=== PATIENT | female | born 1940 | race Caucasian/White ===

== ENCOUNTER 2020-02-23 14:05 | Emergency (ER) | payer MEDICARE, SELFPAY ==
[2020-02-23 14:20] VITALS: BP 146/60; PULSE 71; RESP 18; TEMP 36.6; O2SAT 94
--- NOTE | 2020-02-23 14:20 | ED.EXTPRO ---
HPI - Extremity Problem General Chief complaint: Extremity Problem,Nontraumatic Stated complaint: foot problems History of Present Illness HPI Narrative: This is patient that comes in complaining of leg pain. Patient was prescribed clinidmycin for cellulitis on 01/13/2020. Patient bilateral legs have new wounds that are draining and are not healing and draining. Patient states that pain is intermitten and she is using silver cream that was given last year for a wound. Patient Related Data Home Medications Medication Instructions Recorded Confirmed potassium chloride 10 mEq 10 meq PO DAILY 09/15/19 tablet,extended release fluticasone propionate 50 1 - 2 spray NASAL DAILY PRN ml 01/10/20 mcg/actuation nasal spray,suspension ipratropium bromide 0.02 % See Rx Instructions .ROUTE 01/10/20 solution for inhalation .COMPLEX PRN levothyroxine 150 mcg tablet 150 mcg PO DAILY 01/10/20 nystatin 100,000 unit/gram topical See Rx Instructions .ROUTE .COMPLEX 01/10/20 cream pantoprazole 40 mg tablet,delayed 40 mg PO DAILY tablet 01/10/20 release zolpidem 5 mg tablet 5 mg PO .COMPLEX 01/10/20 albuterol sulfate 02/23/20 budesonide-formoterol [Symbicort] INHALATION 02/23/20 clindamycin HCl 02/23/20 Allergies Allergy/AdvReac Type Severity Reaction Status Date / Time QIANA Inhibitors Allergy Mild Verified 08/11/14 12:21 Penicillins Allergy Unknown Verified 12/08/16 10:22 Review of Systems Review of Systems: Narrative: CONSTITUTIONAL: Denies fever, chills, or sweats. EYES: Denies visual changes, redness, or discharge. ENT: Denies rhinorrhea, congestion, sore throat, or otalgia. CARDIOVASCULAR:Denies chest pain, palpitations, or edema. RESPIRATORY: Denies cough or dyspnea. GASTROINTESTINAL: Denies abdominal pain, nausea, vomiting, or diarrhea. GENITOURINARY: Denies dysuria or hematuria. SKIN:[Denies rash or itching. reports bilateral leg wounds and flaky dry skin MUSCULOSKELETAL:Denies back pain, joint pain, or myalgia. NEUROLOGIC: Denies headache, numbness, or weakness. PSYCHIATRIC:Denies anxiety or depression [facility] Social History Social History Smoking status: Never smoker Second hand tobacco smoke exposure: Yes Alcohol intake: never Comments At time as signature, I have reviewed and agree with nursing past medical, social, surgical and family history. Please see nursing chart for further information. There is no relevant family history pertinent to the presenting complaint. Exam Narrative: Exam Narrative: GENERAL:Well-appearing, well-nourished, and in no acute distress. HEAD:Normocephalic, atraumatic. EYES: PERRLA and EOMI. ENT: Nares clear, no rhinorrhea or epistaxis. Mucous membranes moist. NECK: Supple. CHEST: Clear to auscultation. No respiratory distress. HEART: Regular rate and rhythm. No murmur heard. Normal peripheral pulses. ABDOMEN: Soft, nontender, nondistended, normal active bowel sounds. EXTREMITIES: Normal range of motion. 4+ pitting edema with bilateral leg flaking and some erythema and open wounds on biateral heels with foul smelling yellowish drainage and some maceration starting. . SKIN: Warm, dry, no rash. NEURO: No focal deficits. Alert and oriented x3. 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 Information faxed to [facility] [phone] per patient request due that is who she used to have. Call placed to Dr. Hinojosa who is not bath design sales consultant so call placed to .dr Vazquez . Spoke with Arun who informed me that they generally make their own decisions for their own patient but since the insurance will pay for and this patient has already had them before he does not see any reason why this patient cannot be seen by home health and to make sure to have them follow up with Micaela Vital Signs Vital signs: Vital Signs Temperature 97.9 F 02/23/20 14:20
--- NOTE | 2020-02-23 14:39 | PC.NURSE ---
aware commodity supervisor will measure legs.
--- NOTE | 2020-02-23 14:41 | PC.NURSE ---
scallop cutter machine called for wound consult and assistance at home with care.
--- NOTE | 2020-02-23 14:52 | PC.NURSE ---
awaiting call back from pmd or covering pmd.
--- NOTE | 2020-02-23 15:21 | PC.NURSE ---
arleen wrap applied to left foot lower ankle area.
--- NOTE | 2020-02-23 15:32 | PC.NURSE ---
arleen wrap was loosely applied to left lower ankle foot area. given second arleen wrap to change if soiled with drainage. stated has friend at home that can help to change.
--- NOTE | 2020-02-23 15:35 | PC.NURSE ---
[employer] did fax information in regard to pt pmd bacon stringer consult by president mortgage company for wound care.
== END 2020-02-23 15:42 | disposition home or self-care (01) ==
PROVIDERS: Emergency Provider Nurse Practitioner Family; PCP Emergency Medicine
DX: R60.0 Localized edema (principal); L98.8 Other specified disorders of the skin and subcutaneous tissue; Z86.718 Personal history of other venous thrombosis and embolism; I10 Essential (primary) hypertension; I73.9 Peripheral vascular disease, unspecified; J44.9 Chronic obstructive pulmonary disease, unspecified; F32.9 Major depressive disorder, single episode, unspecified; E03.9 Hypothyroidism, unspecified
CPT/HCPCS: 99212; G0463

== ENCOUNTER 2020-04-06 15:24 | Observation (INO) | payer MEDICARE, MEDICAID, SELFPAY ==
[2020-04-06] VITALS (25 sets, daily range): BP systolic 102–146; BP diastolic 61–78; PULSE 66–80; RESP 15–20; TEMP 36.4–36.8; O2SAT 90–98; BMI 38.7
--- NOTE | ~2020-04-06 | XR_ITS ---
EXAMINATION: XR shoulder RT min 2V EXAM DATE: 04/06/2020 17:13 INDICATION: Right shoulder pain, fall. TECHNIQUE: The following right shoulder projections obtained: frontal projection , Grashey, and scapu lar Y view (4+ views). There is no prior study for comparison. FINDINGS: There is acute mildly comminuted right humeral neck fracture with posterior angulation, ant erior displacement. There is also fracture of the greater tuberosity of the right humeral head. Close d, posttraumatic findings. Overlying soft tissue swelling. IMPRESSION: Acute comminuted right humeral neck and greater tuberosity fractures. Reviewed, dictated and finalized at location A. IMPRESSION: Acute comminuted right humeral neck and greater tuberosity fractdonato es.
--- NOTE | ~2020-04-06 | US_ITS ---
EXAMINATION: US carotid duplex BI DATE: 04/07/2020 08:59 INDICATION: Vertigo. TECHNIQUE: Grayscale, color Doppler, and pulsed Doppler images of the cervical carotid arteries were obtained. The degree of vessel stenosis is placed in one of the following categories: normal, <50%, 5 0-69%, >=70% but less than near-occlusion, near-occlusion, or total occlusion. Note that percent sten osis relative to normal distal artery lumen diameter is indirectly measured from velocity measurement s as described by Michael, et al. Radiology 2003; [id number]. COMPARISON: None. FINDINGS: RIGHT: The right common carotid artery (CCA) peak systolic velocity (PSV) is 102 cm/s. The right internal ca rotid artery (ICA) PSV is 74 cm/s. The right ICA end-diastolic velocity (EDV) is 11 cm/s. The right I CA/CCA PSV ratio is 0.7. Grayscale and color Doppler images yield an estimate of <50% diameter reduct ion from plaque in the ICA. There is antegrade flow in the right vertebral artery. LEFT: The left CCA PSV is 87 cm/s. The left ICA PSV is 87 cm/s. The left ICA EDV is 16 cm/s. The left ICA/C CA PSV ratio is 1.0. Grayscale and color Doppler images yield an estimate of <50% diameter reduction from plaque in the ICA. There is antegrade flow in the left vertebral artery. IMPRESSION: 1. <50% stenosis in the right internal carotid artery. 2. <50% stenosis in the left internal carotid artery. Reviewed, dictated and finalized at location A.
--- NOTE | ~2020-04-06 | CT_ITS ---
EXAMINATION: CT cervical spine wo con DATE: 04/07/2020 08:59 INDICATION: Neck discomfort. Fall. TECHNIQUE: Computed tomography (CT) of the cervical spine was performed without intravenous contrast. Automated exposure control and iterative reconstruction technique were employed. The dose-length pro duct was 511.05 mGy-cm. COMPARISON: None FINDINGS: There is mild emphysema. There is a coarse calcification in right thyroid lobe. Bone alignm ent is normal. Vertebral body heights are normal. There is moderately decreased disc height at C4-C5. The following disc levels are specifically discussed: C2-C3: There is no uncovertebral joint osteoarthritis. There is mild right and severe left facet join t osteoarthritis. There is mild left neural foraminal stenosis. There is no central canal stenosis. C3-C4: There is no uncovertebral joint osteoarthritis. There is mild bilateral facet joint osteoarthr itis. There is no neural foraminal stenosis. There is no central canal stenosis. C4-C5: There is severe right and mild left uncovertebral joint osteoarthritis. There is mild right an d moderate left facet joint osteoarthritis. There is mild bilateral neural foraminal stenosis. There is mild central canal stenosis. C5-C6: There is mild bilateral uncovertebral joint osteoarthritis. There is mild right and severe lef t facet joint osteoarthritis. There is mild left neural foraminal stenosis. There is no central canal stenosis. C6-C7: There is no uncovertebral joint osteoarthritis. There is severe bilateral facet joint osteoart hritis. There is mild bilateral neural foraminal stenosis. There is no central canal stenosis. C7-T1: There is no uncovertebral joint osteoarthritis. There is severe right and moderate left facet joint osteoarthritis. There is mild right neural foraminal stenosis. There is no central canal stenos is. IMPRESSION: 1. No fracture. 2. Moderate cervical spondylosis. Reviewed, dictated and finalized at location A.
--- NOTE | ~2020-04-06 | CT_ITS ---
EXAMINATION: CT brain wo con DATE: 04/07/2020 08:59 INDICATION: Vertigo. TECHNIQUE: Computed tomography (CT) of the head was performed without intravenous contrast. The dose- length product was 605.33 mGy-cm. The mA was adjusted according to patient size. Iterative reconstruc tion technique was employed. COMPARISON: None FINDINGS: No acute intracranial hemorrhage, infarction, mass or mass effect. There are scattered mild periventricular and subcortical white matter changes, most likely related to small vessel ischemic d isease (microangiopathy). No ventriculomegaly or midline shift. Basilar cisterns are patent. Midline sagittal images are unrema rkable. Paranasal sinuses and mastoids are pneumatized. No depressed skull fractures. IMPRESSION: 1. No acute intracranial abnormality. 2: Chronic age-related findings. Reviewed, dictated and finalized at location A.
--- NOTE | ~2020-04-06 | XR_ITS ---
EXAMINATION: XR chest 1V portable EXAM DATE: 04/08/2020 16:19 INDICATION: Hypoxia. Right humeral head fracture. TECHNIQUE: Portable AP frontal chest x-ray was obtained. Comparison is made to prior examination from 04/06/2020. FINDINGS: Cardiomegaly and pulmonary vascular congestion. Some prominent reticulation, possible mild pulmonary edema. Probable small pleural effusions. Bibasilar subsegmental atelectasis. No pneumothora x, confluent consolidation. There is aortic arteriosclerosis. Comminuted right humeral neck fracture with interval increase in displacement. IMPRESSION: 1. Possible developing fluid overload/CHF. 2. Comminuted right humeral neck fracture with increase in displacement. 3. Bibasilar atelectasis. Reviewed, dictated and finalized at location A.
--- NOTE | ~2020-04-06 | XR_ITS ---
EXAMINATION: XR chest 1V portable EXAM DATE: 04/06/2020 17:13 INDICATION: Wheezing. TECHNIQUE: Frontal and lateral projections of the chest obtained and reviewed. Comparison is made to prior examination from 12/22/2018. FINDINGS: Mildly increased density right lower lateral lung zone new compared to prior study, probabl y subsegmental atelectasis. There are no pleural effusions. The cardiomediastinal silhouette is with in normal limits. There is no pneumothorax suspected. Right humeral neck fracture. Prominent right epicardial fat pad again noted. IMPRESSION: 1. Small amount of right basilar opacity probably atelectasis. 2. Right humeral neck fracture. Reviewed, dictated and finalized at location A.
--- NOTE | 2020-04-06 15:54 | PC.NURSE ---
Pt fell on ground and laid there from last night at approx 2200 til 1400 today. Pt has echymosis to R shoulder and upper arm. Pt states she can not move her R arm. Pt states she has R knee pain. Pt states she has back pain. Pt states she got dizzy and that is why she fell. Pt states she did not hit her head. Pt states she gets dizzy often. Pt O2 was 89-91% on RA. 2L/n.c applied and O2 now 96%.Pt has call light in reach
[2020-04-06 16:31] LABS: Basophils Percent Auto 0.4 % (0.2-1.2); Hematocrit 45.7 % (37.0-47.0); Hemoglobin 15.1 g/dL (12.0-15.0); Immature Granulocyte Absolute 0.02 K/mm3 (0.00-0.031); Immature Granulocyte Percent A 0.2 % (0-0.5); Lymphocytes Absolute Auto 1.12 K/mm3 (0.9-3.2); Lymphocytes Percent Auto 13.3 % (18.3-44.2); Mean Corpuscular Hemoglobin 29.2 pg (26-34); Mean Corpuscular Volume 88.2 fl (80-100); Mean Platelet Volume 11.8 fl (7.4-10.4); Monocytes Absolute Auto 0.7 K/mm3 (0.1-0.6); Monocytes Percent Auto 8.4 % (2.6-8.5); Neutrophils Absolute Auto 6.5 K/mm3 (1.3-6.7); Neutrophils Percent Auto 77.7 % (45.5-73.1); Platelet Count Result 268 k/mm3 (150-375); Red Blood Count 5.18 M/mm3 (4.2-5.4); Red Cell Distribution Width 15.1 % (11.5-14.5); White Blood Count 8.4 K/mm3 (4.5-10.0)
[2020-04-06 16:42] LABS: Alanine Aminotransferase 19 U/L (4-35); Albumin Level 3.9 g/dL (3.5-5.1); Alkaline Phosphatase 111 U/L (38-126); Aspartate Amino Transferase 33 U/L (14-36); Bilirubin,Total 0.8 mg/dL (0.2-1.3); Blood Urea Nitrogen 17 mg/dL (7-17); Calcium 9.6 mg/dL (8.4-10.2); Carbon Dioxide 29 mmol/L (22-30); Chloride 102 mmol/L (98-107); Creatine Kinase 354 U/L (30-135); Estimated CRCL calculation 62 ml/min; Estimated Glomerular Filt Rate > 60; Glucose 141 mg/dL (65-105); Potassium 3.8 mmol/L (3.4-5.0); Sodium 138 mmol/L (137-145)
[2020-04-06 17:02] LABS: Add Urine Microscopic? YES; Appearance Urine Clear (Clear); Bacteria Urine Trace /hpf; Bilirubin Urine Negative (Negative); Blood Urine Negative (Negative); Color Urine Yellow (Yellow); Glucose Urine UA Negative (Negative); Ketones Urine Negative (Negative); Leukocyte Esterase Ur Negative LEU/UL (Negative); Mucus Urine Few /lpf; Nitrate Urine Negative (Negative); Protein Urine 1+ mg/dL (Negative); RBC Urine 0-2 /hpf (0-2); Specific Grav Ur 1.029 (1.001-1.035); Squamous Epithelial Cell Urine Rare /hpf (Few); Urobilinogen Urine Negative mg/dL (<2.0); WBC Urine 0-3 /hpf
--- NOTE | 2020-04-06 17:11 | ED.GENADULT ---
HPI - General Adult General Chief complaint: Fall Stated complaint: FALL History of Present Illness HPI narrative: Patient is a 79-year-old female who presents the ER after a fall last night. Patient was laying in her recliner when she got dizzy and tried to get up. She then fell over the armchair and onto her side. She is unable to get herself up off the floor due to pain and her size. Patient has significant pain in her right shoulder and is unable to perform range of motion. Denies striking her head or losing consciousness. No difficulty breathing despite having pulse oximetry reading of 88% on room air. She has COPD and continues to smoke but is not oxygen dependent. No new cough or fever. Related Data Home Medications Medication Instructions Recorded Confirmed potassium chloride 10 mEq 10 meq PO DAILY 09/15/19 tablet,extended release fluticasone propionate 50 1 - 2 spray NASAL DAILY PRN ml 01/10/20 mcg/actuation nasal spray,suspension ipratropium bromide 0.02 % See Rx Instructions .ROUTE 01/10/20 solution for inhalation .COMPLEX PRN levothyroxine 150 mcg tablet 150 mcg PO DAILY 01/10/20 nystatin 100,000 unit/gram topical See Rx Instructions .ROUTE .COMPLEX 01/10/20 cream pantoprazole 40 mg tablet,delayed 40 mg PO DAILY tablet 01/10/20 release zolpidem 5 mg tablet 5 mg PO .COMPLEX 01/10/20 albuterol sulfate 02/23/20 budesonide-formoterol [Symbicort] INHALATION 02/23/20 Allergies Allergy/AdvReac Type Severity Reaction Status Date / Time QIANA Inhibitors Allergy Mild Unknown Verified 04/06/20 15:34 Penicillins Allergy Unknown Hives Verified 04/06/20 15:34 Review of Systems Review of Systems: All systems reviewed & are unremarkable except as noted in HPI and below Constitutional: Constitutional: Denies fatigue, Denies fever(s) and Denies weakness ENT: Denies nasal congestion and Denies sore throat Cardiovascular: Cardiovascular: Denies chest pain and Denies radiating jaw, neck or arm pain Respiratory: Respiratory: Denies cough, Denies dyspnea and Reports wheezing Gastrointestinal: Gastrointestinal: Denies abdominal pain, Denies nausea and Denies vomiting Musculoskeletal: Musculoskeletal: Reports arthralgias PMF Past Medical History Medical History (Updated 04/06/20 @ 18:38 by Jacek Del Cid MD) Depression Hyperglycemia Hypothyroidism (acquired) Surgical History Surgical History (Updated 04/06/20 @ 18:34 by Jacek Del Cid MD) History of section History of cholecystectomy Social History Social History Smoking status: Never smoker Second hand tobacco smoke exposure: Yes Alcohol intake: never Gender identity (if verbalized by the patient): Female Exam Narrative: Exam Narrative: GENERAL: Chronically ill-appearing, morbidly obese, and in no acute distress. HEAD: Normocephalic, atraumatic. ENT: Mucous membranes moist. CHEST: Expiratory wheezing throughout. No respiratory distress. HEART: Regular rate and rhythm. Normal peripheral pulses. ABDOMEN: Soft, nontender, nondistended. EXTREMITIES: Limited range of motion of the right upper extremity at the shoulder, significant bruising in this area with tenderness palpation. Otherwise able to range at the elbow and wrist in the affected extremity. SKIN: Warm, dry, chronic venous stasis changes with cracked skin is slightly pink in color to the lower extremities. NEURO: Alert and oriented x3. PSYCH: Normal mood and affect. Course Course Emergency Course: Patient will be admitted to the hospitalist service and orthopedic surgery has been consulted. Patient will be placed in a sling for immobilization/comfort. Patient will likely need fci placement given her recent injury, her decrease in ability to be mobile, and living by herself. Vital Signs Vital signs: Vital Signs Temperature 97.6 F 04/06/20 15:34 Pulse Rate 73 04/06/20 15:34 Respiratory Rate 18 04/06/20 15:34 Bloo
--- NOTE | 2020-04-06 19:49 | PC.NURSE ---
Pt has #20 IV gauge in RFA
--- NOTE | 2020-04-06 20:27 | ADMGEN ---
This patient, Arielle Pittman, was admitted to [facility] Surg Room 316-01. Patient/family oriented to hospital policies and general routines including ID bracelet, bed and alarms, visiting hours, pain management, procedures, bathroom and other care routines, personal items, smoking policy, room service/diet, and visiting hours. Valuables list has been completed. Information on how to activate the Rapid Response Team has been discussed. Patient/Family are encouraged to report perceived risks to care and to ask questions if they do not understand what they are told or what they should do.
[2020-04-06] MEDS: ALBUTEROL SULFATE NEB 2.5 MG/0.5 ML INH 5 MG INHALATION (20:52)
[2020-04-06] MEDS: IPRATROPIUM BR 0.02% INH SOLN 0.5 MG/2.5 ML VIAL INHALATION (20:53)
[2020-04-06] MEDS: ONDANSETRON INJ 4 MG/2 ML VIAL IV PUSH (23:16)
[2020-04-07] VITALS (17 sets, daily range): BP systolic 116–148; BP diastolic 52–59; PULSE 56–80; RESP 18–22; TEMP 36.6–36.8; O2SAT 92–94; BMI 38.7
[2020-04-07] MEDS: ALBUTEROL SULFATE NEB 2.5 MG/0.5 ML INH 5 MG INHALATION ×4 (01:57→20:48)
[2020-04-07] MEDS: IPRATROPIUM BR 0.02% INH SOLN 0.5 MG/2.5 ML VIAL INHALATION ×4 (01:58→20:49)
--- NOTE | 2020-04-07 04:22 | PM.IMHP ---
H&P: HPI History of Present Illness Chief complaint: Fell and could not get up Narrative: Date and time of patient contact: 04/07/2020 at 5:00 a.m.. Arielle Pittman is a 79 year old female with a past medical history of COPD, peripheral vascular disease, and morbid obesity who presented to the ER from home via EMS after having fallen. The patient reported that she fell on the evening of the and laid on the floor until her neighbor found her on the afternoon of the . The patient reports that she was going to sit down in her recliner and the room started spinning she got nauseated and she fell. She fell landing on her right arm. She was unable to push herself up off the floor. She reports that she has been having intermittent dizziness if she would hold her head in a certain position. She denies the vertigo being instituted by turning her head a certain way. She reports that the room literally spins. The symptoms have been going on for 3 days. She reports that if she puts her head back on the pillow with her head elevated at 40? if she leaves her head in that position for 30 seconds or so she becomes extremely dizzy, nauseated and weak. She denies any headache or head trauma. She denies any history of having strokes or prior episodes of vertigo. She reports that her right ear is always dry and has flaky material in it. She reports that it itches all the time so she does use Q-tips. She denies any ear pain in either ear. She denies any changes in hearing. She does ambulate with a walker or a cane. She states that she is independent in activities of daily living and still drives. She reports that she has a chronic cough. She still continues to smoke 1.5 packs of cigarettes per day. She has a cough that is productive of clear sputum. She reports improvement in her cough with nebulized treatments. She denies any recent ill contacts. She has not had any recent travel. She denies any changes in her bowel habits. She denies any problems with urinary incontinence when she coughs. She has chronic venous stasis changes to her lower extremities with thick flaking skin. She reports that her vascular doctor gave her a tub of cream that she is post use on her legs daily. However she is not able to reach her own feet and ankles. She states that she is supposed to see the pre sales network engineer today or tomorrow as outpatient. She reports that her legs are always red and she does not think there any more swollen than usual. She reports that she pays her bills via money order. She is very concerned that she will not be able to pay her bills today. She cannot think of anyone she would trust 2 pay her bills. Review of Systems Review of Systems: Narrative: 12 systems were reviewed with pertinent positives and negatives per HPI. Except as documented in the HPI, all other systems were reviewed and are negative. [facility] Past Medical History Medical History (Updated 04/07/20 @ 07:19 by Macy Reed DO) Chronic venous stasis dermatitis COPD (chronic obstructive pulmonary disease) Depression Hyperglycemia Hypothyroidism (acquired) Kidney stones Right kidney stone December 2018 Rheumatoid arthritis Surgical History Surgical History (Updated 04/07/20 @ 04:45 by Macy Reed DO) History of section X1 History of cholecystectomy History of evacuation of hematoma Of lateral thigh 2013 Status post cataract extraction of both eyes with insertion of intraocular lens 2003 Family History Family History (Updated 04/07/20 @ 04:31 by Macy Reed DO) Sibling Patient's sister is in good health Mother Diabetes mellitus, Onset Age: 41 Father Heart attack Cardiovascular disease Social History Social History (Updated 04/07/20 @ 07:12 by Macy Reed DO) Social History: Primary care physician: Dr. Henry Hinojosa Code status: DNI Medical POA: Fatemeh Pittman Smoking packs per
[2020-04-07 06:12] LABS: Hematocrit 43.4 % (37.0-47.0); Hemoglobin 13.9 g/dL (12.0-15.0); Mean Corpuscular Hemoglobin 28.8 pg (26-34); Mean Platelet Volume 12.1 fl (7.4-10.4); Platelet Count Result 278 k/mm3 (150-375); Red Blood Count 4.82 M/mm3 (4.2-5.4); Red Cell Distribution Width 15.4 % (11.5-14.5); White Blood Count 8.8 K/mm3 (4.5-10.0)
[2020-04-07 06:20] LABS: Blood Urea Nitrogen 19 mg/dL (7-17); Carbon Dioxide 33 mmol/L (22-30); Chloride 100 mmol/L (98-107); Creatine Kinase 194 U/L (30-135); Estimated CRCL calculation 54 ml/min; Estimated Glomerular Filt Rate 60; Glucose 128 mg/dL (65-105); Potassium 3.9 mmol/L (3.4-5.0); Sodium 140 mmol/L (137-145)
[2020-04-07] MEDS: SODIUM CHLORIDE 0.9% IV 1,000 ML 80 ML IV CONT ×2 (06:32→19:12)
[2020-04-07] MEDS: LEVOTHYROXINE SODIUM 150 MCG TABLET PO (06:34)
[2020-04-07] MEDS: EUCERIN CREAM 120 GM JAR 1 APPLIC TOPICAL (09:48)
[2020-04-07] MEDS: SERTRALINE HCL 25 MG TABLET PO (09:48)
[2020-04-07] MEDS: POTASSIUM CHLORIDE 10 MEQ TABLET.ER PO (09:49)
[2020-04-07] MEDS: PANTOPRAZOLE 40 MG TABLET PO (09:49)
[2020-04-07] MEDS: methocarbamoL 500 MG TABLET PO ×4 (09:49→20:05)
[2020-04-07] MEDS: LOSARTAN POTASSIUM 50 MG TABLET PO (09:49)
[2020-04-07] MEDS: ONDANSETRON INJ 4 MG/2 ML VIAL IV PUSH (10:08)
--- NOTE | 2020-04-07 17:11 | PM.IMPN ---
Progress Note: A&P Assessment and Plan (1) Fracture of neck of humerus: Qualifiers: Encounter type: initial encounter Fracture type: closed Laterality: right Qualified Code(s): S42.211A - Unspecified displaced fracture of surgical neck of right humerus, initial encounter for closed fracture Code(s): S42.213A - Unspecified displaced fracture of surgical neck of unspecified humerus, initial encounter for closed fracture Status: Acute Assessment and Plan: Patient's arm is in an immobilizer. Dr. Yoon has been consulted. The patient will need placement for rehabilitation at discharge. (2) Vertigo: Code(s): R42 - Dizziness and giddiness Status: Acute Assessment and Plan: Given the patient's smoking history and history of peripheral vascular disease she has certainly had increased risk of stroke. But vertigo is positional and CT of the brain, carotid Doppler and CT of C-spine all unremarkable Will also check carotid Dopplers. meclizine as needed for vertigo. The patient reports frequent dry heaves due to vertigo related nausea. holding the patient's home Lasix and actually initiated IV fluids as the patient appears clinically dry. (3) Chronic obstructive pulmonary disease with hypoxia: Code(s): J44.9 - Chronic obstructive pulmonary disease, unspecified; R09.02 - Hypoxemia Status: Acute Assessment and Plan: l resumed the patient's home Symbicort and p.r.n. albuterol and Atrovent nebs. The patient would benefit from smoking cessation. Nicotine patch will be provided if desired. (4) Fall as cause of accidental injury in home as place of occurrence: Qualifiers: Encounter type: initial encounter Qualified Code(s): W19.XXXA - Unspecified fall, initial encounter; Y92.009 - Unspecified place in unspecified non-institutional (private) residence as the place of occurrence of the external cause Code(s): W19.XXXA - Unspecified fall, initial encounter; Y92.009 - Unspecified place in unspecified non-institutional (private) residence as the place of occurrence of the external cause Status: Acute Assessment and Plan: Patient fell and was down for a little less than 24 hours before neighbors found her. CK was mildly elevated in the ER at 324 a.m. and decreased to 194 this a.m.. placed the patient on fall precautions. Patient will need placement given her acute humeral fracture and her difficulties with mobility. Subjective Date/time seen: 04/07/20 17:11 Interval history: Date of visit 04/07. 79-year-old hypertensive obese white female and fallen at home and unable to get up till neighbor found her. Blood to the emergency room found to have fractured humerus with mildly elevated CPK and admitted for treatment of same. She has been having positional vertigo at home. While sitting semi reactive in bed she is comfortable without any significant pain and no dizziness Exam Narrative: Exam Narrative: Blood pressure 116/52 pulse 64 afebrile Pupils equal reactive to light sclera anicteric Lungs clear CV regular rate rhythm no murmurs Abdomen soft nontender no masses Extremities right arm in a sling radial pulses 2+ symmetrical and moves fingers well Neuro alert cranial nerves are intact Objective Data Vital Signs Vital Signs: Vital Signs - 24 hr 04/06/20 17:15 04/06/20 17:30 04/06/20 17:45 Temperature Pulse Rate Respiratory Rate Blood Pressure Pulse Oximetry 94 95 95 04/06/20 18:00 04/06/20 18:15 04/06/20 18:30 Temperature Pulse Rate Respiratory Rate Blood Pressure Pulse Oximetry 96 98 98 04/06/20 18:45 04/06/20 19:41 04/06/20 19:58 Temperature 36.8 C Pulse Rate 67 72 Respiratory Rate 15 18 Blood Pressure 116/61 102/75 Pulse Oximetry 95 94 95 04/06/20 20:53 04/06/20 21:01 04/06/20 22:00 Temperature 36.6 C Pulse Rate 78 80 70 Respiratory Rate 20 20 18 Blood Pressure 146/
[2020-04-08] VITALS (20 sets, daily range): BP systolic 114–139; BP diastolic 45–50; PULSE 58–90; RESP 20–24; TEMP 36.7–37.1; O2SAT 89–97
[2020-04-08] MEDS: ALBUTEROL SULFATE NEB 2.5 MG/0.5 ML INH 5 MG INHALATION ×4 (04:19→21:39)
[2020-04-08] MEDS: IPRATROPIUM BR 0.02% INH SOLN 0.5 MG/2.5 ML VIAL INHALATION ×4 (04:19→21:39)
[2020-04-08] MEDS: LEVOTHYROXINE SODIUM 150 MCG TABLET PO (05:40)
[2020-04-08 06:04] LABS: Blood Urea Nitrogen 17 mg/dL (7-17); Calcium 8.3 mg/dL (8.4-10.2); Carbon Dioxide 34 mmol/L (22-30); Chloride 104 mmol/L (98-107); Creatine Kinase 94 U/L (30-135); Estimated CRCL calculation 68 ml/min; Estimated Glomerular Filt Rate > 60; Glucose 112 mg/dL (65-105); Potassium 3.7 mmol/L (3.4-5.0); Sodium 141 mmol/L (137-145)
[2020-04-08] MEDS: NICOTINE (*PBKC) 21 MG PATCH 1 PATCH TRANSDERM (08:10)
[2020-04-08] MEDS: methocarbamoL 500 MG TABLET PO ×3 (08:10→20:44)
[2020-04-08] MEDS: FLUTICASONE PROPIONATE 0.05% NA SPR 16 GM BTL (*BKC) NASAL (08:10)
[2020-04-08] MEDS: LOSARTAN POTASSIUM 50 MG TABLET PO (08:11)
[2020-04-08] MEDS: SERTRALINE HCL 25 MG TABLET PO (08:11)
[2020-04-08] MEDS: PANTOPRAZOLE 40 MG TABLET PO (08:11)
[2020-04-08] MEDS: POTASSIUM CHLORIDE 10 MEQ TABLET.ER PO (08:11)
[2020-04-08] MEDS: EUCERIN CREAM 120 GM JAR 1 APPLIC TOPICAL (08:11)
--- NOTE | 2020-04-08 11:05 | PCOTNOTE ---
Awaiting Ortho consult. Will complete OT evaluation when medically appropriate.
--- NOTE | 2020-04-08 14:39 | PM.IMPN ---
Progress Note: A&P Assessment and Plan (1) Fracture of neck of humerus: Qualifiers: Encounter type: initial encounter Fracture type: closed Laterality: right Qualified Code(s): S42.211A - Unspecified displaced fracture of surgical neck of right humerus, initial encounter for closed fracture Code(s): S42.213A - Unspecified displaced fracture of surgical neck of unspecified humerus, initial encounter for closed fracture Status: Acute Assessment and Plan: The patient suffered a mechanical fall. Right shouldler xray revealed an acute comminuted right humeral neck and greater tuberosity fracture. Dr. Yoon is on board and advised that they will proceed with non-operative management. She has the arm immobilized in a sling and will continue this per ortho. Management per ortho. Dr. Yoon is on board. Recommendations are greatly appreciated. Continue immobilization with sling Discussed with Dr. Yoon and the patient and the patient is willing to proceed with SNF at discharge Will check vitamin D level (2) Vertigo: Code(s): R42 - Dizziness and giddiness Status: Acute Assessment and Plan: The patient reports dizziness which is positional. She describes that she feels that the room is spinning. She denies lightheadedness. Her sx are likely due to benign positional vertigo. CT brain, carotid doppler, and CT C-spine were ordered due to the patients smoking hx and risk for PVD and were unremarkable. She has not taken meclizine yet. Will schedule meclizine Continue to monitor (3) Chronic obstructive pulmonary disease with hypoxia: Code(s): J44.9 - Chronic obstructive pulmonary disease, unspecified; R09.02 - Hypoxemia Status: Acute Assessment and Plan: Oxygen saturation at presentation to the ED was 88% on room air. She has a 91.5 pack-year smoking hx. She is on 2L per NC. She has expiratory wheezes and bronchial crackles. CO2 is elevated at 34, likely due to chronic retention from COPD. Will order repeat CXR Continue supplemental oxygen as needed to achieve a pulse oxygen saturation of 92% Continue nebulized bronchodilators as needed Continue symbicort Continue to encourage smoking cessation (4) Fall as cause of accidental injury in home as place of occurrence: Qualifiers: Encounter type: initial encounter Qualified Code(s): W19.XXXA - Unspecified fall, initial encounter; Y92.009 - Unspecified place in unspecified non-institutional (private) residence as the place of occurrence of the external cause Code(s): W19.XXXA - Unspecified fall, initial encounter; Y92.009 - Unspecified place in unspecified non-institutional (private) residence as the place of occurrence of the external cause Status: Acute Assessment and Plan: The patient suffered a mechanical fall and was down approx 24 hours prior to her neighbor finding her. CK was elevated at 354 at presentation and has trended down to 94 today. Continue fall precautions Pt paul need placement to continue PT/OT due to her acute humeral fracture affecting her dominant side. (5) Discharge planning issues: Code(s): Z02.9 - Encounter for administrative examinations, unspecified Status: Acute Assessment and Plan: The pt has agreed to go to SNF at discharge. Care coordination has sent out referrals. (6) Tobacco dependence: Code(s): F17.200 - Nicotine dependence, unspecified, uncomplicated Status: Acute Assessment and Plan: The pt is a heavy 91.5 pack-year smoker. I have encouraged smoking cessation. Continue to encourage smoking cessation Continue nicoderm patch Subjective Date/time seen: 04/08/20 14:39 Interval history: Mrs. Pittman is seen and examined at bedside. She reports positional vertigo intermittently. She denies lightheadedness. She denies headache. She denies chest pain and shortness of breath. S
[2020-04-08] MEDS: SODIUM CHLORIDE 0.9% IV 1,000 ML 80 ML IV CONT (15:32)
[2020-04-08 16:40] LABS: Blood Urea Nitrogen 16 mg/dL (7-17); Calcium 8.6 mg/dL (8.4-10.2); Carbon Dioxide 32 mmol/L (22-30); Chloride 104 mmol/L (98-107); Estimated CRCL calculation 68 ml/min; Estimated Glomerular Filt Rate > 60; Glucose 124 mg/dL (65-105); Potassium 3.8 mmol/L (3.4-5.0); Sodium 138 mmol/L (137-145)
[2020-04-08] MEDS: MECLIZINE HCL 12.5 MG TABLET PO ×2 (16:52→20:44)
[2020-04-08] MEDS: FUROSEMIDE INJ 40 MG/4 ML VIAL 20 MG IV PUSH (18:09)
[2020-04-08] MEDS: DORNASE ALFA INH SOLN 1 MG/ML 2.5 ML AMP 2.5 MG INHALATION (21:40)
[2020-04-09] VITALS (16 sets, daily range): BP systolic 115–121; BP diastolic 40–72; PULSE 61–89; RESP 16–22; TEMP 36.8–37; O2SAT 88–98
[2020-04-09 06:30] LABS: Hematocrit 39.6 % (37.0-47.0); Hemoglobin 12.5 g/dL (12.0-15.0); Mean Corpuscular HGB Conc 31.6 g/dl (32-36); Mean Corpuscular Hemoglobin 29.8 pg (26-34); Mean Corpuscular Volume 94.5 fl (80-100); Mean Platelet Volume 12.3 fl (7.4-10.4); Platelet Count Result 243 k/mm3 (150-375); Red Blood Count 4.19 M/mm3 (4.2-5.4); Red Cell Distribution Width 16.1 % (11.5-14.5); White Blood Count 10.4 K/mm3 (4.5-10.0)
[2020-04-09] MEDS: LEVOTHYROXINE SODIUM 150 MCG TABLET PO (06:37)
--- NOTE | 2020-04-09 07:39 | PM.CNOR ---
Assessment and Plan Assessment and plan (1) Fracture of neck of humerus: Qualifiers: Encounter type: initial encounter Fracture type: closed Laterality: right Qualified Code(s): S42.211A - Unspecified displaced fracture of surgical neck of right humerus, initial encounter for closed fracture Code(s): S42.213A - Unspecified displaced fracture of surgical neck of unspecified humerus, initial encounter for closed fracture Status: Acute (2) Closed fracture of greater tuberosity of humerus: Qualifiers: Encounter type: initial encounter Fracture alignment: displaced Laterality: right Qualified Code(s): S42.251A - Displaced fracture of greater tuberosity of right humerus, initial encounter for closed fracture Code(s): S42.253A - Displaced fracture of greater tuberosity of unspecified humerus, initial encounter for closed fracture Status: Acute Assessment and Plan: Displaced proximal humerus fracture may be treated conservatively. Poor surgical candidate. Risks discussed. Limited motion and decreased functional strength expected. Continue sling for 4 weeks. Home with home health vs rehab. History of Present Illness HPI Consult date: 04/09/20 Consult reason: fracture Chief complaint: Fell and could not get up Narrative: Complains of severe right shoulder pain. Began after a fall several days ago. Was unable to get up off the floor, and found on the ground. History of dizzyness. No other injuries. Treated with a sling. Review of Systems Constitutional: Constitutional: Reports weakness Eyes: Eyes: Denies blurry vision ENT: Denies system reviewed and no additional complaints, except as documented Cardiovascular: Cardiovascular: Reports leg edema and Reports lightheadedness Respiratory: Respiratory: Reports cough Gastrointestinal: Gastrointestinal: Reports no additional gastrointestinal complaints Genitourinary: Genitourinary: Reports no additional female genitourinary complaints Musculoskeletal: Musculoskeletal: Reports arthralgias Integumentary/Breasts: Skin/Breast: Reports system reviewed and no additional complaints, except as docu Neurologic: Reports system reviewed and no additional complaints, except as documented Psychiatric: Psychiatric: Reports no additional psychiatric complaints [facility] Past Medical History Medical History Chronic venous stasis dermatitis COPD (chronic obstructive pulmonary disease) Depression Hyperglycemia Hypothyroidism (acquired) Kidney stones Right kidney stone December 2018 Rheumatoid arthritis Surgical History Surgical History History of section X1 History of cholecystectomy History of evacuation of hematoma Of lateral thigh 2014 Status post cataract extraction of both eyes with insertion of intraocular lens 2003 Family History Family History Sibling Patient's sister is in good health Mother Diabetes mellitus, Onset Age: 41 Father Heart attack Cardiovascular disease Social History Social History Social History: Primary care physician: Dr. Henry Hinojosa Code status: DNI Medical POA: Fatemeh Pittman Smoking packs per day: 1.5 Smoking cigarettes per day: 30.0 Years smoked: 61 Smoking pack-years: 91.50 Smoking status: Current every day smoker Tobacco type: cigarettes Second hand tobacco smoke exposure: No Alcohol intake: never Substance use: never Living arrangements: alone Additional living arrangements comments: The patient has been since 2013. [place]. She still drives. She has 1 daughter. 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 Gender identit
[2020-04-09 07:41] LABS: Vitamin D 25 Hydroxy 24.7 ng/mL
[2020-04-09] MEDS: POTASSIUM CHLORIDE 10 MEQ TABLET.ER PO (08:08)
[2020-04-09] MEDS: LOSARTAN POTASSIUM 50 MG TABLET PO (08:08)
[2020-04-09] MEDS: SERTRALINE HCL 25 MG TABLET PO (08:08)
[2020-04-09] MEDS: PANTOPRAZOLE 40 MG TABLET PO (08:08)
[2020-04-09] MEDS: methocarbamoL 500 MG TABLET PO ×4 (08:08→21:58)
[2020-04-09] MEDS: MECLIZINE HCL 12.5 MG TABLET PO ×4 (08:08→21:58)
[2020-04-09] MEDS: EUCERIN CREAM 120 GM JAR 1 APPLIC TOPICAL (08:09)
[2020-04-09] MEDS: ALBUTEROL SULFATE NEB 2.5 MG/0.5 ML INH 5 MG INHALATION ×3 (08:22→20:21)
[2020-04-09] MEDS: IPRATROPIUM BR 0.02% INH SOLN 0.5 MG/2.5 ML VIAL INHALATION ×3 (08:22→20:20)
[2020-04-09] MEDS: DORNASE ALFA INH SOLN 1 MG/ML 2.5 ML AMP 2.5 MG INHALATION ×2 (08:22→20:21)
--- NOTE | 2020-04-09 15:47 | PM.IMPN ---
Progress Note: A&P Assessment and Plan (1) Fracture of neck of humerus: Qualifiers: Encounter type: initial encounter Fracture type: closed Laterality: right Qualified Code(s): S42.211A - Unspecified displaced fracture of surgical neck of right humerus, initial encounter for closed fracture Code(s): S42.213A - Unspecified displaced fracture of surgical neck of unspecified humerus, initial encounter for closed fracture Status: Acute Assessment and Plan: Patient's arm is in an immobilizer. Dr. Yoon has The patient will need placement for rehabilitation at discharge. (2) Vertigo: Code(s): R42 - Dizziness and giddiness Status: Acute Assessment and Plan: Given the patient's smoking history and history of peripheral vascular disease she has certainly had increased risk of stroke. But vertigo is positional and CT of the brain, carotid Doppler and CT of C-spine all unremarkables. meclizine scheduled for vertigo. The patient reports frequent dry heaves due to vertigo related nausea. holding the patient's home Lasix and actually initiated IV fluids as the patient appears clinically dry on admission will discontinue IV fluids today. (3) Chronic obstructive pulmonary disease with hypoxia: Code(s): J44.9 - Chronic obstructive pulmonary disease, unspecified; R09.02 - Hypoxemia Status: Acute Assessment and Plan: l resumed the patient's home Symbicort and p.r.n. albuterol and Atrovent nebs. The patient would benefit from smoking cessation. Nicotine patch will be provided if desired. (4) Fall as cause of accidental injury in home as place of occurrence: Qualifiers: Encounter type: initial encounter Qualified Code(s): W19.XXXA - Unspecified fall, initial encounter; Y92.009 - Unspecified place in unspecified non-institutional (private) residence as the place of occurrence of the external cause Code(s): W19.XXXA - Unspecified fall, initial encounter; Y92.009 - Unspecified place in unspecified non-institutional (private) residence as the place of occurrence of the external cause Status: Acute Assessment and Plan: Patient fell and was down for a little less than 24 hours before neighbors found her. CK was mildly elevated in the ER at 324 a.m. and decreased to 194 this a.m.. And normal 6-4 placed the patient on fall precautions. Patient will need placement given her acute humeral fracture and her difficulties with mobility. Subjective Date/time seen: 04/09/20 15:47 Interval history: Date of visit 04/09. 79-year-old hypertensive obese white female and fallen at home and unable to get up till neighbor found her. Brought to the emergency room found to have fractured humerus with mildly elevated CPK and admitted for treatment of same. She has been having positional vertigo at home. While sitting semi erect in bed she is comfortable without any significant pain and no dizziness Exam Narrative: Exam Narrative: Blood pressure 120/50 pulse 62 afebrile Pupils equal reactive to light sclera anicteric Lungs clear CV regular rate rhythm no murmurs Abdomen soft nontender no masses Extremities right arm in a sling radial pulses 2+ symmetrical and moves fingers well Neuro alert cranial nerves are intact Objective Data Vital Signs Vital Signs: Vital Signs - 24 hr 04/08/20 16:00 04/08/20 19:30 04/08/20 20:00 Temperature Pulse Rate 69 90 Respiratory Rate Blood Pressure Pulse Oximetry 92 04/08/20 21:40 04/08/20 21:52 04/08/20 22:00 Temperature 36.7 C Pulse Rate 64 65 90 Respiratory Rate 22 H 20 22 H Blood Pressure 139/45 L Pulse Oximetry 93 90 04/09/20 00:00 04/09/20 04:00 04/09/20 06:00 Temperature 36.8 C Pulse Rate 61 79 72 Respiratory Rate 22 H Blood Pressure 119/40 L Pulse Oximetry 90 04/09/20 08:00 04/09/20 08:20 04/09/20 08:30 Temperature Pulse Rate 76 64 65 Respiratory Rate 20
[2020-04-09] MEDS: FUROSEMIDE INJ 40 MG/4 ML VIAL 20 MG IV PUSH (15:54)
[2020-04-10] VITALS (7 sets, daily range): BP systolic 118–146; BP diastolic 59–62; PULSE 58–102; RESP 20; TEMP 36.6; O2SAT 91–93
[2020-04-10] MEDS: LEVOTHYROXINE SODIUM 150 MCG TABLET PO (07:02)
[2020-04-10] MEDS: POTASSIUM CHLORIDE 10 MEQ TABLET.ER PO (09:36)
[2020-04-10] MEDS: MECLIZINE HCL 12.5 MG TABLET PO ×3 (09:36→16:23)
[2020-04-10] MEDS: PANTOPRAZOLE 40 MG TABLET PO (09:36)
[2020-04-10] MEDS: SERTRALINE HCL 25 MG TABLET PO (09:36)
[2020-04-10] MEDS: methocarbamoL 500 MG TABLET PO ×3 (09:36→16:23)
[2020-04-10] MEDS: FUROSEMIDE 40 MG TABLET PO (09:36)
[2020-04-10] MEDS: LOSARTAN POTASSIUM 50 MG TABLET PO (09:36)
[2020-04-10] MEDS: EUCERIN CREAM 120 GM JAR 1 APPLIC TOPICAL (09:41)
--- NOTE | 2020-04-10 10:05 | PCPTNOTE ---
Attempted Therapy session, pt declined therapy at this time due to having an upset stomach and requested therapy to come back later. Will attempt again.
--- NOTE | 2020-04-10 11:22 | PCNFU ---
Nutrition Follow-Up Complete: Inadequate Oral Intake as related to pain from fall as evidenced by poor po intake. Goal: Adequate Intake of at least 50% of meals. Progressing towards goal. We will continue current goal. Pt current nutrition is Heart Healthy. Nutrition recommendation:Agree Last recorded weight is 105.5 kg. Bowel Motility:+BM reported / Labs Reviewed:NO new labs to report. Meds Noted:Lasix,Protonix,Mucinex Additional Notes: Patient having nausea and stomach pain this morning. Refusing breakfast today. Overall intakes have been 20-80% of meals. Patient has diet supplements of Ensure compact BID providing additional 220 kcals and 9 gms protein. PO intake encouraged. Monitoring: RD will monitor every 5 days.
[2020-04-10 12:55] LABS: SARS-CoV-2 RNA PCR Negative
--- NOTE | 2020-04-10 18:18 | PM.DS ---
DS: Admitting Diagnosis Admitting Diagnosis Admitting Diagnosis: Unspecified displaced fracture of surgical neck of right humerus, initial encounter for closed fracture DS: Discharge Diagnosis Discharge Diagnosis (1) Fracture of neck of humerus: Qualifiers: Encounter type: initial encounter Fracture type: closed Laterality: right Qualified Code(s): S42.211A - Unspecified displaced fracture of surgical neck of right humerus, initial encounter for closed fracture Code(s): S42.213A - Unspecified displaced fracture of surgical neck of unspecified humerus, initial encounter for closed fracture Status: Acute Assessment and Plan: Patient's arm is in an immobilizer. Dr. Yoon saw from Ortho and suggested conservative treatment with no surgical intervention The patient transferred to [facility] for rehab. (2) Vertigo: Code(s): R42 - Dizziness and giddiness Status: Acute Assessment and Plan: Given the patient's smoking history and history of peripheral vascular disease she has certainly had increased risk of stroke. But vertigo is positional and CT of the brain, carotid Doppler and CT of C-spine all unremarkables. meclizine scheduled for vertigo. The patient reports frequent dry heaves due to vertigo related nausea at home. held the patient's home Lasix and actually initiated IV fluids as the patient appeared clinically dry on admission. Resumed Lasix on discharge (3) Chronic obstructive pulmonary disease with hypoxia: Code(s): J44.9 - Chronic obstructive pulmonary disease, unspecified; R09.02 - Hypoxemia Status: Acute Assessment and Plan: l resumed the patient's home Symbicort and p.r.n. albuterol and Atrovent nebs. The patient would benefit from smoking cessation. Nicotine patch will be provided if desired. Continue O2 supplement on discharge also (4) Fall as cause of accidental injury in home as place of occurrence: Qualifiers: Encounter type: initial encounter Qualified Code(s): W19.XXXA - Unspecified fall, initial encounter; Y92.009 - Unspecified place in unspecified non-institutional (private) residence as the place of occurrence of the external cause Code(s): W19.XXXA - Unspecified fall, initial encounter; Y92.009 - Unspecified place in unspecified non-institutional (private) residence as the place of occurrence of the external cause Status: Acute Assessment and Plan: Patient fell and was down for a little less than 24 hours before neighbors found her. CK was mildly elevated in the ER at 324 a.m. and decreased to 94 /3 placed the patient on fall precautions. Again transferred for rehab to [facility] DS: Summary Hospital Course Hospital Course: 79-year-old white female with COPD hypertension admitted with vertiginous episodes of fall and fracture of right humerus. Seen by OT PT and orthopedic surgery. Conservative treatment was deemed proper with no surgical intervention. She will continue arm in a sling and transferred to [facility] for rehab. Time Spent with Patient Time attestation: Total time spent providing and/or coordinating discharge services: 35 minutes Exam Narrative: Exam Narrative: Condition on discharge Blood pressure 118/60 pulse is 78 saturating 93% on 2 L nasal cannula Lungs clear prolonged expiratory phase no wheezing or rales CV regular rate rhythm no murmurs Abdomen soft nontender obese was umbilical hernia Extremities without edema good distal pulses right orbit and sling from humeral fracture Neuro alert still complains of intermittent vertiginous symptoms with change of position DS: Data Data Completed and Pending Labs on day of discharge: Labs from last 24 hours 04/09/20 12:19 SARS-CoV-2 RNA (RT-PCR) Negative Discharge Plan Discharge Attending physician on discharge: Timmy Hdez Consulting providers: [facility]
== END 2020-04-10 16:52 ==
LOC: ANHED 18:38 → ANH3MEDSUR 18:53
PROVIDERS: Internal Medicine; Physician Assistant; Admitting Provider Internal Medicine; Emergency Provider Emergency Medicine; PCP Emergency Medicine; Visit Provider Internal Medicine
DX: S42.211A Unspecified displaced fracture of surgical neck of right humerus, initial encounter for closed fracture (principal); S42.251A Displaced fracture of greater tuberosity of right humerus, initial encounter for closed fracture; W18.39XA Other fall on same level, initial encounter; R42 Dizziness and giddiness; E03.9 Hypothyroidism, unspecified; J44.9 Chronic obstructive pulmonary disease, unspecified; R09.02 Hypoxemia; M06.9 Rheumatoid arthritis, unspecified; F17.210 Nicotine dependence, cigarettes, uncomplicated; Z20.828 Contact with and (suspected) exposure to other viral communicable diseases; I73.9 Peripheral vascular disease, unspecified; E66.01 Morbid (severe) obesity due to excess calories; Z68.38 Body mass index [BMI] 38.0-38.9, adult; Z79.899 Other long term (current) drug therapy
CPT/HCPCS: 36415; 51701; 70450; 71045; 72125; 73030; 80048; 80053; 81001; 82306; 82550; 85025; 85027; 87635; 93880; 94640; 96361; 96374; 96375; 96376; 97110; 97116; 97162; 97166; 97530; 97535; 99285; A9270; C9803; G0378; J1940; J2405; J7030; U0003

== ENCOUNTER 2020-05-12 18:41 | Emergency (ER) | payer MEDICARE, MEDICAID, SELFPAY ==
[2020-05-12 19:12] VITALS: BP 137/72; PULSE 76; RESP 22; TEMP 36.2; O2SAT 95
[2020-05-12 19:29] LABS: Basophils Absolute Auto 0.1 K/mm3 (0.0-0.1); Basophils Percent Auto 0.8 % (0.2-1.2); Eosinophils Absolute Auto 0.2 K/mm3 (0-0.3); Eosinophils Percent Auto 1.3 % (0-4.4); Hematocrit 44.8 % (37.0-47.0); Hemoglobin 14.8 g/dL (12.0-15.0); Immature Granulocyte Absolute 0.03 K/mm3 (0.00-0.031); Immature Granulocyte Percent A 0.3 % (0-0.5); Lymphocytes Percent Auto 26.1 % (18.3-44.2); Mean Corpuscular Hemoglobin 29.8 pg (26-34); Mean Corpuscular Volume 90.1 fl (80-100); Mean Platelet Volume 11.3 fl (7.4-10.4); Monocytes Absolute Auto 0.5 K/mm3 (0.1-0.6); Monocytes Percent Auto 4.6 % (2.6-8.5); Neutrophils Absolute Auto 7.7 K/mm3 (1.3-6.7); Neutrophils Percent Auto 66.9 % (45.5-73.1); Platelet Count Result 332 k/mm3 (150-375); Red Blood Count 4.97 M/mm3 (4.2-5.4); Red Cell Distribution Width 16.9 % (11.5-14.5); White Blood Count 11.5 K/mm3 (4.5-10.0)
[2020-05-12 19:37] LABS: Alanine Aminotransferase 16 U/L (4-35); Alkaline Phosphatase 123 U/L (38-126); Aspartate Amino Transferase 25 U/L (14-36); Bilirubin,Total 0.4 mg/dL (0.2-1.3); Blood Urea Nitrogen 18 mg/dL (7-17); Carbon Dioxide 30 mmol/L (22-30); Chloride 102 mmol/L (98-107); Estimated CRCL calculation 56 ml/min; Estimated Glomerular Filt Rate > 60; Glucose 108 mg/dL (65-105); Lipase 56 U/L (23-300); Potassium 3.2 mmol/L (3.4-5.0); Sodium 139 mmol/L (137-145)
--- NOTE | 2020-05-12 20:20 | ED.NAVMDI ---
HPI - Nausea/Vomiting/Diarrhea General Chief complaint: Nausea/Vomiting/Diarrhea Stated complaint: diarrhea Time Seen by Provider: 05/12/20 20:08 History of Present Illness HPI Narrative: Patient is a 79-year-old female who presents the ER with diarrhea. Over the last couple of days she has had watery diarrhea. Yesterday it was 1 loose stool and today it was 2-3. Patient has no abdominal pain or cramping. No fevers or chills or dizziness. She is currently on doxycycline for boil that was prescribed on 05/06/2020. She has been taking her prescriptions as she is supposed to. Patient has right upper extremity immobilized in a sling due to a humerus fracture. She has follow-up on 05/18/2020 with her doctor for further evaluation and treatment. Patient used to be doing rehab at [facility] but is currently living at home. She has a friend she stays with her during the day and leaves at night. Because patient is started to have diarrhea she would like to stay in the hospital. Related Data Home Medications Medication Instructions Recorded Confirmed potassium chloride 10 mEq 10 meq PO DAILY 09/15/19 04/06/20 tablet,extended release fluticasone propionate 50 1 - 2 spray NASAL DAILY PRN ml 01/10/20 04/06/20 mcg/actuation nasal spray,suspension ipratropium bromide 0.02 % See Rx Instructions .ROUTE 01/10/20 04/06/20 solution for inhalation .COMPLEX PRN levothyroxine 150 mcg tablet 150 mcg PO DAILY 01/10/20 04/06/20 pantoprazole 40 mg tablet,delayed 40 mg PO DAILY tablet 01/10/20 04/06/20 release albuterol sulfate See Rx Instructions .ROUTE 02/23/20 04/06/20 .COMPLEX PRN budesonide-formoterol [Symbicort] 2 puff INHALATION BID 02/23/20 04/06/20 furosemide 20 mg PO QPM 04/06/20 04/06/20 furosemide 40 mg PO DAILY 04/06/20 04/06/20 silver sulfadiazine [SSD] 1 applic TOPICAL BID PRN 04/06/20 04/06/20 Allergies Allergy/AdvReac Type Severity Reaction Status Date / Time QIANA Inhibitors Allergy Mild Unknown Verified 04/06/20 15:34 Penicillins Allergy Unknown Hives Verified 04/06/20 15:34 Review of Systems Review of Systems: All systems reviewed & are unremarkable except as noted in HPI and below Constitutional: Constitutional: Denies chills, Denies fever(s) and Reports weakness ENT: Denies nasal congestion and Denies sore throat Cardiovascular: Cardiovascular: Denies chest pain and Denies radiating jaw, neck or arm pain Respiratory: Respiratory: Denies cough, Denies dyspnea and Denies wheezing Gastrointestinal: Gastrointestinal: Reports abdominal pain, Reports diarrhea, Denies nausea and Denies vomiting Genitourinary: Genitourinary: Denies nocturia and Denies dysuria [facility] Social History Social History Social History: Primary care physician: Dr. Henry Hinojosa Code status: DNI Medical POA: Fatemeh Pittman Smoking packs per day: 1.5 Smoking cigarettes per day: 30.0 Years smoked: 61 Smoking pack-years: 91.50 Smoking status: Current every day smoker Tobacco type: cigarettes Second hand tobacco smoke exposure: No Alcohol intake: never Substance use: never Additional living arrangements comments: The patient has been since 2013. She lives in a trailer park. She still drives. She has 1 daughter. 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 Gender identity (if verbalized by the patient): Female Spiritual care concerns: No Exam Narrative: Exam Narrative: GENERAL: Well-appearing, well-nourished, and in no acute distress. HEAD: Normocephalic, atraumatic. ENT: Mucous membranes moist. CHEST: Clear to auscultation. No respiratory distress. HEART: Regular rate and rhythm. Normal peripheral pulses. ABDOMEN: Soft, nontender, nondistended, normal active bowel sounds. EXTREMITIES: Right upper extremity immobilized in a sling, normal capillary refill and range of motion of fingers. 1+ edema in lower
[2020-05-12 20:32] VITALS: BP 137/72; BP 144/77; BP 172/80; PULSE 63; PULSE 76; PULSE 81
[2020-05-12 20:45] LABS: Add Urine Microscopic? NO; Appearance Urine Clear (Clear); Bilirubin Urine Negative (Negative); Blood Urine Negative (Negative); Color Urine Yellow (Yellow); Glucose Urine UA Negative (Negative); Ketones Urine Negative (Negative); Leukocyte Esterase Ur Negative LEU/UL (Negative); Nitrate Urine Negative (Negative); Protein Urine Negative (Negative); Specific Grav Ur 1.019 (1.001-1.035); Urobilinogen Urine Negative mg/dL (<2.0)
[2020-05-12] MEDS: ACETAMINOPHEN 500 MG TABLET 1000 MG PO (21:45)
[2020-05-12 22:15] VITALS: TEMP 36.2
[2020-05-12 23:02] VITALS: BP 145/77; PULSE 70; RESP 20; O2SAT 99
--- NOTE | 2020-05-12 23:23 | PC.NURSE ---
Called pt's friend Karuna to see if she could pick pt. up. 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 Karuna states pt does not have the money for that and she will figure something out. [phone]
[2020-05-13] VITALS: BP 142/75; PULSE 65; RESP 15; O2SAT 92
== END 2020-05-13 | disposition home or self-care (01) ==
PROVIDERS: Emergency Provider Emergency Medicine; PCP Emergency Medicine
DX: R19.7 Diarrhea, unspecified (principal); J44.9 Chronic obstructive pulmonary disease, unspecified; E03.9 Hypothyroidism, unspecified; F32.9 Major depressive disorder, single episode, unspecified; F17.210 Nicotine dependence, cigarettes, uncomplicated; M06.9 Rheumatoid arthritis, unspecified; Z98.42 Cataract extraction status, left eye; Z87.442 Personal history of urinary calculi; Z98.41 Cataract extraction status, right eye; Z96.1 Presence of intraocular lens
CPT/HCPCS: 36415; 51701; 80053; 81003; 83690; 85025; 99283; A9270

== ENCOUNTER 2020-05-14 15:22 | Emergency (ER) | payer MEDICARE, MEDICAID, SELFPAY ==
[2020-05-14 15:36] VITALS: BP 149/67; PULSE 71; RESP 18; TEMP 36.5; O2SAT 93
[2020-05-14 18:02] LABS: Add Urine Microscopic? NO; Appearance Urine Clear (Clear); Bilirubin Urine Negative (Negative); Blood Urine Negative (Negative); Color Urine Yellow (Yellow); Glucose Urine UA Negative (Negative); Ketones Urine Negative (Negative); Leukocyte Esterase Ur Negative LEU/UL (Negative); Nitrate Urine Negative (Negative); Protein Urine Negative (Negative); Specific Grav Ur 1.013 (1.001-1.035); Urobilinogen Urine Negative mg/dL (<2.0)
--- NOTE | 2020-05-14 18:09 | ED.GENADULT ---
HPI - General Adult General Chief complaint: Unspecified Stated complaint: weakness Time Seen by Provider: 05/14/20 17:32 History of Present Illness HPI narrative: Patient is a 79-year-old female who presents the ER with the desire to be placed at a rehabilitation facility. She was seen in the ER couple days ago for diarrhea related to antibiotic therapy. She reports the diarrhea has resolved itself. She does note some positional dizziness that lasts for only a couple seconds. It has not affected her balance. No fevers or chills or sweats. No new urinary frequency or urgency. No dysuria. She has no complaints other than that she would like to be placed. Care coordination contacted. Related Data Home Medications Medication Instructions Recorded Confirmed potassium chloride 10 mEq 10 meq PO DAILY 09/15/19 04/06/20 tablet,extended release fluticasone propionate 50 1 - 2 spray NASAL DAILY PRN ml 01/10/20 04/06/20 mcg/actuation nasal spray,suspension ipratropium bromide 0.02 % See Rx Instructions .ROUTE 01/10/20 04/06/20 solution for inhalation .COMPLEX PRN levothyroxine 150 mcg tablet 150 mcg PO DAILY 01/10/20 04/06/20 pantoprazole 40 mg tablet,delayed 40 mg PO DAILY tablet 01/10/20 04/06/20 release albuterol sulfate See Rx Instructions .ROUTE 02/23/20 04/06/20 .COMPLEX PRN budesonide-formoterol [Symbicort] 2 puff INHALATION BID 02/23/20 04/06/20 furosemide 20 mg PO QPM 04/06/20 04/06/20 furosemide 40 mg PO DAILY 04/06/20 04/06/20 silver sulfadiazine [SSD] 1 applic TOPICAL BID PRN 04/06/20 04/06/20 Allergies Allergy/AdvReac Type Severity Reaction Status Date / Time QIANA Inhibitors Allergy Mild Unknown Verified 04/06/20 15:34 Penicillins Allergy Unknown Hives Verified 04/06/20 15:34 Review of Systems Review of Systems: All systems reviewed & are unremarkable except as noted in HPI and below Constitutional: Constitutional: Denies chills, Denies fever(s) and Reports weakness (chronic) ENT: Reports dizziness, Denies nasal congestion and Denies sore throat Respiratory: Respiratory: Denies cough, Denies dyspnea and Denies wheezing Gastrointestinal: Gastrointestinal: Denies abdominal pain, Denies nausea and Denies vomiting PMFSH Social History Social History Social History: Primary care physician: Dr. Henry Hinojosa Code status: DNI Medical POA: Fatemeh Pittman Smoking packs per day: 1.5 Smoking cigarettes per day: 30.0 Years smoked: 61 Smoking pack-years: 91.50 Smoking status: Current every day smoker Tobacco type: cigarettes Second hand tobacco smoke exposure: No Alcohol intake: never Substance use: never Additional living arrangements comments: The patient has been since 2013. [place]. She still drives. She has 1 daughter. 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 Gender identity (if verbalized by the patient): Female Spiritual care concerns: No Exam Narrative: Exam Narrative: GENERAL: Well-appearing, well-nourished, and in no acute distress. HEAD: Normocephalic, atraumatic. CHEST: Clear to auscultation. No respiratory distress. HEART: Regular rate and rhythm. Normal peripheral pulses. ABDOMEN: Soft, nontender, nondistended. EXTREMITIES: Normal range of motion. Right upper extremity immobilized in a sling. SKIN: Warm, dry, no rash. NEURO: Alert and oriented x3. PSYCH: Normal mood and affect. Course Course Emergency Course: Unremarkable evaluation. Discharge home. She has been seen by care coordination. Patient has no medical reason go to [facility] she is also very particular about where she would like to go. Her friend will be here shortly to pick her up. Vital Signs Vital signs: Vital Signs Temperature 97.7 F 05/14/20 15:36 Pulse Rate 71 05/14/20 15:36 Respiratory Rate 18 05/14/20 15:36 Blood Pressure 149/67 H 05/14/20 1
[2020-05-14 18:11] LABS: Basophils Absolute Auto 0.1 K/mm3 (0.0-0.1); Basophils Percent Auto 0.8 % (0.2-1.2); Eosinophils Absolute Auto 0.1 K/mm3 (0-0.3); Eosinophils Percent Auto 0.6 % (0-4.4); Hematocrit 43.6 % (37.0-47.0); Hemoglobin 14.3 g/dL (12.0-15.0); Immature Granulocyte Absolute 0.03 K/mm3 (0.00-0.031); Immature Granulocyte Percent A 0.3 % (0-0.5); Lymphocytes Absolute Auto 2.97 K/mm3 (0.9-3.2); Lymphocytes Percent Auto 27.4 % (18.3-44.2); Mean Corpuscular HGB Conc 32.8 g/dl (32-36); Mean Corpuscular Hemoglobin 29.9 pg (26-34); Mean Platelet Volume 11.5 fl (7.4-10.4); Monocytes Absolute Auto 0.6 K/mm3 (0.1-0.6); Monocytes Percent Auto 5.1 % (2.6-8.5); Neutrophils Absolute Auto 7.1 K/mm3 (1.3-6.7); Neutrophils Percent Auto 65.8 % (45.5-73.1); Platelet Count Result 303 k/mm3 (150-375); Red Blood Count 4.79 M/mm3 (4.2-5.4); White Blood Count 10.8 K/mm3 (4.5-10.0)
[2020-05-14 18:24] LABS: Alanine Aminotransferase 17 U/L (4-35); Alkaline Phosphatase 118 U/L (38-126); Aspartate Amino Transferase 26 U/L (14-36); Bilirubin,Total 0.7 mg/dL (0.2-1.3); Blood Urea Nitrogen 14 mg/dL (7-17); Calcium 9.3 mg/dL (8.4-10.2); Carbon Dioxide 31 mmol/L (22-30); Chloride 99 mmol/L (98-107); Estimated CRCL calculation 63 ml/min; Estimated Glomerular Filt Rate > 60; Glucose 106 mg/dL (65-105); Lipase 45 U/L (23-300); Potassium 3.2 mmol/L (3.4-5.0); Sodium 139 mmol/L (137-145)
[2020-05-14] MEDS: MECLIZINE HCL 12.5 MG TABLET PO (18:48)
[2020-05-14 18:56] VITALS: BP 131/118; PULSE 61; RESP 18
--- NOTE | 2020-05-14 19:51 | PC.NURSE ---
Pt stating she can not go home. Friend is on speaker phone. Both are angry stating she cannot go home. I spoke with EDP and he said she is being d/c. I told friend and she became more angry.
[2020-05-14 20:29] VITALS: BP 144/67; PULSE 61; RESP 20; O2SAT 92
== END 2020-05-14 20:30 | disposition home or self-care (01) ==
PROVIDERS: Emergency Provider Emergency Medicine; PCP Emergency Medicine
DX: R42 Dizziness and giddiness (principal); F17.210 Nicotine dependence, cigarettes, uncomplicated
CPT/HCPCS: 36415; 80053; 81003; 83690; 85025; 99283; A9270

== ENCOUNTER 2021-02-22 17:53 | Observation (INO) | payer MEDICARE, MEDICAID, SELFPAY ==
--- NOTE | ~2021-02-22 | XR_ITS ---
XR chest 2V 02/22/2021 19:30 Indication: COPD. Hypertension. Procedure: AP and lateral views of the chest Comparison: Comparison to multiple prior studies sequentially, with oldest reviewed study dated 10/06. Findings: Bibasilar airspace disease, compatible with pneumonia. Borderline heart size. Small effusio ns. No acute osseous abnormality. There is a chronic fracture deformity of the right humeral neck wit h displacement. Impression: 1: Bibasilar airspace disease, compatible with pneumonia with small pleural effusions. Reviewed, dictated and finalized at location A. Impression: 1: Bibasilar airspace disease, compatible with pneumonia with small pleural eff usions.
[2021-02-22 18:47] VITALS: BP 154/84; PULSE 70; RESP 16; TEMP 36.3; O2SAT 92
--- NOTE | 2021-02-22 18:56 | ECG_ITS ---
Measurements Intervals [place] Rate: 61 P: 66 ND: 156 QRS: -42 QRSD: 148 T: 28 QT: 468 QTc: 475 Interpretive Statements SINUS RHYTHM LEFT AXIS DEVIATION RIGHT BUNDLE BRANCH BLOCK BASELINE WANDER- I, II, III, AVR, AVF, V1-V3 ABNORMAL ECG Electronically Signed On 02-23-2021 7:15:52 CDT by Alphonso Nicole D.O.
[2021-02-22 19:23] LABS: Basophils Absolute Auto 0.1 K/mm3 (0.0-0.1); Basophils Percent Auto 0.9 % (0.2-1.2); Eosinophils Absolute Auto 0.1 K/mm3 (0-0.3); Eosinophils Percent Auto 1.3 % (0-4.4); Hematocrit 46.2 % (37.0-47.0); Hemoglobin 14.8 g/dL (12.0-15.0); Immature Granulocyte Absolute 0.03 K/mm3 (0.00-0.031); Immature Granulocyte Percent A 0.3 % (0-0.5); Lymphocytes Absolute Auto 2.76 K/mm3 (0.9-3.2); Lymphocytes Percent Auto 30.6 % (18.3-44.2); Mean Corpuscular Hemoglobin 29.6 pg (26-34); Mean Corpuscular Volume 92.4 fl (80-100); Monocytes Absolute Auto 0.5 K/mm3 (0.1-0.6); Monocytes Percent Auto 5.3 % (2.6-8.5); Neutrophils Absolute Auto 5.5 K/mm3 (1.3-6.7); Neutrophils Percent Auto 61.6 % (45.5-73.1); Platelet Count Result 339 k/mm3 (150-375); Red Cell Distribution Width 15.6 % (11.5-14.5)
[2021-02-22 19:33] LABS: Anion Gap 4 mmol/L (8-16); Blood Urea Nitrogen 10 mg/dL (7-17); Calcium 9.2 mg/dL (8.4-10.2); Carbon Dioxide 39 mmol/L (22-30); Chloride 102 mmol/L (98-107); Estimated CRCL calculation 61 ml/min; Estimated Glomerular Filt Rate > 60; Glucose 113 mg/dL (65-105); Potassium 3.6 mmol/L (3.4-5.0); Sodium 145 mmol/L (137-145)
[2021-02-22 21:50] VITALS: BP 179/102; PULSE 66; RESP 18; TEMP 36.7; O2SAT 99
--- NOTE | 2021-02-22 21:52 | ED.GENADULT ---
HPI - General Adult General Chief complaint: Recheck/Abnormal Lab/Rx Stated complaint: high blood pressure/leg swelling Time Seen by Provider: 02/22/21 21:42 Source: patient History of Present Illness HPI narrative: Patient is a 80 y/o female complaining of high blood pressure today. She states that a nurse from her insurance company was checking her BP at home. Her BP was 175/75 and she was told to come to ED for evaluation. She has no chest pain, SOB, headache or dizziness. She states that she feels fine. She states that she was on Cozaar for BP in the past but was taken off. Related Data Home Medications Medication Instructions Recorded Confirmed silver sulfadiazine [SSD] 1 applic TOPICAL BID PRN 04/06/20 02/23/21 methocarbamol 500 mg PO HS 02/23/21 02/23/21 Allergies Allergy/AdvReac Type Severity Reaction Status Date / Time Penicillins Allergy Severe Hives Verified 02/23/21 03:44 QIANA Inhibitors Allergy Mild Unknown Verified 02/23/21 03:44 Review of Systems Constitutional: Constitutional: Denies chills, Denies fever(s), Denies headache(s) and Denies weakness Eyes: Eyes: Denies blurry vision ENT: Denies headache(s) and Denies neck pain Cardiovascular: Cardiovascular: Denies chest pain and Denies dyspnea Respiratory: Respiratory: Denies cough and Denies dyspnea Gastrointestinal: Gastrointestinal: Denies abdominal pain, Denies diarrhea, Denies nausea and Denies vomiting Genitourinary: Genitourinary: Denies hematuria and Denies dysuria Musculoskeletal: Musculoskeletal: Denies back pain and Denies neck pain Neurologic: Denies headache(s) and Denies weakness [facility] Past Medical History Medical History (Updated 02/23/21 @ 13:34 by Diamond Grossman PA-C) Chronic venous stasis dermatitis COPD (chronic obstructive pulmonary disease) Depression Hyperglycemia Hypothyroidism (acquired) Kidney stones Right kidney stone December 2018 Rheumatoid arthritis Surgical History Surgical History History of section X1 History of cholecystectomy History of evacuation of hematoma Of lateral thigh 2013 Status post cataract extraction of both eyes with insertion of intraocular lens 2003 Family History Family History Sibling Patient's sister is in good health Mother Diabetes mellitus, Onset Age: 41 Father Heart attack Cardiovascular disease Social History Social History (Updated 02/23/21 @ 08:48 by Macy Reed DO) Social History: Primary care physician: Dr. Henry Hinojosa Code status: DNR/DNI Medical POA: Fatemeh Pittman (daughter) Smoking packs per day: 1 Smoking cigarettes per day: 20.0 Years smoked: 70 Smoking pack-years: 70.00 Smoking status: Current every day smoker Tobacco type: cigarettes Second hand tobacco smoke exposure: No Alcohol intake: never Substance use: never Additional living arrangements comments: The patient has been since 2013. She lives in a trailer park. She still drives. She has 1 daughter. 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 Gender identity (if verbalized by the patient): Female Spiritual care concerns: No Exam Const: General: no acute distress and well developed Orientation/consciousness: oriented to person, oriented to place, oriented to time and patient oriented x3 HENMT: Head: normocephalic Ears: external ears normal General nose exam: Normal external nose present Eyes: General: appearance normal, both eyes and all related structures Conjunctivae: conjunctivae normal Neck: Neck: normal visual inspection and full ROM Chest: Chest palpation & inspection: normal inspection of the chest and no tenderness Resp: Effort & Inspection: normal respiratory effort Auscultation: clear to auscultation bilaterally Cardio: Rate: regular rate Rhy
[2021-02-22] MEDS: LOSARTAN POTASSIUM 50 MG TABLET PO (22:19)
[2021-02-22 23:07] VITALS: BP 166/75; PULSE 67; RESP 18
[2021-02-22 23:55] LABS: Alveolar/Arterial O2 Gradient 41.1 mmHg; Base Excess ABG 6.7 mEq/l (+/-2.0); Fractional Inspired Oxygen 21 %; Oxygen Content ABG 16.7 %vol (16.0-22.0); Oxygen Saturation ABG 87.3 % (95.0-100.0); Oxyhemoglobin 84.8 % THb (90.0-100.0); PCO2 ABG 47.9 mmHg (35.0-45.0); PO2 ABG 51.3 mmHg (80.0-100.0); PO2 FiO2 Ratio Arterial Blood 2.44 %; pH ABG 7.442 (7.350-7.450)
[2021-02-22 23:56] LABS: Device ROOM AIR; Modified Allen's Test Pass; Site Drawn RIGHT BRACHIAL
[2021-02-22] MEDS: hydroCHLOROthiazide 12.5 MG CAPSULE PO (23:57)
[2021-02-22 23:59] VITALS: BP 166/69; PULSE 62; RESP 19; O2SAT 89
[2021-02-23] VITALS (20 sets, daily range): BP systolic 137–175; BP diastolic 52–79; PULSE 57–79; RESP 16–25; TEMP 36.2–36.7; O2SAT 86–96; BMI 38.0
--- NOTE | 2021-02-23 00:16 | PC.NURSE ---
Patient 88% on room air. Patient placed on 1L via NC. O2 currently 93%.
[2021-02-23 00:33] LABS: NT Pro B Type Natriuretic Pept 823 PG/ML (5-100)
--- NOTE | 2021-02-23 01:02 | PC.NURSE ---
per EDP emory pt on 1 L oxygen via nasal cannula.
--- NOTE | 2021-02-23 02:57 | PC.NURSE ---
This patient, Arielle Pittman, was admitted to [facility] Surg Room 313-01 @02:58. Patient/family oriented to hospital policies and general routines including ID bracelet, bed and alarms, visiting hours, pain management, procedures, bathroom and other care routines, personal items, smoking policy, room service/diet, and visiting hours. Information on how to activate the Rapid Response Team has been discussed. Patient/Family are encouraged to report perceived risks to care and to ask questions if they do not understand what they are told or what they should do.
--- NOTE | 2021-02-23 06:25 | PM.IMHP ---
H&P: HPI History of Present Illness Date/Time: 02/23/21 06:25 Chief Complaint: Elevated blood pressure Narrative: 80-year-old female with past medical history of chronic tobacco use, hypertension and COPD who presented to the ER after a nurse from her insurance company came to do her routine health evaluation and found the patient's blood pressure to be elevated in the 170 systolic. They called EMS to bring the patient into the for evaluation of her high blood pressure. The patient reports that her blood pressure when EMS arrived to her house was in the 190 systolic. The time she arrived to the ER her blood pressure was 154/84. The patient reports that her blood pressure medicines were discontinued several months ago. On review of the patient's external medication history it looks like her losartan was last refilled in May. The patient is noted to be wheezing in the ER and did have 1 oxygen saturation reading of 89%. She reports that her sats have been that low in the past but if she takes a deep breath her sats usually come back up. She still smokes 0.5 packs of cigarettes per day. She is not really interested in quitting smoking. She denies any increased shortness of breath. She has not noticed any increased wheezing. She does have a chronic smoker's cough that is unchanged from baseline. She is chronically chilled but denies any fevers. She has not had any known exposures to COVID-19. She lives at home with a friend. They get groceries delivered and they have not left the house and months. The patient had been admitted to the hospital in April and was discharged to a [facility] facility. At that time she did require some supplemental oxygen. She reports that she was not discharged on supplemental oxygen. Review of Systems Review of Systems: Narrative: 12 systems were reviewed with pertinent positives and negatives per HPI. Except as documented in the HPI, all other systems were reviewed and are negative. [facility] Past Medical History Medical History (Updated 02/23/21 @ 06:29 by Macy Reed DO) Chronic venous stasis dermatitis COPD (chronic obstructive pulmonary disease) Depression Hyperglycemia Hypothyroidism (acquired) Kidney stones Right kidney stone December 2018 Rheumatoid arthritis Surgical History Surgical History History of section X1 History of cholecystectomy History of evacuation of hematoma Of lateral thigh 2013 Status post cataract extraction of both eyes with insertion of intraocular lens 2003 Family History Family History Sibling Patient's sister is in good health Mother Diabetes mellitus, Onset Age: 41 Father Heart attack Cardiovascular disease Social History Social History (Updated 02/23/21 @ 08:48 by Macy Reed DO) Social History: Primary care physician: Dr. Henry Hinojosa Code status: DNR/DNI Medical POA: Fatemeh Pittman (daughter) Smoking packs per day: 1 Smoking cigarettes per day: 20.0 Years smoked: 70 Smoking pack-years: 70.00 Smoking status: Current every day smoker Tobacco type: cigarettes Second hand tobacco smoke exposure: No Alcohol intake: never Substance use: never Additional living arrangements comments: The patient has been since 2013. She lives in a trailer park. She still drives. She has 1 daughter. 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 Gender identity (if verbalized by the patient): Female Spiritual care concerns: No Meds Home Medications and Allergies Home Medications Medication Instructions Recorded Confirmed Type losartan 50 mg tablet 50 mg PO DAILY #90 tablet 01/10/20 02/23/21 Rx silver sulfadiazine [SSD] 1 applic TOPICAL BID PRN 04/06/20 02/23/21 History levothyroxine 150 mcg tablet See Rx Instructions .ROUTE 11/18/20
[2021-02-23] MEDS: LEVOTHYROXINE SODIUM 150 MCG TABLET BY MOUTH (09:47)
[2021-02-23] MEDS: ENOXAPARIN 40 MG/0.4 ML SYRINGE SUB-Q (09:47)
[2021-02-23] MEDS: PANTOPRAZOLE 40 MG TABLET PO (09:47)
[2021-02-23] MEDS: LOSARTAN POTASSIUM 50 MG TABLET PO (09:48)
[2021-02-23] MEDS: FLUTICASONE/SALMETEROL 115-21 MCG INHALER 1 PUFF 2 PUFF INHALATION (10:38)
[2021-02-23] MEDS: ALBUTEROL SULFATE (*SP) AEROSOL 1 PUFF 4 PUFF INHALATION (10:38)
--- NOTE | 2021-02-23 11:59 | HOMEO2EVAL ---
Evaluation was performed at [facility] Home Oxygen Evaluation RC: Home Oxygen (O2) Evaluation Start: 02/23/21 08:38 Freq: ONCE Status: Active Protocol: RPE Activity Type Activity Date Activity User E-Sign Co-Sign Detail Recorded Client Recorded Date Recorded By Document 02/23/21 11:00 MARLENY [email or web address] 02/23/21 11:58 MARLENY Document 02/23/21 11:05 MARLENY [email or web address] 02/23/21 11:58 MARLENY Document 02/23/21 11:07 MARLENY [email or web address] 02/23/21 11:58 MARLENY Document 02/23/21 11:10 MARLENY [email or web address] 02/23/21 11:58 MARLENY Document 02/23/21 11:25 MARLENY [id number] 02/23/21 11:58 MARLENY 02/23/21 02/23/21 02/23/21 11:00 11:05 11:07 Home O2 Evaluation Test Phase Resting Exercise Exercise Oxygen Delivery Room Air Room Air Nasal Cannula Oxygen Flow Rate (L/min) 1 Pulse Oximetry (90-100 %) 89 L 86 L 87 L Home Oxygen Evaluation Comments Treatment Charges O2 Evaluation - Inpatient 02/23/21 02/23/21 11:10 11:25 Home O2 Evaluation Test Phase Exercise Resting Oxygen Delivery Nasal Cannula Room Air Oxygen Flow Rate (L/min) 2 Pulse Oximetry (90-100 %) 90 90 Home Oxygen Evaluation Comments Up to side of Pt requires 2 bed. Very poor liters with activity exertion tolerance Treatment Charges
--- NOTE | 2021-02-23 13:18 | PCRCNOTE ---
HOME O2 EVAL DONE, PT HAS BEEN SET UP WITH [facility], WILL DROP OFF TANK TO ROOM [facility] TRANSPORT HOME, ALL PAPERWORK AND ORDER HAS BEEN FAXED
--- NOTE | 2021-02-23 13:29 | PM.IMPN ---
Progress Note: A&P Assessment and Plan (1) Uncontrolled hypertension: Code(s): I10 - Essential (primary) hypertension Status: Chronic Assessment and Plan: Patient is unsure if her losartan was discontinued by a healthcare provider or if she just stopped taking it, last filled May 2020. Patient was being seen for a wellness visit by [employer] and her BP was 175 systolic. We restarted her losartan and her BP is improved, last 155/71. Monitor BP and adjust treatment as needed. (2) Tobacco dependence: Code(s): F17.200 - Nicotine dependence, unspecified, uncomplicated Status: Acute Assessment and Plan: Patient with COPD and continued tobacco use. Smoking cessation encouraged. She is not interested in quitting. (3) Chronic obstructive pulmonary disease with hypoxia: Code(s): J44.9 - Chronic obstructive pulmonary disease, unspecified; R09.02 - Hypoxemia Status: Acute Assessment and Plan: Patient required supplemental oxygen at discharge April 2020. She may have chronic respiratory failure related to COPD. She is in no respiratory distress. Home oxygen evaluation shows she needs 2L/min O2 with exertion. Given her poor activity tolerance, appreciate PT/OT evaluations. Continue home advair. (4) Hypothyroidism (acquired): Code(s): E03.9 - Hypothyroidism, unspecified Status: Chronic Assessment and Plan: Continue home levothyroxine. Subjective Date/time seen: 02/23/21 1030 Interval history: Ms. Pittman is an 80yo F admitted for elevated blood pressures. She reports a chronic productive cough that is at her baseline. She denies chest pain or lightheadedness. She admits to feeling winded with activity. She has COPD with ongoing tobacco use. She reports eating and drinking okay; denies nausea, vomiting or abdominal pain. Review of Systems Review of Systems: All systems reviewed & are unremarkable except as noted in HPI and below Exam Narrative: Exam Narrative: General: Female resting comfortably sitting up in bed in no acute distress. HEENT: Normocephalic, EOMI, oral mucosa moist. Cardiovascular: Rate and rhythm are regular. Respiratory: Slight expiratory wheeze cleared with a cough. Respirations even and non-labored. Tolerating 1L O2 nasal cannula during my encounter. Abdomen: Soft, non-tender, non-distended, bowel sounds present. Extremities: Peripheral pulses intact. Trace POLLY lower extremity edema without pain to palpation. Neuro: Awake and alert, answering questions appropriately. No focal neurological deficits. Speech is clear. Objective Data Vital Signs Vital Signs: Last Vital Signs Temp 97.6 F 02/23/21 12:00 Pulse 69 02/23/21 12:00 Resp 18 02/23/21 12:00 BP 155/71 H 02/23/21 12:00 Pulse Ox 92 02/23/21 12:00 Intake/Output Intake/Output: Intake & Output 02/20/21 02/21/21 02/22/21 02/23/21 23:59 23:59 23:59 23:59 Intake Total 870 Output Total 400 Balance 470 Meds/Results Medications: Active Medications Generic Name Dose Route Start Last Admin Trade Name Freq PRN Reason Stop Dose Admin Acetaminophen 650 mg 02/23/21 10:25 Acetaminophen 325 Mg Tablet PO Q4H PRN Pain or Fever Albuterol 4 puff 02/23/21 08:00 02/23/21 10:38 Albuterol Sulfate (*Sp) Aerosol 1 Puff INHALATION 4 puff Q6HRT SALMA Administration Enoxaparin Sodium 40 mg 02/23/21 09:00 02/23/21 09:47 Enoxaparin 40 Mg/0.4 Ml Syringe SUB-Q 40 mg DAILY SALMA Administration Levothyroxine Sodium 150 mcg 02/23/21 06:30 02/23/21 09:47 Levothyroxine Sodium 150 Mcg Tablet BY MOUTH 150 mcg DAILY@0630 SALMA Administration Losartan Potassium 50 mg 02/23/21 09:00 02/23/21 09:48 Losartan Potassium 50 Mg Tablet PO 50 mg DAILY
[2021-02-23 20:31] LABS: SARS-CoV-2 RNA PCR Negative
[2021-02-23] MEDS: methocarbamoL 500 MG TABLET PO (22:22)
[2021-02-24 05:34] VITALS: BP 138/72; PULSE 52; RESP 18; TEMP 36.6; O2SAT 96
[2021-02-24] MEDS: LEVOTHYROXINE SODIUM 150 MCG TABLET BY MOUTH (06:19)
[2021-02-24 06:33] LABS: Blood Urea Nitrogen 9 mg/dL (7-17); Calcium 8.6 mg/dL (8.4-10.2); Carbon Dioxide > 40 mmol/L (22-30); Chloride 100 mmol/L (98-107); Estimated CRCL calculation 54 ml/min; Estimated Glomerular Filt Rate > 60; Glucose 90 mg/dL (65-105); Magnesium 1.5 mg/dL (1.6-2.3); Potassium 3.2 mmol/L (3.4-5.0); Sodium 143 mmol/L (137-145)
[2021-02-24 08:27] VITALS: O2SAT 91
[2021-02-24] MEDS: LOSARTAN POTASSIUM 50 MG TABLET PO (08:46)
[2021-02-24] MEDS: ENOXAPARIN 40 MG/0.4 ML SYRINGE SUB-Q (08:46)
[2021-02-24] MEDS: PANTOPRAZOLE 40 MG TABLET PO (08:46)
[2021-02-24] MEDS: MAGNESIUM SULF 2 GM/WATER 50ML 2 GM/50 ML BAG IVPB (09:29)
[2021-02-24] MEDS: POTASSIUM CHLORIDE 20 MEQ TABLET 40 MEQ PO (09:34)
--- NOTE | 2021-02-24 13:26 | PM.DS ---
DS: Admitting Diagnosis Admitting Diagnosis Admitting Diagnosis: hypertension, hypoxia DS: Discharge Diagnosis Discharge Diagnosis (1) Uncontrolled hypertension: Code(s): I10 - Essential (primary) hypertension Status: Chronic Assessment and Plan: Date of Admission 02/23/21 Date of Discharge 02/24/21 Ms. Pittman is a pleasant 80yo F with history of hypertension, COPD, ongoing tobacco use, hypothyroidism presented to the ED for evaluation of elevated blood pressure. She reported that a nurse from her insurance company came to her home yesterday for a wellness visit and her blood pressure was 175 systolic so it was recommended that she came to the ER for evaluation. Patient noted that she used to take losartan but that she has not taken it for several months. She is unsure if her primary care provider discontinued this medication or if she just stopped taking it. Blood pressures as elevated as 179/102 on arrival. Her previously prescribed home dose of losartan was resumed and blood pressures improved nicely. She was evaluated by PT/OT due to observed low activity tolerance and was felt to be a good candidate to continue therapy with home health services which were arranged prior to discharge. It was noted that she was hospitalized last year and discharged to SNF with supplemental oxygen. Since she was mildly hypoxic here requiring oxygen, home oxygen evaluation was obtained and showed that she qualified for 2 L of oxygen with activity, none at rest. Is suspected she has chronic respiratory failure with hypoxia and hypercapnia secondary to COPD. She is hesitant because she does not feel that she needs oxygen at home. She is concerned because she continues to smoke and has other members of her family in the home that smoke. She is instructed to use caution and not have oxygen tanks near any open flames. She was educated on smoking cessation and is not interested in quitting smoking at this time. She is eager for discharge and hemodynamically stable to do so on 02/24/2021 with instructions to follow-up with her primary care provider in 1 week. Patient is unsure if her losartan was discontinued by a healthcare provider or if she just stopped taking it, last filled May 2020. Patient was being seen for a wellness visit by [employer] and her BP was 175 systolic. We restarted her losartan and her BP is improved, 138/72 this morning. Follow-up with PCP. (2) Tobacco dependence: Code(s): F17.200 - Nicotine dependence, unspecified, uncomplicated Status: Acute Assessment and Plan: Patient with COPD and continued tobacco use. Smoking cessation encouraged. She is not interested in quitting. (3) Chronic obstructive pulmonary disease with hypoxia: Code(s): J44.9 - Chronic obstructive pulmonary disease, unspecified; R09.02 - Hypoxemia Status: Acute Assessment and Plan: Patient required supplemental oxygen at discharge April 2020. She may have chronic respiratory failure related to COPD. She is in no respiratory distress. Home oxygen evaluation shows she needs 2L/min O2 with exertion. Given her poor activity tolerance, appreciate PT/OT evaluations; home health therapy arranged. Continue home advair. COVID negative 02/23/21 (4) Hypothyroidism (acquired): Code(s): E03.9 - Hypothyroidism, unspecified Status: Chronic Assessment and Plan: Continue home levothyroxine. DS: Summary Hospital Course Hospital Course: See above Time Spent with Patient Time attestation: Total time spent providing and/or coordinating discharge services: 35 minutes. Exam Narrative: Exam Narrative: General: Female resting comfortably sitting up in bed in no acute distress. HEENT: Normoc
[2021-02-24 14:00] VITALS: BP 154/74; PULSE 60; RESP 20; TEMP 36.6; O2SAT 92
[2021-02-24] MEDS: ALBUTEROL SULFATE (*SP) AEROSOL 1 PUFF 4 PUFF INHALATION (15:11)
== END 2021-02-24 18:00 | disposition home health service (06) ==
LOC: ANHED 22:01 → ANH3MEDSUR 02-23 02:20
PROVIDERS: Emergency Medicine; Admitting Provider Internal Medicine; Emergency Provider Emergency Medicine; PCP Emergency Medicine; Visit Provider Physician Assistant
DX: I10 Essential (primary) hypertension (principal); J44.9 Chronic obstructive pulmonary disease, unspecified; F17.210 Nicotine dependence, cigarettes, uncomplicated; E03.9 Hypothyroidism, unspecified; R09.02 Hypoxemia; R06.89 Other abnormalities of breathing; Z20.822 Contact with and (suspected) exposure to COVID-19
CPT/HCPCS: 36415; 36600; 71046; 80048; 82805; 83735; 83880; 85025; 93005; 94618; 94640; 96372; 96374; 97161; 97165; 97535; 99285; A9270; C9803; G0378; J1650; J3475; U0003; U0005

== ENCOUNTER 2021-03-03 16:05 | Emergency (ER) | payer MEDICARE, SELFPAY ==
[2021-03-03 16:42] VITALS: BP 147/68; PULSE 72; RESP 18; TEMP 36.3; O2SAT 94
[2021-03-03 17:49] VITALS: BP 167/85; PULSE 64; RESP 22; O2SAT 95
--- NOTE | 2021-03-03 18:32 | PC.NURSE ---
Pt reports PA stating that pt will be discharged soon, followed up with PA about ordered blood work. PA requests to not draw blood.
--- NOTE | 2021-03-03 18:35 | PC.NURSE ---
Pt roommate Karunaerin Terry at [phone] called for pt transport. Reports she will be here to get pt shortly.
--- NOTE | 2021-03-03 18:36 | ED.GENADULT ---
HPI - General Adult General Chief complaint: Recheck/Abnormal Lab/Rx Stated complaint: elevated bp per home health nurse Time Seen by Provider: 03/03/21 17:57 Source: patient, EMS, RN notes reviewed and old records reviewed Mode of arrival: ambulatory Limitations: no limitations History of Present Illness HPI narrative: Patient is an 80-year-old female who presents to emergency department for evaluation of having an elevated blood pressure reading at home today patient was being evaluated by her home health found to have elevated blood pressure was sent in EMS had multiple normal blood pressures in route on arrival patient has no complaints and her blood pressure on arrival was acceptable limits patient has a history of hypertension and is compliant with her medication patient otherwise in no distress and has no other complaints on arrival Related Data Home Medications Medication Instructions Recorded Confirmed silver sulfadiazine [SSD] 1 applic TOPICAL BID PRN 04/06/20 02/23/21 methocarbamol 500 mg PO HS 02/23/21 02/23/21 Allergies Allergy/AdvReac Type Severity Reaction Status Date / Time Penicillins Allergy Severe Hives Verified 03/03/21 17:51 QIANA Inhibitors Allergy Mild Unknown Verified 03/03/21 17:51 Review of Systems Review of Systems: All systems reviewed & are unremarkable except as noted in HPI and below PMFSH Past Medical History Medical History (Updated 03/03/21 @ 18:40 by Nguyễn Zepeda PA-C) Chronic venous stasis dermatitis COPD (chronic obstructive pulmonary disease) Depression Hyperglycemia Hypothyroidism (acquired) Kidney stones Right kidney stone December 2018 Rheumatoid arthritis Surgical History Surgical History History of section X1 History of cholecystectomy History of evacuation of hematoma Of lateral thigh 2013 Status post cataract extraction of both eyes with insertion of intraocular lens 2003 Family History Family History Sibling Patient's sister is in good health Mother Diabetes mellitus, Onset Age: 41 Father Heart attack Cardiovascular disease Social History Social History (Updated 02/23/21 @ 08:48 by Macy Reed DO) Social History: Primary care physician: Dr. Henry Hinojosa Code status: DNR/DNI Medical POA: Ftaemeh Pittman (daughter) Smoking packs per day: 1 Smoking cigarettes per day: 20.0 Years smoked: 70 Smoking pack-years: 70.00 Smoking status: Current every day smoker Tobacco type: cigarettes Second hand tobacco smoke exposure: No Alcohol intake: never Substance use: never Additional living arrangements comments: The patient has been since 2013. [place]. She still drives. She has 1 daughter. 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 Gender identity (if verbalized by the patient): Female Spiritual care concerns: No Exam Narrative: Exam Narrative: GENERAL: Well-appearing, obese, and in no acute distress. HEAD: Normocephalic, atraumatic. EYES: PERRLA and EOMI. ENT: Nares clear, no rhinorrhea or epistaxis. Mucous membranes moist. NECK: Supple. No adenopathy or masses. No carotid bruits or JVD CHEST: Clear to auscultation. No respiratory distress. Coarse breath sounds on auscultation which the patient notes is chronic HEART: Regular rate and rhythm. No murmur heard. Normal peripheral pulses. ABDOMEN: Soft, nontender, nondistended EXTREMITIES: Normal range of motion. No edema. SKIN: Warm, dry, no rash. NEURO: No focal deficits. Alert and oriented x3. Cranial nerves II through XII grossly intact PSYCH: Normal mood and affect. Course Course Emergency Course: Patient in the room no distress aware of case findings treatment plan and diagnosis agreeing to follow-up as instructed was offered further evaluation
[2021-03-03 19:05] VITALS: BP 154/66; PULSE 66; RESP 18; O2SAT 95
--- NOTE | 2021-03-03 19:19 | PC.NURSE ---
Spoke with pt friend on the phone for a reminder to get O2. Friend forgot O2 and refuses to go back. Reports pt is able to be off of O2 for hours to smoke. Spoke with pt about O2 concerns. Pt states that she would like to go home with friend on room air.
== END 2021-03-03 19:05 | disposition home or self-care (01) ==
PROVIDERS: Emergency Provider Emergency Medicine; PCP Emergency Medicine
DX: I10 Essential (primary) hypertension (principal); J44.9 Chronic obstructive pulmonary disease, unspecified; M06.9 Rheumatoid arthritis, unspecified; I87.2 Venous insufficiency (chronic) (peripheral); Z87.442 Personal history of urinary calculi; Z98.42 Cataract extraction status, left eye; Z98.41 Cataract extraction status, right eye; Z96.1 Presence of intraocular lens; F17.210 Nicotine dependence, cigarettes, uncomplicated; Z66 Do not resuscitate
CPT/HCPCS: 99281

== ENCOUNTER 2021-03-26 09:40 | Emergency (ER) | payer MEDICARE, SELFPAY ==
[2021-03-26] VITALS (13 sets, daily range): BP systolic 109–156; BP diastolic 53–67; PULSE 46–57; RESP 11–18; TEMP 36.2; O2SAT 92–100
--- NOTE | 2021-03-26 09:41 | ECG_ITS ---
Measurements Intervals [place] Rate: 56 P: 80 [place]: 175 QRS: -50 QRSD: 154 T: 37 QT: 495 QTc: 479 Interpretive Statements SINUS BRADYCARDIA RIGHT BUNDLE BRANCH BLOCK LEFT ANTERIOR FASCICULAR BLOCK BASELINE ARTIFACT- I, II, III, AVR, AVL, AVF, V1-V6 ABNORMAL ECG Electronically Signed On 03-26-2021 10:09:34 CDT by Alphonso Nicole D.O.
[2021-03-26 10:00] LABS: Basophils Absolute Auto 0.1 K/mm3 (0.0-0.1); Basophils Percent Auto 0.8 % (0.2-1.2); Eosinophils Absolute Auto 0.2 K/mm3 (0-0.3); Eosinophils Percent Auto 1.7 % (0-4.4); Hematocrit 48.2 % (37.0-47.0); Hemoglobin 15.7 g/dL (12.0-15.0); Immature Granulocyte Absolute 0.03 K/mm3 (0.00-0.031); Immature Granulocyte Percent A 0.3 % (0-0.5); Lymphocytes Absolute Auto 2.07 K/mm3 (0.9-3.2); Lymphocytes Percent Auto 24.1 % (18.3-44.2); Mean Corpuscular HGB Conc 32.6 g/dl (32-36); Mean Corpuscular Hemoglobin 29.3 pg (26-34); Mean Corpuscular Volume 90.1 fl (80-100); Monocytes Absolute Auto 0.3 K/mm3 (0.1-0.6); Monocytes Percent Auto 3.6 % (2.6-8.5); Neutrophils Percent Auto 69.5 % (45.5-73.1); Platelet Count Result 271 k/mm3 (150-375); Red Blood Count 5.35 M/mm3 (4.2-5.4); Red Cell Distribution Width 15.5 % (11.5-14.5); White Blood Count 8.6 K/mm3 (4.5-10.0)
[2021-03-26 10:09] LABS: INR 0.9; Prothrombin Time 13.1 Seconds (11.1-14.7)
[2021-03-26 10:10] LABS: Alanine Aminotransferase 13 U/L (4-35); Alkaline Phosphatase 104 U/L (38-126); Anion Gap 4 mmol/L (8-16); Aspartate Amino Transferase 24 U/L (14-36); Bilirubin,Total 0.3 mg/dL (0.2-1.3); Blood Urea Nitrogen 12 mg/dL (7-17); Calcium 9.6 mg/dL (8.4-10.2); Carbon Dioxide 32 mmol/L (22-30); Chloride 107 mmol/L (98-107); Estimated CRCL calculation 59 ml/min; Estimated Glomerular Filt Rate > 60; Glucose 119 mg/dL (65-105); Potassium 3.6 mmol/L (3.4-5.0); Sodium 143 mmol/L (137-145)
[2021-03-26 10:22] LABS: Troponin I < 0.012 ng/mL (0.000-0.034)
[2021-03-26] MEDS: METOCLOPRAMIDE HCL INJ 10 MG/2 ML VIAL 5 MG IV PUSH (10:27)
[2021-03-26] MEDS: MECLIZINE HCL 25 MG TABLET PO (10:27)
--- NOTE | 2021-03-26 13:22 | ED.DIZZY ---
HPI - Dizziness General Chief Complaint: Dizziness Stated Complaint: dizzy, nausea Time Seen by Provider: 03/26/21 09:41 Source: patient Mode of arrival: EMS Limitations: no limitations History of Present Illness HPI Narrative: 80-year-old with a history of COPD, hyperlipidemia was brought in from home with a sudden onset of dizziness. Patient states that she was just sitting in a recliner when she was trying to get up the whole room started spinning. She also complained of nausea but no significant vomiting. She denied any chest pain, shortness of breath. Denies any abdominal pain. Patient states she had a similar episode several years ago which spontaneously resolved on its own. MD elicited complaint: vertigo Pertinent past history: BPPV Onset (ago): hour(s) (1) Timing: sudden onset Severity: moderate Description: room spinning Context: change in body position Exacerbating factors: movement/ambulation Associated symptoms: nausea Related Data Home Medications Medication Instructions Recorded Confirmed silver sulfadiazine [SSD] 1 applic TOPICAL BID PRN 04/06/20 02/23/21 methocarbamol 500 mg PO HS 02/23/21 02/23/21 Allergies Allergy/AdvReac Type Severity Reaction Status Date / Time Penicillins Allergy Severe Hives Verified 03/26/21 10:19 QIANA Inhibitors Allergy Mild Unknown Verified 03/26/21 10:19 Review of Systems Review of Systems: All systems reviewed & are unremarkable except as noted in HPI and below Constitutional: Constitutional: Reports no additional constitutional complaints Eyes: Eyes: Reports no additional eye complaints ENT: Reports system reviewed and no additional complaints, except as documented Cardiovascular: Cardiovascular: Reports no additional cardiovascular complaints Respiratory: Respiratory: Reports no additional respiratory complaints Gastrointestinal: Gastrointestinal: Reports as per HPI Musculoskeletal: Musculoskeletal: Reports no additional musculoskeletal complaints Integumentary/Breasts: Skin/Breast: Reports system reviewed and no additional complaints, except as docu Neurologic: Reports system reviewed and no additional complaints, except as documented PMFSH Past Medical History Medical History Chronic venous stasis dermatitis COPD (chronic obstructive pulmonary disease) Depression Hyperglycemia Hypothyroidism (acquired) Kidney stones Right kidney stone December 2018 Rheumatoid arthritis Surgical History Surgical History History of section X1 History of cholecystectomy History of evacuation of hematoma Of lateral thigh 2013 Status post cataract extraction of both eyes with insertion of intraocular lens 2003 Family History Family History Sibling Patient's sister is in good health Mother Diabetes mellitus, Onset Age: 41 Father Heart attack Cardiovascular disease Social History Social History Social History: Primary care physician: Dr. Henry Hinojosa Code status: DNR/DNI Medical POA: Fatemeh Pittman (daughter) Smoking packs per day: 1 Smoking cigarettes per day: 20.0 Years smoked: 70 Smoking pack-years: 70.00 Smoking status: Current every day smoker Tobacco type: cigarettes Second hand tobacco smoke exposure: No Alcohol intake: never Substance use: never Additional living arrangements comments: The patient has been since 2013. She lives in [place] trailer park. She still drives. She has 1 daughter. 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 Gender identity (if verbalized by the patient): Female Spiritual care concerns: No Exam Narrative: Exam Narrative: GENERAL: Well-appearing, obese, and in no acute distress. HEAD: Normocephalic, atrau
--- NOTE | 2021-03-26 13:57 | PC.NURSE ---
SPOKE WITH ALYX WHO STATES SHE WILL COME TO [facility] THE PT [facility].
== END 2021-03-26 15:05 | disposition home or self-care (01) ==
PROVIDERS: Emergency Provider Family Medicine; PCP Emergency Medicine
DX: H81.10 Benign paroxysmal vertigo, unspecified ear (principal); J44.9 Chronic obstructive pulmonary disease, unspecified; E78.5 Hyperlipidemia, unspecified; M06.9 Rheumatoid arthritis, unspecified; E03.9 Hypothyroidism, unspecified; I87.2 Venous insufficiency (chronic) (peripheral); Z87.442 Personal history of urinary calculi; Z98.42 Cataract extraction status, left eye; Z98.41 Cataract extraction status, right eye; Z96.1 Presence of intraocular lens; F17.210 Nicotine dependence, cigarettes, uncomplicated
CPT/HCPCS: 36415; 80053; 84484; 85025; 85610; 93005; 96374; 99284; A9270; J2765

== ENCOUNTER 2021-06-20 11:24 | Emergency (ER) | payer MEDICARE, MEDICAID, SELFPAY ==
--- NOTE | ~2021-06-20 | XR_ITS ---
EXAMINATION: XR chest 1V portable INDICATION: Dizziness TECHNIQUE: Portable AP chest at 1220 hours COMPARISON: 02/22/2021 FINDINGS: The lungs are free of acute opacities. There is no pleural effusion or pneumothorax. The ca rdiomediastinal silhouette is normal. 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 IMPRESSION: 1. No acute cardiopulmonary abnormality. Reviewed, dictated and finalized at location A.
[2021-06-20 11:28] VITALS: BP 133/99; PULSE 92; RESP 18; TEMP 36.8; O2SAT 100
--- NOTE | 2021-06-20 12:14 | ECG_ITS ---
Measurements Intervals [place] Rate: 53 P: 55 AL: 155 QRS: -43 QRSD: 140 T: 6 QT: 475 QTc: 446 Interpretive Statements SINUS BRADYCARDIA LEFT AXIS DEVIATION RIGHT BUNDLE BRANCH BLOCK BASELINE ARTIFACT- I, II, AVL, V4, V6 ABNORMAL ECG Electronically Signed On 06-20-2021 17:36:44 CDT by Alphonso Nicole D.O.
--- NOTE | 2021-06-20 12:50 | ED.DIZZY ---
HPI - Dizziness General Chief Complaint: Dizziness Stated Complaint: . Time Seen by Provider: 06/20/21 12:00 History of Present Illness HPI Narrative: Patient presents with intermittent dizziness. Patient ports symptoms been present since Monday. On Monday she had a sensation that the room is spinning. Reports she was seen for this months ago does not member her diagnosis. Monday and today reports she is feeling lightheaded but denies a sensation of she was going to pass out. Denies any focal weakness or numbness denies any chest pain or shortness of breath. She denies any headache. She denies any change in vision or change in hearing. She said symptoms occurred at rest and there are no clear aggravating or alleviating factors. She has been feeling all over the past couple days has been eating and drinking well Related Data Home Medications Medication Instructions Recorded Confirmed silver sulfadiazine [SSD] 1 applic TOPICAL BID PRN 04/06/20 02/23/21 Allergies Allergy/AdvReac Type Severity Reaction Status Date / Time Penicillins Allergy Severe Hives Verified 03/26/21 10:19 QIANA Inhibitors Allergy Mild Unknown Verified 03/26/21 10:19 Review of Systems Review of Systems: CONSTITUTIONAL: Denies fever, chills, or sweats. EYES: Denies visual changes, redness, or discharge. ENT: Denies rhinorrhea, congestion, sore throat, or otalgia. CARDIOVASCULAR: Denies chest pain, palpitations, or edema. RESPIRATORY: Denies cough or dyspnea. GASTROINTESTINAL: Denies abdominal pain, nausea, vomiting, or diarrhea. GENITOURINARY: Denies dysuria or hematuria. SKIN: Denies rash or itching. MUSCULOSKELETAL: Denies back pain, joint pain, or myalgia. NEUROLOGIC: Denies headache, numbness, or focal weakness. PSYCHIATRIC: Denies anxiety or depression. All systems reviewed & are unremarkable except as noted in HPI and below PMFSH Past Medical History Medical History (Updated 06/20/21 @ 15:19 by Danie Escoto MD) Chronic venous stasis dermatitis COPD (chronic obstructive pulmonary disease) Depression Hyperglycemia Hypothyroidism (acquired) Kidney stones Right kidney stone December 2018 Rheumatoid arthritis Surgical History Surgical History History of section X1 History of cholecystectomy History of evacuation of hematoma Of lateral thigh 2013 Status post cataract extraction of both eyes with insertion of intraocular lens 2003 Family History Family History Sibling Patient's sister is in good health Mother Diabetes mellitus, Onset Age: 41 Father Heart attack Cardiovascular disease Social History Social History Social History: Primary care physician: Dr. Henry Hinojosa Code status: DNR/DNI Medical POA: Fatemeh Pittman (daughter) Smoking packs per day: 1 Smoking cigarettes per day: 20.0 Years smoked: 70 Smoking pack-years: 70.00 Smoking status: Current every day smoker Tobacco type: cigarettes Second hand tobacco smoke exposure: No Alcohol intake: never Substance use: never Additional living arrangements comments: The patient has been since 2013. She lives in a trailer park. She still drives. She has 1 daughter. 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 Gender identity (if verbalized by the patient): Female Spiritual care concerns: No Exam Narrative: GENERAL: Well-appearing, well-nourished, and in no acute distress. HEAD: Normocephalic, atraumatic. EYES: PERRLA and EOMI. ENT: Nares clear, no rhinorrhea or epistaxis. Mucous membranes moist. NECK: Supple. No masses. No JVD CHEST: Clear to auscultation. No respiratory distress. No wheezes rales or rhonchi HEART: Regular rate and rhythm. No murmur heard. Normal peripheral pulses. ABDOMEN: S
[2021-06-20 12:59] LABS: Basophils Absolute Auto 0.1 K/mm3 (0.0-0.1); Basophils Percent Auto 0.9 % (0.2-1.2); Eosinophils Absolute Auto 0.2 K/mm3 (0-0.3); Eosinophils Percent Auto 2.2 % (0-4.4); Hematocrit 42.4 % (37.0-47.0); Hemoglobin 13.5 g/dL (12.0-15.0); Immature Granulocyte Absolute 0.02 K/mm3 (0.00-0.031); Immature Granulocyte Percent A 0.3 % (0-0.5); Mean Corpuscular HGB Conc 31.8 g/dl (32-36); Mean Corpuscular Hemoglobin 29.5 pg (26-34); Mean Corpuscular Volume 92.6 fl (80-100); Mean Platelet Volume 11.7 fl (7.4-10.4); Monocytes Absolute Auto 0.4 K/mm3 (0.1-0.6); Neutrophils Absolute Auto 4.4 K/mm3 (1.3-6.7); Neutrophils Percent Auto 58.6 % (45.5-73.1); Platelet Count Result 323 k/mm3 (150-375); Red Blood Count 4.58 M/mm3 (4.2-5.4); Red Cell Distribution Width 14.9 % (11.5-14.5); White Blood Count 7.6 K/mm3 (4.5-10.0)
[2021-06-20] MEDS: SODIUM CHLORIDE 0.9% IV 500 ML 999 ML IV CONT (12:59)
[2021-06-20] MEDS: MECLIZINE HCL 25 MG TABLET PO (13:00)
[2021-06-20 13:11] LABS: Alanine Aminotransferase 12 U/L (4-35); Albumin Level 3.6 g/dL (3.5-5.1); Alkaline Phosphatase 106 U/L (38-126); Anion Gap 1 mmol/L (8-16); Aspartate Amino Transferase 20 U/L (14-36); Bilirubin,Total 0.4 mg/dL (0.2-1.3); Blood Urea Nitrogen 10 mg/dL (7-17); Calcium 9.3 mg/dL (8.4-10.2); Carbon Dioxide 33 mmol/L (22-30); Chloride 105 mmol/L (98-107); Estimated CRCL calculation 57 ml/min; Estimated Glomerular Filt Rate > 60; Glucose 90 mg/dL (65-110); Potassium 3.6 mmol/L (3.4-5.0); Sodium 139 mmol/L (137-145)
[2021-06-20 14:18] LABS: Add Urine Microscopic? YES; Appearance Urine Cloudy (Clear); Bilirubin Urine Negative (Negative); Blood Urine Negative (Negative); Color Urine Yellow (Yellow); Glucose Urine UA Negative (Negative); Ketones Urine Negative (Negative); Leukocyte Esterase Ur 2+ LEU/UL (Negative); Mucus Urine Rare /lpf; Nitrate Urine Negative (Negative); Protein Urine 1+ mg/dL (Negative); Specific Grav Ur 1.018 (1.001-1.035); Urobilinogen Urine Negative mg/dL (<2.0); WBC Urine 31-50 /hpf
[2021-06-20 15:41] VITALS: BP 163/66; PULSE 52; RESP 16; O2SAT 100
== END 2021-06-20 16:10 | disposition home or self-care (01) ==
PROVIDERS: Emergency Provider Emergency Medicine; PCP Emergency Medicine
DX: N39.0 Urinary tract infection, site not specified (principal); R42 Dizziness and giddiness; J44.9 Chronic obstructive pulmonary disease, unspecified; E03.9 Hypothyroidism, unspecified; F17.210 Nicotine dependence, cigarettes, uncomplicated
CPT/HCPCS: 36415; 71045; 80053; 81001; 85025; 87077; 87086; 87088; 87186; 93005; 96360; 99283; A9270; J7040

== ENCOUNTER 2021-08-28 10:21 | Emergency (ER) | payer MEDICARE, MEDICAID, SELFPAY ==
[2021-08-28] VITALS (17 sets, daily range): BP systolic 132–165; BP diastolic 62–100; PULSE 51–78; RESP 14–25; TEMP 36.3; O2SAT 94–100
--- NOTE | 2021-08-28 10:29 | ECG_ITS ---
Measurements Intervals [place] Rate: 51 P: 79 MT: 193 QRS: -39 QRSD: 149 T: 31 QT: 494 QTc: 459 Interpretive Statements SINUS BRADYCARDIA LEFT AXIS DEVIATION RIGHT BUNDLE BRANCH BLOCK BASELINE ARTIFACT- I, II, III, AVR, AVL, AVF, V1-V6 ABNORMAL ECG Electronically Signed On 08-28-2021 10:58:15 CDT by Alphonso Nicole D.O.
--- NOTE | 2021-08-28 10:57 | ED.DIZZY ---
HPI - Dizziness General Chief Complaint: Dizziness Stated Complaint: dizzy Time Seen by Provider: 08/28/21 10:34 Source: patient and RN notes reviewed Mode of arrival: ambulatory Limitations: no limitations History of Present Illness HPI Narrative: This is an 81 year old female who presents for evaluation of dizziness. Patient states she was attempting to get up this morning but she felt dizziness . She describes her dizziness as that she fell like she was going to fall back so she did not get up. She denies spinning, headache, lightheadedness, blurred vision, numbness, tingling or focal weakness. She denies chest pain, sob, abdominal pain. She reports chronic cough. Related Data Home Medications Medication Instructions Recorded Confirmed silver sulfadiazine [SSD] 1 applic TOPICAL BID PRN 04/06/20 02/23/21 Allergies Allergy/AdvReac Type Severity Reaction Status Date / Time Penicillins Allergy Severe Hives Verified 03/26/21 10:19 QIANA Inhibitors Allergy Mild Unknown Verified 03/26/21 10:19 Review of Systems Review of Systems: All systems reviewed & are unremarkable except as noted in HPI and below PMFSH Past Medical History Medical History (Updated 08/28/21 @ 16:06 by Fariba Last MD) Chronic venous stasis dermatitis COPD (chronic obstructive pulmonary disease) Depression Hyperglycemia Hypothyroidism (acquired) Kidney stones Right kidney stone December 2018 Rheumatoid arthritis Surgical History Surgical History History of section X1 History of cholecystectomy History of evacuation of hematoma Of lateral thigh 2013 Status post cataract extraction of both eyes with insertion of intraocular lens 2003 Family History Family History Sibling Patient's sister is in good health Mother Diabetes mellitus, Onset Age: 41 Father Heart attack Cardiovascular disease Social History Social History Social History: Primary care physician: Dr. Henry Hinojosa Code status: DNR/DNI Medical POA: Fatemeh Pittman (daughter) Smoking packs per day: 1 Smoking cigarettes per day: 20.0 Years smoked: 70 Smoking pack-years: 70.00 Smoking status: Current every day smoker Tobacco type: cigarettes Second hand tobacco smoke exposure: No Alcohol intake: never Substance use: never Additional living arrangements comments: The patient has been since 2013. She lives in a trailer park. She still drives. She has 1 daughter. 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 Gender identity (if verbalized by the patient): Female Spiritual care concerns: No Exam Const: General: no acute distress and alert Orientation/consciousness: patient oriented x3 HENMT: Head: normocephalic and atraumatic Ears: TM's normal bilaterally Face and sinus: normal facial exam, sinuses nontender and face symmetric Mouth: Yes Normal oral and palatal mucosa present, Yes lip normal, Yes oropharynx normal and Yes moist mucous membranes Throat: posterior oropharynx normal, tonsils normal and uvula midline Eyes: Pupils: Equal, round and reactive pupils present EOM: EOMs intact bilaterally Resp: Effort & Inspection: normal respiratory effort and no retractions Auscultation: clear to auscultation bilaterally Cardio: Rate: regular rate Rhythm: regular rhythm Heart sounds: no murmurs GI: GI Palp: Yes Soft to palpation, No Tenderness to palpation present (GI) and No Guarding due to palpation present (GI) Auscultation: normal bowel sounds Back/Spine/Pelvis: Back: no CVA tenderness Skin: General skin exam: normal color Rashes: no rashes Neuro: General: patient oriented x3, moves all extremities, no meningeal signs, no focal motor deficits and CN's II-XI intact bilaterally Cr
[2021-08-28 11:22] LABS: Basophils Absolute Auto 0.1 K/mm3 (0.0-0.1); Basophils Percent Auto 1.2 % (0.2-1.2); Eosinophils Absolute Auto 0.2 K/mm3 (0-0.3); Hematocrit 44.4 % (37.0-47.0); Hemoglobin 14.8 g/dL (12.0-15.0); Immature Granulocyte Absolute 0.02 K/mm3 (0.00-0.031); Immature Granulocyte Percent A 0.3 % (0-0.5); Lymphocytes Absolute Auto 2.12 K/mm3 (0.9-3.2); Lymphocytes Percent Auto 31.8 % (18.3-44.2); Mean Corpuscular HGB Conc 33.3 g/dl (32-36); Mean Corpuscular Hemoglobin 30.8 pg (26-34); Mean Corpuscular Volume 92.3 fl (80-100); Mean Platelet Volume 12.2 fl (7.4-10.4); Monocytes Absolute Auto 0.3 K/mm3 (0.1-0.6); Monocytes Percent Auto 3.7 % (2.6-8.5); Platelet Count Result 296 k/mm3 (150-375); Red Blood Count 4.81 M/mm3 (4.2-5.4); Red Cell Distribution Width 15.3 % (11.5-14.5); White Blood Count 6.7 K/mm3 (4.5-10.0)
[2021-08-28 11:36] LABS: Add Urine Microscopic? YES; Appearance Urine Clear (Clear); Bacteria Urine Trace /hpf; Bilirubin Urine Negative (Negative); Blood Urine Negative (Negative); Color Urine Yellow (Yellow); Glucose Urine UA Negative (Negative); Ketones Urine Negative (Negative); Leukocyte Esterase Ur 1+ LEU/UL (Negative); Mucus Urine Rare /lpf; Nitrate Urine Negative (Negative); Protein Urine Negative (Negative); RBC Urine 0-2 /hpf (0-2); Specific Grav Ur 1.012 (1.001-1.035); Squamous Epithelial Cell Urine Occasional /hpf (Few); Urobilinogen Urine Negative mg/dL (<2.0)
[2021-08-28] MEDS: MECLIZINE HCL 25 MG TABLET PO (11:50)
[2021-08-28 12:34] LABS: Alanine Aminotransferase 13 U/L (4-35); Albumin Level 3.6 g/dL (3.5-5.1); Alkaline Phosphatase 96 U/L (38-126); Anion Gap 6 mmol/L (8-16); Aspartate Amino Transferase 25 U/L (14-36); Bilirubin,Total 0.4 mg/dL (0.2-1.3); Blood Urea Nitrogen 18 mg/dL (7-17); Calcium 9.4 mg/dL (8.4-10.2); Carbon Dioxide 26 mmol/L (22-30); Chloride 108 mmol/L (98-107); Estimated CRCL calculation 56 ml/min; Estimated Glomerular Filt Rate > 60; Glucose 93 mg/dL (65-110); Potassium 4.8 mmol/L (3.4-5.0); Sodium 140 mmol/L (137-145)
--- NOTE | 2021-08-28 13:52 | PC.NURSE ---
patient refuses orthostatic vs stating she is not able to stand or sit up
--- NOTE | 2021-08-28 15:20 | PC.NURSE ---
patient walked in [place] with no dizziness
[2021-08-28] MEDS: NITROFURANTOIN MONOHYD MACROCR 100 MG CAP PO (16:16)
== END 2021-08-28 16:29 | disposition home or self-care (01) ==
PROVIDERS: Emergency Provider General Practice; PCP Emergency Medicine
DX: N39.0 Urinary tract infection, site not specified (principal); R53.1 Weakness; I87.2 Venous insufficiency (chronic) (peripheral); J44.9 Chronic obstructive pulmonary disease, unspecified; E03.9 Hypothyroidism, unspecified; Z87.442 Personal history of urinary calculi; M06.9 Rheumatoid arthritis, unspecified; Z98.42 Cataract extraction status, left eye; Z98.41 Cataract extraction status, right eye; Z96.1 Presence of intraocular lens; Z66 Do not resuscitate; F17.210 Nicotine dependence, cigarettes, uncomplicated; R00.1 Bradycardia, unspecified; I45.10 Unspecified right bundle-branch block
CPT/HCPCS: 36415; 80053; 81001; 85025; 87086; 87088; 93005; 99283; A9270

== ENCOUNTER 2022-04-27 11:23 | Emergency (ER) | payer MEDICARE, SELFPAY ==
[2022-04-27] VITALS (25 sets, daily range): BP systolic 143–206; BP diastolic 39–107; PULSE 45–71; RESP 12–25; TEMP 36.3–36.8; O2SAT 93–100
--- NOTE | ~2022-04-27 | CT_ITS ---
EXAMINATION: CT brain wo con INDICATION: Dizziness COMPARISON: None TECHNIQUE: Standard unenhanced head CT. The dose-length product (DLP) was 605.33 mGy-cm. The mA was a djusted according to patient size. Iterative reconstruction technique was employed. FINDINGS: There is no acute intraparenchymal hemorrhage. No evidence of mass lesion. 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 No evidence of acute infarction. There is mil d periventricular and subcortical hypodensity probably related to small vessel ischemic disease. Ther e is mild prominence of the sulci and ventricles related to cerebral atrophy. Intracranial calcified cerebral atherosclerosis is noted. There are no extra-axial collections. There is no mass effect or m idline shift. The orbits and soft tissues are unremarkable. The visualized sinuses and mastoid air ce lls are well aerated. IMPRESSION: 1. Areas of prior infarction without acute intracranial abnormality. 2. Age related findings. Reviewed, dictated and finalized at location A.
--- NOTE | ~2022-04-27 | XR_ITS ---
EXAMINATION: XR chest 1V portable INDICATION: Dizziness TECHNIQUE: Portable AP chest at 1152 hours COMPARISON: 06/20/2021 FINDINGS: The lungs are free of acute opacities. There is no pleural effusion or pneumothorax. The ca rdiomediastinal silhouette is normal. 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 IMPRESSION: 1. No acute cardiopulmonary abnormality. Reviewed, dictated and finalized at location A.
--- NOTE | 2022-04-27 11:27 | ED.DIZZY ---
HPI - Dizziness General Chief Complaint: Dizziness Stated Complaint: dizzy History of Present Illness HPI Narrative: Patient is an 81-year-old female with a history of hypertension, COPD, hypothyroidism, chronic vertigo, presenting to the emergency department for evaluation of worsening dizziness. Patient reports dizziness with movement that has worsened over the past 24 hours. Patient denies fall or injury. She reports nausea without vomiting. She denies vision changes, unilateral weakness or numbness. Patient denies any associated chest pain, palpitations, cough, shortness of breath. In the past, she states that her dizziness has been brought on by urinary tract infections although she denies any malodorous urine, urinary retention, frequency, urgency, dysuria or hematuria. Per chart review, patient with numerous presentations for this. Patient states she struggles with this chronically. Patient quite hypertensive at the time of assessment, states that she did not take any of her home medications this morning. Related Data Allergies Allergy/AdvReac Type Severity Reaction Status Date / Time Penicillins Allergy Severe Hives Verified 10/20/21 11:17 QIANA Inhibitors Allergy Mild Unknown Verified 10/20/21 11:17 Review of Systems Review of Systems: CONSTITUTIONAL: Denies fever, chills, or sweats. EYES: Denies visual changes, redness, or discharge. ENT: Denies rhinorrhea, congestion, sore throat, or otalgia. CARDIOVASCULAR: Denies chest pain, palpitations, or edema. RESPIRATORY: Denies cough or dyspnea. GASTROINTESTINAL: Denies abdominal pain, reports nausea GENITOURINARY: Denies dysuria or hematuria. SKIN: Denies rash or itching. MUSCULOSKELETAL: Denies back pain, joint pain, or myalgia. NEUROLOGIC: Denies headache, numbness, reports feeling generally weak, reports dizziness PMF Past Medical History Medical History (Updated 04/27/22 @ 14:05 by Chelita Campbell MD) Chronic venous stasis dermatitis COPD (chronic obstructive pulmonary disease) Depression Hyperglycemia Hypothyroidism (acquired) Kidney stones Right kidney stone December 2018 Rheumatoid arthritis Surgical History Surgical History History of section X1 History of cholecystectomy History of evacuation of hematoma Of lateral thigh 2013 Status post cataract extraction of both eyes with insertion of intraocular lens 2003 Family History Family History Sibling Patient's sister is in good health Mother Diabetes mellitus, Onset Age: 41 Father Heart attack Cardiovascular disease Social History Social History Social History: Primary care physician: Dr. Henry Hinojosa Code status: DNR/DNI Medical POA: Fatemeh Pittman (daughter) Smoking packs per day: 1 Smoking cigarettes per day: 20.0 Years smoked: 70 Smoking pack-years: 70.00 Smoking status: Current every day smoker Tobacco type: cigarettes Second hand tobacco smoke exposure: No Alcohol intake: never Substance use: never Additional living arrangements comments: The patient has been since 2013. She lives in a trailer park. She still drives. She has 1 daughter. 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 Gender identity (if verbalized by the patient): Female Spiritual care concerns: No Exam Narrative: GENERAL: Awake, alert, conversant HEAD: Normocephalic, atraumatic. EYES: PERRLA and EOMI. ENT: Nares clear, no rhinorrhea or epistaxis. Mucous membranes moist. NECK: Supple. CHEST: No respiratory distress, breathing even and non labored HEART: Regular rate, sinus rhythm ABDOMEN:Non distended, non tender EXTREMITIES: Normal range of motion. No edema. SKIN: Warm, dry, chronic venous stasis changes bilateral lower extremities NEURO:No focal defic
[2022-04-27] MEDS: ONDANSETRON INJ 4 MG/2 ML VIAL IV PUSH (11:44)
[2022-04-27] MEDS: MECLIZINE HCL 25 MG TABLET PO (11:44)
[2022-04-27] MEDS: SODIUM CHLORIDE 0.9% IV 500 ML 999 ML IV CONT (11:45)
[2022-04-27 11:50] LABS: Basophils Absolute Auto 0.1 K/mm3 (0.0-0.1); Basophils Percent Auto 1.2 % (0.2-1.2); Eosinophils Absolute Auto 0.1 K/mm3 (0-0.3); Hematocrit 42.4 % (37.0-47.0); Immature Granulocyte Absolute 0.01 K/mm3 (0.00-0.031); Immature Granulocyte Percent A 0.1 % (0-0.5); Lymphocytes Percent Auto 36.5 % (18.3-44.2); Mean Corpuscular Hemoglobin 30.3 pg (26-34); Mean Corpuscular Volume 91.8 fl (80-100); Mean Platelet Volume 12.4 fl (7.4-10.4); Monocytes Absolute Auto 0.3 K/mm3 (0.1-0.6); Monocytes Percent Auto 3.9 % (2.6-8.5); Neutrophils Absolute Auto 3.9 K/mm3 (1.3-6.7); Neutrophils Percent Auto 57.3 % (45.5-73.1); Platelet Count Result 255 k/mm3 (150-375); Red Blood Count 4.62 M/mm3 (4.2-5.4); Red Cell Distribution Width 14.9 % (11.5-14.5); White Blood Count 6.9 K/mm3 (4.5-10.0)
[2022-04-27 11:51] LABS: Appearance Urine Clear (Clear); Bilirubin Urine Negative (Negative); Blood Urine Negative (Negative); Color Urine Yellow (Yellow); Glucose Urine UA Negative (Negative); Ketones Urine Negative (Negative); Leukocyte Esterase Ur Negative LEU/UL (Negative); Nitrate Urine Negative (Negative); Protein Urine Negative (Negative); Urobilinogen Urine 0.2 mg/dL (<2.0); pH Urine 8.5 (5.0-9.0)
[2022-04-27 11:59] LABS: Add Urine Microscopic? NO
[2022-04-27 12:04] LABS: Anion Gap 6 mmol/L (8-16); Blood Urea Nitrogen 16 mg/dL (7-17); Carbon Dioxide 27 mmol/L (22-30); Chloride 109 mmol/L (98-107); Estimated Glomerular Filt Rate > 60; Glucose 102 mg/dL (65-110); Potassium 3.6 mmol/L (3.4-5.0); Sodium 142 mmol/L (137-145)
--- NOTE | 2022-04-27 12:40 | ECG_ITS ---
Measurements Intervals [place] Rate: 53 P: 95 [place]: 171 QRS: -50 QRSD: 156 T: 56 QT: 507 QTc: 478 Interpretive Statements SINUS BRADYCARDIA BASELINE ARTIFACT RIGHT BUNDLE BRANCH BLOCK LEFT ANTERIOR FASCICULAR BLOCK ABNORMAL ECG COMPARED TO ECG 08/28/2021 10:34:29 LEFT ANTERIOR FASCICULAR BLOCK NOW PRESENT Electronically Signed On 04-27-2022 14:55:46 CDT by Oziel Cast M.D.
[2022-04-27] MEDS: LOSARTAN POTASSIUM 50 MG TABLET PO (14:13)
[2022-04-27] MEDS: hydrALAZINE HCL 20 MG/ML VIAL 10 MG IV PUSH (14:14)
[2022-04-27 14:50] LABS: Troponin I 0.013 ng/mL (0.000-0.034)
--- NOTE | 2022-04-27 15:30 | PC.NURSE ---
CALLED EDITING COMPUTER PUBLISHER AND TO INFORM THEM PT NEEDS TRANSPORT HOME
== END 2022-04-27 16:08 | disposition home or self-care (01) ==
PROVIDERS: Emergency Provider Emergency Medicine; PCP Emergency Medicine
DX: R42 Dizziness and giddiness (principal); F17.210 Nicotine dependence, cigarettes, uncomplicated; J44.9 Chronic obstructive pulmonary disease, unspecified; F32.9 Major depressive disorder, single episode, unspecified; E03.9 Hypothyroidism, unspecified; Z87.442 Personal history of urinary calculi; M06.9 Rheumatoid arthritis, unspecified
CPT/HCPCS: 36415; 70450; 71045; 80048; 81003; 84484; 85025; 93005; 96361; 96374; 96375; 99284; A9270; J0360; J2405; J7040

== ENCOUNTER 2022-06-29 15:59 | Emergency (ER) | payer MEDICARE, MEDICAID, SELFPAY ==
[2022-06-29 16:00] VITALS: BP 148/67; PULSE 61; RESP 14; TEMP 36.4; O2SAT 96
--- NOTE | 2022-06-29 17:26 | ED.EPISTAXIS ---
HPI - Epistaxis General Chief complaint: Epistaxis Stated complaint: epistaxis Time Seen by Provider: 06/29/22 17:26 Source: patient and EMS Mode of arrival: EMS Limitations: no limitations History of Present Illness HPI Narrative: 81 years old white female presents with intermittent left nostril bleed Over the last 2 days last usually less than 20 minutes. Get better when she pressure her nose with her fingers. Today started 30 minutes prior to calling the ambulance, resolved on arrival of the ambulance to her home., Currently patient is not bleeding. She does not take any anticoagulant or antiplatelet medication. Patient have intermittent sneeze and blowing her nose for the last few weeks she denies any fever, chills, nausea, vomiting, shortness of breath, chest pain or headache. Related Data Allergies Allergy/AdvReac Type Severity Reaction Status Date / Time Penicillins Allergy Severe Hives Verified 04/29/22 11:24 QIANA Inhibitors Allergy Mild Unknown Verified 04/29/22 11:24 Review of Systems Review of Systems: All systems reviewed & are unremarkable except as noted in HPI and below PMFSH Past Medical History Medical History (Updated 06/29/22 @ 18:18 by Marium Davis MD) Chronic venous stasis dermatitis COPD (chronic obstructive pulmonary disease) Depression Hyperglycemia Hypothyroidism (acquired) Kidney stones Right kidney stone December 2018 Rheumatoid arthritis Surgical History Surgical History History of section X1 History of cholecystectomy History of evacuation of hematoma Of lateral thigh 2013 Status post cataract extraction of both eyes with insertion of intraocular lens 2003 Family History Family History Sibling Patient's sister is in good health Mother Diabetes mellitus, Onset Age: 41 Father Heart attack Cardiovascular disease Social History Social History Social History: Primary care physician: Dr. Henry Hinojosa Code status: DNR/DNI Medical POA: Fatemeh Pittman (daughter) Smoking packs per day: 1 Smoking cigarettes per day: 20.0 Years smoked: 70 Smoking pack-years: 70.00 Smoking status: Current every day smoker Tobacco type: cigarettes Second hand tobacco smoke exposure: No Alcohol intake: never Substance use: never Additional living arrangements comments: The patient has been since 2013. She lives in [place]. She still drives. She has 1 daughter. 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 Gender identity (if verbalized by the patient): Female Spiritual care concerns: No Exam Narrative: General appearance: Well-developed, well-nourished Skin: Normal color Head: Normocephalic, nontraumatic Eyes: Clear conjunctiva ENT: Oropharynx normal, ears normal, left nostril exam showed slightly moist bloody area anteriorly, no active bleeding Neck: Supple, nontender Chest and respiratory: Airway patent, no respiratory distress, no accessory muscle use Heart: Regular rate/rhythm Abdomen: Soft, nontender, no organomegaly, quiet bowel sounds Vascular: Normal peripheral pulses, normal capillary refill. Musculoskeletal: Normal range of motion, nontender back Neurologic: Alert and oriented ?3, SANITIZER is normal as tested, no gross motor deficit HENMT: General nose exam: Normal external nose present and Epistaxis present (Moist bloody spot anteriorly) Course Vital Signs Vital signs: Vital Signs Temperature 36.4 C 06/29/22 16:00 Pulse Rate 61 06/29
[2022-06-29] MEDS: SILVER NITRATE (*SP) STICK 1 EACH TOPICAL (18:49)
[2022-06-29 19:41] VITALS: BP 142/77; PULSE 87; RESP 18; O2SAT 99
== END 2022-06-29 19:43 | disposition home or self-care (01) ==
PROVIDERS: Emergency Provider Emergency Medicine; PCP Emergency Medicine
DX: R04.0 Epistaxis (principal); J44.9 Chronic obstructive pulmonary disease, unspecified; I87.2 Venous insufficiency (chronic) (peripheral); E03.9 Hypothyroidism, unspecified; M06.9 Rheumatoid arthritis, unspecified; Z87.442 Personal history of urinary calculi; Z98.42 Cataract extraction status, left eye; Z98.41 Cataract extraction status, right eye; Z96.1 Presence of intraocular lens; Z66 Do not resuscitate; F17.210 Nicotine dependence, cigarettes, uncomplicated
CPT/HCPCS: 30901; 99283

== ENCOUNTER 2022-08-29 16:46 | Emergency (ER) | payer MEDICARE, MEDICAID, SELFPAY ==
[2022-08-29 16:52] VITALS: BP 117/72; PULSE 63; RESP 16; TEMP 36.6; O2SAT 98
[2022-08-29 18:14] VITALS: BP 136/65; PULSE 57; RESP 19; O2SAT 97
--- NOTE | 2022-08-29 18:49 | ED.GENADULT ---
HPI - General Adult General Chief complaint: Nausea/Vomiting/Diarrhea Stated complaint: diarrhea x 2.5 weeks, meds not working anymore Time Seen by Provider: 08/29/22 17:27 History of Present Illness HPI narrative: This is an 82-year-old female presents to ED after 3 weeks of diarrhea. Patient notes that the diarrhea is primarily when she is sleeping at night. She can tell when she is going or not. Patient has seen her primary care physician was given her Imodium and gave her a kit to collect a stool sample. Patient was unable to figure out how to collect the stool because it is diarrhea. patient notes some abdominal discomfort when she is having the diarrhea but otherwise feels well and has no complaints. Related Data Allergies Allergy/AdvReac Type Severity Reaction Status Date / Time Penicillins Allergy Severe Hives Verified 07/25/22 09:46 QIANA Inhibitors Allergy Mild Unknown Verified 07/25/22 09:46 Review of Systems Review of Systems: CONSTITUTIONAL: Denies night sweats. EYES: No eye pain ENT: Denies rhinorrhea CARDIOVASCULAR: Denies palpitations RESPIRATORY: Denies hemoptysis GASTROINTESTINAL: Denies hematemesis GENITOURINARY: Denies hematuria. SKIN: Denies rash MUSCULOSKELETAL: Denies myalgia. NEUROLOGIC: Denies weakness. PSYCHIATRIC: Denies delusions PMFSH Past Medical History Medical History (Updated 08/29/22 @ 21:40 by Moses Steiner MD) Chronic venous stasis dermatitis COPD (chronic obstructive pulmonary disease) Depression Hyperglycemia Hypothyroidism (acquired) Kidney stones Right kidney stone December 2018 Rheumatoid arthritis Surgical History Surgical History History of section X1 History of cholecystectomy History of evacuation of hematoma Of lateral thigh 2013 Status post cataract extraction of both eyes with insertion of intraocular lens 2003 Family History Family History Sibling Patient's sister is in good health Mother Diabetes mellitus, Onset Age: 41 Father Heart attack Cardiovascular disease Social History Social History Social History: Primary care physician: Dr. Henry Hinojosa Code status: DNR/DNI Medical POA: Fatemeh Pittman (daughter) Smoking packs per day: 1 Smoking cigarettes per day: 20.0 Years smoked: 70 Smoking pack-years: 70.00 Smoking status: Current every day smoker Tobacco type: cigarettes Second hand tobacco smoke exposure: No Alcohol intake: never Substance use: never Additional living arrangements comments: The patient has been since 2013. She lives in a trailer park. She still drives. She has 1 daughter. 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 Gender identity (if verbalized by the patient): Female Spiritual care concerns: No Exam Narrative: APPEARANCE: No apparent distress. Head atraumatic. EYES: PERRLA/EOMI, NOSE: Normal no drainage NECK: Supple, Trachea midline RESPIRATORY: CTAB, No increased work of breathing. CARDIOVASCULAR: S1S2 appreciated ABDOMINAL: Soft, nontender, nondistended, , no guarding or rebound, hyperactive bowel sounds MUSCULOSKELETAl: No obvious deformities NEURO: Alert. Moving 4/4 extremities SKIN:: Warm, dry. Normal color PSYCHIATRIC: Normal affect Course Vital Signs Vital signs: Vital Signs Temperature 97.9 F 08/29/22 16:52 Pulse Rate 63 08/29/22 16:52 Respiratory Rate 16 08/29/22 16:52 Blood Pressure 117/72 08/29/22 16:52 Pulse Oximetry 98 08/29/22 16:52 Oxygen Delivery Room Air 08/29/22 16:52 Temperature 97.9 F 08/29/22 16:52 Pulse Rate 57 L 08/29/22 18:14 Respiratory Rate 19 08/29/22 18:14 Blood Pressure 136/65 08/29/22 18:14 Pulse Oximetry 97 08/29/22 18:14 Oxygen Delivery Room Air 08/29/22 16:52
[2022-08-29 19:41] LABS: Basophils Absolute Auto 0.1 K/mm3 (0.0-0.1); Basophils Percent Auto 0.6 % (0.2-1.2); Eosinophils Absolute Auto 0.1 K/mm3 (0-0.3); Eosinophils Percent Auto 0.9 % (0-4.4); Hematocrit 40.9 % (37.0-47.0); Hemoglobin 13.8 g/dL (12.0-15.0); Immature Granulocyte Absolute 0.03 K/mm3 (0.00-0.031); Immature Granulocyte Percent A 0.3 % (0-0.5); Immature Platelet Fraction Pct 15.2 % (0.9-11.2); Lymphocytes Absolute Auto 2.82 K/mm3 (0.9-3.2); Mean Corpuscular HGB Conc 33.7 g/dl (32-36); Mean Corpuscular Volume 88.9 fl (80-100); Mean Platelet Volume 12.8 fl (7.4-10.4); Monocytes Absolute Auto 0.7 K/mm3 (0.1-0.6); Monocytes Percent Auto 6.4 % (2.6-8.5); Neutrophils Absolute Auto 6.8 K/mm3 (1.3-6.7); Neutrophils Percent Auto 64.8 % (45.5-73.1); Platelet Count Result 283 k/mm3 (150-375); Red Cell Distribution Width 16.7 % (11.5-14.5); White Blood Count 10.4 K/mm3 (4.5-10.0)
[2022-08-29] MEDS: SODIUM CHLORIDE 0.9% IV 1,000 ML 999 ML IV CONT (20:17)
[2022-08-29 20:24] LABS: Alanine Aminotransferase 24 U/L (6-35); Albumin Level 4.3 g/dL (3.5-5.1); Alkaline Phosphatase 118 U/L (38-126); Anion Gap 17 mmol/L (8-16); Aspartate Amino Transferase 25 U/L (14-36); Bilirubin,Total 0.5 mg/dL (0.2-1.3); Blood Urea Nitrogen 33 mg/dL (7-17); Calcium 9.4 mg/dL (8.4-10.2); Carbon Dioxide 23 mmol/L (22-30); Chloride 101 mmol/L (98-107); Estimated Glomerular Filt Rate 43; Glucose 93 mg/dL (65-110); Lipase 159 U/L (23-300); Magnesium 1.7 mg/dL (1.6-2.3); Potassium 3.9 mmol/L (3.4-5.0); Sodium 141 mmol/L (137-145)
--- NOTE | 2022-08-29 22:19 | PC.NURSE ---
attempted to call health wound care specialist to pick patient up 3times. REBECA Maldonado attempted and stated she had her on the phone. Pt stated they were unable to pick pt up. Told patient that pt does not qualify for ambulance and they will be responsible for ambulance bill. stated that was fine. He was unable to spanish moss picker patient because their car is broke .
--- NOTE | 2022-08-29 22:43 | PC.NURSE ---
Pt states her is and the man I talked to was actually her friends boyfriend whom she lives with. Pt is senior integration developer light every 10 minutes and shouting out 'Nurse . Pt is A&Ox4. development assistant is aware of situation and will call house SUP.
[2022-08-30] MEDS: LOPERAMIDE HCL 2 MG CAPSULE 4 MG PO (01:20)
[2022-08-30 02:38] LABS: Toxigenic C. Diff NEGATIVE (NEGATIVE)
[2022-08-30] MEDS: ONDANSETRON HCL ODT 4 MG TABLET PO (03:47)
[2022-08-30 03:50] VITALS: BP 108/54; PULSE 53; RESP 18; O2SAT 96
--- NOTE | 2022-08-30 08:54 | PC.NURSE ---
Resting on cart awaiting transport. Tolerating ice chips without diarrhea.
[2022-08-30 09:36] VITALS: BP 128/66; PULSE 86; RESP 18; O2SAT 99
== END 2022-08-30 09:38 | disposition home or self-care (01) ==
PROVIDERS: Emergency Provider Emergency Medicine; PCP Emergency Medicine
DX: R19.7 Diarrhea, unspecified (principal); J44.9 Chronic obstructive pulmonary disease, unspecified; I87.2 Venous insufficiency (chronic) (peripheral); E03.9 Hypothyroidism, unspecified; M06.9 Rheumatoid arthritis, unspecified; Z98.42 Cataract extraction status, left eye; Z98.41 Cataract extraction status, right eye; Z87.442 Personal history of urinary calculi; Z66 Do not resuscitate; F17.210 Nicotine dependence, cigarettes, uncomplicated
CPT/HCPCS: 36415; 80053; 83690; 83735; 85025; 85055; 87045; 87269; 87272; 87427; 87493; 96360; 99283; A9270; J7030

== ENCOUNTER 2022-09-05 11:44 | Inpatient (IN) | payer MEDICARE, MEDICAID, SELFPAY ==
[2022-09-05] VITALS (48 sets, daily range): BP systolic 116–162; BP diastolic 43–101; PULSE 63–100; RESP 9–27; TEMP 36.3–36.7; O2SAT 58–100; BMI 29.2
--- NOTE | ~2022-09-05 | CT_ITS ---
EXAMINATION: CT abdomen pelvis w con DATE: 09/05/2022 16:18 INDICATION: Generalized abdominal pain TECHNIQUE: Computed tomography (CT) of the abdomen and pelvis was performed with 100 mL Omnipaque-350 intravenous contrast. Automated exposure control and iterative reconstruction technique were employe d. The dose-length product was 1064.43 mGy-cm. COMPARISON: 12/22/2018 FINDINGS: Calcified nodule in the right lower lobe consistent with old granulomatous disease. Heart size is nor mal. Atherosclerotic coronary artery calcific location. No pericardial or pleural effusion. Cholecyst ectomy clips the gallbladder fossa. Chronic small region of focal hepatic steatosis at the ligamentum teres. Linear high attenuation either calcifications or suture lines at the periphery of a 3.2 cm ot herwise simple appearing likely benign cystic lesion in the spleen. No significant interval change in three chronic heterogeneous bilateral adrenal masses, 2 in the left adrenal gland measuring 4.9 x 4. 0 cm and 2.4 x 1.6 cm and a 2.0 x 1.7 cm mass in the right adrenal gland. There is marked wall thickening at the gastric pylorus with gas and fluid within it appears to be a c ollar button ulcer arising anteriorly from the pylorus and proximal duodenum likely related to peptic ulcer disease. There is however no inflammatory stranding surrounding the suspected ulcer. There is gas and fluid within a second larger outpouching which appears to arise from the medial side of the d uodenal bulb which could represent either a second ulceration or a duodenal diverticulum. No free int raperitoneal gas. There is some inflammatory stranding surrounding the head of the pancreas suspicious for acute pancre atitis with few tiny dystrophic calcifications at the head of the pancreas consistent with sequela of chronic pancreatitis. Bilateral renal cysts comminuted largest measuring up to 1.5 cm at the upper pole of the right kidney . Again seen is indeterminate hypoattenuation lesion at the upper pole of the left kidney which is sl ightly increased in size now measuring 1.2 cm which could represent either a proteinaceous/hemorrhagi c cyst or solid renal cell carcinoma. There are multiple dilated loops of small bowel with transition point where a short loop of bowel ext ends through a moderate-sized umbilical hernia. The orifice to the hernia measures 3.2 x 3.0 cm. Ther e is edematous-appearing wall thickening of the segment of herniated bowel as well as short segment o f the small bowel distal to the herniated segment. The more distal small bowel is decompressed. Normal appendix. There are couple sigmoid diverticula without adjacent inflammatory change to suggest diverticulitis. Bladder and bilateral adnexa are unremarkable. Asymmetric enlargement of the anterio r wall of the uterus suggesting presence of a fibroid. No free intraperitoneal gas or fluid. No patho logically enlarged abdominal or pelvic lymphadenopathy. There is calcified atherosclerosis of the aor ta and many of the other arteries. Mild S-shaped thoracolumbar curvature with mild to moderate spondy losis. IMPRESSION: 1. Small bowel obstruction with transition point at a short loop of small bowel herniating into an um bilical hernia. There is wall thickening of the herniated segment as well as a short segment of the m ore distal small bowel which suggests possibility of incarceration/ischemia. 2. Wall thickening of the gastric pylorus and proximal duodenum and inflammatory stranding surroundin g the head of the pancreas. There appears to be ulceration at least at the gastric pylorus potentiall y also at the proximal duodenum which suggests this could be related peptic ulcer disease. There are however calcifications at the head of the pancreas and acute pancreatitis on an earlier CT dated 2012 which suggests this could be related to acute on chronic interstitial pancreatitis.
--- NOTE | ~2022-09-05 | XR_ITS ---
EXAMINATION: XR abdomen/kub 1V DATE: 09/06/2022 14:11 INDICATION: Intestinal obstruction. TECHNIQUE: A supine view of the abdomen on 2 radiographs was obtained. COMPARISON: CT abdomen and pelvis 09/05/2022 FINDINGS: There are dilated loops of small bowel. The colon is normal in caliber. Surgical clips in t he right upper quadrant are likely from cholecystectomy. The nasogastric tube tip is in the stomach. IMPRESSION: 1. Dilated small bowel with interval improvement, consistent with adynamic ileus versus small bowel o bstruction. Reviewed, dictated and finalized at location A. IMPRESSION: 1. Dilated small bowel with interval improvement, consistent with adynamic ileu s versus small bowel obstruction.
--- NOTE | ~2022-09-05 | XR_ITS ---
EXAM: XR abdomen NG/feed tube insert DATE: 09/05/2022 18:55 HISTORY: NG TUBE PLACEMENT . COMPARISON: None available. FINDINGS: New NG tube, tip overlying the stomach, side port near the GE junction. Clear lung bases. Incompletely visualized bowel gas pattern. Degenerative changes in the spine. IMPRESSION: Shallow positioning of the NG tube, consider advancing by 5 cm. Reviewed, dictated and finalized at location K.
--- NOTE | 2022-09-05 12:04 | ECG_ITS ---
Measurements Intervals [place] Rate: 71 P: 96 IA: 138 QRS: -56 QRSD: 153 T: 41 QT: 426 QTc: 466 Interpretive Statements SINUS RHYTHM RIGHT BUNDLE BRANCH BLOCK [120+ ms QRS DURATION, UPRIGHT V1, 40+ ms S IN I/aVL/V4/V5/V6] LEFT ANTERIOR FASCICULAR BLOCK [QRS AXIS <= -45, QR IN I, RS IN II] COMPARED TO ECG 04/27/2022 11:27:50 NO CHANGE Electronically Signed On 09-05-2022 12:59:58 CDT by Henry Smith M.D.
[2022-09-05 12:31] LABS: Basophils Absolute Auto 0.1 K/mm3 (0.0-0.1); Basophils Percent Auto 0.5 % (0.2-1.2); Eosinophils Percent Auto 0.1 % (0-4.4); Hematocrit 42.7 % (37.0-47.0); Hemoglobin 14.5 g/dL (12.0-15.0); Immature Granulocyte Absolute 0.04 K/mm3 (0.00-0.031); Immature Granulocyte Percent A 0.4 % (0-0.5); Lymphocytes Absolute Auto 1.87 K/mm3 (0.9-3.2); Lymphocytes Percent Auto 16.9 % (18.3-44.2); Mean Corpuscular Volume 88.2 fl (80-100); Mean Platelet Volume 12.3 fl (7.4-10.4); Monocytes Absolute Auto 0.5 K/mm3 (0.1-0.6); Monocytes Percent Auto 4.5 % (2.6-8.5); Neutrophils Absolute Auto 8.6 K/mm3 (1.3-6.7); Neutrophils Percent Auto 77.6 % (45.5-73.1); Platelet Count Result 366 k/mm3 (150-375); Red Blood Count 4.84 M/mm3 (4.2-5.4); Red Cell Distribution Width 15.9 % (11.5-14.5); White Blood Count 11.1 K/mm3 (4.5-10.0)
[2022-09-05 12:39] LABS: Alanine Aminotransferase 22 U/L (6-35); Albumin Level 3.7 g/dL (3.5-5.1); Alkaline Phosphatase 117 U/L (38-126); Anion Gap 10 mmol/L (8-16); Aspartate Amino Transferase 21 U/L (14-36); Bilirubin,Total 0.5 mg/dL (0.2-1.3); Blood Urea Nitrogen 22 mg/dL (7-17); Calcium 8.9 mg/dL (8.4-10.2); Carbon Dioxide 24 mmol/L (22-30); Chloride 105 mmol/L (98-107); Estimated Glomerular Filt Rate 60; Glucose 124 mg/dL (65-110); Lipase 53 U/L (23-300); Potassium 3.6 mmol/L (3.4-5.0); Sodium 139 mmol/L (137-145)
--- NOTE | 2022-09-05 15:26 | ED.ABDPAIN ---
HPI - Abdominal Pain General Chief Complaint: Abdominal Pain Stated Complaint: abd pain Time Seen by Provider: 09/05/22 15:16 History of Present Illness HPI narrative: Pt presents with intermittent lower abdominal pain and nausea for a few days. Pt also has intermittent diarrhea but has improved. Pt seen here in ED two weeks ago for diarrhea. Pt denies fever or bloody stools. Pt has not actueally vomited, just feels nauseated. Related Data Allergies Allergy/AdvReac Type Severity Reaction Status Date / Time Penicillins Allergy Severe Hives Verified 09/05/22 15:18 QIANA Inhibitors Allergy Mild Unknown Verified 09/05/22 15:18 Review of Systems Review of Systems: All systems reviewed & are unremarkable except as noted in HPI and below PMFSH Past Medical History Medical History (Updated 09/05/22 @ 19:04 by Ninfa Jorgensen III, DO) Chronic venous stasis dermatitis COPD (chronic obstructive pulmonary disease) Depression Hyperglycemia Hypothyroidism (acquired) Kidney stones Right kidney stone December 2018 Rheumatoid arthritis Surgical History Surgical History History of section X1 History of cholecystectomy History of evacuation of hematoma Of lateral thigh 2013 Status post cataract extraction of both eyes with insertion of intraocular lens 2003 Family History Family History Sibling Patient's sister is in good health Mother Diabetes mellitus, Onset Age: 41 Father Heart attack Cardiovascular disease Social History Social History Social History: Primary care physician: Dr. Henry Hinojosa Code status: DNR/DNI Medical POA: Fatemeh Pittman (daughter) Smoking packs per day: 1 Smoking cigarettes per day: 20.0 Years smoked: 70 Smoking pack-years: 70.00 Smoking status: Current every day smoker Tobacco type: cigarettes Second hand tobacco smoke exposure: No Alcohol intake: never Substance use: never Additional living arrangements comments: The patient has been since 2013. She lives in a trailer park. She still drives. She has 1 daughter. 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 Gender identity (if verbalized by the patient): Female Spiritual care concerns: No Exam Const: General: healthy appearing and no acute distress Nutritional Appearance: obese Orientation/consciousness: patient oriented x3 Limitations: no limitations HENMT: Mouth: Yes Normal oral and palatal mucosa present Eyes: Conjunctivae: conjunctivae normal EOM: EOMs intact bilaterally Neck: Neck: normal visual inspection, no lymphadenopathy and no meningeal signs Resp: Effort & Inspection: normal respiratory effort Auscultation: clear to auscultation bilaterally Cardio: Rate: regular rate Rhythm: regular rhythm GI: GI Palp: Yes Soft to palpation Auscultation: normal bowel sounds Other: mild tendernes around large umbilical hernia but no signs of strangulation Skin: General skin exam: normal color Wounds: no wounds Neuro: General: patient oriented x3, moves all extremities and no focal motor deficits Speech: normal speech Extrem: General: normal to inspection and no clubbing, cyanosis or edema Psych: Mental Status: mental status grossly normal Affect: normal affect Procedures Other Procedure Procedure 1: Other Procedure: pt given Morphine 4 mg IVP getle pressure appled to hernia while pt in supine position, hernia easily reduced. Pt tolerated well. Course Course Emergency Course: discussed with dr garcia, said try to reduce hernia and NGT and admit for obs. get CBC and lactate in am and he will see pt. Vital Signs Vital signs: Vital Signs Temperature 97.7 F 09/05/22 12:01 Pulse Rate 71 09/05/22 12:01 Respiratory Rate 16 09/05/22 12:
[2022-09-05] MEDS: ONDANSETRON INJ 4 MG/2 ML VIAL IV PUSH (16:16)
[2022-09-05 16:38] LABS: Appearance Urine Clear (Clear); Bilirubin Urine 2+ (Negative); Blood Urine Negative (Negative); Color Urine Yellow (Yellow); Glucose Urine UA Negative (Negative); Ketones Urine 1+ mg/dL (Negative); Leukocyte Esterase Ur Negative LEU/UL (Negative); Nitrate Urine Negative (Negative); Protein Urine 1+ mg/dL (Negative); pH Urine 5.5 (5.0-9.0)
[2022-09-05 16:39] LABS: Mucus Urine Heavy /lpf; Squamous Epithelial Cell Urine Rare /hpf (Few); WBC Urine 0-3 /hpf
[2022-09-05 16:43] LABS: Add Urine Microscopic? YES
[2022-09-05] MEDS: MORPHINE SULFATE (*CRX) 4 MG/ML INJ IV PUSH (18:01)
[2022-09-05 18:34] LABS: SARS-CoV-2 RNA PCR Negative
--- NOTE | 2022-09-05 20:30 | PM.IMHP ---
H&P: HPI History of Present Illness Date/Time: 09/05/22 20:30 Chief Complaint: Abdominal pain. Narrative: This is an 82-year-old female with hypertension, hypothyroidism, GERD, and COPD presented to the emergency department via EMS from home for evaluation of abdominal pain. She is not a great historian but from what I can gather she has been suffering from diarrhea for several weeks and in fact she was seen emergency department on 08/29/2022 for evaluation of the same. She was given a dose of Imodium and there were attempts to obtain stool for C diff and cultures however she had no further loose stools while in the ED. She continues to have intermittent diarrhea since that time though she has difficulties qualifying and quantifying. The last several days she has had increasing abdominal pain around an umbilical hernia and she came into the ER today for evaluation. Unfortunately she is not able to really describe the pain but she was able to tell me that it does not radiate. She has also had pretty significant nausea but no vomiting. CT of the abdomen and pelvis done on arrival showed evidence of small-bowel obstruction with a transition point at the short loop of the small bowel herniating into an umbilical hernia, there were concerns for possible area of incarceration or ischemia. An NG tube has since been inserted and the hernia was able to be reduced. She is feeling a lot better at the time my evaluation though she admits that she is quite anxious to be here. Dark brown/ red particulate matter is noted to be coming from the NG tube and with further questioning she denies dark stools and bright red blood in the stools. She has not had epigastric pain, bloating, belching, and she denies history of peptic ulcers. Review of Systems Review of Systems: Twelve systems were reviewed. No fever, chills, or sweats. No cold or flu symptoms. She has not eaten for a couple of days due to the pain. She has had significant nausea but no vomiting despite trying to induce emesis. No chest pain or shortness of breath. No cough. She denies dysuria. Except as documented, all other systems were reviewed and are negative [facility] Past Medical History Medical History (Updated 09/05/22 @ 22:08 by Paula Herron PA-C) Chronic venous stasis dermatitis COPD (chronic obstructive pulmonary disease) Depression Gastroesophageal reflux disease Hyperglycemia Hypertension Hypothyroidism (acquired) Kidney stones Right kidney stone December 2018 Rheumatoid arthritis Surgical History Surgical History History of section X1 History of cholecystectomy History of evacuation of hematoma Of lateral thigh 2013 Status post cataract extraction of both eyes with insertion of intraocular lens 2003 Family History Family History Sibling Patient's sister is in good health Mother Diabetes mellitus, Onset Age: 41 Father Heart attack Cardiovascular disease Social History Social History (Updated 09/05/22 @ 22:02 by Paula Herron PA-C) Social History: Primary care physician: Dr. Henry Hinojosa Code status: DNR/DNI Medical POA: Fatemeh Pittman (daughter). Alternate surrogate decision maker: Karuna Stone, livestock breeder. Smoking packs per day: 1 Smoking cigarettes per day: 20.0 Years smoked: 70 Smoking pack-years: 70.00 Smoking status: Former smoker Tobacco type: cigarettes Second hand tobacco smoke exposure: No Alcohol intake: never Substance use: never Additional living arrangements comments: The patient has been since 2013. She lives in a trailer park and she has a 24 hour livestock breeder that lives with her named Karuna. 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 Spiritual care concerns: No Meds Home Medications and Allergies Home Medications Me
[2022-09-05] MEDS: LACTATED RINGERS 1,000 ML 125 ML IV CONT (22:55)
[2022-09-05] MEDS: metroNIDAZOLE 500 MG/ISO 100ML 500 MG/100 ML BAG 100 MG IVPB (22:56)
[2022-09-05] MEDS: PANTOPRAZOLE SODIUM IV 40 MG VIAL IV PUSH (22:56)
[2022-09-06 00:15] LABS: Hematocrit 38.2 % (37.0-47.0); Hemoglobin 13.2 g/dL (12.0-15.0)
[2022-09-06 00:28] LABS: INR 1.2; Prothrombin Time 14.2 Seconds (11.1-14.7)
[2022-09-06 06:00] VITALS: BP 128/61; PULSE 60; RESP 16; TEMP 36.2; O2SAT 100
[2022-09-06 06:59] LABS: Hematocrit 42.2 % (37.0-47.0); Hemoglobin 13.1 g/dL (12.0-15.0); Mean Corpuscular Volume 96.6 fl (80-100); Mean Platelet Volume 12.5 fl (7.4-10.4); Platelet Count Result 315 k/mm3 (150-375); Red Blood Count 4.37 M/mm3 (4.2-5.4); Red Cell Distribution Width 16.4 % (11.5-14.5); White Blood Count 8.3 K/mm3 (4.5-10.0)
[2022-09-06] MEDS: metroNIDAZOLE 500 MG/ISO 100ML 500 MG/100 ML BAG 100 MG IVPB ×3 (07:06→21:51)
[2022-09-06] MEDS: LACTATED RINGERS 1,000 ML 125 ML IV CONT ×2 (07:15→19:20)
[2022-09-06 07:29] LABS: Alanine Aminotransferase 17 U/L (6-35); Albumin Level 2.9 g/dL (3.5-5.1); Alkaline Phosphatase 95 U/L (38-126); Anion Gap 12 mmol/L (8-16); Aspartate Amino Transferase 18 U/L (14-36); Bilirubin,Total 0.5 mg/dL (0.2-1.3); Blood Urea Nitrogen 29 mg/dL (7-17); Calcium 8.5 mg/dL (8.4-10.2); Carbon Dioxide 20 mmol/L (22-30); Chloride 107 mmol/L (98-107); Estimated CRCL calculation 32 ml/min; Estimated Glomerular Filt Rate 43; Glucose 85 mg/dL (65-110); Magnesium 1.5 mg/dL (1.6-2.3); Potassium 3.8 mmol/L (3.4-5.0); Sodium 139 mmol/L (137-145)
[2022-09-06 07:44] LABS: Toxigenic C. Diff NEGATIVE (NEGATIVE)
[2022-09-06 08:31] LABS: Free T4 Free Thyroxine Reflex 1.44 ng/dL (0.78-2.19)
[2022-09-06 09:33] LABS: Hematocrit 35.9 % (37.0-47.0); Hemoglobin 12.1 g/dL (12.0-15.0)
[2022-09-06 09:35] LABS: Total Triiodothyronine (T3) 0.56 NG/ML (0.97-1.69)
[2022-09-06] MEDS: PANTOPRAZOLE SODIUM IV 40 MG VIAL IV PUSH ×2 (10:01→20:17)
--- NOTE | 2022-09-06 11:06 | PM.CNGS ---
Assessment and Plan Assessment and plan (1) Incarcerated umbilical hernia: Code(s): K42.0 - Umbilical hernia with obstruction, without gangrene Status: Acute Assessment and Plan: CT reviewed and discussed with the patient in detail. This showed an umbilical hernia containing a loop of small bowel that was incarcerated with a secondary small bowel obstruction. The hernia was reduced in the ER. Since then, her bowels have been moving and her abdominal pain has improved. She is no longer having any nausea. Her umbilical hernia is still reducible on my exam. We discussed both conservative and surgical treatment options. Since she did have an incarcerated hernia with bowel, it would be reasonable to consider surgical repair eventually if she was interested. At this time, she is adamant about avoiding any surgery and trying to conservatively treat and monitor for now. We will remove the NG tube and start clear liquids. I have also ordered an abdominal binder to hopefully help prevent future issues with incarceration. I educated her on signs of incarceration and strangulation and when to present to the ER. I also showed her how to gently massage her hernia to reduce this at home when needed. Will continue to monitor with serial abdominal exams. No plans for surgery at this time. (2) Small bowel obstruction: Code(s): K56.609 - Unspecified intestinal obstruction, unspecified as to partial versus complete obstruction Status: Acute Assessment and Plan: Appears this was secondary to the loops of small bowel in the umbilical hernia. Resolved after umbilical hernia was reduced. She is passing gas and has had at least 7 bowel movements overnight and this morning. Will remove the NG tube and start clear liquids. (3) GI bleeding: Code(s): K92.2 - Gastrointestinal hemorrhage, unspecified Status: Acute Assessment and Plan: Concern of peptic ulcer disease on CT and she has had dark coffee-ground output from her NG tube. Currently on BID IV Protonix 40 mg and GI has been consulted. H/H stable. (4) Abnormal CT of the abdomen: Code(s): R93.5 - Abnormal findings on diagnostic imaging of other abdominal regions, including retroperitoneum Status: Acute Assessment and Plan: CT suggested wall thickening of the gastric pylorus and proximal duodenum and inflammatory stranding surrounding the head of the pancreas, appears consistent with peptic ulcer disease. They are also unable to rule out acute on chronic interstitial pancreatitis. Lipase was checked and normal. Continue PPI and await GI consultation. (5) Gastroesophageal reflux disease: Code(s): K21.9 - Gastro-esophageal reflux disease without esophagitis Status: Acute Assessment and Plan: She was taking Protonix orally at home and has been switched to Protonix IV 40 mg BID due to the concern of peptic ulcer disease. GI consulted. (6) Diarrhea: Code(s): R19.7 - Diarrhea, unspecified Status: Acute Assessment and Plan: Unclear etiology. She has had diarrhea intermittently for at least the last 7 weeks according to the electronic medical record. Stool studies were just done on 08/30/22 and were all negative. Cdiff negative. GI has been consulted, will await their recommendations. (7) Hypertension: Code(s): I10 - Essential (primary) hypertension Status: Acute (8) Hypothyroidism (acquired): Code(s): E03.9 - Hypothyroidism, unspecified Status: Chronic (9) Chronic obstructive pulmonary disease with hypoxia: Code(s): J44.9 - Chronic obstructive pulmonary disease, unspecified; R09.02 - Hypoxemia Status: Acute Assessment and Plan: Long history of smoking, but (10) Lesion of left [place] kidney: Code(s): N28.9 - Disorder of kidney and ureter, unspecified Status: Acute Assessment and Plan: Noted on CT and in comparison to a CT scan of the abdomen/pelvis
--- NOTE | 2022-09-06 13:40 | WPDGICN ---
Assessment and Plan Assessment and plan (1) Small bowel obstruction: Code(s): K56.609 - Unspecified intestinal obstruction, unspecified as to partial versus complete obstruction Status: Acute Assessment and Plan: I believe that her obstruction has resolved. I will get a KUB before removing her NG tube. (2) Incarcerated umbilical hernia: Code(s): K42.0 - Umbilical hernia with obstruction, without gangrene Status: Acute Assessment and Plan: For now the hernia is resolved having been reduced manually. (3) GI bleeding: Code(s): K92.2 - Gastrointestinal hemorrhage, unspecified Status: Acute Assessment and Plan: There was some but not a large amount of blood in her NG tube. Will schedule her for EGD to be done tomorrow morning. Hopefully we can remove her NG tube this evening. (4) Abnormal CT of the abdomen: Code(s): R93.5 - Abnormal findings on diagnostic imaging of other abdominal regions, including retroperitoneum Status: Acute Assessment and Plan: CT scan shows: 1. Small bowel obstruction with transition point at a short loop of small bowel herniating into an umbilical hernia. There is wall thickening of the herniated segment as well as a short segment of the more distal small bowel which suggests possibility of incarceration/ischemia. 2. Wall thickening of the gastric pylorus and proximal duodenum and inflammatory stranding surrounding the head of the pancreas. There appears to be ulceration at least at the gastric pylorus potentially also at the proximal duodenum which suggests this could be related peptic ulcer disease. There are however calcifications at the head of the pancreas and acute pancreatitis on an earlier CT dated 03/14/2013 which suggests this could be related to acute on chronic interstitial pancreatitis. Could not exclude both processes occurring simultaneously. Correlate with amylase and lipase levels and consider further evaluation with endoscopy when clinically appropriate. This and the small bowel findings were discussed with Dr. Jorgensen at 4:40 PM. 3. Increase in size of a now 12 mm indeterminate left renal lesion which could represent a proteinaceous/hemorrhagic cyst or solid renal cell carcinoma. Would recommend follow-up pre and postcontrast MRI or CT. EGD will be done tomorrow. GI Consult Note Consult date/time: 09/06/22 13:40 HPI: Arielle Pittman is a 82 year old female was admitted yesterday when she presented to the emergency room with abdominal pain. She recently had been having diarrhea and in fact had visited the emergency room last week with those complaints. She has been nauseated. CT scan of the abdomen showed evidence of small-bowel obstruction with small bowel herniating into an umbilical hernia. NG tube is in place. Some blood was seen in the NG tube, mostly dark red material. She denies any recent blood her stools but admits that she has had a peptic ulcer in the past. After her hernia was manually reduced she states she has felt much better. She is no longer having pain and is hungry. Review of Systems Review of Systems: All systems reviewed & are unremarkable except as noted in HPI and below PMFSH Past Medical History Medical History Chronic venous stasis dermatitis COPD (chronic obstructive pulmonary disease) Depression Gastroesophageal reflux disease Hyperglycemia Hypertension Hypothyroidism (acquired) Kidney stones Right kidney stone December 2018 Rheumatoid arthritis Surgical History Surgical History History of section X1 History of cholecystectomy History of evacuation of hematoma Of lateral thigh 2013 Status post cataract extraction of both eyes with insertion of intraocular lens 2003 Family History Family History Sibling Patient's s
[2022-09-06 14:00] VITALS: BP 129/50; PULSE 60; RESP 16; TEMP 36.2; O2SAT 100
--- NOTE | 2022-09-06 14:54 | PM.IMPN ---
Progress Note: A&P Assessment and Plan (1) Small bowel obstruction: Code(s): K56.609 - Unspecified intestinal obstruction, unspecified as to partial versus complete obstruction Status: Acute (2) Strangulated umbilical hernia: Code(s): K42.0 - Umbilical hernia with obstruction, without gangrene Status: Deleted (3) GI bleeding: Code(s): K92.2 - Gastrointestinal hemorrhage, unspecified Status: Acute (4) Lesion of left [place] kidney: Code(s): N28.9 - Disorder of kidney and ureter, unspecified Status: Acute (5) Hypertension: Code(s): I10 - Essential (primary) hypertension Status: Acute (6) Hypothyroidism (acquired): Code(s): E03.9 - Hypothyroidism, unspecified Status: Chronic (7) Gastroesophageal reflux disease: Code(s): K21.9 - Gastro-esophageal reflux disease without esophagitis Status: Acute Plan The patient presented to the emergency department today via EMS from home for evaluation of abdominal pain for several days and with reports of diarrhea. CT of the abdomen pelvis showed evidence of small-bowel obstruction and possible incarceration within an umbilical hernia. An NG tube has since been inserted and the hernia was able to be reduced and her pain has significantly improved. She is now noted to have coffee-ground like output from her NG tube and there are concerns on the CT scan for possible peptic ulcer disease thus will consult Gastroenterology. They are also findings of possible pancreatitis and amylase and lipase levels have been ordered and are pending. Dr. Hernandez was consulted by the ED physician and his recommendations are appreciated. The patient's labs were reviewed and they have been stable. Hemoglobin and hematocrit will be trended. She has been started on IV Protonix 40 milligrams b.i.d. Pt can have NG tube removed pt seen by surgery team. Pt stating to have bowel movements. Pt to start oral protonix pt having some GI bleeding in her NG tube. Pt to continue iv rocephin and iv flagyl, stools are still loose follow stool cultures GI and surgery rounding. Subjective Date/time seen: 09/06/22 14:54 82-year-old female with hypertension, hypothyroidism, GERD, and COPD presented to the emergency department via EMS from home for evaluation of abdominal pain. She is not a great historian but from what I can gather she has been suffering from diarrhea for several weeks and in fact she was seen emergency department on 08/29/2022 for evaluation of the same. She was given a dose of Imodium and there were attempts to obtain stool for C diff and cultures however she had no further loose stools while in the ED. Pt having bowel movement can have NG removed as per surgery team. PT will benefit from EGD tomorrow as per GI team as she is having some blood in her NG tube. Exam Resp: Other: Respirations are nonlabored. Lung sounds are diminished at the bases but are otherwise clear to auscultation. Cardio: Other: Regular rate and rhythm with normal S1-S2. GI: Other: Abdomen is obese with hypoactive bowel sounds. There is a soft supraumbilical hernia which is now reducible. BS are present. Skin: Other: Warm and dry. She has chronic venous stasis changes of the lower legs bilaterally. Neuro: Other: Alert. Cranial nerves 2-12 are grossly intact. No gross focal deficits schedule conversation. Extrem: Other: No cyanosis or clubbing. Feet are cool with the managed pedal pulses. Capillary refill approximately 2 seconds. Trace pretibial edema. No palpable knots or cords. Mildly tender to palpation over the calves. Psych: Other: Pleasant and cooperative. Appropriate mood, anxious. Objective Data Vital Signs Vital Signs: Vital Signs - 24 hr 09/05/22 15:17 09/05/22 15:16 09/05/22 15:17 Temperature 36.7 C Pulse Rate 67 67 67 Respiratory Rate 15 20 15 Blood Pressure 162/98 H 162/98 H Pulse Oximetry 98 Oxygen Deliv
[2022-09-06] MEDS: HYDROGEN PEROXIDE 3% SOLN(*SP) 473 ML BOTTLE (16:02)
[2022-09-06 16:33] LABS: Hematocrit 35.5 % (37.0-47.0); Hemoglobin 12.1 g/dL (12.0-15.0)
[2022-09-06 22:00] VITALS: BP 139/51; PULSE 55; RESP 16; TEMP 36.4; O2SAT 97
[2022-09-07] VITALS (7 sets, daily range): BP systolic 111–158; BP diastolic 52–79; PULSE 50–58; RESP 14–22; TEMP 35.9–36.3; O2SAT 96–100
[2022-09-07] MEDS: metroNIDAZOLE 500 MG/ISO 100ML 500 MG/100 ML BAG 100 MG IVPB ×3 (05:27→21:10)
[2022-09-07] MEDS: LACTATED RINGERS 1,000 ML 125 ML IV CONT (05:27)
[2022-09-07 06:56] LABS: Hematocrit 32.5 % (37.0-47.0); Hemoglobin 10.9 g/dL (12.0-15.0); Mean Corpuscular HGB Conc 33.5 g/dl (32-36); Mean Corpuscular Hemoglobin 29.5 pg (26-34); Mean Corpuscular Volume 87.8 fl (80-100); Mean Platelet Volume 12.6 fl (7.4-10.4); Platelet Count Result 293 k/mm3 (150-375); Red Cell Distribution Width 15.5 % (11.5-14.5); White Blood Count 7.3 K/mm3 (4.5-10.0)
[2022-09-07 07:02] LABS: Anion Gap 7 mmol/L (8-16); Blood Urea Nitrogen 23 mg/dL (7-17); Calcium 7.6 mg/dL (8.4-10.2); Carbon Dioxide 20 mmol/L (22-30); Chloride 109 mmol/L (98-107); Estimated CRCL calculation 32 ml/min; Estimated Glomerular Filt Rate 43; Glucose 75 mg/dL (65-110); Magnesium 1.3 mg/dL (1.6-2.3); Sodium 136 mmol/L (137-145)
[2022-09-07] MEDS: PANTOPRAZOLE SODIUM IV 40 MG VIAL IV PUSH ×2 (09:38→20:12)
[2022-09-07] MEDS: MAGNESIUM SULFATE 3GM/D5W100ML 3 GM/100 ML BAG IVPB (09:41)
--- NOTE | 2022-09-07 12:31 | PM.PNGS ---
Progress Note: A&P Assessment and Plan (1) Incarcerated umbilical hernia: Code(s): K42.0 - Umbilical hernia with obstruction, without gangrene Status: Acute Assessment and Plan: Umbilical hernia still soft and reducible on exam today. Continuing to monitor with conservative management. Continue wearing abdominal binder with activity during the day. Educated her again on how to use the binder and how to gently manually reduce her umbilical hernia. (2) Small bowel obstruction: Code(s): K56.609 - Unspecified intestinal obstruction, unspecified as to partial versus complete obstruction Status: Acute Assessment and Plan: Secondary to umbilical hernia. Resolved after hernia was reduced. She is NPO for her EGD, but okay from our standpoint to start advancing her diet after the procedure. (3) GI bleeding: Code(s): K92.2 - Gastrointestinal hemorrhage, unspecified Status: Acute Assessment and Plan: Concern of peptic ulcer disease on CT and she has had some dark coffee-ground output from her NG tube. Currently on BID IV Protonix 40 mg. Hgb down from 12 to 10.9 today. GI planning EGD today. (4) Abnormal CT of the abdomen: Code(s): R93.5 - Abnormal findings on diagnostic imaging of other abdominal regions, including retroperitoneum Status: Acute Assessment and Plan: CT suggested wall thickening of the gastric pylorus and proximal duodenum and inflammatory stranding surrounding the head of the pancreas, appears consistent with peptic ulcer disease. They are also unable to rule out acute on chronic interstitial pancreatitis. Lipase was checked and normal. Continue PPI and EGD scheduled today. (5) Gastroesophageal reflux disease: Code(s): K21.9 - Gastro-esophageal reflux disease without esophagitis Status: Acute (6) Diarrhea: Code(s): R19.7 - Diarrhea, unspecified Status: Acute Assessment and Plan: Diarrhea improving. Cdiff negative. Stool studies from 08/30 negative. (7) Hypertension: Code(s): I10 - Essential (primary) hypertension Status: Acute (8) Hypothyroidism (acquired): Code(s): E03.9 - Hypothyroidism, unspecified Status: Chronic (9) Chronic obstructive pulmonary disease with hypoxia: Code(s): J44.9 - Chronic obstructive pulmonary disease, unspecified; R09.02 - Hypoxemia Status: Acute (10) Lesion of left [place] kidney: Code(s): N28.9 - Disorder of kidney and ureter, unspecified Status: Acute Assessment and Plan: Noted on CT and in comparison to a CT scan of the abdomen/pelvis from 2019, the left renal lesion has increased in size to 12 mm. The radiologist suggests this could be a cystic lesion or solid renal cell carcinoma. Recommended follow-up pre and postcontrast MRI or CT, which could be done as an outpatient. Plan I have discussed the patient's case and plan of care with Dr. Hernandez. Subjective Subjective Date/Time Seen: 09/07/22 09:31 Patient reports: no new complaints, diarrhea (yesterday, no BMs today) and afebrile Interval history: Patient seen and examined. She is confused and has memory loss. She does not remember what we spoke about yesterday and does not recall seeing me yesterday. She answers orientation questions appropriately and is oriented x 3. She is NPO and forgot why she can't drink. She is scheduled for an EGD today. She denies any abdominal pain, nausea, or vomiting. She thinks her diarrhea has slowed down and has not had any more liquid stools overnight. Review of Systems Review of Systems: All systems reviewed & are unremarkable except as noted in HPI and below Exam Const: General: comfortable and no acute distress Nutritional Appearance: overweight Orientation/consciousness: patient oriented x3 and confusion GI: Inspection: non-distended GI Palp: Yes Soft to palpation, No Tenderness to palpation present (GI), No Guarding due to
--- NOTE | 2022-09-07 12:43 | PM.IMPN ---
Progress Note: A&P Assessment and Plan (1) Small bowel obstruction: Code(s): K56.609 - Unspecified intestinal obstruction, unspecified as to partial versus complete obstruction Status: Acute (2) Strangulated umbilical hernia: Code(s): K42.0 - Umbilical hernia with obstruction, without gangrene Status: Deleted (3) GI bleeding: Code(s): K92.2 - Gastrointestinal hemorrhage, unspecified Status: Acute (4) Lesion of left [place] kidney: Code(s): N28.9 - Disorder of kidney and ureter, unspecified Status: Acute (5) Hypertension: Code(s): I10 - Essential (primary) hypertension Status: Acute (6) Hypothyroidism (acquired): Code(s): E03.9 - Hypothyroidism, unspecified Status: Chronic (7) Gastroesophageal reflux disease: Code(s): K21.9 - Gastro-esophageal reflux disease without esophagitis Status: Acute Plan The patient presented to the emergency department today via EMS from home for evaluation of abdominal pain for several days and with reports of diarrhea. CT of the abdomen pelvis showed evidence of small-bowel obstruction and possible incarceration within an umbilical hernia. # small-bowel obstruction: With transition point at short loop of small bowel herniating into an umbilical hernia. There is wall thickening of the herniated segment as well as short segment of the more distal small bowel with suggest possibility of incarceration/ischemia. The hernia was reduced with significant improvement in pain. NG tube was placed in the ER. Coffee-ground NG tube noted. General surgery consulted. Follow-up x-ray abdomen with dilated small bowel with interval improvement consistent with adynamic ileus versus small-bowel obstruction # Incarcerated umbilical hernia: Use of abdominal binder recommended by General surgery. Will need surgical reviewed eventually his she is interested. # coffee-ground NG output: GI has been consulted and plan for EGD . CT scan with wall thickening of the gastric pylorus and proximal duodenum and inflammatory stranding surrounding the head of the pancreas. There appears to be ulceration at least the gastric pylorus potentially also at the proximal duodenum which suggest this could be related to peptic ulcer disease. on PPI. # abnormal CT pancreas: Calcification at the head of the pancreas. [place] his lipase was normal # anemia mild drop today could be due to IV fluid. Will continue to monitor # diarrhea: On Rocephin and Flagyl for colitis C diff negative # uterine fibroid # bilateral renal cyst: Right kidney 1.5 cm left kidney slightly increased to 1.2 cm. Suggest follow-up with pre and post-contrast MRI or CT. this can be done as an outpatient basis # bilateral adrenal masses likely adenomas #DVT prophylaxis SCDs # full code Subjective Date/time seen: 09/07/22 12:43 Interval history: Feeling okay. States she is going for an EGD. Denies any abdominal pain nausea vomiting. No flat us Review of Systems Review of Systems: All systems reviewed & are unremarkable except as noted in HPI and below Exam Narrative: GENERAL: The patient is well developed, not in acute distress HEENT: Nonicteric sclerae, PERRLA, EOMI. Oropharynx clear. Moist mucous membranes. Conjunctivae appear well perfused. CHEST: Chest wall is nontender. HEART: Regular rate and rhythm without murmur, rubs, or gallops LUNGS: Clear to auscultation bilaterally. no respiratory distress ABDOMEN: Soft, positive bowel sounds, non-tender, no organomegaly. umbilical hernia noted. Abdominal binder in place SKIN: No rash, no excessive bruising, petechiae, or purpura. NEUROLOGIC: Cranial nerves II-XII intact, alert and oriented x 3, no gross motor deficits EXTREMITIES: no edema, cyanosis or clubbing Objective Data Vital Signs Vital Signs: Vital Signs - 24 hr 09/06/22 14:00 09/06/22 20:00 09/06/22 22:00 Temperature 97.2 F L 97.5 F L Pulse Rate 60 55
[2022-09-07] MEDS: LACTATED RINGERS 1,000 ML 150 ML IV CONT (13:28)
--- NOTE | 2022-09-07 13:30 | WPDANESEPPF ---
Anes - Initial Pre Proc Eval Procedure: Operation Date: 09/07/22 14:30 Proposed Procedures p Esophagogastroduodenoscopy - Chele Hernandez MD Date/Time: 09/07/22 13:30 Surgeon: Aden Mandel MD Pre Op Diagnosis: small bowel obstruction Patient Data Age: 82 Gender: F Height: 1.63 m Weight: 79.6 kg Last Vital Signs Temp 97.1 F L 09/07/22 13:26 Pulse 58 L 09/07/22 13:26 Resp 16 09/07/22 13:26 BP 158/62 H 09/07/22 13:26 Pulse Ox 99 09/07/22 13:26 O2 Del Method Room Air 09/07/22 13:26 Allergies Allergy/AdvReac Type Severity Reaction Status Date / Time Penicillins Allergy Severe Hives Verified 09/07/22 13:22 QIANA Inhibitors Allergy Mild Unknown Verified 09/07/22 13:22 Home Medications Medication Instructions Recorded Confirmed Type albuterol sulfate 90 mcg/actuation 2 puff inhalation Q6HRT PRN 09/06/21 Rx aerosol inhaler (Proventil HFA) shortness of breath or wheezing #20.1 grams ropinirole 1 mg tablet See Rx Instructions .Route 10/13/21 Rx .COMPLEX #270 tabs levothyroxine 150 mcg tablet See Rx Instructions .Route 06/10/22 Rx (Euthyrox) .COMPLEX #90 tabs losartan 50 mg tablet 50 mg PO DAILY 30 days #90 tabs 06/10/22 Rx pantoprazole 40 mg tablet,delayed See Rx Instructions .Route 06/10/22 Rx release .COMPLEX #90 tabs meclizine 25 mg tablet 25 mg PO TID PRN dizziness #90 tabs 08/15/22 Rx diphenoxylate-atropine 2.5 1 tablet PO QID PRN diarrhea #20 08/19/22 Rx mg-0.025 mg tablet (Lomotil) tabs Laboratory Tests 09/06/22 09/07/22 09/07/22 16:13 06:20 06:20 WBC 7.3 K/mm3 K/mm3 (4.5-10.0) RBC 3.70 M/mm3 L M/mm3 (4.2-5.4) Hgb 12.1 g/dL g/dL 10.9 g/dL L g/dL (12.0-15.0) (12.0-15.0) Hct 35.5 % L % 32.5 % L % (37.0-47.0) (37.0-47.0) MCV 87.8 fl D fl (80-100) MCH 29.5 pg pg (26-34) MCHC 33.5 g/dl g/dl (32-36) RDW 15.5 % H % (11.5-14.5) Plt Count 293 k/mm3 k/mm3 (150-375) MPV 12.6 fl H fl (7.4-10.4) Sodium 136 mmol/L L mmol/L (137-145) Potassium 3.0 mmol/L L mmol/L (3.4-5.0) Chloride 109 mmol/L H mmol/L (98-107) Carbon Dioxide 20 mmol/L L mmol/L (22-30) Anion Gap 7 mmol/L L mmol/L (8-16) BUN 23 mg/dL H mg/dL (7-17) Creatinine 1.20 mg/dL H mg/dL (0.7-1.0) Estim Creat Clear Calc 32 ml/min ml/min Estimated GFR 43 L (59 - ) Glucose 75 mg/dL mg/dL (65-110) Calcium 7.6 mg/dL L mg/dL (8.4-10.2) Magnesium 1.3 mg/dL L mg/dL (1.6-2.3) Patient hx anesthesia problems: none Family hx anesthesia problems: none Results Review: All pre-operative results and documents have been reviewed as part of the pre-operative evaluation. [facility] Past Medical History Medical History Chronic venous stasis dermatitis COPD (chronic obstructive pulmonary disease) Depression Gastroesophageal reflux disease Hyperglycemia Hypertension Hypothyroidism (acquired) Kidney stones Right kidney stone December 2018 Rheumatoid arthritis Surgical History Surgical History History of section X1 History of cholecystectomy History of evacuation of hematoma Of lateral thigh 2013 Status post cataract extraction of both eyes with insertion of intraocular lens 2003 Family History Family History Sibling Patient's sister is in good health Mother Diabetes mellitus, Onset Age: 41 Father Heart attack Cardiovascular disease Social History Social History Social History: Primary care physician: Dr. Henry Hinojosa Code status: DNR/DNI Medical POA: Fatemeh Toya (daughter). Altern
[2022-09-07] MEDS: POTASSIUM CHLORIDE 20 MEQ PACKET (FOR LIQUID) 40 MEQ PO (17:00)
[2022-09-07] MEDS: LACTATED RINGERS 1,000 ML 75 ML IV CONT (18:44)
[2022-09-08] MEDS: MELATONIN 5 MG TABLET PO (00:17)
[2022-09-08 06:00] VITALS: BP 139/66; PULSE 52; RESP 18; TEMP 36.1; O2SAT 97
[2022-09-08] MEDS: metroNIDAZOLE 500 MG/ISO 100ML 500 MG/100 ML BAG 100 MG IVPB (06:07)
[2022-09-08 07:12] LABS: Alanine Aminotransferase 15 U/L (6-35); Albumin Level 2.6 g/dL (3.5-5.1); Alkaline Phosphatase 81 U/L (38-126); Anion Gap 10 mmol/L (8-16); Aspartate Amino Transferase 20 U/L (14-36); Bilirubin,Total 0.3 mg/dL (0.2-1.3); Blood Urea Nitrogen 16 mg/dL (7-17); Calcium 7.5 mg/dL (8.4-10.2); Carbon Dioxide 22 mmol/L (22-30); Chloride 104 mmol/L (98-107); Estimated CRCL calculation 35 ml/min; Estimated Glomerular Filt Rate 48; Glucose 75 mg/dL (65-110); Magnesium 1.8 mg/dL (1.6-2.3); Potassium 3.6 mmol/L (3.4-5.0); Sodium 136 mmol/L (137-145)
[2022-09-08 07:13] LABS: Basophils Absolute Auto 0.1 K/mm3 (0.0-0.1); Basophils Percent Auto 0.8 % (0.2-1.2); Eosinophils Absolute Auto 0.2 K/mm3 (0-0.3); Eosinophils Percent Auto 2.6 % (0-4.4); Hemoglobin 11.6 g/dL (12.0-15.0); Immature Granulocyte Absolute 0.02 K/mm3 (0.00-0.031); Immature Granulocyte Percent A 0.3 % (0-0.5); Lymphocytes Absolute Auto 2.13 K/mm3 (0.9-3.2); Lymphocytes Percent Auto 27.6 % (18.3-44.2); Mean Corpuscular HGB Conc 34.1 g/dl (32-36); Mean Corpuscular Hemoglobin 30.3 pg (26-34); Mean Corpuscular Volume 88.8 fl (80-100); Mean Platelet Volume 12.3 fl (7.4-10.4); Monocytes Absolute Auto 0.5 K/mm3 (0.1-0.6); Monocytes Percent Auto 6.2 % (2.6-8.5); Neutrophils Absolute Auto 4.8 K/mm3 (1.3-6.7); Neutrophils Percent Auto 62.5 % (45.5-73.1); Platelet Count Result 285 k/mm3 (150-375); Red Blood Count 3.83 M/mm3 (4.2-5.4); Red Cell Distribution Width 15.5 % (11.5-14.5); White Blood Count 7.7 K/mm3 (4.5-10.0)
--- NOTE | 2022-09-08 07:18 | WPDGIPROGNO ---
Progress Note: A&P Assessment and Plan (1) Small bowel obstruction: Code(s): K56.609 - Unspecified intestinal obstruction, unspecified as to partial versus complete obstruction Status: Acute Assessment and Plan: Obstruction was resolved with reduction of her hernia. (2) Incarcerated umbilical hernia: Code(s): K42.0 - Umbilical hernia with obstruction, without gangrene Status: Acute Assessment and Plan: this is not giving her any difficulty at this time (3) GI bleeding: Code(s): K92.2 - Gastrointestinal hemorrhage, unspecified Status: Acute Assessment and Plan: EGD yesterday revealed a very large and deep duodenal ulcer, nearly 4 cm in diameter. Was no active bleeding or visible vessel. A specimen for H pylori was negative. Her counts have improved from yesterday, up to 11.6 today versus 10.9 yesterday (4) Abnormal CT of the abdomen: Code(s): R93.5 - Abnormal findings on diagnostic imaging of other abdominal regions, including retroperitoneum Status: Acute Assessment and Plan: CT scan shows: 1. Small bowel obstruction with transition point at a short loop of small bowel herniating into an umbilical hernia. There is wall thickening of the herniated segment as well as a short segment of the more distal small bowel which suggests possibility of incarceration/ischemia. 2.?Wall thickening of the gastric pylorus and proximal duodenum and inflammatory stranding surrounding the head of the pancreas. There appears to be ulceration at least at the gastric pylorus potentially also at the proximal duodenum which suggests this could be related peptic ulcer disease.?There are however calcifications at the head of the pancreas and acute pancreatitis on an earlier CT dated 03/14/2013 which suggests this could be related to acute on chronic interstitial pancreatitis. Could not exclude both processes occurring simultaneously. Correlate with amylase and lipase levels and consider further evaluation with endoscopy when clinically appropriate. This and the small bowel findings were discussed with Dr. Jorgensen at 4:40 PM. 3. Increase in size of a now 12 mm indeterminate left renal lesion which could represent a proteinaceous/hemorrhagic cyst or solid renal cell carcinoma. Would recommend follow-up pre and postcontrast MRI or CT. ?EGD revealed large duodenal ulcer and severe duodenitis. (5) Diarrhea: Code(s): R19.7 - Diarrhea, unspecified Status: Acute Assessment and Plan: She states that she has had diarrhea since she came here. She denies having it at home but is not certain. She does however take Lomotil at home p.r.n. Plan Cultures will be obtained. She had been empirically started on antibiotics in the emergency room. White blood count is normal, hence I do not think there is a need now for antibiotics I have advanced her diet. If her counts remain stable I think she will be discharged on b.i.d. pantoprazole. I would like to see her in the office in 3 weeks. Subjective Date/time seen: 09/08/22 07:18 she states that she ate dinner last night without difficulty. She has been having diarrhea which she states started after she got here. She is fairly certain it is not black in fact she said is a light brown and almost yellow color. Again that when over the findings of her EGD, a very large duodenal ulcer as well as erosive esophagitis. H pylori was negative. Review of Systems Review of Systems: All systems reviewed & are unremarkable except as noted in HPI and below Exam Const: General: alert Orientation/consciousness: patient oriented x3 Resp: Auscultation: clear to auscultation bilaterally Cardio: Rhythm: regular rhythm GI: Inspection: visible herniation GI Palp: Yes Soft to palpation, No Tenderness to palpation present (GI), Yes No hepatosplenomegaly present and Yes Hernia present ( reducible umbilical hernia) Auscultation: normal bowel sounds
[2022-09-08] MEDS: PANTOPRAZOLE SODIUM IV 40 MG VIAL IV PUSH ×2 (09:42→20:05)
[2022-09-08] MEDS: LACTATED RINGERS 1,000 ML 75 ML IV CONT (10:47)
--- NOTE | 2022-09-08 12:26 | PM.PNGS ---
Progress Note: A&P Assessment and Plan (1) Incarcerated umbilical hernia: Code(s): K42.0 - Umbilical hernia with obstruction, without gangrene Status: Acute Assessment and Plan: Umbilical hernia still soft and reducible on exam today. Continuing to monitor with conservative management. Continue wearing abdominal binder while up during the day with activity. Educated her again on how to use the binder and how to gently manually reduce her umbilical hernia. (2) Small bowel obstruction: Code(s): K56.609 - Unspecified intestinal obstruction, unspecified as to partial versus complete obstruction Status: Acute Assessment and Plan: Secondary to umbilical hernia. Resolved after hernia was reduced. Tolerating a low fiber diet. (3) Duodenal ulcer: Code(s): K26.9 - Duodenal ulcer, unspecified as acute or chronic, without hemorrhage or perforation Status: Acute Assessment and Plan: Duodenitis with a duodenal ulcer found on EGD yesterday. Continue PPI and management per GI. (4) Gastroesophageal reflux disease: Code(s): K21.9 - Gastro-esophageal reflux disease without esophagitis Status: Acute (5) Diarrhea: Code(s): R19.7 - Diarrhea, unspecified Status: Acute Assessment and Plan: Continues to have diarrhea. Stool studies from 08/30 negative. GI ordered more stool studies today. (6) Hypertension: Code(s): I10 - Essential (primary) hypertension Status: Acute (7) Hypothyroidism (acquired): Code(s): E03.9 - Hypothyroidism, unspecified Status: Chronic (8) Chronic obstructive pulmonary disease with hypoxia: Code(s): J44.9 - Chronic obstructive pulmonary disease, unspecified; R09.02 - Hypoxemia Status: Acute (9) Lesion of left [place] kidney: Code(s): N28.9 - Disorder of kidney and ureter, unspecified Status: Acute Assessment and Plan: Noted on CT and in comparison to a CT scan of the abdomen/pelvis from 2019, the left renal lesion has increased in size to 12 mm. The radiologist suggests this could be a cystic lesion or solid renal cell carcinoma. Recommended follow-up pre and postcontrast MRI or CT, which could be done as an outpatient. Plan I have discussed the patient's case and plan of care with Dr. Hernandez. Subjective Subjective Date/Time Seen: 09/08/22 12:26 Patient reports: no new complaints, tolerating a regular diet, flatus, diarrhea and afebrile Interval history: Patient seen and examined sitting in the chair eating lunch. Her only complaint is that her diarrhea seems worse again today. She denies any nausea, vomiting, or abdominal pain. No other complaints at this time. Review of Systems Review of Systems: All systems reviewed & are unremarkable except as noted in HPI and below Exam Const: General: comfortable, no acute distress and awake Orientation/consciousness: patient oriented x3 GI: Inspection: non-distended GI Palp: Yes Soft to palpation, No Tenderness to palpation present (GI), No Guarding due to palpation present (GI), Yes Hernia present (umbilical hernia with a bulge that is soft, reducible, and nontender) and No Rebound tenderness present Auscultation: normal bowel sounds Objective Data Vital Signs Vital Signs: Vital Signs - 24 hr 09/07/22 13:26 09/07/22 14:29 09/07/22 14:39 Temperature 97.1 F L Pulse Rate 58 L 52 L 52 L Respiratory Rate 16 18 18 Blood Pressure 158/62 H 120/53 L 111/52 L Pulse Oximetry 99 99 100 Oxygen Delivery Room Air Room Air Room Air 09/07/22 14:49 09/07/22 15:00 09/07/22 20:00 Temperature 96.9 F L Pulse Rate 50 L 50 L Respiratory Rate 20 20 Blood Pressure 113/79 153/60 H Pulse Oximetry 100 99 Oxygen Delivery Room Air Room Air 09/07/22 22:00 09/08/22 06:00 Temperature 96.7 F L 96.9 F L Pulse Rate 58 L 52 L Respiratory Rate 22 H 18 Blood Pressure 127/59 L 139/66 Pulse Oximetry 96 97 Oxygen Delivery
[2022-09-08 14:00] VITALS: BP 116/61; PULSE 61; RESP 18; TEMP 36.2; O2SAT 99
--- NOTE | 2022-09-08 14:48 | PM.IMPN ---
Progress Note: A&P Assessment and Plan (1) Small bowel obstruction: Code(s): K56.609 - Unspecified intestinal obstruction, unspecified as to partial versus complete obstruction Status: Acute (2) Strangulated umbilical hernia: Code(s): K42.0 - Umbilical hernia with obstruction, without gangrene Status: Deleted (3) GI bleeding: Code(s): K92.2 - Gastrointestinal hemorrhage, unspecified Status: Acute (4) Lesion of left [place] kidney: Code(s): N28.9 - Disorder of kidney and ureter, unspecified Status: Acute (5) Hypertension: Code(s): I10 - Essential (primary) hypertension Status: Acute (6) Hypothyroidism (acquired): Code(s): E03.9 - Hypothyroidism, unspecified Status: Chronic (7) Gastroesophageal reflux disease: Code(s): K21.9 - Gastro-esophageal reflux disease without esophagitis Status: Acute Plan The patient presented to the emergency department today via EMS from home for evaluation of abdominal pain for several days and with reports of diarrhea. CT of the abdomen pelvis showed evidence of small-bowel obstruction and possible incarceration within an umbilical hernia. # small-bowel obstruction: With transition point at short loop of small bowel herniating into an umbilical hernia. There is wall thickening of the herniated segment as well as short segment of the more distal small bowel with suggest possibility of incarceration/ischemia. The hernia was reduced with significant improvement in pain. NG tube was placed in the ER. Coffee-ground NG tube noted. General surgery consulted. Follow-up x-ray abdomen with dilated small bowel with interval improvement consistent with adynamic ileus versus small-bowel obstruction. Continue to wear abdominal binder in follow-up with surgery as outpatient basis # Incarcerated umbilical hernia: Use of abdominal binder recommended by General surgery. Will need surgical reviewed eventually his she is interested. # coffee-ground NG output: GI has been consulted and plan for EGD . CT scan with wall thickening of the gastric pylorus and proximal duodenum and inflammatory stranding surrounding the head of the pancreas. There appears to be ulceration at least the gastric pylorus potentially also at the proximal duodenum which suggest this could be related to peptic ulcer disease. on PPI. Status post EGD 09/07/2022: Reflux esophagitis grade 3 circumferential erosions/ ulcerations John Rodgers was present in the distal esophagus. The stomach at the body, cardia and fundus were examined and were normal with no ulcers or masses. Or cold forceps biopsies were taken from the antrum for rapid urease /TOMAS test. A single greater chronic ulcer measuring 40 mm was visualized in the duodenal bulb. Flat spots noted on the ulcer crater but no visible vessel or other area that could be intervened. Severe localized duodenitis was seen in the duodenal bulb. The duodenitis had severe erythematous and edematous changes. A few cold forceps biopsies were taken from the duodenal bulb. On PPI b.i.d. # abnormal CT pancreas: Calcification at the head of the pancreas. lipase was normal # anemia mild drop today could be due to IV fluid. Will continue to monitorH&H remained stable # diarrhea: On Rocephin and Flagyl for colitis C diff negative stool studies were ordered. Will stop her IV fluid today antibiotics has been stopped now # uterine fibroid # bilateral renal cyst: Right kidney 1.5 cm left kidney slightly increased to 1.2 cm. Suggest follow-up with pre and post-contrast MRI or CT. this can be done as an outpatient basis # bilateral adrenal masses likely adenomas #DVT prophylaxis SCDs # full code Subjective Date/time seen: 09/08/22 14:48 Interval history: no overnight events. Has multiple bowel movement yesterday. Denies any abdominal pain. EGD findings were noted. No nausea vomiting. Tolerating diet. Revie
[2022-09-08 22:00] VITALS: BP 113/47; PULSE 57; RESP 18; TEMP 36.4; O2SAT 96
[2022-09-08 23:40] VITALS: O2SAT 96
[2022-09-09 06:05] VITALS: BP 147/69; PULSE 64; RESP 18; TEMP 36.2; O2SAT 96
[2022-09-09] MEDS: LEVOTHYROXINE SODIUM 150 MCG TABLET PO (06:20)
[2022-09-09 06:39] LABS: Basophils Percent Auto 0.5 % (0.2-1.2); Eosinophils Absolute Auto 0.2 K/mm3 (0-0.3); Eosinophils Percent Auto 2.6 % (0-4.4); Hematocrit 35.3 % (37.0-47.0); Hemoglobin 12.1 g/dL (12.0-15.0); Immature Granulocyte Absolute 0.04 K/mm3 (0.00-0.031); Immature Granulocyte Percent A 0.5 % (0-0.5); Lymphocytes Absolute Auto 2.58 K/mm3 (0.9-3.2); Lymphocytes Percent Auto 31.4 % (18.3-44.2); Mean Corpuscular HGB Conc 34.3 g/dl (32-36); Mean Corpuscular Hemoglobin 29.8 pg (26-34); Mean Corpuscular Volume 86.9 fl (80-100); Mean Platelet Volume 12.2 fl (7.4-10.4); Monocytes Absolute Auto 0.6 K/mm3 (0.1-0.6); Monocytes Percent Auto 6.9 % (2.6-8.5); Neutrophils Absolute Auto 4.8 K/mm3 (1.3-6.7); Neutrophils Percent Auto 58.1 % (45.5-73.1); Platelet Count Result 310 k/mm3 (150-375); Red Blood Count 4.06 M/mm3 (4.2-5.4); Red Cell Distribution Width 15.7 % (11.5-14.5); White Blood Count 8.2 K/mm3 (4.5-10.0)
[2022-09-09 06:50] LABS: Alanine Aminotransferase 16 U/L (6-35); Albumin Level 2.8 g/dL (3.5-5.1); Alkaline Phosphatase 87 U/L (38-126); Anion Gap 6 mmol/L (8-16); Aspartate Amino Transferase 22 U/L (14-36); Bilirubin,Total 0.4 mg/dL (0.2-1.3); Blood Urea Nitrogen 15 mg/dL (7-17); Calcium 7.8 mg/dL (8.4-10.2); Carbon Dioxide 26 mmol/L (22-30); Chloride 109 mmol/L (98-107); Estimated CRCL calculation 39 ml/min; Estimated Glomerular Filt Rate 53; Glucose 85 mg/dL (65-110); Magnesium 1.7 mg/dL (1.6-2.3); Potassium 4.1 mmol/L (3.4-5.0); Sodium 141 mmol/L (137-145)
--- NOTE | 2022-09-09 07:12 | WPDGIPROGNO ---
Progress Note: A&P Assessment and Plan (1) Small bowel obstruction: Code(s): K56.609 - Unspecified intestinal obstruction, unspecified as to partial versus complete obstruction Status: Resolved Assessment and Plan: Obstruction was resolved with reduction of her hernia. (2) Incarcerated umbilical hernia: Code(s): K42.0 - Umbilical hernia with obstruction, without gangrene Status: Acute Assessment and Plan: this is not giving her any difficulty at this time At some point she may need surgery. (3) GI bleeding: Code(s): K92.2 - Gastrointestinal hemorrhage, unspecified Status: Acute Assessment and Plan: EGD yesterday revealed a very large and deep duodenal ulcer, nearly 4 cm in diameter. Was no active bleeding or visible vessel. A specimen for H pylori was negative. Her counts have improved from yesterday, up to 11.6 today versus 10.9 yesterday 09/09/2022 hemoglobin is up to 12.1 today. From my perspective she can be discharged. (4) Abnormal CT of the abdomen: Code(s): R93.5 - Abnormal findings on diagnostic imaging of other abdominal regions, including retroperitoneum Status: Acute Assessment and Plan: CT scan shows: 1. Small bowel obstruction with transition point at a short loop of small bowel herniating into an umbilical hernia. There is wall thickening of the herniated segment as well as a short segment of the more distal small bowel which suggests possibility of incarceration/ischemia. 2.?Wall thickening of the gastric pylorus and proximal duodenum and inflammatory stranding surrounding the head of the pancreas. There appears to be ulceration at least at the gastric pylorus potentially also at the proximal duodenum which suggests this could be related peptic ulcer disease.?There are however calcifications at the head of the pancreas and acute pancreatitis on an earlier CT dated 03/14/2013 which suggests this could be related to acute on chronic interstitial pancreatitis. Could not exclude both processes occurring simultaneously. Correlate with amylase and lipase levels and consider further evaluation with endoscopy when clinically appropriate. This and the small bowel findings were discussed with Dr. Jorgensen at 4:40 PM. 3. Increase in size of a now 12 mm indeterminate left renal lesion which could represent a proteinaceous/hemorrhagic cyst or solid renal cell carcinoma. Would recommend follow-up pre and postcontrast MRI or CT. ?EGD revealed large duodenal ulcer and severe duodenitis. (5) Diarrhea: Code(s): R19.7 - Diarrhea, unspecified Status: Acute Assessment and Plan: She states that she has had diarrhea since she came here. She denies having it at home but is not certain. She does however take Lomotil at home p.r.n. Plan Cultures were obtained, all are Negative. She had been empirically started on antibiotics in the emergency room. White blood count is normal, hence I do not think there is a need now for antibiotics I have advanced her diet. If her counts remain stable She could be discharged, on b.i.d. pantoprazole. I would like to see her in the office in 3 weeks. I plan to perform repeat EGD in about 8-10 weeks Subjective Date/time seen: 09/09/22 07:12 She is tolerating her diet. There is no evidence of bleeding. I see from reviewing my records that she has chronic diarrhea. She had stated that it began after she got to the hospital. Exam Const: General: alert Orientation/consciousness: patient oriented x3 Resp: Auscultation: clear to auscultation bilaterally Cardio: Rhythm: regular rhythm GI: Inspection: visible herniation GI Palp: No abdominal tenderness and Yes No hepatosplenomegaly present Auscultation: normal bowel sounds Neuro: General: patient oriented x3 Objective Data Vital Signs Vital Signs: Vital Signs - 24 hr 09/08/22 14:00 09/08/22 20:00 09/08/22 22:00 Temperature 36.2 C L 36.4 C
[2022-09-09] MEDS: PANTOPRAZOLE SODIUM IV 40 MG VIAL IV PUSH (08:33)
[2022-09-09 14:00] VITALS: BP 133/63; PULSE 66; RESP 20; TEMP 36.5; O2SAT 98
--- NOTE | 2022-09-09 14:42 | PCPTNOTE ---
Attempted PT eval, pt refused stating she was discharging home. Hospitalist aware. Care coordination contacted. RN aware.
--- NOTE | 2022-09-09 14:42 | PM.DS ---
DS: Admitting Diagnosis Discharge Date 09/09/2022 Admitting Diagnosis abdominal pain DS: Discharge Diagnosis Discharge Diagnosis (1) Small bowel obstruction: Code(s): K56.609 - Unspecified intestinal obstruction, unspecified as to partial versus complete obstruction Status: Acute (2) Strangulated umbilical hernia: Code(s): K42.0 - Umbilical hernia with obstruction, without gangrene Status: Deleted (3) GI bleeding: Code(s): K92.2 - Gastrointestinal hemorrhage, unspecified Status: Acute (4) Lesion of left [place] kidney: Code(s): N28.9 - Disorder of kidney and ureter, unspecified Status: Acute (5) Hypertension: Code(s): I10 - Essential (primary) hypertension Status: Acute (6) Hypothyroidism (acquired): Code(s): E03.9 - Hypothyroidism, unspecified Status: Chronic (7) Gastroesophageal reflux disease: Code(s): K21.9 - Gastro-esophageal reflux disease without esophagitis Status: Acute DS: Summary Hospital Course Hospital Course: The patient presented to the emergency department today via EMS from home for evaluation of abdominal pain for several days and with reports of diarrhea. CT of the abdomen pelvis showed evidence of small-bowel obstruction and possible incarceration within an umbilical hernia.? ?# small-bowel obstruction:? With transition point at short loop of small bowel herniating into an umbilical hernia.? There is wall thickening of the herniated segment as well as short segment of the more distal small bowel with suggest possibility of incarceration/ischemia.? The hernia was reduced with significant improvement in pain.? NG tube was placed in the ER. ? Coffee-ground NG tube noted.? General surgery consulted.? Follow-up x-ray abdomen with dilated small bowel with interval improvement consistent with adynamic ileus versus small-bowel obstruction.? Continue to wear abdominal binder in follow-up with surgery as outpatient basis and surgical intervention if needed /interested in future # ? Incarcerated umbilical hernia:? Use of abdominal binder recommended by General surgery.? Will need surgical reviewed eventually his she is interested. # coffee-ground NG output:? GI has been consulted and plan for EGD .? CT scan with wall thickening of the gastric pylorus and proximal duodenum and inflammatory stranding surrounding the head of the pancreas.? There appears to be ulceration at least the gastric pylorus potentially also at the proximal duodenum which suggest this could be related to peptic ulcer disease. on PPI. Status post EGD 09/07/2022: Reflux esophagitis grade 3 circumferential erosions/ ulcerations John Rodgers was present in the distal esophagus.? The stomach at the body, cardia and fundus were examined and were normal with no ulcers or masses.? Or cold forceps biopsies were taken from the antrum for rapid urease /TOMAS test. A single? greater chronic ulcer measuring 40 mm was visualized in the duodenal bulb.? Flat spots noted on the ulcer crater but no visible vessel or other area that could be intervened.? Severe localized duodenitis was seen in the duodenal bulb.? The duodenitis had severe erythematous and edematous changes.? A few cold forceps biopsies were taken from the duodenal bulb. On PPI b.i.d. which was ordered at the time of discharge # abnormal CT pancreas:? Calcification at the head of the pancreas. ? lipase was normal # anemia mild drop during the hospital stay but could be Hemodilutional as well. H&H remained stable # diarrhea:? On Rocephin and Flagyl for colitis? C diff negative stool studies were ordered.? stay for this. I IV antibiotics as well as fluids # uterine fibroid #? bilateral renal cyst:? Right kidney 1.5 cm left kidney slightly increased to 1.2 cm.? Suggest follow-up with pre and post-contrast MRI or CT.? this can be done as an outpatient basis # bilateral adrenal masses likely adenomas ?#DVT prophylaxis? SCDs # full co
--- NOTE | 2022-09-09 16:39 | PM.PNGS ---
Progress Note: A&P Assessment and Plan (1) Incarcerated umbilical hernia: Code(s): K42.0 - Umbilical hernia with obstruction, without gangrene Status: Acute Assessment and Plan: Now reducible on patient knows how to reduce herself. She has a caregiver as well. Plan is for home today with an abdominal binder. Dr. Hernandez has suggested she reduce the hernia herself daily. She will follow up with Dr. Hernandez to discuss repair in 3 weeks. Okay to discharge from surgical standpoint. (2) Small bowel obstruction: Code(s): K56.609 - Unspecified intestinal obstruction, unspecified as to partial versus complete obstruction Status: Resolved Assessment and Plan: Secondary to incarcerated periumbilical hernia, now reducible. (3) Duodenal ulcer: Code(s): K26.9 - Duodenal ulcer, unspecified as acute or chronic, without hemorrhage or perforation Status: Acute Assessment and Plan: Diagnosed by EGD. To go home on 40 mg Protonix b.i.d. and follow up with Dr. Hernandez in 3 weeks. Subjective Subjective Date/Time Seen: 09/09/22 12:39 Patient reports: no new complaints, feels better (plans to go home today) and afebrile Review of Systems Review of Systems: All systems reviewed & are unremarkable except as noted in HPI and below (HPI and those items noted below) Constitutional: Constitutional: Denies chills and Denies fever(s) Cardiovascular: Cardiovascular: Denies chest pain, Denies diaphoresis, Denies dyspnea and Denies paroxysmal nocturnal dyspnea Respiratory: Respiratory: Denies chest congestion, Denies cough and Denies dyspnea Gastrointestinal: Gastrointestinal: Reports as per HPI, Denies heartburn, Denies diarrhea, Denies nausea and Denies vomiting Integumentary/Breasts: Skin/Breast: Denies lesions and Denies rash Exam Const: General: comfortable, no acute distress, alert and awake Nutritional Appearance: overweight Orientation/consciousness: patient oriented x3 and No confusion GI: Inspection: non-distended, scar and visible herniation (Periumbilical) GI Palp: No abdominal tenderness, Yes Soft to palpation and Yes Hernia present (Periumbilical hernia and nontender and reducible) Objective Data Vital Signs Vital Signs: Vital Signs - 24 hr 09/08/22 20:00 09/08/22 22:00 09/08/22 23:40 Temperature 36.4 C Pulse Rate 57 L Respiratory Rate 18 Blood Pressure 113/47 L Pulse Oximetry 96 96 Oxygen Delivery Room Air Room Air 09/09/22 06:05 09/09/22 08:55 09/09/22 14:00 Temperature 36.2 C L 36.5 C Pulse Rate 64 66 Respiratory Rate 18 20 Blood Pressure 147/69 H 133/63 Pulse Oximetry 96 98 Oxygen Delivery Room Air Intake/Output Intake/Output: Intake & Output 09/06/22 09/07/22 09/08/22 09/09/22 23:59 23:59 23:59 23:59 Intake Total 3220 2180 2259 1180 Output Total 900 300 Balance 3220 2180 1359 880 Meds/Results Radiology Results: ITS Impressions Abdomen/Pelvis CT 09/05/22 16:19 IMPRESSION: 1. Small bowel obstruction with transition point at a short loop of small bowel herniating into an umbilical hernia. There is wall thickening of the herniated segment as well as a short segment of the more distal small bowel which suggests possibility of incarceration/ischemia. 2. Wall thickening of the gastric pylorus and proximal duodenum and inflammatory stranding surrounding the head of the pancreas. There appears to be ulceration at least at the gastric pylorus potentially also at the proximal duodenum which suggests this could be related peptic ulcer disease. There are however calcifications at the head of the pancreas and acute pancreatitis on an earlier CT dated 03/14/2013 which suggests this could be related to acute on chronic interstitial pancreatitis. Could not exclude both processes occurring simultaneously. Correlate with amylase and lipase levels and consider further evaluation with endoscopy when clinically appropriate. This and the small bowel f
== END 2022-09-09 16:10 | disposition home or self-care (01) | DRG 394 ==
LOC: ANHED 19:04 → ANH3MEDSUR 20:41
PROVIDERS: Emergency Medicine; Internal Medicine Gastroenterology; Nurse Practitioner Family; Physician Assistant; Student in an Organized Health Care Education/Training Program; Admitting Provider Family Medicine; Emergency Provider Emergency Medicine; PCP Emergency Medicine; Visit Provider Internal Medicine
PROC: 0DJ08ZZ Inspection of Upper Intestinal Tract, Via Natural or Artificial Opening Endoscopic (ICD-10-PCS; CPT 43235; principal; 2022-09-07 14:30)
DX: K42.0 Umbilical hernia with obstruction, without gangrene (principal); K22.10 Ulcer of esophagus without bleeding; K92.2 Gastrointestinal hemorrhage, unspecified; K21.00 Gastro-esophageal reflux disease with esophagitis, without bleeding; K26.7 Chronic duodenal ulcer without hemorrhage or perforation; K29.80 Duodenitis without bleeding; K52.9 Noninfective gastroenteritis and colitis, unspecified; Z20.822 Contact with and (suspected) exposure to COVID-19; E03.9 Hypothyroidism, unspecified; I10 Essential (primary) hypertension; N28.9 Disorder of kidney and ureter, unspecified; N28.1 Cyst of kidney, acquired; D35.02 Benign neoplasm of left adrenal gland; D35.01 Benign neoplasm of right adrenal gland; J44.9 Chronic obstructive pulmonary disease, unspecified; M06.9 Rheumatoid arthritis, unspecified; I87.2 Venous insufficiency (chronic) (peripheral); D64.9 Anemia, unspecified; F32.A Depression, unspecified; R73.9 Hyperglycemia, unspecified; R93.89 Abnormal findings on diagnostic imaging of other specified body structures; D25.9 Leiomyoma of uterus, unspecified; Z66 Do not resuscitate; Z96.1 Presence of intraocular lens; Z87.442 Personal history of urinary calculi; Z90.49 Acquired absence of other specified parts of digestive tract; Z98.42 Cataract extraction status, left eye; Z98.41 Cataract extraction status, right eye
CPT/HCPCS: 36415; 74018; 74177; 80048; 80053; 81001; 83690; 83735; 84439; 84443; 84480; 85014; 85018; 85025; 85027; 85610; 85730; 86850; 86900; 86901; 87081; 87493; 88305; 88342; 93005; 96374; 96375; 99285; A9270; C9113; J0696; J2270; J2405; J2704; J3475; J7120; Q9967; U0003; U0005

== ENCOUNTER 2022-11-03 11:14 | Emergency (ER) | payer MEDICARE, MEDICAID, SELFPAY ==
--- NOTE | ~2022-11-03 | CT_ITS ---
EXAMINATION: CT abdomen pelvis w con INDICATION: Left lower quadrant abdominal pain TECHNIQUE: Computed tomographic images of the abdomen and pelvis were obtained after the administrati on of 100 cc of Omnipaque 350 intravenous contrast. The dose-length product (DLP) was 896.54 mGy-cm. Automated exposure control and iterative reconstruction technique were employed. COMPARISON: 09/05/2022, 12/22/2018 FINDINGS: Minimal dependent atelectasis is present in the lung bases. The heart size is normal. The g allbladder is surgically absent. There is an unchanged 3.2 cm cystic area of the spleen with peripher al calcifications or suture line. The liver and pancreas are unremarkable. There are chronic bilatera l adrenal masses, measuring 4.1 cm on the left and 1.9 cm on the right, likely adenomas. There is a 1 .3 cm soft tissue attenuation mass of the left kidney with slight increase in size since the 2019 com parison. Additional cysts of the kidneys measure up to 1.5 cm on the right. The previously described wall thickening and inflammatory change centered near the gastric antrum and duodenal bulb has resolv ed. There is calcified atherosclerosis of the aorta and many of the other arteries. No pathologically enlarged abdominal or pelvic lymph nodes are identified. There is no free intraperitoneal gas or reny dence of bowel obstruction. Colonic diverticulosis is present without evidence of diverticulitis. The re is a moderate-sized ventral hernia containing fat. Severe lumbar spondylosis is noted. IMPRESSION: 1. No CT correlate for the patient's symptoms. 2. Left kidney mass as previously described reflecting proteinaceous/hemorrhagic cyst versus solid re nal neoplasm. Follow-up with nonemergent CT of the lumbar MRI without and with contrast is recommende d. 3. Moderate-sized ventral hernia containing fat. Reviewed, dictated and finalized at location L. ATTENDANT IMPRESSION: 1. No CT correlate for the patient's symptoms. 2. Left kidney mass as previously described reflecting proteinaceous/hemorrhagi c cyst versus solid renal neoplasm. Follow-up with nonemergent CT of the lumbar MRI without and with contrast is recommended. 3. Moderate-sized ventral hernia containing fat.
[2022-11-03 11:32] VITALS: BP 156/72; PULSE 60; RESP 16; TEMP 36.5; O2SAT 99
--- NOTE | 2022-11-03 12:08 | ED.GENADULT ---
HPI - General Adult General Chief complaint: Wound/Laceration Stated complaint: left sided lower abdominal wound with drainage Time Seen by Provider: 11/03/22 12:01 Source: RN notes reviewed History of Present Illness HPI narrative: Patient presents emergency department from home for left-sided abdominal wound. Patient states she first noted the wound approximately 1 week ago. States it was red and elevated she states that approximately a day ago it burst open and started to have drainage. She states that she does have pain down in the left lower abdomen she denies having fevers or chills she denies any nausea vomiting or diarrhea. States she has not put anything on the wound and states she has not taken anything for the symptoms Related Data Home Medications Medication Instructions Recorded Confirmed levothyroxine 150 mcg tablet 150 mcg PO DAILY 09/07/22 11/01/22 (Euthyrox) Allergies Allergy/AdvReac Type Severity Reaction Status Date / Time Penicillins Allergy Severe Hives Verified 11/03/22 13:08 Review of Systems Review of Systems: Gen.: Denies fevers or chills ENT: Denies congestion Respiratory: Denies shortness of breath or cough CV: Denies chest pain or palpitations GI: Reports left-sided abdominal pain, denies nausea, emesis or diarrhea Musculoskeletal: Denies back pain or muscle pain Neuro: Denies numbness, tingling, weakness or focal weakness Skin: See HPI Except as documented, all other systems reviewed and negative [facility] Past Medical History Medical History Chronic venous stasis dermatitis COPD (chronic obstructive pulmonary disease) Depression Gastroesophageal reflux disease Hyperglycemia Hypertension Hypothyroidism (acquired) Kidney stones Right kidney stone December 2018 Rheumatoid arthritis Surgical History Surgical History History of section X1 History of cholecystectomy History of evacuation of hematoma Of lateral thigh 2013 Status post cataract extraction of both eyes with insertion of intraocular lens 2003 Family History Family History Sibling Patient's sister is in good health Mother Diabetes mellitus, Onset Age: 41 Father Heart attack Cardiovascular disease Social History Social History Social History: Primary care physician: Dr. Henry Hinojosa Code status: DNR/DNI Medical POA: Fatemeh Pittman (daughter). Alternate surrogate decision maker: Karuna Stone, video technician. Smoking packs per day: 1 Smoking cigarettes per day: 20.0 Years smoked: 70 Smoking pack-years: 70.00 Smoking status: Former smoker Tobacco type: cigarettes Second hand tobacco smoke exposure: No Smoking end date: 08/20/17 Alcohol intake: former Substance use: never Substance use type: does not use Lack of Transportation: No Lack of Food: Never True Current Housing: I Have Housing Concerned About Future Housing: No Difficulty Paying Gas/Electric Bills: No Difficulty Paying for Meds: No Currently Unemployed: No Education: Grade School Difficulty w/ Childcare or Family Care: No Additional living arrangements comments: The patient has been since 2013. [place] and she has a 24 hour video technician that lives with her named Karuna. 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 Spiritual care concerns: No Exam Narrative: APPEARANCE: No acute distress, nontoxic, resting in bed HEENT: Normocephalic, atraumatic, OMM RESPIRATORY: No respiratory distress, clear to auscultation bilaterally with no rhonchi wheezing or rales CARDIOVASCULAR: RRR s murmur ABDOMINAL: Soft nondistended tender palpation left lower quadrant no tenderness left upper quadrant, right upper quadrant ri
[2022-11-03 12:30] LABS: Basophils Absolute Auto 0.1 K/mm3 (0.0-0.1); Basophils Percent Auto 0.9 % (0.2-1.2); Eosinophils Absolute Auto 0.1 K/mm3 (0-0.3); Eosinophils Percent Auto 2.1 % (0-4.4); Hemoglobin 12.1 g/dL (12.0-15.0); Immature Granulocyte Absolute 0.01 K/mm3 (0.00-0.031); Immature Granulocyte Percent A 0.2 % (0-0.5); Lymphocytes Absolute Auto 2.21 K/mm3 (0.9-3.2); Lymphocytes Percent Auto 41.9 % (18.3-44.2); Mean Corpuscular HGB Conc 32.7 g/dl (32-36); Mean Corpuscular Hemoglobin 30.3 pg (26-34); Mean Corpuscular Volume 92.5 fl (80-100); Mean Platelet Volume 12.2 fl (7.4-10.4); Monocytes Absolute Auto 0.3 K/mm3 (0.1-0.6); Monocytes Percent Auto 6.3 % (2.6-8.5); Neutrophils Absolute Auto 2.6 K/mm3 (1.3-6.7); Neutrophils Percent Auto 48.6 % (45.5-73.1); Platelet Count Result 276 k/mm3 (150-375); Red Cell Distribution Width 14.9 % (11.5-14.5); White Blood Count 5.3 K/mm3 (4.5-10.0)
[2022-11-03 12:39] LABS: Alanine Aminotransferase 16 U/L (6-35); Albumin Level 3.7 g/dL (3.5-5.1); Alkaline Phosphatase 97 U/L (38-126); Anion Gap 4 mmol/L (8-16); Aspartate Amino Transferase 25 U/L (14-36); Bilirubin,Total 0.5 mg/dL (0.2-1.3); Blood Urea Nitrogen 19 mg/dL (7-17); Calcium 9.1 mg/dL (8.4-10.2); Carbon Dioxide 29 mmol/L (22-30); Chloride 110 mmol/L (98-107); Estimated Glomerular Filt Rate > 60; Glucose 94 mg/dL (65-110); Potassium 4.5 mmol/L (3.4-5.0); Sodium 143 mmol/L (137-145)
[2022-11-03 13:07] VITALS: BP 158/79; PULSE 59; RESP 15; O2SAT 99
[2022-11-03] MEDS: DOXYCYCLINE HYCLATE 100 MG TABLET PO (14:50)
[2022-11-03 14:56] VITALS: BP 148/78; PULSE 57; RESP 15; O2SAT 99
== END 2022-11-03 15:01 | disposition home or self-care (01) ==
PROVIDERS: Emergency Provider Emergency Medicine; PCP Emergency Medicine
DX: L02.211 Cutaneous abscess of abdominal wall (principal); J44.9 Chronic obstructive pulmonary disease, unspecified; I10 Essential (primary) hypertension; I87.2 Venous insufficiency (chronic) (peripheral); E03.9 Hypothyroidism, unspecified; M06.9 Rheumatoid arthritis, unspecified; K21.9 Gastro-esophageal reflux disease without esophagitis; Z87.442 Personal history of urinary calculi; Z98.42 Cataract extraction status, left eye; Z98.41 Cataract extraction status, right eye; Z96.1 Presence of intraocular lens; Z66 Do not resuscitate; Z87.891 Personal history of nicotine dependence; K43.9 Ventral hernia without obstruction or gangrene; N28.89 Other specified disorders of kidney and ureter
CPT/HCPCS: 36415; 74177; 80053; 85025; 99284; A9270; Q9967

== ENCOUNTER 2022-11-17 00:07 | Day surgery (SDC) | payer MEDICARE, MEDICAID, SELFPAY ==
--- NOTE | 2022-11-08 13:15 | PM.HPGS ---
History of Present Illness History of Present Illness Consent: Risks, benefits, and alternatives have been discussed and questions answered. Patient agrees to proceed with procedure. Chief complaint: esophagitis, duodenal ulcer, duodenitis Narrative: Arielle Pittman is a 82 year old female Here for follow-up of a large duodenal ulcer and severe erosive esophagitis found about 8 weeks ago. She had been hospitalized at that time with gastrointestinal bleeding and CT scan of the duodenum was abnormal. [facility] Past Medical History Medical History Chronic venous stasis dermatitis COPD (chronic obstructive pulmonary disease) Depression Gastroesophageal reflux disease Hyperglycemia Hypertension Hypothyroidism (acquired) Kidney stones Right kidney stone December 2018 Rheumatoid arthritis Surgical History Surgical History History of section X1 History of cholecystectomy History of evacuation of hematoma Of lateral thigh 2013 Status post cataract extraction of both eyes with insertion of intraocular lens 2003 Family History Family History Sibling Patient's sister is in good health Mother Diabetes mellitus, Onset Age: 41 Father Heart attack Cardiovascular disease Social History Social History Social History: Primary care physician: Dr. Henry Hinojosa Code status: DNR/DNI Medical POA: Fatemeh Pittman (daughter). Alternate surrogate decision maker: Karuna Stone, search engine optimization manager. Smoking packs per day: 1 Smoking cigarettes per day: 20.0 Years smoked: 70 Smoking pack-years: 70.00 Smoking status: Former smoker Tobacco type: cigarettes Second hand tobacco smoke exposure: No Smoking end date: 08/20/17 Alcohol intake: former Substance use: never Substance use type: does not use Lack of Transportation: No Lack of Food: Never True Current Housing: I Have Housing Concerned About Future Housing: No Difficulty Paying Gas/Electric Bills: No Difficulty Paying for Meds: No Currently Unemployed: No Education: Grade School Difficulty w/ Childcare or Family Care: No Additional living arrangements comments: The patient has been since 2013. She lives in a trailer park and she has a 24 hour search engine optimization manager that lives with her named Karuna. 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 Spiritual care concerns: No Meds Home Medications and Allergies Home Medications Medication Instructions Recorded Confirmed Type albuterol sulfate 90 mcg/actuation 2 puff inhalation Q6HRT PRN 09/06/21 11/01/22 Rx aerosol inhaler (Proventil HFA) shortness of breath or wheezing #20.1 grams losartan 50 mg tablet 50 mg PO DAILY 30 days #90 tabs 06/10/22 11/01/22 Rx meclizine 25 mg tablet 25 mg PO TID PRN dizziness #90 tabs 08/15/22 11/01/22 Rx levothyroxine 150 mcg tablet 150 mcg PO DAILY 09/07/22 11/01/22 History (Euthyrox) pantoprazole 40 mg tablet,delayed 40 mg PO BIDAC #60 tabs 09/09/22 11/01/22 Rx release diphenoxylate-atropine 2.5 1 tablet PO QID PRN diarrhea #20 10/19/22 11/01/22 Rx mg-0.025 mg tablet (Lomotil) tabs doxycycline hyclate 100 mg capsule 100 mg PO BID #14 caps 11/03/22 Rx Allergies Allergy/AdvReac Type Severity Reaction Status Date / Time Penicillins Allergy Severe Hives Verified 11/03/22 13:08 Assessment and Plan Assessment and plan (1) Duodenal ulcer: Code(s): K26.9 - Duodenal ulcer, unspecified as acute or chronic, without hemorrhage or perforation Status: Acute Assessment and Plan: EGD with possible biopsy or dilatation or cautery.
--- NOTE | 2022-11-17 11:18 | WPDANESEPPF ---
Anes - Initial Pre Proc Eval Procedure: Operation Date: 11/17/22 12:30 Proposed Procedures p Esophagogastroduodenoscopy EGD - Chele Hernandez MD Date/Time: 11/17/22 11:18 Surgeon: Chele Hernandez MD Pre Op Diagnosis: esophagitis, duodenal ulcer, duodenitis Patient Data Age: 82 Gender: F Height: 1.55 m Weight: Allergies Allergy/AdvReac Type Severity Reaction Status Date / Time Penicillins Allergy Severe Hives Verified 11/03/22 13:08 Home Medications Medication Instructions Recorded Confirmed Type albuterol sulfate 90 mcg/actuation 2 puff inhalation Q6HRT PRN 09/06/21 11/01/22 Rx aerosol inhaler (Proventil HFA) shortness of breath or wheezing #20.1 grams meclizine 25 mg tablet 25 mg PO TID PRN dizziness #90 tabs 08/15/22 11/01/22 Rx diphenoxylate-atropine 2.5 1 tablet PO QID PRN diarrhea #20 10/19/22 11/01/22 Rx mg-0.025 mg tablet (Lomotil) tabs doxycycline hyclate 100 mg capsule 100 mg PO BID #14 caps 11/03/22 Rx levothyroxine 150 mcg tablet 150 mcg PO DAILY #90 tabs 11/14/22 Rx (Euthyrox) losartan 50 mg tablet 50 mg PO DAILY 30 days #90 tabs 11/14/22 Rx pantoprazole 40 mg tablet,delayed 40 mg PO BIDAC #60 tabs 11/14/22 Rx release Patient hx anesthesia problems: none Family hx anesthesia problems: none Results Review: All pre-operative results and documents have been reviewed as part of the pre-operative evaluation. [facility] Past Medical History Medical History (Updated 11/16/22 @ 08:24 by Abdullahi Singh DO) Chronic venous stasis dermatitis COPD (chronic obstructive pulmonary disease) Depression DVT (deep venous thrombosis) Gastroesophageal reflux disease Hyperglycemia Hypertension Hypothyroidism (acquired) Kidney stones Right kidney stone December 2018 PVD (peripheral vascular disease) red legs s/p bermudez Rheumatoid arthritis Surgical History Surgical History History of section X1 History of cholecystectomy History of evacuation of hematoma Of lateral thigh 2014 Status post cataract extraction of both eyes with insertion of intraocular lens 2003 Family History Family History Sibling Patient's sister is in good health Mother Diabetes mellitus, Onset Age: 41 Father Heart attack Cardiovascular disease Social History Social History Social History: Primary care physician: Dr. Henry Hinojosa Code status: DNR/DNI Medical POA: Fatemeh Pittman (daughter). Alternate surrogate decision maker: Karuna Stone, manufacturing support engineer. Smoking packs per day: 1 Smoking cigarettes per day: 20.0 Years smoked: 70 Smoking pack-years: 70.00 Smoking status: Former smoker Tobacco type: cigarettes Second hand tobacco smoke exposure: No Smoking end date: 08/20/17 Alcohol intake: former Substance use: never Substance use type: does not use Lack of Transportation: No Lack of Food: Never True Current Housing: I Have Housing Concerned About Future Housing: No Difficulty Paying Gas/Electric Bills: No Difficulty Paying for Meds: No Currently Unemployed: No Education: Grade School Difficulty w/ Childcare or Family Care: No Additional living arrangements comments: The patient has been since 2013. She lives in a trailer park and she has a 24 hour manufacturing support engineer that lives with her named Karuna. 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 Spiritual care concerns: No Anes - Eval Final PreProcedure Day of Procedure 11/17/22 11:18 Patient weight: obese Heart: regular rate and rhythm Lungs: clear to auscultation Airway: Mallampati scale class II Neurological: alert and oriented Last oral intake: >/= 8 hours ASA classification: III Emergent: no Anesthetic plan: proceed Anesthesia type and monitoring: general GIV
--- NOTE | 2022-11-17 11:20 | PM.HPGS ---
History of Present Illness History of Present Illness Consent: Risks, benefits, and alternatives have been discussed and questions answered. Patient agrees to proceed with procedure. Chief complaint: esophagitis, duodenal ulcer, duodenitis Narrative: Arielle Pittman is a 82 year old female who was found have a very large duodenal ulcer 2 months ago. She is here for follow-up to assess healing. Review of Systems Review of Systems: All systems reviewed & are unremarkable except as noted in HPI and below PMFSH Past Medical History Medical History Chronic venous stasis dermatitis COPD (chronic obstructive pulmonary disease) Depression DVT (deep venous thrombosis) Gastroesophageal reflux disease Hyperglycemia Hypertension Hypothyroidism (acquired) Kidney stones Right kidney stone December 2018 PVD (peripheral vascular disease) red legs s/p bermudez Rheumatoid arthritis Surgical History Surgical History History of section X1 History of cholecystectomy History of evacuation of hematoma Of lateral thigh 2013 Status post cataract extraction of both eyes with insertion of intraocular lens 2003 Family History Family History Sibling Patient's sister is in good health Mother Diabetes mellitus, Onset Age: 41 Father Heart attack Cardiovascular disease Social History Social History Social History: Primary care physician: Dr. Henry Hinojosa Code status: DNR/DNI Medical POA: Fatemeh Pittman (daughter). Alternate surrogate decision maker: Karuna Stone, property caretaker. Smoking packs per day: 1 Smoking cigarettes per day: 20.0 Years smoked: 70 Smoking pack-years: 70.00 Smoking status: Former smoker Tobacco type: cigarettes Second hand tobacco smoke exposure: No Smoking end date: 08/20/17 Alcohol intake: former Substance use: never Substance use type: does not use Lack of Transportation: No Lack of Food: Never True Current Housing: I Have Housing Concerned About Future Housing: No Difficulty Paying Gas/Electric Bills: No Difficulty Paying for Meds: No Currently Unemployed: No Education: Grade School Difficulty w/ Childcare or Family Care: No Additional living arrangements comments: The patient has been since 2013. She lives in a trailer park and she has a 24 hour property caretaker that lives with her named Karuna. 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 Spiritual care concerns: No Meds Home Medications and Allergies Home Medications Medication Instructions Recorded Confirmed Type albuterol sulfate 90 mcg/actuation 2 puff inhalation Q6HRT PRN 09/06/21 11/01/22 Rx aerosol inhaler (Proventil HFA) shortness of breath or wheezing #20.1 grams meclizine 25 mg tablet 25 mg PO TID PRN dizziness #90 tabs 08/15/22 11/01/22 Rx diphenoxylate-atropine 2.5 1 tablet PO QID PRN diarrhea #20 10/19/22 11/01/22 Rx mg-0.025 mg tablet (Lomotil) tabs doxycycline hyclate 100 mg capsule 100 mg PO BID #14 caps 11/03/22 Rx levothyroxine 150 mcg tablet 150 mcg PO DAILY #90 tabs 11/14/22 Rx (Euthyrox) losartan 50 mg tablet 50 mg PO DAILY 30 days #90 tabs 11/14/22 Rx pantoprazole 40 mg tablet,delayed 40 mg PO BIDAC #60 tabs 11/14/22 Rx release Allergies Allergy/AdvReac Type Severity Reaction Status Date / Time Penicillins Allergy Severe Hives Verified 11/03/22 13:08 Exam Const: General: alert Orientation/consciousness: patient oriented x3 Resp: Auscultation: clear to auscultation bilaterally Cardio: Rhythm: regular rhythm GI: GI Palp: Yes Soft to palpation and No Tenderness to palpation present (GI) Neuro: General: patient oriented x3 Assessment and Plan Assessment and plan (1) Duod
[2022-11-17 11:26] VITALS: BP 191/86; PULSE 58; RESP 18; TEMP 36.1; O2SAT 99; BMI 30.4
[2022-11-17] MEDS: LACTATED RINGERS 1,000 ML 150 ML IV CONT (11:29)
[2022-11-17 11:48] VITALS: BP 126/60; PULSE 47; RESP 17; O2SAT 97
[2022-11-17 11:58] VITALS: BP 114/61; PULSE 45; RESP 15; O2SAT 95
[2022-11-17 12:08] VITALS: BP 149/71; PULSE 47; RESP 17; O2SAT 97
== END 2022-11-17 12:27 | disposition home or self-care (01) ==
PROVIDERS: PCP Emergency Medicine; Visit Provider Internal Medicine Gastroenterology
PROC: 0DJ08ZZ Inspection of Upper Intestinal Tract, Via Natural or Artificial Opening Endoscopic (ICD-10-PCS; CPT 43235; principal; 2022-11-17 12:30)
DX: K26.9 Duodenal ulcer, unspecified as acute or chronic, without hemorrhage or perforation (principal); I87.8 Other specified disorders of veins; J44.9 Chronic obstructive pulmonary disease, unspecified; Z79.51 Long term (current) use of inhaled steroids; Z79.899 Other long term (current) drug therapy; F41.9 Anxiety disorder, unspecified; Z86.718 Personal history of other venous thrombosis and embolism; K21.9 Gastro-esophageal reflux disease without esophagitis; R73.9 Hyperglycemia, unspecified; I10 Essential (primary) hypertension; E03.9 Hypothyroidism, unspecified; I73.9 Peripheral vascular disease, unspecified; M06.9 Rheumatoid arthritis, unspecified; Z83.3 Family history of diabetes mellitus; Z82.49 Family history of ischemic heart disease and other diseases of the circulatory system; Z87.891 Personal history of nicotine dependence; E66.9 Obesity, unspecified; Z68.30 Body mass index [BMI] 30.0-30.9, adult
CPT/HCPCS: 43235; J2001; J2704; J7120

== ENCOUNTER 2023-01-23 17:06 | Observation (INO) | payer MEDICARE, MEDICAID, SELFPAY ==
--- NOTE | ~2023-01-23 | CT_ITS ---
EXAMINATION: CT abdomen pelvis w con DATE: 01/23/2023 22:54 INDICATION: N/V/D. history of hernia TECHNIQUE: Computed tomography (CT) of the abdomen and pelvis was performed with 100 mL Omnipaque-350 intravenous contrast. Automated exposure control and iterative reconstruction technique were employe d. The dose-length product was 637.99 mGy-cm. COMPARISON: 11/03/2022 . FINDINGS: Lower thorax: Left medial basal scar. Coronary artery calcification and likely stents. Liver: Normal. Biliary/Gallbladder: Gallbladder is absent. Mild intra and extrahepatic bile duct dilation, with infl ammatory change, likely related to the adjacent duodenal process. Pancreas: No mass or duct dilation. Spleen: Peripherally calcified splenic cyst. Adrenals:Bilateral adrenal adenomas. Kidneys: Mild cortical atrophy. 1.5 cm indeterminate density left midpole lesion. Multiple simple cys ts and hypodensities that are too small to characterize but most likely represent cysts. No obstructi ng calcification or hydronephrosis. GI tract: Mild distal esophageal and gastric wall edema. Marked pyloric and duodenal wall edema with duodenal ulceration. Thinned mucosa at the tip of the ulceration. No small or large bowel dilation. N ormal appendix. Diverticulosis without diverticulitis. Mesentery/Peritoneum: No ascites, mass, or free air. Retroperitoneum: No mass. Atherosclerotic abdominal aortic and/or arterial calcifications. Pelvis: Pelvic organs are within normal limits. Soft Tissues: Large fat-containing uncomplicated appearing umbilical hernia. Bones: No acute osseous finding. IMPRESSION: 1. Duodenal ulcer with significant surrounding duodenitis, and evidence of early ulcer wall breakdown , indicating a risk of perforation. 2. 1.5 cm indeterminate density left midpole lesion. Recommend nonemergent, outpatient renal MRI for further characterization. Reviewed, dictated and finalized at location K. IMPRESSION: 1. Duodenal ulcer with significant surrounding duodenitis, and evidence of misty y ulcer wall breakdown, indicating a risk of perforation. 2. 1.5 cm indeterminate density left midpole lesion. Recommend nonemergent, out patient renal MRI for further characterization.
--- NOTE | ~2023-01-23 | XR_ITS ---
EXAMINATION: XR chest 1V portable Exam Date/Time: 01/23/2023 21:52 CDT HISTORY: weakness Comparison: 04/27/2022. RESULT: Lines, tubes, and devices: None. Lungs and pleura: No pneumothorax or focal consolidation. Senescent changes. Cardiomediastinal silhouette: Stable. Other: No acute osseous or upper abdominal finding. Chronic comminuted and ununited right proximal h umeral fracture. IMPRESSION: No acute cardiopulmonary process. Reviewed, dictated and finalized at location K.
[2023-01-23 17:08] VITALS: BP 168/87; PULSE 72; RESP 18; TEMP 36.8; O2SAT 98
[2023-01-23 19:49] LABS: Basophils Absolute Auto 0.1 K/mm3 (0.0-0.1); Basophils Percent Auto 0.9 % (0.2-1.2); Eosinophils Absolute Auto 0.1 K/mm3 (0-0.3); Eosinophils Percent Auto 0.7 % (0-4.4); Hematocrit 47.1 % (37.0-47.0); Hemoglobin 15.9 g/dL (12.0-15.0); Immature Granulocyte Absolute 0.02 K/mm3 (0.00-0.031); Immature Granulocyte Percent A 0.3 % (0-0.5); Lymphocytes Percent Auto 30.1 % (18.3-44.2); Mean Corpuscular HGB Conc 33.8 g/dl (32-36); Mean Corpuscular Hemoglobin 30.3 pg (26-34); Mean Corpuscular Volume 89.9 fl (80-100); Mean Platelet Volume 11.8 fl (7.4-10.4); Monocytes Absolute Auto 0.4 K/mm3 (0.1-0.6); Monocytes Percent Auto 5.6 % (2.6-8.5); Neutrophils Absolute Auto 4.8 K/mm3 (1.3-6.7); Neutrophils Percent Auto 62.4 % (45.5-73.1); Platelet Count Result 282 k/mm3 (150-375); Red Blood Count 5.24 M/mm3 (4.2-5.4); Red Cell Distribution Width 14.7 % (11.5-14.5); White Blood Count 7.7 K/mm3 (4.5-10.0)
[2023-01-23 19:55] LABS: Alanine Aminotransferase 25 U/L (6-35); Albumin Level 4.7 g/dL (3.5-5.1); Alkaline Phosphatase 116 U/L (38-126); Anion Gap 10 mmol/L (8-16); Aspartate Amino Transferase 29 U/L (14-36); Bilirubin,Total 0.9 mg/dL (0.2-1.3); Blood Urea Nitrogen 30 mg/dL (7-17); Calcium 9.7 mg/dL (8.4-10.2); Carbon Dioxide 24 mmol/L (22-30); Chloride 105 mmol/L (98-107); Estimated CRCL calculation 33 ml/min; Estimated Glomerular Filt Rate 48; Glucose 106 mg/dL (65-110); Lipase 71 U/L (23-300); Potassium 4.2 mmol/L (3.4-5.0); Sodium 139 mmol/L (137-145)
--- NOTE | 2023-01-23 21:44 | ED.GENADULT ---
HPI - General Adult General Chief complaint: Weakness Stated complaint: diarrhea, weakness Time Seen by Provider: 01/23/23 20:33 History of Present Illness HPI narrative: This is an 82-year-old female with a history of chronic diarrhea presenting to ED with diarrhea. Patient has been seen seen for this multiple times in the past. She was placed on antidiarrheal medicines and a high-fiber diet and was doing well. She has since stopped taking antidiarrheal medicines and is now eating a diet high in bologna and hot dogs. The patient is complaining of some abdominal discomfort and nausea. She says this resolves after she belches. The patient's primary manager vehicle says that she has been having profuse diarrhea over the last 3 days. Now she is complaining of dizziness and lightheadedness. Related Data Allergies Allergy/AdvReac Type Severity Reaction Status Date / Time Penicillins Allergy Severe Hives Verified 12/23/22 11:13 [facility] Past Medical History Medical History Chronic venous stasis dermatitis COPD (chronic obstructive pulmonary disease) Depression DVT (deep venous thrombosis) Gastroesophageal reflux disease Hyperglycemia Hypertension Hypothyroidism (acquired) Kidney stones Right kidney stone December 2018 PVD (peripheral vascular disease) red legs s/p bermudez Rheumatoid arthritis Surgical History Surgical History History of section X1 History of cholecystectomy History of evacuation of hematoma Of lateral thigh 2013 Status post cataract extraction of both eyes with insertion of intraocular lens 2003 Family History Family History Sibling Patient's sister is in good health Mother Diabetes mellitus, Onset Age: 41 Father Heart attack Cardiovascular disease Social History Social History Social History: Primary care physician: Dr. Henry Hinojosa Code status: DNR/DNI Medical POA: Fatemeh Pittman (daughter). Alternate surrogate decision maker: Karuna Stone, manager vehicle. Smoking packs per day: 1 Smoking cigarettes per day: 20.0 Years smoked: 70 Smoking pack-years: 70.00 Smoking status: Former smoker Tobacco type: cigarettes Second hand tobacco smoke exposure: No Smoking end date: 08/20/17 Alcohol intake: former Substance use: never Substance use type: does not use Lack of Transportation: No Lack of Food: Never True Current Housing: I Have Housing Concerned About Future Housing: No Difficulty Paying Gas/Electric Bills: No Difficulty Paying for Meds: No Currently Unemployed: No Education: Grade School Difficulty w/ Childcare or Family Care: No Living arrangements: alone Additional living arrangements comments: The patient has been since 2013. She lives in a trailer park and she has a 24 hour manager vehicle that lives with her named Krauna. 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 Spiritual care concerns: No Exam Narrative: APPEARANCE: No apparent distress. Head: atraumatic. EYES: EOMI, NOSE: Atraumatic NECK: Trachea midline RESPIRATORY: No increased rate of breathing , clear to auscultation bilaterally CARDIOVASCULAR: RRR, no peripheral edema ABDOMINAL: soft, nontender no guarding or rebound, umbilical hernia that is reducible nontender. Some dry skin /discharge in the umbilicus MUSCULOSKELETAl: No obvious deformities NEURO: Alert. Moving 4/4 extremities SKIN:: Warm, dry. Normal color PSYCHIATRIC: Normal affect Course Vital Signs Vital signs: Vital Signs Temperature 98.2 F 01/23/23 17:08 Pulse Rate 72 01/23/23 17:08 Respiratory Rate 18 01/23/23 17:08 Blood Pressure 168/87 H 01/23/23 17:08 Pulse Oximetry 98 01/23/23 17:08
[2023-01-23] MEDS: ONDANSETRON INJ 4 MG/2 ML VIAL IV PUSH (22:18)
[2023-01-23] MEDS: SODIUM CHLORIDE 0.9% IV 2,000 ML 999 ML IV CONT (22:19)
[2023-01-23 23:17] LABS: Influenza A QL RT-PCR Negative (Negative); Influenza B QL RT-PCR Negative (Negative); RSV RNA, RT-PCR Negative (Negative); SARS-CoV-2 RNA PCR Negative
[2023-01-23 23:45] LABS: Thyroid Stimulating Hormone Reflex 0.874 uIU/mL (0.465-4.68)
[2023-01-23 23:50] LABS: Appearance Urine Cloudy (Clear); Bacteria Urine None Seen /hpf; Bilirubin Urine Negative (Negative); Blood Urine Negative (Negative); Color Urine Dark Yellow (Yellow); Glucose Urine UA Negative (Negative); Ketones Urine Trace mg/dL (Negative); Leukocyte Esterase Ur 1+ LEU/UL (Negative); Need Manual Microscopic Reviewed; Nitrate Urine Negative (Negative); Non Pathogenic Casts >20; Protein Urine 1+ mg/dL (Negative); RBC Urine 0-2 /hpf (0-2); Specific Grav Ur 1.033 (1.001-1.035); Squamous Epithelial Cell Urine Few /hpf (Few); WBC Urine 21-50 /hpf
[2023-01-23 23:51] LABS: Add Urine Microscopic? YES
[2023-01-24] VITALS (9 sets, daily range): BP systolic 121–182; BP diastolic 51–83; PULSE 58–83; RESP 16–18; TEMP 36.7–37.2; O2SAT 96–100; BMI 28.9
[2023-01-24] MEDS: PANTOPRAZOLE SODIUM IV 40 MG VIAL IV PUSH ×3 (02:34→20:17)
--- NOTE | 2023-01-24 03:08 | ADMGEN ---
This patient, Arielle Pittman, was admitted to [facility] Room 306-02. Patient/family oriented to hospital policies and general routines including ID bracelet, bed and alarms, visiting hours, pain management, procedures, bathroom and other care routines, personal items, smoking policy, room service/diet, and visiting hours. Information on how to activate the Rapid Response Team has been discussed. Patient/Family are encouraged to report perceived risks to care and to ask questions if they do not understand what they are told or what they should do.
[2023-01-24] MEDS: LACTATED RINGERS 1,000 ML 75 ML IV CONT ×2 (03:29→17:57)
--- NOTE | 2023-01-24 06:09 | PM.IMHP ---
H&P: HPI History of Present Illness Date/Time: 01/24/23 06:09 Chief Complaint: Nausea and diarrhea Narrative: 82-year-old female with a past medical history of hypothyroidism, essential hypertension and reflux esophagitis/duodenal ulcer and chronic duodenitis noted on EGD 09/27/2022 and 11/17/2022 who presented to the ER with nausea and multiple bouts of diarrhea. The patient has had multiple admissions for this similar symptoms in the past. She actually has somewhat intermittent /chronic diarrhea. She had been treated for her duodenal ulcer with Protonix. Evidently she followed up with her primary care doctor about a month ago and he stopped her Protonix thinking that it would help with her diarrhea. The patient stated she did have somewhat less frequent diarrhea but had a recurrence of her diarrhea 3 days ago. She has had multiple loose stools a day. Her stools are watery and yellow in color. She denied any fevers or chills. She has not had any abdominal pain. She has been having some lightheadedness due to the diarrhea. She reports that she feels very dehydrated. She denies having any abdominal pain when she eats but has had persistent nausea for 3 days. She has had little to no oral intake for the last 3 days. She states that her mouth is very dry and is requesting ice chips at this time. She denies any chest pain or shortness of breath. She has not had any cough or congestion. She has been having some lightheadedness with position changes. In the ER her labs were consistent with dehydration given that she had polycythemia due to hemoconcentration. She reports that she can not hold her urine and denies any hematuria or dysuria. She has not had any respiratory symptoms. She denies any recent antibiotic use. Review of Systems Review of Systems: 12 systems were reviewed with pertinent positives and negatives per HPI. Except as documented in the HPI, all other systems were reviewed and are negative. However patient is not the best historian. [facility]LY [facility], LATER [facility] Past Medical History Medical History Anxiety and depression Chronic venous stasis dermatitis COPD mixed type Depression DVT (deep venous thrombosis) Gastroesophageal reflux disease Hyperglycemia Hypertension Hypothyroidism (acquired) Kidney stones Right kidney stone December 2018 PVD (peripheral vascular disease) red legs s/p bermudez Rheumatoid arthritis Small bowel obstruction Umbilical hernia Vitamin D deficiency Surgical History Surgical History History of section X1 History of cholecystectomy History of evacuation of hematoma Of lateral thigh 2014 Status post cataract extraction of both eyes with insertion of intraocular lens 2003 Family History Family History Sibling Patient's sister is in good health Mother Diabetes mellitus, Onset Age: 41 Father Heart attack Cardiovascular disease Social History Social History Social History: Primary care physician: Dr. Henry Hinojosa Code status: DNR/DNI Medical POA: Fatemeh Pittman (daughter). Alternate surrogate decision maker: Karuna Stone, animal caretaker supervisor. Smoking packs per day: 2 Smoking cigarettes per day: 40.0 Years smoked: 50 Smoking pack-years: 100.00 Smoking status: Former smoker Tobacco type: cigarettes Second hand tobacco smoke exposure: No Smoking end date: 08/20/17 Alcohol intake: never Substance use: former Substance use type: does not use Lack of Transportation: No Lack of Food: Never True Current Housing: I Have Housing Concerned About Future Housing: No Difficulty Paying Gas/Electric Bills: No Difficulty Paying for Meds: No Currently Unemployed: No Education: High School Diploma/GED Difficulty w/
[2023-01-24 06:40] LABS: Basophils Absolute Auto 0.1 K/mm3 (0.0-0.1); Basophils Percent Auto 0.7 % (0.2-1.2); Hematocrit 38.9 % (37.0-47.0); Hemoglobin 13.1 g/dL (12.0-15.0); Immature Granulocyte Absolute 0.04 K/mm3 (0.00-0.031); Immature Granulocyte Percent A 0.5 % (0-0.5); Mean Corpuscular HGB Conc 33.7 g/dl (32-36); Mean Corpuscular Hemoglobin 29.8 pg (26-34); Mean Corpuscular Volume 88.6 fl (80-100); Mean Platelet Volume 12.2 fl (7.4-10.4); Monocytes Absolute Auto 0.5 K/mm3 (0.1-0.6); Monocytes Percent Auto 5.2 % (2.6-8.5); Neutrophils Absolute Auto 6.2 K/mm3 (1.3-6.7); Neutrophils Percent Auto 72.6 % (45.5-73.1); Platelet Count Result 232 k/mm3 (150-375); Red Blood Count 4.39 M/mm3 (4.2-5.4); Red Cell Distribution Width 14.6 % (11.5-14.5); White Blood Count 8.6 K/mm3 (4.5-10.0)
[2023-01-24 06:59] LABS: Alanine Aminotransferase 18 U/L (6-35); Albumin Level 3.7 g/dL (3.5-5.1); Alkaline Phosphatase 88 U/L (38-126); Anion Gap 5 mmol/L (8-16); Aspartate Amino Transferase 22 U/L (14-36); Bilirubin,Total 0.6 mg/dL (0.2-1.3); Blood Urea Nitrogen 29 mg/dL (7-17); Calcium 8.9 mg/dL (8.4-10.2); Carbon Dioxide 21 mmol/L (22-30); Chloride 112 mmol/L (98-107); Estimated CRCL calculation 37 ml/min; Estimated Glomerular Filt Rate 53; Glucose 98 mg/dL (65-110); Potassium 4.7 mmol/L (3.4-5.0); Sodium 138 mmol/L (137-145)
[2023-01-24] MEDS: LOSARTAN POTASSIUM 50 MG TABLET PO (09:11)
[2023-01-24] MEDS: LEVOTHYROXINE SODIUM 150 MCG TABLET PO (09:12)
--- NOTE | 2023-01-24 13:27 | PM.IMPN ---
Progress Note: A&P Assessment and Plan (1) Duodenal ulcer: Code(s): K26.9 - Duodenal ulcer, unspecified as acute or chronic, without hemorrhage or perforation Status: Acute (2) Nausea & vomiting: Code(s): R11.2 - Nausea with vomiting, unspecified Status: Acute (3) Acute diarrhea: Code(s): R19.7 - Diarrhea, unspecified Status: Acute Assessment and Plan: Acute on chronic diarrhea (4) Acute dehydration: Code(s): E86.0 - Dehydration Status: Acute Plan CT suggests that the patient's duodenal ulcer may be worsening. This may be the case given that the patient's PPI therapy was discontinued by primary care physician. Will resume the patient's PPI therapy with Protonix 40 mg IV b.i.d.. The patient's EGD at previously been done by Dr. Hernandez. I have change the consult to Dr. Hernandez for patient continuity of care. If the patient's ulcer is near rupture the risks and benefits of procedure need to be discussed with the patient. Certainly instrumentation could increase this risk. Will leave the patient NPO until patient is evaluated by GI. Dehydration due decreased oral intake and diarrhea. Patient's diarrhea is acute on chronic. Will check stool cultures and C diff. dehydration demonstrated by hemoconcentration. Repeat CBC and electrolyte panel have been ordered for a.m.. Patient does have hypertension with history of uncontrolled hypertension in the past. Will give meds with sips of water. Will also provide hydralazine 10 mg IV q.4 hours p.r.n. systolic blood pressures greater than 160. Continue home levothyroxine patient's hypothyroidism. 01/24/2023 interval history: 82-year-old female with history of duodenal ulcer now presented with a persistent diarrhea and abdominal pain CT scan of the abdomen showed worsening duodenal ulcer concerning for perforation, patient being treated with Protonix 40 mg b.i.d. IV patient states her symptoms are improved, patient be seen by GI and further recommendation to follow. Subjective Date/time seen: 01/24/23 13:27 CT suggests that the patient's duodenal ulcer may be worsening. This may be the case given that the patient's PPI therapy was discontinued by primary care physician. Will resume the patient's PPI therapy with Protonix 40 mg IV b.i.d.. The patient's EGD at previously been done by Dr. Hernandez. I have change the consult to Dr. Hernandez for patient continuity of care. If the patient's ulcer is near rupture the risks and benefits of procedure need to be discussed with the patient. Certainly instrumentation could increase this risk. Will leave the patient NPO until patient is evaluated by GI. Dehydration due decreased oral intake and diarrhea. Patient's diarrhea is acute on chronic. Will check stool cultures and C diff. dehydration demonstrated by hemoconcentration. Repeat CBC and electrolyte panel have been ordered for a.m.. Patient does have hypertension with history of uncontrolled hypertension in the past. Will give meds with sips of water. Will also provide hydralazine 10 mg IV q.4 hours p.r.n. systolic blood pressures greater than 160. Continue home levothyroxine patient's hypothyroidism. 01/24/2023 interval history: 82-year-old female with history of duodenal ulcer now presented with a persistent diarrhea and abdominal pain CT scan of the abdomen showed worsening duodenal ulcer concerning for perforation, patient being treated with Protonix 40 mg b.i.d. IV patient states her symptoms are improved, patient be seen by GI and further recommendation to follow. Review of Systems Review of Systems: 12 systems were reviewed with pertinent positives and negatives per HPI. Except as documented in the HPI, all other systems were reviewed and are negative. However patient is not the best historian. Exam Narrative: Moderately obese elderly frail Patient is comfortable, NAD HEENT: eyes are clear and none icteric LUNGS: Normal respiratory
--- NOTE | 2023-01-24 14:32 | WPDGICN ---
Assessment and Plan Assessment and plan (1) Duodenal ulcer: Code(s): K26.9 - Duodenal ulcer, unspecified as acute or chronic, without hemorrhage or perforation Status: Acute Assessment and Plan: She had a large duodenal ulcer last year which had healed on follow-up EGD. Now it appears, based on CT scan, that she again has a duodenal ulcer. The report suggests that it may be thin walled, penetrating. We will definitely keep her on pantoprazole. She is receiving it twice a day now. I told her that we will have her on this indefinitely and will at some point repeat EGD to confirm the CT findings. (2) Abnormal CT of the abdomen: Code(s): R93.5 - Abnormal findings on diagnostic imaging of other abdominal regions, including retroperitoneum Status: Acute Assessment and Plan: As noted above, it appears that she has another duodenal ulcer. This could of course be vestiges of her previous ulcer (3) Acute dehydration: Code(s): E86.0 - Dehydration Status: Acute Assessment and Plan: BUN was elevated on admission and she was also hemoconcentrated with a high hemoglobin. She is still thirsty She had been kept NPO. I will start her on a clear liquid diet. (4) Diarrhea: Code(s): R19.7 - Diarrhea, unspecified Status: Acute Assessment and Plan: Diarrhea has been issue on and off for at least 9 months. Cultures were negative last fall and again C diff is negative this time. I doubt infectious etiology. I am unable to find documentation of a colonoscopy in the last 20 years. I will order calprotectin level to rule out inflammatory bowel disease. GI Consult Note Consult date/time: 01/24/23 14:32 HPI: Arielle Pittman is a 82 year old female who presented to the emergency room yesterday with complaints of not being able to eat for the past few weeks as well as having severe diarrhea. She has multiple loose stools every day. There is no blood in her stools. She has had no fever or chills or abdominal pain. She is getting very weak. She was in fact found to be dehydrated on admission. Diarrhea has been a problem for her since last summer. She in fact was in the emergency room in August when cultures were done that were all negative. Few weeks later she is back because of abdominal pain and I was asked to see her when on a CT scan there were changes suggestive of a pyloric or duodenal ulcer. She did in fact have a large duodenal ulcer, 4 cm diameter and was started on pantoprazole. She came in for follow-up EGD in November at which time the ulcer had healed. We advised her to continue the medication but because of the diarrhea her primary care provider suggested she stop pantoprazole thinking perhaps that was contributing to her bowel issues. Now, CT scan again shows changes consistent with a large duodenal ulcer, perhaps penetrating with thin wall. She is not having any abdominal pain at present. She has been NPO since admission but would like to try eating or drinking something. She is very thirsty. She has been started on pantoprazole 40 mg b.i.d. Review of Systems Review of Systems: All systems reviewed & are unremarkable except as noted in HPI and below PMFSH Past Medical History Medical History Anxiety and depression Chronic venous stasis dermatitis COPD mixed type Depression DVT (deep venous thrombosis) Gastroesophageal reflux disease Hyperglycemia Hypertension Hypothyroidism (acquired) Kidney stones Right kidney stone December 2018 PVD (peripheral vascular disease) red legs s/p bermudez Rheumatoid arthritis Small bowel obstruction Umbilical hernia Vitamin D deficiency Surgical History Surgical History History of section X1 History of cholecystectomy History of evacuation of hematoma Of lateral thigh 2013 Status post cataract extraction o
[2023-01-24] MEDS: MELATONIN 5 MG TABLET 10 MG PO (21:37)
[2023-01-25] VITALS (7 sets, daily range): BP systolic 126–158; BP diastolic 52–70; PULSE 51–61; RESP 16–22; TEMP 36.3–36.8; O2SAT 96–99
[2023-01-25] MEDS: LEVOTHYROXINE SODIUM 150 MCG TABLET PO (05:37)
[2023-01-25] MEDS: LACTATED RINGERS 1,000 ML 75 ML IV CONT (05:37)
--- NOTE | 2023-01-25 06:08 | PC.NURSE ---
Pt has anxiety- multiple questions, requests. Repeats self.. Redirection is difficult. Pt with difficulty listening to instructions/ teaching . Pt in bed , turn reposition, has difficulty moving due to obesity. Buttock - red, incontinence. Informed need for stool specimen.....Pt states lives in trailer with friend who takes care of her, along with three dogs. Pt forgetful, disheveled. Continue to monitor pt closely.
[2023-01-25 07:54] LABS: Hematocrit 36.6 % (37.0-47.0); Hemoglobin 12.2 g/dL (12.0-15.0); Mean Corpuscular HGB Conc 33.3 g/dl (32-36); Mean Corpuscular Hemoglobin 30.3 pg (26-34); Mean Platelet Volume 11.9 fl (7.4-10.4); Platelet Count Result 203 k/mm3 (150-375); Red Blood Count 4.02 M/mm3 (4.2-5.4); White Blood Count 5.2 K/mm3 (4.5-10.0)
[2023-01-25 08:17] LABS: Anion Gap 3 mmol/L (8-16); Blood Urea Nitrogen 22 mg/dL (7-17); Calcium 8.8 mg/dL (8.4-10.2); Carbon Dioxide 21 mmol/L (22-30); Chloride 114 mmol/L (98-107); Estimated CRCL calculation 41 ml/min; Estimated Glomerular Filt Rate 60; Glucose 78 mg/dL (65-110); Magnesium 1.7 mg/dL (1.6-2.3); Potassium 3.6 mmol/L (3.4-5.0); Sodium 138 mmol/L (137-145)
[2023-01-25] MEDS: PANTOPRAZOLE SODIUM IV 40 MG VIAL IV PUSH ×2 (08:57→20:14)
[2023-01-25] MEDS: LACTATED RINGERS 1,000 ML 150 ML IV CONT (09:43)
--- NOTE | 2023-01-25 10:38 | WPDANESEPPF ---
Anes - Initial Pre Proc Eval Procedure: Operation Date: 01/25/23 11:30 Proposed Procedures p Colonoscopy - Chele Hernandez MD Date/Time: 01/25/23 10:38 Surgeon: Macy Reed DO Pre Op Diagnosis: Duodenal Ulcer Patient Data Age: 82 Gender: F Height: 1.6 m Weight: 74.1 kg Last Vital Signs Temp 97.4 F L 01/25/23 09:35 Pulse 51 L 01/25/23 09:35 Resp 20 01/25/23 09:35 BP 142/54 H 01/25/23 09:35 Pulse Ox 97 01/25/23 09:35 O2 Del Method Room Air 01/25/23 09:35 Allergies Allergy/AdvReac Type Severity Reaction Status Date / Time Penicillins Allergy Severe Hives Verified 01/25/23 09:31 Home Medications Medication Instructions Recorded Confirmed Type meclizine 25 mg tablet 25 mg PO TID PRN dizziness #90 tabs 08/15/22 01/24/23 Rx levothyroxine 150 mcg tablet 150 mcg PO DAILY #90 tabs 11/14/22 01/24/23 Rx (Euthyrox) losartan 50 mg tablet 50 mg PO DAILY 90 days #90 tabs 12/23/22 01/24/23 Rx melatonin 10 mg tablet 10 mg PO HS PRN Insomnia 01/24/23 01/24/23 History Laboratory Tests 01/25/23 01/25/23 07:46 07:46 WBC 5.2 K/mm3 K/mm3 (4.5-10.0) RBC 4.02 M/mm3 L M/mm3 (4.2-5.4) Hgb 12.2 g/dL g/dL (12.0-15.0) Hct 36.6 % L % (37.0-47.0) MCV 91.0 fl fl (80-100) MCH 30.3 pg pg (26-34) MCHC 33.3 g/dl g/dl (32-36) RDW 15.0 % H % (11.5-14.5) Plt Count 203 k/mm3 k/mm3 (150-375) MPV 11.9 fl H fl (7.4-10.4) Sodium 138 mmol/L mmol/L (137-145) Potassium 3.6 mmol/L mmol/L (3.4-5.0) Chloride 114 mmol/L H mmol/L (98-107) Carbon Dioxide 21 mmol/L L mmol/L (22-30) Anion Gap 3 mmol/L L mmol/L (8-16) BUN 22 mg/dL H mg/dL (7-17) Creatinine 0.90 mg/dL mg/dL (0.7-1.0) Estim Creat Clear Calc 41 ml/min ml/min Estimated GFR 60 (59 - ) Glucose 78 mg/dL mg/dL (65-110) Calcium 8.8 mg/dL mg/dL (8.4-10.2) Magnesium 1.7 mg/dL mg/dL (1.6-2.3) Patient hx anesthesia problems: none Family hx anesthesia problems: none Results Review: All pre-operative results and documents have been reviewed as part of the pre-operative evaluation. [facility] Past Medical History Medical History Anxiety and depression Chronic venous stasis dermatitis COPD mixed type Depression DVT (deep venous thrombosis) Gastroesophageal reflux disease Hyperglycemia Hypertension Hypothyroidism (acquired) Kidney stones Right kidney stone December 2018 PVD (peripheral vascular disease) red legs s/p bermudez Rheumatoid arthritis Small bowel obstruction Umbilical hernia Vitamin D deficiency Surgical History Surgical History History of section X1 History of cholecystectomy History of evacuation of hematoma Of lateral thigh 2013 Status post cataract extraction of both eyes with insertion of intraocular lens 2003 Family History Family History Sibling Patient's sister is in good health Mother Diabetes mellitus, Onset Age: 41 Father Heart attack Cardiovascular disease Social History Social History Social History: Primary care physician: Dr. Henry Hinojosa Code status: DNR/DNI Medical POA: Fatemeh Pittman (daughter). Alternate surrogate decision maker: Karuna Stone, equipment records supervisor. Smoking packs per day: 2 Smoking cigarettes per day: 40.0 Years smoked: 50 Smoking pack-years: 100.00 Smoking status: Former smoker Tobacco type: cigarettes Second hand tobacco smoke exposure: No Smoking end date: 08/20/17 Alcohol intake: never Substance use: former Substance use type: does not use Lack of Transportation: No Lack of Food: Never True Current Housing: I Have
--- NOTE | 2023-01-25 12:14 | PM.IMPN ---
Progress Note: A&P Assessment and Plan (1) Duodenal ulcer: Code(s): K26.9 - Duodenal ulcer, unspecified as acute or chronic, without hemorrhage or perforation Status: Acute Assessment and Plan: Appreciate GI input, continue PPI. Plan for scope. (2) Nausea & vomiting: Code(s): R11.2 - Nausea with vomiting, unspecified Status: Acute Assessment and Plan: Monitor (3) Acute diarrhea: Code(s): R19.7 - Diarrhea, unspecified Status: Acute Assessment and Plan: Acute on chronic diarrhea (4) Acute dehydration: Code(s): E86.0 - Dehydration Status: Acute Subjective Date/time seen: 01/25/23 12:14 No complaints Exam Narrative: Moderately obese elderly frail Patient is comfortable, NAD HEENT: eyes are clear and none icteric LUNGS: Normal respiratory effort ABD: BS+, Soft and Lower extremities: no edema SKIN: nonjaundiced Neuro: grossly intact. Objective Data Vital Signs Vital Signs: Vital Signs - 24 hr 01/24/23 14:00 01/24/23 16:00 01/24/23 20:32 Temperature 98.9 F 98.7 F Pulse Rate 83 80 58 L Respiratory Rate 18 16 Blood Pressure 121/54 L 125/51 L Pulse Oximetry 97 96 Oxygen Delivery 01/25/23 04:58 01/25/23 09:35 01/25/23 11:11 Temperature 97.6 F 97.4 F L Pulse Rate 57 L 51 L 55 L Respiratory Rate 16 20 22 H Blood Pressure 142/52 H 142/54 H 155/70 H Pulse Oximetry 96 97 97 Oxygen Delivery Room Air Room Air 01/25/23 11:22 01/25/23 11:27 Temperature Pulse Rate 55 L 57 L Respiratory Rate 21 H 18 Blood Pressure 155/66 H 158/67 H Pulse Oximetry 97 99 Oxygen Delivery Room Air Room Air Intake/Output Intake/Output: Intake & Output 01/22/23 01/23/23 01/24/23 01/25/23 23:59 23:59 23:59 23:59 Intake Total 3400 1000 Output Total 300 Balance 3100 1000 Meds/Results Medications: Active Medications Generic Name Dose Route Start Last Admin Trade Name Freq PRN Reason Stop Dose Admin Hydralazine HCl 10 mg 01/24/23 06:04 Hydralazine Hcl 20 Mg/Ml Vial IV PUSH Q4H PRN SBP greater than 160 Lactated Ringer's 1,000 mls @ 75 mls/hr 01/24/23 00:05 01/25/23 05:37 Lr - Lactated Ringers Iv IV CONT 75 mls/hr .[id number] SALMA Administration Levothyroxine Sodium 150 mcg 01/24/23 08:00 01/25/23 05:37 Levothyroxine Sodium 150 Mcg Tablet PO 150 mcg DAILY@0630 SALMA Administration Losartan Potassium 50 mg 01/24/23 09:00 01/24/23 09:11 Losartan Potassium 50 Mg Tablet PO 50 mg DAILY SALMA Administration Meclizine HCl 25 mg 01/24/23 07:56 Meclizine Hcl 25 Mg Tablet PO TID PRN dizziness Melatonin 10 mg 01/24/23 07:56 01/24/23 21:37 Melatonin 5 Mg Tablet PO 10 mg HS PRN Administration Insomnia Pantoprazole Sodium 40 mg 01/24/23 09:00 01/25/23 08:57 Pantoprazole Sodium Iv 40 Mg Vial IV PUSH 40 mg Q12HR SALMA Administration Radiology Results: ITS Impressions Chest X-Ray 01/23/23 22:14 IMPRESSION: No acute cardiopulmonary process. Abdomen/Pelvis CT 01/23/23 23:00 IMPRESSION: 1. Duodenal ulcer with significant surrounding duodenitis, and evidence of early ulcer wall breakdown, indicating a risk of perforation. 2. 1.5 cm indeterminate density left midpole lesion. Recommend nonemergent, outpatient renal MRI for further characterization. Labs Labs: Laboratory Results - last 24 hr 01/25/23 01/25/23 07:46 07:46 WBC 5.2 RBC 4.02 L Hgb 12.2 Hct 36.6 L MCV 91.0 MCH 30.3 MCHC 33.3 RDW 15.0 H Plt Count 203 MPV 11.9 H Sodium 138 Potassium 3.6 Chloride 114 H Carbon Dioxide 21 L Anion Gap 3 L BUN 22 H Creatinine 0.90 Estim Creat Clear Calc 41 Estimated GFR 60 Glucose 78 Calcium 8.8 Magnesium 1.7
[2023-01-25] MEDS: LOSARTAN POTASSIUM 50 MG TABLET PO (12:39)
[2023-01-25 13:35] LABS: Toxigenic C. Diff NEGATIVE (NEGATIVE)
[2023-01-25] MEDS: MELATONIN 5 MG TABLET 10 MG PO (20:59)
[2023-01-26] MEDS: LACTATED RINGERS 1,000 ML 75 ML IV CONT (03:28)
[2023-01-26 05:10] VITALS: BP 121/74; PULSE 53; RESP 18; TEMP 36.2; O2SAT 99
[2023-01-26] MEDS: LEVOTHYROXINE SODIUM 150 MCG TABLET PO (05:11)
[2023-01-26 06:41] LABS: Anion Gap 5 mmol/L (8-16); Blood Urea Nitrogen 20 mg/dL (7-17); Calcium 8.9 mg/dL (8.4-10.2); Carbon Dioxide 23 mmol/L (22-30); Chloride 112 mmol/L (98-107); Estimated CRCL calculation 41 ml/min; Estimated Glomerular Filt Rate 60; Glucose 84 mg/dL (65-110); Magnesium 1.6 mg/dL (1.6-2.3); Potassium 3.5 mmol/L (3.4-5.0); Sodium 140 mmol/L (137-145)
--- NOTE | 2023-01-26 07:15 | WPDGIPROGNO ---
Progress Note: A&P Assessment and Plan (1) Duodenal ulcer: Code(s): K26.9 - Duodenal ulcer, unspecified as acute or chronic, without hemorrhage or perforation Status: Acute Assessment and Plan: She had a large duodenal ulcer last year which had healed on follow-up EGD. Now it appears, based on CT scan, that she again has a duodenal ulcer. The report suggests that it may be thin walled, penetrating. We will definitely keep her on pantoprazole. She is receiving it twice a day now. I told her that we will have her on this indefinitely and will at some point repeat EGD to confirm the CT findings. (2) Abnormal CT of the abdomen: Code(s): R93.5 - Abnormal findings on diagnostic imaging of other abdominal regions, including retroperitoneum Status: Acute Assessment and Plan: As noted above, it appears that she has another duodenal ulcer. This could of course be vestiges of her previous ulcer (3) Acute dehydration: Code(s): E86.0 - Dehydration Status: Acute Assessment and Plan: BUN was elevated on admission and she was also hemoconcentrated with a high hemoglobin. She is still thirsty She had been kept NPO. I will start her on a clear liquid diet. (4) Diarrhea: Code(s): R19.7 - Diarrhea, unspecified Status: Acute Assessment and Plan: Diarrhea has been issue on and off for at least 9 months. Cultures were negative last fall and again C diff is negative this time. I doubt infectious etiology. I am unable to find documentation of a colonoscopy in the last 20 years. I will order calprotectin level to rule out inflammatory bowel disease. 01/26/2023 colonoscopy yesterday revealed normal colonic mucosa. With no evidence of inflammation that would be suggestive of infection or inflammatory bowel disease. I did take biopsies for microscopic colitis and those are pending. She has small polyp that removed from the sigmoid colon and more proximal polyp that was too large to safely remove and was partly removed. I told her that I think at this point we will treat her with Imodium, 4 mg each morning until we know more. She can follow-up with me in the office Plan okay to discharge on Imodium, 4 mg per day and a regular diet. Attempts to change the amount of fiber in her diet cause her great deal of anxiety. I will see her in the office in 2 weeks. Subjective Date/time seen: 01/26/23 07:15 the patient has been up for several hours. The nursing staff states that she has been anxious. She talks a lot about her diet. One On admission told her she would need to be on a high-fiber diet. We are not certain why that was brought up. I actually put her on low-fiber thinking with the large ulcer we do not want to put too much strain on that. She perseverates about the fact that she will know what the when she goes home. I told her that we will simply let her eat whatever she wants. She is still having loose stools and is afraid of being found I told her that so far does not appear to be infectious issue. There was no evidence of inflammatory bowel disease. Biopsies were obtained to rule out microscopic colitis and those are pending. I told her that for now we will have her take 2 loperamide tablets every morning. Exam Const: General: alert Orientation/consciousness: patient oriented x3 Resp: Auscultation: clear to auscultation bilaterally Cardio: Rhythm: regular rhythm GI: GI Palp: Yes Soft to palpation and No Tenderness to palpation present (GI) Neuro: General: patient oriented x3 Objective Data Vital Signs Vital Signs: Vital Signs - 24 hr 01/25/23 09:35 01/25/23 11:11 01/25/23 11:22 Temperature 36.3 C L Pulse Rate 51 L 55 L 55 L Respiratory Rate 20 22 H 21 H Blood Pressure 142/54 H 155/70 H 155/66 H Pulse Oximetry 97 97 97 Oxygen Delivery Room Air Room Air Room Air 01/25/23 11:27 01/25/23 14:00 01/25/23 21:22 Temperature 36.5 C 36.8 C Pulse Ra
[2023-01-26 08:26] LABS: Hematocrit 35.5 % (37.0-47.0); Hemoglobin 12.3 g/dL (12.0-15.0); Mean Corpuscular HGB Conc 34.6 g/dl (32-36); Mean Corpuscular Hemoglobin 30.4 pg (26-34); Mean Corpuscular Volume 87.9 fl (80-100); Mean Platelet Volume 12.4 fl (7.4-10.4); Platelet Count Result 205 k/mm3 (150-375); Red Blood Count 4.04 M/mm3 (4.2-5.4); Red Cell Distribution Width 14.7 % (11.5-14.5); White Blood Count 6.9 K/mm3 (4.5-10.0)
--- NOTE | 2023-01-26 09:00 | WPDANESPN ---
Anes - Prog Note Post-Op Date/Time: 01/26/23 09:00 Cardiovascular status: normal Respiratory status: normal Airway patency: baseline Mental status: baseline Post-Op hydration status: normal Vital Signs: Last Vital Signs Temp 97.2 F L 01/26/23 05:10 Pulse 53 L 01/26/23 05:10 Resp 18 01/26/23 05:10 BP 121/74 01/26/23 05:10 Pulse Ox 99 01/26/23 05:10 O2 Del Method Room Air 01/25/23 20:00 Pain Score (VAS): 0/10 I/O: Intake & Output 01/25/23 01/26/23 01/26/23 23:59 07:59 15:59 Intake Total 1700 240 Output Total 600 500 Balance 1100 -260 Laboratory Tests 01/26/23 07:47 01/26/23 06:08 01/25/23 01/26/23 01/26/23 11:22 06:08 07:47 WBC 6.9 RBC 4.04 L Hgb 12.3 Hct 35.5 L MCV 87.9 MCH 30.4 MCHC 34.6 RDW 14.7 H Plt Count 205 MPV 12.4 H Sodium 140 Potassium 3.5 Chloride 112 H Carbon Dioxide 23 Anion Gap 5 L BUN 20 H Creatinine 0.90 Estim Creat Clear Calc 41 Estimated GFR 60 Glucose 84 Calcium 8.9 Magnesium 1.6 C. difficile (PCR) Negative Microbiology 01/23/23 23:13 Urine Clean Catch Urine Culture - Final Post-procedural complaints: none Patient Feedback: Patient satisfied with anesthetic care.
[2023-01-26] MEDS: PANTOPRAZOLE SODIUM IV 40 MG VIAL IV PUSH (09:32)
[2023-01-26] MEDS: LOPERAMIDE HCL 2 MG CAPSULE 4 MG PO (09:32)
[2023-01-26] MEDS: LOSARTAN POTASSIUM 50 MG TABLET PO (09:33)
--- NOTE | 2023-01-26 10:47 | PM.DS ---
DS: Admitting Diagnosis Discharge Date January 26, 2023 Admitting Diagnosis Duodenal ulcer DS: Discharge Diagnosis Discharge Diagnosis (1) Duodenal ulcer: Code(s): K26.9 - Duodenal ulcer, unspecified as acute or chronic, without hemorrhage or perforation Status: Acute Assessment and Plan: Appreciate GI input, continue PPI. Plan for scope. (2) Nausea & vomiting: Code(s): R11.2 - Nausea with vomiting, unspecified Status: Acute Assessment and Plan: Monitor (3) Acute diarrhea: Code(s): R19.7 - Diarrhea, unspecified Status: Acute Assessment and Plan: Acute on chronic diarrhea (4) Acute dehydration: Code(s): E86.0 - Dehydration Status: Acute DS: Summary Hospital Course Hospital Course: 8-year-old female came of nausea vomiting and diarrhea CT scan showed likely duodenal ulcer this was known from her prior admissions. GI was consulted. She did undergo a colonoscopy for her diarrhea. Biopsy results pending. Diverticulosis noted. Nonetheless she will also need EGD as an outpatient she can follow-up with GI for this. Time Spent with Patient Time attestation: Total time spent providing and/or coordinating discharge services: Exam Narrative: Moderately obese elderly frail Patient is comfortable, NAD HEENT: eyes are clear and none icteric LUNGS: Normal respiratory effort ABD: BS+, Soft and Lower extremities: no edema SKIN: nonjaundiced Neuro: grossly intact. DS: Data Data Completed and Pending Pending studies at discharge: Pending at discharge 01/25/23 11:11 Surgical [PTH] Routine Labs on day of discharge: Labs from last 24 hours 01/26/23 01/26/23 01/25/23 07:47 06:08 11:22 WBC 6.9 RBC 4.04 L Hgb 12.3 Hct 35.5 L MCV 87.9 MCH 30.4 MCHC 34.6 RDW 14.7 H Plt Count 205 MPV 12.4 H Sodium 140 Potassium 3.5 Chloride 112 H Carbon Dioxide 23 Anion Gap 5 L BUN 20 H Creatinine 0.90 Estim Creat Clear Calc 41 Estimated GFR 60 Glucose 84 Calcium 8.9 Magnesium 1.6 C. difficile (PCR) Negative Discharge Plan Discharge Attending physician on discharge: Henry Churchill Consulting providers: Chele Hernandez Discharging Clinician: Henry Churchill Patient Disposition: Home, Self-Care Activity: no preference Diet: as tolerated Patient Instructions: Antibiotic Form Stand Alone Forms: General Discharge Information Follow-up/Referrals: Chele Hernandez MD [Physician] - Henry Hinojosa MD [Primary Care Provider] - Discharge Medications: New loperamide 2 mg Capsule 4 mg PO DAILY 30 Days Qty: 60 0RF pantoprazole 40 mg tablet,delayed release (DR/EC) 40 mg PO BID 30 Days Qty: 60 0RF Continued losartan 50 mg tablet 50 mg PO DAILY 90 Days Qty: 90 1RF melatonin 10 mg Tablet 10 mg PO HS PRN (Reason: Insomnia) meclizine 25 mg tablet 25 mg PO TID PRN (Reason: dizziness) Qty: 90 0RF levothyroxine [Euthyrox] 150 mcg tablet 150 mcg PO DAILY Qty: 90 1RF Date of admission: 01/24/23 00:02 Primary Care Provider: Henry Hinojosa Admitting Provider: Macy Reed Attending physician on admission: Macy Reed Condition: Guarded Prognosis
== END 2023-01-26 12:10 | disposition home or self-care (01) ==
LOC: ANHED 23:59 → ANH3MEDSUR 01-25 08:17
PROVIDERS: Emergency Medicine; Family Medicine; Internal Medicine Gastroenterology; Admitting Provider Internal Medicine; Emergency Provider Emergency Medicine; PCP Emergency Medicine; Visit Provider Chiropractor
PROC: 0DJD8ZZ Inspection of Lower Intestinal Tract, Via Natural or Artificial Opening Endoscopic (ICD-10-PCS; CPT 45378; principal; 2023-01-25 11:30)
DX: K26.9 Duodenal ulcer, unspecified as acute or chronic, without hemorrhage or perforation (principal); D12.5 Benign neoplasm of sigmoid colon; D12.3 Benign neoplasm of transverse colon; K57.30 Diverticulosis of large intestine without perforation or abscess without bleeding; K29.80 Duodenitis without bleeding; R93.5 Abnormal findings on diagnostic imaging of other abdominal regions, including retroperitoneum; E03.9 Hypothyroidism, unspecified; E86.0 Dehydration; K21.00 Gastro-esophageal reflux disease with esophagitis, without bleeding; Z20.822 Contact with and (suspected) exposure to COVID-19; F41.9 Anxiety disorder, unspecified; F32.A Depression, unspecified; J44.9 Chronic obstructive pulmonary disease, unspecified; I10 Essential (primary) hypertension; M06.9 Rheumatoid arthritis, unspecified; E55.9 Vitamin D deficiency, unspecified; Z66 Do not resuscitate; E66.3 Overweight; Z68.28 Body mass index [BMI] 28.0-28.9, adult; Z86.718 Personal history of other venous thrombosis and embolism; Z87.891 Personal history of nicotine dependence; Z79.899 Other long term (current) drug therapy
CPT/HCPCS: 45381; 45380; 45385; 36415; 71045; 74177; 80048; 80053; 81001; 83690; 83735; 84443; 85025; 85027; 87045; 87086; 87269; 87272; 87427; 87493; 87637; 88305; 96361; 96374; 99285; A9270; C9113; G0378; J2405; J2704; J7030; J7120; Q9967

== ENCOUNTER 2023-04-26 01:43 | Day surgery (SDC) | payer MEDICARE, MEDICAID, SELFPAY ==
[2023-04-10 14:55] VITALS: BMI 34.5
--- NOTE | 2023-04-26 08:55 | SUR.PREOP ---
Reported to Dr. Campbell a BP of 191/62 pre op. No orders were given.
[2023-04-26 08:59] VITALS: BP 191/62; PULSE 51; RESP 18; TEMP 36.3; O2SAT 96; BMI 27.8
[2023-04-26] MEDS: LACTATED RINGERS 1,000 ML 150 ML IV CONT (09:09)
--- NOTE | 2023-04-26 09:24 | PM.HPGS ---
History of Present Illness History of Present Illness Consent: Risks, benefits, and alternatives have been discussed and questions answered. Patient agrees to proceed with procedure. Chief complaint: Abnormal Radiology Findings Narrative: Arielle Pittman is a 82 year old female who was found have a very large duodenal ulcer last year.? A subsequent EGD revealed that it had healed, but a recent CT scan suggested that is present again. Review of Systems Review of Systems: All systems reviewed & are unremarkable except as noted in HPI and below PMFSH Past Medical History Medical History Anxiety and depression Chronic venous stasis dermatitis COPD mixed type Depression DVT (deep venous thrombosis) Gastroesophageal reflux disease Hyperglycemia Hypertension Hypothyroidism (acquired) Kidney stones Right kidney stone December 2018 PVD (peripheral vascular disease) red legs s/p bermudez Rheumatoid arthritis Small bowel obstruction Umbilical hernia Vitamin D deficiency Surgical History Surgical History History of section X1 History of cholecystectomy History of evacuation of hematoma Of lateral thigh 2013 Status post cataract extraction of both eyes with insertion of intraocular lens 2003 Family History Family History Sibling Patient's sister is in good health Mother Diabetes mellitus, Onset Age: 41 Father Heart attack Cardiovascular disease Social History Social History Social History: Primary care physician: Dr. Henry Hinojosa Code status: DNR/DNI Medical POA: Fatemeh Pittman (daughter). Alternate surrogate decision maker: Rubens Stone, activity specialist. Smoking packs per day: 2 Smoking cigarettes per day: 40.0 Years smoked: 50 Smoking pack-years: 100.00 Smoking status: Former smoker Tobacco type: cigarettes Second hand tobacco smoke exposure: No Smoking end date: 08/20/17 Alcohol intake: never Substance use: never Substance use type: does not use Lack of Transportation: No Lack of Food: Never True Current Housing: I Have Housing Concerned About Future Housing: No Difficulty Paying Gas/Electric Bills: No Difficulty Paying for Meds: No Currently Unemployed: No Education: High School Diploma/GED Difficulty w/ Childcare or Family Care: No Living arrangements: with friend(s) Additional living arrangements comments: lives with activity specialist/friend rubens Occupation/Education: retired 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 Spiritual care concerns: No Meds Home Medications and Allergies Home Medications Medication Instructions Recorded Confirmed Type meclizine 25 mg tablet 25 mg PO TID PRN dizziness #90 tabs 08/15/22 04/26/23 Rx losartan 50 mg tablet 50 mg PO DAILY 90 days #90 tabs 12/23/22 04/26/23 Rx loperamide 2 mg capsule 4 mg PO DAILY 30 days #60 caps 01/26/23 04/26/23 Rx levothyroxine 150 mcg tablet See Rx Instructions .Route 04/12/23 04/26/23 Rx .COMPLEX #90 tabs pantoprazole 40 mg tablet,delayed 40 mg PO BID 30 days #180 tabs 04/12/23 04/26/23 Rx release Allergies Allergy/AdvReac Type Severity Reaction Status Date / Time Penicillins Allergy Severe Hives Verified 04/26/23 08:58 Vital Signs Vital Signs - 24 hr 04/26/23 08:59 Temperature 36.3 C L Pulse Rate 51 L Respiratory Rate 18 Blood Pressure 191/62 H Pulse Oximetry 96 Oxygen Delivery Room Air Exam Const: General: alert Orientation/consciousness: patient oriented x3 Resp: Auscultation: clear to auscultation bilaterally Cardio: Rhythm: regular rhythm GI: GI Palp: Yes Soft to palpation and No Tenderness to palpation present (GI) Neuro: General: patient oriented x3 Assessment and Plan Asses
--- NOTE | 2023-04-26 09:49 | WPDANESEPPF ---
Anes - Initial Pre Proc Eval Procedure: Operation Date: 04/26/23 14:00 Proposed Procedures p Esophagogastroduodenoscopy - Chele Hernandez MD Date/Time: 04/26/23 09:49 Surgeon: Chele Hernandez MD Pre Op Diagnosis: Abnormal Radiology Findings Patient Data Age: 82 Gender: F Height: 1.52 m Weight: 64.8 kg Last Vital Signs Temp 97.3 F L 04/26/23 08:59 Pulse 51 L 04/26/23 08:59 Resp 18 04/26/23 08:59 BP 191/62 H 04/26/23 08:59 Pulse Ox 96 04/26/23 08:59 O2 Del Method Room Air 04/26/23 08:59 Allergies Allergy/AdvReac Type Severity Reaction Status Date / Time Penicillins Allergy Severe Hives Verified 04/26/23 08:58 Home Medications Medication Instructions Recorded Confirmed Type meclizine 25 mg tablet 25 mg PO TID PRN dizziness #90 tabs 08/15/22 04/26/23 Rx losartan 50 mg tablet 50 mg PO DAILY 90 days #90 tabs 12/23/22 04/26/23 Rx loperamide 2 mg capsule 4 mg PO DAILY 30 days #60 caps 01/26/23 04/26/23 Rx levothyroxine 150 mcg tablet See Rx Instructions .Route 04/12/23 04/26/23 Rx .COMPLEX #90 tabs pantoprazole 40 mg tablet,delayed 40 mg PO BID 30 days #180 tabs 04/12/23 04/26/23 Rx release Patient hx anesthesia problems: none Family hx anesthesia problems: none Results Review: All pre-operative results and documents have been reviewed as part of the pre-operative evaluation. [facility] Past Medical History Medical History Anxiety and depression Chronic venous stasis dermatitis COPD mixed type Depression DVT (deep venous thrombosis) Gastroesophageal reflux disease Hyperglycemia Hypertension Hypothyroidism (acquired) Kidney stones Right kidney stone December 2018 PVD (peripheral vascular disease) red legs s/p bermudez Rheumatoid arthritis Small bowel obstruction Umbilical hernia Vitamin D deficiency Surgical History Surgical History History of section X1 History of cholecystectomy History of evacuation of hematoma Of lateral thigh 2014 Status post cataract extraction of both eyes with insertion of intraocular lens 2003 Family History Family History Sibling Patient's sister is in good health Mother Diabetes mellitus, Onset Age: 41 Father Heart attack Cardiovascular disease Social History Social History Social History: Primary care physician: Dr. Henry Hinojosa Code status: DNR/DNI Medical POA: Fatemeh Pittman (daughter). Alternate surrogate decision maker: Rubens Stone, dye weigher. Smoking packs per day: 2 Smoking cigarettes per day: 40.0 Years smoked: 50 Smoking pack-years: 100.00 Smoking status: Former smoker Tobacco type: cigarettes Second hand tobacco smoke exposure: No Smoking end date: 08/20/17 Alcohol intake: never Substance use: never Substance use type: does not use Lack of Transportation: No Lack of Food: Never True Current Housing: I Have Housing Concerned About Future Housing: No Difficulty Paying Gas/Electric Bills: No Difficulty Paying for Meds: No Currently Unemployed: No Education: High School Diploma/GED Difficulty w/ Childcare or Family Care: No Living arrangements: with friend(s) Additional living arrangements comments: lives with dye weigher/friend rubens Occupation/Education: retired 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 Spiritual care concerns: No Anes - Eval Final PreProcedure Day of Procedure 04/26/23 09:49 Patient weight: normal Heart: regular rate and rhythm Lungs: clear to auscultation Airway: Mallampati scale class II Neurological: alert and oriented Last oral intake: >/= 8 hours ASA classification: III Emergent: no Anesthetic plan: proceed Anesthesia type and monitoring: general GIVS an
[2023-04-26 10:35] VITALS: BP 133/67; PULSE 52; RESP 19; O2SAT 92
[2023-04-26 10:45] VITALS: BP 140/72; PULSE 53; RESP 17; O2SAT 97
[2023-04-26 10:55] VITALS: BP 164/78; PULSE 55; RESP 17; O2SAT 99
--- NOTE | 2023-04-26 11:08 | SUR.PHASEII ---
[facility] called spoke to Antony who states he will not be here for another hour eta 1210.
== END 2023-04-26 11:44 | disposition home or self-care (01) ==
PROVIDERS: PCP Emergency Medicine; Visit Provider Internal Medicine Gastroenterology
PROC: 0DJ08ZZ Inspection of Upper Intestinal Tract, Via Natural or Artificial Opening Endoscopic (ICD-10-PCS; CPT 43235; principal; 2023-04-26 14:00)
DX: K21.9 Gastro-esophageal reflux disease without esophagitis (principal); Z87.11 Personal history of peptic ulcer disease; I10 Essential (primary) hypertension; E03.9 Hypothyroidism, unspecified; M06.9 Rheumatoid arthritis, unspecified; J44.9 Chronic obstructive pulmonary disease, unspecified; I87.8 Other specified disorders of veins; F41.8 Other specified anxiety disorders; I73.9 Peripheral vascular disease, unspecified; Z86.718 Personal history of other venous thrombosis and embolism; E55.9 Vitamin D deficiency, unspecified; Z87.891 Personal history of nicotine dependence
CPT/HCPCS: 43235; J2704; J7120

== ENCOUNTER 2023-08-31 15:09 | Observation (INO) | payer MEDICARE, MEDICAID, SELFPAY ==
[2023-08-31] VITALS (7 sets, daily range): BP systolic 113–146; BP diastolic 42–65; PULSE 56–64; RESP 15–20; TEMP 36.6; O2SAT 97–100; BMI 27.5
--- NOTE | ~2023-08-31 | CT_ITS ---
EXAMINATION: CT brain wo con INDICATION: Transient alteration of awareness COMPARISON: 04/27/2022 TECHNIQUE: Standard unenhanced head CT. The dose-length product (DLP) was 605.33 mGy-cm. The mA was a djusted according to patient size. Iterative reconstruction technique was employed. FINDINGS: No acute intraparenchymal hemorrhage. No evidence of mass lesion. No evidence of acute infa rction. 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 There is mild pe riventricular and subcortical hypodensity probably related to small vessel ischemic disease. There is mild prominence of the sulci and ventricles related to cerebral atrophy. Intracranial calcified cere bral atherosclerosis is noted. No extra-axial collections. No mass effect or midline shift. The orbit s and soft tissues are unremarkable. The visualized sinuses and mastoid air cells are well aerated. IMPRESSION: 1. Areas of prior infarction without acute intracranial abnormality. 2. Age related findings. Reviewed, dictated and finalized at location F.
--- NOTE | ~2023-08-31 | XR_ITS ---
XR chest 2V 08/31/2023 16:05 Indication: Syncope. Hypertension. COPD. Procedure: AP and lateral views of the chest Comparison: Comparison to multiple prior studies sequentially, with oldest reviewed study dated 02/22. Findings: Heart size normal. No focal air space disease, pulmonary edema, pleural effusion or suspect ed pneumothorax. There is diffuse idiopathic skeletal hyperostosis (DISH) of the thoracic spine. Heal ed right humeral neck fracture with angulation. Impression: 1: No acute cardiopulmonary disease. Reviewed, dictated and finalized at location L. Impression: 1: No acute cardiopulmonary disease.
--- NOTE | 2023-08-31 15:13 | PC.NURSE ---
BS 118
--- NOTE | 2023-08-31 15:14 | ECG_ITS ---
Measurements Intervals [place] Rate: 61 P: 99 DE: 161 QRS: -40 QRSD: 141 T: 38 QT: 442 QTc: 448 Interpretive Statements SINUS RHYTHM MARKED LEFT AXIS DEVIATION [QRS AXIS < -30] RIGHT BUNDLE BRANCH BLOCK [120+ ms QRS DURATION, UPRIGHT V1, 40+ ms S IN I/aVL/V4/V5/V6] COMPARED TO ECG 09/05/2022 12:15:40 NO SIGNIFICANT CHANGE Electronically Signed On 08-31-2023 19:58:14 CDT by Bridget Frazier M.D.
[2023-08-31 15:16] LABS: Glucose Point of Care 118 mg/dl (65-105)
--- NOTE | 2023-08-31 15:32 | ED.SYNCOPE ---
HPI - Syncope General Chief Complaint: Syncope <Lavern Borrego PA-C - Last Filed: 08/31/23 18:24> Stated Complaint: syncopal <DANIEL Drew Last Filed: 08/31/23 18:24> Time Seen by Provider: 08/31/23 15:23 <Lavern Borrego PA-C - Last Filed: 08/31/23 18:24> Source: patient and EMS <DANIEL Drew Last Filed: 08/31/23 18:24> Mode of arrival: EMS <DANIEL Drew Last Filed: 08/31/23 18:24> Limitations: other (patient does not fully remember incident) <DANIEL Drew Last Filed: 08/31/23 18:24> History of Present Illness HPI narrative: This is a 83 year old female that presents to the ER for a syncopal episode today. Reports she was about to get up to eat a cheeseburger and she felt lightheaded. Reports waking up on the floor. Denies vision changes, vomiting, numbness, weakness, chest pain, shortness of breath, or palpitations. <DANIEL Drew Last Filed: 08/31/23 18:24> Related Data Home Medications: Home Medications Medication Instructions Recorded Confirmed levothyroxine 150 mcg tablet 150 mcg PO DAILY 08/31/23 08/31/23 meclizine 25 mg tablet 25 mg PO Q8H PRN Dizziness 08/31/23 08/31/23 <Lavern Borrego PA-C - Last Filed: 08/31/23 18:24> Allergies/Adverse Reactions: Allergies Allergy/AdvReac Type Severity Reaction Status Date / Time Penicillins Allergy Severe Hives Verified 08/31/23 15:13 <DANIEL Drew Last Filed: 08/31/23 18:24> Review of Systems Review of Systems: CONSTITUTIONAL: Denies fever EYES: Denies visual changes CARDIOVASCULAR: Denies chest pain, palpitations, or edema. RESPIRATORY: Denies dyspnea. GASTROINTESTINAL: Denies vomiting MUSCULOSKELETAL: Denies back pain, joint pain, or myalgia. NEUROLOGIC: Denies numbness, or weakness. <Lavern Borrego PA-C - Last Filed: 08/31/23 18:24> All systems reviewed & are unremarkable except as noted in HPI and below <Lavern Borrego PA-C - Last Filed: 08/31/23 18:24> [facility] Past Medical History Medical History: Medical History Anxiety and depression Chronic venous stasis dermatitis COPD mixed type Depression DVT (deep venous thrombosis) Gastroesophageal reflux disease Hyperglycemia Hypertension Hypothyroidism (acquired) Kidney stones Right kidney stone December 2018 PVD (peripheral vascular disease) red legs s/p bermudez Rheumatoid arthritis Small bowel obstruction Umbilical hernia Vitamin D deficiency <Lavern Borrego PA-C - Last Filed: 08/31/23 18:24> Surgical History Surgical History: Surgical History History of section X1 History of cholecystectomy History of evacuation of hematoma Of lateral thigh 2013 Status post cataract extraction of both eyes with insertion of intraocular lens 2003 <Lavern Borrego PA-C - Last Filed: 08/31/23 18:24> Family History Family History: Family History Sibling Patient's sister is in good health Mother Diabetes mellitus, Onset Age: 41 Father Heart attack Cardiovascular disease <Lavern Borrego PA-C - Last Filed: 08/31/23 18:24> Social History Social History: Social History Social History: Primary care physician: Dr. Henry Hinojosa Code status: DNR/DNI Medical POA: Fatemeh Pittman (daughter). Alternate surrogate decision maker: Karuna Stone, [employer] reseller. Smoking packs per day: 2 Smoking cigarettes per day: 40.0 Years smoked: 50 Smoking pack-years: 100.00 Smoking status: Former smoker Tobacco type: cigarettes Second hand tobacco smoke exposure: No Smoking end date: 08/20/17 Alcohol intake: never Substance use: never Substance use type: does not use Lack of Transportation: Y
[2023-08-31] MEDS: SODIUM CHLORIDE 0.9% IV 500 ML 999 ML IV CONT ×2 (15:46→18:37)
[2023-08-31 15:59] LABS: Basophils Absolute Auto 0.1 K/mm3 (0.0-0.1); Basophils Percent Auto 0.6 % (0.2-1.2); Eosinophils Percent Auto 0.4 % (0-4.4); Hematocrit 36.9 % (37.0-47.0); Hemoglobin 12.1 g/dL (12.0-15.0); Immature Granulocyte Absolute 0.06 K/mm3 (0.00-0.031); Immature Granulocyte Percent A 0.6 % (0-0.5); Lymphocytes Absolute Auto 1.29 K/mm3 (0.9-3.2); Mean Corpuscular HGB Conc 32.8 g/dl (32-36); Mean Corpuscular Hemoglobin 30.6 pg (26-34); Mean Corpuscular Volume 93.4 fl (80-100); Mean Platelet Volume 12.1 fl (7.4-10.4); Monocytes Absolute Auto 0.7 K/mm3 (0.1-0.6); Monocytes Percent Auto 6.7 % (2.6-8.5); Neutrophils Absolute Auto 7.8 K/mm3 (1.3-6.7); Neutrophils Percent Auto 78.7 % (45.5-73.1); Platelet Count Result 258 k/mm3 (150-375); Red Blood Count 3.95 M/mm3 (4.2-5.4); Red Cell Distribution Width 15.3 % (11.5-14.5)
[2023-08-31 16:07] LABS: Alanine Aminotransferase 13 U/L (6-35); Albumin Level 3.7 g/dL (3.5-5.1); Alkaline Phosphatase 82 U/L (38-126); Anion Gap 8 mmol/L (8-16); Aspartate Amino Transferase 21 U/L (14-36); Bilirubin,Total 0.9 mg/dL (0.2-1.3); Blood Urea Nitrogen 31 mg/dL (7-17); Calcium 8.9 mg/dL (8.4-10.2); Carbon Dioxide 21 mmol/L (22-30); Chloride 106 mmol/L (98-107); Estimated CRCL calculation 24 ml/min; Estimated Glomerular Filt Rate 36; Glucose 103 mg/dL (65-110); Potassium 4.2 mmol/L (3.4-5.0); Sodium 135 mmol/L (137-145)
[2023-08-31 16:18] LABS: Appearance Urine Turbid (Clear); Bacteria Urine 4+ /hpf; Bilirubin Urine Negative (Negative); Blood Urine 2+ (Negative); Color Urine Dark Yellow (Yellow); Glucose Urine UA Negative (Negative); Ketones Urine Negative (Negative); Leukocyte Esterase Ur 3+ LEU/UL (Negative); Need Manual Microscopic Reviewed; Nitrate Urine Positive (Negative); Protein Urine 2+ mg/dL (Negative); Specific Grav Ur 1.013 (1.001-1.035); Squamous Epithelial Cell Urine Occasional /hpf (Few); WBC Urine >100 /hpf; pH Urine 5.5 (5.0-9.0)
[2023-08-31 16:21] LABS: Add Urine Microscopic? YES
[2023-08-31 16:27] LABS: Troponin I 0.018 ng/mL (0.000-0.034)
--- NOTE | 2023-08-31 19:23 | PM.IMHP ---
H&P: HPI History of Present Illness Date/Time: 08/31/23 19:23 Chief Complaint: Syncope Narrative: 83-year-old female with past medical history significant for vertigo, GERD, chronic diarrhea, hypothyroidism. Patient presents to the emergency room after having witnessed syncopal episode at home while she was standing and collapsed to the ground. According to patient she has been in her usual state of health no fevers no rigors no chills no nausea no vomiting she is chronically with diarrhea, no cough, no sputum production. Preliminary workup was significant for urinalysis was numerous WBCs present. XR chest 2V 08/31/2023 16:05 Indication: Syncope. Hypertension. COPD. Procedure: AP and lateral views of the chest Comparison: Comparison to multiple prior studies sequentially, with oldest reviewed study dated? 02/22/2021. Findings: Heart size normal. No focal air space disease, pulmonary edema, pleural effusion or suspected pneumothorax. There is diffuse idiopathic skeletal hyperostosis (DISH) of the thoracic spine. Healed right humeral neck fracture with angulation. Impression: 1: No acute cardiopulmonary disease. EXAMINATION: CT brain wo con ? INDICATION: Transient alteration of awareness ? COMPARISON: 04/27/2022 TECHNIQUE: Standard unenhanced head CT. The dose-length product (DLP) was 605.33 mGy-cm. The mA was adjusted according to patient size. Iterative reconstruction technique was employed. ? FINDINGS: No acute intraparenchymal hemorrhage. No evidence of mass lesion. No evidence of acute infarction. 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 There is mild periventricular and subcortical hypodensity probably related to small vessel ischemic disease. There is mild prominence of the sulci and ventricles related to cerebral atrophy. Intracranial calcified cerebral atherosclerosis is noted. No extra-axial collections. No mass effect or midline shift. The orbits and soft tissues are unremarkable. The visualized sinuses and mastoid air cells are well aerated. IMPRESSION: 1. Areas of prior infarction without acute intracranial abnormality. 2. Age related findings. Review of Systems Review of Systems: Syncope Constitutional: Constitutional: Denies chills, Denies fever(s), Denies malaise, Denies night sweats and Denies weakness Eyes: Eyes: Denies change in vision ENT: Denies dysphagia, Reports vertigo and Denies odynophagia Cardiovascular: Cardiovascular: Denies chest pain, Denies leg edema, Denies radiating jaw, neck or arm pain and Denies palpitations Respiratory: Respiratory: Denies cough and Denies excessive phlegm production Gastrointestinal: Gastrointestinal: Denies abdominal pain, Denies dyspepsia, Denies heartburn, Reports diarrhea, Denies loose stools, Denies nausea and Denies vomiting Genitourinary: Genitourinary: Denies dysuria Musculoskeletal: Musculoskeletal: Denies myalgias and Denies muscle weakness Integumentary/Breasts: Skin/Breast: Denies rash Neurologic: Reports vertigo, Denies focal weakness and Denies Sensory deficit (Neuro) Psychiatric: Psychiatric: Reports no additional psychiatric complaints and Reports as per HPI Endocrine: Endocrine: Denies cold intolerance, Denies fatigue, Denies flushing, Denies heat intolerance, Denies polyphagia, Denies polydipsia and Denies palpitations Hematologic/Lymphatic: Hematologic/Lymphatic: Reports no additional hematologic/lymphatic complaints and Reports as per HPI Allergic/Immunologic: Allergic/Immunologic: Reports no additional allergic/immunologic complaints and Reports as per HPI PMFSH Past Medical History Medical History Anxiety and depression Chronic venous stasis dermatitis COPD mixed type Depression DVT (deep venous thrombosis) Gastroesophageal reflux disease Hyperglycemia Hypertension Hypothyroidism (acquired) Kidney stones Right kidney stone Febr
[2023-08-31 19:40] LABS: Troponin I 0.013 ng/mL (0.000-0.034)
--- NOTE | 2023-08-31 20:22 | ADMGEN ---
This patient, Arielle Pittman, was admitted to 2 Medical Room 244-. Patient/family oriented to hospital policies and general routines including ID bracelet, bed and alarms, visiting hours, pain management, procedures, bathroom and other care routines, personal items, smoking policy, room service/diet, and visiting hours. Information on how to activate the Rapid Response Team has been discussed. Patient/Family are encouraged to report perceived risks to care and to ask questions if they do not understand what they are told or what they should do.
[2023-08-31 22:12] LABS: Troponin I 0.016 ng/mL (0.000-0.034)
[2023-08-31] MEDS: LOPERAMIDE HCL 2 MG CAPSULE 4 MG PO (22:16)
[2023-09-01] VITALS (9 sets, daily range): BP systolic 139–158; BP diastolic 40–58; PULSE 53–58; RESP 16–18; TEMP 36.5–36.9; O2SAT 98–99
[2023-09-01] MEDS: DEXTROSE 5%/0.9% SOD CHL 1,000 ML 65 ML IV CONT (05:31)
[2023-09-01] MEDS: LEVOTHYROXINE SODIUM 150 MCG TABLET PO (05:31)
[2023-09-01] MEDS: LOPERAMIDE HCL 2 MG CAPSULE PO ×2 (10:32→15:21)
--- NOTE | 2023-09-01 14:43 | PM.IMPN ---
Progress Note: A&P Assessment and Plan (1) Syncope: Qualifiers: Syncope type: unspecified Qualified Code(s): R55 - Syncope and collapse Code(s): R55 - Syncope and collapse Status: Acute (2) Acute UTI: Code(s): N39.0 - Urinary tract infection, site not specified Status: Acute (3) JC (acute kidney injury): Code(s): N17.9 - Acute kidney failure, unspecified Status: Acute Plan 83 F w/ PMH COPD, anxiety and depression, venous stasis, DVT, GERD and PUD, HTN, hypothyroidism, chronic diarrhea presented after a witness syncopal episode at home. She was admitted on 08/31/23 for syncope. 1) syncope - JC as well, likely all due to dehydration and diarrhea and UTI - ct head negative. check orthostatic vitals. cont IV fluids and monitor on tele 2) UTI - ceftriaxone started on 08/31 - f/u cultures. appears non toxic 3) JC - likely 2/2 to hypovolemia - cont normal saline. trend BMP 4) chronic diarrhea - Dr. Hernandez outpatient aware. had suggested imodium. infectious work up negative. colonoscopy neg for microscopic colitis. cont imodium FEN: fluids, regular diet at patient's request GI prophylaxis: on protonix DVT prophylaxis: lovenox 30mg qday Lines: pIV Code Status: Full code Dispo:stable. expect d/c tomorrow More than 25 minutes spent on chart review, patient interaction and assessment and plan. Subjective Date/time seen: 09/01/23 14:43 Interval history: NAOE. pt did not want to talk to me unless she got a regular diet. no complaints otherwise. Review of Systems Review of Systems: All systems reviewed & are unremarkable except as noted in HPI and below Exam Const: General: comfortable and no acute distress Eyes: Pupils: Equal, round and reactive pupils present Resp: Effort & Inspection: normal respiratory effort Auscultation: clear to auscultation bilaterally Cardio: Rate: regular rate Rhythm: regular rhythm GI: Inspection: distended Auscultation: normal bowel sounds : Bimanual exam- vagina & uterus: bladder normal to palpation Extrem: General: no edema Objective Data Vital Signs Vital Signs: Vital Signs - 24 hr 08/31/23 15:09 08/31/23 15:16 08/31/23 17:05 Temperature 97.8 F Pulse Rate 61 63 61 Respiratory Rate 18 20 Blood Pressure 113/63 133/61 Pulse Oximetry 97 98 Oxygen Delivery Room Air 08/31/23 18:02 08/31/23 19:29 08/31/23 20:30 Temperature Pulse Rate 56 L 63 Respiratory Rate 18 15 Blood Pressure 140/65 146/65 H Pulse Oximetry 99 99 Oxygen Delivery Room Air 08/31/23 20:26 08/31/23 20:16 09/01/23 00:00 Temperature 97.8 F Pulse Rate 64 63 54 L Respiratory Rate 18 Blood Pressure 135/42 L Pulse Oximetry 100 Oxygen Delivery 09/01/23 04:00 09/01/23 05:56 09/01/23 08:00 Temperature 97.8 F Pulse Rate 54 L 56 L 53 L Respiratory Rate 18 Blood Pressure 139/58 L Pulse Oximetry 98 Oxygen Delivery 09/01/23 12:00 09/01/23 14:27 Temperature 97.7 F Pulse Rate 56 L 58 L Respiratory Rate 16 Blood Pressure 151/40 H Pulse Oximetry 99 Oxygen Delivery Intake/Output Intake/Output: Intake & Output 08/29/23 08/30/23 08/31/23 09/01/23 23:59 23:59 23:59 23:59 Intake Total 1050 560 Output Total 1400 Balance 1050 -840 Meds/Results Medications: Active Medications Generic Name Dose Route Start Last Admin Trade Name Freq PRN Reason Stop Dose Admin Ceftriaxone Sodium 1 gm in 50 mls @ 100 mls/hr 09/01/23 18:00 Rocephin 1 Gm/Ns 50 Ml IVPB Q24H SALMA Dextrose/Sodium Chloride 1,000 mls @ 65 mls/hr 09/01/23 01:20 09/01/23 05:31 Dextrose 5% Sodium Chloride 0.9% IV CONT 65 mls/hr .[id number] SALMA Administration Levothyroxine Sodium 150 mcg 09/01/23 06:30 09/01/23 05:31 Levothyroxine Sodium 150 Mcg Tablet PO 150 mcg DAILY@0630 SALMA Administration Loperamide HCl 2 mg 08/31/23 21:26 09/01/23 10:32 Loperamide Hcl 2 Mg Capsule PO 2
[2023-09-01] MEDS: SODIUM CHLORIDE 0.9% IV 1,000 ML 100 ML IV CONT (15:24)
[2023-09-01] MEDS: PANTOPRAZOLE 40 MG TABLET PO (21:04)
[2023-09-01] MEDS: MELATONIN 5 MG TABLET 10 MG PO (21:04)
[2023-09-02] VITALS: PULSE 57
[2023-09-02 04:00] VITALS: PULSE 50
[2023-09-02 05:18] VITALS: BP 174/61; PULSE 50; RESP 16; TEMP 36.6; O2SAT 98
[2023-09-02 06:07] LABS: Basophils Absolute Auto 0.1 K/mm3 (0.0-0.1); Basophils Percent Auto 0.7 % (0.2-1.2); Eosinophils Absolute Auto 0.2 K/mm3 (0-0.3); Eosinophils Percent Auto 2.4 % (0-4.4); Hemoglobin 10.8 g/dL (12.0-15.0); Immature Granulocyte Absolute 0.01 K/mm3 (0.00-0.031); Immature Granulocyte Percent A 0.1 % (0-0.5); Lymphocytes Absolute Auto 2.95 K/mm3 (0.9-3.2); Lymphocytes Percent Auto 43.8 % (18.3-44.2); Mean Corpuscular HGB Conc 31.8 g/dl (32-36); Mean Corpuscular Hemoglobin 29.9 pg (26-34); Mean Corpuscular Volume 94.2 fl (80-100); Mean Platelet Volume 12.4 fl (7.4-10.4); Monocytes Absolute Auto 0.5 K/mm3 (0.1-0.6); Platelet Count Result 263 k/mm3 (150-375); Red Blood Count 3.61 M/mm3 (4.2-5.4); Red Cell Distribution Width 15.1 % (11.5-14.5); White Blood Count 6.7 K/mm3 (4.5-10.0)
[2023-09-02 06:13] LABS: Anion Gap 3 mmol/L (8-16); Blood Urea Nitrogen 26 mg/dL (7-17); Calcium 8.2 mg/dL (8.4-10.2); Carbon Dioxide 25 mmol/L (22-30); Chloride 112 mmol/L (98-107); Estimated CRCL calculation 33 ml/min; Estimated Glomerular Filt Rate 53; Glucose 75 mg/dL (65-110); Magnesium 1.8 mg/dL (1.6-2.3); Potassium 4.2 mmol/L (3.4-5.0); Sodium 140 mmol/L (137-145)
[2023-09-02] MEDS: LEVOTHYROXINE SODIUM 150 MCG TABLET PO (06:17)
[2023-09-02 08:00] VITALS: PULSE 54
--- NOTE | 2023-09-02 08:31 | PM.DS ---
DS: Admitting Diagnosis Discharge Date 09/02/23 Admitting Diagnosis syncope DS: Discharge Diagnosis Discharge Diagnosis (1) Syncope: Qualifiers: Syncope type: unspecified Qualified Code(s): R55 - Syncope and collapse Code(s): R55 - Syncope and collapse Status: Acute (2) Acute UTI: Code(s): N39.0 - Urinary tract infection, site not specified Status: Acute (3) JC (acute kidney injury): Code(s): N17.9 - Acute kidney failure, unspecified Status: Acute (4) Chronic diarrhea: Code(s): K52.9 - Noninfective gastroenteritis and colitis, unspecified Status: Acute DS: Summary Hospital Course Hospital Course: 83F w/ PMH COPD, anxiety and depression, venous stasis, DVT, GERD, PUD, HTN, hypothyroidism, chronic diarrhea presented after a witnessed syncopal episode at home. She had been having diarrhea, which has been worked up by GI and was prescribed loperamide 4mg daily. Telemetry did not reveal a conduction abnormality, head CT was negative. She was given fluid resuscitation and treated for an e coli uncomplicated UTI, unsure if it was a contributing factor as she was otherwise nontoxic. She presented with an JC as well which resolved. Received 3 days of IV ceftriaxone. will be dc'ed in stable condition back to home with family and home health is setup for her. Pt knows to return if she is having symptoms again, but more importantly is to follow up with her PCP and Dr. Hernandez her GI specialist. We added loperamide prn as well and she knows to use this. was full code during her stay More than 30 minutes spent on discharge planning and documentation. Time Spent with Patient Time attestation: Total time spent providing and/or coordinating discharge services: Exam Const: General: cooperative and no acute distress Resp: Effort & Inspection: normal respiratory effort Auscultation: clear to auscultation bilaterally Cardio: Rate: regular rate Rhythm: regular rhythm Heart sounds: S1 normal heart sound present and S2 normal heart sound present GI: GI Palp: No abdominal tenderness Auscultation: normal bowel sounds DS: Data Data Completed and Pending Labs on day of discharge: Labs from last 24 hours 09/02/23 05:22 WBC 6.7 RBC 3.61 L Hgb 10.8 L Hct 34.0 L MCV 94.2 MCH 29.9 MCHC 31.8 L RDW 15.1 H Plt Count 263 MPV 12.4 H Immature Gran % (Auto) 0.1 Neut % (Auto) 45.0 L Lymph % (Auto) 43.8 O'Brien % (Auto) 8.0 Eos % (Auto) 2.4 Baso % (Auto) 0.7 Lymph # (Auto) 2.95 O'Brien # (Auto) 0.5 Eos # (Auto) 0.2 Baso # (Auto) 0.1 Abs Immat Gran (auto) 0.01 Absolute Neuts (auto) 3.0 Absolute Nucleated RBC 0.0 Nucleated RBC % 0.0 Sodium 140 Potassium 4.2 Chloride 112 H Carbon Dioxide 25 Anion Gap 3 L BUN 26 H Creatinine 1.00 Estim Creat Clear Calc 33 Estimated GFR 53 L Glucose 75 Calcium 8.2 L Magnesium 1.8 Preliminary micro results at discharge 08/31/23 15:43 Urine Culture - Preliminary Urine Catheterized Escherichia Coli Discharge Plan Discharge Attending physician on discharge: Carmen Art Consulting providers: Lavern Borrego Discharging Clinician: Carmen Art Patient Disposition: Home Health Service Activity: march shower Diet: heart healthy Discharge Instructions: As discussed, follow up with your stomach doctor for your chronic diarrhea. Home health is ordered. Stay hydrated. We have added as needed loperamide to your daily regimen. Patient Instructions: Antibiotic Form Stand Alone Forms: General Discharge Information Follow-up/Referrals: Henry Hinojosa MD [Primary Care Provider] - 1 Week (f/u on dehydration, diarrhea, UTI, weakness, home health) Discharge Medications: New loperamide 2 mg Capsule 2 mg PO .q2hr MDD 16mg/day PRN (Reason: Diarrhea) Qty: 90 1RF Continued losartan 50 mg tablet 50 mg PO DAILY 90 Days Qty: 90 1RF loperamide 2 mg Capsu
[2023-09-02] MEDS: PANTOPRAZOLE 40 MG TABLET PO (09:33)
[2023-09-02 12:00] VITALS: PULSE 58
[2023-09-02] MEDS: LOSARTAN POTASSIUM 25 MG TABLET PO (12:11)
[2023-09-02 14:00] VITALS: BP 148/59; PULSE 55; RESP 20; TEMP 36.6; O2SAT 98
--- NOTE | 2023-09-04 09:24 | PCCCNOTE ---
Received call from [facility] who reports they are not in network with pt.'s insurance and therefore they will not follow pt. at discharge. Did contact [facility] and per Rep Leydi they can start pt. Monday for services. Discharge disposition changed
== END 2023-09-02 16:45 | disposition home health service (06) ==
LOC: ANHED 18:21 → ANH2MED 09-01 08:41
PROVIDERS: Emergency Medicine; Admitting Provider Internal Medicine; Emergency Provider Physician Assistant; PCP Emergency Medicine; Visit Provider General Practice
DX: R55 Syncope and collapse (principal); N39.0 Urinary tract infection, site not specified; B96.20 Unspecified Escherichia coli [E. coli] as the cause of diseases classified elsewhere; N17.9 Acute kidney failure, unspecified; R42 Dizziness and giddiness; F41.9 Anxiety disorder, unspecified; Z23 Encounter for immunization; F32.A Depression, unspecified; I45.10 Unspecified right bundle-branch block; E78.2 Mixed hyperlipidemia; K21.9 Gastro-esophageal reflux disease without esophagitis; G47.00 Insomnia, unspecified; R19.7 Diarrhea, unspecified; J44.9 Chronic obstructive pulmonary disease, unspecified; R73.9 Hyperglycemia, unspecified; I10 Essential (primary) hypertension; I87.2 Venous insufficiency (chronic) (peripheral); E03.9 Hypothyroidism, unspecified; I49.3 Ventricular premature depolarization; M06.9 Rheumatoid arthritis, unspecified; E55.9 Vitamin D deficiency, unspecified; Z66 Do not resuscitate; Z86.718 Personal history of other venous thrombosis and embolism; Z87.891 Personal history of nicotine dependence; Z86.73 Personal history of transient ischemic attack (TIA), and cerebral infarction without residual deficits
CPT/HCPCS: 36415; 70450; 71046; 80048; 80053; 81001; 82948; 83735; 84484; 85025; 87077; 87086; 87186; 90471; 90694; 93005; 96361; 96365; 96375; 99285; A9270; G0008; G0378; J0696; J7030; J7040; J7042

== ENCOUNTER 2023-09-18 20:05 | Emergency (ER) | payer MEDICARE, MEDICAID, SELFPAY ==
[2023-09-18] VITALS (10 sets, daily range): BP systolic 173–208; BP diastolic 54–84; PULSE 46–100; RESP 11–23; TEMP 36.3; O2SAT 95–100
--- NOTE | ~2023-09-18 | XR_ITS ---
EXAMINATION: XR chest 1V portable DATE: 09/18/2023 21:10 INDICATION: Hypertension and dizziness TECHNIQUE: frontal view of the chest was obtained. COMPARISON: Chest radiograph dated 08/31/2023 FINDINGS: Mild streaky left basilar atelectasis. Lungs otherwise clear with no pulmonary edema, pleural effusio n or pneumothorax. Heart size is normal. Tortuous thoracic aorta. 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 IMPRESSION: 1. Mild left basilar atelectasis. No other acute cardiopulmonary disease. Reviewed, dictated and finalized at location [facility]. 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
--- NOTE | 2023-09-18 20:18 | ECG_ITS ---
Measurements Intervals [place] Rate: 54 P: 61 MA: 161 QRS: -36 QRSD: 144 T: 42 QT: 462 QTc: 438 Interpretive Statements SINUS BRADYCARDIA LEFT AXIS DEVIATION RIGHT BUNDLE BRANCH BLOCK ABNORMAL ECG COMPARED TO ECG 08/31/2023 15:18:55 SINUS BRADYCARDIA NOW PRESENT Electronically Signed On 09-19-2023 6:07:45 FOOD SAFETY DIRECTOR by Alphonso Nicole D.O.
--- NOTE | 2023-09-18 20:19 | ED.GENADULT ---
HPI - General Adult General Chief complaint: Recheck/Abnormal Lab/Rx Stated complaint: HTN Time Seen by Provider: 09/18/23 20:07 History of Present Illness HPI narrative: Patient brought to the emergency department by EMS from nursing facility. Concern for high blood pressure. She states she felt dizzy. Dizziness has resolved but she still does not feel well . Patient denies all other review of systems including headache chest pain shortness of breath and abdominal pain. Blood pressure 218 over 80s prior to arrival Related Data Home Medications Medication Instructions Recorded Confirmed levothyroxine 150 mcg tablet 150 mcg PO DAILY 08/31/23 08/31/23 meclizine 25 mg tablet 25 mg PO Q8H PRN Dizziness 08/31/23 08/31/23 melatonin 10 mg tablet 10 mg PO HS PRN Insomnia 08/31/23 08/31/23 Allergies Allergy/AdvReac Type Severity Reaction Status Date / Time Penicillins Allergy Severe Hives Verified 08/31/23 15:13 Review of Systems Review of Systems: Review of systems negative except what is documented in the HPI [facility] Past Medical History Medical History (Updated 09/19/23 @ 04:04 by Pooja Zaragoza MD) Anxiety and depression Chronic diarrhea Chronic venous stasis dermatitis COPD mixed type Depression DVT (deep venous thrombosis) Gastroesophageal reflux disease Hyperglycemia Hypertension Hypothyroidism (acquired) Kidney stones Right kidney stone December 2018 PVD (peripheral vascular disease) red legs s/p bermudez Rheumatoid arthritis Small bowel obstruction Umbilical hernia Vitamin D deficiency Surgical History Surgical History History of section X1 History of cholecystectomy History of evacuation of hematoma Of lateral thigh 2013 Status post cataract extraction of both eyes with insertion of intraocular lens 2003 Family History Family History Sibling Patient's sister is in good health Mother Diabetes mellitus, Onset Age: 41 Father Heart attack Cardiovascular disease Social History Social History Social History: Primary care physician: Dr. Henry Hinojosa Code status: DNR/DNI Medical POA: Fatemeh Pittman (daughter). Alternate surrogate decision maker: Rubens Stone, digital advertising specialist. Smoking packs per day: 2 Smoking cigarettes per day: 40.0 Years smoked: 50 Smoking pack-years: 100.00 Smoking status: Former smoker Tobacco type: cigarettes Second hand tobacco smoke exposure: No Smoking end date: 08/20/17 Alcohol intake: never Substance use: never Substance use type: does not use Lack of Transportation: YES Lack of Food: Never True Current Housing: I Have Housing Concerned About Future Housing: No Difficulty Paying Gas/Electric Bills: No Difficulty Paying for Meds: No Currently Unemployed: No Education: High School Diploma/GED Difficulty w/ Childcare or Family Care: No Living arrangements: with friend(s) Additional living arrangements comments: lives with digital advertising specialist/friend rubens Occupation/Education: retired 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 Spiritual care concerns: No Exam Narrative: GENERAL: Well-appearing, well-nourished, and in no acute distress. HEAD: Normocephalic, atraumatic. EYES: PERRLA and EOMI. ENT: Nares clear, no rhinorrhea or epistaxis. Mucous membranes moist. NECK: Supple. CHEST: Clear to auscultation. No respiratory distress. HEART: Regular rate and rhythm. ABDOMEN: Soft, nontender, nondistended. EXTREMITIES: Normal range of motion. No edema. SKIN: Warm, dry, no rash. NEURO: No focal deficits. Alert and oriented x3. PSYCH: Normal mood and affect. Course Vital Signs Vital signs: Vital Signs Temperature 36.3 C L 09/18/23 20:05 Pulse Rate 59 L 09/18/23 20:05 Respiratory
[2023-09-18 20:32] LABS: Basophils Absolute Auto 0.1 K/mm3 (0.0-0.1); Basophils Percent Auto 1.7 % (0.2-1.2); Eosinophils Absolute Auto 0.2 K/mm3 (0-0.3); Eosinophils Percent Auto 3.8 % (0-4.4); Hematocrit 35.2 % (37.0-47.0); Hemoglobin 11.1 g/dL (12.0-15.0); Immature Granulocyte Absolute 0.01 K/mm3 (0.00-0.031); Immature Granulocyte Percent A 0.2 % (0-0.5); Lymphocytes Absolute Auto 2.88 K/mm3 (0.9-3.2); Lymphocytes Percent Auto 45.4 % (18.3-44.2); Mean Corpuscular HGB Conc 31.5 g/dl (32-36); Mean Corpuscular Hemoglobin 29.8 pg (26-34); Mean Corpuscular Volume 94.6 fl (80-100); Mean Platelet Volume 12.2 fl (7.4-10.4); Monocytes Absolute Auto 0.5 K/mm3 (0.1-0.6); Monocytes Percent Auto 7.6 % (2.6-8.5); Neutrophils Absolute Auto 2.6 K/mm3 (1.3-6.7); Neutrophils Percent Auto 41.3 % (45.5-73.1); Platelet Count Result 250 k/mm3 (150-375); Red Blood Count 3.72 M/mm3 (4.2-5.4); Red Cell Distribution Width 15.5 % (11.5-14.5); White Blood Count 6.3 K/mm3 (4.5-10.0)
[2023-09-18 20:48] LABS: Alanine Aminotransferase 13 U/L (6-35); Albumin Level 3.6 g/dL (3.5-5.1); Alkaline Phosphatase 82 U/L (38-126); Anion Gap 9 mmol/L (8-16); Aspartate Amino Transferase 22 U/L (14-36); Bilirubin,Total 0.4 mg/dL (0.2-1.3); Blood Urea Nitrogen 31 mg/dL (7-17); Carbon Dioxide 25 mmol/L (22-30); Chloride 109 mmol/L (98-107); Estimated CRCL calculation 25 ml/min; Estimated Glomerular Filt Rate 36; Glucose 87 mg/dL (65-110); Sodium 143 mmol/L (137-145)
[2023-09-18 20:53] LABS: Potassium 4.5 mmol/L (3.4-5.0)
[2023-09-18 20:58] LABS: Appearance Urine Clear (Clear); Bacteria Urine 4+ /hpf; Bilirubin Urine Negative (Negative); Blood Urine Negative (Negative); Color Urine Yellow (Yellow); Glucose Urine UA Negative (Negative); Ketones Urine Negative (Negative); Leukocyte Esterase Ur Trace LEU/UL (Negative); Nitrate Urine Positive (Negative); Non Pathogenic Casts 0-2; Protein Urine Trace mg/dL (Negative); RBC Urine 0-2 /hpf (0-2); Specific Grav Ur 1.019 (1.001-1.035); Squamous Epithelial Cell Urine None seen /hpf (Few); Urobilinogen Urine 0.2 mg/dL (<2.0); WBC Urine 0-5 /hpf; pH Urine 5.5 (5.0-9.0)
[2023-09-18 20:58] LABS: Troponin I < 0.012 ng/mL (0.000-0.034)
[2023-09-18 21:14] LABS: Add Urine Microscopic? YES
[2023-09-18] MEDS: MECLIZINE HCL 25 MG TABLET PO (22:49)
[2023-09-18] MEDS: SODIUM CHLORIDE 0.9% IV 1,000 ML 999 ML IV CONT (22:50)
[2023-09-18] MEDS: cloNIDine HCL 0.1 MG TABLET 0.2 MG PO (23:16)
[2023-09-18 23:58] LABS: Troponin I 0.016 ng/mL (0.000-0.034)
[2023-09-19] VITALS (13 sets, daily range): BP systolic 136–190; BP diastolic 62–106; PULSE 44–61; RESP 12–22; TEMP 36.6; O2SAT 96–100
--- NOTE | 2023-09-19 01:53 | PC.NURSE ---
Per EDP Dr. Zaragoza the patient is medically cleared to go home. Patient states she does not have a ride home and thought that she could take an ambulance home. Patient does not meet criteria for ambulance unless she pays out of pocket. Patient states she cannot pay for ambulance. Patient also states she cannot take a cab home since they don't want to take responsibility. Patient states the only person she knows is her caregiver and that her caregivers car is broken down.
--- NOTE | 2023-09-19 05:30 | PC.NURSE ---
Patients blood pressure was 190/76 and HR was 55. Notified EDP Dr. Zaragoza who was still ok with patient being discharged.
== END 2023-09-19 05:31 | disposition home or self-care (01) ==
PROVIDERS: Emergency Provider Emergency Medicine; PCP Emergency Medicine
DX: R42 Dizziness and giddiness (principal); E86.0 Dehydration; I10 Essential (primary) hypertension; N28.9 Disorder of kidney and ureter, unspecified; K52.9 Noninfective gastroenteritis and colitis, unspecified; I87.2 Venous insufficiency (chronic) (peripheral); J44.9 Chronic obstructive pulmonary disease, unspecified; E03.9 Hypothyroidism, unspecified; E55.9 Vitamin D deficiency, unspecified; K21.9 Gastro-esophageal reflux disease without esophagitis; M06.9 Rheumatoid arthritis, unspecified; Z66 Do not resuscitate; Z86.718 Personal history of other venous thrombosis and embolism; Z87.442 Personal history of urinary calculi; Z87.891 Personal history of nicotine dependence; Z98.42 Cataract extraction status, left eye; Z98.41 Cataract extraction status, right eye; Z96.1 Presence of intraocular lens; Z90.49 Acquired absence of other specified parts of digestive tract
CPT/HCPCS: 36415; 71045; 80053; 81001; 84484; 85025; 93005; 96360; 99284; A9270; J7030

== ENCOUNTER 2024-03-01 15:44 | Inpatient (IN) | payer MEDICARE, MEDICAID, SELFPAY ==
[2024-03-01] VITALS (11 sets, daily range): BP systolic 130–150; BP diastolic 49–76; PULSE 51–67; RESP 12–24; TEMP 36.4; O2SAT 62–99; BMI 25.6
--- NOTE | ~2024-03-01 | US_ITS ---
US venous doppler LE RT DATE: 03/02/2024 09:19 INDICATION: Right lower extremity swelling TECHNIQUE: Real-time and color flow imaging and Doppler analysis of the veins of the right lower extr emity COMPARISON: None FINDINGS: The right greater saphenous vein is patent. There is spontaneous and phasic flow and normal augmentation and color flow signal and normal compression of the deep veins of the right lower extre mity. IMPRESSION: No evidence of deep venous thrombosis of right lower extremity Reviewed, dictated and finalized at [facility]. Reviewed, dictated and finalized at location [facility].
--- NOTE | ~2024-03-01 | US_ITS ---
EXAMINATION: US carotid duplex BI DATE: 03/02/2024 09:19 INDICATION: Syncope TECHNIQUE: Grayscale, color Doppler, and pulsed Doppler images of the cervical carotid arteries were obtained. The degree of vessel stenosis is placed in one of the following categories: normal, <50%, 5 0-69%, >=70% but less than near-occlusion, near-occlusion, or total occlusion. Note that percent sten osis relative to normal distal artery lumen diameter is indirectly measured from velocity measurement s as described by Michael, et al. Radiology 2003; 229:340-346. COMPARISON: None. FINDINGS: RIGHT: The right common carotid artery (CCA) peak systolic velocity (PSV) is 86.0 cm/s. The right internal c arotid artery (ICA) PSV is 63.8 cm/s. The right ICA end-diastolic velocity (EDV) is 17.1 cm/s. The ri t ICA/CCA PSV ratio is 0.7. Grayscale and color Doppler images yield an estimate of less than 50% d iameter reduction from plaque in the ICA. The external carotid artery (ECA) PSV is 69.3 cm/s. There i s antegrade flow in the right vertebral artery. LEFT: The left CCA PSV is 76.7 cm/s. The left ICA PSV is 77.7 cm/s. The left ICA EDV is 20.6 cm/s. The left ICA/CCA PSV ratio is 1.0. Grayscale and color Doppler images yield an estimate of less than 50% diam eter reduction from plaque in the ICA. The ECA PSV is 93.9 cm/s. There is antegrade flow in the left vertebral artery. IMPRESSION: 1. Less than 50% stenosis in the right internal carotid artery. 2. Less than 50% stenosis in the left internal carotid artery. Reviewed, dictated and finalized at [facility]. Reviewed, dictated and finalized at location [facility].
--- NOTE | ~2024-03-01 | XR_ITS ---
EXAMINATION: XR chest 2V DATE: 03/01/2024 17:58 INDICATION: Weakness and dizziness TECHNIQUE: AP and lateral views of the chest were obtained. COMPARISON: Chest radiograph dated 09/18/2023 FINDINGS: The lungs are clear with no focal airspace opacities, pulmonary edema, pleural effusion or pneumothor ax. Heart size is normal. Tortuous thoracic aorta. Chronic malunion of a right humeral neck fracture which is healed with one shaft width anteromedial displacement and proximal migration. IMPRESSION: 1. No acute cardiopulmonary disease. Reviewed, dictated and finalized at location [facility].
--- NOTE | 2024-03-01 17:13 | ECG_ITS ---
SEE SCANNED COPY FOR CONFIRMED REPORT MTDD
[2024-03-01 17:25] LABS: Basophils Absolute Auto 0.1 K/mm3 (0.0-0.1); Basophils Percent Auto 0.4 % (0.2-1.2); Eosinophils Percent Auto 0.1 % (0-4.4); Hematocrit 41.5 % (37.0-47.0); Hemoglobin 13.8 g/dL (12.0-15.0); Immature Granulocyte Absolute 0.04 K/mm3 (0.00-0.031); Immature Granulocyte Percent A 0.3 % (0-0.5); Lymphocytes Absolute Auto 0.97 K/mm3 (0.9-3.2); Lymphocytes Percent Auto 8.5 % (18.3-44.2); Mean Corpuscular HGB Conc 33.3 g/dl (32-36); Mean Corpuscular Hemoglobin 29.7 pg (26-34); Mean Corpuscular Volume 89.2 fl (80-100); Mean Platelet Volume 12.4 fl (7.4-10.4); Monocytes Absolute Auto 0.3 K/mm3 (0.1-0.6); Monocytes Percent Auto 2.4 % (2.6-8.5); Neutrophils Absolute Auto 10.1 K/mm3 (1.3-6.7); Neutrophils Percent Auto 88.3 % (45.5-73.1); Platelet Count Result 226 k/mm3 (150-375); Red Blood Count 4.65 M/mm3 (4.2-5.4); Red Cell Distribution Width 15.6 % (11.5-14.5); White Blood Count 11.4 K/mm3 (4.5-10.0)
--- NOTE | 2024-03-01 17:52 | ED.DIZZY ---
HPI - Dizziness General Chief Complaint: Dizziness Stated Complaint: DIZZINESS,N/V FALL OFF OF TOILET Time Seen by Provider: 03/01/24 17:13 Source: patient Mode of arrival: EMS Limitations: no limitations History of Present Illness HPI Narrative: This is an 83-year-old female that presents to the emergency department after dizziness ongoing today. Reports she has been feeling lightheaded with associated nausea. She went to get up off the toilet and was pulling up her depends. She lost her balance and fell. She does not report any focal injuries after the fall. She does not believe she hit her head. She did not lose consciousness. Denies any other symptoms currently. Denies fever, cough, chest pain, shortness of breath, palpitations, abdominal pain, or dysuria. Related Data Home Medications Medication Instructions Recorded Confirmed levothyroxine 150 mcg tablet 150 mcg PO DAILY 08/31/23 08/31/23 meclizine 25 mg tablet 25 mg PO Q8H PRN Dizziness 08/31/23 08/31/23 melatonin 10 mg tablet 10 mg PO HS PRN Insomnia 08/31/23 08/31/23 Allergies Allergy/AdvReac Type Severity Reaction Status Date / Time Penicillins Allergy Severe Hives Verified 08/31/23 15:13 Review of Systems Review of Systems: CONSTITUTIONAL: Denies fever EYES: Denies visual changes CARDIOVASCULAR: Denies chest pain, palpitations, or edema. RESPIRATORY: Denies cough or dyspnea. GASTROINTESTINAL: Denies abdominal pain, nausea, vomiting GENITOURINARY: Denies dysuria MUSCULOSKELETAL: Denies back pain, joint pain, or myalgia. NEUROLOGIC: Denies headache, numbness, or weakness. All systems reviewed & are unremarkable except as noted in HPI and below PMFSH Past Medical History Medical History (Updated 03/01/24 @ 21:05 by Lavern Borrego PA-C) Anxiety and depression Chronic diarrhea Chronic venous stasis dermatitis COPD mixed type Depression DVT (deep venous thrombosis) Gastroesophageal reflux disease Hyperglycemia Hypertension Hypothyroidism (acquired) Kidney stones Right kidney stone December 2018 PVD (peripheral vascular disease) red legs s/p bermudez Rheumatoid arthritis Small bowel obstruction Umbilical hernia Vitamin D deficiency Surgical History Surgical History History of section X1 History of cholecystectomy History of evacuation of hematoma Of lateral thigh 2014 Status post cataract extraction of both eyes with insertion of intraocular lens 2003 Family History Family History Sibling Patient's sister is in good health Mother Diabetes mellitus, Onset Age: 41 Father Heart attack Cardiovascular disease Social History Social History Social History: Primary care physician: Dr. Herny Hinojosa Code status: DNR/DNI Medical POA: Fatemeh Pittman (daughter). Alternate surrogate decision maker: Rubens Stone, cell assembly pinner. Smoking packs per day: 2 Smoking cigarettes per day: 40.0 Years smoked: 50 Smoking pack-years: 100.00 Smoking status: Former smoker Tobacco type: cigarettes Second hand tobacco smoke exposure: No Smoking end date: 08/20/17 Alcohol intake: never Substance use: never Substance use type: does not use Lack of Transportation: YES Lack of Food: Never True Current Housing: I Have Housing Concerned About Future Housing: No Difficulty Paying Gas/Electric Bills: No Difficulty Paying for Meds: No Currently Unemployed: No Education: High School Diploma/GED Difficulty w/ Childcare or Family Care: No Living arrangements: with friend(s) Additional living arrangements comments: lives with cell assembly pinner/friend rubens Occupation/Education: retired 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 Spiritual care concerns: No Exam Narrative: GENERAL: Elderly, we
[2024-03-01 18:23] LABS: Appearance Urine Cloudy (Clear); Bacteria Urine 4+ /hpf; Bilirubin Urine Negative (Negative); Blood Urine Negative (Negative); Color Urine Yellow (Yellow); Glucose Urine UA Negative (Negative); Ketones Urine Negative (Negative); Leukocyte Esterase Ur 2+ LEU/UL (Negative); Need Manual Microscopic Reviewed; Nitrate Urine Positive (Negative); Protein Urine 1+ mg/dL (Negative); RBC Urine 0-2 /hpf (0-2); Specific Grav Ur 1.019 (1.001-1.035); Squamous Epithelial Cell Urine Occasional /hpf (Few); Urobilinogen Urine 0.2 mg/dL (<2.0); WBC Urine 51-100 /hpf (0-3); pH Urine 5.5 (5.0-9.0)
[2024-03-01 18:25] LABS: Add Urine Microscopic? YES
[2024-03-01 18:42] LABS: Alanine Aminotransferase 14 U/L (6-35); Albumin Level 4.1 g/dL (3.5-5.1); Alkaline Phosphatase 72 U/L (38-126); Anion Gap 8 mmol/L (4-12); Aspartate Amino Transferase 26 U/L (14-36); Bilirubin,Total 0.9 mg/dL (0.2-1.3); Blood Urea Nitrogen 41 mg/dL (7-17); Carbon Dioxide 23 mmol/L (22-30); Chloride 108 mmol/L (98-107); Estimated Glomerular Filt Rate 31; Glucose 124 mg/dL (65-110); Lipase 108 U/L (23-300); Potassium 5.1 mmol/L (3.4-5.0); Sodium 139 mmol/L (137-145)
[2024-03-01] MEDS: SODIUM CHLORIDE 0.9% IV 500 ML 250 ML IV CONT (18:52)
[2024-03-01] MEDS: LOSARTAN POTASSIUM 25 MG TABLET PO (18:53)
[2024-03-01] MEDS: ONDANSETRON INJ 4 MG/2 ML VIAL IV PUSH (18:53)
[2024-03-01 20:32] LABS: Thyroid Stimulating Hormone Reflex 0.127 uIU/mL (0.465-4.68)
[2024-03-01 20:58] LABS: Free T4 Free Thyroxine Reflex 2.73 ng/dL (0.78-2.19)
--- NOTE | 2024-03-01 20:58 | PM.IMHP ---
H&P: HPI History of Present Illness Date/Time: 03/01/24 20:58 Chief Complaint: near-syncope Narrative: 83 years old lady with history of hypothyroidism, hypertension, GERD, chronic diarrhea, presented ED with chief complaint of lightheadedness. Patient states has been having chronic diarrhea about a year, patient denies history of inflammatory bowel disease no chronic disease. And today, patient has a worsening diarrhea and vomited. patient denies abdomen pain, fever, chills, black emesis, melena, red blood per rectum. Patient went to bathroom, patient felt lightheadedness, and patient sit on toilet feeling like passing out. Patient denies lose consciousness, confusion, incontinence, headache, focal weakness, abnormal sensation. patient also denies dysuria. Patient came to ED for evaluation and treatment. upon arrival in ED, patient was afebrile, blood pressure stable, no O2 desaturation on room air, CT of the head shows no acute intracranial issues, chest x-ray shows no acute cardiopulmonary issues. lab shows leukocytosis 11,400, hyperkalemia 5.1, elevated BUN creatinine 41/1.6 above baseline. patient has cloudy urine, urinalysis shows pyuria. in the ED, patient received ceftriaxone 1 g and fluid resuscitation, Zofran. we admit patient for further evaluation and treatment Review of Systems Review of Systems: ROS negative except above PMFSH Past Medical History Medical History (Updated 03/01/24 @ 21:05 by Lavern Borrego PA-C) Anxiety and depression Chronic diarrhea Chronic venous stasis dermatitis COPD mixed type Depression DVT (deep venous thrombosis) Gastroesophageal reflux disease Hyperglycemia Hypertension Hypothyroidism (acquired) Kidney stones Right kidney stone December 2018 PVD (peripheral vascular disease) red legs s/p bermudez Rheumatoid arthritis Small bowel obstruction Umbilical hernia Vitamin D deficiency Surgical History Surgical History History of section X1 History of cholecystectomy History of evacuation of hematoma Of lateral thigh 2013 Status post cataract extraction of both eyes with insertion of intraocular lens 2003 Family History Family History Sibling Patient's sister is in good health Mother Diabetes mellitus, Onset Age: 41 Father Heart attack Cardiovascular disease Social History Social History Social History: Primary care physician: Dr. Henry Hinojosa Code status: DNR/DNI Medical POA: Fatemeh Pittman (daughter). Alternate surrogate decision maker: Rubens Stone, credit verifier. Smoking packs per day: 2 Smoking cigarettes per day: 40.0 Years smoked: 50 Smoking pack-years: 100.00 Smoking status: Former smoker Tobacco type: cigarettes Second hand tobacco smoke exposure: No Smoking end date: 08/20/17 Alcohol intake: never Substance use: never Substance use type: does not use Lack of Transportation: YES Lack of Food: Never True Current Housing: I Have Housing Concerned About Future Housing: No Difficulty Paying Gas/Electric Bills: No Difficulty Paying for Meds: No Currently Unemployed: No Education: High School Diploma/GED Difficulty w/ Childcare or Family Care: No Living arrangements: with friend(s) Additional living arrangements comments: lives with credit verifier/friend rubens Occupation/Education: retired Additional occupation/education comments: Retired [employer]. Spiritual care concerns: No Meds Home Medications and Allergies Home Medications Medication Instructions Recorded Confirmed Type losartan 50 mg tablet 50 mg PO DAILY 90 days #90 tabs 12/23/22 08/31/23 Rx loperamide 2 mg capsule 4 mg PO DAILY 30 days #60 caps 01/26/23 08/31/23 Rx pantoprazole 40 mg tablet,delayed 40 mg PO BID 30 days #180
[2024-03-01] MEDS: SODIUM CHLORIDE 0.9% IV 1,000 ML 125 ML IV CONT (22:31)
[2024-03-02] VITALS (7 sets, daily range): BP systolic 119–131; BP diastolic 51–56; PULSE 46–60; RESP 14–18; TEMP 35.8–36.6; O2SAT 98–99
--- NOTE | 2024-03-02 | ECHO_ITS ---
Patient Info Name: Arielle Pittman Age: 83 years : 1940 Gender: Female Ht: 61 in Wt: 130 lbs BSA: 1.60 m2 HR: 52 bpm BP: 119 / 57 mmHg Heart Rhythm: Sinus Rhythm Technical Quality: Good Exam Date: 03/02/2024 11:24 AM Exam Location: Echo Lab Patient Status: Inpatient Admit Date: 03/01/2024 Staff Ordering Physician: Maurilio Ramos MD Med Surg Rn: Franky Srivastava RDCS Attending Provider: Maurilio Ramos MD Exam Type: CA echo doppler color flow Study Info Indications - syncope Complete two-dimensional, color flow and Doppler transthoracic echocardiogram is performed. Summary 1. Complete two-dimensional, color flow and Doppler transthoracic echocardiogram is performed. 2. Left ventricular chamber dimension is normal. 3. Left ventricular systolic function is normal, estimated at 60-65%. 4. The left ventricular diastolic function is grade I diastolic dysfunction. 5. E/e' 9 is minimally elevated. 6. Right atrial chamber dimension is moderately enlarged. 7. There is mild aortic valve sclerosis. 8. The mitral valve has moderately calcified annulus. 9. There is mild to moderate tricuspid valve regurgitation. 10. No pulmonary hypertension, estimated pulmonary arterial systolic pressure is 32 mmHg. Left Ventricle E/e' 9 is minimally elevated. Left ventricular chamber dimension is normal. Left ventricular systolic function is normal, estimated at 60-65%. The left ventricular diastolic function is grade I diastolic dysfunction. Right Ventricle Right ventricular chamber dimension is normal. Right ventricular systolic function is normal. Left Atria Left atrial chamber dimension is normal. Right Atria Right atrial chamber dimension is moderately enlarged. Aortic Valve The aortic valve is trileaflet. There is mild aortic valve sclerosis. There is no aortic valve stenosis. There is no aortic valve regurgitation. Pulmonic Valve There is no pulmonic regurgitation. Mitral Valve The mitral valve has moderately calcified annulus. There is no mitral valve stenosis. There is no mitral valve regurgitation. Tricuspid Valve There is mild to moderate tricuspid valve regurgitation. No pulmonary hypertension, estimated pulmonary arterial systolic pressure is 32 mmHg. Pericardium/Pleural There is no pericardial effusion. Inferior Vena Cava Normal inferior vena cava with >50% collapse upon inspiration consistent with normal right atrial pressure, 5 mmHg. Aorta The aortic root size at the sinus of Valsalva is normal. Left Ventricular Outflow Tract Name Value Normal LVOT 2D LVOT Diameter 1.7 cm LVOT Doppler LVOT Peak Gradient 4 mmHg LVOT Mean Gradient 2 mmHg LVOT VTI 25 cm LVOT VTI/AV VTI Ratio 0.7 LVOT Stroke Volume 57 ml LVOT CO 2.9 l/min LVOT CI 1.8 l/min/m2 Pulmonic Valve Name Value Normal RV
[2024-03-02 05:23] LABS: Basophils Absolute Auto 0.1 K/mm3 (0.0-0.1); Basophils Percent Auto 0.8 % (0.2-1.2); Eosinophils Absolute Auto 0.1 K/mm3 (0-0.3); Eosinophils Percent Auto 1.5 % (0-4.4); Hematocrit 34.6 % (37.0-47.0); Hemoglobin 11.1 g/dL (12.0-15.0); Immature Granulocyte Absolute 0.01 K/mm3 (0.00-0.031); Immature Granulocyte Percent A 0.1 % (0-0.5); Lymphocytes Absolute Auto 2.63 K/mm3 (0.9-3.2); Lymphocytes Percent Auto 35.4 % (18.3-44.2); Mean Corpuscular HGB Conc 32.1 g/dl (32-36); Mean Corpuscular Hemoglobin 29.3 pg (26-34); Mean Corpuscular Volume 91.3 fl (80-100); Mean Platelet Volume 12.4 fl (7.4-10.4); Monocytes Absolute Auto 0.6 K/mm3 (0.1-0.6); Monocytes Percent Auto 7.7 % (2.6-8.5); Neutrophils Absolute Auto 4.1 K/mm3 (1.3-6.7); Neutrophils Percent Auto 54.5 % (45.5-73.1); Platelet Count Result 192 k/mm3 (150-375); Red Blood Count 3.79 M/mm3 (4.2-5.4); Red Cell Distribution Width 15.4 % (11.5-14.5); White Blood Count 7.4 K/mm3 (4.5-10.0)
[2024-03-02 05:40] LABS: Alanine Aminotransferase 11 U/L (6-35); Albumin Level 3.2 g/dL (3.5-5.1); Alkaline Phosphatase 60 U/L (38-126); Anion Gap 2 mmol/L (4-12); Aspartate Amino Transferase 20 U/L (14-36); Bilirubin,Total 0.6 mg/dL (0.2-1.3); Blood Urea Nitrogen 37 mg/dL (7-17); Calcium 8.8 mg/dL (8.4-10.2); Carbon Dioxide 24 mmol/L (22-30); Chloride 111 mmol/L (98-107); Estimated CRCL calculation 19 ml/min; Estimated Glomerular Filt Rate 33; Glucose 85 mg/dL (65-110); Potassium 4.1 mmol/L (3.4-5.0); Sodium 137 mmol/L (137-145)
[2024-03-02] MEDS: SODIUM CHLORIDE 0.9% IV 1,000 ML 125 ML IV CONT ×2 (06:06→17:06)
--- NOTE | 2024-03-02 07:31 | PM.IMPN ---
Progress Note: A&P Assessment and Plan (1) JC (acute kidney injury): Code(s): N17.9 - Acute kidney failure, unspecified Status: Acute (2) Acute UTI: Code(s): N39.0 - Urinary tract infection, site not specified Status: Acute (3) Syncope: Qualifiers: Syncope type: unspecified Qualified Code(s): R55 - Syncope and collapse Code(s): R55 - Syncope and collapse Status: Acute (4) Hypothyroidism (acquired): Code(s): E03.9 - Hypothyroidism, unspecified Status: Chronic Plan syncope Possible vasovagal syncope, or due to orthostatic hypotension neuro check Four precaution Telemetry monitoring Follow Cardiac Doppler, echocardiogram, EKG acquired hypothyroidism patient on Synthroid 150 mcg daily p.o., TSH 0.127, free T4 2.73, hold Synthroid today will start lower dose Synthroid at discharge hypertension Hold hypertension medications, blood pressure soft Chronic diarrhea patient has been having diarrhea more than urine Patient denies history of inflammatory bowel disease or Crohn disease patient has nausea vomiting and worsening diarrhea today follow-up C diff negative , stool culture, stool white blood cell smear penidng patient declined CT abdomen pelvis denies diarrhea today UTI receive ceftriaxone in the ED, continue ceftriaxone 1 g IV daily Follow-up urine culture JC possible due to dehydration and UTI avoid nephrotoxic medication Elevated BUN creatinine above baseline Continue normal saline IV 03/02 follow-up BMP BUN creatinine trending the continue normal saline IV 125 mL/hour Subjective Date/time seen: 03/02/24 07:31 Interval history: I saw and examined patient today. patient does not have dizziness in bed, denies chest pain, palpitation. Per nurse report, patient declined abdomen CT scan. blood pressure soft Exam Narrative: GENERAL: Pleasant, in no acute distress. Well-nourished. - EYES: EOMI. Anicteric. - HENT: dry mucous membranes. - LUNGS: Clear to auscultation bilaterally, no wheezing, rhonchi, or rales. - CARDIOVASCULAR: Regular rate and rhythm. No murmur. No JVD. - ABDOMEN: Soft, non-tender and non-distended. No palpable masses. hyperactive BS - EXTREMITIES: No edema. Peripheral pulses 2+. Non-tender. - NEUROLOGIC: No focal neurological deficits. CN II-XII grossly intact. - PSYCHIATRIC: Awake, Alert and oriented x 3. Appropriate mood and affect. - SKIN: No rashes or lesions. Warm. - LYMPH: No cervical lymphadenopathy. Objective Data Vital Signs Vital Signs: Vital Signs - 24 hr 03/01/24 15:52 03/01/24 16:40 03/01/24 16:46 Temperature 97.6 F Pulse Rate 67 60 62 Respiratory Rate 16 21 H 21 H Blood Pressure 130/62 150/73 H 138/67 Pulse Oximetry 99 98 97 Oxygen Delivery Room Air 03/01/24 17:01 03/01/24 17:46 03/01/24 18:56 Temperature Pulse Rate 61 57 L 59 L Respiratory Rate 23 H 24 H 14 Blood Pressure 139/74 144/76 H 134/71 Pulse Oximetry 97 Oxygen Delivery 03/01/24 19:01 03/01/24 20:15 03/01/24 22:00 Temperature 97.6 F Pulse Rate 51 L 63 55 L Respiratory Rate 12 14 20 Blood Pressure 150/62 H 132/68 135/51 L Pulse Oximetry 97 99 99 Oxygen Delivery 03/01/24 21:09 03/01/24 21:09 03/01/24 21:09 Temperature 97.6 F 97.6 F 97.6 F Pulse Rate 55 L 62 64 Respiratory Rate 20 20 20 Blood Pressure 133/49 L 140/66 132/59 L Pulse Oximetry 99 62 L 99 Oxygen Delivery 03/01/24 22:08 03/01/24 22:09 03/02/24 00:02 Temperature Pulse Rate 55 L 51 L Respiratory Rate Blood Pressure Pulse Oximetry Oxygen Delivery Room Air 03/02/24 04:04 03/02/24 05:24 Temperature 97.9 F Pulse Rate 46 L 52 L Respiratory Rate 18 Blood Pressure 119/51 L Pulse Oximetry 99 Oxygen Delivery Intake/Output Intake/Output: Intake & Output 02/28/24 02/29/24 03/01/24 03/02/24 23:59 23:59 23:59 23:59 Intake Total 550 1250 [place]
--- NOTE | 2024-03-02 16:05 | PC.NURSE ---
Provider called to notify home meds not addressed during rounds.
[2024-03-02] MEDS: PANTOPRAZOLE 40 MG TABLET PO (17:08)
[2024-03-02] MEDS: MELATONIN 5 MG TABLET 10 MG PO (21:47)
[2024-03-03] MEDS: SODIUM CHLORIDE 0.9% IV 1,000 ML 125 ML IV CONT (01:46)
[2024-03-03 05:31] VITALS: BP 131/55; PULSE 55; RESP 16; TEMP 36.2; O2SAT 100
[2024-03-03] MEDS: PANTOPRAZOLE 40 MG TABLET PO ×2 (08:05→16:20)
--- NOTE | 2024-03-03 08:59 | PM.IMPN ---
Progress Note: A&P Assessment and Plan (1) JC (acute kidney injury): Code(s): N17.9 - Acute kidney failure, unspecified Status: Acute (2) Acute UTI: Code(s): N39.0 - Urinary tract infection, site not specified Status: Acute (3) Syncope: Qualifiers: Syncope type: unspecified Qualified Code(s): R55 - Syncope and collapse Code(s): R55 - Syncope and collapse Status: Acute (4) Hypothyroidism (acquired): Code(s): E03.9 - Hypothyroidism, unspecified Status: Chronic Plan syncope Possible vasovagal syncope, or due to orthostatic hypotension neuro check Four precaution Telemetry monitoring Follow Cardiac Doppler, echocardiogram, EKG 03/03: echo ? 1. Complete two-dimensional, color flow and Doppler transthoracic echocardiogram is performed. ? 2. Left ventricular chamber dimension is normal. ? 3. Left ventricular systolic function is normal, estimated at 60-65%. ? 4. The left ventricular diastolic function is grade I diastolic dysfunction. ? 5. E/e' 9 is minimally elevated. ? 6. Right atrial chamber dimension is moderately enlarged. ? 7. There is mild aortic valve sclerosis. ? 8. The mitral valve has moderately calcified annulus. ? 9. There is mild to moderate tricuspid valve regurgitation. ? 10. No pulmonary hypertension, estimated pulmonary arterial systolic pressure is 32 mmHg. carotid Doppler 1. Less than 50% stenosis in the right internal carotid artery. 2. Less than 50% stenosis in the left internal carotid artery. telemetry does not show significant arrhythmia acquired hypothyroidism patient on Synthroid 150 mcg daily p.o., TSH 0.127, free T4 2.73, hold Synthroid today will start lower dose Synthroid at discharge hypertension Hold hypertension medications, blood pressure soft 03/03 blood pressure above soft, start losartan 25 mg daily p.o. Chronic diarrhea patient has been having diarrhea more than urine Patient denies history of inflammatory bowel disease or Crohn disease patient has nausea vomiting and worsening diarrhea today follow-up C diff negative , stool culture, stool white blood cell smear penidng patient declined CT abdomen pelvis denies diarrhea today UTI receive ceftriaxone in the ED, continue ceftriaxone 1 g IV daily Follow-up urine culture: pending JC possible due to dehydration and UTI avoid nephrotoxic medication Elevated BUN creatinine above baseline 03/02 follow-up BMP BUN creatinine trending the received normal saline IV 125 mL/hour since admission Discontinue normal saline Subjective Date/time seen: 03/03/24 08:59 Interval history: I saw and examined patient today. patient does not have dizziness in bed, denies chest pain, palpitation. Per nurse report, patient declined abdomen CT scan. blood pressure bumps up. urine culture pending Exam Narrative: GENERAL: Pleasant, in no acute distress. Well-nourished. - EYES: EOMI. Anicteric. - HENT: dry mucous membranes. - LUNGS: Clear to auscultation bilaterally, no wheezing, rhonchi, or rales. - CARDIOVASCULAR: Regular rate and rhythm. No murmur. No JVD. - ABDOMEN: Soft, non-tender and non-distended. No palpable masses. hyperactive BS - EXTREMITIES: No edema. Peripheral pulses 2+. Non-tender. - NEUROLOGIC: No focal neurological deficits. CN II-XII grossly intact. - PSYCHIATRIC: Awake, Alert and oriented x 3. Appropriate mood and affect. - SKIN: No rashes or lesions. Warm. - LYMPH: No cervical lymphadenopathy. Objective Data Vital Signs Vital Signs: Vital Signs - 24 hr 03/02/24 14:00 03/02/24 20:37 03/02/24 20:05 Temperature 97.6 F 96.4 F L Pulse Rate 60 60 60 Respiratory Rate 14 16 16 Blood Pressure 125/56 L 131/53 L Pulse Oximetry 99 98 98 Oxygen Delivery Room Air 03/03/24 05:31 03/03/24 08:10 Temperature 97.2 F L Pulse Rate 55 L Respiratory Rate 16 Blood Pressure 131/55 L Pulse Oximetr
[2024-03-03 09:24] LABS: Basophils Absolute Auto 0.1 K/mm3 (0.0-0.1); Basophils Percent Auto 0.8 % (0.2-1.2); Eosinophils Absolute Auto 0.2 K/mm3 (0-0.3); Eosinophils Percent Auto 3.1 % (0-4.4); Hematocrit 38.9 % (37.0-47.0); Immature Granulocyte Absolute 0.02 K/mm3 (0.00-0.031); Immature Granulocyte Percent A 0.3 % (0-0.5); Lymphocytes Absolute Auto 2.74 K/mm3 (0.9-3.2); Lymphocytes Percent Auto 38.6 % (18.3-44.2); Mean Corpuscular HGB Conc 30.8 g/dl (32-36); Mean Corpuscular Hemoglobin 29.4 pg (26-34); Mean Corpuscular Volume 95.3 fl (80-100); Mean Platelet Volume 12.3 fl (7.4-10.4); Monocytes Absolute Auto 0.3 K/mm3 (0.1-0.6); Monocytes Percent Auto 4.2 % (2.6-8.5); Neutrophils Absolute Auto 3.8 K/mm3 (1.3-6.7); Platelet Count Result 195 k/mm3 (150-375); Red Blood Count 4.08 M/mm3 (4.2-5.4); Red Cell Distribution Width 15.8 % (11.5-14.5); White Blood Count 7.1 K/mm3 (4.5-10.0)
[2024-03-03 09:37] LABS: Anion Gap 7 mmol/L (4-12); Blood Urea Nitrogen 33 mg/dL (7-17); Calcium 9.2 mg/dL (8.4-10.2); Carbon Dioxide 21 mmol/L (22-30); Chloride 115 mmol/L (98-107); Estimated CRCL calculation 19 ml/min; Estimated Glomerular Filt Rate 33; Glucose 105 mg/dL (65-110); Potassium 4.5 mmol/L (3.4-5.0); Sodium 143 mmol/L (137-145)
[2024-03-03 13:52] VITALS: BP 148/58; PULSE 53; RESP 16; TEMP 36.7; O2SAT 100
[2024-03-03] MEDS: LOSARTAN POTASSIUM 25 MG TABLET PO (16:20)
[2024-03-03 21:04] VITALS: BP 163/64; PULSE 60; RESP 18; TEMP 36.8; O2SAT 98
[2024-03-03] MEDS: MELATONIN 5 MG TABLET 10 MG PO (23:15)
[2024-03-04 06:00] VITALS: BP 150/74; PULSE 59; RESP 18; TEMP 36.4; O2SAT 99
[2024-03-04] MEDS: DONEPEZIL HCL 5 MG TABLET PO (09:07)
[2024-03-04] MEDS: PANTOPRAZOLE 40 MG TABLET PO ×2 (09:07→17:22)
[2024-03-04 09:10] LABS: Basophils Absolute Auto 0.1 K/mm3 (0.0-0.1); Basophils Percent Auto 1.1 % (0.2-1.2); Eosinophils Absolute Auto 0.2 K/mm3 (0-0.3); Eosinophils Percent Auto 3.2 % (0-4.4); Hematocrit 38.4 % (37.0-47.0); Hemoglobin 12.4 g/dL (12.0-15.0); Immature Granulocyte Absolute 0.02 K/mm3 (0.00-0.031); Immature Granulocyte Percent A 0.3 % (0-0.5); Lymphocytes Absolute Auto 2.79 K/mm3 (0.9-3.2); Lymphocytes Percent Auto 42.1 % (18.3-44.2); Mean Corpuscular HGB Conc 32.3 g/dl (32-36); Mean Corpuscular Hemoglobin 29.8 pg (26-34); Mean Corpuscular Volume 92.3 fl (80-100); Mean Platelet Volume 12.6 fl (7.4-10.4); Monocytes Absolute Auto 0.4 K/mm3 (0.1-0.6); Monocytes Percent Auto 5.6 % (2.6-8.5); Neutrophils Absolute Auto 3.2 K/mm3 (1.3-6.7); Neutrophils Percent Auto 47.7 % (45.5-73.1); Platelet Count Result 199 k/mm3 (150-375); Red Blood Count 4.16 M/mm3 (4.2-5.4); Red Cell Distribution Width 15.7 % (11.5-14.5); White Blood Count 6.6 K/mm3 (4.5-10.0)
[2024-03-04 09:19] LABS: Anion Gap 9 mmol/L (4-12); Blood Urea Nitrogen 34 mg/dL (7-17); Calcium 9.4 mg/dL (8.4-10.2); Carbon Dioxide 22 mmol/L (22-30); Chloride 111 mmol/L (98-107); Estimated CRCL calculation 22 ml/min; Estimated Glomerular Filt Rate 39; Glucose 90 mg/dL (65-110); Sodium 142 mmol/L (137-145)
[2024-03-04 09:25] VITALS: BP 154/82; PULSE 52
--- NOTE | 2024-03-04 12:40 | PM.IMPN ---
Progress Note: A&P Assessment and Plan (1) JC (acute kidney injury): Code(s): N17.9 - Acute kidney failure, unspecified Status: Acute (2) Acute UTI: Code(s): N39.0 - Urinary tract infection, site not specified Status: Acute (3) Syncope: Qualifiers: Syncope type: unspecified Qualified Code(s): R55 - Syncope and collapse Code(s): R55 - Syncope and collapse Status: Acute (4) Hypothyroidism (acquired): Code(s): E03.9 - Hypothyroidism, unspecified Status: Chronic Plan Syncope Possible vasovagal syncope, or due to orthostatic hypotension Echo shows EF 60% tele shows no athymias Check orthostatics today NS 250 cc bolus today BMP in Am PT/OT DC in AM acquired hypothyroidism patient on Synthroid 150 mcg daily p.o., TSH 0.127, free T4 2.73, hold Synthroid today will start lower dose Synthroid at discharge hypertension start losartan 25 mg daily p.o. Chronic diarrhea patient has been having diarrhea more than urine Patient denies history of inflammatory bowel disease or Crohn disease patient has nausea vomiting and worsening diarrhea today follow-up C diff negative , stool culture, stool white blood cell smear penidng patient declined CT abdomen pelvis denies diarrhea today UTI receive ceftriaxone in the ED, continue ceftriaxone 1 g IV daily Follow-up urine culture: shows EColi transition to oral ABX JC possible due to dehydration and UTI avoid nephrotoxic medication Elevated BUN creatinine above baseline NS 250 cc bolus today Subjective Date/time seen: 03/04/24 12:40 Interval history: 83 years old lady with history of hypothyroidism, hypertension, GERD, chronic diarrhea, presented ED with chief complaint of lightheadedness.? Patient states has been having chronic diarrhea about a year, patient denies history of inflammatory bowel disease no chronic disease.? And today, patient has a worsening diarrhea and vomited. Pt treated for UTI infection Pt uses rollator at home, pt to have PT/ OT in hospital and dc tomorrow Review of Systems Review of Systems: Diarrhea is better pt feels better Exam Narrative: GENERAL: Pleasant, in no acute distress. Well-nourished. - EYES: EOMI. Anicteric. - HENT: dry mucous membranes. - LUNGS: Clear to auscultation bilaterally, no wheezing, rhonchi, or rales. - CARDIOVASCULAR: Regular rate and rhythm. No murmur. No JVD. - ABDOMEN: Soft, non-tender and non-distended. No palpable masses. hyperactive BS - EXTREMITIES: No edema. Peripheral pulses 2+. Non-tender. - NEUROLOGIC: No focal neurological deficits. CN II-XII grossly intact. - PSYCHIATRIC: Awake, Alert and oriented x 3. Appropriate mood and affect. - SKIN: No rashes or lesions. Warm. - LYMPH: No cervical lymphadenopathy. Objective Data Vital Signs Vital Signs: Vital Signs - 24 hr 03/03/24 13:52 03/03/24 21:04 03/03/24 20:50 Temperature 36.7 C 36.8 C Pulse Rate 53 L 60 Respiratory Rate 16 18 Blood Pressure 148/58 H 163/64 H Pulse Oximetry 100 98 Oxygen Delivery Room Air 03/04/24 06:00 03/04/24 09:25 Temperature 36.4 C Pulse Rate 59 L 52 L Respiratory Rate 18 Blood Pressure 150/74 H 154/82 H Pulse Oximetry 99 Oxygen Delivery Intake/Output Intake/Output: Intake & Output 03/01/24 03/02/24 03/03/24 03/04/24 23:59 23:59 23:59 23:59 Intake Total 550 3560 2360 340 Output Total 1100 Balance 550 3560 1260 340 Meds/Results Medications: Active Medications Generic Name Dose Route Start Last Admin Trade Name Freq PRN Reason Stop Dose Admin Donepezil HCl 5 mg 03/04/24 09:00 03/04/24 09:07 Donepezil Hcl 5 Mg Tablet PO 5 mg DAILY SALMA Administration Ceftriaxone Sodium 1 gm in 50 mls @ 100 mls/hr 03/02/24 21:00 03/03/24 21:20 Rocephin 1 Gm/Ns 50 Ml IVPB Infused Q24H SALMA Infusion Losartan Potassium 25 mg 03/03/24 17:00 03/03/24 16:20 L
[2024-03-04] MEDS: SODIUM CHLORIDE 0.9% IV 250 ML 999 ML IV CONT (13:42)
[2024-03-04 16:37] VITALS: BP 169/62; PULSE 47; RESP 16; TEMP 36.9; O2SAT 98
[2024-03-04] MEDS: LOSARTAN POTASSIUM 25 MG TABLET PO (17:22)
[2024-03-04] MEDS: CIPROFLOXACIN 500 MG TAB PO (21:01)
[2024-03-04 22:00] VITALS: BP 167/58; PULSE 71; RESP 16; TEMP 36.5; O2SAT 99
[2024-03-05] MEDS: MELATONIN 5 MG TABLET 10 MG PO (00:31)
[2024-03-05 05:00] VITALS: BP 181/65; PULSE 93; RESP 16; TEMP 36.6; O2SAT 100
[2024-03-05 05:07] LABS: Basophils Absolute Auto 0.1 K/mm3 (0.0-0.1); Eosinophils Absolute Auto 0.2 K/mm3 (0-0.3); Eosinophils Percent Auto 3.5 % (0-4.4); Hematocrit 35.7 % (37.0-47.0); Hemoglobin 11.6 g/dL (12.0-15.0); Immature Granulocyte Absolute 0.02 K/mm3 (0.00-0.031); Immature Granulocyte Percent A 0.3 % (0-0.5); Lymphocytes Absolute Auto 2.49 K/mm3 (0.9-3.2); Mean Corpuscular HGB Conc 32.5 g/dl (32-36); Mean Corpuscular Hemoglobin 29.6 pg (26-34); Mean Corpuscular Volume 91.1 fl (80-100); Mean Platelet Volume 12.7 fl (7.4-10.4); Monocytes Absolute Auto 0.4 K/mm3 (0.1-0.6); Monocytes Percent Auto 6.3 % (2.6-8.5); Neutrophils Percent Auto 48.9 % (45.5-73.1); Platelet Count Result 204 k/mm3 (150-375); Red Blood Count 3.92 M/mm3 (4.2-5.4); Red Cell Distribution Width 15.2 % (11.5-14.5); White Blood Count 6.2 K/mm3 (4.5-10.0)
[2024-03-05 05:15] LABS: Anion Gap 7 mmol/L (4-12); Blood Urea Nitrogen 34 mg/dL (7-17); Calcium 9.1 mg/dL (8.4-10.2); Carbon Dioxide 23 mmol/L (22-30); Chloride 112 mmol/L (98-107); Estimated CRCL calculation 22 ml/min; Estimated Glomerular Filt Rate 39; Glucose 83 mg/dL (65-110); Potassium 4.1 mmol/L (3.4-5.0); Sodium 142 mmol/L (137-145)
[2024-03-05 05:30] VITALS: BP 152/63
[2024-03-05 05:31] VITALS: BP 153/71
[2024-03-05 05:32] VITALS: BP 158/71
[2024-03-05 09:35] VITALS: PULSE 93; RESP 16; O2SAT 100
[2024-03-05] MEDS: DONEPEZIL HCL 5 MG TABLET PO (09:35)
[2024-03-05] MEDS: PANTOPRAZOLE 40 MG TABLET PO (09:35)
--- NOTE | 2024-03-05 12:48 | PM.DS ---
DS: Admitting Diagnosis Discharge Date 03/05/2024 Admitting Diagnosis ?Near-syncope DS: Discharge Diagnosis Discharge Diagnosis (1) JC (acute kidney injury): Code(s): N17.9 - Acute kidney failure, unspecified Status: Acute (2) Acute UTI: Code(s): N39.0 - Urinary tract infection, site not specified Status: Acute (3) Syncope: Qualifiers: Syncope type: unspecified Qualified Code(s): R55 - Syncope and collapse Code(s): R55 - Syncope and collapse Status: Acute (4) Hypothyroidism (acquired): Code(s): E03.9 - Hypothyroidism, unspecified Status: Chronic Plan Syncope Possible vasovagal syncope, or due to orthostatic hypotension Echo shows EF 60% tele shows no athymias Check orthostatics today NS 250 cc bolus received PT/OT DC in AM pt advised oral hydration acquired hypothyroidism patient on Synthroid 150 mcg daily p.o., TSH 0.127, free T4 2.73, hold Synthroid today will start lower dose Synthroid at discharge hypertension start losartan 25 mg daily p.o. Chronic diarrhea patient has been having diarrhea more than urine Patient denies history of inflammatory bowel disease or Crohn disease patient has nausea vomiting and worsening diarrhea today follow-up C diff negative , stool culture, stool white blood cell smear penidng patient declined CT abdomen pelvis imodium given for chronic diarrhea UTI receive ceftriaxone in the ED, continue ceftriaxone 1 g IV daily Follow-up urine culture: shows EColi transition to oral ABX JC possible due to dehydration and UTI avoid nephrotoxic medication Elevated BUN creatinine slightly above baseline 1.3 DS: Summary Hospital Course Hospital Course: 83 years old lady with history of hypothyroidism, hypertension, GERD, chronic diarrhea, presented ED with chief complaint of lightheadedness.? Patient states has been having chronic diarrhea about a year, patient denies history of inflammatory bowel disease no chronic disease.? And today, patient has a worsening diarrhea and vomited. Pt treated for UTI infection Pt uses rollator at home, pt to have PT/ OT in hospital and dc today Time Spent with Patient Time attestation: Total time spent providing and/or coordinating discharge services:45 minutes on day of dc Exam Narrative: GENERAL: Pleasant, in no acute distress. Well-nourished. - EYES: EOMI. Anicteric. - HENT: dry mucous membranes. - LUNGS: Clear to auscultation bilaterally, no wheezing, rhonchi, or rales. - CARDIOVASCULAR: Regular rate and rhythm. No murmur. No JVD. - ABDOMEN: Soft, non-tender and non-distended. No palpable masses. hyperactive BS - EXTREMITIES: No edema. Peripheral pulses 2+. Non-tender. - NEUROLOGIC: No focal neurological deficits. CN II-XII grossly intact. - PSYCHIATRIC: Awake, Alert and oriented x 3. Appropriate mood and affect. - SKIN: No rashes or lesions. Warm. - LYMPH: No cervical lymphadenopathy. DS: Data Data Completed and Pending Labs on day of discharge: Labs from last 24 hours 03/05/24 04:39 WBC 6.2 RBC 3.92 L Hgb 11.6 L Hct 35.7 L MCV 91.1 MCH 29.6 MCHC 32.5 RDW 15.2 H Plt Count 204 MPV 12.7 H Immature Gran % (Auto) 0.3 Neut % (Auto) 48.9 Lymph % (Auto) 40.0 [place] % (Auto) 6.3 Eos % (Auto) 3.5 Baso % (Auto) 1.0 Lymph # (Auto) 2.49 [place] # (Auto) 0.4 Eos # (Auto) 0.2 Baso # (Auto) 0.1 Abs Immat Gran (auto) 0.02 Absolute Neuts (auto) 3.0 Absolute Nucleated RBC 0.000 Nucleated RBC % 0.0 Sodium 142 Potassium 4.1 Chloride 112 H Carbon Dioxide 23 Anion Gap 7 BUN 34 H Creatinine 1.30 H Estim Creat Clear Calc 22 Estimated GFR 39 L Glucose 83 Calcium 9.1 Discharge Plan Discharge Attending physician on discharge: Luiza Yeh Discharging Clinician: katerine Anticipated Discharge Date/Time: 03/05/24 12:46 Patient Disposition: Home Health Service Activity: a
[2024-03-05] MEDS: LOPERAMIDE HCL 2 MG CAPSULE PO (13:45)
[2024-03-05 14:00] VITALS: BP 153/74; PULSE 56; RESP 20; TEMP 36.9; O2SAT 97
--- NOTE | 2024-03-05 14:48 | PCCCNOTE ---
On 03/05/24, the student, Shruti Ramon, provided care and completed [facility] documentation on this patient. I have reviewed the student's documentation and agree with the findings.
== END 2024-03-05 15:35 | disposition home health service (06) | DRG 690 ==
LOC: ANHED 20:54 → ANH2MED 22:00
PROVIDERS: Student in an Organized Health Care Education/Training Program; Admitting Provider Hospitalist; Emergency Provider Physician Assistant; PCP Emergency Medicine; Visit Provider Family Medicine
DX: N39.0 Urinary tract infection, site not specified (principal); N17.9 Acute kidney failure, unspecified; I87.2 Venous insufficiency (chronic) (peripheral); I10 Essential (primary) hypertension; J44.9 Chronic obstructive pulmonary disease, unspecified; E03.9 Hypothyroidism, unspecified; E55.9 Vitamin D deficiency, unspecified; K21.9 Gastro-esophageal reflux disease without esophagitis; K52.9 Noninfective gastroenteritis and colitis, unspecified; M06.9 Rheumatoid arthritis, unspecified; R55 Syncope and collapse; B96.20 Unspecified Escherichia coli [E. coli] as the cause of diseases classified elsewhere; F32.A Depression, unspecified; F41.9 Anxiety disorder, unspecified; Z87.891 Personal history of nicotine dependence; Z86.718 Personal history of other venous thrombosis and embolism; Z87.442 Personal history of urinary calculi
CPT/HCPCS: 36415; 71046; 80048; 80053; 81001; 83690; 84439; 84443; 85025; 87077; 87086; 87088; 87186; 93005; 93306; 93880; 93971; 96361; 96365; 96375; 97161; 97165; 99285; A9270; G0378; J0696; J2405; J7030; J7040; J7050

== ENCOUNTER 2024-07-21 20:28 | Emergency (ER) | payer MEDICARE, MEDICAID, SELFPAY ==
--- NOTE | ~2024-07-21 | XR_ITS ---
XR chest 1V portable Ordering provider: Robles Purcell MD History: 83 years Female with . syncope . Comparison: January 01, 2024 FINDINGS: MEDIASTINUM: The cardiac silhouette is not enlarged. Congestive sterling. LUNGS: No infiltrates, effusions or pneumothorax. Bilateral interstitial changes with prominent [place]win ngs. OTHER: No free air under the diaphragm. Degenerative the spine. IMPRESSION: Prominent markings with interstitial changes. Pneumonitis is not excluded. Clinical correlation and f ollow-up advised. Reviewed, dictated and finalized at location A. IMPRESSION: Prominent markings with interstitial changes. Pneumonitis is not excluded. Clin ical correlation and follow-up advised.
[2024-07-21 20:32] VITALS: BP 158/82; PULSE 52; RESP 15; TEMP 36.8; O2SAT 99
--- NOTE | 2024-07-21 20:36 | ECG_ITS ---
Test Date: 2024-07-21 20:37:56 Measurements Intervals [place] Rate: 51 P: 87 MS: 171 QRS: -47 QRSD: 138 T: 34 QT: 491 QTc: 453 Interpretive Statements SINUS BRADYCARDIA LEFT AXIS DEVIATION RIGHT BUNDLE BRANCH BLOCK BASELINE ARTIFACT- I, II, III, AVR, AVL, AVF, V1 ABNORMAL ECG No previous ECG available for comparison Electronically Signed On 07-22-2024 06:20:25 CDT by Alphonso Nicole D.O.
[2024-07-21 20:57] LABS: Basophils Absolute Auto 0.1 K/mm3 (0.0-0.1); Basophils Percent Auto 0.5 % (0.2-1.2); Eosinophils Absolute Auto 0.1 K/mm3 (0-0.3); Eosinophils Percent Auto 0.7 % (0-4.4); Hematocrit 40.1 % (37.0-47.0); Hemoglobin 13.3 g/dL (12.0-15.0); Immature Granulocyte Absolute 0.06 K/mm3 (0.00-0.031); Immature Granulocyte Percent A 0.4 % (0-0.5); Lymphocytes Absolute Auto 2.16 K/mm3 (0.9-3.2); Lymphocytes Percent Auto 14.7 % (18.3-44.2); Mean Corpuscular HGB Conc 33.2 g/dl (32-36); Mean Corpuscular Hemoglobin 30.4 pg (26-34); Mean Corpuscular Volume 91.8 fl (80-100); Mean Platelet Volume 12.3 fl (7.4-10.4); Monocytes Absolute Auto 0.7 K/mm3 (0.1-0.6); Monocytes Percent Auto 4.5 % (2.6-8.5); Neutrophils Absolute Auto 11.7 K/mm3 (1.3-6.7); Neutrophils Percent Auto 79.2 % (45.5-73.1); Platelet Count Result 258 k/mm3 (150-375); Red Blood Count 4.37 M/mm3 (4.2-5.4); Red Cell Distribution Width 15.3 % (11.5-14.5); White Blood Count 14.7 K/mm3 (4.5-10.0)
[2024-07-21 21:07] LABS: Alanine Aminotransferase 16 U/L (6-35); Albumin Level 4.1 g/dL (3.5-5.1); Alkaline Phosphatase 87 U/L (38-126); Anion Gap 12 mmol/L (4-12); Aspartate Amino Transferase 28 U/L (14-36); Bilirubin,Total 0.7 mg/dL (0.2-1.3); Blood Urea Nitrogen 25 mg/dL (7-17); Calcium 9.7 mg/dL (8.4-10.2); Carbon Dioxide 25 mmol/L (22-30); Chloride 102 mmol/L (98-107); Estimated CRCL calculation 24 ml/min; Estimated Glomerular Filt Rate 39; Glucose 100 mg/dL (65-110); Sodium 139 mmol/L (137-145)
[2024-07-21 21:45] VITALS: BP 133/65; PULSE 53; RESP 17; O2SAT 96
[2024-07-21 23:15] VITALS: BP 158/61; PULSE 52; RESP 17; O2SAT 95
[2024-07-21 23:15] LABS: Lactic Acid Reflex 1.3 mmol/L (0.7-2.0)
[2024-07-21 23:27] LABS: Lipase 91 U/L (23-300); Magnesium 1.6 mg/dL (1.6-2.3)
[2024-07-21 23:28] LABS: Troponin I 0.015 ng/mL (0.000-0.034)
--- NOTE | 2024-07-22 00:42 | ED.GENADULT ---
HPI - General Adult General Chief complaint: Syncope Stated complaint: SYNCOPE-HIT HEAD, NO THINNERS Time Seen by Provider: 07/21/24 20:48 History of Present Illness HPI narrative: Patient is a 83-year-old female who presents emergency department with chief complaint of syncope. The patient was in her kitchen felt lightheaded and fell to the ground the patient reports she hit back of her head and reports that she has a headache as well. Patient reports that she has no other pain does report that she has had a fair amount of diarrhea although she has chronic diarrhea. Related Data Home Medications Medication Instructions Recorded Confirmed levothyroxine 150 mcg tablet 150 mcg PO DAILY 08/31/23 07/03/24 meclizine 25 mg tablet 25 mg PO Q8H PRN Dizziness 08/31/23 07/03/24 melatonin 10 mg tablet 10 mg PO HS PRN Insomnia 08/31/23 07/03/24 donepezil 5 mg tablet 5 mg PO DAILY 03/01/24 07/03/24 losartan 25 mg tablet 25 mg PO .5PM 03/01/24 07/03/24 Allergies Allergy/AdvReac Type Severity Reaction Status Date / Time Penicillins Allergy Severe Hives Verified 07/21/24 20:39 Review of Systems Review of Systems: A 10 system review of systems was completed on the patient and is negative except for what is stated in the HPI. Nursing and ancillary documentation was reviewed. [facility] Past Medical History Medical History Anxiety and depression Chronic diarrhea Chronic venous stasis dermatitis COPD mixed type Depression DVT (deep venous thrombosis) Gastroesophageal reflux disease Hyperglycemia Hypertension Hypothyroidism (acquired) Kidney stones Right kidney stone December 2018 PVD (peripheral vascular disease) red legs s/p bermudez Rheumatoid arthritis Right kidney mass Small bowel obstruction Umbilical hernia Vitamin D deficiency Surgical History Surgical History History of section X1 History of cholecystectomy History of evacuation of hematoma Of lateral thigh 2013 Status post cataract extraction of both eyes with insertion of intraocular lens 2003 Family History Family History Sibling Patient's sister is in good health Mother Diabetes mellitus, Onset Age: 41 Father Heart attack Cardiovascular disease Social History Social History Social History: Primary care physician: Dr. Henry Hinojosa Code status: DNR/DNI Medical POA: Fatemeh Pittman (daughter). Alternate surrogate decision maker: Rubens Stone, assistant passenger locomotive engineer. Smoking packs per day: 2 Smoking cigarettes per day: 40.0 Years smoked: 50 Smoking pack-years: 100.00 Smoking status: Former smoker Second hand tobacco smoke exposure: No Alcohol intake: never Substance use: never Substance use type: does not use Do You Feel Safe in your Home?: Yes Lack of Transportation: No Lack of Food: Never True Current Housing: I Have Housing Concerned About Future Housing: No Difficulty Paying Gas/Electric Bills: No Difficulty Paying for Meds: No Currently Unemployed: No Education: Grade School Difficulty w/ Childcare or Family Care: No Living arrangements: with friend(s) Additional living arrangements comments: lives with assistant passenger locomotive engineer/friend rubens Occupation/Education: retired Additional occupation/education comments: 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 Spiritual care concerns: No Exam Narrative: GENERAL: Well-appearing, well-nourished, and in no acute distress. HEAD: Normocephalic, atraumatic. EYES: PERRLA and EOMI. ENT: Nares clear, no rhinorrhea or epistaxis. Mucous membranes moist. NECK: Supple. CHEST: Clear to auscultation. No respiratory distress. HEART: Regular rate and rhythm. No murmur heard. Normal peripheral pulses. ABDOMEN: Soft,
[2024-07-22 00:43] LABS: Add Urine Microscopic? YES; Appearance Urine Clear (Clear); Bacteria Urine 2+ /hpf; Bilirubin Urine Negative (Negative); Blood Urine Negative (Negative); Color Urine Yellow (Yellow); Glucose Urine UA Negative (Negative); Ketones Urine Trace mg/dL (Negative); Leukocyte Esterase Ur 1+ LEU/UL (Negative); Nitrate Urine Positive (Negative); Protein Urine 1+ mg/dL (Negative); RBC Urine 0-2 /hpf (0-2); Specific Grav Ur 1.018 (1.001-1.035); Squamous Epithelial Cell Urine None Seen /hpf (Few)
[2024-07-22 00:45] VITALS: BP 146/71; PULSE 50; RESP 17; O2SAT 95
[2024-07-22 02:17] VITALS: BP 133/65; PULSE 50; RESP 15; O2SAT 96
[2024-07-22 05:22] VITALS: BP 132/50; PULSE 54; RESP 14; O2SAT 97
[2024-07-22] MEDS: LOPERAMIDE HCL 2 MG CAPSULE 4 MG PO (06:29)
== END 2024-07-22 07:30 | disposition home or self-care (01) ==
PROVIDERS: Emergency Provider Emergency Medicine; PCP Emergency Medicine
DX: N39.0 Urinary tract infection, site not specified (principal); R55 Syncope and collapse; K52.9 Noninfective gastroenteritis and colitis, unspecified; F41.9 Anxiety disorder, unspecified; F32.A Depression, unspecified; J44.9 Chronic obstructive pulmonary disease, unspecified; Z86.718 Personal history of other venous thrombosis and embolism; K21.9 Gastro-esophageal reflux disease without esophagitis; I10 Essential (primary) hypertension; E03.9 Hypothyroidism, unspecified; Z87.442 Personal history of urinary calculi
CPT/HCPCS: 36415; 71045; 80053; 81001; 83605; 83690; 83735; 84484; 85025; 87077; 87086; 87088; 87186; 93005; 99284; A9270

== ENCOUNTER 2024-08-29 17:38 | Observation (INO) | payer MEDICARE, MEDICAID, SELFPAY ==
--- NOTE | ~2024-08-29 | XR_ITS ---
CHEST RADIOGRAPH CLINICAL HISTORY: syncopal episode . COMPARISON: 07/21/2024 TECHNIQUE: Single portable view of the chest. FINDINGS The cardiomediastinal silhouette is unremarkable. The lungs are clear. Visualized osseous structures and soft tissues are unremarkable. IMPRESSION: No focal infiltrate or effusion. Reviewed, dictated and finalized at location A.
--- NOTE | ~2024-08-29 | CT_ITS ---
EXAMINATION: CT brain wo con DATE: 08/29/2024 18:51 INDICATION: Syncope. Head injury. TECHNIQUE: Computed tomography (CT) of the head was performed without intravenous contrast. Sagittal and coronal reconstructions were performed. The mA was adjusted according to patient size. Iterative reconstruction technique was employed. The dose-length product was 681.00 mGy-cm. COMPARISON: head CT dated 08/31/2023 FINDINGS: No fracture. No acute intracranial hemorrhage, acute infarction or abnormal extra axial fluid collect ion. Stable appearance of moderate scattered white matter hypoattenuation consistent with chronic sma ll vessel ischemic disease. In the bilateral anterior frontal lobes and frontoparietal region the deg ree of decreased density is insufficient to suggest discrete lacunar infarcts within the pattern of d istribution suggesting prior watershed infarcts. Ventricles are normal and symmetric. No mass/mass ef fect. Changes of left intraocular lens replacement. The orbits, paranasal sinuses and mastoid air lynda ls are normal. Intracranial calcified cerebral atherosclerosis is noted. IMPRESSION: 1. No fracture or acute intracranial process. 2. Stable appearance of decreased white matter attenuation consistent with chronic small vessel ische alaina disease with regions of more significantly decreased attenuation in the bilateral frontal and fro ntoparietal regions with distribution suggesting possible superimposed chronic small white matter carlos ershed infarcts due to a hypotensive episode. Reviewed, dictated and finalized at location A. IMPRESSION: 1. No fracture or acute intracranial process. 2. Stable appearance of decreased white matter attenuation consistent with chrome cleaner reji small vessel ischemic disease with regions of more significantly decreased attenuation in the bilateral frontal and frontoparietal regions with distributi on suggesting possible superimposed chronic small white matter watershed infarc ts due to a hypotensive episode.
--- NOTE | ~2024-08-29 | CT_ITS ---
EXAMINATION: CT cervical spine wo con DATE: 08/29/2024 18:51 INDICATION: Syncope with head injury TECHNIQUE: Computed tomography (CT) of the cervical spine was performed without intravenous contrast. Automated exposure control and iterative reconstruction technique were employed. The dose-length pro duct was 165.55 mGy-cm. COMPARISON: 04/07/2020 FINDINGS: Straightening of the normal cervical lordosis and 13 degrees cervical dextrocurvature. 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 Right paracentral disc osteophyte complex at C4-C5 and mild disc bulge at C3-C4 resulting in mild central canal stenosis at these levels. Moderate left-sided an d severe right-sided uncovertebral osteoarthritis at C4-C5. Multilevel Vertebral body heights are nor mal. No fracture. Moderate disc height loss at C4-C5. Mild disc height loss at C5-C6, C6-7 and C7-T1. Multilevel bilateral moderate to severe facet osteoarthritis most prominent on the right at C6-C7 an d C7-T1 and on the left at C2-C3. Mild to moderate neural from stenosis on the right at C4-C5 with mi nimal to mild neural from stenosis at several of the remaining bilateral cervical neural foramina. At herosclerotic calcifications at the bilateral carotid bulbs. Prominent coarse calcification in the ri ght thyroid lobe. Cervical soft tissues are otherwise unremarkable. Mild emphysema at the apices of t he lungs. IMPRESSION: 1. 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 No acute osseous abnormality. Reviewed, dictated and finalized at location A. IMPRESSION: 1. 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 No acute osse ous abnormality.
[2024-08-29 17:41] VITALS: BP 144/59; PULSE 54; RESP 18; TEMP 36.4; O2SAT 100
--- NOTE | 2024-08-29 17:45 | ECG_ITS ---
Test Date: 2024-08-29 17:50:00 Measurements Intervals [place] Rate: 51 P: 54 FL: 164 QRS: -28 QRSD: 141 T: 38 QT: 462 QTc: 428 Interpretive Statements SINUS BRADYCARDIA BORDERLINE LEFT AXIS DEVIATION [QRS AXIS < -20] RIGHT BUNDLE BRANCH BLOCK [120+ ms QRS DURATION, UPRIGHT V1, 40+ ms S IN I/aVL/V4/V5/V6] Compared to ECG 07/21/2024 20:37:56 No significant changes Electronically Signed On 08-30-2024 15:25:30 CDT by Gale Mario M.D.
[2024-08-29 18:03] LABS: Basophils Absolute Auto 0.1 K/mm3 (0.0-0.1); Basophils Percent Auto 1.1 % (0.2-1.2); Eosinophils Percent Auto 0.5 % (0-4.4); Hematocrit 37.4 % (37.0-47.0); Hemoglobin 12.5 g/dL (12.0-15.0); Immature Granulocyte Absolute 0.01 K/mm3 (0.00-0.031); Immature Granulocyte Percent A 0.1 % (0-0.5); Lymphocytes Absolute Auto 1.15 K/mm3 (0.9-3.2); Lymphocytes Percent Auto 15.2 % (18.3-44.2); Mean Corpuscular HGB Conc 33.4 g/dl (32-36); Mean Corpuscular Hemoglobin 31.1 pg (26-34); Mean Platelet Volume 12.3 fl (7.4-10.4); Monocytes Absolute Auto 0.3 K/mm3 (0.1-0.6); Monocytes Percent Auto 4.1 % (2.6-8.5); Platelet Count Result 268 k/mm3 (150-375); Red Blood Count 4.02 M/mm3 (4.2-5.4); Red Cell Distribution Width 15.6 % (11.5-14.5); White Blood Count 7.6 K/mm3 (4.5-10.0)
--- NOTE | 2024-08-29 18:16 | ED.SYNCOPE ---
HPI - Syncope General Chief Complaint: Syncope Stated Complaint: syncopy Time Seen by Provider: 08/29/24 18:04 History of Present Illness HPI narrative: 84-year-old female history of COPD, GERD, hypertension, hypothyroidism, CHF ( Echo on 03/02/2024 reveals grade 1 diastolic dysfunction, EF of 60-65%) presents to the emergency department via EMS from home for syncopal episode. Patient states she was sitting on her couch when she passed out. Her friend witnessed the event. She does nits prodromal symptoms including lightheadedness or dizziness, blurred vision, chest pain, palpitations or shortness of breath. States she hit her head on the wall and woke up within a couple of seconds. She states she returned to baseline immediately after the syncopal event. She has no complaints at this time. Denies headache, vision changes, focal numbness or weakness, chest pain or shortness of breath, palpitations, cough or congestion, fever, abdominal pain, dysuria or hematuria. She does states she had an episode of diarrhea today. States she has syncopized in the past and has been told it is secondary to her GI losses from chronic diarrhea. Related Data Home Medications Medication Instructions Recorded Confirmed levothyroxine 150 mcg tablet 150 mcg PO DAILY 08/31/23 07/03/24 meclizine 25 mg tablet 25 mg PO Q8H PRN Dizziness 08/31/23 07/03/24 melatonin 10 mg tablet 10 mg PO HS PRN Insomnia 08/31/23 07/03/24 donepezil 5 mg tablet 5 mg PO DAILY 03/01/24 07/03/24 losartan 25 mg tablet 25 mg PO .5PM 03/01/24 07/03/24 Allergies Allergy/AdvReac Type Severity Reaction Status Date / Time Penicillins Allergy Severe Hives Verified 07/21/24 20:39 Review of Systems Review of Systems: All systems reviewed & are unremarkable except as noted in HPI and below PMFSH Past Medical History Medical History Anxiety and depression Chronic diarrhea Chronic venous stasis dermatitis COPD mixed type Depression DVT (deep venous thrombosis) Gastroesophageal reflux disease Hyperglycemia Hypertension Hypothyroidism (acquired) Kidney stones Right kidney stone December 2018 PVD (peripheral vascular disease) red legs s/p bermudez Rheumatoid arthritis Right kidney mass Small bowel obstruction Umbilical hernia Vitamin D deficiency Surgical History Surgical History History of section X1 History of cholecystectomy History of evacuation of hematoma Of lateral thigh 2014 Status post cataract extraction of both eyes with insertion of intraocular lens 2003 Family History Family History Sibling Patient's sister is in good health Mother Diabetes mellitus, Onset Age: 41 Father Heart attack Cardiovascular disease Social History Social History Social History: Primary care physician: Dr. Henry Hinojosa Code status: DNR/DNI Medical POA: Fatemeh Pittman (daughter). Alternate surrogate decision maker: Rubens Stone, digital sales representative. Smoking packs per day: 2 Smoking cigarettes per day: 40.0 Years smoked: 50 Smoking pack-years: 100.00 Smoking status: Former smoker Second hand tobacco smoke exposure: No Alcohol intake: never Substance use: never Substance use type: does not use Do You Feel Safe in your Home?: Yes Lack of Transportation: No Lack of Food: Never True Current Housing: I Have Housing Concerned About Future Housing: No Difficulty Paying Gas/Electric Bills: No Difficulty Paying for Meds: No Currently Unemployed: No Education: Grade School Difficulty w/ Childcare or Family Care: No Living arrangements: with friend(s) Additional living arrangements comments: lives with digital sales representative/friend rubens Occupation/Education: retired 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 Spiritual care concerns: No Exam Narrative: GENERAL: Well-appearing, well-nourished, and in no acute distress. HEAD: Normocephalic, atraumatic. EYES: PERRLA and EOMI. ENT: Nares clear, no rhinorrhea or epistaxis. Mucous membranes moist. NECK: Supple. No midline cervical spinous tenderness, step-offs or deformities CHEST: Clear to auscultation. No respiratory distress. HEART: Regular rate and rhythm. No murmur heard. Normal peripheral pulses. ABDOMEN: Soft, nontender, nondistended, normal active bowel sounds. EXTREMITIES: Normal range of motion. No edema. SKIN: Warm, dry, no rash. NEURO: No focal deficits. Alert and oriented x3. strength 5/5 throughout. Sensation intact throughout. No gross cranial nerve deficits. Course Vital Signs Vital signs: Vital Signs Temperature 97.6 F 08/29/24 17:41 Pulse Rate 54 L 08/29/24 17:41 Respiratory Rate 18 08/29/24 17:41 Blood Pressure 144/59 H 08/29/24 17:41 Pulse Oximetry 100 08/29/24 17:41 Oxygen Delivery Room Air 08/29/24 17:41 Temperature 97.9 F 08/29/24 20:03 Pulse Rate 46 L 08/29/24 20:03 Respiratory Rate 15 08/29/24 20:03 Blood Pressure 168/54 H 08/29/24 20:03 Pulse Oximetry 100 08/29/24 20:03 Oxygen Delivery Room Air 08/29/24 17:41 MDM - Syncope MDM Narrative Medical decision making narrative: 84-year-old female presents the ED via EMS from home for syncopal episode. Patient was sitting on a couch when she syncopized for a few seconds. She denies prodromal symptoms. Upon my evaluation she has no complaints. Her triage vitals reveal bradycardia 54, otherwise unremarkable. She is neurovascularly intact without evidence of injury. Will obtain syncope workup including EKG and troponin, CT brain and cervical spine. CBC is without leukocytosis or anemia. Chemistries are remarkable for a creatinine of 1.6 and BUN of 36 which is near patient's baseline. TSH is within normal limits of 1.26. Mag is normal 1.8. EKG reveals sinus bradycardia with a rate of 51 ppm, LAD, RBBB, minimal depression in lead V2, no ST elevation. Troponin is within normal limits. BNP is acutely elevated to 2160. Chest x-ray is unremarkable. CT cervical spine shows 13? of cervical dextrocurvature with moderate spondylosis, no acute osseous abnormality. CT brain reveals no acute fracture or intracranial process. There is stable appearance of decreased white matter attenuation consistent with chronic small-vessel ischemic disease with regions of more significantly decreased attenuation in the bilateral frontal and frontoparietal regions with distribution suggesting possible superimposed chronic small white matter watershed infarcts due to a hypotensive episode. Patient updated on workup. Her story is suspicious given no prodrome, age and risk factors including CHF. Do feel she would benefit from admission and hydration. The patient is amenable to this. She was also started on Levoquin for UTI (allergic to PCNs). Blood and urine cultures are pending. Discussed the case with hospitalist Dr. Art who agrees to admission. Lab Data 08/29/24 17:54 08/29/24 17:54 Labs: Lab Results 08/29/24 08/29/24 Range/Units 17:54 19:36 WBC 7.6 (4.5-10.0) K/mm3 RBC 4.02 L (4.2-5.4) M/mm3 Hgb 12.5 (12.0-15.0) g/dL Hct 37.4 (37.0-47.0) % MCV 93.0 (80-100) fl MCH 31.1 (26-34) pg MCHC 33.4 (32-36) g/dl RDW 15.6 H (11.5-14.5) % Plt Count 268 (150-375) k/mm3 MPV 12.3 H (7.4-10.4) fl Immature Gran % (Auto) 0.1 (0-0.5) % Neut % (Auto) 79.0 H (45.5-73.1) % Lymph % (Auto) 15.2 L (18.3-44.2) % [place] % (Auto) 4.1 (2.6-8.5) % Eos % (Auto) 0.5 (0-4.4) % Baso % (Auto) 1.1 (0.2-1.2) % Lymph # (Auto) 1.15 (0.9-3.2) K/mm3 [place] # (Auto) 0.3 (0.1-0.6) K/mm3 Eos # (Auto) 0.0 (0-0.3) K/mm3 Baso # (Auto) 0.1 (0.0-0.1) K/mm3 Abs Immat Gran (auto) 0.01 (0.00-0.031) K/mm3 Absolute Neuts (auto) 6.0 (1.3-6.7) K/mm3 Absolute Nucleated RBC 0.000 (0.0-0.012) K/mm3 Nucleated RBC % 0.0 (0.0-0.2) % PT 13.5 (11.1-14.7) Seconds INR 1.0 APTT 27.1 (22.3-36.8) Seconds Sodium 142 (137-145) mmol/L Potassium 4.5 (3.4-5.0) mmol/L Chloride 108 H (98-107) mmol/L Carbon Dioxide 25 (22-30) mmol/L Anion Gap 9 (4-12) mmol/L BUN 36 H D (7-17) mg/dL Creatinine 1.60 H (0.7-1.0) mg/dL Estim Creat Clear Calc 20 ml/min Estimated GFR 31 L (59 - ) Glucose 153 H (65-110) mg/dL Calcium 9.5 (8.4-10.2) mg/dL Magnesium 1.8 (1.6-2.3) mg/dL Total Bilirubin 0.6 (0.2-1.3) mg/dL AST 26 (14-36) U/L ALT 14 (6-35) U/L Alkaline Phosphatase 73 (38-126) U/L Troponin I 0.012 (0.000-0.034) ng/mL NT-Pro-B Natriuret Pep 2160 H (19.9-100) pg/mL Total Protein 8.0 (6.3-8.2) g/dL Albumin 4.1 (3.5-5.1) g/dL TSH (Reflex) 1.260 (0.465-4.68) uIU/mL Urine Color Yellow (Yellow) Urine Appearance Cloudy H (Clear) Urine pH 5.5 (5.0-9.0) Ur Specific [place] 1.018 (1.001-1.035) Urine Protein 2+ H (Negative) mg/dL Urine Glucose (UA) Negative (Negative) mg/dL Urine Ketones Trace H (Negative) mg/dL Ur Blood (Man) Non-hemolyzed trace H (Negative) Urine Nitrate Positive H (Negative) Urine Bilirubin Negative (Negative) Urine Urobilinogen 0.2 (<2.0) mg/dL Leukocyte Esterase Rfl 3+ H (Negative) ANNY/UL Urine RBC 3-5 H (0-2) /hpf Urine WBC >100 H (0-3) /hpf Ur Squamous Epith Cells None seen (Few) /hpf Urine Bacteria 4+ H /hpf Urine Casts 3-5 Discharge Plan Discharge Clinical Impression: Syncope, UTI (urinary tract infection) Patient Disposition: Still a Patient Condition: Stable Prescriptions: No Action losartan 50 mg tablet 50 mg PO DAILY 90 Days Qty: 90 1RF meclizine 25 mg tablet 25 mg PO Q8H PRN (Reason: Dizziness) Rx Instructions: TAKE 1 TABLET BY MOUTH THREE TIMES DAILY NEEDED FOR DIZZINESS levothyroxine 150 mcg tablet 150 mcg PO DAILY Rx Instructions: Take 1 tablet by mouth once daily melatonin 10 mg Tablet 10 mg PO HS PRN (Reason: Insomnia) loperamide 2 mg Capsule 2 mg PO .q2hr MDD 16mg/day PRN (Reason: Diarrhea) Qty: 90 1RF donepezil 5 mg tablet 5 mg PO DAILY losartan 25 mg tablet 25 mg PO .5PM cephalexin 500 mg capsule 500 mg PO Q12H 7 Days Qty: 14 0RF pantoprazole 40 mg tablet,delayed release (DR/EC) 40 mg PO BID 30 Days Qty: 180 3RF Follow-up/Referrals: Henry Hinojosa MD [Primary Care Provider] -
[2024-08-29 18:19] LABS: Alanine Aminotransferase 14 U/L (6-35); Albumin Level 4.1 g/dL (3.5-5.1); Alkaline Phosphatase 73 U/L (38-126); Anion Gap 9 mmol/L (4-12); Aspartate Amino Transferase 26 U/L (14-36); Bilirubin,Total 0.6 mg/dL (0.2-1.3); Blood Urea Nitrogen 36 mg/dL (7-17); Calcium 9.5 mg/dL (8.4-10.2); Carbon Dioxide 25 mmol/L (22-30); Chloride 108 mmol/L (98-107); Estimated CRCL calculation 20 ml/min; Estimated Glomerular Filt Rate 31; Glucose 153 mg/dL (65-110); Potassium 4.5 mmol/L (3.4-5.0); Sodium 142 mmol/L (137-145)
[2024-08-29 18:32] LABS: Magnesium 1.8 mg/dL (1.6-2.3)
[2024-08-29 18:35] LABS: Prothrombin Time 13.5 Seconds (11.1-14.7)
[2024-08-29 18:36] LABS: Partial Thromboplastin Time 27.1 Seconds (22.3-36.8)
[2024-08-29 18:46] LABS: Troponin I 0.012 ng/mL (0.000-0.034)
[2024-08-29] MEDS: SODIUM CHLORIDE 0.9% IV 1,000 ML 999 ML IV CONT (18:50)
[2024-08-29 18:53] VITALS: BP 148/62; PULSE 49; PULSE 55; RESP 16; TEMP 36.4; O2SAT 100
[2024-08-29 19:07] LABS: NT Pro B Type Natriuretic Pept 2160 pg/mL (19.9-100)
[2024-08-29 20:03] VITALS: BP 168/54; PULSE 46; RESP 15; TEMP 36.6; O2SAT 100
[2024-08-29 20:13] LABS: Add Urine Microscopic? YES; Appearance Urine Cloudy (Clear); Bacteria Urine 4+ /hpf; Bilirubin Urine Negative (Negative); Blood Urine Non-Hemolyzed Trace (Negative); Color Urine Yellow (Yellow); Glucose Urine UA Negative (Negative); Ketones Urine Trace mg/dL (Negative); Leukocyte Esterase Ur 3+ LEU/UL (Negative); Nitrate Urine Positive (Negative); Protein Urine 2+ mg/dL (Negative); Specific Grav Ur 1.018 (1.001-1.035); Squamous Epithelial Cell Urine None Seen /hpf (Few); Urobilinogen Urine 0.2 mg/dL (<2.0); WBC Urine >100 /hpf (0-3); pH Urine 5.5 (5.0-9.0)
[2024-08-29] MEDS: levoFLOXacin 750 MG/D5W 150 ML 750 MG/150 ML BAG 100 MG IVPB (20:41)
[2024-08-29 20:51] VITALS: BP 159/63; PULSE 50; RESP 15; O2SAT 100
--- NOTE | 2024-08-29 21:48 | ADMGEN ---
This patient, Arielle Pittman, was admitted to [facility] Surg Room 324-02. Patient/family oriented to hospital policies and general routines including ID bracelet, bed and alarms, visiting hours, pain management, procedures, bathroom and other care routines, personal items, smoking policy, room service/diet, and visiting hours. Information on how to activate the Rapid Response Team has been discussed. Patient/Family are encouraged to report perceived risks to care and to ask questions if they do not understand what they are told or what they should do.
[2024-08-29 22:00] VITALS: BP 177/68; PULSE 50; RESP 15; TEMP 36.6; O2SAT 100
[2024-08-29 22:05] VITALS: BMI 24.0
[2024-08-30] VITALS (9 sets, daily range): BP systolic 131–160; BP diastolic 61–69; PULSE 47–70; RESP 16–20; TEMP 36.2–36.4; O2SAT 99–100
--- NOTE | 2024-08-30 02:13 | PM.IMHP ---
H&P: HPI History of Present Illness Date/Time: 08/30/24 02:13 Chief Complaint: Syncope Narrative: 84-year-old female with a PMH hypothyroidism, hypertension, GERD, sinus bradycardia asymptomatic, chronic diarrhea, CKD, orthostatic hypotension with history of syncope, hypertension. She presents to [facility] on 08/29/2024 via EMS as she had syncopal episode at home. She lives with a friend and states she was sitting in her couch when she passed out. Her friend witnessed this. She had no aura or prodrome at all. Upon extensive questioning the patient reports she has been feeling at her baseline. She feels she has been hydrating. She has had no changes in her hydration level. She denies any abdominal pain nausea vomiting, she does have chronic diarrhea. She denies any burning micturition, any change in her urinary frequency. Her friend stated she hit her head on a wall and woke up a few seconds later without any postictal state. [place] ER evaluation demonstrates supine hypertension, orthostatic hypotension, WBC 7.6, afebrile, BUN 36, serum creatinine 1.6 which is around her baseline. BNP 2160, troponin 0.012. EKG demonstrated sinus bradycardia which is her usual. No acute ischemic changes. Urinalysis grossly abnormal with positive nitrates, cloudy appearance, 4+ bacteria, greater than 100 WBC. Chest x-ray without acute process, CT head without acute intracranial process, chronic small vessel ischemic disease with significantly decreased attenuation in bilateral frontal and frontoparietal regions suggesting superimposed watershed infarcts due to hypotension. CT cervical spine without acute osseous abnormalities. In the ER she was administered levofloxacin 750 mg IV x1, 1 L normal saline bolus. Admitted on 08/30/2024 further evaluation and management of syncope and SHOH. Review of Systems Review of Systems: All systems reviewed & are unremarkable except as noted in HPI and below (Subjective) [facility] Past Medical History Medical History Anxiety and depression Chronic diarrhea Chronic venous stasis dermatitis COPD mixed type Depression DVT (deep venous thrombosis) Gastroesophageal reflux disease Hyperglycemia Hypertension Hypothyroidism (acquired) Kidney stones Right kidney stone December 2018 PVD (peripheral vascular disease) red legs s/p bermudez Rheumatoid arthritis Right kidney mass Small bowel obstruction Umbilical hernia Vitamin D deficiency Surgical History Surgical History History of section X1 History of cholecystectomy History of evacuation of hematoma Of lateral thigh 2014 Status post cataract extraction of both eyes with insertion of intraocular lens 2003 Family History Family History Sibling Patient's sister is in good health Mother Diabetes mellitus, Onset Age: 41 Father Heart attack Cardiovascular disease Social History Social History Social History: Primary care physician: Dr. Henry Hinojosa Code status: DNR/DNI Medical POA: Fatemeh Pittman (daughter). Alternate surrogate decision maker: Rubens Stone, fitting room attendant. Smoking packs per day: 2 Smoking cigarettes per day: 40.0 Years smoked: 50 Smoking pack-years: 100.00 Smoking status: Never smoker Second hand tobacco smoke exposure: No Alcohol intake: never Substance use: never Substance use type: does not use Do You Feel Safe in your Home?: Yes Lack of Transportation: No Lack of Food: Never True Current Housing: I Have Housing Concerned About Future Housing: No Difficulty Paying Gas/Electric Bills: No Difficulty Paying for Meds: No Currently Unemployed: No Education: Grade School Difficulty w/ Childcare or Family Care: No Living arrangements: with friend(s) Additional living arrangements comments: lives with fitting room attendant/friend rubens Occupation/Education: retired 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 Spiritual care concerns: No Meds Home Medications and Allergies Home Medications Medication Instructions Recorded Confirmed Type losartan 50 mg tablet 50 mg PO DAILY 90 days #90 tabs 12/23/22 08/29/24 Rx pantoprazole 40 mg tablet,delayed 40 mg PO BID 30 days #180 tabs 04/12/23 08/29/24 Rx release levothyroxine 150 mcg tablet 150 mcg PO DAILY 08/31/23 08/29/24 History meclizine 25 mg tablet 25 mg PO Q8H PRN Dizziness 08/31/23 08/29/24 History melatonin 10 mg tablet 10 mg PO HS PRN Insomnia 08/31/23 08/29/24 History loperamide 2 mg capsule 2 mg PO .q2hr PRN Diarrhea #90 caps 09/02/23 08/29/24 Rx donepezil 5 mg tablet 5 mg PO DAILY 03/01/24 08/29/24 History losartan 25 mg tablet 25 mg PO .5PM 03/01/24 08/29/24 History Allergies Allergy/AdvReac Type Severity Reaction Status Date / Time Penicillins Allergy Severe Hives Verified 07/21/24 20:39 Vital Signs Vital Signs - 24 hr 08/29/24 17:41 08/29/24 18:53 08/29/24 18:53 Temperature 97.6 F 97.6 F Pulse Rate 54 L 49 L 55 L Respiratory Rate 18 16 Blood Pressure 144/59 H 148/62 H Pulse Oximetry 100 100 Oxygen Delivery Room Air 08/29/24 20:03 08/29/24 20:51 08/29/24 22:00 Temperature 97.9 F 97.9 F Pulse Rate 46 L 50 L 50 L Respiratory Rate 15 15 15 Blood Pressure 168/54 H 159/63 H 177/68 H Pulse Oximetry 100 100 100 Oxygen Delivery 08/29/24 22:51 Temperature Pulse Rate Respiratory Rate Blood Pressure Pulse Oximetry Oxygen Delivery Room Air Exam Const: General: comfortable and no acute distress Other: A&O x3 HENMT: Mouth: Yes moist mucous membranes Eyes: Pupils: Equal, round and reactive pupils present Neck: Neck: supple Resp: Effort & Inspection: normal respiratory effort Auscultation: clear to auscultation bilaterally Cardio: Rate: bradycardic Rhythm: regular rhythm Heart sounds: no gallops, no murmurs and no rubs GI: Inspection: non-distended GI Palp: Yes Soft to palpation and No Tenderness to palpation present (GI) : General: Yes bladder normal to palpation Neuro: Speech: normal speech Motor exam (neuro): 5/5 motor strength present throughout Sensory Exam: normal sensation Other: Cranial nerves 2-12 grossly intact. No focal deficits. Extrem: Other: Trace edema bilateral lower extremities distal to the knees. Poor skin turgor. H&P: Results Labs Labs: Short CBC 08/29/24 Range/Units 17:54 WBC 7.6 (4.5-10.0) K/mm3 Hgb 12.5 (12.0-15.0) g/dL Hct 37.4 (37.0-47.0) % Plt Count 268 (150-375) k/mm3 BMP 10/24/24 17:54 Sodium 142 Potassium 4.5 Chloride 108 H Carbon Dioxide 25 BUN 36 H D Creatinine 1.60 H Glucose 153 H Calcium 9.5 Cardiac Enzymes 08/29/24 Range/Units 17:54 Troponin I 0.012 (0.000-0.034) ng/mL Liver Function 08/29/24 Range/Units 17:54 Total Bilirubin 0.6 (0.2-1.3) mg/dL AST 26 (14-36) U/L ALT 14 (6-35) U/L Alkaline Phosphatase 73 (38-126) U/L Albumin 4.1 (3.5-5.1) g/dL Urine 08/29/24 Range/Units 19:36 Urine Color Yellow (Yellow) Urine Appearance Cloudy H (Clear) Urine pH 5.5 (5.0-9.0) Ur Specific [place] 1.018 (1.001-1.035) Urine Protein 2+ H (Negative) mg/dL Urine Glucose (UA) Negative (Negative) mg/dL Assessment and Plan Assessment and plan (1) Syncope: Qualifiers: Syncope type: unspecified Qualified Code(s): R55 - Syncope and collapse Code(s): R55 - Syncope and collapse Status: Acute (2) UTI (urinary tract infection): Qualifiers: Hematuria presence: with hematuria Urinary tract infection type: acute cystitis Qualified Code(s): N30.01 - Acute cystitis with hematuria Code(s): N39.0 - Urinary tract infection, site not specified Status: Acute (3) Supine hypertension: Code(s): I10 - Essential (primary) hypertension Status: Acute Plan 84-year-old female with a PMH hypothyroidism, hypertension, GERD, sinus bradycardia asymptomatic, chronic diarrhea, CKD, history of syncope, possible SHOH (see below). She presents to [facility] on 08/29/2024 via EMS as she had syncopal episode at home. She lives with a friend and states she was sitting in her couch when she passed out. Her friend witnessed this. She had no aura or prodrome at all. Upon extensive questioning the patient reports she has been feeling at her baseline. She feels she has been hydrating. She has had no changes in her hydration level. She denies any abdominal pain nausea vomiting, she does have chronic diarrhea. She denies any burning micturition, any change in her urinary frequency. Her friend stated she hit her head on a wall and woke up a few seconds later without any postictal state. [place] [facility] evaluation demonstrates supine hypertension, orthostatic hypotension, WBC 7.6, afebrile, BUN 36, serum creatinine 1.6 which is around her baseline. BNP 2160, troponin 0.012. EKG demonstrated sinus bradycardia which is her usual. No acute ischemic changes. Urinalysis grossly abnormal with positive nitrates, cloudy appearance, 4+ bacteria, greater than 100 WBC. Chest x-ray without acute process, CT head without acute intracranial process, chronic small vessel ischemic disease with significantly decreased attenuation in bilateral frontal and frontoparietal regions suggesting superimposed watershed infarcts due to hypotension. CT cervical spine without acute osseous abnormalities. In the ER she was administered levofloxacin 750 mg IV x1, 1 L normal saline bolus. Admitted on 08/30/2024 further evaluation and management of syncope. ----- The patient has sinus bradycardia but this is usual for her. She remains in sinus bradycardia and is currently asymptomatic. Her syncope is likely related to SHOH, and possibly dehydration from diarrhea. The patient had an admission in February 2024 with the exact same problem list including hypertension UTI and syncope. At the end of that admission orthostatic vitals were checked and her supine blood pressure is 181/65 and standing blood pressure 158/71. It is unclear if this was truly orthostatic because an additional blood pressure was checked supine which recorded 152/63. In any case, the patient was discharged home on a new prescription of losartan 25 mg p.o. q.day. this could be the culprit for her orthostatic hypotension. Check orthostats. Hold losartan for now. Abdominal binder has been ordered. If orthostatics are clearly positive then she can be educated on behavioral changes including appropriate use of abdominal binder, purchasing a waist high compression stockings which we do not have in supply at this hospital, raising from sleep at a slow pace and then from sitting to standing at a slow pace, using passive venous return techniques such as butt clenching and thigh tightening before she stands up, and while she is standing including crossing the legs and squeezing. As usual SHOH can be difficult to treat in the face of elevated hypertension while supine, advanced therapies may be needed based on her response to the aforementioned therapies and behavioral changes. Monitor diarrhea and treat as appropriate to prevent over dehydration/hypovolemia. She has received 1 L normal saline in the ER although she does have diastolic dysfunction and trace bilateral lower extremity edema so at the moment we will hold off on giving any more fluids. Continue telemetry to assess for any arrhythmias which may be the causative factor for syncope. Trend renal function status post fluid resuscitation. Serum creatinine on admission 1.6. Her baseline is between 1.3 and 1.6. PTOT. She is generally weak. She is currently on a heart healthy diet, consider liberating that to a regular diet so she can have more salt to support her intravascular volume if orthostatic hypotension appears to be her etiology. Currently she is asymptomatic however will treat as a UTI with levofloxacin. She previous had Proteus mirabilis and E coli sensitive to fluoroquinolones. She is allergic to penicillin. Follow urine culture and tailor as needed. Blood cultures have been drawn as well. Holding donepezil as it interacts with levofloxacin to increase to QTC. Home meds have been restarted as appropriate otherwise. ----- SCDs Fall risk PTOT Saline lock IV Heart healthy diet Continue DROP FORGE HAND PPI Patient wishes to be DNR. Patient lives at home with a friend. She denies recreational drug use, alcohol use, tobacco abuse. Hospitalist MIPS Advance Care Plan I have confirmed that the patient's Advanced Care Plan is present, code status is documented, or surrogate decision maker is listed in patient medical record.: Yes Medication Reconciliation I have utilized all available resources to obtain, update and review the patients current medications (includes all prescriptions, OTC, herbals, cannabis, and nutritional supplements).: Yes
[2024-08-30 06:58] LABS: Basophils Absolute Auto 0.1 K/mm3 (0.0-0.1); Basophils Percent Auto 1.1 % (0.2-1.2); Eosinophils Absolute Auto 0.1 K/mm3 (0-0.3); Eosinophils Percent Auto 1.1 % (0-4.4); Hematocrit 34.4 % (37.0-47.0); Hemoglobin 11.2 g/dL (12.0-15.0); Immature Granulocyte Absolute 0.02 K/mm3 (0.00-0.031); Immature Granulocyte Percent A 0.3 % (0-0.5); Lymphocytes Absolute Auto 2.37 K/mm3 (0.9-3.2); Lymphocytes Percent Auto 36.6 % (18.3-44.2); Mean Corpuscular HGB Conc 32.6 g/dl (32-36); Mean Corpuscular Hemoglobin 30.4 pg (26-34); Mean Corpuscular Volume 93.5 fl (80-100); Mean Platelet Volume 12.3 fl (7.4-10.4); Monocytes Absolute Auto 0.5 K/mm3 (0.1-0.6); Monocytes Percent Auto 7.4 % (2.6-8.5); Neutrophils Absolute Auto 3.5 K/mm3 (1.3-6.7); Neutrophils Percent Auto 53.5 % (45.5-73.1); Platelet Count Result 226 k/mm3 (150-375); Red Blood Count 3.68 M/mm3 (4.2-5.4); Red Cell Distribution Width 15.4 % (11.5-14.5); White Blood Count 6.5 K/mm3 (4.5-10.0)
[2024-08-30 07:25] LABS: Anion Gap 7 mmol/L (4-12); Blood Urea Nitrogen 30 mg/dL (7-17); Calcium 8.9 mg/dL (8.4-10.2); Carbon Dioxide 24 mmol/L (22-30); Chloride 109 mmol/L (98-107); Estimated CRCL calculation 21 ml/min; Estimated Glomerular Filt Rate 33; Glucose 69 mg/dL (65-110); Magnesium 1.7 mg/dL (1.6-2.3); Potassium 4.1 mmol/L (3.4-5.0); Sodium 140 mmol/L (137-145)
[2024-08-30] MEDS: PANTOPRAZOLE 40 MG TABLET PO ×2 (09:07→21:20)
--- NOTE | 2024-08-30 10:30 | PM.IMPN ---
Progress Note: A&P Assessment and Plan (1) Syncope: Qualifiers: Syncope type: unspecified Qualified Code(s): R55 - Syncope and collapse Code(s): R55 - Syncope and collapse Status: Acute Assessment and Plan: The patient has sinus bradycardia but this is usual for her. She remains in sinus bradycardia and is currently asymptomatic. Her syncope is likely related to SHOH, and possibly dehydration from diarrhea. The patient had an admission in February 2024 with the exact same problem list including hypertension UTI and syncope. At the end of that admission orthostatic vitals were checked and her supine blood pressure is 181/65 and standing blood pressure 158/71. It is unclear if this was truly orthostatic because an additional blood pressure was checked supine which recorded 152/63. In any case, the patient was discharged home on a new prescription of losartan 25 mg p.o. q.day. this could be the culprit for her orthostatic hypotension. Check orthostatic Hold losartan for now. Abdominal binder has been ordered. If orthostatics are clearly positive then she can be educated on behavioral changes including appropriate use of abdominal binder, purchasing a waist high compression stockings which we do not have in supply at this hospital, raising from sleep at a slow pace and then from sitting to standing at a slow pace (2) UTI (urinary tract infection): Qualifiers: Hematuria presence: with hematuria Urinary tract infection type: acute cystitis Qualified Code(s): N30.01 - Acute cystitis with hematuria Code(s): N39.0 - Urinary tract infection, site not specified Status: Acute Assessment and Plan: She denies any burning micturition, any change in her urinary frequency. Currently she is asymptomatic however will treat as a UTI with levofloxacin. She previous had Proteus mirabilis and E coli sensitive to fluoroquinolones. She is allergic to penicillin. Follow urine culture and tailor as needed. Blood cultures have been drawn as well. (3) Supine hypertension: Code(s): I10 - Essential (primary) hypertension Status: Acute Plan Holding donepezil as it interacts with levofloxacin to increase to QTC. Home meds have been restarted as appropriate otherwise. ----- PT/OT ordered SCDs Fall risk PTOT Saline lock IV Heart healthy diet Continue FISHING VESSEL DECKHAND PPI Patient wishes to be DNR. Patient lives at home with a friend. She denies recreational drug use, alcohol use, tobacco abuse. Time Spent With Patient Time with patient: Greater than 35 minutes Subjective Date/time seen: 08/30/24 10:30 Interval history: Syncope Narrative: 84-year-old female with a PMH hypothyroidism, hypertension, GERD, sinus bradycardia asymptomatic, chronic diarrhea, CKD, orthostatic hypotension with history of syncope, hypertension. She presents to [facility] on 08/29/2024 via EMS as she had syncopal episode at home. She lives with a friend and states she was sitting in her couch when she passed out. Her friend witnessed this. She had no aura or prodrome at all. Upon extensive questioning the patient reports she has been feeling at her baseline. She feels she has been hydrating. She has had no changes in her hydration level. She denies any abdominal pain nausea vomiting, she does have chronic diarrhea. She denies any burning micturition, any change in her urinary frequency. Her friend stated she hit her head on a wall and woke up a few seconds later without any postictal state. [place] ER evaluation demonstrates supine hypertension, orthostatic hypotension, WBC 7.6, afebrile, BUN 36, serum creatinine 1.6 which is around her baseline. BNP 2160, troponin 0.012. EKG demonstrated sinus bradycardia which is her usual. No acute ischemic changes. Urinalysis grossly abnormal with positive nitrates, cloudy appearance, 4+ bacteria, greater than 100 WBC. Chest x-ray without acute process, CT head without acute intracranial process, chronic small vessel ischemic disease with significantly decreased attenuation in bilateral frontal and frontoparietal regions suggesting superimposed watershed infarcts due to hypotension. CT cervical spine without acute osseous abnormalities. In the ER she was administered levofloxacin 750 mg IV x1, 1 L normal saline bolus. Admitted on 08/30/2024 further evaluation and management of syncope and SHOH. 08/30 pt is seen and examined. She is comfortable- reports no pain, increased weakness at home. Review of Systems Review of Systems: All systems reviewed & are unremarkable except as noted in HPI and below (Subjective) Exam Const: General: comfortable and no acute distress Other: A&O x3 HENMT: Mouth: Yes moist mucous membranes Eyes: Pupils: Equal, round and reactive pupils present Neck: Neck: supple Resp: Effort & Inspection: normal respiratory effort Auscultation: clear to auscultation bilaterally Cardio: Rate: bradycardic Rhythm: regular rhythm Heart sounds: no gallops, no murmurs and no rubs GI: Inspection: non-distended : General: Yes bladder normal to palpation Bimanual exam- vagina & uterus: bladder normal to palpation Neuro: Cranial nerves: Yes Equal, round and reactive pupils present Speech: normal speech Motor exam (neuro): 5/5 motor strength present throughout Sensory Exam: normal sensation Other: Cranial nerves 2-12 grossly intact. No focal deficits. Extrem: Other: Trace edema bilateral lower extremities distal to the knees. Poor skin turgor. Psych: Affect: normal affect Objective Data Vital Signs Vital Signs: Vital Signs - 24 hr 08/29/24 17:41 08/29/24 18:53 08/29/24 18:53 Temperature 97.6 F 97.6 F Pulse Rate 54 L 49 L 55 L Respiratory Rate 18 16 Blood Pressure 144/59 H 148/62 H Pulse Oximetry 100 100 Oxygen Delivery Room Air 08/29/24 20:03 08/29/24 20:51 08/29/24 22:00 Temperature 97.9 F 97.9 F Pulse Rate 46 L 50 L 50 L Respiratory Rate 15 15 15 Blood Pressure 168/54 H 159/63 H 177/68 H Pulse Oximetry 100 100 100 Oxygen Delivery 08/29/24 22:51 08/30/24 04:00 08/30/24 05:26 Temperature 97.2 F L Pulse Rate 51 L 47 L Respiratory Rate 16 Blood Pressure 160/63 H Pulse Oximetry 100 Oxygen Delivery Room Air 08/30/24 08:00 08/30/24 08:00 Temperature Pulse Rate 56 L Respiratory Rate Blood Pressure Pulse Oximetry Oxygen Delivery Room Air Intake/Output Intake/Output: Intake & Output 08/27/24 08/28/24 08/29/24 08/30/24 23:59 23:59 23:59 23:59 Intake Total 1000 520 Balance 1000 520 Meds/Results Medications: Active Medications Generic Name Dose Route Start Last Admin Trade Name Freq PRN Reason Stop Dose Admin Levofloxacin/Dextrose 750 mg in 150 mls @ 100 mls/hr 08/31/24 21:00 Levaquin 750 Mg/D5w 150 Ml IVPB Q48H SALMA Levothyroxine Sodium 150 mcg 08/30/24 06:30 08/30/24 06:07 Levothyroxine Sodium 150 Mcg Tablet PO Not Given DAILY@0630 [facility] Loperamide HCl 2 mg 08/30/24 01:07 Loperamide Hcl 2 Mg Capsule PO Q2H PRN Diarrhea Meclizine HCl 25 mg 08/30/24 01:07 Meclizine Hcl 25 Mg Tablet PO Q8H PRN Dizziness Melatonin 5 mg 08/30/24 02:10 Melatonin 5 Mg Tablet PO HS PRN Insomnia Pantoprazole Sodium 40 mg 08/30/24 09:00 08/30/24 09:07 Pantoprazole 40 Mg Tablet PO 40 mg Q12HR SALMA Administration Radiology Results: ITS Impressions Chest X-Ray 08/29/24 18:22 IMPRESSION: No focal infiltrate or effusion. Head CT 08/29/24 18:51 IMPRESSION: 1. No fracture or acute intracranial process. 2. Stable appearance of decreased white matter attenuation consistent with chronic small vessel ischemic disease with regions of more significantly decreased attenuation in the bilateral frontal and frontoparietal regions with distribution suggesting possible superimposed chronic small white matter watershed infarcts due to a hypotensive episode. Cervical Spine CT 08/29/24 19:00 IMPRESSION: 1. 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 No acute osseous abnormality. Labs Labs: Laboratory Results - last 24 hr 08/29/24 08/29/24 08/30/24 17:54 19:36 06:18 WBC 7.6 6.5 RBC 4.02 L 3.68 L Hgb 12.5 11.2 L Hct 37.4 34.4 L MCV 93.0 93.5 MCH 31.1 30.4 MCHC 33.4 32.6 RDW 15.6 H 15.4 H Plt Count 268 226 MPV 12.3 H 12.3 H Immature Gran % (Auto) 0.1 0.3 Neut % (Auto) 79.0 H 53.5 Lymph % (Auto) 15.2 L 36.6 [place] % (Auto) 4.1 7.4 Eos % (Auto) 0.5 1.1 Baso % (Auto) 1.1 1.1 Lymph # (Auto) 1.15 2.37 [place] # (Auto) 0.3 0.5 Eos # (Auto) 0.0 0.1 Baso # (Auto) 0.1 0.1 Abs Immat Gran (auto) 0.01 0.02 Absolute Neuts (auto) 6.0 3.5 Absolute Nucleated RBC 0.000 0.000 Nucleated RBC % 0.0 0.0 PT 13.5 INR 1.0 APTT 27.1 Sodium 142 140 Potassium 4.5 4.1 Chloride 108 H 109 H Carbon Dioxide 25 24 Anion Gap 9 7 BUN 36 H D 30 H Creatinine 1.60 H 1.50 H Estim Creat Clear Calc 20 21 Estimated GFR 31 L 33 L Glucose 153 H 69 Calcium 9.5 8.9 Magnesium 1.8 1.7 Total Bilirubin 0.6 AST 26 ALT 14 Alkaline Phosphatase 73 Troponin I 0.012 NT-Pro-B Natriuret Pep 2160 H Total Protein 8.0 Albumin 4.1 TSH (Reflex) 1.260 Urine Color Yellow Urine Appearance Cloudy H Urine pH 5.5 Ur Specific [place] 1.018 Urine Protein 2+ H Urine Glucose (UA) Negative Urine Ketones Trace H Ur Blood (Man) Non-hemolyzed trace H Urine Nitrate Positive H Urine Bilirubin Negative Urine Urobilinogen 0.2 Leukocyte Esterase Rfl 3+ H Urine RBC 3-5 H Urine WBC >100 H Ur Squamous Epith Cells None seen Urine Bacteria 4+ H Urine Casts 3-5
[2024-08-30] MEDS: MELATONIN 5 MG TABLET PO (21:20)
[2024-08-31] VITALS (12 sets, daily range): BP systolic 129–149; BP diastolic 55–66; PULSE 45–63; RESP 16–18; TEMP 36.7–36.8; O2SAT 98–100
[2024-08-31] MEDS: LEVOTHYROXINE SODIUM 150 MCG TABLET PO (06:42)
[2024-08-31] MEDS: PANTOPRAZOLE 40 MG TABLET PO ×2 (08:40→21:18)
--- NOTE | 2024-08-31 09:55 | PC.NURSE ---
Patient resting in bed after eating breakfast. Patient refuses to wear binder even with extensive education that it could help keep her from passing out/falling again. Patient states it irritates me . She is unable to answer my what is 2 plus 2 neuro question as she states I am not good at math . She was calm and cooperative with medication.
--- NOTE | 2024-08-31 11:06 | P.PNIM_ITS ---
Progress Note: A&P Assessment and Plan (1) Syncope: Qualifiers: Syncope type: unspecified Qualified Code(s): R55 - Syncope and collapse Code(s): R55 - Syncope and collapse Status: Acute Assessment and Plan: The patient has sinus bradycardia but this is usual for her. She remains in sinus bradycardia and is currently asymptomatic. Her syncope is likely related to SHOH, and possibly dehydration from diarrhea. The patient had an admission in February 2024 with the exact same problem list including hypertension UTI and syncope. At the end of that admission orthostatic vitals were checked and her supine blood pressure is 181/65 and standing blood pressure 158/71. It is unclear if this was truly orthostatic because an additional blood pressure was checked supine which recorded 152/63. In any case, the patient was discharged home on a new prescription of losartan 25 mg p.o. q.day. this could be the culprit for her orthostatic hypotension. Check orthostatic Hold losartan for now. Abdominal binder has been ordered. If orthostatics are clearly positive then she can be educated on behavioral changes including appropriate use of abdominal binder, purchasing a waist high compression stockings which we do not have in supply at this hospital, raising from sleep at a slow pace and then from sitting to standing at a slow pace (2) UTI (urinary tract infection): Qualifiers: Hematuria presence: with hematuria Urinary tract infection type: acute cystitis Qualified Code(s): N30.01 - Acute cystitis with hematuria Code(s): N39.0 - Urinary tract infection, site not specified Status: Acute Assessment and Plan: She denies any burning micturition, any change in her urinary frequency. Currently she is asymptomatic however will treat as a UTI with levofloxacin. She previous had Proteus mirabilis and E coli sensitive to fluoroquinolones. She is allergic to penicillin. Follow urine culture and tailor as needed. Blood cultures have been drawn as well. (3) Supine hypertension: Code(s): I10 - Essential (primary) hypertension Status: Acute Assessment and Plan: - hold home BP meds Plan Holding donepezil as it interacts with levofloxacin to increase to QTC. Home meds have been restarted as appropriate otherwise. 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 Patient lives at home with a friend. She denies recreational drug use, alcohol use, tobacco abuse. Time Spent With Patient Time with patient: Greater than 35 minutes Subjective Date/time seen: 08/31/24 11:06 Interval history: Syncope Narrative: 84-year-old female with a PMH hypothyroidism, hypertension, GERD, sinus bradycardia asymptomatic, chronic diarrhea, CKD, orthostatic hypotension with history of syncope, hypertension. She presents to [facility] on 08/29[facility] via EMS as she had syncopal episode at home. She lives with a friend and states she was sitting in her couch when she passed out. Her friend witnessed this. She had no aura or prodrome at all. Upon extensive questioning the patient reports she has been feeling at her baseline. She feels she has been hydrating. She has had no changes in her hydration level. She denies any abdominal pain nausea vomiting, she does have chronic diarrhea. She denies any burning micturition, any change in her urinary frequency. Her friend stated she hit her head on a wall and woke up a few seconds later without any postictal state. [place] ER evaluation demonstrates supine hypertension, orthostatic hypotension, WBC 7.6, afebrile, BUN 36, serum creatinine 1.6 which is around her baseline. BNP 2160, troponin 0.012. EKG demonstrated sinus bradycardia which is her usual. No acute ischemic changes. Urinalysis grossly abnormal with positive nitrates, cloudy appearance, 4+ bacteria, greater than 100 WBC. Chest x-ray without acute process, CT head without acute intracranial process, chronic small vessel ischemic disease with significantly decreased attenuation in bilateral frontal and frontoparietal regions suggesting superimposed watershed infarcts due to hypotension. CT cervical spine without acute osseous abnormalities. In the ER she was administered levofloxacin 750 mg IV x1, 1 L normal saline bolus. Admitted on 08/30/2024 further evaluation and management of syncope and SHOH. 08/30 pt is seen and examined. She is comfortable- reports no pain, increased weakness at home. 08/31- pt/ot is ordered. HR remains around 50-60's. Complains about getting up and being in a chair and wearing abd binder- but overall-no acute issues. Work with PT/OT- if stable-anticipate discharge with holter monitor. Review of Systems Review of Systems: All systems reviewed & are unremarkable except as noted in HPI and below (Subjective) Exam Const: General: comfortable and no acute distress Other: A&O x3 HENMT: Mouth: Yes moist mucous membranes Eyes: Pupils: Equal, round and reactive pupils present Neck: Neck: supple Resp: Effort & Inspection: normal respiratory effort Auscultation: clear to auscultation bilaterally Cardio: Rate: bradycardic Rhythm: regular rhythm Heart sounds: no gallops, no murmurs and no rubs GI: Inspection: non-distended : General: Yes bladder normal to palpation Bimanual exam- vagina & uterus: bladder normal to palpation Neuro: Cranial nerves: Yes Equal, round and reactive pupils present Speech: normal speech Motor exam (neuro): 5/5 motor strength present throughout Sensory Exam: normal sensation Other: Cranial nerves 2-12 grossly intact. No focal deficits. Extrem: Other: Trace edema bilateral lower extremities distal to the knees. Poor skin turgor. Psych: Affect: normal affect Objective Data Vital Signs Vital Signs: Vital Signs - 24 hr 08/30/24 12:00 08/30/24 13:18 08/30/24 14:00 Temperature 97.1 F L Pulse Rate 65 70 Respiratory Rate 20 Blood Pressure 131/65 Pulse Oximetry 100 Oxygen Delivery Room Air 08/30/24 16:00 08/30/24 20:02 08/30/24 20:00 Temperature 97.5 F L Pulse Rate 58 L 60 Respiratory Rate 16 Blood Pressure 142/61 H 149/69 H Pulse Oximetry 99 Oxygen Delivery 08/30/24 20:03 08/30/24 20:00 08/30/24 20:00 Temperature Pulse Rate 54 L Respiratory Rate Blood Pressure 150/66 H Pulse Oximetry Oxygen Delivery Room Air 08/31/24 00:00 08/31/24 04:00 08/31/24 05:51 Temperature 98.1 F Pulse Rate 53 L 45 L 63 Respiratory Rate 16 Blood Pressure 143/66 H Pulse Oximetry 100 Oxygen Delivery 08/31/24 06:09 Temperature Pulse Rate 49 L Respiratory Rate Blood Pressure Pulse Oximetry Oxygen Delivery Intake/Output Intake/Output: Intake & Output 08/28/24 08/29/24 08/30/24 08/31/24 23:59 23:59 23:59 23:59 Intake Total 1000 1500 736 Balance 1000 1500 736 Meds/Results Medications: Active Medications Generic Name Dose Route Start Last Admin Trade Name Freq PRN Reason Stop Dose Admin Levofloxacin/Dextrose 750 mg in 150 mls @ 100 mls/hr 08/31/24 21:00 Levaquin 750 Mg/D5w 150 Ml IVPB Q48H SALMA Levothyroxine Sodium 150 mcg 08/30/24 06:30 08/31/24 06:42 Levothyroxine Sodium 150 Mcg Tablet PO 150 mcg DAILY@0630 SALMA Administration Loperamide HCl 2 mg 08/30/24 01:07 Loperamide Hcl 2 Mg Capsule PO Q2H PRN Diarrhea Meclizine HCl 25 mg 08/30/24 01:07 Meclizine Hcl 25 Mg Tablet PO Q8H PRN Dizziness Melatonin 5 mg 08/30/24 02:10 08/30/24 21:20 Melatonin 5 Mg Tablet PO 5 mg HS PRN Administration Insomnia Pantoprazole Sodium 40 mg 08/30/24 09:00 08/31/24 08:40 Pantoprazole 40 Mg Tablet PO 40 mg Q12HR SALMA Administration Radiology Results: ITS Impressions Chest X-Ray 08/29/24 18:22 IMPRESSION: No focal infiltrate or effusion. Head CT 08/29/24 18:51 IMPRESSION: 1. No fracture or acute intracranial process. 2. Stable appearance of decreased white matter attenuation consistent with chronic small vessel ischemic disease with regions of more significantly decreased attenuation in the bilateral frontal and frontoparietal regions with distribution suggesting possible superimposed chronic small white matter watershed infarcts due to a hypotensive episode. Cervical Spine CT 08/29/24 19:00 IMPRESSION: 1. 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 No acute osseous abnormality.
[2024-08-31] MEDS: levoFLOXacin 750 MG/D5W 150 ML 750 MG/150 ML BAG 100 MG IVPB (21:09)
[2024-08-31] MEDS: MELATONIN 5 MG TABLET PO (21:18)
[2024-09-01] VITALS (12 sets, daily range): BP systolic 137–153; BP diastolic 56–69; PULSE 52–64; RESP 13–20; TEMP 36.4–36.6; O2SAT 96–100
[2024-09-01] MEDS: LEVOTHYROXINE SODIUM 150 MCG TABLET PO (06:21)
--- NOTE | 2024-09-01 06:37 | PC.NURSE ---
patient asked if she is getting a bed sore because her butt hurts. this rn informed patient her butt is red but not open. rn provided extensive education about turning and positioning and why it is important. patient refused to turn initially then agreed to a pillow behind her back. within 5 minutes patient stated she needs to lay on her back because she can't drink pepsi with a pillow behind her back
[2024-09-01] MEDS: PANTOPRAZOLE 40 MG TABLET PO ×2 (08:49→20:21)
--- NOTE | 2024-09-01 10:08 | PC.NURSE ---
Patient sitting on the side of the bed finishing breakfast. She wanted to lay back down and was boosted and covered to her requests. Cold Pepsi with straw brought to her per her request. Blinds at an acceptable level and all her medical and care questions and concerns were addressed. Call light within reach.
--- NOTE | 2024-09-01 12:46 | PM.IMPN ---
Progress Note: A&P Assessment and Plan (1) Syncope: Qualifiers: Syncope type: unspecified Qualified Code(s): R55 - Syncope and collapse Code(s): R55 - Syncope and collapse Status: Acute Assessment and Plan: The patient has sinus bradycardia but this is usual for her. She remains in sinus bradycardia and is currently asymptomatic. Her syncope is likely related to SHOH, and possibly dehydration from diarrhea. The patient had an admission in February 2024 with the exact same problem list including hypertension UTI and syncope. At the end of that admission orthostatic vitals were checked and her supine blood pressure is 181/65 and standing blood pressure 158/71. It is unclear if this was truly orthostatic because an additional blood pressure was checked supine which recorded 152/63. In any case, the patient was discharged home on a new prescription of losartan 25 mg p.o. q.day. this could be the culprit for her orthostatic hypotension. Check orthostatic Hold losartan for now. Abdominal binder has been ordered. If orthostatics are clearly positive then she can be educated on behavioral changes including appropriate use of abdominal binder, purchasing a waist high compression stockings which we do not have in supply at this hospital, raising from sleep at a slow pace and then from sitting to standing at a slow pace (2) UTI (urinary tract infection): Qualifiers: Hematuria presence: with hematuria Urinary tract infection type: acute cystitis Qualified Code(s): N30.01 - Acute cystitis with hematuria Code(s): N39.0 - Urinary tract infection, site not specified Status: Acute Assessment and Plan: She denies any burning micturition, any change in her urinary frequency. Currently she is asymptomatic however will treat as a UTI with levofloxacin. She previous had Proteus mirabilis and E coli sensitive to fluoroquinolones. She is allergic to penicillin. Follow urine culture and tailor as needed. Blood cultures have been drawn as well. 09/01 discussed possible discharge today/tomorrow-pt wants to leave tomorrow- will downgrade to PO tommorrowand discharge to complete the therapy (3) Supine hypertension: Code(s): I10 - Essential (primary) hypertension Status: Acute Assessment and Plan: -BP had been elevated slightly- will try 2.5 mg of amlodipine and see if it helps with bp without causing SHOH Plan Holding donepezil as it interacts with levofloxacin to increase to QTC. Home meds have been restarted as appropriate otherwise. 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 Patient lives at home with a friend. She denies recreational drug use, alcohol use, tobacco abuse. Time Spent With Patient Time with patient: Greater than 35 minutes Subjective Date/time seen: 09/01/24 12:46 Interval history: Syncope Narrative: 84-year-old female with a PMH hypothyroidism, hypertension, GERD, sinus bradycardia asymptomatic, chronic diarrhea, CKD, orthostatic hypotension with history of syncope, hypertension. She presents to [facility] on 08/29/[facility]24 via EMS as she had syncopal episode at home. She lives with a friend and states she was sitting in her couch when she passed out. Her friend witnessed this. She had no aura or prodrome at all. Upon extensive questioning the patient reports she has been feeling at her baseline. She feels she has been hydrating. She has had no changes in her hydration level. She denies any abdominal pain nausea vomiting, she does have chronic diarrhea. She denies any burning micturition, any change in her urinary frequency. Her friend stated she hit her head on a wall and woke up a few seconds later without any postictal state. [place] ER evaluation demonstrates supine hypertension, orthostatic hypotension, WBC 7.6, afebrile, BUN 36, serum creatinine 1.6 which is around her baseline. BNP 2160, troponin 0.012. EKG demonstrated sinus bradycardia which is her usual. No acute ischemic changes. Urinalysis grossly abnormal with positive nitrates, cloudy appearance, 4+ bacteria, greater than 100 WBC. Chest x-ray without acute process, CT head without acute intracranial process, chronic small vessel ischemic disease with significantly decreased attenuation in bilateral frontal and frontoparietal regions suggesting superimposed watershed infarcts due to hypotension. CT cervical spine without acute osseous abnormalities. In the ER she was administered levofloxacin 750 mg IV x1, 1 L normal saline bolus. Admitted on 08/30/2024 further evaluation and management of syncope and SHOH. 08/30 pt is seen and examined. She is comfortable- reports no pain, increased weakness at home. 08/31- pt/ot is ordered. HR remains around 50-60's. Complains about getting up and being in a chair and wearing abd binder- but overall-no acute issues. Work with PT/OT- if stable-anticipate discharge with holter monitor. 09/01- she does not think she is back to her baseline- she feels fine but wants to work with PT/OT one more day. Will anticipate discharge tomorrow. Will start very low dose of amlodipine 2.5 mg to help with BP and hopefully not cause SHOH. Review of Systems Constitutional: Constitutional: Denies body ache(s) and Denies chills Eyes: Eyes: Denies blurry vision ENT: Denies nasal congestion Cardiovascular: Cardiovascular: Denies chest pain Respiratory: Respiratory: Denies chest congestion Gastrointestinal: Gastrointestinal: Denies abdominal pain and Reports diarrhea Neurologic: Denies confusion Psychiatric: Psychiatric: Denies anxiety Exam Const: General: comfortable and no acute distress Other: A&O x3 HENMT: Mouth: Yes moist mucous membranes Eyes: Pupils: Equal, round and reactive pupils present Neck: Neck: supple Resp: Effort & Inspection: normal respiratory effort Auscultation: clear to auscultation bilaterally Cardio: Rate: bradycardic Rhythm: regular rhythm Heart sounds: no gallops, no murmurs and no rubs GI: Inspection: non-distended : General: Yes bladder normal to palpation Bimanual exam- vagina & uterus: bladder normal to palpation Neuro: Cranial nerves: Yes Equal, round and reactive pupils present Speech: normal speech Motor exam (neuro): 5/5 motor strength present throughout Sensory Exam: normal sensation Other: Cranial nerves 2-12 grossly intact. No focal deficits. Psych: Affect: normal affect Objective Data Vital Signs Vital Signs: Vital Signs - 24 hr 08/31/24 14:00 08/31/24 14:00 08/31/24 14:05 Temperature 98.2 F Pulse Rate 53 L Respiratory Rate 18 Blood Pressure 135/55 L 135/55 L 133/60 Pulse Oximetry 98 Oxygen Delivery 08/31/24 14:10 08/31/24 16:00 08/31/24 21:29 Temperature 98.1 F Pulse Rate 54 L 55 L Respiratory Rate 16 Blood Pressure 129/58 L 149/57 H Pulse Oximetry 98 Oxygen Delivery 08/31/24 20:00 08/31/24 20:00 09/01/24 00:00 Temperature Pulse Rate 54 L 57 L Respiratory Rate Blood Pressure Pulse Oximetry Oxygen Delivery Room Air 09/01/24 04:00 09/01/24 05:44 09/01/24 08:08 Temperature 97.6 F Pulse Rate 56 L 52 L Respiratory Rate 13 Blood Pressure 153/69 H Pulse Oximetry 98 96 Oxygen Delivery Room Air 09/01/24 08:00 09/01/24 12:00 Temperature Pulse Rate 52 L 64 Respiratory Rate Blood Pressure Pulse Oximetry Oxygen Delivery Intake/Output Intake/Output: Intake & Output 08/29/24 08/30/24 08/31/24 09/01/24 23:59 23:59 23:59 23:59 Intake Total 1000 1500 1244 290 Balance 1000 1500 1244 290 Meds/Results Medications: Active Medications Generic Name Dose Route Start Last Admin Trade Name Freq PRN Reason Stop Dose Admin Levofloxacin/Dextrose 750 mg in 150 mls @ 100 mls/hr 08/31/24 21:00 08/31/24 22:39 Levaquin 750 Mg/D5w 150 Ml IVPB Infused Q48H SALMA Infusion Levothyroxine Sodium 150 mcg 08/30/24 06:30 09/01/24 06:21 Levothyroxine Sodium 150 Mcg Tablet PO 150 mcg DAILY@0630 SALMA Administration Loperamide HCl 2 mg 08/30/24 01:07 Loperamide Hcl 2 Mg Capsule PO Q2H PRN Diarrhea Meclizine HCl 25 mg 08/30/24 01:07 Meclizine Hcl 25 Mg Tablet PO Q8H PRN Dizziness Melatonin 5 mg 08/30/24 02:10 08/31/24 21:18 Melatonin 5 Mg Tablet PO 5 mg HS PRN Administration Insomnia Pantoprazole Sodium 40 mg 08/30/24 09:00 09/01/24 08:49 Pantoprazole 40 Mg Tablet PO 40 mg Q12HR SALMA Administration Radiology Results: ITS Impressions Chest X-Ray 08/29/24 18:22 IMPRESSION: No focal infiltrate or effusion. Head CT 08/29/24 18:51 IMPRESSION: 1. No fracture or acute intracranial process. 2. Stable appearance of decreased white matter attenuation consistent with chronic small vessel ischemic disease with regions of more significantly decreased attenuation in the bilateral frontal and frontoparietal regions with distribution suggesting possible superimposed chronic small white matter watershed infarcts due to a hypotensive episode. Cervical Spine CT 08/29/24 19:00 IMPRESSION: 1. 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 No acute osseous abnormality.
[2024-09-01] MEDS: MELATONIN 5 MG TABLET PO (20:21)
[2024-09-02] VITALS (11 sets, daily range): BP systolic 126–160; BP diastolic 52–70; PULSE 48–60; RESP 18–20; TEMP 36.3–36.8; O2SAT 100
[2024-09-02] MEDS: LOPERAMIDE HCL 2 MG CAPSULE PO (00:33)
[2024-09-02] MEDS: LEVOTHYROXINE SODIUM 150 MCG TABLET PO (05:05)
[2024-09-02] MEDS: amLODIPine BESYLATE 2.5 MG TABLET PO (08:40)
[2024-09-02] MEDS: PANTOPRAZOLE 40 MG TABLET PO (08:44)
--- NOTE | 2024-09-02 10:27 | PC.NURSE ---
On 09/02/24, the student, [Mikel Douglas ], provided care and completed [facility] documentation on this patient. I have reviewed the student's documentation and agree with the findings.
--- NOTE | 2024-09-02 10:28 | PC.NURSE ---
On 09/02/24, the student, [Matty Montana ], provided care and completed [facility] documentation on this patient. I have reviewed the student's documentation and agree with the findings.
--- NOTE | 2024-09-02 12:34 | PC.NURSE ---
On 09/02/24, the student, [Matty Montana ], provided care and completed [facility] documentation on this patient. I have reviewed the student's documentation and agree with the findings.
--- NOTE | 2024-09-02 12:54 | P.DS_ITS ---
DS: Admitting Diagnosis Discharge Date 09/02 Admitting Diagnosis dizzy DS: Discharge Diagnosis Discharge Diagnosis (1) Syncope: Qualifiers: Syncope type: unspecified Qualified Code(s): R55 - Syncope and collapse Code(s): R55 - Syncope and collapse Status: Acute (2) UTI (urinary tract infection): Qualifiers: Hematuria presence: with hematuria Urinary tract infection type: acute cystitis Qualified Code(s): N30.01 - Acute cystitis with hematuria Code(s): N39.0 - Urinary tract infection, site not specified Status: Acute (3) Supine hypertension: Code(s): I10 - Essential (primary) hypertension Status: Acute Plan DS: Summary Hospital Course Hospital Course: Pt was admitted for dizziness and bradycardia. [place] [facility] evaluation demonstrates supine hypertension, orthostatic hyp otension, WBC 7.6, afebrile, BUN 36, serum creatinine 1.6 which is around her baseline. BNP 2160, troponin 0.012. EKG demonstrated sinus bradycardia which is her usual. No acute ischemic changes. Urinalysis grossly abnormal with positive nitrates, cloudy appearance, 4+ bacteria, greater than 100 WBC. Chest x-ray without acute process, CT head without acute intracranial process, chronic small vessel ischemic disease with significantly decreased attenuation in bilateral frontal and frontoparietal regions suggesting superimposed watershed infarcts due to hypotension. CT cervical spine without acute osseous abnormalities. In the ER she was administered levofloxacin 750 mg IV, 1 L normal saline bolus. She completed a course of antibiotics- last dose today 09/02 at 1500. We stopped her losartan and started her on 2.5 mg dose daily of amlodipine to help with BP and not cause pressure drops. She had been stable with BP and dizziness while here. She was educated on behavioral changes to help with SHOH- including appropriate use of abdominal binder, purchasing a waist high compression stockings,, raising from sleep at a slow pace and then from sitting to standing at a slow pace She was instructed to wear it and was shown with return demonstration on how to put it on and take it off. We recommend that she would f/u with cardiology or PCP to get Holter monitor- we will provide an order for it for her bradycardia and evaluate if there is any arrhythmia. Time Spent with Patient Time attestation: Total time spent providing and/or coordinating discharge services: Exam Const: General: comfortable and no acute distress; No confusion Orientation/consciousness: No confusion Other: A&O x3 HENMT: Mouth: Yes moist mucous membranes Eyes: Pupils: Equal, round and reactive pupils present Neck: Neck: supple Resp: Effort & Inspection: normal respiratory effort Auscultation: clear to auscultation bilaterally Cardio: Rate: bradycardic Rhythm: regular rhythm Heart sounds: no gallops, no murmurs and no rubs GI: Inspection: non-distended : General: Yes bladder normal to palpation Bimanual exam- vagina & uterus: bladder normal to palpation Neuro: General: No confusion Cranial nerves: Yes Equal, round and reactive pupils present Speech: normal speech Motor exam (neuro): 5/5 motor strength present throughout Sensory Exam: normal sensation Other: Cranial nerves 2-12 grossly intact. No focal deficits. Extrem: Other: Trace edema bilateral lower extremities distal to the knees. Poor skin turgor. Psych: Affect: normal affect DS: Data Data Completed and Pending Completed studies during hospitalization: head CT, cervical ct, chest xray Labs on day of discharge: Preliminary micro results at discharge 08/29/24 20:39 Blood Culture - Preliminary Blood 08/29/24 20:39 Blood Culture - Preliminary Blood Discharge Plan Discharge Discharging Clinician: Selene Weber Patient Disposition: Home Health Service Activity: may shower Diet: as tolerated and heart healthy Discharge Instructions: You were admitted for dizziness and slow heart rate. You stopped your losartan (blood pressure medication) and started you on very low dose of amlodipine. PLease make sure you do not take both when you get home. As we discussed please wear your abdominal binder when you can, wear high compression stockings, raising from sleep at a slow pace and then from sitting to standing at a slow pace. I will order a Holter monitor- please bring this order to your astronomy department chair or PCP so that monitor could be ordered. IT is very easy to apply- the instructions will come with it- or you may bring it to your pcp or cardiology aldair- so they could help you apply it and provide instructions on how long to wear and when you should follow up. You had urinary track infection and we treated you with antibiotics- you completed 5 days of it and no more antibiotics need to be taken when you come home. Patient Instructions: Antibiotic Form Stand Alone Forms: General Discharge Information Follow-up/Referrals: Leann Thornton, [facility] [Advanced Practice Nurse] - 2 Weeks (please f/u with cardiology for Holter monitor set up) Henry Hinojosa MD [Primary Care Provider] - 2 Weeks Discharge Medications: New amlodipine 2.5 mg Tablet 2.5 mg PO QAM Qty: 90 0RF Continued meclizine 25 mg tablet 25 mg PO Q8H PRN (Reason: Dizziness) Rx Instructions: TAKE 1 TABLET BY MOUTH THREE TIMES DAILY NEEDED FOR DIZZINESS levothyroxine 150 mcg tablet 150 mcg PO DAILY Rx Instructions: Take 1 tablet by mouth once daily melatonin 10 mg Tablet 10 mg PO HS PRN (Reason: Insomnia) loperamide 2 mg Capsule 2 mg PO .q2hr MDD 16mg/day PRN (Reason: Diarrhea) Qty: 90 1RF donepezil 5 mg tablet 5 mg PO DAILY pantoprazole 40 mg tablet,delayed release (DR/EC) 40 mg PO BID 30 Days Qty: 180 3RF Discontinued losartan 50 mg tablet 50 mg PO DAILY 90 Days Qty: 90 1RF losartan 25 mg tablet 25 mg PO .5PM Date of admission: 08/29/24 20:45 Primary Care Provider: Henry Hinojosa Admitting Provider: Carmen Art Attending physician on admission: Carmen Art Condition: Stable Hospitalist MIPS Heart Failure (Exclusion) Patient has history of Heart Transplant or Left Ventricular Assistive Device?: No IF YES, STOP HERE Heart Failure (Qualifier) Patient has current or prior documentation of LVEF less than or equal to 40%, or mod/servere depressed LVSF?: No IF NO, STOP HERE
[2024-09-02] MEDS: levoFLOXacin 750 MG TABLET PO (14:06)
[2024-09-02] MEDS: INFLUENZA VACCINE HIGH DOSE (>64) 180 MCG/0.5 ML SYRINGE IM (14:07)
--- NOTE | 2024-09-02 15:43 | PC.NURSE ---
Pt has participated and contributed intermittently with plan of care. Pt has been discharged home with resident care director. Pt will be taken home in private vehicle when resident care director arrives. Pt has been educated on discharge instructions and when to follow up with referrals. Pt educated on medication changes. Education reinforced many times while in the room. Pt verbalizes understanding of teaching. Pt requests that teaching be given to resident care director. Will educate resident care director when she arrives. Pt has been and will continue to be monitored for any changes of status while here.
== END 2024-09-02 16:20 | disposition home health service (06) ==
LOC: ANHED 20:45 → ANH3MEDSUR 21:32
PROVIDERS: Emergency Medicine; Admitting Provider General Practice; Emergency Provider Physician Assistant; PCP Emergency Medicine; Visit Provider General Practice
DX: R55 Syncope and collapse (principal); N30.01 Acute cystitis with hematuria; I13.0 Hypertensive heart and chronic kidney disease with heart failure and stage 1 through stage 4 chronic kidney disease, or unspecified chronic kidney disease; I50.30 Unspecified diastolic (congestive) heart failure; N18.9 Chronic kidney disease, unspecified; J44.9 Chronic obstructive pulmonary disease, unspecified; R19.7 Diarrhea, unspecified; R00.1 Bradycardia, unspecified; E03.9 Hypothyroidism, unspecified; K21.9 Gastro-esophageal reflux disease without esophagitis; I73.9 Peripheral vascular disease, unspecified; E55.9 Vitamin D deficiency, unspecified; F41.8 Other specified anxiety disorders; M06.9 Rheumatoid arthritis, unspecified; Z23 Encounter for immunization; Z86.718 Personal history of other venous thrombosis and embolism; Z87.891 Personal history of nicotine dependence; Z66 Do not resuscitate
CPT/HCPCS: 36415; 70450; 71045; 72125; 80048; 80053; 81001; 83735; 83880; 84443; 84484; 85025; 85610; 85730; 87040; 87077; 87086; 87186; 90471; 90662; 93005; 96361; 96365; 96366; 96374; 96376; 97110; 97116; 97161; 97165; 97530; 99285; A9270; G0008; G0378; J1956; J7030

== ENCOUNTER 2024-11-06 16:32 | Inpatient (IN) | payer MEDICARE, MEDICAID, SELFPAY ==
[2024-11-06] VITALS (9 sets, daily range): BP systolic 155–188; BP diastolic 74–93; PULSE 55–69; RESP 14–19; TEMP 36.7; O2SAT 95–98
--- NOTE | ~2024-11-06 | CT_ITS ---
CLINICAL INDICATION: Abdominal pain and vomiting postoperative bowel resection COMPARISON: 11/06/2024. TECHNIQUE: Multiple contiguous axial images of the abdomen and pelvis were performed following the ad ministration of with 100 mL Omnipaque-350 intravenous contrast The dose-length product (DLP) was 497.50 mGy-cm. Automated exposure control and iterative reconstruction technique were employed. FINDINGS/OBSERVATIONS: Visualized lower thorax: Bilateral pleural effusions (moderate on the right and small on the left) with adjacent compressive a telectasis. The heart is of normal size, without pericardial effusion. Small hiatal hernia is present. Liver: The liver is enlarged and demonstrates diffuse fatty infiltration measuring 19 cm in longitudinal dim ension. Focal fatty sparing is identified within segment 4, unchanged. Interval development of periportal edema when compared with 11/06/2024. Gallbladder and biliary system: The gallbladder is surgically absent. Pancreas: The pancreas demonstrates multiple calcifications, consistent with chronic pancreatitis. Spleen: A well-circumscribed focus of fluid attenuation is identified within the spleen measuring 27 mm in gr eatest dimension, likely a splenic cyst. The remainder of the spleen otherwise enhances homogeneously and is not enlarged measuring 6 cm in lo ngitudinal dimension. Kidneys: The bilateral kidneys enhance symmetrically without hydronephrosis. Multiple subcentimeter areas of decreased attenuation detected bilaterally, too small to characterize . The largest of these measures 16 mm and is exophytic, and located within the interpolar region of t he left kidney. No discrete right-sided renal lesion is appreciated on the current examination. Adrenal glands: Redemonstration of a focus of mixed attenuation and heterogeneous enhancement within the left adrenal gland measuring 4.5 x 3.5 x 5.6 cm (anterior to posterior x medial to lateral x cranial to caudal di mension). Gastrointestinal tract: Enteric anastomosis within the lower abdomen, to the right of midline. Surrounding free fluid and inf iltration of the adjacent mesenteric fat. Mural thickening and edema within the efferent limb of the distal small bowel, just proximal to the e nteric anastomosis. Mural thickening and edema within the distal stomach and proximal duodenum. No free air is identified. Appendix: Not identified, likely surgically absent. Vasculature: Densely calcified atherosclerotic disease. No aneurysmal dilatation or dissection is appreciated. Significant distention and surrounding venous congestion is identified within the distal branches of the ileocolic/right colic vein, possibly perioperative in origin Lymph nodes: No pathologically enlarged or morphologically suspicious lymph nodes within the retroperitoneum or at the root of the mesentery. Pelvic structures: The bladder is distended, and otherwise unremarkable. Redemonstration of fluid and soft tissue attenuation material distending the endometrial cavity, for which direct visualization is recommended. Body wall and musculoskeletal: Skin daphne consistent with patient's history. Significant degenerative disease within the lumbosacral spine with osteophyte formation, disc space n arrowing, endplate changes and vacuum phenomena. Small bore catheter within the superficial soft tissues, deep to the skin daphne. Moderate anasarca. IMPRESSION: Mural thickening and edema within the efferent limb of the distal small bowel, just proximal to the a nastomosis. Limited evaluation of the integrity of the anastomosis, secondary to patient's recent perioperative s darden. Significant distention and surrounding venous congestion within the distal branches of the ileocolic vein/right colic vein, possibly perioperative in origin. No central filling defect is appreciated. Bilateral pleural effusions with adjacent compressive atelectasis. Indeterminate focus within the left kidney. Splenic cyst. Large left adrenal mass. Reviewed, dictated and finalized at location [facility]. PARTNER IMPRESSION: Mural thickening and edema within the efferent limb of the distal small bowel, just proximal to the anastomosis. Limited evaluation of the integrity of the anastomosis, secondary to patient's recent perioperative state. Significant distention and surrounding venous congestion within the distal bran ches of the ileocolic vein/right colic vein, possibly perioperative in origin. No central filling defect is appreciated. Bilateral pleural effusions with adjacent compressive atelectasis. Indeterminate focus within the left kidney. Splenic cyst. Large left adrenal mass.
--- NOTE | ~2024-11-06 | XR_ITS ---
Upright portable view of the abdomen Clinical history: NG tube placement Findings: NG tube in satisfactory position. Dilated small bowel loops in the upper abdomen suggest sm all bowel obstruction. No free air seen. Osseous structures are intact. Impression: NG tube in satisfactory position, side port just below the diaphragm. Small bowel obstruction. Reviewed, dictated and finalized at [facility]. RT COORDINATION AND PRODUCTION HEAD Impression: NG tube in satisfactory position, side port just below the diaphragm. Small bowel obstruction.
--- NOTE | ~2024-11-06 | XR_ITS ---
Upright portable view of the abdomen Clinical history: NG tube placement Findings: NG tube in satisfactory position. Multiple dilated small bowel loops are compatible with sm all bowel obstruction. No free air evident. Osseous structures are intact. Impression: NG tube in satisfactory position. Small bowel obstruction. Reviewed, dictated and finalized at [facility]. RAISING ASSISTANT Impression: NG tube in satisfactory position. Small bowel obstruction.
--- NOTE | ~2024-11-06 | XR_ITS ---
Portable chest x-ray Comparison: 08/29/2024 Clinical History: Preoperative clearance Findings: 15 mm density in the medial right lung apex is present. No other pulmonary abnormality see n. Cardiomediastinal silhouette is stable. Bones and soft tissues are unremarkable. Impression: Possible 15 mm right apical pulmonary nodule versus confluence of shadows. Chest CT recommended to co nfirm or exclude pulmonary nodule. Reviewed, dictated and finalized at location [facility]. TER HELP Impression: Possible 15 mm right apical pulmonary nodule versus confluence of shadows. Ches t CT recommended to confirm or exclude pulmonary nodule.
--- NOTE | ~2024-11-06 | CT_ITS ---
CT Scan of the Chest without Contrast: Clinical Indication: Bronchiectasis Technique: Contiguous sections were acquired throughout the chest without intravenous contrast. Dose reduction technique was used on this scan by utilizing automated exposure control and iterative recon struction technique. The dose-length product (DLP) was 306.49 mGy-cm. COMPARISON: 11/06/2024 Findings: There is no evidence of any significant mediastinal, hilar or axillary lymphadenopathy. There are ext ensive atherosclerotic calcifications of the aorta and coronary arteries. No pericardial effusion. Moderate right pleural effusion and small left pleural effusion are present. There is extensive right lower lobe presumed atelectasis, versus possibly pneumonia. There is partial left basilar/left lower lobe atelectasis. There is mild emphysema. No definite bronchiectasis is seen.. Images through the upper abdomen reveal 4.8 x 4.0 cm heterogeneous left adrenal mass, similar to prio r exam. Stable splenic cyst. Probable extensive wall thickening of the stomach and proximal duodenum. Small amount of perihepatic ascites.. Impression: Moderate right pleural effusion and small left pleural effusion. Extensive presumed right lower lobe atelectasis versus possibly pneumonia. Partial left lower lobe atelectasis. Mild emphysema in the upper lobes. 4.8 x 4.0 cm heterogeneous left adrenal mass, similar to recent prior abdominal pelvic CT. Neoplastic /metastatic lesion is a consideration, versus acute adrenal hemorrhage/hematoma. Extensive wall thickening of the stomach and proximal duodenum. Correlate for infectious/inflammatory gastritis/duodenitis. Reviewed, dictated and finalized at [facility]. LEY LINEBACKER CREWMEMBER Impression: Moderate right pleural effusion and small left pleural effusion. Extensive pres umed right lower lobe atelectasis versus possibly pneumonia. Partial left lower lobe atelectasis. Mild emphysema in the upper lobes. 4.8 x 4.0 cm heterogeneous left adrenal mass, similar to recent prior abdominal pelvic CT. Neoplastic/metastatic lesion is a consideration, versus acute adren al hemorrhage/hematoma. Extensive wall thickening of the stomach and proximal duodenum. Correlate for i nfectious/inflammatory gastritis/duodenitis.
--- NOTE | ~2024-11-06 | US_ITS ---
EXAMINATION: US pelvic complete DATE: 11/11/2024 16:07 INDICATION: Distended endometrial cavity. TECHNIQUE: Multiple transabdominal sonographic images of the pelvis were obtained. COMPARISON: CT abdomen and pelvis 11/06/2024 FINDINGS: The uterus and ovaries are not visualized. IMPRESSION: 1. Uterus and ovaries not visualized on transabdominal imaging. The patient is confused and would not tolerate transvaginal imaging. Reviewed, dictated and finalized at location A. MINATION WORKER
--- NOTE | ~2024-11-06 | XR_ITS ---
EXAMINATION: XR barium swallow modified DATE: 11/11/2024 16:05 INDICATION: Dysphagia. TECHNIQUE: The patient was given barium-containing material of multiple consistencies to swallow by t he speech pathologist while I performed fluoroscopy. Fluoroscopy exposure time was 0.4 minutes. The n umber of fluoroscopy images saved to the PACS was 1. Dose-area product was 0.351 Gy-cm^2. FINDINGS: The oral stage, pharyngeal stage, and cervical/esophageal stage of the swallow are normal. IMPRESSION: 1. Normal modified barium swallow. 2. Please refer to the speech therapy report for recommendations. Reviewed, dictated and finalized at location A. OGLYCERIN SUPERVISOR
--- NOTE | ~2024-11-06 | CT_ITS ---
EXAMINATION: CT abdomen pelvis w con DATE: 11/06/2024 21:22 INDICATION: LLQ pain, n/v TECHNIQUE: Computed tomography (CT) of the abdomen and pelvis was performed with intravenous contrast . Automated exposure control and iterative reconstruction technique were employed. The dose-length pr oduct was 319.93 mGy-cm. COMPARISON: 01/23/2023, 11/03/2022. FINDINGS: Lower thorax: Right middle lobe and right lower lobe bronchiectasis and bronchial wall thickening. Gr oundglass and centrilobular nodular opacities adjacent to the area of bronchiectasis in the right low er lobe. Coronary artery and mitral calcifications. Liver: Normal. Biliary/Gallbladder: Gallbladder is absent. No bile duct dilation. Pancreas: No mass or duct dilation. Spleen: 3.1 cm peripherally calcified splenic cyst. Adrenals:Heterogeneously enhancing 5.1 cm left adrenal mass. Right adrenal nodularity. Kidneys: No hydronephrosis or obstructing calcification. 1.6 cm indeterminate density left upper pole lesion. Multiple bilateral subcentimeter hypodensities, too small to characterize. GI tract: Diffuse small bowel dilation, transition point at the entrance of an umbilical hernia which contains a loop of nondilated distal ileum. No large bowel dilation. Normal appendix. Diverticulosis without diverticulitis. Mesentery/Peritoneum: No ascites, mass, or free air. Retroperitoneum: No mass. Atherosclerotic abdominal aortic and/or arterial calcifications. Pelvis: Mild bladder wall edema. Fluid and gas within the endometrial cavity. Irregular hyperdensity within the endometrial fluid. Soft Tissues: 8.6 cm umbilical hernia containing fat and a loop of nondilated slightly hyperemic dist al ileum. Mild inflammatory changes within the hernia sac. Mild body wall edema. Bones: No acute osseous finding. IMPRESSION: Focal areas of right middle lobe and right lower lobe chronic infection, inflammation, or aspiration. 5.1 cm left adrenal mass, previously met criteria for adenoma but now demonstrating interval growth t hat could reflect interval hemorrhage within an adenoma or different cell type. Indeterminate density 1.6 cm right renal lesion, also with interval growth. Recommend nonemergent MR of the abdomen withou t contrast to evaluate these lesions. Small bowel obstruction with herniation of a loop of distal ileum into an umbilical hernia. Mild infl ammatory changes within the hernia sac. Fluid distended endometrial cavity with irregular intraluminal hyperdensity and gas, may represent en dometrial hemorrhage, infectious material, or less likely a polyp. Correlate with any history of rece nt gynecologic procedure. Consider endometritis in the differential and pelvic ultrasound for further evaluation. Possible cystitis, correlate with urinalysis. Reviewed, dictated and finalized at location K. ECRAFT TEACHER IMPRESSION: Focal areas of right middle lobe and right lower lobe chronic infection, inflam mation, or aspiration. 5.1 cm left adrenal mass, previously met criteria for adenoma but now demonstra ting interval growth that could reflect interval hemorrhage within an adenoma o r different cell type. Indeterminate density 1.6 cm right renal lesion, also wi th interval growth. Recommend nonemergent MR of the abdomen without contrast to evaluate these lesions. Small bowel obstruction with herniation of a loop of distal ileum into an umbil ical hernia. Mild inflammatory changes within the hernia sac. Fluid distended endometrial cavity with irregular intraluminal hyperdensity and gas, may represent endometrial hemorrhage, infectious material, or less likely a polyp. Correlate with any history of recent gynecologic procedure. Consider endometritis in the differential and pelvic ultrasound for further evaluation. Possible cystitis, correlate with urinalysis.
[2024-11-06] MEDS: ONDANSETRON INJ 4 MG/2 ML VIAL IV PUSH (20:35)
[2024-11-06] MEDS: SODIUM CHLORIDE 0.9% IV 2,000 ML 999 ML IV CONT (20:35)
[2024-11-06] MEDS: FAMOTIDINE 20 MG/2 ML VIAL IV PUSH (20:36)
[2024-11-06 20:41] LABS: Basophils Percent Auto 0.1 % (0.2-1.2); Eosinophils Percent Auto 0.1 % (0-4.4); Hematocrit 39.7 % (37.0-47.0); Hemoglobin 13.4 g/dL (12.0-15.0); Immature Granulocyte Absolute 0.06 K/mm3 (0.00-0.031); Immature Granulocyte Percent A 0.4 % (0-0.5); Lymphocytes Absolute Auto 1.02 K/mm3 (0.9-3.2); Mean Corpuscular HGB Conc 33.8 g/dl (32-36); Mean Corpuscular Hemoglobin 29.8 pg (26-34); Mean Corpuscular Volume 88.2 fl (80-100); Mean Platelet Volume 12.5 fl (7.4-10.4); Monocytes Absolute Auto 0.5 K/mm3 (0.1-0.6); Monocytes Percent Auto 3.2 % (2.6-8.5); Neutrophils Absolute Auto 13.1 K/mm3 (1.3-6.7); Neutrophils Percent Auto 89.2 % (45.5-73.1); Platelet Count Result 291 k/mm3 (150-375); Red Cell Distribution Width 16.5 % (11.5-14.5); White Blood Count 14.6 K/mm3 (4.5-10.0)
[2024-11-06 20:52] LABS: Alanine Aminotransferase 11 U/L (6-35); Alkaline Phosphatase 98 U/L (38-126); Anion Gap 7 mmol/L (4-12); Aspartate Amino Transferase 21 U/L (14-36); Bilirubin,Total 1.2 mg/dL (0.2-1.3); Blood Urea Nitrogen 70 mg/dL (7-17); Calcium 9.4 mg/dL (8.4-10.2); Carbon Dioxide 28 mmol/L (22-30); Chloride 106 mmol/L (98-107); Estimated Glomerular Filt Rate 21; Glucose 119 mg/dL (65-110); Lipase 84 U/L (23-300); Potassium 4.4 mmol/L (3.4-5.0); Sodium 141 mmol/L (137-145)
[2024-11-06 21:15] LABS: Influenza A QL RT-PCR Negative (Negative); Influenza B QL RT-PCR Negative (Negative); RSV RNA, RT-PCR. Negative (Negative); SARS-CoV-2 RNA PCR Negative (Negative)
--- NOTE | 2024-11-06 21:41 | ED_ITS ---
HPI - General Adult General Chief complaint: Abdominal Pain Stated complaint: vomiting X3 days Time Seen by Provider: 11/06/24 19:59 History of Present Illness HPI narrative: This is an 84-year-old female presenting with nausea and vomiting. Symptoms started 2 days ago. They are associated with a lower crampy abdominal pain. Patient denies any fevers chills, chest pain, difficulty breathing, urinary symptoms or diarrhea. Related Data Home Medications ?Medication ?Instructions ?Recorded ?Confirmed ?Last Taken ?Type levothyroxine 150 mcg tablet 150 mcg PO DAILY 08/31/23 08/29/24 Unknown History meclizine 25 mg tablet 25 mg PO Q8H PRN Dizziness 08/31/23 08/29/24 Unknown History melatonin 10 mg tablet 10 mg PO HS PRN Insomnia 08/31/23 08/29/24 Unknown History donepezil 5 mg tablet 5 mg PO DAILY 03/01/24 08/29/24 Unknown History Allergies Allergy/AdvReac Type Severity Reaction Status Date / Time Penicillins Allergy Severe Hives Verified 07/21/24 20:39 [facility] Past Medical History Medical History UTI (urinary tract infection) Right kidney mass Acute UTI JC (acute kidney injury) Chronic diarrhea Acute UTI Umbilical hernia Anxiety and depression COPD mixed type PVD (peripheral vascular disease) red legs s/p bermudez DVT (deep venous thrombosis) Gastroesophageal reflux disease Hypertension Small bowel obstruction Vitamin D deficiency UTI (urinary tract infection) Hypoxia Discharge planning issues Kidney stones Right kidney stone December 2018 Fall as cause of accidental injury in home as place of occurrence Rheumatoid arthritis Chronic venous stasis dermatitis Closed fracture of greater tuberosity of humerus Fracture of neck of humerus Hypothyroidism (acquired) Depression Hyperglycemia Surgical History Surgical History History of evacuation of hematoma Of lateral thigh 2014 Status post cataract extraction of both eyes with insertion of intraocular lens 2004 History of section X1 History of cholecystectomy Family History Family History Sibling Patient's sister is in good health Mother Diabetes mellitus, Onset Age: 41 Father Heart attack Cardiovascular disease Social History Social History Social History: Primary care physician: Dr. Henry Hinojosa Code status: DNR/DNI Medical POA: Fatemeh Pittman (daughter). Alternate surrogate decision maker: Rubens Stone, sales service professional. Smoking packs per day: 2 Smoking cigarettes per day: 40.0 Years smoked: 50 Smoking pack-years: 100.00 Smoking status: Never smoker Second hand tobacco smoke exposure: No Alcohol intake: never Substance use: never Substance use type: does not use Do You Feel Safe in your Home?: Yes Lack of Transportation: No Lack of Food: Never True Current Housing: I Have Housing Concerned About Future Housing: No Difficulty Paying Gas/Electric Bills: No Difficulty Paying for Meds: No Currently Unemployed: No Education: Grade School Difficulty w/ Childcare or Family Care: No Living arrangements: with friend(s) Additional living arrangements comments: lives with sales service professional/friend rubens Occupation/Education: retired 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 Spiritual care concerns: No Exam 2 Narrative: APPEARANCE: No apparent distress. Head: atraumatic. EYES: EOMI, NOSE: Atraumatic NECK: Trachea midline RESPIRATORY: No increased rate of breathing, CTAB CARDIOVASCULAR: RRR, ABDOMINAL: Soft nontender no guarding or rebound, incarcerated nonpainful umbilical hernia MUSCULOSKELETAl: No obvious deformities NEURO: Alert. Moving 4/4 extremities SKIN:: Warm, dry. Normal color PSYCHIATRIC: Normal affect Course Vital Signs Vital signs: Vital Signs Temperature 98.0 F 11/06/24 16:35 Pulse Rate 69 11/06/24 16:35 Respiratory Rate 16 11/06/24 16:35 Blood Pressure 179/86 H 11/06/24 16:35 Pulse Oximetry 95 11/06/24 16:35 Oxygen Delivery Room Air 11/06/24 16:35 Temperature 98.0 F 11/06/24 21:46 Pulse Rate 64 11/06/24 22:27 Respiratory Rate 14 11/06/24 21:46 Blood Pressure 155/93 H 11/06/24 22:27 Pulse Oximetry 97 11/06/24 21:46 Oxygen Delivery Room Air 11/06/24 16:35 Medical Decision Making MDM Narrative Medical decision making narrative: -Course: 84-year-old female with history chronic diarrhea and peptic ulcers presenting with nausea and vomiting.Patient has an incarcerated umbilical hernia on exam which she says is chronic. Hernia is firm but nonpainful. However her CT shows incarcerated hernia with a small-bowel obstruction. I was unable to reduce the hernia after multiple attempts. Surgery was consulted. Abx, fluids and ng tube ordered. the patient be admitted to the hospital. -DDX includes but is not limited to: small-bowel obstruction due to incarcerated hernia, gastroenteritis, peptic ulcer disease -Co-morbidities complicating care: chronic diarrhea, hypertension, dementia, hypothyroid -Independent interpretation of studies: white count 14.6. Creatinine 2.2 baseline 1.5 viral swabs negative Independent EKG interpretation: Rhythm [sinus], Rate [], [place] -[normal], MD -[normal], QRS [narrow], QTC [normal], T waves -[negative for concerning inversions], ST Segments - [Negative for concerning elevations] Final interpretations: [Normal Sinus Rhythm] -Discussion of Management/Consultants: Esdras Decker -Shared decision making / Disposition:admitted. Vital Signs Vital Signs: Vital Signs Temperature 98.0 F 11/06/24 16:35 Pulse Rate 69 11/06/24 16:35 Respiratory Rate 16 11/06/24 16:35 Blood Pressure 179/86 H 11/06/24 16:35 Pulse Oximetry 95 11/06/24 16:35 Oxygen Delivery Room Air 11/06/24 16:35 Temperature 98.0 F 11/06/24 21:46 Pulse Rate 64 11/06/24 22:27 Respiratory Rate 14 11/06/24 21:46 Blood Pressure 155/93 H 11/06/24 22:27 Pulse Oximetry 97 11/06/24 21:46 Oxygen Delivery Room Air 11/06/24 16:35 Lab Data 11/06/24 20:36 11/06/24 20:36 Labs: Lab Results 11/06/24 11/06/24 Range/Units 20:36 22:19 WBC 14.6 H (4.5-10.0) K/mm3 RBC 4.50 (4.2-5.4) M/mm3 Hgb 13.4 (12.0-15.0) g/dL Hct 39.7 (37.0-47.0) % MCV 88.2 (80-100) fl MCH 29.8 (26-34) pg MCHC 33.8 (32-36) g/dl RDW 16.5 H (11.5-14.5) % Plt Count 291 (150-375) k/mm3 MPV 12.5 H (7.4-10.4) fl Immature Gran % (Auto) 0.4 (0-0.5) % Neut % (Auto) 89.2 H (45.5-73.1) % Lymph % (Auto) 7.0 L (18.3-44.2) % [place] % (Auto) 3.2 (2.6-8.5) % Eos % (Auto) 0.1 (0-4.4) % Baso % (Auto) 0.1 L (0.2-1.2) % Lymph # (Auto) 1.02 (0.9-3.2) K/mm3 [place] # (Auto) 0.5 (0.1-0.6) K/mm3 Eos # (Auto) 0.0 (0-0.3) K/mm3 Baso # (Auto) 0.0 (0.0-0.1) K/mm3 Abs Immat Gran (auto) 0.06 H (0.00-0.031) K/mm3 Absolute Neuts (auto) 13.1 H (1.3-6.7) K/mm3 Absolute Nucleated RBC 0.000 (0.0-0.012) K/mm3 Nucleated RBC % 0.0 (0.0-0.2) % Sodium 141 (137-145) mmol/L Potassium 4.4 (3.4-5.0) mmol/L Chloride 106 (98-107) mmol/L Carbon Dioxide 28 (22-30) mmol/L Anion Gap 7 (4-12) mmol/L BUN 70 H D (7-17) mg/dL Creatinine 2.20 H (0.7-1.0) mg/dL Estim Creat Clear Calc Not Reportable Estimated GFR 21 L (59 - ) Glucose 119 H (65-110) mg/dL Calcium 9.4 (8.4-10.2) mg/dL Total Bilirubin 1.2 (0.2-1.3) mg/dL AST 21 (14-36) U/L ALT 11 (6-35) U/L Alkaline Phosphatase 98 (38-126) U/L Total Protein 8.0 (6.3-8.2) g/dL Albumin 4.0 (3.5-5.1) g/dL Lipase 84 (23-300) U/L Urine Color Pending Urine Appearance Pending Urine pH Pending Ur Specific [place] Pending Urine Protein Pending Urine Glucose (UA) Pending Urine Ketones Pending Ur Blood (Man) Pending Urine Nitrate Pending Urine Bilirubin Pending Urine Urobilinogen Pending Leukocyte Esterase Rfl Pending Influenza A (RT-PCR) Negative (Negative) Influenza B (RT-PCR) Negative (Negative) RSV (RT-PCR) Negative (Negative) SARS-CoV-2 RNA (RT-PCR) Negative (Negative) Discharge Plan Discharge Clinical Impression: SBO (small bowel obstruction), Hernia, umbilical Patient Disposition: Still a Patient Condition: Stable Patient Language: Sammarinese Prescriptions: No Action meclizine 25 mg tablet 25 mg PO Q8H PRN (Reason: Dizziness) Rx Instructions: TAKE 1 TABLET BY MOUTH THREE TIMES DAILY NEEDED FOR DIZZINESS levothyroxine 150 mcg tablet 150 mcg PO DAILY Rx Instructions: Take 1 tablet by mouth once daily melatonin 10 mg Tablet 10 mg PO HS PRN (Reason: Insomnia) loperamide 2 mg Capsule 2 mg PO .q2hr MDD 16mg/day PRN (Reason: Diarrhea) Qty: 90 1RF donepezil 5 mg tablet 5 mg PO DAILY amlodipine 2.5 mg Tablet 2.5 mg PO QAM Qty: 90 0RF pantoprazole 40 mg tablet,delayed release (DR/EC) 40 mg PO BID 30 Days Qty: 180 3RF Follow-up/Referrals: Henry Hinojosa MD [Primary Care Provider] -
--- NOTE | 2024-11-06 22:52 | ECG_ITS ---
Test Date: 2024-11-06 23:42:30 Measurements Intervals [place] Rate: 53 P: 87 ID: [id number] QRS: -33 QRSD: 146 T: 20 QT: 495 QTc: 466 Interpretive Statements SINUS BRADYCARDIA MARKED LEFT AXIS DEVIATION [QRS AXIS < -30] RIGHT BUNDLE BRANCH BLOCK [120+ ms QRS DURATION, UPRIGHT V1, 40+ ms S IN I/aVL/V4/V5/V6] POSSIBLE SEPTAL MYOCARDIAL INFARCTION , OF INDETERMINATE AGE [30 ms Q WAVE IN V1/V2] Compared to ECG 08/29/2024 17:50:00 Myocardial infarct finding now present Electronically Signed On 11-11-2024 10:27:55 PLASTIC TILE LAYER by Vincent Douglass M.D.
[2024-11-06 23:12] LABS: Lactic Acid Reflex 1.3 mmol/L (0.7-2.0)
[2024-11-06 23:14] LABS: Add Urine Microscopic? YES; Appearance Urine Clear (Clear); Bacteria Urine 4+ /hpf; Bilirubin Urine Negative (Negative); Blood Urine Negative (Negative); Color Urine Yellow (Yellow); Glucose Urine UA Negative (Negative); Ketones Urine Trace mg/dL (Negative); Leukocyte Esterase Ur Trace LEU/UL (Negative); Need Manual Microscopic Reviewed; Nitrate Urine Positive (Negative); Protein Urine 1+ mg/dL (Negative); RBC Urine 0-2 /hpf (0-2); Specific Grav Ur 1.031 (1.001-1.035); Squamous Epithelial Cell Urine None Seen /hpf (Few); pH Urine 8.5 (5.0-9.0)
--- NOTE | 2024-11-06 23:30 | PC.NURSE ---
Assumed care of patient after receiving report from REBECA Au. @[phone]
[2024-11-07] VITALS (13 sets, daily range): BP systolic 158–193; BP diastolic 66–97; PULSE 52–99; RESP 15–30; TEMP 36.6–37.6; O2SAT 91–100; BMI 23.8
--- NOTE | 2024-11-07 00:07 | PC.NURSE ---
NG tube placed by this RN & REBECA Fontana. 16french. 55 @ the nose. Well tolerated by pt. Awaiting approval of KUJake from [place] [facility].
[2024-11-07] MEDS: metroNIDAZOLE 500 MG/ISO 100ML 500 MG/100 ML BAG 100 MG IVPB ×2 (00:51→05:01)
--- NOTE | 2024-11-07 01:15 | PC.NURSE ---
NG tube inserted to 60 @ the lip. KUB ordered. Waiting for EDP approval. Report called to REBECA Boss @ 0113. Pt to be taken to floor after approval.
--- NOTE | 2024-11-07 02:18 | ADMGEN ---
This patient, Arielle Pittman, was admitted to [facility] Room 306-02. Patient/family oriented to hospital policies and general routines including ID bracelet, bed and alarms, visiting hours, pain management, procedures, bathroom and other care routines, personal items, smoking policy, room service/diet, and visiting hours. Information on how to activate the Rapid Response Team has been discussed. Patient/Family are encouraged to report perceived risks to care and to ask questions if they do not understand what they are told or what they should do.
[2024-11-07] MEDS: LACTATED RINGERS 1,000 ML 100 ML IV CONT ×2 (02:36→18:39)
--- NOTE | 2024-11-07 06:55 | PM.IMHP ---
H&P: HPI History of Present Illness Date/Time: 11/07/24 06:55 Chief Complaint: Abdominal pain Narrative: 84yo female with RA, HTN PVD, COPD, hx of DVT and SBO here for abdominal pain. She has a hx of cholecystectomy and . Patient with 2 day hx of nausea and vomiting of brownish emesis. No hematemesis. Could not tolerate oral intake. No BMs or flatus. +GERD symptoms. Abd pain LLQ area described as crampy. Has known hx of umbilical hernia but was deemed in the past to be too high of a risk for repair. No fever, chills, CP, SOB, cough, dysuria, hematuira, vaginal bleeding, odnyphagia or dysphagia. She has had weight loss but can not quantify. She presented tot he ED for further evaluation. In the ED, patient was hemodynamically stable. No fevers, hypoxia or tachycardia. WBC 14.6 with normal Hgb and plt count. BUN 70 and Cr 2.2 with baseline Cr 1.3-1.6 over the past year. LFTs and lipase normal. Lactic 1.3. UA is concerning for UTI. Influenza, RSV and COVID PCR negative. EKG showing sinus bradycardia (53), marked LAD, Rt BBB and possible old septal IN on preliminary reading but no change when compared to older EKG. CT Abd/Pelvis showing 5.1cm left adrenal mass that could reflect hemorrhage, SBO with herniation of a loop of distal ileum into an umbilical hernia with mild inflammatory changes within hernia sac, fluid distended endometrial cavity and possible cystitis. Urine culture collected. She was treated with Zofran, Pepcid, IVF, Rocephin and Flagyl. NGT was inserted to LWIS. General surgery was consulted. Patient was admitted for further care. Review of Systems Review of Systems: All systems reviewed & are unremarkable except as noted in HPI and below [facility] Past Medical History Medical History UTI (urinary tract infection) Right kidney mass Acute UTI JC (acute kidney injury) Chronic diarrhea Acute UTI Umbilical hernia Anxiety and depression COPD mixed type PVD (peripheral vascular disease) red legs s/p bermudez DVT (deep venous thrombosis) Gastroesophageal reflux disease Hypertension Small bowel obstruction Vitamin D deficiency UTI (urinary tract infection) Hypoxia Discharge planning issues Kidney stones Right kidney stone December 2018 Fall as cause of accidental injury in home as place of occurrence Rheumatoid arthritis Chronic venous stasis dermatitis Closed fracture of greater tuberosity of humerus Fracture of neck of humerus Hypothyroidism (acquired) Depression Hyperglycemia Surgical History Surgical History History of evacuation of hematoma Of lateral thigh 2013 Status post cataract extraction of both eyes with insertion of intraocular lens 2004 History of section X1 History of cholecystectomy Family History Family History Sibling Patient's sister is in good health Mother Diabetes mellitus, Onset Age: 41 Father Heart attack Cardiovascular disease Social History Social History (Updated 11/07/24 @ 09:53 by Robles Paige MD) Social History: No alcohol or drug use. Ex-smoker. Primary care physician: Dr. Henry Hinojosa Code status: DNR/DNI Medical POA: Fatemeh Pittman (daughter). Alternate surrogate decision maker: Rubens Stone, patented hogshead assembler. Smoking packs per day: 2 Smoking cigarettes per day: 40.0 Years smoked: 50 Smoking pack-years: 100.00 Smoking status: Former smoker Second hand tobacco smoke exposure: No Alcohol intake: never Substance use: never Substance use type: does not use Do You Feel Safe in your Home?: Yes Lack of Transportation: No Lack of Food: Never True Current Housing: I Have Housing Concerned About Future Housing: No Difficulty Paying Gas/Electric Bills: No Difficulty Paying for Meds: No Currently Unemployed: No Education: Grade School Difficulty w/ Childcare or Family Care: No Living arrangements: with friend(s) Additional living arrangements comments: lives with patented hogshead assembler/friend rubens Occupation/Education: retired 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 Spiritual care concerns: No Meds Home Medications and Allergies Home Medications ?Medication ?Instructions ?Recorded ?Confirmed ?Type pantoprazole 40 mg tablet,delayed 40 mg PO BID 30 days #180 tabs 04/12/23 11/07/24 Rx release levothyroxine 150 mcg tablet 150 mcg PO DAILY 08/31/23 11/07/24 History meclizine 25 mg tablet 25 mg PO Q8H PRN Dizziness 08/31/23 11/07/24 History melatonin 10 mg tablet 10 mg PO HS PRN Insomnia 08/31/23 11/07/24 History donepezil 5 mg tablet 10 mg PO DAILY 03/01/24 11/07/24 History atorvastatin 20 mg tablet 20 mg PO QPM 11/07/24 11/07/24 History losartan 50 mg tablet 50 mg PO QHS 11/07/24 11/07/24 History Allergies Allergy/AdvReac Type Severity Reaction Status Date / Time Penicillins Allergy Severe Hives Verified 07/21/24 20:39 Vital Signs Vital Signs - 24 hr 11/06/24 16:35 11/06/24 21:46 11/06/24 21:57 Temperature 98.0 F 98.0 F Pulse Rate 69 58 L 57 L Respiratory Rate 16 14 Blood Pressure 179/86 H 183/74 H 183/76 H Pulse Oximetry 95 97 Oxygen Delivery Room Air 11/06/24 22:00 11/06/24 22:16 11/06/24 22:19 Temperature Pulse Rate 57 L 56 L 59 L Respiratory Rate Blood Pressure 188/86 H 177/81 H 187/83 H Pulse Oximetry Oxygen Delivery 11/06/24 22:27 11/06/24 23:35 11/06/24 23:56 Temperature 98.0 F Pulse Rate 64 55 L 60 Respiratory Rate 18 19 Blood Pressure 155/93 H 182/80 H 185/79 H Pulse Oximetry 98 96 Oxygen Delivery 11/07/24 01:13 11/07/24 01:32 11/07/24 02:41 Temperature 98.7 F Pulse Rate 60 52 L 60 Respiratory Rate 17 18 17 Blood Pressure 164/97 H 172/72 H Pulse Oximetry 98 97 98 Oxygen Delivery Room Air 11/07/24 06:00 Temperature 98.3 F Pulse Rate 54 L Respiratory Rate 18 Blood Pressure 185/75 H Pulse Oximetry 94 Oxygen Delivery Exam Narrative: AF 98.3 185/75 54 18 94% ra Gen - well appearing female in no acute respiratory distress who is nontoxic-appearing lying semi recumbent in bed HEENT - normocephalic. Atraumatic. Pupils equal round and reactive. Extraocular motions intact. Sclera clear and anicteric. Nares patent. Oropharynx was not visualized. No oral lesions. Moist mucous membranes. Tongue was midline. Palate [place] symmetrically. No facial asymmetry. Neck - neck was supple. No dominant adenopathy, thyromegaly or masses. Chest - lungs are clear to auscultation anteriorly and in the flanks. No wheezes or crackles. Breast exam was deferred. CV - heart was regular rate and rhythm. S1-S2. No murmurs gallops or rubs. Abd - soft. tender, firm mass umbilical region c/w incarcerated umbilical hernia. Ext - no clubbing, cyanosis or edema. 2+ DP pulses bilaterally. Neuro - patient is alert and oriented x4. Strength is 5-/5 in both upper and lower extremities. Cranial nerves 2-12 are intact. Speech is clear. Psych - normal mood and affect. Skin - warm and dry. H&P: Results Labs Labs: Short CBC 11/06/24 Range/Units 20:36 WBC 14.6 H (4.5-10.0) K/mm3 Hgb 13.4 (12.0-15.0) g/dL Hct 39.7 (37.0-47.0) % Plt Count 291 (150-375) k/mm3 BMP 11/06/24 20:36 Sodium 141 Potassium 4.4 Chloride 106 Carbon Dioxide 28 BUN 70 H D Creatinine 2.20 H Glucose 119 H Calcium 9.4 Liver Function 11/06/24 Range/Units 20:36 Total Bilirubin 1.2 (0.2-1.3) mg/dL AST 21 (14-36) U/L ALT 11 (6-35) U/L Alkaline Phosphatase 98 (38-126) U/L Albumin 4.0 (3.5-5.1) g/dL Urine 11/06/24 Range/Units 22:19 Urine Color Yellow (Yellow) Urine Appearance Clear (Clear) Urine pH 8.5 (5.0-9.0) Ur Specific [place] 1.031 (1.001-1.035) Urine Protein 1+ H (Negative) mg/dL Urine Glucose (UA) Negative (Negative) mg/dL Assessment and Plan Assessment and plan (1) SBO (small bowel obstruction): Code(s): K56.609 - Unspecified intestinal obstruction, unspecified as to partial versus complete obstruction Status: Acute Assessment and Plan: Patient presents with abdominal pain and found to have SBO from incarcerated umbilical hernia. CT Abd showing diffuse small bowel dilation, transition point at the entrance of an umbilical hernia which contains a loop of nondilated distal ileum. No large bowel dilation. Normal appendix. Diverticulosis without diverticulitis. NGT placed. Repeat imaging showing SBO. lactic normal. General surgery consulted and discussed. Plan for surgical repair later today (2) Incarcerated umbilical hernia: Code(s): K42.0 - Umbilical hernia with obstruction, without gangrene Status: Acute Assessment and Plan: As above. (3) Fspfw-ow-ecsiprd kidney injury: Code(s): N17.9 - Acute kidney failure, unspecified; N18.9 - Chronic kidney disease, unspecified Status: Acute Assessment and Plan: BUN 70 and Cr 2.2 on admission. Baseline Cr 1.3-1.6 over the past year. CT scan with conrast showing no hydronephrosis or obstructing calcification; 1.6 cm indeterminate density left upper pole lesion (measured 1.5cm in January 2023); multiple bilateral subcentimeter renal hypodensities, too small to characterize; mild bladder wall edema possibly cystitis. UA consistent with UTI. Suspect dehydration and/or ATN and/or from infection causing the JC Cr better with IV fluids. Follow and monitor UOP, electrolytes and renal fxn (4) Abnormal CT of the abdomen: Code(s): R93.5 - Abnormal findings on diagnostic imaging of other abdominal regions, including retroperitoneum Status: Acute Assessment and Plan: CXR showing possibly 15mm right apical pulm nodule. CT abd/pelvis showing RML and RLL bronchiectasis and bronchial wall thickening. Ground glass and centrilobular nodular opacities adjacent to the area of bronchiectasis in the right lower lobe. Influenza, RSV and COVID PCR negative. Also with left adrenal mass at 5.1cm that has grown since January 2023 but not by much. Also noted with fluid distended endometrial cavity with irregular intraluminal hyperdensity and gas, may represent endometrial hemorrhage, infectious material, or less likely a polyp. Patient will need CT chest and pevic US once acute problem is addressed. (5) UTI (urinary tract infection): Qualifiers: Hematuria presence: with hematuria Urinary tract infection type: acute cystitis Qualified Code(s): N30.01 - Acute cystitis with hematuria Code(s): N39.0 - Urinary tract infection, site not specified Status: Acute Assessment and Plan: UA is consistent with UTI. UCx collected. Rocephin started. Prior UTIs are normally august-sensitive. UCx pending. Follow up on UCx results. (6) HTN (hypertension): Qualifiers: Hypertension type: essential hypertension Qualified Code(s): I10 - Essential (primary) hypertension Code(s): I10 - Essential (primary) hypertension Status: Acute Assessment and Plan: Patient's blood pressure was reviewed this admission. Blood pressure remains elevated probably related to being off her anti0-HTN meds and pain. She takes losartan 50mg daily only. Will add IV hydralazine scheduled since may be NPO for awhile. Plan Hypothyroidism - change levothyroxine to IV DVT prophylaxis - SCDs Code status - DNR
[2024-11-07 06:56] LABS: Glucose Point of Care 84 mg/dl (65-105)
[2024-11-07 08:42] LABS: Hematocrit 34.7 % (37.0-47.0); Hemoglobin 11.6 g/dL (12.0-15.0); Mean Corpuscular HGB Conc 33.4 g/dl (32-36); Mean Corpuscular Hemoglobin 30.2 pg (26-34); Mean Corpuscular Volume 90.4 fl (80-100); Mean Platelet Volume 12.6 fl (7.4-10.4); Platelet Count Result 232 k/mm3 (150-375); Red Blood Count 3.84 M/mm3 (4.2-5.4); Red Cell Distribution Width 16.7 % (11.5-14.5); White Blood Count 13.3 K/mm3 (4.5-10.0)
[2024-11-07 09:04] LABS: INR 1.1; Prothrombin Time 14.6 Seconds (11.1-14.7)
[2024-11-07 09:12] LABS: Anion Gap 6 mmol/L (4-12); Blood Urea Nitrogen 56 mg/dL (7-17); Calcium 8.4 mg/dL (8.4-10.2); Carbon Dioxide 23 mmol/L (22-30); Chloride 111 mmol/L (98-107); Estimated CRCL calculation 16 ml/min; Estimated Glomerular Filt Rate 27; Glucose 85 mg/dL (65-110); Potassium 3.8 mmol/L (3.4-5.0); Sodium 140 mmol/L (137-145)
--- NOTE | 2024-11-07 09:44 | PM.CNGS ---
Assessment and Plan Assessment and plan (1) Incarcerated umbilical hernia: Code(s): K42.0 - Umbilical hernia with obstruction, without gangrene Status: Acute Assessment and Plan: CT scan shows a loop of distal ileum within an umbilical hernia which appears to be causing a small bowel obstruction. This is at least her second admission with a small bowel obstruction associated with her umbilical hernia, which has been present for many years. She is not having any abdominal pain or findings on exam that suggest bowel ischemia, although strangulation remains a concern. Lactic acid normal. I was unable to reduce her umbilical hernia at the bedside this morning. Discussed the case with Dr. Decker, who has spoke with the patient regarding surgery. We would recommend proceeding with open repair of incarcerated umbilical hernia, possible small bowel resection. Description of the procedure, risks, benefits, alternatives, and expected recovery were discussed with the patient. She agrees to proceed. Continue NG tube decompression, bowel rest, and IV fluids pre-operatively. She is currently on IV Ceftriaxone and metronidazole. (2) SBO (small bowel obstruction): Code(s): K56.609 - Unspecified intestinal obstruction, unspecified as to partial versus complete obstruction Status: Acute Assessment and Plan: Secondary to incarcerated umbilical hernia. See plan above. Continue NG tube decompression, bowel rest, and IV fluids. (3) Chronic obstructive pulmonary disease with hypoxia: Code(s): J44.9 - Chronic obstructive pulmonary disease, unspecified; R09.02 - Hypoxemia Status: Acute Assessment and Plan: Hx of COPD, not on any chronic O2 therapy. Former smoker. Doesn't appear to have any acute issues. (4) HTN (hypertension): Qualifiers: Hypertension type: essential hypertension Qualified Code(s): I10 - Essential (primary) hypertension Code(s): I10 - Essential (primary) hypertension Status: Acute (5) JC (acute kidney injury): Code(s): N17.9 - Acute kidney failure, unspecified Status: Acute Assessment and Plan: Acute on chronic renal failure. Continue IV fluids as patient is NPO, trend labs. (6) Gastroesophageal reflux disease: Code(s): K21.9 - Gastro-esophageal reflux disease without esophagitis Status: Acute (7) Hypothyroidism (acquired): Code(s): E03.9 - Hypothyroidism, unspecified Status: Chronic Plan I have discussed the patient's case and plan of care with Dr. Decker. Thank you for allowing us to see the patient in consultation and we will continue to follow along with you. History of Present Illness Consult details Consult date: 11/07/24 Reason for consult: other (Umbilical hernia with small bowel obstruction) Requesting physician: Moses Steiner MD Narrative: This is an 84-year-old woman with PMH of COPD, hypertension, hypothyroidism, GERD, and PVD, who we are asked to see in surgical consultation for small bowel obstruction with an umbilical hernia. She presented to the ER with nausea and vomiting x 2 days that appeared to be brown emesis. She denies recalling ever having any abdominal pain. No flatus or BMs. She has a long-standing history of an umbilical hernia that she reports has been present since giving to her daughter over 50 years ago. She denies ever having issues with the hernia. No abdominal pain associated with this. It does appear she was admitted for a small bowel obstruction secondary to her umbilical hernia in 2021. Her SBO resolved after the hernia was reduced and surgery was deferred at that time. In the ED, she was hemodynamically stable. Labs showed a WBC count 14.6, BUN 70, creatinine 2.2 with baseline creatinine 1.3-1.6 over the past year. Lactic 1.3. UA is concerning for UTI. CT scan of the abdomen and pelvis showed a SBO with herniation of a loop of distal ileum into an umbilical hernia with mild inflammatory changes within the hernia sac, 5.1cm left adrenal mass that could reflect hemorrhage, fluid distended endometrial cavity and possible cystitis. She was admitted to the Hospitalist and an NG tube was placed. She denies flatus or BM this morning. She is on IV antibiotics. She denies abdominal pain at the time of my exam. Previous abdominal surgery includes a laparoscopic cholecystectomy and . Review of Systems Review of Systems: All systems reviewed & are unremarkable except as noted in HPI and below PMFSH Past Medical History Medical History UTI (urinary tract infection) Right kidney mass Acute UTI JC (acute kidney injury) Chronic diarrhea Acute UTI Umbilical hernia Anxiety and depression COPD mixed type PVD (peripheral vascular disease) red legs s/p bermudez DVT (deep venous thrombosis) Gastroesophageal reflux disease Hypertension Small bowel obstruction Vitamin D deficiency UTI (urinary tract infection) Hypoxia Discharge planning issues Kidney stones Right kidney stone December 2018 Fall as cause of accidental injury in home as place of occurrence Rheumatoid arthritis Chronic venous stasis dermatitis Closed fracture of greater tuberosity of humerus Fracture of neck of humerus Hypothyroidism (acquired) Depression Hyperglycemia Surgical History Surgical History History of evacuation of hematoma Of lateral thigh 2014 Status post cataract extraction of both eyes with insertion of intraocular lens 2004 History of section X1 History of cholecystectomy Family History Family History Sibling Patient's sister is in good health Mother Diabetes mellitus, Onset Age: 41 Father Heart attack Cardiovascular disease Social History Social History Social History: No alcohol or drug use. Ex-smoker. Primary care physician: Dr. Henry Hinojosa Code status: DNR/DNI Medical POA: Fatemeh Pittman (daughter). Alternate surrogate decision maker: Rubens Stone, catalogue librarian. Smoking packs per day: 2 Smoking cigarettes per day: 40.0 Years smoked: 50 Smoking pack-years: 100.00 Smoking status: Former smoker Second hand tobacco smoke exposure: No Alcohol intake: never Substance use: never Substance use type: does not use Do You Feel Safe in your Home?: Yes Lack of Transportation: No Lack of Food: Never True Current Housing: I Have Housing Concerned About Future Housing: No Difficulty Paying Gas/Electric Bills: No Difficulty Paying for Meds: No Currently Unemployed: No Education: Grade School Difficulty w/ Childcare or Family Care: No Living arrangements: with friend(s) Additional living arrangements comments: lives with catalogue librarian/friend rubens Occupation/Education: retired 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 Spiritual care concerns: No Meds Home Medications and Allergies Home Medications ?Medication ?Instructions ?Recorded ?Confirmed ?Type pantoprazole 40 mg tablet,delayed 40 mg PO BID 30 days #180 tabs 04/12/23 11/07/24 Rx release levothyroxine 150 mcg tablet 150 mcg PO DAILY 08/31/23 11/07/24 History meclizine 25 mg tablet 25 mg PO Q8H PRN Dizziness 08/31/23 11/07/24 History melatonin 10 mg tablet 10 mg PO HS PRN Insomnia 08/31/23 11/07/24 History donepezil 5 mg tablet 10 mg PO DAILY 03/01/24 11/07/24 History atorvastatin 20 mg tablet 20 mg PO QPM 11/07/24 11/07/24 History losartan 50 mg tablet 50 mg PO QHS 11/07/24 11/07/24 History Allergies Allergy/AdvReac Type Severity Reaction Status Date / Time Penicillins Allergy Severe Hives Verified 07/21/24 20:39 Vital Signs Vital Signs - 24 hr 11/06/24 16:35 11/06/24 21:46 11/06/24 21:57 Temperature 98.0 F 98.0 F Pulse Rate 69 58 L 57 L Respiratory Rate 16 14 Blood Pressure 179/86 H 183/74 H 183/76 H Pulse Oximetry 95 97 Oxygen Delivery Room Air 11/06/24 22:00 11/06/24 22:16 11/06/24 22:19 Temperature Pulse Rate 57 L 56 L 59 L Respiratory Rate Blood Pressure 188/86 H 177/81 H 187/83 H Pulse Oximetry Oxygen Delivery 11/06/24 22:27 11/06/24 23:35 11/06/24 23:56 Temperature 98.0 F Pulse Rate 64 55 L 60 Respiratory Rate 18 19 Blood Pressure 155/93 H 182/80 H 185/79 H Pulse Oximetry 98 96 Oxygen Delivery 11/07/24 01:13 11/07/24 01:32 11/07/24 02:41 Temperature 98.7 F Pulse Rate 60 52 L 60 Respiratory Rate 17 18 17 Blood Pressure 164/97 H 172/72 H Pulse Oximetry 98 97 98 Oxygen Delivery Room Air 11/07/24 06:00 Temperature 98.3 F Pulse Rate 54 L Respiratory Rate 18 Blood Pressure 185/75 H Pulse Oximetry 94 Oxygen Delivery Exam Const: General: comfortable and no acute distress Nutritional Appearance: average body habitus Orientation/consciousness: patient oriented x3 HENMT: Head: normocephalic and atraumatic Ears: hearing grossly normal bilaterally Mouth: Yes moist mucous membranes Eyes: General: appearance normal, both eyes and all related structures Pupils: Equal, round and reactive pupils present Neck: Neck: normal visual inspection and full ROM Resp: Effort & Inspection: no respiratory distress Auscultation: clear to auscultation bilaterally Cardio: Rate: bradycardic Rhythm: regular rhythm Peripheral pulses: Peripheral pulses 2+ throughout GI: Inspection: no scars (no large scars), visible herniation (umbilical) and other (mildly distended) GI Palp: Yes Soft to palpation, No Tenderness to palpation present (GI), No Guarding due to palpation present (GI), Yes No hepatosplenomegaly present and No Rebound tenderness present Auscultation: Hypoactive bowel sounds present Other: Large incarcerated umbilical hernia with some erythema deep in the umbilicus. Attempted to reduce with gentle manual pressure and was only able to partially reduce. No pain or tenderness while attempting reduction. Skin: General skin exam: normal color Neuro: General: moves all extremities and no focal motor deficits Speech: normal speech Motor exam (neuro): 5/5 motor strength present throughout Extrem: General: normal to inspection and no edema Psych: Mental Status: mental status grossly normal Attitude: cooperative Insight: Good insight present (Psych) Judgement: Good judgement present (Psych) Results Labs 11/07/24 08:11 11/07/24 08:43 Labs: Abnormal lab results 11/06/24 11/06/24 11/07/24 Range/Units 20:36 22:19 08:11 WBC 14.6 H 13.3 H (4.5-10.0) K/mm3 RBC 3.84 L (4.2-5.4) M/mm3 Hgb 11.6 L (12.0-15.0) g/dL Hct 34.7 L (37.0-47.0) % RDW 16.5 H 16.7 H (11.5-14.5) % MPV 12.5 H 12.6 H (7.4-10.4) fl Neut % (Auto) 89.2 H (45.5-73.1) % Lymph % (Auto) 7.0 L (18.3-44.2) % Baso % (Auto) 0.1 L (0.2-1.2) % Abs Immat Gran (auto) 0.06 H (0.00-0.031) K/mm3 Absolute Neuts (auto) 13.1 H (1.3-6.7) K/mm3 Chloride (98-107) mmol/L BUN 70 H D (7-17) mg/dL Creatinine 2.20 H (0.7-1.0) mg/dL Estimated GFR 21 L (59 - ) Glucose 119 H (65-110) mg/dL Urine Protein 1+ H (Negative) mg/dL Urine Ketones Trace H (Negative) mg/dL Urine Nitrate Positive H (Negative) Leukocyte Esterase Rfl Trace H (Negative) ANNY/UL Urine WBC 6-10 H (0-3) /hpf 11/07/24 Range/Units 08:43 WBC (4.5-10.0) K/mm3 RBC (4.2-5.4) M/mm3 Hgb (12.0-15.0) g/dL Hct (37.0-47.0) % RDW (11.5-14.5) % MPV (7.4-10.4) fl Neut % (Auto) (45.5-73.1) % Lymph % (Auto) (18.3-44.2) % Baso % (Auto) (0.2-1.2) % Abs Immat Gran (auto) (0.00-0.031) K/mm3 Absolute Neuts (auto) (1.3-6.7) K/mm3 Chloride 111 H (98-107) mmol/L BUN 56 H D (7-17) mg/dL Creatinine 1.80 H (0.7-1.0) mg/dL Estimated GFR 27 L (59 - ) Glucose (65-110) mg/dL Urine Protein (Negative) mg/dL Urine Ketones (Negative) mg/dL Urine Nitrate (Negative) Leukocyte Esterase Rfl (Negative) ANNY/UL Urine WBC (0-3) /hpf Diabetes panel 11/06/24 11/07/24 Range/Units 20:36 08:43 Sodium 141 140 (137-145) mmol/L Potassium 4.4 3.8 (3.4-5.0) mmol/L Chloride 106 111 H (98-107) mmol/L Carbon Dioxide 28 23 (22-30) mmol/L BUN 70 H D 56 H D (7-17) mg/dL Creatinine 2.20 H 1.80 H (0.7-1.0) mg/dL Glucose 119 H 85 (65-110) mg/dL Calcium 9.4 8.4 (8.4-10.2) mg/dL AST 21 (14-36) U/L ALT 11 (6-35) U/L Alkaline Phosphatase 98 (38-126) U/L Total Protein 8.0 (6.3-8.2) g/dL Albumin 4.0 (3.5-5.1) g/dL Calcium panel 11/06/24 11/07/24 Range/Units 20:36 08:43 Calcium 9.4 8.4 (8.4-10.2) mg/dL Albumin 4.0 (3.5-5.1) g/dL Pituitary panel 11/06/24 11/07/24 Range/Units 20:36 08:43 Sodium 141 140 (137-145) mmol/L Potassium 4.4 3.8 (3.4-5.0) mmol/L Chloride 106 111 H (98-107) mmol/L Carbon Dioxide 28 23 (22-30) mmol/L BUN 70 H D 56 H D (7-17) mg/dL Creatinine 2.20 H 1.80 H (0.7-1.0) mg/dL Glucose 119 H 85 (65-110) mg/dL Calcium 9.4 8.4 (8.4-10.2) mg/dL Adrenal panel 11/06/24 11/07/24 Range/Units 20:36 08:43 Sodium 141 140 (137-145) mmol/L Potassium 4.4 3.8 (3.4-5.0) mmol/L Chloride 106 111 H (98-107) mmol/L Carbon Dioxide 28 23 (22-30) mmol/L BUN 70 H D 56 H D (7-17) mg/dL Creatinine 2.20 H 1.80 H (0.7-1.0) mg/dL Glucose 119 H 85 (65-110) mg/dL Calcium 9.4 8.4 (8.4-10.2) mg/dL Total Bilirubin 1.2 (0.2-1.3) mg/dL AST 21 (14-36) U/L ALT 11 (6-35) U/L Alkaline Phosphatase 98 (38-126) U/L Total Protein 8.0 (6.3-8.2) g/dL Albumin 4.0 (3.5-5.1) g/dL All other labs normal. Imaging Additional studies: ITS Impressions Abdomen/Pelvis CT 11/06/24 21:22 IMPRESSION: Focal areas of right middle lobe and right lower lobe chronic infection, inflammation, or aspiration. 5.1 cm left adrenal mass, previously met criteria for adenoma but now demonstrating interval growth that could reflect interval hemorrhage within an adenoma or different cell type. Indeterminate density 1.6 cm right renal lesion, also with interval growth. Recommend nonemergent MR of the abdomen without contrast to evaluate these lesions. Small bowel obstruction with herniation of a loop of distal ileum into an umbilical hernia. Mild inflammatory changes within the hernia sac. Fluid distended endometrial cavity with irregular intraluminal hyperdensity and gas, may represent endometrial hemorrhage, infectious material, or less likely a polyp. Correlate with any history of recent gynecologic procedure. Consider endometritis in the differential and pelvic ultrasound for further evaluation. Possible cystitis, correlate with urinalysis. Chest X-Ray 11/07/24 05:18 Impression: Possible 15 mm right apical pulmonary nodule versus confluence of shadows. Chest CT recommended to confirm or exclude pulmonary nodule. Abdomen X-Ray 11/07/24 05:22 Impression: NG tube in satisfactory position, side port just below the diaphragm. Small bowel obstruction. Abdomen X-Ray 11/07/24 05:24 Impression: NG tube in satisfactory position. Small bowel obstruction.
[2024-11-07] MEDS: PANTOPRAZOLE SODIUM IV 40 MG VIAL IV PUSH (11:00)
[2024-11-07] MEDS: hydrALAZINE HCL 20 MG/ML VIAL 10 MG IV PUSH ×2 (11:06→18:40)
[2024-11-07] MEDS: LEVOTHYROXINE SODIUM INJ 100 MCG/5 ML VIAL 75 MCG IV PUSH (11:08)
[2024-11-07 11:53] LABS: Glucose Point of Care 78 mg/dl (65-105)
--- NOTE | 2024-11-07 12:37 | WPDHPUPDATE1 ---
History and Physical Update Update Date/Time: 11/07/24 12:37 History and Physical has been reviewed, including an updated exam of the patient. There are NO changes in the patient's condition. Risks, benefits, and alternatives have been discussed and questions answered. Patient agrees to proceed with procedure.
--- NOTE | 2024-11-07 13:35 | WPDANESEPPF ---
Anes - Initial Pre Proc Eval Procedure: Operation Date: 11/07/24 16:00 Proposed Procedures p Repair Incarcerated Umbilical Hernia, - Zeus Decker MD s Possible Small Bowel Resection - Zeus Decker MD Date/Time: 11/07/24 13:35 Surgeon: Kushal Paige MD Pre Op Diagnosis: umb hernia w sbo Patient Data Age: 84 Gender: F Height: 1.55 m Weight: 57.2 kg Last Vital Signs Temp 36.8 C 11/07/24 06:00 Pulse 54 L 11/07/24 06:00 Resp 18 11/07/24 06:00 BP 185/75 H 11/07/24 06:00 Pulse Ox 94 11/07/24 06:00 O2 Del Method Room Air 11/07/24 02:41 Allergies Allergy/AdvReac Type Severity Reaction Status Date / Time Penicillins Allergy Severe Hives Verified 07/21/24 20:39 Home Medications ?Medication ?Instructions ?Recorded ?Confirmed ?Type pantoprazole 40 mg tablet,delayed 40 mg PO BID 30 days #180 tabs 04/12/23 11/07/24 Rx release levothyroxine 150 mcg tablet 150 mcg PO DAILY 08/31/23 11/07/24 History meclizine 25 mg tablet 25 mg PO Q8H PRN Dizziness 08/31/23 11/07/24 History melatonin 10 mg tablet 10 mg PO HS PRN Insomnia 08/31/23 11/07/24 History donepezil 5 mg tablet 10 mg PO DAILY 03/01/24 11/07/24 History atorvastatin 20 mg tablet 20 mg PO QPM 11/07/24 11/07/24 History losartan 50 mg tablet 50 mg PO QHS 11/07/24 11/07/24 History Laboratory Tests 11/06/24 11/06/24 11/06/24 20:36 22:19 22:55 WBC 14.6 H K/mm3 (4.5-10.0) RBC 4.50 M/mm3 (4.2-5.4) Hgb 13.4 g/dL (12.0-15.0) Hct 39.7 % (37.0-47.0) MCV 88.2 fl (80-100) MCH 29.8 pg (26-34) MCHC 33.8 g/dl (32-36) RDW 16.5 H % (11.5-14.5) Plt Count 291 k/mm3 (150-375) MPV 12.5 H fl (7.4-10.4) Immature Gran % (Auto) 0.4 % (0-0.5) Neut % (Auto) 89.2 H % (45.5-73.1) Lymph % (Auto) 7.0 L % (18.3-44.2) [place] % (Auto) 3.2 % (2.6-8.5) Eos % (Auto) 0.1 % (0-4.4) Baso % (Auto) 0.1 L % (0.2-1.2) Lymph # (Auto) 1.02 K/mm3 (0.9-3.2) [place] # (Auto) 0.5 K/mm3 (0.1-0.6) Eos # (Auto) 0.0 K/mm3 (0-0.3) Baso # (Auto) 0.0 K/mm3 (0.0-0.1) Abs Immat Gran (auto) 0.06 H K/mm3 (0.00-0.031) Absolute Neuts (auto) 13.1 H K/mm3 (1.3-6.7) Absolute Nucleated RBC 0.000 K/mm3 (0.0-0.012) Nucleated RBC % 0.0 % (0.0-0.2) PT INR Sodium 141 mmol/L (137-145) Potassium 4.4 mmol/L (3.4-5.0) Chloride 106 mmol/L (98-107) Carbon Dioxide 28 mmol/L (22-30) Anion Gap 7 mmol/L (4-12) BUN 70 H D mg/dL (7-17) Creatinine 2.20 H mg/dL (0.7-1.0) Estim Creat Clear Calc Not Reportable Estimated GFR 21 L (59 - ) Glucose 119 H mg/dL (65-110) POC Capillary Glucose Lactic Acid 1.3 mmol/L (0.7-2.0) Calcium 9.4 mg/dL (8.4-10.2) Total Bilirubin 1.2 mg/dL (0.2-1.3) AST 21 U/L (14-36) ALT 11 U/L (6-35) Alkaline Phosphatase 98 U/L (38-126) Total Protein 8.0 g/dL (6.3-8.2) Albumin 4.0 g/dL (3.5-5.1) Lipase 84 U/L (23-300) Urine Color Yellow (Yellow) Urine Appearance Clear (Clear) Urine pH 8.5 (5.0-9.0) Ur Specific [place] 1.031 (1.001-1.035) Urine Protein 1+ H mg/dL (Negative) Urine Glucose (UA) Negative mg/dL (Negative) Urine Ketones Trace H mg/dL (Negative) Ur Blood (Man) Negative (Negative) Urine Nitrate Positive H (Negative) Urine Bilirubin Negative (Negative) Urine Urobilinogen 1.0 mg/dL (<2.0) Add Ur Microanalysis Reviewed Leukocyte Esterase Rfl Trace H ANNY/UL (Negative) Urine RBC 0-2 /hpf (0-2) Urine WBC 6-10 H /hpf (0-3) Ur Squamous Epith Cells None seen /hpf (Few) Urine Bacteria 4+ /hpf Urine Casts 6-10 Influenza A (RT-PCR) Negative (Negative) Influenza B (RT-PCR) Negative (Negative) RSV (RT-PCR) Negative (Negative) SARS-CoV-2 RNA (RT-PCR) Negative (Negative) Blood Type Antibody Screen 11/07/24 11/07/24 11/07/24 06:53 08:11 08:43 WBC 13.3 H K/mm3 (4.5-10.0) RBC 3.84 L M/mm3 (4.2-5.4) Hgb 11.6 L g/dL (12.0-15.0) Hct 34.7 L % (37.0-47.0) MCV 90.4 fl (80-100) MCH 30.2 pg (26-34) MCHC 33.4 g/dl (32-36) RDW 16.7 H % (11.5-14.5) Plt Count 232 k/mm3 (150-375) MPV 12.6 H fl (7.4-10.4) Immature Gran % (Auto) Neut % (Auto) Lymph % (Auto) [place] % (Auto) Eos % (Auto) Baso % (Auto) Lymph # (Auto) [place] # (Auto) Eos # (Auto) Baso # (Auto) Abs Immat Gran (auto) Absolute Neuts (auto) Absolute Nucleated RBC Nucleated RBC % PT 14.6 Seconds (11.1-14.7) INR 1.1 Sodium 140 mmol/L (137-145) Potassium 3.8 mmol/L (3.4-5.0) Chloride 111 H mmol/L (98-107) Carbon Dioxide 23 mmol/L (22-30) Anion Gap 6 mmol/L (4-12) BUN 56 H D mg/dL (7-17) Creatinine 1.80 H mg/dL (0.7-1.0) Estim Creat Clear Calc 16 ml/min Estimated GFR 27 L (59 - ) Glucose 85 mg/dL (65-110) POC Capillary Glucose 84 mg/dl (65-105) Lactic Acid Calcium 8.4 mg/dL (8.4-10.2) Total Bilirubin AST ALT Alkaline Phosphatase Total Protein Albumin Lipase Urine Color Urine Appearance Urine pH Ur Specific [place] Urine Protein Urine Glucose (UA) Urine Ketones Ur Blood (Man) Urine Nitrate Urine Bilirubin Urine Urobilinogen Add Ur Microanalysis Leukocyte Esterase Rfl Urine RBC Urine WBC Ur Squamous Epith Cells Urine Bacteria Urine Casts Influenza A (RT-PCR) Influenza B (RT-PCR) RSV (RT-PCR) SARS-CoV-2 RNA (RT-PCR) Blood Type O Positive Antibody Screen Negative 11/07/24 11:50 WBC RBC Hgb Hct MCV MCH MCHC RDW Plt Count MPV Immature Gran % (Auto) Neut % (Auto) Lymph % (Auto) [place] % (Auto) Eos % (Auto) Baso % (Auto) Lymph # (Auto) [place] # (Auto) Eos # (Auto) Baso # (Auto) Abs Immat Gran (auto) Absolute Neuts (auto) Absolute Nucleated RBC Nucleated RBC % PT INR Sodium Potassium Chloride Carbon Dioxide Anion Gap BUN Creatinine Estim Creat Clear Calc Estimated GFR Glucose POC Capillary Glucose 78 mg/dl (65-105) Lactic Acid Calcium Total Bilirubin AST ALT Alkaline Phosphatase Total Protein Albumin Lipase Urine Color Urine Appearance Urine pH Ur Specific [place] Urine Protein Urine Glucose (UA) Urine Ketones Ur Blood (Man) Urine Nitrate Urine Bilirubin Urine Urobilinogen Add Ur Microanalysis Leukocyte Esterase Rfl Urine RBC Urine WBC Ur Squamous Epith Cells Urine Bacteria Urine Casts Influenza A (RT-PCR) Influenza B (RT-PCR) RSV (RT-PCR) SARS-CoV-2 RNA (RT-PCR) Blood Type Antibody Screen Patient hx anesthesia problems: none Family hx anesthesia problems: none Results Review: All pre-operative results and documents have been reviewed as part of the pre-operative evaluation. [facility] Past Medical History Medical History (Updated 11/07/24 @ 13:35 by Abdullahi Singh DO) Pancreatitis UTI (urinary tract infection) Right kidney mass Acute UTI JC (acute kidney injury) Chronic diarrhea Acute UTI Umbilical hernia Anxiety and depression COPD mixed type PVD (peripheral vascular disease) red legs s/p bermudez DVT (deep venous thrombosis) Gastroesophageal reflux disease Hypertension Small bowel obstruction Vitamin D deficiency UTI (urinary tract infection) Hypoxia Discharge planning issues Kidney stones Right kidney stone December 2018 Fall as cause of accidental injury in home as place of occurrence Rheumatoid arthritis Chronic venous stasis dermatitis Closed fracture of greater tuberosity of humerus Fracture of neck of humerus Hypothyroidism (acquired) Depression Hyperglycemia Surgical History Surgical History History of evacuation of hematoma Of lateral thigh 2014 Status post cataract extraction of both eyes with insertion of intraocular lens 2004 History of section X1 History of cholecystectomy Family History Family History Sibling Patient's sister is in good health Mother Diabetes mellitus, Onset Age: 41 Father Heart attack Cardiovascular disease Social History Social History (Updated 11/07/24 @ 09:53 by Robles Paige MD) Social History: No alcohol or drug use. Ex-smoker. Primary care physician: Dr. Henry Hinojosa Code status: DNR/DNI Medical POA: Fatemeh Pittman (daughter). Alternate surrogate decision maker: Rubens Stone, php web developer. Smoking packs per day: 2 Smoking cigarettes per day: 40.0 Years smoked: 50 Smoking pack-years: 100.00 Smoking status: Former smoker Second hand tobacco smoke exposure: No Alcohol intake: never Substance use: never Substance use type: does not use Do You Feel Safe in your Home?: Yes Lack of Transportation: No Lack of Food: Never True Current Housing: I Have Housing Concerned About Future Housing: No Difficulty Paying Gas/Electric Bills: No Difficulty Paying for Meds: No Currently Unemployed: No Education: Grade School Difficulty w/ Childcare or Family Care: No Living arrangements: with friend(s) Additional living arrangements comments: lives with php web developer/friend rubens Occupation/Education: retired Additional occupation/education comments: Retired [employer]. Spiritual care concerns: No Anes - Eval Final PreProcedure Day of Procedure 11/07/24 13:35 Patient weight: normal Heart: regular rate and rhythm Lungs: clear to auscultation Airway: Mallampati scale class III Neurological: alert and oriented Last oral intake: >/= 8 hours ASA classification: IV Emergent: yes Anesthetic plan: proceed Anesthesia type and monitoring: general ETT and standard monitoring Results Review: All pre-operative results and documents have been reviewed as part of the pre-operative evaluation. Informed Consent: The patient's anesthetic plan and its attendant risks and benefits were discussed with the patient/family/POA. Questions were solicited and answers provided to the satisfaction of the patient/family/POA.
[2024-11-07 14:28] LABS: Glucose Point of Care 80 mg/dl (65-105)
[2024-11-07] MEDS: metroNIDAZOLE 500 MG/ISO 100ML 500 MG/100 ML BAG 30 MG IVPB ×2 (14:29→20:30)
[2024-11-07] MEDS: LACTATED RINGERS 1,000 ML 30 ML IV CONT ×2 (15:00→16:43)
--- NOTE | 2024-11-07 15:35 | PC.NURSE ---
To OR per bed, IV saline locked. Report given to REBECA Rojo.
--- NOTE | 2024-11-07 15:40 | S_PTH ---
PATIENT: Arielle Pittman LOC: [id number] #:[id number] AGE/SX: 84/F ROOM: 305 RE11/06/[address]: Carroll Rushing, [employer] : 1940 BED: 01 DIS: 11/19/2024 SPEC #: [id number] RECD: 11/08/24 08:02 STATUS: BHARGAV CUTLER #: [id number] LEIGH: 11/07/24 15:[address]: Zeus Decker DEPT: [facility] Surgical RECD BY: Leola Peralta ENTERED: 11/08/24 08:03 SP TYPE: Surgical OTHR DR: MD Henry Hernandez MD Tissues: A - Hernia Sac B - Small Bowel C - Appendix Procedures: Gross and Microscopic Level 2 Hematoxylin and Eosin Stain Gross and Microscopic Level 3 Gross and Microscopic Level 5
[2024-11-07] MEDS: IBUPROFEN IV 800 MG/200 ML 800 MG/200 ML BAG 400 MG IVPB (18:39)
[2024-11-07 18:45] LABS: Glucose Point of Care 89 mg/dl (65-105)
--- NOTE | 2024-11-07 19:42 | W.PM.PROC2 ---
Procedure Note - Detailed Date of Procedure 11/07/24 Pre-op Diagnosis Incarcerated umbilical hernia with small-bowel obstruction Post-op Diagnosis Same (Incarcerated umbilical hernia with obstruction, with bowel ischemia) Procedure Performed Repair 4 cm umbilical hernia, small bowel resection with anastomosis, appendectomy Surgeon Zeus Decker MD Supervisor Calibration Bacilio Anesthesia General Indications The patient is an 84-year-old woman with several comorbidities and a long-standing umbilical hernia. She presented to the emergency room last night with incarcerated umbilical hernia, small-bowel obstruction, and incarcerated loops of small bowel as the source of obstruction. She is taken to surgery now for repair of the hernia and reduction of the obstruction, possible small-bowel resection. Findings The incarcerated small bowel was ischemic with evidence of significant mesenteric venous thrombosis for the obstructed bowel. While it was not frankly infarcted, it was ischemic enough that, if left in place, postoperative stricture would be likely. The hernia defect itself was 4 cm which was actually quite small in comparison to the amount of bowel that was entrapped. The appendix appeared normal but was easily removed as it was in the area of the involved small bowel. Description of Procedure Patient was taken to surgery and induced into general anesthesia. The abdomen is prepped and draped. A curved infraumbilical incision was made. Cautery was used for hemostasis but the subcutaneous and subdermal plexus tended to bleed profusely. Dissection was then carried down to the fascia and the hernia defect. Dissection around the hernia was then carried out. An opening was made in the fascia to enlarge the defect. This allowed mobilization of the bowel. This initial opening had to be enlarged further to allow adequate evaluation and mobilization of the involved small intestine. Once this was performed we were able to see that the distal aspect of the closed loop obstruction was within 6 cm of the ileocecal valve. About 14 cm of bowel was involved. Initially I mobilized the bowel and then dropped back into the abdomen as I was uncertain how significant the ischemic change was. I then began dissecting the hernia sac from the peritoneum and the edges of the defect. Some of the omentum was chronically stuck to the hernia sac and to the umbilical skin at the hernia sac. This omentum was taken down from the hernia sac and some of the more injured omentum was resected. This was discarded. I continued resecting the hernia sac until it was completely removed. This was sent to pathology as incarcerated hernia sac. I carefully watched and observed the umbilical skin. The skin was not injured or perforated during the dissection. I then brought the loop of involved bowel out of the abdomen and re examined it. There was significant vascular impairment especially with thickening and evidence of micro venous disease in the affected mesentery of this loop of small bowel. It seemed at risk for ischemic stricture postoperatively. I opted to resect this segment. I dissected distally and proximally around the involved segment at its junction with healthy bowel. I used a TLC 75 stapler to divide each and of the intestine. I used the LigaSure to divide the intervening mesentery. The appendix was right in the area. I used the LigaSure to divide the mesoappendix. A 3-0 Vicryl was placed at the base of the appendix. The appendix was amputated just above the ligature and the mucosa of the appendiceal stump was cauterized. The appendix was passed off as a specimen as well. I then placed the 2 ends of bowel in [id number] fashion planning a [id number]-ej-rysk but functional end-to-end anastomosis. This was performed using the TLC 55 stapler. I closed the mesenteric defect with interrupted 4-0 silk. The anastomosis looked good, both ends of bowel were very healthy and well vascularized. I dropped this distal ileal anastomosis back into the abdomen. I looked for any evidence of bleeding or other issues. I pulled the omentum down over the small bowel. I then closed the umbilical defect with [id number] mattress sutures of 0 Ethibond. I used 3-0 Vicryl to tack the umbilical skin to the fascia in the area of the hernia defect. I then closed the subcutaneous of the incision with interrupted 3-0 Vicryl. A 15 [place] drain was brought out the right side of the abdomen and was placed primarily in the upper aspect of the umbilicus as there was considerable space from there. We continued closing the subcutaneous in interrupted fashion. The skin was loosely approximated with interrupted 4-0 Vicryl subcuticular skin suture. The skin was then closed with daphne. The drain was sutured to the skin with 2-0 silk. The drain was placed to bulb suction. The wound was dressed with Xeroform gauze, fluffs, Medipore tape. Patient was awakened and taken to recovery in stable condition. Sponge and needle counts were correct x2. Estimated Blood Loss -20 Urine Output 200 Drains Yes (Fifteen Spanish Kolton drain subcutaneous) Packing No Pathology Yes (Umbilical hernia sac, small-bowel resection incarcerated distal ileum with ischemic change, appendix) Complications None Condition Stable Disposition PACU [facility] Billing Surgery - Charge Forward: Surgery Billing (Small-bowel resection with anastomosis, repair 4 cm incarcerated umbilical hernia. Appendectomy)
[2024-11-07 20:57] LABS: Glucose Point of Care 90 mg/dl (65-105)
[2024-11-08] MEDS: hydrALAZINE HCL 20 MG/ML VIAL 10 MG IV PUSH ×2 (03:04→12:51)
[2024-11-08] MEDS: LEVOTHYROXINE SODIUM INJ 100 MCG/5 ML VIAL 75 MCG IV PUSH (05:32)
[2024-11-08] MEDS: ONDANSETRON INJ 4 MG/2 ML VIAL IV PUSH (05:32)
[2024-11-08] MEDS: LACTATED RINGERS 1,000 ML 100 ML IV CONT (05:33)
[2024-11-08] MEDS: metroNIDAZOLE 500 MG/ISO 100ML 500 MG/100 ML BAG 30 MG IVPB (05:33)
[2024-11-08 06:10] LABS: Glucose Point of Care 83 mg/dl (65-105)
[2024-11-08 06:47] VITALS: BP 152/67; PULSE 62; RESP 18; TEMP 37.1; O2SAT 100
[2024-11-08 07:09] LABS: Basophils Percent Auto 0.1 % (0.2-1.2); Eosinophils Percent Auto 0.1 % (0-4.4); Hematocrit 35.7 % (37.0-47.0); Hemoglobin 11.6 g/dL (12.0-15.0); Immature Granulocyte Absolute 0.07 K/mm3 (0.00-0.031); Immature Granulocyte Percent A 0.5 % (0-0.5); Lymphocytes Absolute Auto 1.32 K/mm3 (0.9-3.2); Lymphocytes Percent Auto 9.3 % (18.3-44.2); Mean Corpuscular HGB Conc 32.5 g/dl (32-36); Mean Corpuscular Hemoglobin 29.5 pg (26-34); Mean Corpuscular Volume 90.8 fl (80-100); Mean Platelet Volume 12.4 fl (7.4-10.4); Monocytes Absolute Auto 0.6 K/mm3 (0.1-0.6); Monocytes Percent Auto 4.5 % (2.6-8.5); Neutrophils Absolute Auto 12.1 K/mm3 (1.3-6.7); Neutrophils Percent Auto 85.5 % (45.5-73.1); Platelet Count Result 246 k/mm3 (150-375); Red Blood Count 3.93 M/mm3 (4.2-5.4); Red Cell Distribution Width 17.1 % (11.5-14.5); White Blood Count 14.2 K/mm3 (4.5-10.0)
[2024-11-08 07:20] LABS: Albumin Level 2.9 g/dL (3.5-5.1); Anion Gap 9 mmol/L (4-12); Blood Urea Nitrogen 46 mg/dL (7-17); Calcium 8.2 mg/dL (8.4-10.2); Carbon Dioxide 21 mmol/L (22-30); Chloride 113 mmol/L (98-107); Estimated CRCL calculation 16 ml/min; Estimated Glomerular Filt Rate 27; Glucose 81 mg/dL (65-110); Magnesium 1.5 mg/dL (1.6-2.3); Phosphorus 4.1 mg/dL (2.5-4.5); Potassium 3.4 mmol/L (3.4-5.0); Sodium 143 mmol/L (137-145)
--- NOTE | 2024-11-08 08:18 | P.PNAN_ITS ---
Anes - Prog Note Post-Op Date/Time: 11/08/24 08:18 Vital Signs: Last Vital Signs Temp 37.1 C 11/08/24 06:47 Pulse 62 11/08/24 06:47 Resp 18 11/08/24 06:47 BP 152/67 H 11/08/24 06:47 Pulse Ox 100 11/08/24 06:47 O2 Del Method Room Air 11/07/24 20:00 O2 Flow Rate 8 11/07/24 16:43 Pain Score (VAS): 0 I/O: Intake & Output 11/07/24 11/08/24 11/08/24 23:59 07:59 15:59 Intake Total 300 1000 Output Total 450 300 Balance -150 700 Laboratory Tests 11/08/24 06:46 11/08/24 06:46 11/07/24 11/07/24 11/07/24 08:11 08:43 11:50 WBC 13.3 H RBC 3.84 L Hgb 11.6 L Hct 34.7 L MCV 90.4 MCH 30.2 MCHC 33.4 RDW 16.7 H Plt Count 232 MPV 12.6 H Immature Gran % (Auto) Neut % (Auto) Lymph % (Auto) [place] % (Auto) Eos % (Auto) Baso % (Auto) Lymph # (Auto) [place] # (Auto) Eos # (Auto) Baso # (Auto) Abs Immat Gran (auto) Absolute Neuts (auto) Absolute Nucleated RBC Nucleated RBC % PT 14.6 INR 1.1 Sodium 140 Potassium 3.8 Chloride 111 H Carbon Dioxide 23 Anion Gap 6 BUN 56 H D Creatinine 1.80 H Estim Creat Clear Calc 16 Estimated GFR 27 L Glucose 85 POC Capillary Glucose 78 Calcium 8.4 Phosphorus Magnesium Albumin Blood Type O Positive Antibody Screen Negative 11/07/24 11/07/24 11/07/24 14:26 18:42 20:49 WBC RBC Hgb Hct MCV MCH MCHC RDW Plt Count MPV Immature Gran % (Auto) Neut % (Auto) Lymph % (Auto) [place] % (Auto) Eos % (Auto) Baso % (Auto) Lymph # (Auto) [place] # (Auto) Eos # (Auto) Baso # (Auto) Abs Immat Gran (auto) Absolute Neuts (auto) Absolute Nucleated RBC Nucleated RBC % PT INR Sodium Potassium Chloride Carbon Dioxide Anion Gap BUN Creatinine Estim Creat Clear Calc Estimated GFR Glucose POC Capillary Glucose 80 89 90 Calcium Phosphorus Magnesium Albumin Blood Type Antibody Screen 11/08/24 11/08/24 06:05 06:46 WBC 14.2 H RBC 3.93 L Hgb 11.6 L Hct 35.7 L MCV 90.8 MCH 29.5 MCHC 32.5 RDW 17.1 H Plt Count 246 MPV 12.4 H Immature Gran % (Auto) 0.5 Neut % (Auto) 85.5 H Lymph % (Auto) 9.3 L [place] % (Auto) 4.5 Eos % (Auto) 0.1 Baso % (Auto) 0.1 L Lymph # (Auto) 1.32 [place] # (Auto) 0.6 Eos # (Auto) 0.0 Baso # (Auto) 0.0 Abs Immat Gran (auto) 0.07 H Absolute Neuts (auto) 12.1 H Absolute Nucleated RBC 0.000 Nucleated RBC % 0.0 PT INR Sodium 143 Potassium 3.4 Chloride 113 H Carbon Dioxide 21 L Anion Gap 9 BUN 46 H D Creatinine 1.80 H Estim Creat Clear Calc 16 Estimated GFR 27 L Glucose 81 POC Capillary Glucose 83 Calcium 8.2 L Phosphorus 4.1 Magnesium 1.5 L Albumin 2.9 L Blood Type Antibody Screen Patient Feedback: Patient satisfied with anesthetic care.
[2024-11-08] MEDS: ENOXAPARIN 30 MG/0.3 ML SYRINGE SUB-Q (09:24)
[2024-11-08] MEDS: PANTOPRAZOLE SODIUM IV 40 MG VIAL IV PUSH (09:24)
[2024-11-08 11:44] VITALS: BP 149/56; PULSE 98; RESP 18; TEMP 36.6; O2SAT 94
--- NOTE | 2024-11-08 11:52 | P.PNIM_ITS ---
Progress Note: A&P Assessment and Plan (1) SBO (small bowel obstruction): Code(s): K56.609 - Unspecified intestinal obstruction, unspecified as to partial versus complete obstruction Status: Acute Assessment and Plan: Patient presents with abdominal pain and found to have SBO from incarcerated umbilical hernia. CT Abd showing diffuse small bowel dilation, transition point at the entrance of an umbilical hernia which contains a loop of nondilated distal ileum. No large bowel dilation. Normal appendix. Diverticulosis without diverticulitis. NGT placed. Repeat imaging showing SBO. Lactic normal. General surgery consulted and appreciate their input. Patient underwent repair 4 cm umbilical hernia, small bowel resection with anastomosis and appendectomy on 11/07/23. She appears to have toelrated the procedure quite well. Pain controlled. Toleratiing small amounts of oral intake. She is having coughing with liquid so ST evaluation performed. Speech recommended continuing ice chips and mildly thickened liquids when able. Currently just on ice chips. Will need MBS. (2) Incarcerated umbilical hernia: Code(s): K42.0 - Umbilical hernia with obstruction, without gangrene Status: Acute Assessment and Plan: As above. (3) [id number]-temjmar kidney injury: Code(s): N17.9 - Acute kidney failure, unspecified; N18.9 - Chronic kidney disease, unspecified Status: Acute Assessment and Plan: BUN 70 and Cr 2.2 on admission. Baseline Cr 1.3-1.6 over the past year. CT scan with conrast showing no hydronephrosis or obstructing calcification; 1.6 cm indeterminate density left upper pole lesion (measured 1.5cm in January 2023); multiple bilateral subcentimeter renal hypodensities, too small to characterize; mild bladder wall edema possibly cystitis. UA consistent with UTI. Suspect dehydration and/or ATN and/or from infection causing the JC Cr better with IV fluids to 1.2. Follow and monitor UOP, electrolytes and renal fxn (4) Abnormal CT of the abdomen: Code(s): R93.5 - Abnormal findings on diagnostic imaging of other abdominal regions, including retroperitoneum Status: Acute Assessment and Plan: CXR showing possibly 15mm right apical pulm nodule. CT abd/pelvis showing RML and RLL bronchiectasis and bronchial wall thickening. Ground glass and centrilobular nodular opacities adjacent to the area of bronchiectasis in the right lower lobe. Influenza, RSV and COVID PCR negative. Also with left adrenal mass at 5.1cm that has grown since January 2023 Also noted with fluid distended endometrial cavity with irregular intraluminal hyperdensity and gas, may represent endometrial hemorrhage, infectious material, or less likely a polyp. Patient will need CT chest and pelvic US once acute problem is addressed. (5) UTI (urinary tract infection): Qualifiers: Hematuria presence: with hematuria Urinary tract infection type: acute cystitis Qualified Code(s): N30.01 - Acute cystitis with hematuria Code(s): N39.0 - Urinary tract infection, site not specified Status: Acute Assessment and Plan: UA is consistent with UTI. UCx collected. Rocephin started. Prior UTIs are normally august-sensitive. UCx growing Proteus. Follow up on UCx results. (6) HTN (hypertension): Qualifiers: Hypertension type: essential hypertension Qualified Code(s): I10 - Essential (primary) hypertension Code(s): I10 - Essential (primary) hypertension Status: Acute Assessment and Plan: Patient's blood pressure was reviewed on 11/08. Blood pressure remains elevated at times probably related to being off her anti0-HTN meds and pain. She only takes losartan 50mg daily. Continue IV hydralazine scheduled since march be NPO for awhile. Plan Hypothyroidism - changed levothyroxine to IV DVT prophylaxis - lovenox Code status - DNR Subjective Date/time seen: 11/08/24 11:52 Interval history: 84yo female with RA, HTN PVD, COPD, hx of DVT and SBO here for abdominal pain. No abd pain. No CP or SOB. Passing flatus but no BMs. Able to take in ice chips and small sips of water. Exam Narrative: AF 98.7 152/67 62 18 100% ra Gen - NARD but with cough after drinking water Chest - lungs are clear anteriorly and in the flanks. CV - regular rate and rhythm. S1-S2. Abd - soft, hypoactive BS. Dressing clean and dry. drain in place wit serosang fluid in bulb. Ext - no pedal edema Psych - normal mood and affect. Skin - warm and dry. Objective Data Vital Signs Vital Signs: Vital Signs - 24 hr 11/07/24 13:50 11/07/24 16:43 11/07/24 16:58 Temperature 98.2 F 97.8 F Pulse Rate 65 60 62 Respiratory Rate 18 20 23 H Blood Pressure 161/75 H 183/77 H 179/72 H Pulse Oximetry 96 100 94 Oxygen Delivery Room Air Simple Face Mask Room Air Oxygen Flow Rate 8 11/07/24 17:13 11/07/24 17:28 11/07/24 17:43 Temperature Pulse Rate 62 62 63 Respiratory Rate 23 H 21 H 30 H Blood Pressure 176/72 H 173/72 H 172/75 H Pulse Oximetry 93 93 93 Oxygen Delivery Room Air Room Air Room Air Oxygen Flow Rate 11/07/24 17:54 11/07/24 18:44 11/07/24 20:00 Temperature 98.3 F Pulse Rate 63 61 Respiratory Rate 22 H 15 Blood Pressure 169/77 H 193/73 H Pulse Oximetry 93 97 Oxygen Delivery Room Air Room Air Oxygen Flow Rate 11/07/24 20:17 11/08/24 06:47 Temperature 99.7 F H 98.7 F Pulse Rate 99 62 Respiratory Rate 18 18 Blood Pressure 158/66 H 152/67 H Pulse Oximetry 91 100 Oxygen Delivery Oxygen Flow Rate Intake/Output Intake/Output: Intake & Output 11/05/24 11/06/24 11/07/24 11/08/24 23:59 23:59 23:59 23:59 Intake Total 1999 750 1000 Output Total 900 300 Balance 2000 -150 700 Meds/Results Medications: Active Medications Generic Name Dose Route Start Last Admin Trade Name Freq PRN Reason Stop Dose Admin Enoxaparin Sodium 30 mg 11/08/24 09:00 11/08/24 09:24 Enoxaparin 30 Mg/0.3 Ml Syringe SUB-Q 30 mg DAILY SALMA Administration Fentanyl Citrate 12.5 mcg 11/07/24 17:59 Fentanyl Citrate Inj (*Crx) 100 Mcg/2 Ml Vial IV PUSH Q2H PRN Breakthrough Pain Rated 4-6 or NPO Fentanyl Citrate 25 mcg 11/07/24 17:59 Fentanyl Citrate Inj (*Crx) 100 Mcg/2 Ml Vial IV PUSH Q2H PRN Breakthrough Pain Rated 7-10 or NPO Hydralazine HCl 10 mg 11/07/24 11:00 11/08/24 03:04 Hydralazine Hcl 20 Mg/Ml Vial IV PUSH 10 mg Q8H SALMA Administration Ceftriaxone Sodium 1 gm in 50 mls @ 100 mls/hr 11/08/24 00:00 11/08/24 00:14 Rocephin 1 Gm/Ns 50 Ml IVPB 100 mls/hr Q24H SALMA Administration Metronidazole 500 mg in 100 mls @ 100 mls/hr 11/07/24 06:00 11/08/24 05:33 Flagyl 500 Mg/Iso Soln 100 Ml IVPB 30 mls/hr Q8H SALMA Administration Lactated Ringer's 1,000 mls @ 100 mls/hr 11/07/24 17:59 11/08/24 05:33 Lr - Lactated Ringers Iv IV CONT 100 mls/hr .Q10H SALMA Administration Ibuprofen 800 mg in 200 mls @ 400 mls/hr 11/07/24 17:59 11/07/24 19:09 Caldolor 800 Mg/200 Ml IVPB Infused Q6H PRN Infusion Breakthrough Pain Rated 1-3 or NPO Levothyroxine Sodium 75 mcg 11/07/24 10:25 11/08/24 05:32 Levothyroxine Sodium Inj 100 Mcg/5 Ml Vial IV PUSH 75 mcg DAILY@0630 SALMA Administration Naloxone HCl 0.1 mg 11/07/24 17:59 Naloxone Hcl 0.4 Mg/Ml Vial IV PUSH Q2M PRN Opiate Reversal Ondansetron HCl 4 mg 11/07/24 10:16 11/08/24 05:32 Ondansetron Inj 4 Mg/2 Ml Vial IV PUSH 4 mg Q6H PRN Administration Nausea And Vomiting Pantoprazole Sodium 40 mg 11/07/24 10:25 11/08/24 09:24 Pantoprazole Sodium Iv 40 Mg Vial IV PUSH 40 mg QAM SALMA Administration Radiology Results: ITS Impressions Abdomen/Pelvis CT 11/06/24 21:22 IMPRESSION: Focal areas of right middle lobe and right lower lobe chronic infection, in flammation, or aspiration. 5.1 cm left adrenal mass, previously met criteria for adenoma but now demonstrating interval growth that could reflect interval hemorrhage within an adenoma or different cell type. Indeterminate density 1.6 cm right renal lesion, also with interval growth. Recommend nonemergent MR of the abdomen without contrast to evaluate these lesions. Small bowel obstruction with herniation of a loop of distal ileum into an umbilical hernia. Mild inflammatory changes within the hernia sac. Fluid distended endometrial cavity with irregular intraluminal hyperdensity and gas, may represent endometrial hemorrhage, infectious material, or less likely a polyp. Correlate with any history of recent gynecologic procedure. Consider endometritis in the differential and pelvic ultrasound for further evaluation. Possible cystitis, correlate with urinalysis. Chest X-Ray 11/07/24 05:18 Impression: Possible 15 mm right apical pulmonary nodule versus confluence of shadows. Chest CT recommended to confirm or exclude pulmonary nodule. Abdomen X-Ray 11/07/24 05:24 Impression: NG tube in satisfactory position. Small bowel obstruction. Labs Labs: Laboratory Results - last 24 hr 11/07/24 11/07/24 11/07/24 11:50 14:26 18:42 WBC RBC Hgb Hct MCV MCH MCHC RDW Plt Count MPV Immature Gran % (Auto) Neut % (Auto) Lymph % (Auto) [place] % (Auto) Eos % (Auto) Baso % (Auto) Lymph # (Auto) [place] # (Auto) Eos # (Auto) Baso # (Auto) Abs Immat Gran (auto) Absolute Neuts (auto) Absolute Nucleated RBC Nucleated RBC % Sodium Potassium Chloride Carbon Dioxide Anion Gap BUN Creatinine Estim Creat Clear Calc Estimated GFR Glucose POC Capillary Glucose 78 80 89 Calcium Phosphorus Magnesium Albumin 11/07/24 11/08/24 11/08/24 20:49 06:05 06:46 WBC 14.2 H RBC 3.93 L Hgb 11.6 L Hct 35.7 L MCV 90.8 MCH 29.5 MCHC 32.5 RDW 17.1 H Plt Count 246 MPV 12.4 H Immature Gran % (Auto) 0.5 Neut % (Auto) 85.5 H Lymph % (Auto) 9.3 L [place] % (Auto) 4.5 Eos % (Auto) 0.1 Baso % (Auto) 0.1 L Lymph # (Auto) 1.32 [place] # (Auto) 0.6 Eos # (Auto) 0.0 Baso # (Auto) 0.0 Abs Immat Gran (auto) 0.07 H Absolute Neuts (auto) 12.1 H Absolute Nucleated RBC 0.000 Nucleated RBC % 0.0 Sodium 143 Potassium 3.4 Chloride 113 H Carbon Dioxide 21 L Anion Gap 9 BUN 46 H D Creatinine 1.80 H Estim Creat Clear Calc 16 Estimated GFR 27 L Glucose 81 POC Capillary Glucose 90 83 Calcium 8.2 L Phosphorus 4.1 Magnesium 1.5 L Albumin 2.9 L
[2024-11-08 12:10] LABS: Glucose Point of Care 75 mg/dl (65-105)
[2024-11-08] MEDS: MAGNESIUM SULF 2 GM/WATER 50ML 2 GM/50 ML BAG IVPB (12:26)
--- NOTE | 2024-11-08 15:36 | PCSTNOTE ---
Please refer to the Bedside Swallow Evaluation in the EMR. Please note, silent aspiration cannot be ruled out at bedside.
[2024-11-08 15:44] VITALS: BP 136/54; PULSE 55; RESP 18; TEMP 36.6; O2SAT 97
[2024-11-08] MEDS: metroNIDAZOLE 500 MG/ISO 100ML 500 MG/100 ML BAG 100 MG IVPB ×2 (15:57→23:08)
--- NOTE | 2024-11-08 16:28 | PM.PNGS ---
Progress Note: A&P Assessment and Plan (1) S/P small bowel resection: Code(s): Z90.49 - Acquired absence of other specified parts of digestive tract Status: Acute Assessment and Plan: Ischemic bowel incarcerated in umbilical hernia. Distal small-bowel resection with anastomosis. Await return bowel function. Continue NG tube, NPO except meds with sips of water. Follow labs and exam. (2) History of umbilical hernia repair: Code(s): Z98.890 - Other specified postprocedural states; Z87.19 - Personal history of other diseases of the digestive system Status: Acute Assessment and Plan: Repair intact but umbilical skin looks very ischemic. Will need to follow closely. May need debridement. (3) SBO (small bowel obstruction): Code(s): K56.609 - Unspecified intestinal obstruction, unspecified as to partial versus complete obstruction Status: Acute (4) Incarcerated umbilical hernia: Code(s): K42.0 - Umbilical hernia with obstruction, without gangrene Status: Acute Subjective Subjective Date/Time Seen: 11/08/24 16:28 Post Op day: 1 Patient reports: no new complaints, feels better, no flatus, no bowel movement and afebrile Exam Const: General: cooperative, comfortable, no acute distress, alert and awake GI: Inspection: non-distended, incision (Dry and healing, umbilical skin ischemic), scaphoid and other (Serosanguineous fluid in subcutaneous drain) GI Palp: Yes Soft to palpation, Yes Tenderness to palpation present (GI), No Guarding due to palpation present (GI), No Hernia present, No Palpable mass present and No Rebound tenderness present Auscultation: absent bowel sounds Extrem: General: no calf tenderness and no edema Psych: Affect: normal affect Objective Data Vital Signs Vital Signs: Vital Signs - 24 hr 11/07/24 16:43 11/07/24 16:58 11/07/24 17:13 Temperature 36.6 C Pulse Rate 60 62 62 Respiratory Rate 20 23 H 23 H Blood Pressure 183/77 H 179/72 H 176/72 H Pulse Oximetry 100 94 93 Oxygen Delivery Simple Face Mask Room Air Room Air Oxygen Flow Rate 8 11/07/24 17:28 11/07/24 17:43 11/07/24 17:54 Temperature Pulse Rate 62 63 63 Respiratory Rate 21 H 30 H 22 H Blood Pressure 173/72 H 172/75 H 169/77 H Pulse Oximetry 93 93 93 Oxygen Delivery Room Air Room Air Room Air Oxygen Flow Rate 11/07/24 18:44 11/07/24 20:00 11/07/24 20:17 Temperature 36.8 C 37.6 C H Pulse Rate 61 99 Respiratory Rate 15 18 Blood Pressure 193/73 H 158/66 H Pulse Oximetry 97 91 Oxygen Delivery Room Air Oxygen Flow Rate 11/08/24 06:47 11/08/24 11:44 11/08/24 12:39 Temperature 37.1 C 36.6 C Pulse Rate 62 98 Respiratory Rate 18 18 Blood Pressure 152/67 H 149/56 H Pulse Oximetry 100 94 Oxygen Delivery Room Air Oxygen Flow Rate 11/08/24 15:44 Temperature 36.6 C Pulse Rate 55 L Respiratory Rate 18 Blood Pressure 136/54 L Pulse Oximetry 97 Oxygen Delivery Oxygen Flow Rate Intake/Output Intake/Output: Intake & Output 11/05/24 11/06/24 11/07/24 11/08/24 23:59 23:59 23:59 23:59 Intake Total 1999 750 1150 Output Total 900 300 Balance 1999 -150 850 Meds/Results Medications: Active Medications Generic Name Dose Route Start Last Admin Trade Name Freq PRN Reason Stop Dose Admin Enoxaparin Sodium 30 mg 11/08/24 09:00 11/08/24 09:24 Enoxaparin 30 Mg/0.3 Ml Syringe SUB-Q 30 mg DAILY SALMA Administration Fentanyl Citrate 12.5 mcg 11/07/24 17:59 Fentanyl Citrate Inj (*Crx) 100 Mcg/2 Ml Vial IV PUSH Q2H PRN Breakthrough Pain Rated 4-6 or NPO Fentanyl Citrate 25 mcg 11/07/24 17:59 Fentanyl Citrate Inj (*Crx) 100 Mcg/2 Ml Vial IV PUSH Q2H PRN Breakthrough Pain Rated 7-10 or NPO Hydralazine HCl 10 mg 11/07/24 11:00 11/08/24 12:51 Hydralazine Hcl 20 Mg/Ml Vial IV PUSH 10 mg Q8H SALMA Administration Ceftriaxone Sodium 1 gm in 50 mls @ 100 mls/hr 11/08/24 00:00 11/08/24 00:14 Rocephin 1 Gm/Ns 50 Ml IVPB 100 mls/hr Q24H SALMA Administration Metronidazole 500 mg in 100 mls @ 100 mls/hr 11/07/24 06:00 11/08/24 15:57 Flagyl 500 Mg/Iso Soln 100 Ml IVPB 100 mls/hr Q8H SALMA Administration Lactated Ringer's 1,000 mls @ 100 mls/hr 11/07/24 17:59 11/08/24 05:33 Lr - Lactated Ringers Iv IV CONT 100 mls/hr .Q10H SALMA Administration Ibuprofen 800 mg in 200 mls @ 400 mls/hr 11/07/24 17:59 11/07/24 19:09 Caldolor 800 Mg/200 Ml IVPB Infused Q6H PRN Infusion Breakthrough Pain Rated 1-3 or NPO Levothyroxine Sodium 75 mcg 11/07/24 10:25 11/08/24 05:32 Levothyroxine Sodium Inj 100 Mcg/5 Ml Vial IV PUSH 75 mcg DAILY@0630 SALMA Administration Naloxone HCl 0.1 mg 11/07/24 17:59 Naloxone Hcl 0.4 Mg/Ml Vial IV PUSH Q2M PRN Opiate Reversal Ondansetron HCl 4 mg 11/07/24 10:16 11/08/24 05:32 Ondansetron Inj 4 Mg/2 Ml Vial IV PUSH 4 mg Q6H PRN Administration Nausea And Vomiting Pantoprazole Sodium 40 mg 11/07/24 10:25 11/08/24 09:24 Pantoprazole Sodium Iv 40 Mg Vial IV PUSH 40 mg QAM SALMA Administration Radiology Results: ITS Impressions Abdomen/Pelvis CT 11/06/24 21:22 IMPRESSION: Focal areas of right middle lobe and right lower lobe chronic infection, inflammation, or aspiration. 5.1 cm left adrenal mass, previously met criteria for adenoma but now demonstrating interval growth that could reflect interval hemorrhage within an adenoma or different cell type. Indeterminate density 1.6 cm right renal lesion, also with interval growth. Recommend nonemergent MR of the abdomen without contrast to evaluate these lesions. Small bowel obstruction with herniation of a loop of distal ileum into an umbilical hernia. Mild inflammatory changes within the hernia sac. Fluid distended endometrial cavity with irregular intraluminal hyperdensity and gas, may represent endometrial hemorrhage, infectious material, or less likely a polyp. Correlate with any history of recent gynecologic procedure. Consider endometritis in the differential and pelvic ultrasound for further evaluation. Possible cystitis, correlate with urinalysis. Chest X-Ray 11/07/24 05:18 Impression: Possible 15 mm right apical pulmonary nodule versus confluence of shadows. Chest CT recommended to confirm or exclude pulmonary nodule. Abdomen X-Ray 11/07/24 05:24 Impression: NG tube in satisfactory position. Small bowel obstruction. Labs Labs: Laboratory Results - last 24 hr 11/07/24 11/07/24 11/08/24 18:42 20:49 06:05 WBC RBC Hgb Hct MCV MCH MCHC RDW Plt Count MPV Immature Gran % (Auto) Neut % (Auto) Lymph % (Auto) [place] % (Auto) Eos % (Auto) Baso % (Auto) Lymph # (Auto) [place] # (Auto) Eos # (Auto) Baso # (Auto) Abs Immat Gran (auto) Absolute Neuts (auto) Absolute Nucleated RBC Nucleated RBC % Sodium Potassium Chloride Carbon Dioxide Anion Gap BUN Creatinine Estim Creat Clear Calc Estimated GFR Glucose POC Capillary Glucose 89 90 83 Calcium Phosphorus Magnesium Albumin 11/08/24 11/08/24 06:46 11:40 WBC 14.2 H RBC 3.93 L Hgb 11.6 L Hct 35.7 L MCV 90.8 MCH 29.5 MCHC 32.5 RDW 17.1 H Plt Count 246 MPV 12.4 H Immature Gran % (Auto) 0.5 Neut % (Auto) 85.5 H Lymph % (Auto) 9.3 L [place] % (Auto) 4.5 Eos % (Auto) 0.1 Baso % (Auto) 0.1 L Lymph # (Auto) 1.32 [place] # (Auto) 0.6 Eos # (Auto) 0.0 Baso # (Auto) 0.0 Abs Immat Gran (auto) 0.07 H Absolute Neuts (auto) 12.1 H Absolute Nucleated RBC 0.000 Nucleated RBC % 0.0 Sodium 143 Potassium 3.4 Chloride 113 H Carbon Dioxide 21 L Anion Gap 9 BUN 46 H D Creatinine 1.80 H Estim Creat Clear Calc 16 Estimated GFR 27 L Glucose 81 POC Capillary Glucose 75 Calcium 8.2 L Phosphorus 4.1 Magnesium 1.5 L Albumin 2.9 L
[2024-11-08 19:44] VITALS: BP 139/47; PULSE 59; RESP 14; TEMP 37.1; O2SAT 97
[2024-11-08 20:00] VITALS: PULSE 59; RESP 14; O2SAT 97
[2024-11-08] MEDS: IBUPROFEN IV 800 MG/200 ML 800 MG/200 ML BAG 400 MG IVPB (23:38)
[2024-11-09 04:35] VITALS: BP 128/62; PULSE 56; RESP 16; TEMP 36.3; O2SAT 94
[2024-11-09] MEDS: LEVOTHYROXINE SODIUM INJ 100 MCG/5 ML VIAL 75 MCG IV PUSH (05:12)
[2024-11-09] MEDS: metroNIDAZOLE 500 MG/ISO 100ML 500 MG/100 ML BAG 100 MG IVPB ×3 (05:15→21:46)
[2024-11-09 07:34] LABS: Basophils Percent Auto 0.1 % (0.2-1.2); Eosinophils Percent Auto 0.1 % (0-4.4); Hematocrit 34.5 % (37.0-47.0); Immature Granulocyte Absolute 0.04 K/mm3 (0.00-0.031); Immature Granulocyte Percent A 0.3 % (0-0.5); Lymphocytes Absolute Auto 0.99 K/mm3 (0.9-3.2); Lymphocytes Percent Auto 7.6 % (18.3-44.2); Mean Corpuscular HGB Conc 31.9 g/dl (32-36); Mean Corpuscular Hemoglobin 29.5 pg (26-34); Mean Corpuscular Volume 92.5 fl (80-100); Mean Platelet Volume 12.5 fl (7.4-10.4); Monocytes Absolute Auto 0.4 K/mm3 (0.1-0.6); Monocytes Percent Auto 2.9 % (2.6-8.5); Neutrophils Absolute Auto 11.6 K/mm3 (1.3-6.7); Platelet Count Result 235 k/mm3 (150-375); Red Blood Count 3.73 M/mm3 (4.2-5.4); Red Cell Distribution Width 17.4 % (11.5-14.5); White Blood Count 13.1 K/mm3 (4.5-10.0)
[2024-11-09 07:44] LABS: Glucose Point of Care 76 mg/dl (65-105)
[2024-11-09 08:00] VITALS: PULSE 66; RESP 16; O2SAT 94
[2024-11-09 08:23] LABS: Alanine Aminotransferase 7 U/L (6-35); Albumin Level 2.6 g/dL (3.5-5.1); Anion Gap 8 mmol/L (4-12); Bilirubin,Total 0.7 mg/dL (0.2-1.3); Blood Urea Nitrogen 39 mg/dL (7-17); Calcium 8.1 mg/dL (8.4-10.2); Carbon Dioxide 19 mmol/L (22-30); Chloride 115 mmol/L (98-107); Estimated CRCL calculation 20 ml/min; Estimated Glomerular Filt Rate 36; Glucose 67 mg/dL (65-110); Sodium 142 mmol/L (137-145)
[2024-11-09 08:34] LABS: Alkaline Phosphatase 62 U/L (38-126); Aspartate Amino Transferase 17 U/L (14-36); Magnesium 2.5 mg/dL (1.6-2.3); Phosphorus 3.5 mg/dL (2.5-4.5)
[2024-11-09] MEDS: PANTOPRAZOLE SODIUM IV 40 MG VIAL IV PUSH (09:21)
[2024-11-09] MEDS: ENOXAPARIN 30 MG/0.3 ML SYRINGE SUB-Q (09:22)
--- NOTE | 2024-11-09 10:56 | PM.PNGS ---
Progress Note: A&P Assessment and Plan (1) Incarcerated umbilical hernia: Code(s): K42.0 - Umbilical hernia with obstruction, without gangrene Status: Acute Assessment and Plan: improving, will try to clamp NG and start sips of clears, OOB/IS Subjective Subjective Date/Time Seen: 11/09/24 10:56 Interval history: feels better, +flatus Review of Systems Review of Systems: All systems reviewed & are unremarkable except as noted in HPI and below Exam Const: General: cooperative, comfortable, no acute distress and ill appearing Resp: Auscultation: clear to auscultation bilaterally Cardio: Rate: regular rate Rhythm: regular rhythm GI: Inspection: normal to inspection, distended and incision GI Palp: Yes abdominal tenderness and Yes Soft to palpation Other: LUI SANGEL c s/s output Objective Data Vital Signs Vital Signs: Vital Signs - 24 hr 11/08/24 11:44 11/08/24 12:39 11/08/24 15:44 Temperature 36.6 C 36.6 C Pulse Rate 98 55 L Respiratory Rate 18 18 Blood Pressure 149/56 H 136/54 L Pulse Oximetry 94 97 Oxygen Delivery Room Air 11/08/24 19:44 11/08/24 20:00 11/09/24 04:35 Temperature 37.1 C 36.3 C L Pulse Rate 59 L 59 L 56 L Respiratory Rate 14 14 16 Blood Pressure 139/47 L 128/62 Pulse Oximetry 97 97 94 Oxygen Delivery Room Air Intake/Output Intake/Output: Intake & Output 11/06/24 11/07/24 11/08/24 11/09/24 23:59 23:59 23:59 23:59 Intake Total 1999 750 1350 350 Output Total 900 1250 200 Balance 2000 -150 100 150 Meds/Results Medications: Active Medications Generic Name Dose Route Start Last Admin Trade Name Freq PRN Reason Stop Dose Admin Enoxaparin Sodium 30 mg 11/08/24 09:00 11/09/24 09:22 Enoxaparin 30 Mg/0.3 Ml Syringe SUB-Q 30 mg DAILY SALMA Administration Fentanyl Citrate 12.5 mcg 11/07/24 17:59 Fentanyl Citrate Inj (*Crx) 100 Mcg/2 Ml Vial IV PUSH Q2H PRN Breakthrough Pain Rated 4-6 or NPO Fentanyl Citrate 25 mcg 11/07/24 17:59 Fentanyl Citrate Inj (*Crx) 100 Mcg/2 Ml Vial IV PUSH Q2H PRN Breakthrough Pain Rated 7-10 or NPO Hydralazine HCl 10 mg 11/07/24 11:00 11/09/24 02:52 Hydralazine Hcl 20 Mg/Ml Vial IV PUSH Not Given Q8H SALMA Ceftriaxone Sodium 1 gm in 50 mls @ 100 mls/hr 11/08/24 00:00 11/09/24 01:25 Rocephin 1 Gm/Ns 50 Ml IVPB Infused Q24H SALMA Infusion Metronidazole 500 mg in 100 mls @ 100 mls/hr 11/07/24 06:00 11/09/24 05:15 Flagyl 500 Mg/Iso Soln 100 Ml IVPB 100 mls/hr Q8H SALMA Administration Lactated Ringer's 1,000 mls @ 100 mls/hr 11/07/24 17:59 11/08/24 05:33 Lr - Lactated Ringers Iv IV CONT 100 mls/hr .Q10H SALMA Administration Ibuprofen 800 mg in 200 mls @ 400 mls/hr 11/07/24 17:59 11/09/24 00:10 Caldolor 800 Mg/200 Ml IVPB Infused Q6H PRN Infusion Breakthrough Pain Rated 1-3 or NPO Levothyroxine Sodium 75 mcg 11/07/24 10:25 11/09/24 05:12 Levothyroxine Sodium Inj 100 Mcg/5 Ml Vial IV PUSH 75 mcg DAILY@0630 SALMA Administration Naloxone HCl 0.1 mg 11/07/24 17:59 Naloxone Hcl 0.4 Mg/Ml Vial IV PUSH Q2M PRN Opiate Reversal Ondansetron HCl 4 mg 11/07/24 10:16 11/08/24 05:32 Ondansetron Inj 4 Mg/2 Ml Vial IV PUSH 4 mg Q6H PRN Administration Nausea And Vomiting Pantoprazole Sodium 40 mg 11/07/24 10:25 11/09/24 09:21 Pantoprazole Sodium Iv 40 Mg Vial IV PUSH 40 mg QAM SALMA Administration Radiology Results: ITS Impressions Abdomen/Pelvis CT 11/06/24 21:22 IMPRESSION: Focal areas of right middle lobe and right lower lobe chronic infection, inflammation, or aspiration. 5.1 cm left adrenal mass, previously met criteria for adenoma but now demonstrating interval growth that could reflect interval hemorrhage within an adenoma or different cell type. Indeterminate density 1.6 cm right renal lesion, also with interval growth. Recommend nonemergent MR of the abdomen without contrast to evaluate these lesions. Small bowel obstruction with herniation of a loop of distal ileum into an umbilical hernia. Mild inflammatory changes within the hernia sac. Fluid distended endometrial cavity with irregular intraluminal hyperdensity and gas, may represent endometrial hemorrhage, infectious material, or less likely a polyp. Correlate with any history of recent gynecologic procedure. Consider endometritis in the differential and pelvic ultrasound for further evaluation. Possible cystitis, correlate with urinalysis. Chest X-Ray 11/07/24 05:18 Impression: Possible 15 mm right apical pulmonary nodule versus confluence of shadows. Chest CT recommended to confirm or exclude pulmonary nodule. Abdomen X-Ray 11/07/24 05:24 Impression: NG tube in satisfactory position. Small bowel obstruction. Labs Labs: Laboratory Results - last 24 hr 11/08/24 11/09/24 11/09/24 11:40 06:29 07:30 WBC 13.1 H RBC 3.73 L Hgb 11.0 L Hct 34.5 L MCV 92.5 MCH 29.5 MCHC 31.9 L RDW 17.4 H Plt Count 235 MPV 12.5 H Immature Gran % (Auto) 0.3 Neut % (Auto) 89.0 H Lymph % (Auto) 7.6 L [place] % (Auto) 2.9 Eos % (Auto) 0.1 Baso % (Auto) 0.1 L Lymph # (Auto) 0.99 [place] # (Auto) 0.4 Eos # (Auto) 0.0 Baso # (Auto) 0.0 Abs Immat Gran (auto) 0.04 H Absolute Neuts (auto) 11.6 H Absolute Nucleated RBC 0.000 Nucleated RBC % 0.0 Sodium Potassium Chloride Carbon Dioxide Anion Gap BUN Creatinine Estim Creat Clear Calc Estimated GFR Glucose POC Capillary Glucose 75 76 Calcium Phosphorus Magnesium Total Bilirubin AST ALT Alkaline Phosphatase Total Protein Albumin 11/09/24 08:08 WBC RBC Hgb Hct MCV MCH MCHC RDW Plt Count MPV Immature Gran % (Auto) Neut % (Auto) Lymph % (Auto) [place] % (Auto) Eos % (Auto) Baso % (Auto) Lymph # (Auto) [place] # (Auto) Eos # (Auto) Baso # (Auto) Abs Immat Gran (auto) Absolute Neuts (auto) Absolute Nucleated RBC Nucleated RBC % Sodium 142 Potassium 4.0 Chloride 115 H Carbon Dioxide 19 L Anion Gap 8 BUN 39 H Creatinine 1.40 H Estim Creat Clear Calc 20 Estimated GFR 36 L Glucose 67 POC Capillary Glucose Calcium 8.1 L Phosphorus 3.5 Magnesium 2.5 H Total Bilirubin 0.7 AST 17 ALT 7 Alkaline Phosphatase 62 Total Protein 6.0 L Albumin 2.6 L
[2024-11-09] MEDS: hydrALAZINE HCL 20 MG/ML VIAL 10 MG IV PUSH ×2 (12:10→21:46)
[2024-11-09 12:41] LABS: Glucose Point of Care 74 mg/dl (65-105)
--- NOTE | 2024-11-09 12:45 | PM.IMPN ---
Progress Note: A&P Assessment and Plan (1) SBO (small bowel obstruction): Code(s): K56.609 - Unspecified intestinal obstruction, unspecified as to partial versus complete obstruction Status: Acute Assessment and Plan: Patient presents with abdominal pain and found to have SBO from incarcerated umbilical hernia. CT Abd showing diffuse small bowel dilation, transition point at the entrance of an umbilical hernia which contains a loop of nondilated distal ileum. No large bowel dilation. Normal appendix. Diverticulosis without diverticulitis. NGT placed. Repeat imaging showing SBO. Lactic normal. General surgery consulted and appreciate their input. Patient underwent repair 4 cm umbilical hernia, small bowel resection with anastomosis and appendectomy on 11/07/24 She has tolerated the procedure well. Pain controlled. Tolerating having NGT clamped and small amounts of oral intake. She is having coughing with liquid so ST evaluation performed. Speech recommended continuing ice chips and mildly thickened liquids when able. Currently just on ice chips. Will need MBS. (2) Incarcerated umbilical hernia: Code(s): K42.0 - Umbilical hernia with obstruction, without gangrene Status: Acute Assessment and Plan: As above. (3) [id number] kidney injury: Code(s): N17.9 - Acute kidney failure, unspecified; N18.9 - Chronic kidney disease, unspecified Status: Acute Assessment and Plan: BUN 70 and Cr 2.2 on admission. Baseline Cr 1.3-1.6 over the past year. CT scan with conrast showing no hydronephrosis or obstructing calcification; 1.6 cm indeterminate density left upper pole lesion (measured 1.5cm in January 2023); multiple bilateral subcentimeter renal hypodensities, too small to characterize; mild bladder wall edema possibly cystitis. UA consistent with UTI. Suspect dehydration and/or ATN and/or from infection causing the JC Cr better with IV fluids to 1.2. Follow and monitor UOP, electrolytes and renal fxn (4) Abnormal CT of the abdomen: Code(s): R93.5 - Abnormal findings on diagnostic imaging of other abdominal regions, including retroperitoneum Status: Acute Assessment and Plan: CXR showing possibly 15mm right apical pulm nodule. CT abd/pelvis showing RML and RLL bronchiectasis and bronchial wall thickening. Ground glass and centrilobular nodular opacities adjacent to the area of bronchiectasis in the right lower lobe. Influenza, RSV and COVID PCR negative. Also with left adrenal mass at 5.1cm that has grown since January 2023 Also noted with fluid distended endometrial cavity with irregular intraluminal hyperdensity and gas, may represent endometrial hemorrhage, infectious material, or less likely a polyp. Patient will need CT chest and pelvic US once acute problem is addressed. (5) UTI (urinary tract infection): Qualifiers: Hematuria presence: with hematuria Urinary tract infection type: acute cystitis Qualified Code(s): N30.01 - Acute cystitis with hematuria Code(s): N39.0 - Urinary tract infection, site not specified Status: Acute Assessment and Plan: UA is consistent with UTI. UCx collected. Rocephin started. Prior UTIs are normally august-sensitive. UCx growing Proteus sensitive to Rocephin (6) HTN (hypertension): Qualifiers: Hypertension type: essential hypertension Qualified Code(s): I10 - Essential (primary) hypertension Code(s): I10 - Essential (primary) hypertension Status: Acute Assessment and Plan: Patient's blood pressure was reviewed on 11/09 Blood pressure remains elevated at times probably related to being off her anti-HTN meds; not a lot of pain. She only takes losartan 50mg daily. Continue IV hydralazine scheduled since she remains NPO Plan Hypothyroidism - changed levothyroxine to IV DVT prophylaxis - lovenox Code status - DNR Subjective Date/time seen: 11/09/24 12:45 Interval history: 84yo female with RA, HTN PVD, COPD, hx of DVT and SBO here for abdominal pain. Slept poorly. Tolerating apple juice. no dysphagia. Flatus but no BMs. NGT clamped for about 2 hours now and no n/v. No CP or SOB. No abd pain. Cough is nonproductive Exam Narrative: AF 97.4 128/62 56 16 94% ra Gen - NARD HEENT - NGT secured and clamped Chest - lungs are clear anteriorly and in the flanks. nml RR CV - regular rate and rhythm. S1-S2. Abd - soft, +BS. Dressing clean and dry. drain in place wit serosang fluid in bulb. Ext - no pedal edema Psych - normal mood and affect. Skin - warm and dry. Objective Data Vital Signs Vital Signs: Vital Signs - 24 hr 11/08/24 15:44 11/08/24 19:44 11/08/24 20:00 Temperature 97.9 F 98.7 F Pulse Rate 55 L 59 L 59 L Respiratory Rate 18 14 14 Blood Pressure 136/54 L 139/47 L Pulse Oximetry 97 97 97 Oxygen Delivery Room Air 11/09/24 04:35 Temperature 97.4 F L Pulse Rate 56 L Respiratory Rate 16 Blood Pressure 128/62 Pulse Oximetry 94 Oxygen Delivery Intake/Output Intake/Output: Intake & Output 11/06/24 11/07/24 11/08/24 11/09/24 23:59 23:59 23:59 23:59 Intake Total 1999 750 1350 350 Output Total 900 1250 200 Balance 1999 -150 100 150 Meds/Results Medications: Active Medications Generic Name Dose Route Start Last Admin Trade Name Freq PRN Reason Stop Dose Admin Enoxaparin Sodium 30 mg 11/08/24 09:00 11/09/24 09:22 Enoxaparin 30 Mg/0.3 Ml Syringe SUB-Q 30 mg DAILY SALMA Administration Fentanyl Citrate 12.5 mcg 11/07/24 17:59 Fentanyl Citrate Inj (*Crx) 100 Mcg/2 Ml Vial IV PUSH Q2H PRN Breakthrough Pain Rated 4-6 or NPO Fentanyl Citrate 25 mcg 11/07/24 17:59 Fentanyl Citrate Inj (*Crx) 100 Mcg/2 Ml Vial IV PUSH Q2H PRN Breakthrough Pain Rated 7-10 or NPO Hydralazine HCl 10 mg 11/07/24 11:00 11/09/24 12:10 Hydralazine Hcl 20 Mg/Ml Vial IV PUSH 10 mg Q8H SALMA Administration Ceftriaxone Sodium 1 gm in 50 mls @ 100 mls/hr 11/08/24 00:00 11/09/24 01:25 Rocephin 1 Gm/Ns 50 Ml IVPB Infused Q24H SALMA Infusion Metronidazole 500 mg in 100 mls @ 100 mls/hr 11/07/24 06:00 11/09/24 05:15 Flagyl 500 Mg/Iso Soln 100 Ml IVPB 100 mls/hr Q8H SALMA Administration Lactated Ringer's 1,000 mls @ 100 mls/hr 11/07/24 17:59 11/08/24 05:33 Lr - Lactated Ringers Iv IV CONT 100 mls/hr .Q10H SALMA Administration Ibuprofen 800 mg in 200 mls @ 400 mls/hr 11/07/24 17:59 11/09/24 00:10 Caldolor 800 Mg/200 Ml IVPB Infused Q6H PRN Infusion Breakthrough Pain Rated 1-3 or NPO Levothyroxine Sodium 75 mcg 11/07/24 10:25 11/09/24 05:12 Levothyroxine Sodium Inj 100 Mcg/5 Ml Vial IV PUSH 75 mcg DAILY@0630 SALMA Administration Naloxone HCl 0.1 mg 11/07/24 17:59 Naloxone Hcl 0.4 Mg/Ml Vial IV PUSH Q2M PRN Opiate Reversal Ondansetron HCl 4 mg 11/07/24 10:16 11/08/24 05:32 Ondansetron Inj 4 Mg/2 Ml Vial IV PUSH 4 mg Q6H PRN Administration Nausea And Vomiting Pantoprazole Sodium 40 mg 11/07/24 10:25 11/09/24 09:21 Pantoprazole Sodium Iv 40 Mg Vial IV PUSH 40 mg QAM SALMA Administration Radiology Results: ITS Impressions Abdomen/Pelvis CT 11/06/24 21:22 IMPRESSION: Focal areas of right middle lobe and right lower lobe chronic infection, inflammation, or aspiration. 5.1 cm left adrenal mass, previously met criteria for adenoma but now demonstrating interval growth that could reflect interval hemorrhage within an adenoma or different cell type. Indeterminate density 1.6 cm right renal lesion, also with interval growth. Recommend nonemergent MR of the abdomen without contrast to evaluate these lesions. Small bowel obstruction with herniation of a loop of distal ileum into an umbilical hernia. Mild inflammatory changes within the hernia sac. Fluid distended endometrial cavity with irregular intraluminal hyperdensity and gas, may represent endometrial hemorrhage, infectious material, or less likely a polyp. Correlate with any history of recent gynecologic procedure. Consider endometritis in the differential and pelvic ultrasound for further evaluation. Possible cystitis, correlate with urinalysis. Chest X-Ray 11/07/24 05:18 Impression: Possible 15 mm right apical pulmonary nodule versus confluence of shadows. Chest CT recommended to confirm or exclude pulmonary nodule. Abdomen X-Ray 11/07/24 05:24 Impression: NG tube in satisfactory position. Small bowel obstruction. Labs Labs: Laboratory Results - last 24 hr 11/09/24 11/09/24 11/09/24 06:29 07:30 08:08 WBC 13.1 H RBC 3.73 L Hgb 11.0 L Hct 34.5 L MCV 92.5 MCH 29.5 MCHC 31.9 L RDW 17.4 H Plt Count 235 MPV 12.5 H Immature Gran % (Auto) 0.3 Neut % (Auto) 89.0 H Lymph % (Auto) 7.6 L [place] % (Auto) 2.9 Eos % (Auto) 0.1 Baso % (Auto) 0.1 L Lymph # (Auto) 0.99 [place] # (Auto) 0.4 Eos # (Auto) 0.0 Baso # (Auto) 0.0 Abs Immat Gran (auto) 0.04 H Absolute Neuts (auto) 11.6 H Absolute Nucleated RBC 0.000 Nucleated RBC % 0.0 Sodium 142 Potassium 4.0 Chloride 115 H Carbon Dioxide 19 L Anion Gap 8 BUN 39 H Creatinine 1.40 H Estim Creat Clear Calc 20 Estimated GFR 36 L Glucose 67 POC Capillary Glucose 76 Calcium 8.1 L Phosphorus 3.5 Magnesium 2.5 H Total Bilirubin 0.7 AST 17 ALT 7 Alkaline Phosphatase 62 Total Protein 6.0 L Albumin 2.6 L 11/09/24 12:10 WBC RBC Hgb Hct MCV MCH MCHC RDW Plt Count MPV Immature Gran % (Auto) Neut % (Auto) Lymph % (Auto) [place] % (Auto) Eos % (Auto) Baso % (Auto) Lymph # (Auto) [place] # (Auto) Eos # (Auto) Baso # (Auto) Abs Immat Gran (auto) Absolute Neuts (auto) Absolute Nucleated RBC Nucleated RBC % Sodium Potassium Chloride Carbon Dioxide Anion Gap BUN Creatinine Estim Creat Clear Calc Estimated GFR Glucose POC Capillary Glucose 74 Calcium Phosphorus Magnesium Total Bilirubin AST ALT Alkaline Phosphatase Total Protein Albumin
--- NOTE | 2024-11-09 17:26 | PC.NURSE ---
Pt was able to tolerate NG being clamped for 6 hours. Clear liquid diet order put in place. Ng tube will be removed
[2024-11-09 20:45] LABS: Glucose Point of Care 117 mg/dl (65-105)
[2024-11-09 21:39] VITALS: BP 142/62; PULSE 56; RESP 12; TEMP 36.5; O2SAT 95
[2024-11-09 22:22] LABS: Glucose Point of Care 166 mg/dl (65-105)
[2024-11-09] MEDS: MELATONIN 5 MG TABLET 10 MG PO (22:35)
[2024-11-10 02:47] LABS: Toxigenic C. Diff NEGATIVE (NEGATIVE)
[2024-11-10] MEDS: LEVOTHYROXINE SODIUM INJ 100 MCG/5 ML VIAL 75 MCG IV PUSH (06:06)
[2024-11-10] MEDS: metroNIDAZOLE 500 MG/ISO 100ML 500 MG/100 ML BAG 100 MG IVPB ×3 (06:06→21:45)
[2024-11-10 06:21] VITALS: BP 126/56; PULSE 56; RESP 12; TEMP 36.6; O2SAT 93
[2024-11-10] MEDS: ONDANSETRON INJ 4 MG/2 ML VIAL IV PUSH (07:04)
[2024-11-10 07:29] LABS: Anion Gap 1 mmol/L (4-12); Blood Urea Nitrogen 32 mg/dL (7-17); Calcium 7.8 mg/dL (8.4-10.2); Carbon Dioxide 26 mmol/L (22-30); Chloride 110 mmol/L (98-107); Estimated CRCL calculation 22 ml/min; Estimated Glomerular Filt Rate 39; Glucose 108 mg/dL (65-110); Potassium 2.9 mmol/L (3.4-5.0); Sodium 137 mmol/L (137-145)
--- NOTE | 2024-11-10 09:50 | PCPTNOTE ---
Attempted at 950, but patient states she wants to wait one more day, but will try to work with physical therapy tomorrow.
[2024-11-10] MEDS: hydrALAZINE HCL 20 MG/ML VIAL 10 MG IV PUSH (11:12)
[2024-11-10] MEDS: ENOXAPARIN 30 MG/0.3 ML SYRINGE SUB-Q (11:13)
[2024-11-10] MEDS: PANTOPRAZOLE SODIUM IV 40 MG VIAL IV PUSH (11:13)
[2024-11-10] MEDS: POTASSIUM CHLORIDE INJ 40 MEQ in SODIUM CHLORIDE 0.9% IV 500 ML 130 MEQ IVPB (11:13)
--- NOTE | 2024-11-10 12:04 | P.PNGS_ITS ---
Progress Note: A&P Assessment and Plan (1) Incarcerated umbilical hernia: Code(s): K42.0 - Umbilical hernia with obstruction, without gangrene Status: Acute Assessment and Plan: doing well, cont routine postop care, ADAT, OOB/IS Subjective Subjective Date/Time Seen: 11/10/24 12:04 Interval history: feels good, chandler clears, + bowel fxn Review of Systems Review of Systems: All systems reviewed & are unremarkable except as noted in HPI and below Exam Const: General: cooperative, comfortable and no acute distress Resp: Auscultation: clear to auscultation bilaterally Cardio: Rate: regular rate Rhythm: regular rhythm GI: Inspection: normal to inspection, distended and incision GI Palp: Yes abdominal tenderness, Yes Soft to palpation and Yes Tenderness to palpation present (GI) Other: LUIS ANGEL c minimal s/s output Objective Data Vital Signs Vital Signs: Vital Signs - 24 hr 11/09/24 20:00 11/09/24 21:39 11/10/24 06:21 Temperature 36.5 C 36.6 C Pulse Rate 56 L 56 L Respiratory Rate 12 12 Blood Pressure 142/62 H 126/56 L Pulse Oximetry 95 93 Oxygen Delivery Room Air Intake/Output Intake/Output: Intake & Output 11/07/24 11/08/24 11/09/24 11/10/24 23:59 23:59 23:59 23:59 Intake Total 750 1350 2128 270 Output Total 900 1250 230 8 Balance -518 499 2903 262 Meds/Results Medications: Active Medications Generic Name Dose Route Start Last Admin Trade Name Freq PRN Reason Stop Dose Admin Enoxaparin Sodium 30 mg 11/08/24 09:00 11/10/24 11:13 Enoxaparin 30 Mg/0.3 Ml Syringe SUB-Q 30 mg DAILY SALMA Administration Fentanyl Citrate 12.5 mcg 11/07/24 17:59 Fentanyl Citrate Inj (*Crx) 100 Mcg/2 Ml Vial IV PUSH Q2H PRN Breakthrough Pain Rated 4-6 or NPO Fentanyl Citrate 25 mcg 11/07/24 17:59 Fentanyl Citrate Inj (*Crx) 100 Mcg/2 Ml Vial IV PUSH Q2H PRN Breakthrough Pain Rated 7-10 or NPO Hydralazine HCl 10 mg 11/07/24 11:00 11/10/24 11:12 Hydralazine Hcl 20 Mg/Ml Vial IV PUSH 10 mg Q8H SALMA Administration Ceftriaxone Sodium 1 gm in 50 mls @ 100 mls/hr 11/08/24 00:00 11/09/24 23:29 Rocephin 1 Gm/Ns 50 Ml IVPB 100 mls/hr Q24H SALMA Administration Metronidazole 500 mg in 100 mls @ 100 mls/hr 11/07/24 06:00 11/10/24 06:06 Flagyl 500 Mg/Iso Soln 100 Ml IVPB 100 mls/hr Q8H SALMA Administration Lactated Ringer's 1,000 mls @ 100 mls/hr 11/07/24 17:59 11/09/24 15:33 Lr - Lactated Ringers Iv IV CONT Infused .Q10H SALMA Infusion Ibuprofen 800 mg in 200 mls @ 400 mls/hr 11/07/24 17:59 11/09/24 00:10 Caldolor 800 Mg/200 Ml IVPB Infused Q6H PRN Infusion Breakthrough Pain Rated 1-3 or NPO Levothyroxine Sodium 75 mcg 11/07/24 10:25 11/10/24 06:06 Levothyroxine Sodium Inj 100 Mcg/5 Ml Vial IV PUSH 75 mcg DAILY@0630 SALMA Administration Melatonin 10 mg 11/09/24 22:07 11/09/24 22:35 Melatonin 5 Mg Tablet PO 10 mg HS PRN Administration Insomnia Naloxone HCl 0.1 mg 11/07/24 17:59 Naloxone Hcl 0.4 Mg/Ml Vial IV PUSH Q2M PRN Opiate Reversal Ondansetron HCl 4 mg 11/07/24 10:16 11/10/24 07:04 Ondansetron Inj 4 Mg/2 Ml Vial IV PUSH 4 mg Q6H PRN Administration Nausea And Vomiting Pantoprazole Sodium 40 mg 11/07/24 10:25 11/10/24 11:13 Pantoprazole Sodium Iv 40 Mg Vial IV PUSH 40 mg QAM SALMA Administration Radiology Results: ITS Impressions Abdomen/Pelvis CT 11/06/24 21:22 IMPRESSION: Focal areas of right middle lobe and right lower lobe chronic infection, inflammation, or aspiration. 5.1 cm left adrenal mass, previously met criteria for adenoma but now demonstrating interval growth that could reflect interval hemorrhage within an adenoma or different cell type. Indeterminate density 1.6 cm right renal lesion, also with interval growth. Recommend nonemergent MR of the abdomen without contrast to evaluate these lesions. Small bowel obstruction with herniation of a loop of distal ileum into an u mbilical hernia. Mild inflammatory changes within the hernia sac. Fluid distended endometrial cavity with irregular intraluminal hyperdensity and gas, may represent endometrial hemorrhage, infectious material, or less likely a polyp. Correlate with any history of recent gynecologic procedure. Consider endometritis in the differential and pelvic ultrasound for further evaluation. Possible cystitis, correlate with urinalysis. Chest X-Ray 11/07/24 05:18 Impression: Possible 15 mm right apical pulmonary nodule versus confluence of shadows. Chest CT recommended to confirm or exclude pulmonary nodule. Abdomen X-Ray 11/07/24 05:24 Impression: NG tube in satisfactory position. Small bowel obstruction. Labs Labs: Laboratory Results - last 24 hr 11/09/24 11/09/24 11/09/24 12:10 18:44 21:42 Sodium Potassium Chloride Carbon Dioxide Anion Gap BUN Creatinine Estim Creat Clear Calc Estimated GFR Glucose POC Capillary Glucose 74 117 H 166 H Calcium C. difficile (PCR) 11/10/24 11/10/24 01:53 06:49 Sodium 137 Potassium 2.9 L Chloride 110 H Carbon Dioxide 26 Anion Gap 1 L BUN 32 H Creatinine 1.30 H Estim Creat Clear Calc 22 Estimated GFR 39 L Glucose 108 POC Capillary Glucose Calcium 7.8 L C. difficile (PCR) Negative
[2024-11-10 12:09] LABS: Glucose Point of Care 153 mg/dl (65-105)
--- NOTE | 2024-11-10 14:25 | PM.IMPN ---
Progress Note: A&P Assessment and Plan (1) SBO (small bowel obstruction): Code(s): K56.609 - Unspecified intestinal obstruction, unspecified as to partial versus complete obstruction Status: Acute Assessment and Plan: Patient presents with abdominal pain and found to have SBO from incarcerated umbilical hernia. CT Abd showing diffuse small bowel dilation, transition point at the entrance of an umbilical hernia which contains a loop of nondilated distal ileum. No large bowel dilation. Normal appendix. Diverticulosis without diverticulitis. NGT placed. Repeat imaging showing SBO. Lactic normal. General surgery consulted and appreciate their input. Patient underwent repair 4 cm umbilical hernia, small bowel resection with anastomosis and appendectomy on 11/07/24 She has tolerated the procedure well. Pain controlled. Bowel fxn better. NGT removed. ADAT She is having coughing with liquid so ST evaluation performed. Speech recommended continuing ice chips and mildly thickened liquids when able. Will order MBS for tomorrow. (2) Incarcerated umbilical hernia: Code(s): K42.0 - Umbilical hernia with obstruction, without gangrene Status: Acute Assessment and Plan: As above. (3) [id number] kidney injury: Code(s): N17.9 - Acute kidney failure, unspecified; N18.9 - Chronic kidney disease, unspecified Status: Acute Assessment and Plan: BUN 70 and Cr 2.2 on admission. Baseline Cr 1.3-1.6 over the past year. CT scan with conrast showing no hydronephrosis or obstructing calcification; 1.6 cm indeterminate density left upper pole lesion (measured 1.5cm in January 2023); multiple bilateral subcentimeter renal hypodensities, too small to characterize; mild bladder wall edema possibly cystitis. UA consistent with UTI. Suspect dehydration and/or ATN and/or from infection causing the JC Cr better with IV fluids Follow and monitor UOP, electrolytes and renal fxn (4) Abnormal CT of the abdomen: Code(s): R93.5 - Abnormal findings on diagnostic imaging of other abdominal regions, including retroperitoneum Status: Acute Assessment and Plan: CXR showing possibly 15mm right apical pulm nodule. CT abd/pelvis showing RML and RLL bronchiectasis and bronchial wall thickening. Ground glass and centrilobular nodular opacities adjacent to the area of bronchiectasis in the right lower lobe. Influenza, RSV and COVID PCR negative. Also with left adrenal mass at 5.1cm that has grown since January 2023 Also noted with fluid distended endometrial cavity with irregular intraluminal hyperdensity and gas, may represent endometrial hemorrhage, infectious material, or less likely a polyp. Patient will need CT chest and pelvic US. Start workup for bronchiectasis (5) UTI (urinary tract infection): Qualifiers: Hematuria presence: with hematuria Urinary tract infection type: acute cystitis Qualified Code(s): N30.01 - Acute cystitis with hematuria Code(s): N39.0 - Urinary tract infection, site not specified Status: Acute Assessment and Plan: UA is consistent with UTI. UCx collected. Rocephin started. Prior UTIs are normally august-sensitive. UCx growing Proteus sensitive to Rocephin (6) HTN (hypertension): Qualifiers: Hypertension type: essential hypertension Qualified Code(s): I10 - Essential (primary) hypertension Code(s): I10 - Essential (primary) hypertension Status: Acute Assessment and Plan: Patient's blood pressure was reviewed on 11/10 Blood pressure better controlled Resume oral meds Plan Hypothyroidism - resume oral meds DVT prophylaxis - lovenox Code status - DNR Subjective Date/time seen: 11/10/24 14:25 Interval history: 84yo female with RA, HTN PVD, COPD, hx of DVT and SBO here for abdominal pain. NGT out. +BMs. Increasing abd pain today. No Cp or SOB. nausea but no vomiting. Exam Narrative: AF 97.8 126/56 56 12 93% ra Gen - NARD Chest - scattered expiratory wheezes CV - RRR. S1-S2. Abd - soft, +BS. Dressing clean and dry. drain in place with serosang fluid in bulb. Ext - no pedal edema Psych - normal mood and affect. Skin - warm and dry. Objective Data Vital Signs Vital Signs: Vital Signs - 24 hr 11/09/24 20:00 11/09/24 21:39 11/10/24 06:21 Temperature 97.7 F 97.8 F Pulse Rate 56 L 56 L Respiratory Rate 12 12 Blood Pressure 142/62 H 126/56 L Pulse Oximetry 95 93 Oxygen Delivery Room Air Intake/Output Intake/Output: Intake & Output 11/07/24 11/08/24 11/09/24/05/25 23:59 23:59 23:59 23:59 Intake Total 750 1350 2128 510 Output Total 900 1250 230 8 Balance -563 743 5929 502 Meds/Results Medications: Active Medications Generic Name Dose Route Start Last Admin Trade Name Freq PRN Reason Stop Dose Admin Enoxaparin Sodium 30 mg 11/08/24 09:00 11/10/24 11:13 Enoxaparin 30 Mg/0.3 Ml Syringe SUB-Q 30 mg DAILY SALMA Administration Fentanyl Citrate 12.5 mcg 11/07/24 17:59 Fentanyl Citrate Inj (*Crx) 100 Mcg/2 Ml Vial IV PUSH Q2H PRN Breakthrough Pain Rated 4-6 or NPO Fentanyl Citrate 25 mcg 11/07/24 17:59 Fentanyl Citrate Inj (*Crx) 100 Mcg/2 Ml Vial IV PUSH Q2H PRN Breakthrough Pain Rated 7-10 or NPO Hydralazine HCl 10 mg 11/07/24 11:00 11/10/24 11:12 Hydralazine Hcl 20 Mg/Ml Vial IV PUSH 10 mg Q8H SALMA Administration Ceftriaxone Sodium 1 gm in 50 mls @ 100 mls/hr 11/08/24 00:00 11/09/24 23:29 Rocephin 1 Gm/Ns 50 Ml IVPB 100 mls/hr Q24H SALMA Administration Metronidazole 500 mg in 100 mls @ 100 mls/hr 11/07/24 06:00 11/10/24 06:06 Flagyl 500 Mg/Iso Soln 100 Ml IVPB 100 mls/hr Q8H SALMA Administration Lactated Ringer's 1,000 mls @ 100 mls/hr 11/07/24 17:59 11/09/24 15:33 Lr - Lactated Ringers Iv IV CONT Infused .Q10H SALMA Infusion Ibuprofen 800 mg in 200 mls @ 400 mls/hr 11/07/24 17:59 11/09/24 00:10 Caldolor 800 Mg/200 Ml IVPB Infused Q6H PRN Infusion Breakthrough Pain Rated 1-3 or NPO Levothyroxine Sodium 75 mcg 11/07/24 10:25 11/10/24 06:06 Levothyroxine Sodium Inj 100 Mcg/5 Ml Vial IV PUSH 75 mcg DAILY@0630 SALMA Administration Melatonin 10 mg 11/09/24 22:07 11/09/24 22:35 Melatonin 5 Mg Tablet PO 10 mg HS PRN Administration Insomnia Naloxone HCl 0.1 mg 11/07/24 17:59 Naloxone Hcl 0.4 Mg/Ml Vial IV PUSH Q2M PRN Opiate Reversal Ondansetron HCl 4 mg 11/07/24 10:16 11/10/24 07:04 Ondansetron Inj 4 Mg/2 Ml Vial IV PUSH 4 mg Q6H PRN Administration Nausea And Vomiting Pantoprazole Sodium 40 mg 11/07/24 10:25 11/10/24 11:13 Pantoprazole Sodium Iv 40 Mg Vial IV PUSH 40 mg QAM SALMA Administration Radiology Results: ITS Impressions Abdomen/Pelvis CT 11/06/24 21:22 IMPRESSION: Focal areas of right middle lobe and right lower lobe chronic infection, inflammation, or aspiration. 5.1 cm left adrenal mass, previously met criteria for adenoma but now demonstrating interval growth that could reflect interval hemorrhage within an adenoma or different cell type. Indeterminate density 1.6 cm right renal lesion, also with interval growth. Recommend nonemergent MR of the abdomen without contrast to evaluate these lesions. Small bowel obstruction with herniation of a loop of distal ileum into an umbilical hernia. Mild inflammatory changes within the hernia sac. Fluid distended endometrial cavity with irregular intraluminal hyperdensity and gas, may represent endometrial hemorrhage, infectious material, or less likely a polyp. Correlate with any history of recent gynecologic procedure. Consider endometritis in the differential and pelvic ultrasound for further evaluation. Possible cystitis, correlate with urinalysis. Chest X-Ray 11/07/24 05:18 Impression: Possible 15 mm right apical pulmonary nodule versus confluence of shadows. Chest CT recommended to confirm or exclude pulmonary nodule. Abdomen X-Ray 11/07/24 05:24 Impression: NG tube in satisfactory position. Small bowel obstruction. Labs Labs: Laboratory Results - last 24 hr 11/09/24 11/09/24 11/10/24 18:44 21:42 01:53 Sodium Potassium Chloride Carbon Dioxide Anion Gap BUN Creatinine Estim Creat Clear Calc Estimated GFR Glucose POC Capillary Glucose 117 H 166 H Calcium C. difficile (PCR) Negative 11/10/24 11/10/24 06:49 11:55 Sodium 137 Potassium 2.9 L Chloride 110 H Carbon Dioxide 26 Anion Gap 1 L BUN 32 H Creatinine 1.30 H Estim Creat Clear Calc 22 Estimated GFR 39 L Glucose 108 POC Capillary Glucose 153 H Calcium 7.8 L C. difficile (PCR)
[2024-11-10 14:58] VITALS: BP 122/63; PULSE 65; RESP 14; TEMP 36.3; O2SAT 97
[2024-11-10 18:08] LABS: Glucose Point of Care 112 mg/dl (65-105)
[2024-11-10] MEDS: ATORVASTATIN 20 MG TABLET PO (18:50)
[2024-11-10] MEDS: PANTOPRAZOLE 40 MG TABLET PO (20:15)
[2024-11-10] MEDS: MELATONIN 5 MG TABLET 10 MG PO (20:15)
[2024-11-10] MEDS: LACTATED RINGERS 1,000 ML 100 ML IV CONT (20:16)
[2024-11-10] MEDS: IBUPROFEN IV 800 MG/200 ML 800 MG/200 ML BAG 400 MG IVPB (20:16)
[2024-11-10] MEDS: LOSARTAN POTASSIUM 50 MG TABLET PO (20:16)
[2024-11-10 22:00] VITALS: BP 133/67; PULSE 58; RESP 18; TEMP 36.8; O2SAT 94
[2024-11-11] MEDS: metroNIDAZOLE 500 MG/ISO 100ML 500 MG/100 ML BAG 100 MG IVPB ×3 (05:35→21:49)
[2024-11-11] MEDS: LEVOTHYROXINE SODIUM 150 MCG TABLET PO (05:35)
[2024-11-11 06:00] VITALS: BP 126/61; PULSE 59; RESP 18; TEMP 36.6; O2SAT 93
[2024-11-11 06:50] LABS: Basophils Percent Auto 0.1 % (0.2-1.2); Eosinophils Percent Auto 0.4 % (0-4.4); Hematocrit 31.5 % (37.0-47.0); Hemoglobin 10.3 g/dL (12.0-15.0); Immature Granulocyte Absolute 0.06 K/mm3 (0.00-0.031); Immature Granulocyte Percent A 0.6 % (0-0.5); Lymphocytes Absolute Auto 0.98 K/mm3 (0.9-3.2); Lymphocytes Percent Auto 9.6 % (18.3-44.2); Mean Corpuscular HGB Conc 32.7 g/dl (32-36); Mean Corpuscular Hemoglobin 29.5 pg (26-34); Mean Corpuscular Volume 90.3 fl (80-100); Mean Platelet Volume 12.9 fl (7.4-10.4); Monocytes Absolute Auto 0.3 K/mm3 (0.1-0.6); Monocytes Percent Auto 3.3 % (2.6-8.5); Neutrophils Absolute Auto 8.8 K/mm3 (1.3-6.7); Platelet Count Result 219 k/mm3 (150-375); Red Blood Count 3.49 M/mm3 (4.2-5.4); Red Cell Distribution Width 17.2 % (11.5-14.5); White Blood Count 10.3 K/mm3 (4.5-10.0)
[2024-11-11 07:02] LABS: Alanine Aminotransferase 8 U/L (6-35); Alkaline Phosphatase 49 U/L (38-126); Anion Gap -2 mmol/L (4-12); Aspartate Amino Transferase 12 U/L (14-36); Bilirubin,Total 0.5 mg/dL (0.2-1.3); Blood Urea Nitrogen 24 mg/dL (7-17); Calcium 7.5 mg/dL (8.4-10.2); Carbon Dioxide 25 mmol/L (22-30); Chloride 114 mmol/L (98-107); Estimated CRCL calculation 26 ml/min; Estimated Glomerular Filt Rate 47; Glucose 99 mg/dL (65-110); Magnesium 1.7 mg/dL (1.6-2.3); Potassium 3.4 mmol/L (3.4-5.0); Sodium 137 mmol/L (137-145)
[2024-11-11 07:09] LABS: Immunoglobulin A 412 mg/dL (70-400); Immunoglobulin G 1159 mg/dL (700-1600); Immunoglobulin M 84 mg/dL (40-230); Rheumatoid Factor 45.8 IU/ML (<12)
[2024-11-11] MEDS: MAGNESIUM SULF 2 GM/WATER 50ML 2 GM/50 ML BAG IVPB (09:31)
[2024-11-11] MEDS: ENOXAPARIN 30 MG/0.3 ML SYRINGE SUB-Q (09:31)
[2024-11-11] MEDS: PANTOPRAZOLE 40 MG TABLET PO ×2 (09:32→21:49)
[2024-11-11] MEDS: POTASSIUM CHLORIDE 20 MEQ PACKET (FOR LIQUID) 40 MEQ PO (09:32)
[2024-11-11] MEDS: DONEPEZIL HCL 5 MG TABLET 10 MG PO (09:32)
--- NOTE | 2024-11-11 10:58 | PM.PNGS ---
Progress Note: A&P Assessment and Plan (1) S/P small bowel resection: Code(s): Z90.49 - Acquired absence of other specified parts of digestive tract Status: Acute Assessment and Plan: Bowel function has returned. In fact patient having diarrhea. Wants solid food. Patient having modified swallow today. Will try low-fiber diet in addition to thickened liquids. Wound healing okay, dry eschar over umbilicus should heal. Continue PT OT (2) History of umbilical hernia repair: Code(s): Z98.890 - Other specified postprocedural states; Z87.19 - Personal history of other diseases of the digestive system Status: Acute Assessment and Plan: Repair intact. See above (3) SBO (small bowel obstruction): Code(s): K56.609 - Unspecified intestinal obstruction, unspecified as to partial versus complete obstruction Status: Acute Assessment and Plan: Resolved with surgery. Bowel function has returned. (4) Incarcerated umbilical hernia: Code(s): K42.0 - Umbilical hernia with obstruction, without gangrene Status: Acute Assessment and Plan: Repaired, no mesh. Repair intact. (5) Acute diarrhea: Code(s): R19.7 - Diarrhea, unspecified Status: Acute Assessment and Plan: Extreme number of bowel movements recorded yesterday. Still having loose stools, hopefully not as bad. Observe for now (6) Left adrenal mass: Code(s): E27.8 - Other specified disorders of adrenal gland Status: Chronic Assessment and Plan: 4.8 cm. Consider evaluation for hormonal secretion. Subjective Subjective Date/Time Seen: 11/11/24 10:58 Post Op day: 4 Patient reports: feels better, pain is less, tolerating liquids well, diarrhea and afebrile Exam Const: General: comfortable and no acute distress GI: Inspection: non-distended, incision (Dry, healing. Umbilicus forming dry eschar, no drainage) and no visible herniation GI Palp: Yes Soft to palpation, Yes Tenderness to palpation present (GI), No Guarding due to palpation present (GI) and No Rebound tenderness present Auscultation: normal bowel sounds Extrem: General: no calf tenderness and no edema Objective Data Vital Signs Vital Signs: Vital Signs - 24 hr 11/10/24 11:13 11/10/24 14:58 11/10/24 20:00 Temperature 36.3 C L Pulse Rate 65 Respiratory Rate 14 Blood Pressure 122/63 Pulse Oximetry 97 Oxygen Delivery Room Air Room Air 11/10/24 22:00 11/11/24 06:00 Temperature 36.8 C 36.6 C Pulse Rate 58 L 59 L Respiratory Rate 18 18 Blood Pressure 133/67 126/61 Pulse Oximetry 94 93 Oxygen Delivery Intake/Output Intake/Output: Intake & Output 11/08/24 11/09/24 11/10/24 11/11/24 23:59 23:59 23:59 23:59 Intake Total 1350 2178 1970 1290 Output Total 1250 230 108 Balance 100 1948 1862 1290 Meds/Results Medications: Active Medications Generic Name Dose Route Start Last Admin Trade Name Freq PRN Reason Stop Dose Admin Acetaminophen 500 mg 11/11/24 10:56 Acetaminophen 500 Mg Tablet PO Q6H PRN Pain Rated 1-3 Atorvastatin Calcium 20 mg 11/10/24 18:00 11/10/24 18:50 Atorvastatin 20 Mg Tablet PO 20 mg QPM SALMA Administration Donepezil HCl 10 mg 11/11/24 09:00 11/11/24 09:32 Donepezil Hcl 5 Mg Tablet PO 10 mg DAILY SALMA Administration Enoxaparin Sodium 30 mg 11/08/24 09:00 11/11/24 09:31 Enoxaparin 30 Mg/0.3 Ml Syringe SUB-Q 30 mg DAILY SALMA Administration Fentanyl Citrate 12.5 mcg 11/07/24 17:59 Fentanyl Citrate Inj (*Crx) 100 Mcg/2 Ml Vial IV PUSH Q2H PRN Breakthrough Pain Rated 4-6 or NPO Fentanyl Citrate 25 mcg 11/07/24 17:59 Fentanyl Citrate Inj (*Crx) 100 Mcg/2 Ml Vial IV PUSH Q2H PRN Breakthrough Pain Rated 7-10 or NPO Ceftriaxone Sodium 1 gm in 50 mls @ 100 mls/hr 11/08/24 00:00 11/11/24 00:56 Rocephin 1 Gm/Ns 50 Ml IVPB Infused Q24H SALMA Infusion Metronidazole 500 mg in 100 mls @ 100 mls/hr 11/07/24 06:00 11/11/24 05:35 Flagyl 500 Mg/Iso Soln 100 Ml IVPB 100 mls/hr Q8H SALMA Administration Lactated Ringer's 1,000 mls @ 60 mls/hr 11/07/24 17:59 11/11/24 09:31 Lr - Lactated Ringers Iv IV CONT Infused .[id number] SALMA Infusion Ibuprofen 800 mg in 200 mls @ 400 mls/hr 11/07/24 17:59 11/10/24 20:46 Caldolor 800 Mg/200 Ml IVPB Infused Q6H PRN Infusion Breakthrough Pain Rated 1-3 or NPO Levothyroxine Sodium 150 mcg 11/11/24 06:30 11/11/24 05:35 Levothyroxine Sodium 150 Mcg Tablet PO 150 mcg DAILY@0630 SALMA Administration Losartan Potassium 50 mg 11/10/24 21:00 11/10/24 20:16 Losartan Potassium 50 Mg Tablet PO 50 mg QHS SALMA Administration Melatonin 10 mg 11/10/24 14:41 11/10/24 20:15 Melatonin 5 Mg Tablet PO 10 mg HS PRN Administration Insomnia Naloxone HCl 0.1 mg 11/07/24 17:59 Naloxone Hcl 0.4 Mg/Ml Vial IV PUSH Q2M PRN Opiate Reversal Pantoprazole Sodium 40 mg 11/10/24 21:00 11/11/24 09:32 Pantoprazole 40 Mg Tablet PO 40 mg Q12HR SALMA Administration Tramadol HCl 50 mg 11/11/24 10:56 Tramadol Hcl (*Crx) 50 Mg Tablet PO Q4H PRN Pain Rated 4-6 Radiology Results: ITS Impressions Abdomen/Pelvis CT 11/06/24 21:22 IMPRESSION: Focal areas of right middle lobe and right lower lobe chronic infection, inflammation, or aspiration. 5.1 cm left adrenal mass, previously met criteria for adenoma but now demonstrating interval growth that could reflect interval hemorrhage within an adenoma or different cell type. Indeterminate density 1.6 cm right renal lesion, also with interval growth. Recommend nonemergent MR of the abdomen without contrast to evaluate these lesions. Small bowel obstruction with herniation of a loop of distal ileum into an umbilical hernia. Mild inflammatory changes within the hernia sac. Fluid distended endometrial cavity with irregular intraluminal hyperdensity and gas, may represent endometrial hemorrhage, infectious material, or less likely a polyp. Correlate with any history of recent gynecologic procedure. Consider endometritis in the differential and pelvic ultrasound for further evaluation. Possible cystitis, correlate with urinalysis. Chest X-Ray 11/07/24 05:18 Impression: Possible 15 mm right apical pulmonary nodule versus confluence of shadows. Chest CT recommended to confirm or exclude pulmonary nodule. Abdomen X-Ray 11/07/24 05:24 Impression: NG tube in satisfactory position. Small bowel obstruction. High Resolution CT 11/11/24 06:01 Impression: Moderate right pleural effusion and small left pleural effusion. Extensive presumed right lower lobe atelectasis versus possibly pneumonia. Partial left lower lobe atelectasis. Mild emphysema in the upper lobes. 4.8 x 4.0 cm heterogeneous left adrenal mass, similar to recent prior abdominal pelvic CT. Neoplastic/metastatic lesion is a consideration, versus acute adrenal hemorrhage/hematoma. Extensive wall thickening of the stomach and proximal duodenum. Correlate for infectious/inflammatory gastritis/duodenitis. Labs Labs: Laboratory Results - last 24 hr 11/10/24 11/10/24 11/11/24 11:55 17:56 06:16 WBC 10.3 H RBC 3.49 L Hgb 10.3 L Hct 31.5 L MCV 90.3 MCH 29.5 MCHC 32.7 RDW 17.2 H Plt Count 219 MPV 12.9 H Immature Gran % (Auto) 0.6 H Neut % (Auto) 86.0 H Lymph % (Auto) 9.6 L [place] % (Auto) 3.3 Eos % (Auto) 0.4 Baso % (Auto) 0.1 L Lymph # (Auto) 0.98 [place] # (Auto) 0.3 Eos # (Auto) 0.0 Baso # (Auto) 0.0 Abs Immat Gran (auto) 0.06 H Absolute Neuts (auto) 8.8 H Absolute Nucleated RBC 0.000 Nucleated RBC % 0.0 Sodium 137 Potassium 3.4 Chloride 114 H Carbon Dioxide 25 Anion Gap -2 L BUN 24 H Creatinine 1.10 H Estim Creat Clear Calc 26 Estimated GFR 47 L Glucose 99 POC Capillary Glucose 153 H 112 H Calcium 7.5 L Magnesium 1.7 Total Bilirubin 0.5 AST 12 L ALT 8 Alkaline Phosphatase 49 Total Protein 5.0 L Albumin 2.0 L IgG 1159 IgA 412 H IgM 84 Rheumatoid Factor 45.8
[2024-11-11 14:00] VITALS: BP 146/67; PULSE 61; RESP 16; TEMP 35.8; O2SAT 91
[2024-11-11] MEDS: ATORVASTATIN 20 MG TABLET PO (17:08)
--- NOTE | 2024-11-11 18:05 | PCSTNOTE ---
Please refer to the Modified Barium Swallow Evaluation in the EMR. Pt was seen for a swallow evaluation; per the provider (Dr Paige), she is coughing with thin liquids while he is in her room; pt was very anxious during testing. She was seated for a lateral view and presented with 5cc of thin liquid barium via spoon, pudding consistency barium via a spoon, and uncontrolled thin liquid barium. This was presented via a cup & straw. Pt refused mixed liquid/solid consistency via spoon & the cracker coated with barium pudding via spoon. Therefore for the puree and liquid trials, oral preparatory and oral phase symptoms: none. Pharyngeal phase symptoms: none. Esophageal stage symptoms: none. No laryngeal penetration or aspiration occurred. Impressions: Normal swallow ability but testing was limited as pt refused solids Recommendation: after discussion with provider it was decided to start pt on a level 5 minced and moist diet with regular liquids; occasional supervision recommended No further ST is warranted at this time.
--- NOTE | 2024-11-11 19:44 | P.PNIM_ITS ---
Progress Note: A&P Assessment and Plan (1) SBO (small bowel obstruction): Code(s): K56.609 - Unspecified intestinal obstruction, unspecified as to partial versus complete obstruction Status: Acute Assessment and Plan: Patient presents with abdominal pain and found to have SBO from incarcerated umbilical hernia. CT Abd showing diffuse small bowel dilation, transition point at the entrance of an umbilical hernia which contains a loop of nondilated distal ileum. No large bowel dilation. Normal appendix. Diverticulosis without diverticulitis. NGT placed. Repeat imaging showing SBO. Lactic normal. General surgery consulted and appreciate their input. Patient underwent repair 4 cm umbilical hernia, small bowel resection with anastomosis and appendectomy on 11/07/24 She has tolerated the procedure well. Pain controlled. Bowel fxn better. NGT removed. ADAT She is having coughing with liquid so ST evaluation performed. Speech therapy evaluation was incomplete but they felt patient could safely proceed with minced and moist diet. Did well with thin liquids and did not need thickener. Will adjust diet. (2) Incarcerated umbilical hernia: Code(s): K42.0 - Umbilical hernia with obstruction, without gangrene Status: Acute Assessment and Plan: As above. (3) [id number] kidney injury: Code(s): N17.9 - Acute kidney failure, unspecified; N18.9 - Chronic kidney disease, unspecified Status: Acute Assessment and Plan: BUN 70 and Cr 2.2 on admission. Baseline Cr 1.3-1.6 over the past year. CT scan with conrast showing no hydronephrosis or obstructing calcification; 1.6 cm indeterminate density left upper pole lesion (measured 1.5cm in January 2023); multiple bilateral subcentimeter renal hypodensities, too small to characterize; mild bladder wall edema possibly cystitis. UA consistent with UTI. Suspect dehydration and/or ATN and/or from infection causing the JC Cr better with IV fluids Follow and monitor UOP, electrolytes and renal fxn (4) Abnormal CT of the abdomen: Code(s): R93.5 - Abnormal findings on diagnostic imaging of other abdominal regions, including retroperitoneum Status: Acute Assessment and Plan: CXR showing possibly 15mm right apical pulm nodule. CT abd/pelvis showing RML and RLL bronchiectasis and bronchial wall thickening. Ground glass and centrilobular nodular opacities adjacent to the area of bron chiectasis in the right lower lobe. Influenza, RSV and COVID PCR negative. Also with left adrenal mass at 5.1cm that has grown since January 2023 Also noted with fluid distended endometrial cavity with irregular intraluminal hyperdensity and gas, may represent endometrial hemorrhage, infectious material, or less likely a polyp. CT chest does not show bronchiectasis or a apical pulmonary nodule. left adrenal mass again noted and will need to be followed. Will check renin/issac and cortisol. Pelvic US incomplete. (5) UTI (urinary tract infection): Qualifiers: Hematuria presence: with hematuria Urinary tract infection type: acute cystitis Qualified Code(s): N30.01 - Acute cystitis with hematuria Code(s): N39.0 - Urinary tract infection, site not specified Status: Acute Assessment and Plan: UA is consistent with UTI. UCx collected. Rocephin started. Prior UTIs are normally august-sensitive. UCx growing Proteus sensitive to Rocephin (6) HTN (hypertension): Qualifiers: Hypertension type: essential hypertension Qualified Code(s): I10 - Essential (primary) hypertension Code(s): I10 - Essential (primary) hypertension Status: Acute Assessment and Plan: Patient's blood pressure was reviewed on 11/11 Blood pressure better controlled Contineu to follow Plan Hypothyroidism - continue Synthroid DVT prophylaxis - lovenox Code status - DNR Disp - SNF Subjective Date/time seen: 11/11/24 19:44 Interval history: 84yo female with RA, HTN PVD, COPD, hx of DVT and SBO here for abdominal pain. Tolerating current diet. No n/v. Abd pain better. No CP or SOB. Has a dry cough Exam Narrative: AF 96.5 146/67 61 16 91% ra Gen - NARD Chest - scattered rhocnhi CV - RRR. S1-S2. Abd - soft, +BS. Dressing clean and dry. drain in place with serosang fluid in bulb. Ext - no pedal edema Psych - normal mood and affect. Skin - warm and dry. Objective Data Vital Signs Vital Signs: Vital Signs - 24 hr 11/10/24 20:00 11/10/24 22:00 11/11/24 06:00 Temperature 98.3 F 97.8 F Pulse Rate 58 L 59 L Respiratory Rate 18 18 Blood Pressure 133/67 126/61 Pulse Oximetry 94 93 Oxygen Delivery Room Air 11/11/24 10:19 11/11/24 14:00 Temperature 96.5 F L Pulse Rate 61 Respiratory Rate 16 Blood Pressure 146/67 H Pulse Oximetry 91 Oxygen Delivery Room Air Intake/Output Intake/Output: Intake & Output 11/08/24 11/09/24 11/10/24 11/11/24 23:59 23:59 23:59 23:59 Intake Total 1350 2178 1969 1969 Output Total 1250 230 108 Balance 100 1948 1862 1969 Meds/Results Medications: Active Medications Generic Name Dose Route Start Last Admin Trade Name Freq PRN Reason Stop Dose Admin Acetaminophen 500 mg 11/11/24 10:56 Acetaminophen 500 Mg Tablet PO Q6H PRN Pain Rated 1-3 Atorvastatin Calcium 20 mg 11/10/24 18:00 11/11/24 17:08 Atorvastatin 20 Mg Tablet PO 20 mg QPM SALMA Administration Donepezil HCl 10 mg 11/11/24 09:00 11/11/24 09:32 Donepezil Hcl 5 Mg Tablet PO 10 mg DAILY SALMA Administration Enoxaparin Sodium 30 mg 11/08/24 09:00 11/11/24 09:31 Enoxaparin 30 Mg/0.3 Ml Syringe SUB-Q 30 mg DAILY SALMA Administration Fentanyl Citrate 12.5 mcg 11/07/24 17:59 Fentanyl Citrate Inj (*Crx) 100 Mcg/2 Ml Vial IV PUSH Q2H PRN Breakthrough Pain Rated 4-6 or NPO Fentanyl Citrate 25 mcg 11/07/24 17:59 Fentanyl Citrate Inj (*Crx) 100 Mcg/2 Ml Vial IV PUSH Q2H PRN Breakthrough Pain Rated 7-10 or NPO Ceftriaxone Sodium 1 gm in 50 mls @ 100 mls/hr 11/08/24 00:00 11/11/24 00:56 Rocephin 1 Gm/Ns 50 Ml IVPB Infused Q24H SALMA Infusion Metronidazole 500 mg in 100 mls @ 100 mls/hr 11/07/24 06:00 11/11/24 14:15 Flagyl 500 Mg/Iso Soln 100 Ml IVPB Infused Q8H SALMA Infusion Lactated Ringer's 1,000 mls @ 60 mls/hr 11/07/24 17:59 11/11/24 09:31 Lr - Lactated Ringers Iv IV CONT Infused .[id number] SALMA Infusion Ibuprofen 800 mg in 200 mls @ 400 mls/hr 11/07/24 17:59 11/10/24 20:46 Caldolor 800 Mg/200 Ml IVPB Infused Q6H PRN Infusion Breakthrough Pain Rated 1-3 or NPO Levothyroxine Sodium 150 mcg 11/11/24 06:30 11/11/24 05:35 Levothyroxine Sodium 150 Mcg Tablet PO 150 mcg DAILY@0630 SALMA Administration Losartan Potassium 50 mg 11/10/24 21:00 11/10/24 20:16 Losartan Potassium 50 Mg Tablet PO 50 mg QHS SALAM Administration Melatonin 10 mg 11/10/24 14:41 11/10/24 20:15 Melatonin 5 Mg Tablet PO 10 mg HS PRN Administration Insomnia Naloxone HCl 0.1 mg 11/07/24 17:59 Naloxone Hcl 0.4 Mg/Ml Vial IV PUSH Q2M PRN Opiate Reversal Pantoprazole Sodium 40 mg 11/10/24 21:00 11/11/24 09:32 Pantoprazole 40 Mg Tablet PO 40 mg Q12HR SALMA Administration Tramadol HCl 50 mg 11/11/24 10:56 Tramadol Hcl (*Crx) 50 Mg Tablet PO Q4H PRN Pain Rated 4-6 Radiology Results: ITS Impressions Abdomen/Pelvis CT 11/06/24 21:22 IMPRESSION: Focal areas of right middle lobe and right lower lobe chronic infection, inflammation, or aspiration. 5.1 cm left adrenal mass, previously met criteria for adenoma but now demonstrating interval growth that could reflect interval hemorrhage within an adenoma or different cell type. Indeterminate density 1.6 cm right renal lesion, also with interval growth. Recommend nonemergent MR of the abdomen without contrast to evaluate these lesions. Small bowel obstruction with herniation of a loop of distal ileum into an umbilical hernia. Mild inflammatory changes within the hernia sac. Fluid distended endometrial cavity with irregular intraluminal hyperdensity and gas, may represent endometrial hemorrhage, infectious material, or less likely a polyp. Correlate with any history of recent gynecologic procedure. Consider endometritis in the differential and pelvic ultrasound for further evaluation. Possible cystitis, correlate with urinalysis. Chest X-Ray 11/07/24 05:18 Impression: Possible 15 mm right apical pulmonary nodule versus confluence of shadows. Chest CT recommended to confirm or exclude pulmonary nodule. Abdomen X-Ray 11/07/24 05:24 Impression: NG tube in satisfactory position. Small bowel obstruction. High Resolution CT 11/11/24 06:01 Impression: Moderate right pleural effusion and small left pleural effusion. Extensive presumed right lower lobe atelectasis versus possibly pneumonia. Partial left lower lobe atelectasis. Mild emphysema in the upper lobes. 4.8 x 4.0 cm heterogeneous left adrenal mass, similar to recent prior abdominal pelvic CT. Neoplastic/metastatic lesion is a consideration, versus acute adrenal hemorrhage/hematoma. Extensive wall thickening of the stomach and proximal duodenum. Correlate for infectious/inflammatory gastritis/duodenitis. Modified Barium Swallow 11/11/24 16:07 IMPRESSION: 1. Normal modified barium swallow. 2. Please refer to the speech therapy report for recommendations. Pelvis Ultrasound 11/11/24 16:08 IMPRESSION: 1. Uterus and ovaries not visualized on transabdominal imaging. The patient is confused and would not tolerate transvaginal imaging. Labs Labs: Laboratory Results - last 24 hr 11/11/24 06:16 WBC 10.3 H RBC 3.49 L Hgb 10.3 L Hct 31.5 L MCV 90.3 MCH 29.5 MCHC 32.7 RDW 17.2 H Plt Count 219 MPV 12.9 H Immature Gran % (Auto) 0.6 H Neut % (Auto) 86.0 H Lymph % (Auto) 9.6 L [place] % (Auto) 3.3 Eos % (Auto) 0.4 Baso % (Auto) 0.1 L Lymph # (Auto) 0.98 [place] # (Auto) 0.3 Eos # (Auto) 0.0 Baso # (Auto) 0.0 Abs Immat Gran (auto) 0.06 H Absolute Neuts (auto) 8.8 H Absolute Nucleated RBC 0.000 Nucleated RBC % 0.0 Sodium 137 Potassium 3.4 Chloride 114 H Carbon Dioxide 25 Anion Gap -2 L BUN 24 H Creatinine 1.10 H Estim Creat Clear Calc 26 Estimated GFR 47 L Glucose 99 Calcium 7.5 L Magnesium 1.7 Total Bilirubin 0.5 AST 12 L ALT 8 Alkaline Phosphatase 49 Total Protein 5.0 L Albumin 2.0 L IgG 1159 IgA 412 H IgM 84 Rheumatoid Factor 45.8
[2024-11-11] MEDS: LOSARTAN POTASSIUM 50 MG TABLET PO (21:49)
[2024-11-11 22:00] VITALS: BP 145/74; PULSE 67; RESP 20; TEMP 37.2; O2SAT 97
[2024-11-12] MEDS: metroNIDAZOLE 500 MG/ISO 100ML 500 MG/100 ML BAG 100 MG IVPB (05:57)
[2024-11-12] MEDS: LEVOTHYROXINE SODIUM 150 MCG TABLET PO (05:58)
[2024-11-12 06:00] VITALS: BP 130/71; PULSE 64; RESP 18; TEMP 36.9; O2SAT 95
[2024-11-12 07:35] LABS: Anion Gap 0 mmol/L (4-12); Blood Urea Nitrogen 17 mg/dL (7-17); Calcium 7.5 mg/dL (8.4-10.2); Carbon Dioxide 27 mmol/L (22-30); Chloride 113 mmol/L (98-107); Estimated CRCL calculation 31 ml/min; Estimated Glomerular Filt Rate > 60; Glucose 88 mg/dL (65-110); Potassium 4.2 mmol/L (3.4-5.0); Sodium 140 mmol/L (137-145)
[2024-11-12 08:20] LABS: Glucose Point of Care 91 mg/dl (65-105)
[2024-11-12 08:29] LABS: Folic Acid 4.6 ng/mL (2.76->20)
[2024-11-12 08:57] LABS: Vitamin D 25 Hydroxy 18.7 ng/mL
[2024-11-12] MEDS: DONEPEZIL HCL 5 MG TABLET 10 MG PO (09:20)
[2024-11-12] MEDS: PANTOPRAZOLE 40 MG TABLET PO ×2 (09:20→20:58)
[2024-11-12] MEDS: ENOXAPARIN 30 MG/0.3 ML SYRINGE SUB-Q (09:20)
--- NOTE | 2024-11-12 11:37 | PM.PNGS ---
Progress Note: A&P Assessment and Plan (1) Chronic diarrhea: Code(s): K52.9 - Noninfective gastroenteritis and colitis, unspecified Status: Chronic Assessment and Plan: patient reports that she has had chronic diarrhea that long predates her surgery. It is still quite a nuisance and uncomfortable. Will try Questran b.i.d. and p.r.n. Imodium. (2) S/P small bowel resection: Code(s): Z90.49 - Acquired absence of other specified parts of digestive tract Status: Acute Assessment and Plan: Bowel function has returned. (3) History of umbilical hernia repair: Code(s): Z98.890 - Other specified postprocedural states; Z87.19 - Personal history of other diseases of the digestive system Status: Acute Assessment and Plan: Repair is intact. Umbilicus appears ischemic but no sign of infection and will watch for now. Will have umbilicus packed with gauze and gauze over incision as well. Discussed with patient's nurse. (4) Incarcerated umbilical hernia: Code(s): K42.0 - Umbilical hernia with obstruction, without gangrene Status: Acute Assessment and Plan: Resolved with surgery 5 days ago (5) SBO (small bowel obstruction): Code(s): K56.609 - Unspecified intestinal obstruction, unspecified as to partial versus complete obstruction Status: Acute Assessment and Plan: resolve with resection 5 days ago (6) Left adrenal mass: Code(s): E27.8 - Other specified disorders of adrenal gland Status: Chronic Assessment and Plan: hormonal secretion testing is underway. Subjective Subjective Date/Time Seen: 11/12/24 11:37 Post Op day: 5 Patient reports: pain is less, voiding w/o difficulty, diarrhea and afebrile Exam Const: General: cooperative, comfortable, no acute distress, alert and awake Nutritional Appearance: thin GI: Inspection: no abdominal wall ecchymosis, non-distended, incision ( Umbilicus ischemic and soft this morning. Remainder of incision is fine) and no visible herniation GI Palp: Yes Soft to palpation, Yes Tenderness to palpation present (GI) ( slightly tender), No Guarding due to palpation present (GI), No Hernia present and No Palpable mass present Auscultation: normal bowel sounds Objective Data Vital Signs Vital Signs: Vital Signs - 24 hr 11/11/24 14:00 11/11/24 22:00 11/12/24 06:00 Temperature 35.8 C L 37.2 C 36.9 C Pulse Rate 61 67 64 Respiratory Rate 16 20 18 Blood Pressure 146/67 H 145/74 H 130/71 Pulse Oximetry 91 97 95 Intake/Output Intake/Output: Intake & Output 11/09/24 11/10/24 11/11/24 11/12/24 23:59 23:59 23:59 23:59 Intake Total 2178 1969 2069 100 Output Total 230 108 30 Balance 1947 1861 2069 70 Meds/Results Medications: Active Medications Generic Name Dose Route Start Last Admin Trade Name Freq PRN Reason Stop Dose Admin Acetaminophen 500 mg 11/11/24 10:56 Acetaminophen 500 Mg Tablet PO Q6H PRN Pain Rated 1-5 Atorvastatin Calcium 20 mg 11/10/24 18:00 11/11/24 17:08 Atorvastatin 20 Mg Tablet PO 20 mg QPM SALMA Administration Cholestyramine Resin 4 gm 11/12/24 18:00 Cholestyramine (W/ Sugar) 4 Gm Powd.Pack PO BID@1000,1800 [facility] Cholestyramine Resin 4 gm 11/12/24 11:34 Cholestyramine (W/ Sugar) 4 Gm Powd.Pack PO 11/12/24 11:35 ONCE ONE Donepezil HCl 10 mg 11/11/24 09:00 11/12/24 09:20 Donepezil Hcl 5 Mg Tablet PO 10 mg DAILY SALMA Administration Enoxaparin Sodium 30 mg 11/08/24 09:00 11/12/24 09:20 Enoxaparin 30 Mg/0.3 Ml Syringe SUB-Q 30 mg DAILY SALMA Administration Levofloxacin 750 mg 11/13/24 07:00 Levofloxacin 750 Mg Tablet PO 11/13/24 07:01 ONCE ONE Levothyroxine Sodium 150 mcg 11/11/24 06:30 11/12/24 05:58 Levothyroxine Sodium 150 Mcg Tablet PO 150 mcg DAILY@0630 SALMA Administration Loperamide HCl 2 mg 11/12/24 11:36 Loperamide Hcl 2 Mg Capsule PO PRN PRN Diarrhea Losartan Potassium 50 mg 11/10/24 21:00 11/11/24 21:49 Losartan Potassium 50 Mg Tablet PO 50 mg QHS SALMA Administration Melatonin 10 mg 11/10/24 14:41 11/10/24 20:15 Melatonin 5 Mg Tablet PO 10 mg HS PRN Administration Insomnia Metronidazole 500 mg 11/12/24 14:00 Metronidazole 500 Mg Tablet PO 11/13/24 22:01 Q8HR SALMA Naloxone HCl 0.1 mg 11/07/24 17:59 Naloxone Hcl 0.4 Mg/Ml Vial IV PUSH Q2M PRN Opiate Reversal Pantoprazole Sodium 40 mg 11/10/24 21:00 11/12/24 09:20 Pantoprazole 40 Mg Tablet PO 40 mg Q12HR SALMA Administration Tramadol HCl 50 mg 11/11/24 10:56 Tramadol Hcl (*Crx) 50 Mg Tablet PO Q4H PRN Pain Rated 6 or Greater Radiology Results: ITS Impressions Abdomen/Pelvis CT 11/06/24 21:22 IMPRESSION: Focal areas of right middle lobe and right lower lobe chronic infection, inflammation, or aspiration. 5.1 cm left adrenal mass, previously met criteria for adenoma but now demonstrating interval growth that could reflect interval hemorrhage within an adenoma or different cell type. Indeterminate density 1.6 cm right renal lesion, also with interval growth. Recommend nonemergent MR of the abdomen without contrast to evaluate these lesions. Small bowel obstruction with herniation of a loop of distal ileum into an umbilical hernia. Mild inflammatory changes within the hernia sac. Fluid distended endometrial cavity with irregular intraluminal hyperdensity and gas, may represent endometrial hemorrhage, infectious material, or less likely a polyp. Correlate with any history of recent gynecologic procedure. Consider endometritis in the differential and pelvic ultrasound for further evaluation. Possible cystitis, correlate with urinalysis. Chest X-Ray 11/07/24 05:18 Impression: Possible 15 mm right apical pulmonary nodule versus confluence of shadows. Chest CT recommended to confirm or exclude pulmonary nodule. Abdomen X-Ray 11/07/24 05:24 Impression: NG tube in satisfactory position. Small bowel obstruction. High Resolution CT 11/11/24 06:01 Impression: Moderate right pleural effusion and small left pleural effusion. Extensive presumed right lower lobe atelectasis versus possibly pneumonia. Partial left lower lobe atelectasis. Mild emphysema in the upper lobes. 4.8 x 4.0 cm heterogeneous left adrenal mass, similar to recent prior abdominal pelvic CT. Neoplastic/metastatic lesion is a consideration, versus acute adrenal hemorrhage/hematoma. Extensive wall thickening of the stomach and proximal duodenum. Correlate for infectious/inflammatory gastritis/duodenitis. Modified Barium Swallow 11/11/24 16:07 IMPRESSION: 1. Normal modified barium swallow. 2. Please refer to the speech therapy report for recommendations. Pelvis Ultrasound 11/11/24 16:08 IMPRESSION: 1. Uterus and ovaries not visualized on transabdominal imaging. The patient is confused and would not tolerate transvaginal imaging. Labs Labs: Laboratory Results - last 24 hr 11/12/24 11/12/24 06:49 07:45 Sodium 140 Potassium 4.2 Chloride 113 H Carbon Dioxide 27 Anion Gap 0 L BUN 17 Creatinine 0.88 Estim Creat Clear Calc 31 Estimated GFR > 60 Glucose 88 POC Capillary Glucose 91 Calcium 7.5 L Vitamin B12 862.0 Vitamin D 25-Hydroxy 18.7 Folate 4.6 Random Cortisol 26.40
[2024-11-12] MEDS: CHOLESTYRAMINE (W/ SUGAR) 4 GM POWD.PACK PO ×2 (12:34→18:48)
[2024-11-12 14:00] VITALS: BP 140/73; PULSE 65; RESP 22; TEMP 37.9; O2SAT 97
[2024-11-12] MEDS: metroNIDAZOLE 500 MG TABLET PO ×2 (16:46→21:00)
[2024-11-12] MEDS: LOPERAMIDE HCL 2 MG CAPSULE PO (16:46)
--- NOTE | 2024-11-12 17:16 | P.PNIM_ITS ---
Progress Note: A&P Assessment and Plan (1) SBO (small bowel obstruction): Code(s): K56.609 - Unspecified intestinal obstruction, unspecified as to partial versus complete obstruction Status: Acute Assessment and Plan: Patient presents with abdominal pain and found to have SBO from incarcerated umbilical hernia. CT Abd showing diffuse small bowel dilation, transition point at the entrance of an umbilical hernia which contains a loop of nondilated distal ileum. No large bowel dilation. Normal appendix. Diverticulosis without diverticulitis. NGT placed. Repeat imaging showing SBO. Lactic normal. General surgery consulted and appreciate their input. Patient underwent repair 4 cm umbilical hernia, small bowel resection with anastomosis and appendectomy on 11/07/24 She has tolerated the procedure well. Pain controlled. Bowel fxn better. NGT removed. ADAT She was coughing with liquid so ST evaluation performed. Speech therapy evaluation was incomplete but they felt patient could safely proceed with minced and moist diet. Did well with thin liquids and did not need thickener. Continue minced and moist diet. (2) Incarcerated umbilical hernia: Code(s): K42.0 - Umbilical hernia with obstruction, without gangrene Status: Acute Assessment and Plan: As above. (3) [id number] kidney injury: Code(s): N17.9 - Acute kidney failure, unspecified; N18.9 - Chronic kidney disease, unspecified Status: Acute Assessment and Plan: BUN 70 and Cr 2.2 on admission. Baseline Cr 1.3-1.6 over the past year. CT scan with conrast showing no hydronephrosis or obstructing calcification; 1.6 cm indeterminate density left upper pole lesion (measured 1.5cm in January 2023); multiple bilateral subcentimeter renal hypodensities, too small to characterize; mild bladder wall edema possibly cystitis. UA consistent with UTI. Suspect dehydration and/or ATN and/or from infection causing the JC Cr better with IV fluids. Stop IV fluids. Follow and monitor UOP, electrolytes and renal fxn (4) Abnormal CT of the abdomen: Code(s): R93.5 - Abnormal findings on diagnostic imaging of other abdominal regions, including retroperitoneum Status: Acute Assessment and Plan: CXR showing possibly 15mm right apical pulm nodule. CT abd/pelvis showing RML and RLL bronchiectasis and bronchial wall thickening. Ground glass and centrilobular nodular opacities adjacent to the area of bronchiectasis in the right lower lobe. Influenza, RSV and COVID PCR negative. Also with left adrenal mass at 5.1cm that has grown since January 2023 Also noted with fluid distended endometrial cavity with irregular intraluminal hyperdensity and gas, may represent endometrial hemorrhage, infectious material, or less likely a polyp. Pelvic US incomplete. CT chest does not show bronchiectasis or an apical pulmonary nodule. left adrenal mass again noted and will need to be followed. Cortisol high but could be from recent surgery. Also on narcotics that can suppress cortisol release. Renin/issac pending. Will need repeat cortisol level after discharge. Will need repeat pelvic US to further evaluate endometrium (5) UTI (urinary tract infection): Qualifiers: Hematuria presence: with hematuria Urinary tract infection type: acute cystitis Qualified Code(s): N30.01 - Acute cystitis with hematuria Code(s): N39.0 - Urinary tract infection, site not specified Status: Acute Assessment and Plan: UA is consistent with UTI. UCx collected. Rocephin started. Prior UTIs are normally august-sensitive. UCx growing Proteus sensitive to Rocephin On abx and finishing a course. Low grade fever noted. Monitor for now (6) HTN (hypertension): Qualifiers: Hypertension type: essential hypertension Qualified Code(s): I10 - Essential (primary) hypertension Code(s): I10 - Essential (primary) hypertension Status: Acute Assessment and Plan: Patient's blood pressure was reviewed on 11/12 Blood pressure better controlled Continue to follow Plan Hypothyroidism - continue Synthroid DVT prophylaxis - lovenox Code status - DNR Disp - SNF Subjective Date/time seen: 11/12/24 17:16 Interval history: 84yo female with RA, HTN PVD, COPD, hx of DVT and SBO here for abdominal pain. Having diarrhea but states she has had this for years and takes immodium for it. No CP. No abd pain. Cough is better. Exam Narrative: 100.2 140/73 65 22 97% ra Gen - NARD Chest - clear bilaterally. CV - RRR. S1-S2. Abd - soft, +BS. Dressing clean and dry. drain in place with serosang fluid in bulb. Ext - trace pedal edema Psych - normal mood and affect. Skin - warm and dry. Objective Data Vital Signs Vital Signs: Vital Signs - 24 hr 11/11/24 22:00 11/12/24 06:00 11/12/24 14:00 Temperature 98.9 F 98.5 F 100.2 F H Pulse Rate 67 64 65 Respiratory Rate 20 18 22 H Blood Pressure 145/74 H 130/71 140/73 Pulse Oximetry 97 95 97 Intake/Output Intake/Output: Intake & Output 11/09/24 11/10/24 11/11/24 11/12/24 23:59 23:59 23:59 23:59 Intake Total 2178 1969 2069 158 Output Total 230 108 30 Balance 1948 2 0 1550 Meds/Results Medications: Active Medications Generic Name Dose Route Start Last Admin Trade Name Freq PRN Reason Stop Dose Admin Acetaminophen 500 mg 11/11/24 10:56 Acetaminophen 500 Mg Tablet PO Q6H PRN Pain Rated 1-5 Atorvastatin Calcium 20 mg 11/10/24 18:00 11/11/24 17:08 Atorvastatin 20 Mg Tablet PO 20 mg QPM SALMA Administration Cholestyramine Resin 4 gm 11/12/24 18:00 Cholestyramine (W/ Sugar) 4 Gm Powd.Pack PO BID@1000,1800 SALMA Donepezil HCl 10 mg 11/11/24 09:00 11/12/24 09:20 Donepezil Hcl 5 Mg Tablet PO 10 mg DAILY SALMA Administration Enoxaparin Sodium 30 mg 11/08/24 09:00 11/12/24 09:20 Enoxaparin 30 Mg/0.3 Ml Syringe SUB-Q 30 mg DAILY SALMA Administration Levofloxacin 750 mg 11/13/24 07:00 Levofloxacin 750 Mg Tablet PO 11/13/24 07:01 ONCE ONE Levothyroxine Sodium 150 mcg 11/11/24 06:30 11/12/24 05:58 Levothyroxine Sodium 150 Mcg Tablet PO 150 mcg DAILY@0630 SALMA Administration Loperamide HCl 2 mg 11/12/24 11:36 11/12/24 16:46 Loperamide Hcl 2 Mg Capsule PO 2 mg PRN PRN Administration Diarrhea Losartan Potassium 50 mg 11/10/24 21:00 11/11/24 21:49 Losartan Potassium 50 Mg Tablet PO 50 mg QHS SALMA Administration Melatonin 10 mg 11/10/24 14:41 11/10/24 20:15 Melatonin 5 Mg Tablet PO 10 mg HS PRN Administration Insomnia Metronidazole 500 mg 11/12/24 14:00 11/12/24 16:46 Metronidazole 500 Mg Tablet PO 11/13/24 22:01 500 mg Q8HR SALMA Administration Naloxone HCl 0.1 mg 11/07/24 17:59 Naloxone Hcl 0.4 Mg/Ml Vial IV PUSH Q2M PRN Opiate Reversal Pantoprazole Sodium 40 mg 11/10/24 21:00 11/12/24 09:20 Pantoprazole 40 Mg Tablet PO 40 mg Q12HR SALMA Administration Tramadol HCl 50 mg 11/11/24 10:56 Tramadol Hcl (*Crx) 50 Mg Tablet PO Q4H PRN Pain Rated 6 or Greater Radiology Results: ITS Impressions Abdomen/Pelvis CT 11/06/24 21:22 IMPRESSION: Focal areas of right middle lobe and right lower lobe chronic infection, inflammation, or aspiration. 5.1 cm left adrenal mass, previously met criteria for adenoma but now demonstrating interval growth that could reflect interval hemorrhage within an adenoma or different cell type. Indeterminate density 1.6 cm right renal lesion, also with interval growth. Recommend nonemergent MR of the abdomen without contrast to evaluate these lesions. Small bowel obstruction with herniation of a loop of distal ileum into an umbilical hernia. Mild inflammatory changes within the hernia sac. Fluid distended endometrial cavity with irregular intraluminal hyperdensity and gas, may represent endometrial hemorrhage, infectious material, or less likely a polyp. Correlate with any history of recent gynecologic procedure. Consider e ndometritis in the differential and pelvic ultrasound for further evaluation. Possible cystitis, correlate with urinalysis. Chest X-Ray 11/07/24 05:18 Impression: Possible 15 mm right apical pulmonary nodule versus confluence of shadows. Chest CT recommended to confirm or exclude pulmonary nodule. Abdomen X-Ray 11/07/24 05:24 Impression: NG tube in satisfactory position. Small bowel obstruction. High Resolution CT 11/11/24 06:01 Impression: Moderate right pleural effusion and small left pleural effusion. Extensive presumed right lower lobe atelectasis versus possibly pneumonia. Partial left lower lobe atelectasis. Mild emphysema in the upper lobes. 4.8 x 4.0 cm heterogeneous left adrenal mass, similar to recent prior abdominal pelvic CT. Neoplastic/metastatic lesion is a consideration, versus acute adrenal hemorrhage/hematoma. Extensive wall thickening of the stomach and proximal duodenum. Correlate for infectious/inflammatory gastritis/duodenitis. Modified Barium Swallow 11/11/24 16:07 IMPRESSION: 1. Normal modified barium swallow. 2. Please refer to the speech therapy report for recommendations. Pelvis Ultrasound 11/11/24 16:08 IMPRESSION: 1. Uterus and ovaries not visualized on transabdominal imaging. The patient is confused and would not tolerate transvaginal imaging. Labs Labs: Laboratory Results - last 24 hr 11/12/24 11/12/24 06:49 07:45 Sodium 140 Potassium 4.2 Chloride 113 H Carbon Dioxide 27 Anion Gap 0 L BUN 17 Creatinine 0.88 Estim Creat Clear Calc 31 Estimated GFR > 60 Glucose 88 POC Capillary Glucose 91 Calcium 7.5 L Vitamin B12 862.0 Vitamin D 25-Hydroxy 18.7 Folate 4.6 Random Cortisol 26.40
[2024-11-12 17:29] LABS: Glucose Point of Care 105 mg/dl (65-105)
[2024-11-12] MEDS: ATORVASTATIN 20 MG TABLET PO (17:35)
[2024-11-12 20:21] LABS: Glucose Point of Care 213 mg/dl (65-105)
[2024-11-12 20:50] VITALS: PULSE 65; RESP 22; O2SAT 97
[2024-11-12] MEDS: LOSARTAN POTASSIUM 50 MG TABLET PO (20:58)
[2024-11-12 22:00] VITALS: BP 153/77; PULSE 72; RESP 18; TEMP 36.6; O2SAT 98
[2024-11-13] MEDS: traMADol HCL (*CRX) 50 MG TABLET PO ×4 (02:03→20:25)
[2024-11-13] MEDS: LOPERAMIDE HCL 2 MG CAPSULE PO ×2 (02:03→20:25)
[2024-11-13] MEDS: metroNIDAZOLE 500 MG TABLET PO ×3 (05:57→21:41)
[2024-11-13] MEDS: LEVOTHYROXINE SODIUM 150 MCG TABLET PO (05:57)
[2024-11-13 06:00] VITALS: BP 140/66; PULSE 66; RESP 18; TEMP 36.6; O2SAT 100
[2024-11-13 06:56] LABS: Hematocrit 35.2 % (37.0-47.0); Hemoglobin 11.5 g/dL (12.0-15.0); Mean Corpuscular HGB Conc 32.7 g/dl (32-36); Mean Corpuscular Hemoglobin 29.7 pg (26-34); Mean Platelet Volume 12.2 fl (7.4-10.4); Platelet Count Result 290 k/mm3 (150-375); Red Blood Count 3.87 M/mm3 (4.2-5.4); Red Cell Distribution Width 17.2 % (11.5-14.5); White Blood Count 13.1 K/mm3 (4.5-10.0)
[2024-11-13 07:25] LABS: Anion Gap 4 mmol/L (4-12); Blood Urea Nitrogen 14 mg/dL (7-17); Calcium 7.4 mg/dL (8.4-10.2); Carbon Dioxide 23 mmol/L (22-30); Chloride 112 mmol/L (98-107); Estimated CRCL calculation 30 ml/min; Estimated Glomerular Filt Rate 58; Glucose 99 mg/dL (65-110); Potassium 3.6 mmol/L (3.4-5.0); Sodium 139 mmol/L (137-145)
[2024-11-13 08:00] VITALS: PULSE 66; RESP 18; O2SAT 100
[2024-11-13] MEDS: ENOXAPARIN 30 MG/0.3 ML SYRINGE SUB-Q (08:35)
[2024-11-13] MEDS: PANTOPRAZOLE 40 MG TABLET PO ×2 (08:35→20:26)
[2024-11-13] MEDS: DONEPEZIL HCL 5 MG TABLET 10 MG PO (08:35)
[2024-11-13] MEDS: levoFLOXacin 750 MG TABLET PO (08:35)
--- NOTE | 2024-11-13 10:35 | PCNWS ---
Weekly nutritional screen. Patient is tolerating current Minced & moist level 5 diet with adequate intake, 25-100% since advanced. Progressing well since small bowel resection and appendectomy 11/07/24. No weight loss reported. No nutritional needs at this time.
[2024-11-13] MEDS: ONDANSETRON INJ 4 MG/2 ML VIAL IV PUSH ×2 (10:56→14:37)
[2024-11-13] MEDS: CHOLESTYRAMINE (W/ SUGAR) 4 GM POWD.PACK PO ×2 (10:57→16:23)
--- NOTE | 2024-11-13 11:46 | P.PNGS_ITS ---
Progress Note: A&P Assessment and Plan (1) Chronic diarrhea: Code(s): K52.9 - Noninfective gastroenteritis and colitis, unspecified Status: Chronic Assessment and Plan: She was started on cholestyramine BID and PRN Imodium. (2) S/P small bowel resection: Code(s): Z90.49 - Acquired absence of other specified parts of digestive tract Status: Acute Assessment and Plan: Bowel function has returned and actually dealing with diarrhea, which is reportedly chronic. See above. (3) History of umbilical hernia repair: Code(s): Z98.890 - Other specified postprocedural states; Z87.19 - Personal history of other diseases of the digestive system Status: Acute Assessment and Plan: Repair is intact. Umbilicus appears ischemic but no sign of infection and will watch for now. She complains of diffuse abdominal pain today with nausea and vomiting. Will order CT scan of the abdomen and pelvis to evaluate. (4) Incarcerated umbilical hernia: Code(s): K42.0 - Umbilical hernia with obstruction, without gangrene Status: Acute Assessment and Plan: Resolved with surgery 5 days ago. (5) SBO (small bowel obstruction): Code(s): K56.609 - Unspecified intestinal obstruction, unspecified as to partial versus complete obstruction Status: Acute Assessment and Plan: secondary to incarcerated umbilical hernia, s/p umbilical hernia repair. Now with nausea, vomiting, and abdominal pain. Will get repeat CT scan today. (6) Left adrenal mass: Code(s): E27.8 - Other specified disorders of adrenal gland Status: Chronic Assessment and Plan: hormonal secretion testing is underway Subjective Subjective Date/Time Seen: 11/13/24 11:46 Post Op day: 6 Patient reports: still having pain, diarrhea, nausea, vomiting and afebrile Interval history: Patient seen this morning and she is complaining of abdominal pain. She reports it is all over. She had just called her nurse for some pain medication. While I was talking to her, she had a sudden onset of nausea and vomited. She only had about 50 cc of emesis that appeared clear yellow. Her nurse was at the bedside and she was given Zofran. WBC count remains slightly elevated and went up from 10k to 13k today. She reports no changes in her diarrhea. Nursing reports she hasn't had any this morning, but had multiple episodes of liquid stool overnight with some stool incontinence. She has been started on Questran and also received one dose of Imodium this morning. Exam Const: General: uncomfortable Orientation/consciousness: patient oriented x3 GI: Inspection: incision (dry and daphne intact, small area of ischemic skin near umbilicus) GI Palp: Yes Soft to palpation, Yes Tenderness to palpation present (GI) (diffusely tender), No Guarding due to palpation present (GI), No Hernia present (repair intact) and No Rebound tenderness present Auscultation: Hypoactive bowel sounds present Objective Data Vital Signs Vital Signs: Vital Signs - 24 hr 11/12/24 14:00 11/12/24 20:50 11/12/24 22:00 Temperature 100.2 F H 97.9 F Pulse Rate 65 65 72 Respiratory Rate 22 H 22 H 18 Blood Pressure 140/73 153/77 H Pulse Oximetry 97 97 98 Oxygen Delivery Room Air 11/13/24 06:00 Temperature 97.8 F Pulse Rate 66 Respiratory Rate 18 Blood Pressure 140/66 Pulse Oximetry 100 Oxygen Delivery Intake/Output Intake/Output: Intake & Output 11/10/24 11/11/24 11/12/24 11/13/24 23:59 23:59 23:59 23:59 Intake Total 1970 2069 193 240 Output Total 108 30 50 Balance 1861 2069 190 190 Meds/Results Medications: Active Medications Generic Name Dose Route Start Last Admin Trade Name Freq PRN Reason Stop Dose Admin Acetaminophen 500 mg 11/11/24 10:56 Acetaminophen 500 Mg Tablet PO Q6H PRN Pain Rated 1-5 Atorvastatin Calcium 20 mg 11/10/24 18:00 11/12/24 17:35 Atorvastatin 20 Mg Tablet PO 20 mg QPM SALMA Administration Cholestyramine Resin 4 gm 11/12/24 18:00 11/13/24 10:57 Cholestyramine (W/ Sugar) 4 Gm Powd.Pack PO 4 gm BID@1000,1800 SALMA Administration Donepezil HCl 10 mg 11/11/24 09:00 11/13/24 08:35 Donepezil Hcl 5 Mg Tablet PO 10 mg DAILY SALMA Administration Enoxaparin Sodium 30 mg 11/08/24 09:00 11/13/24 08:35 Enoxaparin 30 Mg/0.3 Ml Syringe SUB-Q 30 mg DAILY SALMA Administration Levothyroxine Sodium 150 mcg 11/11/24 06:30 11/13/24 05:57 Levothyroxine Sodium 150 Mcg Tablet PO 150 mcg DAILY@0630 SALMA Administration Loperamide HCl 2 mg 11/12/24 11:36 11/13/24 02:03 Loperamide Hcl 2 Mg Capsule PO 2 mg PRN PRN Administration Diarrhea Losartan Potassium 50 mg 11/10/24 21:00 11/12/24 20:58 Losartan Potassium 50 Mg Tablet PO 50 mg QHS SALMA Administration Melatonin 10 mg 11/10/24 14:41 11/10/24 20:15 Melatonin 5 Mg Tablet PO 10 mg HS PRN Administration Insomnia Metronidazole 500 mg 11/12/24 14:00 11/13/24 05:57 Metronidazole 500 Mg Tablet PO 11/13/24 22:01 500 mg Q8HR SALMA Administration Naloxone HCl 0.1 mg 11/07/24 17:59 Naloxone Hcl 0.4 Mg/Ml Vial IV PUSH Q2M PRN Opiate Reversal Ondansetron HCl 4 mg 11/13/24 10:51 11/13/24 10:56 Ondansetron Inj 4 Mg/2 Ml Vial IV PUSH 4 mg Q4H PRN Administration Nausea And Vomiting Pantoprazole Sodium 40 mg 11/10/24 21:00 11/13/24 08:35 Pantoprazole 40 Mg Tablet PO 40 mg Q12HR SALMA Administration Tramadol HCl 50 mg 11/11/24 10:56 11/13/24 05:57 Tramadol Hcl (*Crx) 50 Mg Tablet PO 50 mg Q4H PRN Administration Pain Rated 6 or Greater Radiology Results: ITS Impressions Abdomen/Pelvis CT 11/06/24 21:22 IMPRESSION: Focal areas of right middle lobe and right lower lobe chronic infection, inflammation, or aspiration. 5.1 cm left adrenal mass, previously met criteria for adenoma but now demonstra ting interval growth that could reflect interval hemorrhage within an adenoma or different cell type. Indeterminate density 1.6 cm right renal lesion, also with interval growth. Recommend nonemergent MR of the abdomen without contrast to evaluate these lesions. Small bowel obstruction with herniation of a loop of distal ileum into an umbilical hernia. Mild inflammatory changes within the hernia sac. Fluid distended endometrial cavity with irregular intraluminal hyperdensity and gas, may represent endometrial hemorrhage, infectious material, or less likely a polyp. Correlate with any history of recent gynecologic procedure. Consider endometritis in the differential and pelvic ultrasound for further evaluation. Possible cystitis, correlate with urinalysis. Chest X-Ray 11/07/24 05:18 Impression: Possible 15 mm right apical pulmonary nodule versus confluence of shadows. Chest CT recommended to confirm or exclude pulmonary nodule. Abdomen X-Ray 11/07/24 05:24 Impression: NG tube in satisfactory position. Small bowel obstruction. High Resolution CT 11/11/24 06:01 Impression: Moderate right pleural effusion and small left pleural effusion. Extensive presumed right lower lobe atelectasis versus possibly pneumonia. Partial left lower lobe atelectasis. Mild emphysema in the upper lobes. 4.8 x 4.0 cm heterogeneous left adrenal mass, similar to recent prior abdominal pelvic CT. Neoplastic/metastatic lesion is a consideration, versus acute adrenal hemorrhage/hematoma. Extensive wall thickening of the stomach and proximal duodenum. Correlate for infectious/inflammatory gastritis/duodenitis. Modified Barium Swallow 11/11/24 16:07 IMPRESSION: 1. Normal modified barium swallow. 2. Please refer to the speech therapy report for recommendations. Pelvis Ultrasound 11/11/24 16:08 IMPRESSION: 1. Uterus and ovaries not visualized on transabdominal imaging. The patient is confused and would not tolerate transvaginal imaging. Labs Labs: Laboratory Results - last 24 hr 11/12/24 11/12/24 11/13/24 17:21 19:45 06:20 WBC 13.1 H RBC 3.87 L Hgb 11.5 L Hct 35.2 L MCV 91.0 MCH 29.7 MCHC 32.7 RDW 17.2 H Plt Count 290 MPV 12.2 H Sodium 139 Potassium 3.6 Chloride 112 H Carbon Dioxide 23 Anion Gap 4 BUN 14 Creatinine 0.92 Estim Creat Clear Calc 30 Estimated GFR 58 L Glucose 99 POC Capillary Glucose 105 213 H Calcium 7.4 L
[2024-11-13 14:00] VITALS: BP 115/53; PULSE 60; RESP 18; TEMP 36.4; O2SAT 95
--- OUTSIDE RECORDS SUMMARY | 2024-11-13 14:15 | XMS_ITS | Continuity of Care Document ---
Author Organization [facility] - Main Address [address] [address] Insurance Providers Payer Plan Claims Address Claims Phone Policy Number Group Number Relation Employer Guarantor Name Guarantor Guarantor Address Guarantor Phone Aena [facility] [id number] Self Arielle Pittman [address] [place] [id number] [place] try [facility] [id number] Mele Pittman [address] [place] [address] Comme ial 1 [id number] Self Arielle Pittman [address] [place], [place] [id number] Problems Condition ICD9 code ICD10 code SNOMED code Start Date End Date S tatus Acute cystitis with hematuria N30.01 Results No Results Allergies, adverse reactions, alerts No known allergies and adverse reactions Medications No administered medications reported Vital Signs No vital signs reported Social History No smoking Hx information available
[2024-11-13] MEDS: ATORVASTATIN 20 MG TABLET PO (16:23)
--- NOTE | 2024-11-13 17:23 | PM.IMPN ---
Progress Note: A&P Assessment and Plan (1) SBO (small bowel obstruction): Code(s): K56.609 - Unspecified intestinal obstruction, unspecified as to partial versus complete obstruction Status: Acute Assessment and Plan: Patient presented with abdominal pain and found to have SBO from incarcerated umbilical hernia. CT Abd showing diffuse small bowel dilation, transition point at the entrance of an umbilical hernia which contains a loop of nondilated distal ileum. No large bowel dilation. Normal appendix. Diverticulosis without diverticulitis. NGT placed. Repeat imaging showing SBO. Lactic normal. General surgery consulted and appreciate their input. Patient underwent repair 4 cm umbilical hernia, small bowel resection with anastomosis and appendectomy on 11/07/24 Tolerated procedure well. Continue pain control. Bowel fxn better. NGT removed. ADAT, now on soft diet. She was coughing with liquid so ST evaluation performed. Speech therapy evaluation was incomplete but they felt patient could safely proceed with minced and moist diet. Did well with thin liquids and did not need thickener. Continue minced and moist diet. Further mgt per general surgery. (2) Incarcerated umbilical hernia: Code(s): K42.0 - Umbilical hernia with obstruction, without gangrene Status: Acute Assessment and Plan: As above. (3) [id number] kidney injury: Code(s): N17.9 - Acute kidney failure, unspecified; N18.9 - Chronic kidney disease, unspecified Status: Acute Assessment and Plan: BUN 70 and Cr 2.2 on admission. Baseline Cr 1.3-1.6 over the past year. CT scan with conrast showing no hydronephrosis or obstructing calcification; 1.6 cm indeterminate density left upper pole lesion (measured 1.5cm in January 2023); multiple bilateral subcentimeter renal hypodensities, too small to characterize; mild bladder wall edema possibly cystitis. UA consistent with UTI. Suspect dehydration and/or ATN and/or from infection causing the JC Cr currently wnl and IV fluids stopped. Continue to follow and monitor UOP, electrolytes and renal fxn (4) Abnormal CT of the abdomen: Code(s): R93.5 - Abnormal findings on diagnostic imaging of other abdominal regions, including retroperitoneum Status: Acute Assessment and Plan: CXR showing possibly 15mm right apical pulm nodule. CT abd/pelvis showing RML and RLL bronchiectasis and bronchial wall thickening. Ground glass and centrilobular nodular opacities adjacent to the area of bronchiectasis in the right lower lobe. Influenza, RSV and COVID PCR negative. Also with left adrenal mass at 5.1cm that has grown since January 2023 Also noted with fluid distended endometrial cavity with irregular intraluminal hyperdensity and gas, may represent endometrial hemorrhage, infectious material, or less likely a polyp. Pelvic US incomplete. CT chest does not show bronchiectasis or an apical pulmonary nodule. left adrenal mass again noted and will need to be followed. Cortisol high but could be from recent surgery. Also on narcotics that can suppress cortisol release. Renin/issac still pending. Will need repeat cortisol level after discharge. Repeat pelvic US: Uterus and ovaries not visualized on transabdominal imaging. The patient is confused and would not tolerate transvaginal imaging. (5) UTI (urinary tract infection): Qualifiers: Hematuria presence: with hematuria Urinary tract infection type: acute cystitis Qualified Code(s): N30.01 - Acute cystitis with hematuria Code(s): N39.0 - Urinary tract infection, site not specified Status: Acute Assessment and Plan: UA is consistent with UTI. UCx collected. Rocephin started. Prior UTIs are normally august-sensitive. UCx growing Proteus sensitive to Rocephin and Levaquin. abx therapy completed. (6) HTN (hypertension): Qualifiers: Hypertension type: essential hypertension Qualified Code(s): I10 - Essential (primary) hypertension Code(s): I10 - Essential (primary) hypertension Status: Acute Assessment and Plan: Patient's blood pressure reviewed on 11/13 Blood pressure wll controlled Continue to follow Plan Hypothyroidism - continue Synthroid DVT prophylaxis - lovenox Code status - DNR Disp - SNF Time Spent With Patient Time with patient: 25 - 35 minutes Subjective Date/time seen: 11/13/24 13:23 Patient states she feels alright and tolerating meals ok with no GI distress. Interval history: Patient on bedrest, looks comfortable and in no acute distress. Review of Systems Review of Systems: All systems reviewed & are unremarkable except as noted in HPI and below Exam Narrative: General: Well appearing, generalized muscle weakness. HEENT: Atraumatic, PERRL, EOM, moist mucosa. NECK: Supple. Lungs: Clear bilaterally. Heart: RRR, no murmurs. Abdomen: Soft, non-tender, non-distended, +BS, ileostomy intact RLQ. Neuro: Oriented to self and location, no focal neuro deficits noted. Psych: Pleasant and co-operative. Objective Data Vital Signs Vital Signs: Vital Signs - 24 hr 11/12/24 20:50 11/12/24 22:00 11/13/24 06:00 Temperature 97.9 F 97.8 F Pulse Rate 65 72 66 Respiratory Rate 22 H 18 18 Blood Pressure 153/77 H 140/66 Pulse Oximetry 97 98 100 Oxygen Delivery Room Air 11/13/24 08:00 11/13/24 14:00 Temperature 97.6 F Pulse Rate 66 60 Respiratory Rate 18 18 Blood Pressure 115/53 L Pulse Oximetry 100 95 Oxygen Delivery Room Air Intake/Output Intake/Output: Intake & Output 11/10/24 11/11/24 11/12/24 11/13/24 23:59 23:59 23:59 23:59 Intake Total 1970 2069 193 240 Output Total 108 30 150 Balance 2 0 1905 90 Meds/Results Medications: Active Medications Generic Name Dose Route Start Last Admin Trade Name Freq PRN Reason Stop Dose Admin Acetaminophen 500 mg 11/11/24 10:56 Acetaminophen 500 Mg Tablet PO Q6H PRN Pain Rated 1-5 Atorvastatin Calcium 20 mg 11/10/24 18:00 11/13/24 16:23 Atorvastatin 20 Mg Tablet PO 20 mg QPM SALMA Administration Cholestyramine Resin 4 gm 11/12/24 18:00 11/13/24 16:23 Cholestyramine (W/ Sugar) 4 Gm Powd.Pack PO 4 gm BID@1000,1800 SALMA Administration Donepezil HCl 10 mg 11/11/24 09:00 11/13/24 08:35 Donepezil Hcl 5 Mg Tablet PO 10 mg DAILY SALMA Administration Enoxaparin Sodium 30 mg 11/08/24 09:00 11/13/24 08:35 Enoxaparin 30 Mg/0.3 Ml Syringe SUB-Q 30 mg DAILY SALMA Administration Levothyroxine Sodium 150 mcg 11/11/24 06:30 11/13/24 05:57 Levothyroxine Sodium 150 Mcg Tablet PO 150 mcg DAILY@0630 SALMA Administration Loperamide HCl 2 mg 11/12/24 11:36 11/13/24 02:03 Loperamide Hcl 2 Mg Capsule PO 2 mg PRN PRN Administration Diarrhea Losartan Potassium 50 mg 11/10/24 21:00 11/12/24 20:58 Losartan Potassium 50 Mg Tablet PO 50 mg QHS SALMA Administration Melatonin 10 mg 11/10/24 14:41 11/10/24 20:15 Melatonin 5 Mg Tablet PO 10 mg HS PRN Administration Insomnia Metronidazole 500 mg 11/12/24 14:00 11/13/24 12:49 Metronidazole 500 Mg Tablet PO 11/13/24 22:01 500 mg Q8HR SALMA Administration Naloxone HCl 0.1 mg 11/07/24 17:59 Naloxone Hcl 0.4 Mg/Ml Vial IV PUSH Q2M PRN Opiate Reversal Ondansetron HCl 4 mg 11/13/24 10:51 11/13/24 14:37 Ondansetron Inj 4 Mg/2 Ml Vial IV PUSH 4 mg Q4H PRN Administration Nausea And Vomiting Pantoprazole Sodium 40 mg 11/10/24 21:00 11/13/24 08:35 Pantoprazole 40 Mg Tablet PO 40 mg Q12HR SALMA Administration Tramadol HCl 50 mg 11/11/24 10:56 11/13/24 12:49 Tramadol Hcl (*Crx) 50 Mg Tablet PO 50 mg Q4H PRN Administration Pain Rated 6 or Greater Radiology Results: ITS Impressions Chest X-Ray 11/07/24 05:18 Impression: Possible 15 mm right apical pulmonary nodule versus confluence of shadows. Chest CT recommended to confirm or exclude pulmonary nodule. Abdomen X-Ray 11/07/24 05:24 Impression: NG tube in satisfactory position. Small bowel obstruction. High Resolution CT 11/11/24 06:01 Impression: Moderate right pleural effusion and small left pleural effusion. Extensive presumed right lower lobe atelectasis versus possibly pneumonia. Partial left lower lobe atelectasis. Mild emphysema in the upper lobes. 4.8 x 4.0 cm heterogeneous left adrenal mass, similar to recent prior abdominal pelvic CT. Neoplastic/metastatic lesion is a consideration, versus acute adrenal hemorrhage/hematoma. Extensive wall thickening of the stomach and proximal duodenum. Correlate for infectious/inflammatory gastritis/duodenitis. Modified Barium Swallow 11/11/24 16:07 IMPRESSION: 1. Normal modified barium swallow. 2. Please refer to the speech therapy report for recommendations. Pelvis Ultrasound 11/11/24 16:08 IMPRESSION: 1. Uterus and ovaries not visualized on transabdominal imaging. The patient is confused and would not tolerate transvaginal imaging. Labs Labs: Laboratory Results - last 24 hr 11/12/24 11/12/24 11/13/24 17:21 19:45 06:20 WBC 13.1 H RBC 3.87 L Hgb 11.5 L Hct 35.2 L MCV 91.0 MCH 29.7 MCHC 32.7 RDW 17.2 H Plt Count 290 MPV 12.2 H Sodium 139 Potassium 3.6 Chloride 112 H Carbon Dioxide 23 Anion Gap 4 BUN 14 Creatinine 0.92 Estim Creat Clear Calc 30 Estimated GFR 58 L Glucose 99 POC Capillary Glucose 105 213 H Calcium 7.4 L Quality VTE Prophylaxis VTE prophylaxis: pharmacologic ordered Hospitalist [facility] Advance Care Plan I have confirmed that the patient's Advanced Care Plan is present, code status is documented, or surrogate decision maker is listed in patient medical record.: Yes Medication Reconciliation I have utilized all available resources to obtain, update and review the patients current medications (includes all prescriptions, OTC, herbals, cannabis, and nutritional supplements).: Yes
[2024-11-13 20:20] VITALS: PULSE 56; RESP 18; O2SAT 100
[2024-11-13] MEDS: MELATONIN 5 MG TABLET 10 MG PO (20:26)
[2024-11-13] MEDS: LOSARTAN POTASSIUM 50 MG TABLET PO (20:26)
[2024-11-13 21:35] VITALS: BP 136/72; PULSE 56; RESP 18; TEMP 36.4; O2SAT 100
[2024-11-14 06:00] VITALS: BP 142/62; PULSE 55; RESP 18; TEMP 36.1; O2SAT 97
[2024-11-14] MEDS: LEVOTHYROXINE SODIUM 150 MCG TABLET PO (06:16)
[2024-11-14 07:30] LABS: Basophils Percent Auto 0.2 % (0.2-1.2); Eosinophils Absolute Auto 0.1 K/mm3 (0-0.3); Eosinophils Percent Auto 0.4 % (0-4.4); Hematocrit 33.6 % (37.0-47.0); Hemoglobin 11.2 g/dL (12.0-15.0); Immature Granulocyte Absolute 0.05 K/mm3 (0.00-0.031); Immature Granulocyte Percent A 0.4 % (0-0.5); Lymphocytes Absolute Auto 0.91 K/mm3 (0.9-3.2); Lymphocytes Percent Auto 7.4 % (18.3-44.2); Mean Corpuscular HGB Conc 33.3 g/dl (32-36); Mean Corpuscular Hemoglobin 29.9 pg (26-34); Mean Corpuscular Volume 89.6 fl (80-100); Mean Platelet Volume 12.4 fl (7.4-10.4); Monocytes Absolute Auto 0.7 K/mm3 (0.1-0.6); Monocytes Percent Auto 5.3 % (2.6-8.5); Neutrophils Absolute Auto 10.6 K/mm3 (1.3-6.7); Neutrophils Percent Auto 86.3 % (45.5-73.1); Platelet Count Result 322 k/mm3 (150-375); Red Blood Count 3.75 M/mm3 (4.2-5.4); Red Cell Distribution Width 17.3 % (11.5-14.5); White Blood Count 12.2 K/mm3 (4.5-10.0)
[2024-11-14 07:46] LABS: Glucose Point of Care 75 mg/dl (65-105)
[2024-11-14 07:49] LABS: Anion Gap 2 mmol/L (4-12); Blood Urea Nitrogen 16 mg/dL (7-17); CRP. 3.7 mg/dL (<1.0); Calcium 7.6 mg/dL (8.4-10.2); Carbon Dioxide 25 mmol/L (22-30); Chloride 110 mmol/L (98-107); Estimated CRCL calculation 34 ml/min; Estimated Glomerular Filt Rate > 60; Glucose 79 mg/dL (65-110); Sodium 137 mmol/L (137-145)
[2024-11-14] MEDS: DONEPEZIL HCL 5 MG TABLET 10 MG PO (08:44)
[2024-11-14] MEDS: PANTOPRAZOLE 40 MG TABLET PO ×2 (08:44→20:24)
[2024-11-14] MEDS: ENOXAPARIN 30 MG/0.3 ML SYRINGE SUB-Q (08:45)
[2024-11-14] MEDS: CHOLESTYRAMINE (W/ SUGAR) 4 GM POWD.PACK PO (10:16)
--- NOTE | 2024-11-14 11:25 | PM.PNGS ---
Progress Note: A&P Assessment and Plan (1) Chronic diarrhea: Code(s): K52.9 - Noninfective gastroenteritis and colitis, unspecified Status: Chronic Assessment and Plan: Diarrhea much improved. Will decrease cholestyramine to once daily and continue loperamide as neeeded. (2) S/P small bowel resection: Code(s): Z90.49 - Acquired absence of other specified parts of digestive tract Status: Acute Assessment and Plan: Resolved following surgery. (3) History of umbilical hernia repair: Code(s): Z98.890 - Other specified postprocedural states; Z87.19 - Personal history of other diseases of the digestive system Status: Acute Assessment and Plan: CT scan yesterday showed some mural thickening and edema of the small bowel proximal to the anastomosis with other changes that are likely postoperative. No signs of a bowel obstruction, ileus, or abscess. Her abdominal pain has improved significantly and she is no longer having any nausea or vomiting today. Repair is intact. Incision is healing well. Will remove daphne and LUIS ANGEL drain today. Her umbilicus appears ischemic but no signs of infection as of now. Will ask the wound care nurses to evaluate this area for recommendations on wound care. Continue increasing activity, PT/OT following. D/c plan is to go to [facility]. Patient could potentially be discharged in the next 1-2 days if placement is set up and she is medically stable. (4) Incarcerated umbilical hernia: Code(s): K42.0 - Umbilical hernia with obstruction, without gangrene Status: Acute Assessment and Plan: Resolved with surgery (5) SBO (small bowel obstruction): Code(s): K56.609 - Unspecified intestinal obstruction, unspecified as to partial versus complete obstruction Status: Acute Assessment and Plan: Resolved with surgery. Repeat CT yesterday showed no signs of a small bowel obstruction. (6) Left adrenal mass: Code(s): E27.8 - Other specified disorders of adrenal gland Status: Chronic Plan I have discussed the patient's case and plan of care with Dr. Decker. Subjective Subjective Date/Time Seen: 11/14/24 11:25 Post Op day: 7 (Repair 4 cm umbilical hernia, small bowel resection with anastomosis, appendectomy) Patient reports: feels better, pain is less, tolerating liquids well, flatus and afebrile Interval history: Patient is sitting up in the chair today. She reports feeling much better today. She denies any abdominal pain at this time. She denies nausea or any vomiting since yesterday afternoon. Nursing agrees she has not had any vomiting and no diarrhea since yesterday. She has no specific complaints. CC is working on authorization for [facility] on discharge. No output from the LUIS ANGEL in 2 days. Exam Const: General: comfortable and no acute distress Orientation/consciousness: oriented to person and oriented to place GI: Inspection: non-distended and other (LUIS ANGEL drain with old bloody drainage) GI Palp: Yes Soft to palpation, Yes Tenderness to palpation present (GI) (only minimal incisional tenderness), No Guarding due to palpation present (GI) and No Rebound tenderness present Auscultation: normal bowel sounds Other: infraumbilical incision is dry with daphne intact and small area of ischemic skin at the staple line, no drainage or skin separation. There is some ischemic skin with scant yellow drainage at the umbilicus. Objective Data Vital Signs Vital Signs: Vital Signs - 24 hr 11/13/24 14:00 11/13/24 20:20 11/13/24 21:35 Temperature 97.6 F 97.6 F Pulse Rate 60 56 L 56 L Respiratory Rate 18 18 18 Blood Pressure 115/53 L 136/72 Pulse Oximetry 95 100 100 Oxygen Delivery Room Air 11/14/24 06:00 Temperature 97.0 F L Pulse Rate 55 L Respiratory Rate 18 Blood Pressure 142/62 H Pulse Oximetry 97 Oxygen Delivery Intake/Output Intake/Output: Intake & Output 11/11/24 11/12/24 11/13/24 11/14/24 23:59 23:59 23:59 23:59 Intake Total 2069 1935 480 240 Output Total 30 150 Balance 2069 1905 330 240 Meds/Results Medications: Active Medications Generic Name Dose Route Start Last Admin Trade Name Freq PRN Reason Stop Dose Admin Acetaminophen 500 mg 11/11/24 10:56 Acetaminophen 500 Mg Tablet PO Q6H PRN Pain Rated 1-5 Atorvastatin Calcium 20 mg 11/10/24 18:00 11/13/24 16:23 Atorvastatin 20 Mg Tablet PO 20 mg QPM SALMA Administration Cholestyramine Resin 4 gm 11/12/24 18:00 11/14/24 10:16 Cholestyramine (W/ Sugar) 4 Gm Powd.Pack PO 4 gm BID@1000,1800 SALMA Administration Donepezil HCl 10 mg 11/11/24 09:00 11/14/24 08:44 Donepezil Hcl 5 Mg Tablet PO 10 mg DAILY SALMA Administration Enoxaparin Sodium 30 mg 11/08/24 09:00 11/14/24 08:45 Enoxaparin 30 Mg/0.3 Ml Syringe SUB-Q 30 mg DAILY SALMA Administration Levothyroxine Sodium 150 mcg 11/11/24 06:30 11/14/24 06:16 Levothyroxine Sodium 150 Mcg Tablet PO 150 mcg DAILY@0630 SALMA Administration Loperamide HCl 2 mg 11/12/24 11:36 11/13/24 20:25 Loperamide Hcl 2 Mg Capsule PO 2 mg PRN PRN Administration Diarrhea Losartan Potassium 50 mg 11/10/24 21:00 11/13/24 20:26 Losartan Potassium 50 Mg Tablet PO 50 mg QHS SALMA Administration Melatonin 10 mg 11/10/24 14:41 11/13/24 20:26 Melatonin 5 Mg Tablet PO 10 mg HS PRN Administration Insomnia Naloxone HCl 0.1 mg 11/07/24 17:59 Naloxone Hcl 0.4 Mg/Ml Vial IV PUSH Q2M PRN Opiate Reversal Ondansetron HCl 4 mg 11/13/24 10:51 11/13/24 14:37 Ondansetron Inj 4 Mg/2 Ml Vial IV PUSH 4 mg Q4H PRN Administration Nausea And Vomiting Pantoprazole Sodium 40 mg 11/10/24 21:00 11/14/24 08:44 Pantoprazole 40 Mg Tablet PO 40 mg Q12HR SALMA Administration Tramadol HCl 50 mg 11/11/24 10:56 11/13/24 20:25 Tramadol Hcl (*Crx) 50 Mg Tablet PO 50 mg Q4H PRN Administration Pain Rated 6 or Greater Radiology Results: ITS Impressions Chest X-Ray 11/07/24 05:18 Impression: Possible 15 mm right apical pulmonary nodule versus confluence of shadows. Chest CT recommended to confirm or exclude pulmonary nodule. Abdomen X-Ray 11/07/24 05:24 Impression: NG tube in satisfactory position. Small bowel obstruction. High Resolution CT 11/11/24 06:01 Impression: Moderate right pleural effusion and small left pleural effusion. Extensive presumed right lower lobe atelectasis versus possibly pneumonia. Partial left lower lobe atelectasis. Mild emphysema in the upper lobes. 4.8 x 4.0 cm heterogeneous left adrenal mass, similar to recent prior abdominal pelvic CT. Neoplastic/metastatic lesion is a consideration, versus acute adrenal hemorrhage/hematoma. Extensive wall thickening of the stomach and proximal duodenum. Correlate for infectious/inflammatory gastritis/duodenitis. Modified Barium Swallow 11/11/24 16:07 IMPRESSION: 1. Normal modified barium swallow. 2. Please refer to the speech therapy report for recommendations. Pelvis Ultrasound 11/11/24 16:08 IMPRESSION: 1. Uterus and ovaries not visualized on transabdominal imaging. The patient is confused and would not tolerate transvaginal imaging. Abdomen/Pelvis CT 11/13/24 16:19 IMPRESSION: Mural thickening and edema within the efferent limb of the distal small bowel, just proximal to the anastomosis. Limited evaluation of the integrity of the anastomosis, secondary to patient's recent perioperative state. Significant distention and surrounding venous congestion within the distal branches of the ileocolic vein/right colic vein, possibly perioperative in origin. No central filling defect is appreciated. Bilateral pleural effusions with adjacent compressive atelectasis. Indeterminate focus within the left kidney. Splenic cyst. Large left adrenal mass. Labs Labs: Laboratory Results - last 24 hr 11/14/24 11/14/24 07:03 07:39 WBC 12.2 H RBC 3.75 L Hgb 11.2 L Hct 33.6 L MCV 89.6 MCH 29.9 MCHC 33.3 RDW 17.3 H Plt Count 322 MPV 12.4 H Immature Gran % (Auto) 0.4 Neut % (Auto) 86.3 H Lymph % (Auto) 7.4 L Emery % (Auto) 5.3 Eos % (Auto) 0.4 Baso % (Auto) 0.2 Lymph # (Auto) 0.91 Emery # (Auto) 0.7 H Eos # (Auto) 0.1 Baso # (Auto) 0.0 Abs Immat Gran (auto) 0.05 H Absolute Neuts (auto) 10.6 H Absolute Nucleated RBC 0.000 Nucleated RBC % 0.0 Sodium 137 Potassium 4.0 Chloride 110 H Carbon Dioxide 25 Anion Gap 2 L BUN 16 Creatinine 0.82 Estim Creat Clear Calc 34 Estimated GFR > 60 Glucose 79 POC Capillary Glucose 75 Calcium 7.6 L C-Reactive Protein 3.7 H
--- NOTE | 2024-11-14 12:55 | PM.IMPN ---
Progress Note: A&P Assessment and Plan (1) SBO (small bowel obstruction): Code(s): K56.609 - Unspecified intestinal obstruction, unspecified as to partial versus complete obstruction Status: Acute Assessment and Plan: Patient presented with abdominal pain and found to have SBO from incarcerated umbilical hernia. CT Abd showing diffuse small bowel dilation, transition point at the entrance of an umbilical hernia which contains a loop of nondilated distal ileum. No large bowel dilation. Normal appendix. Diverticulosis without diverticulitis. NGT placed. Repeat imaging showing SBO. General surgery consulted and appreciate their input. Patient underwent repair 4 cm umbilical hernia, small bowel resection with anastomosis and appendectomy on 11/07/24 Tolerated procedure well. Continue pain control. Bowel fxn better. ADAT, now on low-fiber diet. She was coughing with liquid so ST evaluation performed. Speech therapy evaluation was incomplete but they felt patient could safely proceed with minced and moist diet. Did well with thin liquids and did not need thickener. Continue minced and moist diet. Further mgt per general surgery. (2) Incarcerated umbilical hernia: Code(s): K42.0 - Umbilical hernia with obstruction, without gangrene Status: Acute Assessment and Plan: Mgt as above. (3) Lfrpr-he-dcceixs kidney injury: Code(s): N17.9 - Acute kidney failure, unspecified; N18.9 - Chronic kidney disease, unspecified Status: Acute Assessment and Plan: BUN 70 and Cr 2.2 on admission. Baseline Cr 1.3-1.6 over the past year. CT scan with conrast showing no hydronephrosis or obstructing calcification; 1.6 cm indeterminate density left upper pole lesion (measured 1.5cm in January 2023); multiple bilateral subcentimeter renal hypodensities, too small to characterize; mild bladder wall edema possibly cystitis. UA consistent with UTI. Suspect dehydration and/or ATN and/or from infection causing the JC Cr currently wnl and IV fluids stopped. Continue to follow and monitor UOP, electrolytes and renal fxn (4) Abnormal CT of the abdomen: Code(s): R93.5 - Abnormal findings on diagnostic imaging of other abdominal regions, including retroperitoneum Status: Acute Assessment and Plan: CXR showing possibly 15mm right apical pulm nodule. CT abd/pelvis showing RML and RLL bronchiectasis and bronchial wall thickening. Ground glass and centrilobular nodular opacities adjacent to the area of bronchiectasis in the right lower lobe. Influenza, RSV and COVID PCR negative. Also with left adrenal mass at 5.1cm that has grown since January 2023 Also noted with fluid distended endometrial cavity with irregular intraluminal hyperdensity and gas, may represent endometrial hemorrhage, infectious material, or less likely a polyp. Pelvic US incomplete. CT chest does not show bronchiectasis or an apical pulmonary nodule. left adrenal mass again noted and will need to be followed. Cortisol high but could be from recent surgery. Also on narcotics that can suppress cortisol release. Renin/issac still pending. Will need repeat cortisol level after discharge. Repeat pelvic US: Uterus and ovaries not visualized on transabdominal imaging. The patient is confused and would not tolerate transvaginal imaging. Conservative mgt for now. (5) UTI (urinary tract infection): Qualifiers: Hematuria presence: with hematuria Urinary tract infection type: acute cystitis Qualified Code(s): N30.01 - Acute cystitis with hematuria Code(s): N39.0 - Urinary tract infection, site not specified Status: Acute Assessment and Plan: UA is consistent with UTI. UCx collected. Rocephin started. Prior UTIs august-sensitive. UCx growing Proteus sensitive to Rocephin and Levaquin. abx therapy completed. (6) HTN (hypertension): Qualifiers: Hypertension type: essential hypertension Qualified Code(s): I10 - Essential (primary) hypertension Code(s): I10 - Essential (primary) hypertension Status: Acute Assessment and Plan: Patient's blood pressure reviewed on 11/14 Blood pressure well controlled Continue to follow Plan Hypothyroidism - continue Synthroid DVT prophylaxis - lovenox Code status - DNR Disp - SNF Time Spent With Patient Time with patient: 15 - 25 minutes Subjective Date/time seen: 11/14/24 12:55 Patient on bedrest and states she's feeling alright. Denies pain and states she's eating ok. Interval history: Patient pleasantly confused on bedrest, looks comfortable, in no acute distress. Patient presented with abdominal pain and noted with SBO with herniation of a loop of distal ileum into an umbilical hernia. She underwent umbilical hernia repair, small bowel resection with anastomosis and appendectomy per general surgery. Patient currently tolerating diet fairly well and awaiting placement to SNF. Review of Systems Review of Systems: All systems reviewed & are unremarkable except as noted in HPI and below Exam Narrative: General: Well appearing, generalized muscle weakness. HEENT: Atraumatic, PERRL, EOM, moist mucosa. NECK: Supple. Lungs: Clear bilaterally. Heart: RRR, no murmurs. Abdomen: Soft, non-tender, non-distended, +BS, daphne intact mid-abdomen with no drainage. J-P drain intact with small bloody drainage. Neuro: Oriented to self, no focal neuro deficits noted. Psych: Pleasantly confused and co-operative. Objective Data Vital Signs Vital Signs: Vital Signs - 24 hr 11/13/24 14:00 11/13/24 20:20 11/13/24 21:35 Temperature 97.6 F 97.6 F Pulse Rate 60 56 L 56 L Respiratory Rate 18 18 18 Blood Pressure 115/53 L 136/72 Pulse Oximetry 95 100 100 Oxygen Delivery Room Air 11/14/24 06:00 11/14/24 08:45 Temperature 97.0 F L Pulse Rate 55 L Respiratory Rate 18 Blood Pressure 142/62 H Pulse Oximetry 97 Oxygen Delivery Room Air Intake/Output Intake/Output: Intake & Output 11/11/24 11/12/24 11/13/24 11/14/24 23:59 23:59 23:59 23:59 Intake Total 2069 1935 480 240 Output Total 30 150 Balance 2069 1905 330 240 Meds/Results Medications: Active Medications Generic Name Dose Route Start Last Admin Trade Name Freq PRN Reason Stop Dose Admin Acetaminophen 500 mg 11/11/24 10:56 Acetaminophen 500 Mg Tablet PO Q6H PRN Pain Rated 1-5 Atorvastatin Calcium 20 mg 11/10/24 18:00 11/13/24 16:23 Atorvastatin 20 Mg Tablet PO 20 mg QPM SALMA Administration Cholestyramine Resin 4 gm 11/15/24 10:00 Cholestyramine (W/ Sugar) 4 Gm Powd.Pack PO DAILY@1000 SALMA Donepezil HCl 10 mg 11/11/24 09:00 11/14/24 08:44 Donepezil Hcl 5 Mg Tablet PO 10 mg DAILY SALMA Administration Enoxaparin Sodium 30 mg 11/08/24 09:00 11/14/24 08:45 Enoxaparin 30 Mg/0.3 Ml Syringe SUB-Q 30 mg DAILY SALMA Administration Levothyroxine Sodium 150 mcg 11/11/24 06:30 11/14/24 06:16 Levothyroxine Sodium 150 Mcg Tablet PO 150 mcg DAILY@0630 SALMA Administration Loperamide HCl 2 mg 11/12/24 11:36 11/13/24 20:25 Loperamide Hcl 2 Mg Capsule PO 2 mg PRN PRN Administration Diarrhea Losartan Potassium 50 mg 11/10/24 21:00 11/13/24 20:26 Losartan Potassium 50 Mg Tablet PO 50 mg QHS SALMA Administration Melatonin 10 mg 11/10/24 14:41 11/13/24 20:26 Melatonin 5 Mg Tablet PO 10 mg HS PRN Administration Insomnia Naloxone HCl 0.1 mg 11/07/24 17:59 Naloxone Hcl 0.4 Mg/Ml Vial IV PUSH Q2M PRN Opiate Reversal Ondansetron HCl 4 mg 11/13/24 10:51 11/13/24 14:37 Ondansetron Inj 4 Mg/2 Ml Vial IV PUSH 4 mg Q4H PRN Administration Nausea And Vomiting Pantoprazole Sodium 40 mg 11/10/24 21:00 11/14/24 08:44 Pantoprazole 40 Mg Tablet PO 40 mg Q12HR SALMA Administration Tramadol HCl 50 mg 11/11/24 10:56 11/13/24 20:25 Tramadol Hcl (*Crx) 50 Mg Tablet PO 50 mg Q4H PRN Administration Pain Rated 6 or Greater Radiology Results: ITS Impressions Chest X-Ray 11/07/24 05:18 Impression: Possible 15 mm right apical pulmonary nodule versus confluence of shadows. Chest CT recommended to confirm or exclude pulmonary nodule. Abdomen X-Ray 11/07/24 05:24 Impression: NG tube in satisfactory position. Small bowel obstruction. High Resolution CT 11/11/24 06:01 Impression: Moderate right pleural effusion and small left pleural effusion. Extensive presumed right lower lobe atelectasis versus possibly pneumonia. Partial left lower lobe atelectasis. Mild emphysema in the upper lobes. 4.8 x 4.0 cm heterogeneous left adrenal mass, similar to recent prior abdominal pelvic CT. Neoplastic/metastatic lesion is a consideration, versus acute adrenal hemorrhage/hematoma. Extensive wall thickening of the stomach and proximal duodenum. Correlate for infectious/inflammatory gastritis/duodenitis. Modified Barium Swallow 11/11/24 16:07 IMPRESSION: 1. Normal modified barium swallow. 2. Please refer to the speech therapy report for recommendations. Pelvis Ultrasound 11/11/24 16:08 IMPRESSION: 1. Uterus and ovaries not visualized on transabdominal imaging. The patient is confused and would not tolerate transvaginal imaging. Abdomen/Pelvis CT 11/13/24 16:19 IMPRESSION: Mural thickening and edema within the efferent limb of the distal small bowel, just proximal to the anastomosis. Limited evaluation of the integrity of the anastomosis, secondary to patient's recent perioperative state. Significant distention and surrounding venous congestion within the distal branches of the ileocolic vein/right colic vein, possibly perioperative in origin. No central filling defect is appreciated. Bilateral pleural effusions with adjacent compressive atelectasis. Indeterminate focus within the left kidney. Splenic cyst. Large left adrenal mass. Labs Labs: Laboratory Results - last 24 hr 11/14/24 11/14/24 07:03 07:39 WBC 12.2 H RBC 3.75 L Hgb 11.2 L Hct 33.6 L MCV 89.6 MCH 29.9 MCHC 33.3 RDW 17.3 H Plt Count 322 MPV 12.4 H Immature Gran % (Auto) 0.4 Neut % (Auto) 86.3 H Lymph % (Auto) 7.4 L [place] % (Auto) 5.3 Eos % (Auto) 0.4 Baso % (Auto) 0.2 Lymph # (Auto) 0.91 [place] # (Auto) 0.7 H Eos # (Auto) 0.1 Baso # (Auto) 0.0 Abs Immat Gran (auto) 0.05 H Absolute Neuts (auto) 10.6 H Absolute Nucleated RBC 0.000 Nucleated RBC % 0.0 Sodium 137 Potassium 4.0 Chloride 110 H Carbon Dioxide 25 Anion Gap 2 L BUN 16 Creatinine 0.82 Estim Creat Clear Calc 34 Estimated GFR > 60 Glucose 79 POC Capillary Glucose 75 Calcium 7.6 L C-Reactive Protein 3.7 H Quality VTE Prophylaxis VTE prophylaxis: pharmacologic ordered Hospitalist [facility] Advance Care Plan I have confirmed that the patient's Advanced Care Plan is present, code status is documented, or surrogate decision maker is listed in patient medical record.: Yes Medication Reconciliation I have utilized all available resources to obtain, update and review the patients current medications (includes all prescriptions, OTC, herbals, cannabis, and nutritional supplements).: Yes
[2024-11-14 14:00] VITALS: BP 135/63; PULSE 58; RESP 16; TEMP 36.3; O2SAT 100
[2024-11-14] MEDS: ATORVASTATIN 20 MG TABLET PO (18:37)
[2024-11-14 20:25] VITALS: BP 133/64; PULSE 57; RESP 20; TEMP 36; O2SAT 95
[2024-11-14] MEDS: LOSARTAN POTASSIUM 50 MG TABLET PO (20:25)
[2024-11-14] MEDS: MELATONIN 5 MG TABLET 10 MG PO (20:25)
[2024-11-15 05:25] VITALS: BP 126/70; PULSE 60; RESP 20; TEMP 36.7; O2SAT 93
[2024-11-15] MEDS: traMADol HCL (*CRX) 50 MG TABLET PO (05:36)
[2024-11-15] MEDS: LEVOTHYROXINE SODIUM 150 MCG TABLET PO (05:36)
[2024-11-15] MEDS: DONEPEZIL HCL 5 MG TABLET 10 MG PO (08:29)
[2024-11-15] MEDS: PANTOPRAZOLE 40 MG TABLET PO ×2 (08:29→20:30)
[2024-11-15] MEDS: ENOXAPARIN 30 MG/0.3 ML SYRINGE SUB-Q (08:34)
[2024-11-15] MEDS: CHOLESTYRAMINE (W/ SUGAR) 4 GM POWD.PACK PO (09:01)
--- NOTE | 2024-11-15 09:57 | PM.PNGS ---
Progress Note: A&P Assessment and Plan (1) S/P small bowel resection: Code(s): Z90.49 - Acquired absence of other specified parts of digestive tract Status: Acute Assessment and Plan: Patient now over a week since her surgery. Her daphne and her subcutaneous drains were removed yesterday. Her umbilicus is either bruised or ischemic. Appreciate wound nurse specialists reviewing and their recommendations. Will be lightly packed with Nu gauze daily and covered with dry gauze. Incision is healing well. Steri-Strips are in place. Will need dressing over drain site for a couple of more days. Patient no longer meets inpatient care from a postoperative standpoint. She is nauseated again today for unclear reasons. Her CT scan 2 days ago did not show an intra-abdominal process related to her surgery that may be the reason for her nausea and occasional vomiting. Once discharged, she should see me again in 3 weeks. Discharge instructions and follow-up instructions have been written. Please call if can be of any other assistance. (2) History of umbilical hernia repair: Code(s): Z98.890 - Other specified postprocedural states; Z87.19 - Personal history of other diseases of the digestive system Status: Acute Assessment and Plan: Postop day 8. Please see above. (3) SBO (small bowel obstruction): Code(s): K56.609 - Unspecified intestinal obstruction, unspecified as to partial versus complete obstruction Status: Acute Assessment and Plan: Small-bowel resection performed due to ischemic bowel at surgery (4) Incarcerated umbilical hernia: Code(s): K42.0 - Umbilical hernia with obstruction, without gangrene Status: Acute Assessment and Plan: Resolved (5) Diarrhea: Code(s): R19.7 - Diarrhea, unspecified Status: Chronic Assessment and Plan: Diarrhea was present prior to surgery. It resolved with twice a day Questran. Patient does not like the Questran. I reduced the dose to daily. Yesterday she had 6 BMs, on twice a day Questran she only had 2. Probably would be okay on daily Questran with p.r.n. Imodium. If further evaluation of her nausea or diarrhea needed, would ask Gastroenterology to see. (6) Left adrenal mass: Code(s): E27.8 - Other specified disorders of adrenal gland Status: Chronic Assessment and Plan: Testing has been ordered to evaluate for hormonal secretion. Hormonally active adrenal tumor could certainly cause diarrhea and other GI problems. Subjective Subjective Date/Time Seen: 11/15/24 09:57 Post Op day: #8 Patient reports: diarrhea (questran reduced to daily (she doesn't like it). Patient had 6 recorded BM's yesterday. Only had 2 day before while on Questran BID. Still has prn Imodium), nausea and afebrile Review of Systems Review of Systems: All systems reviewed & are unremarkable except as noted in HPI and below (HPI) Objective Data Vital Signs Vital Signs: Vital Signs - 24 hr 11/14/24 14:00 11/14/24 20:25 11/15/24 05:25 Temperature 36.3 C L 36.0 C L 36.7 C Pulse Rate 58 L 57 L 60 Respiratory Rate 16 20 20 Blood Pressure 135/63 133/64 126/70 Pulse Oximetry 100 95 93 Intake/Output Intake/Output: Intake & Output 11/12/24 11/13/24 11/14/24 11/15/24 23:59 23:59 23:59 23:59 Intake Total 1935 480 960 50 Output Total 30 150 Balance 1905 330 960 50 Meds/Results Medications: Active Medications Generic Name Dose Route Start Last Admin Trade Name Frandyq PRN Reason Stop Dose Admin Acetaminophen 500 mg 11/11/24 10:56 Acetaminophen 500 Mg Tablet PO Q6H PRN Pain Rated 1-5 Atorvastatin Calcium 20 mg 11/10/24 18:00 11/14/24 18:37 Atorvastatin 20 Mg Tablet PO 20 mg QPM SALMA Administration Cholestyramine Resin 4 gm 11/15/24 10:00 11/15/24 09:01 Cholestyramine (W/ Sugar) 4 Gm Powd.Pack PO 4 gm DAILY@1000 SALMA Administration Donepezil HCl 10 mg 11/11/24 09:00 11/15/24 08:29 Donepezil Hcl 5 Mg Tablet PO 10 mg DAILY SALMA Administration Enoxaparin Sodium 30 mg 11/08/24 09:00 11/15/24 08:34 Enoxaparin 30 Mg/0.3 Ml Syringe SUB-Q 30 mg DAILY SALMA Administration Levothyroxine Sodium 150 mcg 11/11/24 06:30 11/15/24 05:36 Levothyroxine Sodium 150 Mcg Tablet PO 150 mcg DAILY@0630 SALMA Administration Loperamide HCl 2 mg 11/12/24 11:36 11/13/24 20:25 Loperamide Hcl 2 Mg Capsule PO 2 mg PRN PRN Administration Diarrhea Losartan Potassium 50 mg 11/10/24 21:00 11/14/24 20:25 Losartan Potassium 50 Mg Tablet PO 50 mg QHS SALMA Administration Melatonin 10 mg 11/10/24 14:41 11/14/24 20:25 Melatonin 5 Mg Tablet PO 10 mg HS PRN Administration Insomnia Naloxone HCl 0.1 mg 11/07/24 17:59 Naloxone Hcl 0.4 Mg/Ml Vial IV PUSH Q2M PRN Opiate Reversal Ondansetron HCl 4 mg 11/13/24 10:51 11/13/24 14:37 Ondansetron Inj 4 Mg/2 Ml Vial IV PUSH 4 mg Q4H PRN Administration Nausea And Vomiting Pantoprazole Sodium 40 mg 11/10/24 21:00 11/15/24 08:29 Pantoprazole 40 Mg Tablet PO 40 mg Q12HR SALMA Administration Tramadol HCl 50 mg 11/11/24 10:56 11/15/24 05:36 Tramadol Hcl (*Crx) 50 Mg Tablet PO 50 mg Q4H PRN Administration Pain Rated 6 or Greater Radiology Results: ITS Impressions Chest X-Ray 11/07/24 05:18 Impression: Possible 15 mm right apical pulmonary nodule versus confluence of shadows. Chest CT recommended to confirm or exclude pulmonary nodule. Abdomen X-Ray 11/07/24 05:24 Impression: NG tube in satisfactory position. Small bowel obstruction. High Resolution CT 11/11/24 06:01 Impression: Moderate right pleural effusion and small left pleural effusion. Extensive presumed right lower lobe atelectasis versus possibly pneumonia. Partial left lower lobe atelectasis. Mild emphysema in the upper lobes. 4.8 x 4.0 cm heterogeneous left adrenal mass, similar to recent prior abdominal pelvic CT. Neoplastic/metastatic lesion is a consideration, versus acute adrenal hemorrhage/hematoma. Extensive wall thickening of the stomach and proximal duodenum. Correlate for infectious/inflammatory gastritis/duodenitis. Modified Barium Swallow 11/11/24 16:07 IMPRESSION: 1. Normal modified barium swallow. 2. Please refer to the speech therapy report for recommendations. Pelvis Ultrasound 11/11/24 16:08 IMPRESSION: 1. Uterus and ovaries not visualized on transabdominal imaging. The patient is confused and would not tolerate transvaginal imaging. Abdomen/Pelvis CT 11/13/24 16:19 IMPRESSION: Mural thickening and edema within the efferent limb of the distal small bowel, just proximal to the anastomosis. Limited evaluation of the integrity of the anastomosis, secondary to patient's recent perioperative state. Significant distention and surrounding venous congestion within the distal branches of the ileocolic vein/right colic vein, possibly perioperative in origin. No central filling defect is appreciated. Bilateral pleural effusions with adjacent compressive atelectasis. Indeterminate focus within the left kidney. Splenic cyst. Large left adrenal mass.
[2024-11-15 14:00] VITALS: BP 115/58; PULSE 54; RESP 17; TEMP 36.2; O2SAT 95
--- NOTE | 2024-11-15 16:34 | PM.IMPN ---
Progress Note: A&P Assessment and Plan (1) SBO (small bowel obstruction): Code(s): K56.609 - Unspecified intestinal obstruction, unspecified as to partial versus complete obstruction Status: Acute Assessment and Plan: Patient presented with abdominal pain and found to have SBO from incarcerated umbilical hernia. CT Abd showing diffuse small bowel dilation, transition point at the entrance of an umbilical hernia which contains a loop of nondilated distal ileum. No large bowel dilation. Normal appendix. Diverticulosis without diverticulitis. NGT placed. Repeat imaging showing SBO. General surgery consulted and appreciate their input. Patient underwent repair 4 cm umbilical hernia, small bowel resection with anastomosis and appendectomy on 11/07/24 Tolerated procedure well. Bowel fxn better. ADAT, now on low-fiber diet and tolerating well. Continue pain control. She was coughing with liquid so ST evaluation performed. Speech therapy evaluation was incomplete but they felt patient could safely proceed with minced and moist diet. Did well with thin liquids and does not need thickener. Continue minced and moist diet. General surgery cleared pt for discharge and awaiting placement. (2) Incarcerated umbilical hernia: Code(s): K42.0 - Umbilical hernia with obstruction, without gangrene Status: Acute Assessment and Plan: Mgt as above. (3) Beyvw-ro-tngwzfv kidney injury: Code(s): N17.9 - Acute kidney failure, unspecified; N18.9 - Chronic kidney disease, unspecified Status: Acute Assessment and Plan: BUN 70 and Cr 2.2 on admission. Baseline Cr 1.3-1.6 over the past year. CT scan with conrast showing no hydronephrosis or obstructing calcification; 1.6 cm indeterminate density left upper pole lesion (measured 1.5cm in January 2023); multiple bilateral subcentimeter renal hypodensities, too small to characterize; mild bladder wall edema possibly cystitis. UA consistent with possible UTI. Suspect dehydration and/or ATN and/or from infection causing the JC Cr currently wnl and IV fluids stopped. Continue to follow and monitor UOP, electrolytes and renal fxn (4) Abnormal CT of the abdomen: Code(s): R93.5 - Abnormal findings on diagnostic imaging of other abdominal regions, including retroperitoneum Status: Acute Assessment and Plan: CXR showing possibly 15mm right apical pulm nodule. CT abd/pelvis showing RML and RLL bronchiectasis and bronchial wall thickening. Ground glass and centrilobular nodular opacities adjacent to the area of bronchiectasis in the right lower lobe. Influenza, RSV and COVID PCR negative. Also with left adrenal mass at 5.1cm that has grown since January 2023 Also noted with fluid distended endometrial cavity with irregular intraluminal hyperdensity and gas, may represent endometrial hemorrhage, infectious material, or less likely a polyp. Pelvic US incomplete. CT chest does not show bronchiectasis or an apical pulmonary nodule. left adrenal mass again noted and will need to be followed. Cortisol high but could be from recent surgery. Also on narcotics that can suppress cortisol release. Renin/issac still pending. Will need repeat cortisol level after discharge. Repeat pelvic US: Uterus and ovaries not visualized on transabdominal imaging. The patient is confused and would not tolerate transvaginal imaging. Conservative mgt for now. (5) UTI (urinary tract infection): Qualifiers: Hematuria presence: with hematuria Urinary tract infection type: acute cystitis Qualified Code(s): N30.01 - Acute cystitis with hematuria Code(s): N39.0 - Urinary tract infection, site not specified Status: Acute Assessment and Plan: UA is consistent with UTI. UCx collected. Rocephin started. Prior UTIs august-sensitive. UCx growing Proteus sensitive to Rocephin and Levaquin. abx therapy completed. (6) HTN (hypertension): Qualifiers: Hypertension type: essential hypertension Qualified Code(s): I10 - Essential (primary) hypertension Code(s): I10 - Essential (primary) hypertension Status: Acute Assessment and Plan: Patient's blood pressure reviewed. Blood pressure well controlled Continue to follow Plan Hypothyroidism - continue Synthroid DVT prophylaxis - lovenox Code status - DNR Disp - SNF Time Spent With Patient Time with patient: 15 - 25 minutes Subjective Date/time seen: 11/15/24 16:34 Patient states she feels alright right now. States she was having nausea and stomach discomfort earlier, maybe due to coughing up sputum, but feels better now. Interval history: Patient fairly oriented with some slight confusion on bedrest, looks comfortable. Noted with some intermittent coughs with congestion but states she's ok and will cough out sputum herself without requiring any medications. Patient presented with abdominal pain and noted with SBO with herniation of a loop of distal ileum into an umbilical hernia. She underwent umbilical hernia repair, small bowel resection with anastomosis and appendectomy per general surgery. Patient currently tolerating diet fairly well and awaiting placement to SNF. Review of Systems Review of Systems: All systems reviewed & are unremarkable except as noted in HPI and below Exam Narrative: General: Well appearing, generalized muscle weakness. HEENT: Atraumatic, PERRL, EOM, moist mucosa. NECK: Supple. Lungs: Crackles to bases, congestion. Heart: RRR, no murmurs. Abdomen: Soft, non-tender, non-distended, +BS, daphne removed and ster-strips intact to mid-abdomen incision. J-P drain removed and incision with no bleeding signs. Neuro: Fairly well oriented but has some confusion episodes. No focal neuro deficits noted. Psych: Pleasantly and co-operative. Objective Data Vital Signs Vital Signs: Vital Signs - 24 hr 11/14/24 20:25 11/15/24 05:25 11/15/24 08:00 Temperature 96.8 F L 98.1 F Pulse Rate 57 L 60 Respiratory Rate 20 20 Blood Pressure 133/64 126/70 Pulse Oximetry 95 93 Oxygen Delivery Room Air 11/15/24 14:00 Temperature 97.1 F L Pulse Rate 54 L Respiratory Rate 17 Blood Pressure 115/58 L Pulse Oximetry 95 Oxygen Delivery Intake/Output Intake/Output: Intake & Output 11/12/24 11/13/24 11/14/24 11/15/24 23:59 23:59 23:59 23:59 Intake Total 1935 480 960 170 Output Total 30 150 Balance 1905 330 960 170 Meds/Results Medications: Active Medications Generic Name Dose Route Start Last Admin Trade Name Freq PRN Reason Stop Dose Admin Acetaminophen 500 mg 11/11/24 10:56 Acetaminophen 500 Mg Tablet PO Q6H PRN Pain Rated 1-5 Atorvastatin Calcium 20 mg 11/10/24 18:00 11/14/24 18:37 Atorvastatin 20 Mg Tablet PO 20 mg QPM SALMA Administration Cholestyramine Resin 4 gm 11/15/24 10:00 11/15/24 09:01 Cholestyramine (W/ Sugar) 4 Gm Powd.Pack PO 4 gm DAILY@1000 SALMA Administration Donepezil HCl 10 mg 11/11/24 09:00 11/15/24 08:29 Donepezil Hcl 5 Mg Tablet PO 10 mg DAILY SALMA Administration Enoxaparin Sodium 30 mg 11/08/24 09:00 11/15/24 08:34 Enoxaparin 30 Mg/0.3 Ml Syringe SUB-Q 30 mg DAILY SALMA Administration Levothyroxine Sodium 150 mcg 11/11/24 06:30 11/15/24 05:36 Levothyroxine Sodium 150 Mcg Tablet PO 150 mcg DAILY@0630 SALMA Administration Loperamide HCl 2 mg 11/12/24 11:36 11/13/24 20:25 Loperamide Hcl 2 Mg Capsule PO 2 mg PRN PRN Administration Diarrhea Losartan Potassium 50 mg 11/10/24 21:00 11/14/24 20:25 Losartan Potassium 50 Mg Tablet PO 50 mg QHS SALMA Administration Melatonin 10 mg 11/10/24 14:41 11/14/24 20:25 Melatonin 5 Mg Tablet PO 10 mg HS PRN Administration Insomnia Naloxone HCl 0.1 mg 11/07/24 17:59 Naloxone Hcl 0.4 Mg/Ml Vial IV PUSH Q2M PRN Opiate Reversal Ondansetron HCl 4 mg 11/13/24 10:51 11/13/24 14:37 Ondansetron Inj 4 Mg/2 Ml Vial IV PUSH 4 mg Q4H PRN Administration Nausea And Vomiting Pantoprazole Sodium 40 mg 11/10/24 21:00 11/15/24 08:29 Pantoprazole 40 Mg Tablet PO 40 mg Q12HR SALMA Administration Tramadol HCl 50 mg 11/11/24 10:56 11/15/24 05:36 Tramadol Hcl (*Crx) 50 Mg Tablet PO 50 mg Q4H PRN Administration Pain Rated 6 or Greater Radiology Results: ITS Impressions Chest X-Ray 11/07/24 05:18 Impression: Possible 15 mm right apical pulmonary nodule versus confluence of shadows. Chest CT recommended to confirm or exclude pulmonary nodule. Abdomen X-Ray 11/07/24 05:24 Impression: NG tube in satisfactory position. Small bowel obstruction. High Resolution CT 11/11/24 06:01 Impression: Moderate right pleural effusion and small left pleural effusion. Extensive presumed right lower lobe atelectasis versus possibly pneumonia. Partial left lower lobe atelectasis. Mild emphysema in the upper lobes. 4.8 x 4.0 cm heterogeneous left adrenal mass, similar to recent prior abdominal pelvic CT. Neoplastic/metastatic lesion is a consideration, versus acute adrenal hemorrhage/hematoma. Extensive wall thickening of the stomach and proximal duodenum. Correlate for infectious/inflammatory gastritis/duodenitis. Modified Barium Swallow 11/11/24 16:07 IMPRESSION: 1. Normal modified barium swallow. 2. Please refer to the speech therapy report for recommendations. Pelvis Ultrasound 11/11/24 16:08 IMPRESSION: 1. Uterus and ovaries not visualized on transabdominal imaging. The patient is confused and would not tolerate transvaginal imaging. Abdomen/Pelvis CT 11/13/24 16:19 IMPRESSION: Mural thickening and edema within the efferent limb of the distal small bowel, just proximal to the anastomosis. Limited evaluation of the integrity of the anastomosis, secondary to patient's recent perioperative state. Significant distention and surrounding venous congestion within the distal branches of the ileocolic vein/right colic vein, possibly perioperative in origin. No central filling defect is appreciated. Bilateral pleural effusions with adjacent compressive atelectasis. Indeterminate focus within the left kidney. Splenic cyst. Large left adrenal mass. Quality VTE Prophylaxis VTE prophylaxis: pharmacologic ordered Hospitalist [facility] Advance Care Plan I have confirmed that the patient's Advanced Care Plan is present, code status is documented, or surrogate decision maker is listed in patient medical record.: Yes Medication Reconciliation I have utilized all available resources to obtain, update and review the patients current medications (includes all prescriptions, OTC, herbals, cannabis, and nutritional supplements).: Yes
[2024-11-15] MEDS: IPRATROPIUM 0.5 MG/ALBUTEROL SULFATE 2.5 MG AMPUL.NEB 3 ML INHALATION (17:20)
[2024-11-15] MEDS: ATORVASTATIN 20 MG TABLET PO (18:09)
[2024-11-15] MEDS: LOSARTAN POTASSIUM 50 MG TABLET PO (20:30)
[2024-11-15] MEDS: guaiFENesin 12 HR 600 MG TABCR PO (20:30)
[2024-11-15] MEDS: MELATONIN 5 MG TABLET 10 MG PO (20:31)
[2024-11-15 20:45] VITALS: BP 135/65; PULSE 59; RESP 16; TEMP 35.9; O2SAT 94
[2024-11-16 05:30] VITALS: BP 142/72; PULSE 56; RESP 20; TEMP 36.1; O2SAT 93
[2024-11-16] MEDS: LEVOTHYROXINE SODIUM 150 MCG TABLET PO (05:45)
[2024-11-16] MEDS: traMADol HCL (*CRX) 50 MG TABLET PO ×2 (05:45→21:08)
[2024-11-16] MEDS: guaiFENesin 12 HR 600 MG TABCR PO ×2 (09:40→21:08)
[2024-11-16] MEDS: DONEPEZIL HCL 5 MG TABLET 10 MG PO (09:40)
[2024-11-16] MEDS: PANTOPRAZOLE 40 MG TABLET PO ×2 (09:40→21:08)
[2024-11-16] MEDS: CHOLESTYRAMINE (W/ SUGAR) 4 GM POWD.PACK PO (09:44)
[2024-11-16] MEDS: ENOXAPARIN 30 MG/0.3 ML SYRINGE SUB-Q (09:46)
--- NOTE | 2024-11-16 12:53 | PM.IMPN ---
Progress Note: A&P Assessment and Plan (1) SBO (small bowel obstruction): Code(s): K56.609 - Unspecified intestinal obstruction, unspecified as to partial versus complete obstruction Status: Acute Assessment and Plan: Patient presented with abdominal pain and found to have SBO from incarcerated umbilical hernia. CT Abd showing diffuse small bowel dilation, transition point at the entrance of an umbilical hernia which contains a loop of nondilated distal ileum. No large bowel dilation. Normal appendix. Diverticulosis without diverticulitis. NGT placed. Repeat imaging showing SBO. General surgery consulted and appreciate their input. Patient underwent repair 4 cm umbilical hernia, small bowel resection with anastomosis and appendectomy on 11/07/24 Tolerated procedure well. Bowel fxn better. ADAT, now on low-fiber diet and tolerating well. Continue pain control. She was coughing with liquid so ST evaluation performed. Speech therapy evaluation was incomplete but they felt patient could safely proceed with minced and moist diet. Did well with thin liquids and does not need thickener. Continue minced and moist diet. General surgery cleared pt for discharge and awaiting placement. (2) Incarcerated umbilical hernia: Code(s): K42.0 - Umbilical hernia with obstruction, without gangrene Status: Acute Assessment and Plan: Mgt as above. (3) Ghwyo-cd-ddetnld kidney injury: Code(s): N17.9 - Acute kidney failure, unspecified; N18.9 - Chronic kidney disease, unspecified Status: Acute Assessment and Plan: BUN 70 and Cr 2.2 on admission. Baseline Cr 1.3-1.6 over the past year. CT scan with conrast showing no hydronephrosis or obstructing calcification; 1.6 cm indeterminate density left upper pole lesion (measured 1.5cm in January 2023); multiple bilateral subcentimeter renal hypodensities, too small to characterize; mild bladder wall edema possibly cystitis. UA consistent with possible UTI. Suspect dehydration and/or ATN and/or from infection causing the JC Cr currently wnl and IV fluids stopped. Continue to follow and monitor UOP, electrolytes and renal fxn (4) Abnormal CT of the abdomen: Code(s): R93.5 - Abnormal findings on diagnostic imaging of other abdominal regions, including retroperitoneum Status: Acute Assessment and Plan: CXR showing possibly 15mm right apical pulm nodule. CT abd/pelvis showing RML and RLL bronchiectasis and bronchial wall thickening. Ground glass and centrilobular nodular opacities adjacent to the area of bronchiectasis in the right lower lobe. Influenza, RSV and COVID PCR negative. Also with left adrenal mass at 5.1cm that has grown since January 2023 Also noted with fluid distended endometrial cavity with irregular intraluminal hyperdensity and gas, may represent endometrial hemorrhage, infectious material, or less likely a polyp. Pelvic US incomplete. CT chest does not show bronchiectasis or an apical pulmonary nodule. left adrenal mass again noted and will need to be followed. Cortisol high but could be from recent surgery. Also on narcotics that can suppress cortisol release. Renin/issac still pending. Will need repeat cortisol level after discharge. Repeat pelvic US: Uterus and ovaries not visualized on transabdominal imaging. The patient is confused and would not tolerate transvaginal imaging. Conservative mgt for now. (5) UTI (urinary tract infection): Qualifiers: Hematuria presence: with hematuria Urinary tract infection type: acute cystitis Qualified Code(s): N30.01 - Acute cystitis with hematuria Code(s): N39.0 - Urinary tract infection, site not specified Status: Acute Assessment and Plan: UA is consistent with UTI. UCx collected. Rocephin started. Prior UTIs august-sensitive. UCx growing Proteus sensitive to Rocephin and Levaquin. abx therapy completed. (6) HTN (hypertension): Qualifiers: Hypertension type: essential hypertension Qualified Code(s): I10 - Essential (primary) hypertension Code(s): I10 - Essential (primary) hypertension Status: Acute Assessment and Plan: Patient's blood pressure reviewed. Blood pressure remains well controlled. Continue to follow. Plan Hypothyroidism - continue Synthroid DVT prophylaxis - lovenox Code status - DNR Disp - SNF Time Spent With Patient Time with patient: 15 - 25 minutes Subjective Date/time seen: 11/16/24 10:53 Patient states she feels alright but still has tenderness on surgical incision site. States tolerating diet ok and no nausea or emesis episodes this AM. Interval history: Patient presented with abdominal pain and found to have SBO from incarcerated umbilical hernia. Patient underwent repair 4 cm umbilical hernia, small bowel resection with anastomosis and appendectomy on 11/07/24 Bowel fxn stable. Now on low-fiber diet, minced and moist with thin liquids and tolerating well. General surgery cleared pt for discharge and awaiting placement. Review of Systems Review of Systems: All systems reviewed & are unremarkable except as noted in HPI and below Exam Narrative: General: Well appearing, generalized muscle weakness. HEENT: Atraumatic, PERRL, EOM, moist mucosa. NECK: Supple. Lungs: Crackles to bases with some congestion. Heart: RRR, no murmurs. Abdomen: Soft, non-tender, non-distended, +BS X4 Quads, daphne removed and ster-strips intact to mid-abdomen incision. J-P drain removed and incision with no bleeding signs. Neuro: Fairly well oriented but has some confusion episodes. No focal neuro deficits noted. Psych: Pleasant and co-operative. Objective Data Vital Signs Vital Signs: Vital Signs - 24 hr 11/15/24 14:00 11/15/24 20:00 11/15/24 20:45 Temperature 97.1 F L 96.7 F L Pulse Rate 54 L 59 L Respiratory Rate 17 16 Blood Pressure 115/58 L 135/65 Pulse Oximetry 95 94 Oxygen Delivery Room Air 11/16/24 05:30 Temperature 96.9 F L Pulse Rate 56 L Respiratory Rate 20 Blood Pressure 142/72 H Pulse Oximetry 93 Oxygen Delivery Intake/Output Intake/Output: Intake & Output 11/13/24 11/14/24 11/15/24 11/16/24 23:59 23:59 23:59 23:59 Intake Total 480 960 270 630 Output Total 150 Balance 330 960 270 630 Meds/Results Medications: Active Medications Generic Name Dose Route Start Last Admin Trade Name Freq PRN Reason Stop Dose Admin Acetaminophen 500 mg 11/11/24 10:56 Acetaminophen 500 Mg Tablet PO Q6H PRN Pain Rated 1-5 Atorvastatin Calcium 20 mg 11/10/24 18:00 11/15/24 18:09 Atorvastatin 20 Mg Tablet PO 20 mg QPM SALMA Administration Cholestyramine Resin 4 gm 11/15/24 10:00 11/16/24 09:44 Cholestyramine (W/ Sugar) 4 Gm Powd.Pack PO 4 gm DAILY@1000 SALMA Administration Donepezil HCl 10 mg 11/11/24 09:00 11/16/24 09:40 Donepezil Hcl 5 Mg Tablet PO 10 mg DAILY SALMA Administration Enoxaparin Sodium 30 mg 11/08/24 09:00 11/16/24 09:46 Enoxaparin 30 Mg/0.3 Ml Syringe SUB-Q 30 mg DAILY SALMA Administration Guaifenesin 600 mg 11/15/24 21:00 11/16/24 09:40 Guaifenesin 12 Hr 600 Mg Tabcr PO 600 mg Q12HR SALMA Administration Levothyroxine Sodium 150 mcg 11/11/24 06:30 11/16/24 05:45 Levothyroxine Sodium 150 Mcg Tablet PO 150 mcg DAILY@0630 SALMA Administration Loperamide HCl 2 mg 11/12/24 11:36 11/13/24 20:25 Loperamide Hcl 2 Mg Capsule PO 2 mg PRN PRN Administration Diarrhea Losartan Potassium 50 mg 11/10/24 21:00 11/15/24 20:30 Losartan Potassium 50 Mg Tablet PO 50 mg QHS SALMA Administration Melatonin 10 mg 11/10/24 14:41 11/15/24 20:31 Melatonin 5 Mg Tablet PO 10 mg HS PRN Administration Insomnia Naloxone HCl 0.1 mg 11/07/24 17:59 Naloxone Hcl 0.4 Mg/Ml Vial IV PUSH Q2M PRN Opiate Reversal Ondansetron HCl 4 mg 11/13/24 10:51 11/13/24 14:37 Ondansetron Inj 4 Mg/2 Ml Vial IV PUSH 4 mg Q4H PRN Administration Nausea And Vomiting Pantoprazole Sodium 40 mg 11/10/24 21:00 11/16/24 09:40 Pantoprazole 40 Mg Tablet PO 40 mg Q12HR SALMA Administration Tramadol HCl 50 mg 11/11/24 10:56 11/16/24 05:45 Tramadol Hcl (*Crx) 50 Mg Tablet PO 50 mg Q4H PRN Administration Pain Rated 6 or Greater Radiology Results: ITS Impressions Chest X-Ray 11/07/24 05:18 Impression: Possible 15 mm right apical pulmonary nodule versus confluence of shadows. Chest CT recommended to confirm or exclude pulmonary nodule. Abdomen X-Ray 11/07/24 05:24 Impression: NG tube in satisfactory position. Small bowel obstruction. High Resolution CT 11/11/24 06:01 Impression: Moderate right pleural effusion and small left pleural effusion. Extensive presumed right lower lobe atelectasis versus possibly pneumonia. Partial left lower lobe atelectasis. Mild emphysema in the upper lobes. 4.8 x 4.0 cm heterogeneous left adrenal mass, similar to recent prior abdominal pelvic CT. Neoplastic/metastatic lesion is a consideration, versus acute adrenal hemorrhage/hematoma. Extensive wall thickening of the stomach and proximal duodenum. Correlate for infectious/inflammatory gastritis/duodenitis. Modified Barium Swallow 11/11/24 16:07 IMPRESSION: 1. Normal modified barium swallow. 2. Please refer to the speech therapy report for recommendations. Pelvis Ultrasound 11/11/24 16:08 IMPRESSION: 1. Uterus and ovaries not visualized on transabdominal imaging. The patient is confused and would not tolerate transvaginal imaging. Abdomen/Pelvis CT 11/13/24 16:19 IMPRESSION: Mural thickening and edema within the efferent limb of the distal small bowel, just proximal to the anastomosis. Limited evaluation of the integrity of the anastomosis, secondary to patient's recent perioperative state. Significant distention and surrounding venous congestion within the distal branches of the ileocolic vein/right colic vein, possibly perioperative in origin. No central filling defect is appreciated. Bilateral pleural effusions with adjacent compressive atelectasis. Indeterminate focus within the left kidney. Splenic cyst. Large left adrenal mass. Quality VTE Prophylaxis VTE prophylaxis: pharmacologic ordered Hospitalist [facility] Advance Care Plan I have confirmed that the patient's Advanced Care Plan is present, code status is documented, or surrogate decision maker is listed in patient medical record.: Yes Medication Reconciliation I have utilized all available resources to obtain, update and review the patients current medications (includes all prescriptions, OTC, herbals, cannabis, and nutritional supplements).: Yes
[2024-11-16 14:00] VITALS: BP 111/70; PULSE 75; RESP 18; TEMP 36.4; O2SAT 95
[2024-11-16] MEDS: LOPERAMIDE HCL 2 MG CAPSULE PO (15:37)
[2024-11-16] MEDS: ATORVASTATIN 20 MG TABLET PO (17:22)
[2024-11-16] MEDS: LOSARTAN POTASSIUM 50 MG TABLET PO (21:08)
[2024-11-16 21:20] VITALS: BP 137/66; PULSE 62; RESP 18; TEMP 36.3; O2SAT 92
[2024-11-17] MEDS: LEVOTHYROXINE SODIUM 150 MCG TABLET PO (05:01)
[2024-11-17 05:30] VITALS: BP 134/66; PULSE 51; RESP 18; TEMP 35.9; O2SAT 94
[2024-11-17] MEDS: ONDANSETRON INJ 4 MG/2 ML VIAL IV PUSH (06:17)
[2024-11-17 07:04] LABS: Hematocrit 32.3 % (37.0-47.0); Hemoglobin 10.8 g/dL (12.0-15.0); Mean Corpuscular HGB Conc 33.4 g/dl (32-36); Mean Corpuscular Hemoglobin 29.4 pg (26-34); Mean Platelet Volume 11.6 fl (7.4-10.4); Platelet Count Result 334 k/mm3 (150-375); Red Blood Count 3.67 M/mm3 (4.2-5.4); Red Cell Distribution Width 17.5 % (11.5-14.5); White Blood Count 12.1 K/mm3 (4.5-10.0)
[2024-11-17 07:29] LABS: Anion Gap 1 mmol/L (4-12); Blood Urea Nitrogen 11 mg/dL (7-17); Calcium 7.4 mg/dL (8.4-10.2); Carbon Dioxide 27 mmol/L (22-30); Chloride 109 mmol/L (98-107); Estimated CRCL calculation 26 ml/min; Estimated Glomerular Filt Rate 48; Glucose 74 mg/dL (65-110); Sodium 137 mmol/L (137-145)
[2024-11-17] MEDS: PANTOPRAZOLE 40 MG TABLET PO ×2 (10:26→20:44)
[2024-11-17] MEDS: guaiFENesin 12 HR 600 MG TABCR PO ×2 (10:26→20:44)
[2024-11-17] MEDS: DONEPEZIL HCL 5 MG TABLET 10 MG PO (10:27)
[2024-11-17] MEDS: CHOLESTYRAMINE (W/ SUGAR) 4 GM POWD.PACK PO (10:27)
[2024-11-17] MEDS: ENOXAPARIN 30 MG/0.3 ML SYRINGE SUB-Q (10:29)
--- NOTE | 2024-11-17 11:04 | PCSTNOTE ---
Please refer to the Bedside Swallow Evaluation in the EMR. Please note, silent aspiration cannot be ruled out at bedside. Pt was seen for a repeat bedside swallow evaluation due to not liking the level 5 minced and moist diet; pt was seen for a MBS on 11-11-24 at which she refused the solid cracker trial hence being put on the minced and moist. Pt tolerated all other trials during MBS without aspiration or residual. She is now complaining about level 5 diet. At this time pt was tested with pudding, cracker and water. She initially refused the solid/cracker but agreed after it was explained that tolerating the cracker trial would allow for diet advancement. Pt has no upper dentition and many missing lower teeth but reports being able to masticate solids. With all trials tested on this date, no oral or overt pharyngeal difficulty was noted. Impression: functional swallow ability despite poor dentition. Recommendation: advance diet to regular with regular liquids
--- NOTE | 2024-11-17 11:16 | PM.IMPN ---
Progress Note: A&P Assessment and Plan (1) SBO (small bowel obstruction): Code(s): K56.609 - Unspecified intestinal obstruction, unspecified as to partial versus complete obstruction Status: Acute Assessment and Plan: Patient presented with abdominal pain and found to have SBO from incarcerated umbilical hernia. CT Abd showing diffuse small bowel dilation, transition point at the entrance of an umbilical hernia which contains a loop of nondilated distal ileum. No large bowel dilation. Normal appendix. Diverticulosis without diverticulitis. NGT placed. Repeat imaging showing SBO. General surgery consulted and appreciate their input. Patient underwent repair 4 cm umbilical hernia, small bowel resection with anastomosis and appendectomy on 11/07/24 Tolerated procedure well. Bowel fxn better. ADAT, now on low-fiber diet and tolerating well. Continue pain control. She was coughing with liquid so ST evaluation performed. Speech therapy evaluation was incomplete but they felt patient could safely proceed with minced and moist diet. Did well with thin liquids and does not need thickener. Repeat bedside swallow eval per ST normal and pt placed on regular diet with thin liquids. General surgery cleared pt for discharge and awaiting placement. (2) Incarcerated umbilical hernia: Code(s): K42.0 - Umbilical hernia with obstruction, without gangrene Status: Acute Assessment and Plan: Mgt as above. (3) [id number] kidney injury: Code(s): N17.9 - Acute kidney failure, unspecified; N18.9 - Chronic kidney disease, unspecified Status: Acute Assessment and Plan: BUN 70 and Cr 2.2 on admission. Baseline Cr 1.3-1.6 over the past year. Cr slightly trended up possibly due to poor PO intake but still within pt's baseline; 0.82>>1.02 CT scan with conrast showing no hydronephrosis or obstructing calcification; 1.6 cm indeterminate density left upper pole lesion (measured 1.5cm in January 2023); multiple bilateral subcentimeter renal hypodensities, too small to characterize; mild bladder wall edema possibly cystitis. UA consistent with possible UTI. Suspect dehydration and/or ATN and/or from infection causing the JC Continue to monitor renal panel closely off IVF. (4) Abnormal CT of the abdomen: Code(s): R93.5 - Abnormal findings on diagnostic imaging of other abdominal regions, including retroperitoneum Status: Acute Assessment and Plan: CXR showing possibly 15mm right apical pulm nodule. CT abd/pelvis showing RML and RLL bronchiectasis and bronchial wall thickening. Ground glass and centrilobular nodular opacities adjacent to the area of bronchiectasis in the right lower lobe. Influenza, RSV and COVID PCR negative. Also with left adrenal mass at 5.1cm that has grown since January 2023 Also noted with fluid distended endometrial cavity with irregular intraluminal hyperdensity and gas, may represent endometrial hemorrhage, infectious material, or less likely a polyp. Pelvic US incomplete. CT chest does not show bronchiectasis or an apical pulmonary nodule. left adrenal mass again noted and will need to be followed. Cortisol high but could be from recent surgery. Also on narcotics that can suppress cortisol release. Renin/issac still pending. Will need repeat cortisol level after discharge. Repeat pelvic US: Uterus and ovaries not visualized on transabdominal imaging. The patient is confused and would not tolerate transvaginal imaging. Conservative mgt for now. (5) UTI (urinary tract infection): Qualifiers: Hematuria presence: with hematuria Urinary tract infection type: acute cystitis Qualified Code(s): N30.01 - Acute cystitis with hematuria Code(s): N39.0 - Urinary tract infection, site not specified Status: Acute Assessment and Plan: UA is consistent with UTI. UCx collected. Rocephin started. Prior UTIs august-sensitive. UCx growing Proteus sensitive to Rocephin and Levaquin. abx therapy completed. (6) HTN (hypertension): Qualifiers: Hypertension type: essential hypertension Qualified Code(s): I10 - Essential (primary) hypertension Code(s): I10 - Essential (primary) hypertension Status: Acute Assessment and Plan: Patient's blood pressure reviewed. Blood pressure remains well controlled. Continue to follow. Plan Hypothyroidism - continue Synthroid DVT prophylaxis - lovenox Code status - DNR Disp - SNF Time Spent With Patient Time with patient: 15 - 25 minutes Subjective Date/time seen: 11/17/24 11:16 Patient states she's doing well but still sore on her abdominal incision region. States wants to have a regular diet as she doesn't like the moist diet, and she's doing well with thin liquids. Interval history: Patient presented with abdominal pain and found to have SBO from incarcerated umbilical hernia. Patient underwent repair 4 cm umbilical hernia, small bowel resection with anastomosis and appendectomy on 11/07/24 Bowel fxn stable. Now on low-fiber diet, minced and moist with thin liquids and tolerating well. General surgery cleared pt for discharge and awaiting placement. Review of Systems Review of Systems: All systems reviewed & are unremarkable except as noted in HPI and below Exam Narrative: General: Well appearing, generalized muscle weakness. HEENT: Atraumatic, PERRL, EOM, moist mucosa. NECK: Supple. Lungs: Crackles to bases with some congestion. Heart: RRR, no murmurs. Abdomen: Soft, non-tender, non-distended, +BS X4 Quads, daphne removed and ster-strips intact to mid-abdomen incision. J-P drain removed and incision with no bleeding signs. Neuro: Fairly well oriented with some confusion episodes. No focal neuro deficits noted. Psych: Pleasant and co-operative. Objective Data Vital Signs Vital Signs: Vital Signs - 24 hr 11/16/24 14:00 11/16/24 20:00 11/16/24 21:20 Temperature 97.5 F L 97.3 F L Pulse Rate 75 62 Respiratory Rate 18 18 Blood Pressure 111/70 137/66 Pulse Oximetry 95 92 Oxygen Delivery Room Air 11/17/24 05:30 Temperature 96.6 F L Pulse Rate 51 L Respiratory Rate 18 Blood Pressure 134/66 Pulse Oximetry 94 Oxygen Delivery Intake/Output Intake/Output: Intake & Output 11/14/24 11/15/24 11/16/24 11/17/24 23:59 23:59 23:59 23:59 Intake Total 960 270 870 240 Balance 960 270 870 240 Meds/Results Medications: Active Medications Generic Name Dose Route Start Last Admin Trade Name Freq PRN Reason Stop Dose Admin Acetaminophen 500 mg 11/11/24 10:56 Acetaminophen 500 Mg Tablet PO Q6H PRN Pain Rated 1-5 Atorvastatin Calcium 20 mg 11/10/24 18:00 11/16/24 17:22 Atorvastatin 20 Mg Tablet PO 20 mg QPM SALMA Administration Cholestyramine Resin 4 gm 11/15/24 10:00 11/17/24 10:27 Cholestyramine (W/ Sugar) 4 Gm Powd.Pack PO 4 gm DAILY@1000 SALMA Administration Donepezil HCl 10 mg 11/11/24 09:00 11/17/24 10:27 Donepezil Hcl 5 Mg Tablet PO 10 mg DAILY SALMA Administration Enoxaparin Sodium 30 mg 11/08/24 09:00 11/17/24 10:29 Enoxaparin 30 Mg/0.3 Ml Syringe SUB-Q 30 mg DAILY SALMA Administration Guaifenesin 600 mg 11/15/24 21:00 11/17/24 10:26 Guaifenesin 12 Hr 600 Mg Tabcr PO 600 mg Q12HR SALMA Administration Levothyroxine Sodium 150 mcg 11/11/24 06:30 11/17/24 05:01 Levothyroxine Sodium 150 Mcg Tablet PO 150 mcg DAILY@0630 [facility] Administration Loperamide HCl 2 mg 11/12/24 11:36 11/16/24 15:37 Loperamide Hcl 2 Mg Capsule PO 2 mg PRN PRN Administration Diarrhea Losartan Potassium 50 mg 11/10/24 21:00 11/16/24 21:08 Losartan Potassium 50 Mg Tablet PO 50 mg QHS [facility] Administration Melatonin 10 mg 11/10/24 14:41 11/15/24 20:31 Melatonin 5 Mg Tablet PO 10 mg HS PRN Administration Insomnia Naloxone HCl 0.1 mg 11/07/24 17:59 Naloxone Hcl 0.4 Mg/Ml Vial IV PUSH Q2M PRN Opiate Reversal Ondansetron HCl 4 mg 11/13/24 10:51 11/17/24 06:17 Ondansetron Inj 4 Mg/2 Ml Vial IV PUSH 4 mg Q4H PRN Administration Nausea And Vomiting Pantoprazole Sodium 40 mg 11/10/24 21:00 11/17/24 10:26 Pantoprazole 40 Mg Tablet PO 40 mg Q12HR SALMA Administration Tramadol HCl 50 mg 11/11/24 10:56 11/16/24 21:08 Tramadol Hcl (*Crx) 50 Mg Tablet PO 50 mg Q4H PRN Administration Pain Rated 6 or Greater Radiology Results: ITS Impressions Chest X-Ray 11/07/24 05:18 Impression: Possible 15 mm right apical pulmonary nodule versus confluence of shadows. Chest CT recommended to confirm or exclude pulmonary nodule. Abdomen X-Ray 11/07/24 05:24 Impression: NG tube in satisfactory position. Small bowel obstruction. High Resolution CT 11/11/24 06:01 Impression: Moderate right pleural effusion and small left pleural effusion. Extensive presumed right lower lobe atelectasis versus possibly pneumonia. Partial left lower lobe atelectasis. Mild emphysema in the upper lobes. 4.8 x 4.0 cm heterogeneous left adrenal mass, similar to recent prior abdominal pelvic CT. Neoplastic/metastatic lesion is a consideration, versus acute adrenal hemorrhage/hematoma. Extensive wall thickening of the stomach and proximal duodenum. Correlate for infectious/inflammatory gastritis/duodenitis. Modified Barium Swallow 11/11/24 16:07 IMPRESSION: 1. Normal modified barium swallow. 2. Please refer to the speech therapy report for recommendations. Pelvis Ultrasound 11/11/24 16:08 IMPRESSION: 1. Uterus and ovaries not visualized on transabdominal imaging. The patient is confused and would not tolerate transvaginal imaging. Abdomen/Pelvis CT 11/13/24 16:19 IMPRESSION: Mural thickening and edema within the efferent limb of the distal small bowel, just proximal to the anastomosis. Limited evaluation of the integrity of the anastomosis, secondary to patient's recent perioperative state. Significant distention and surrounding venous congestion within the distal branches of the ileocolic vein/right colic vein, possibly perioperative in origin. No central filling defect is appreciated. Bilateral pleural effusions with adjacent compressive atelectasis. Indeterminate focus within the left kidney. Splenic cyst. Large left adrenal mass. Labs Labs: Laboratory Results - last 24 hr 11/12/24 11/17/24 06:49 06:45 WBC 12.1 H RBC 3.67 L Hgb 10.8 L Hct 32.3 L MCV 88.0 MCH 29.4 MCHC 33.4 RDW 17.5 H Plt Count 334 MPV 11.6 H Sodium 137 Potassium 4.0 Chloride 109 H Carbon Dioxide 27 Anion Gap 1 L BUN 11 D Creatinine 1.08 H Estim Creat Clear Calc 26 Estimated GFR 48 L Glucose 74 Calcium 7.4 L Aldosterone <1 Quality VTE Prophylaxis VTE prophylaxis: pharmacologic ordered Hospitalist MIPS Advance Care Plan I have confirmed that the patient's Advanced Care Plan is present, code status is documented, or surrogate decision maker is listed in patient medical record.: Yes Medication Reconciliation I have utilized all available resources to obtain, update and review the patients current medications (includes all prescriptions, OTC, herbals, cannabis, and nutritional supplements).: Yes
[2024-11-17 14:00] VITALS: BP 122/56; PULSE 64; RESP 18; TEMP 36.2; O2SAT 97
[2024-11-17] MEDS: LOPERAMIDE HCL 2 MG CAPSULE PO (16:48)
[2024-11-17] MEDS: ATORVASTATIN 20 MG TABLET PO (16:50)
[2024-11-17] MEDS: LOSARTAN POTASSIUM 50 MG TABLET PO (20:44)
[2024-11-17 21:35] VITALS: BP 151/73; PULSE 60; RESP 18; TEMP 36.6; O2SAT 91
[2024-11-18 04:40] VITALS: BP 165/81; PULSE 57; RESP 20; TEMP 37.4; O2SAT 96
[2024-11-18] MEDS: LEVOTHYROXINE SODIUM 150 MCG TABLET PO (05:54)
[2024-11-18 07:39] LABS: Anion Gap 4 mmol/L (4-12); Blood Urea Nitrogen 12 mg/dL (7-17); Carbon Dioxide 22 mmol/L (22-30); Chloride 109 mmol/L (98-107); Estimated CRCL calculation 29 ml/min; Estimated Glomerular Filt Rate 56; Glucose 66 mg/dL (65-110); Potassium 4.1 mmol/L (3.4-5.0); Sodium 135 mmol/L (137-145)
[2024-11-18] MEDS: traMADol HCL (*CRX) 50 MG TABLET PO (09:33)
[2024-11-18] MEDS: guaiFENesin 12 HR 600 MG TABCR PO ×2 (09:34→21:13)
[2024-11-18] MEDS: DONEPEZIL HCL 5 MG TABLET 10 MG PO (09:34)
[2024-11-18] MEDS: PANTOPRAZOLE 40 MG TABLET PO ×2 (09:34→21:16)
[2024-11-18] MEDS: ENOXAPARIN 30 MG/0.3 ML SYRINGE SUB-Q (09:35)
[2024-11-18 14:00] VITALS: BP 138/62; PULSE 68; RESP 16; TEMP 35.9; O2SAT 97
--- NOTE | 2024-11-18 16:20 | P.PNIM_ITS ---
Progress Note: A&P Assessment and Plan (1) SBO (small bowel obstruction): Code(s): K56.609 - Unspecified intestinal obstruction, unspecified as to partial versus complete obstruction Status: Acute Assessment and Plan: Patient presented with abdominal pain and found to have SBO from incarcerated umbilical hernia. CT Abd showing diffuse small bowel dilation, transition point at the entrance of an umbilical hernia which contains a loop of nondilated distal ileum. No large bowel dilation. Normal appendix. Diverticulosis without diverticulitis. NGT placed. Repeat imaging showing SBO. General surgery consulted and appreciate their input. Patient underwent repair 4 cm umbilical hernia, small bowel resection with anastomosis and appendectomy on 11/07/24 Tolerated procedure well. Bowel fxn better. ADAT, now on low-fiber diet and tolerating well. Continue pain control. She was coughing with liquid so ST evaluation performed. Speech therapy evaluation was incomplete but they felt patient could safely proceed with minced and moist diet. Did well with thin liquids and does not need thickener. Repeat bedside swallow eval 11/17/ per ST normal and pt placed on regular diet with thin liquids. General surgery cleared pt for discharge and awaiting placement. (2) Incarcerated umbilical hernia: Code(s): K42.0 - Umbilical hernia with obstruction, without gangrene Status: Acute Assessment and Plan: Mgt as above. (3) Umite-ov-veaqcjo kidney injury: Code(s): N17.9 - Acute kidney failure, unspecified; N18.9 - Chronic kidney disease, unspecified Status: Acute Assessment and Plan: BUN 70 and Cr 2.2 on admission. Baseline Cr 1.3-1.6 over the past year. Cr slightly trended up possibly due to poor PO intake but still within pt's baseline; 0.82>>1.02 CT scan with conrast showing no hydronephrosis or obstructing calcification; 1.6 cm indeterminate density left upper pole lesion (measured 1.5cm in January 2023); multiple bilateral subcentimeter renal hypodensities, too small to characterize; mild bladder wall edema possibly cystitis. UA consistent with possible UTI. Suspect dehydration and/or ATN and/or from infection causing the JC. Improving and Cr currently trending wnl. Continue to monitor renal panel closely off IVF. (4) Abnormal CT of the abdomen: Code(s): R93.5 - Abnormal findings on diagnostic imaging of other abdominal regions, including retroperitoneum Status: Acute Assessment and Plan: CXR showing possibly 15mm right apical pulm nodule. CT abd/pelvis showing RML and RLL bronchiectasis and bronchial wall thickening. Ground glass and centrilobular nodular opacities adjacent to the area of bronchiectasis in the right lower lobe. Influenza, RSV and COVID PCR negative. Also with left adrenal mass at 5.1cm that has grown since January 2023 Also noted with fluid distended endometrial cavity with irregular intraluminal hyperdensity and gas, may represent endometrial hemorrhage, infectious material, or less likely a polyp. Pelvic US incomplete. CT chest does not show bronchiectasis or an apical pulmonary nodule. left adrenal mass again noted and will need to be followed. Cortisol high but could be from recent surgery. Also on narcotics that can suppress cortisol release. Renin/issac still pending. Will need repeat cortisol level after discharge. Repeat pelvic US: Uterus and ovaries not visualized on transabdominal imaging. The patient is confused and would not tolerate transvaginal imaging. Conservative mgt for now. (5) UTI (urinary tract infection): Qualifiers: Hematuria presence: with hematuria Urinary tract infection type: acute cystitis Qualified Code(s): N30.01 - Acute cystitis with hematuria Code(s): N39.0 - Urinary tract infection, site not specified Status: Acute Assessment and Plan: UA is consistent with UTI. UCx collected. Rocephin started. Prior UTIs august-sensitive. UCx growing Proteus sensitive to Rocephin and Levaquin. abx therapy completed. (6) HTN (hypertension): Qualifiers: Hypertension type: essential hypertension Qualified Code(s): I10 - Essential (primary) hypertension Code(s): I10 - Essential (primary) hypertension Status: Acute Assessment and Plan: Patient's blood pressure reviewed. Blood pressure remains well controlled. Continue to follow. Plan Hypothyroidism - continue Synthroid DVT prophylaxis - lovenox Code status - DNR Disp - SNF Time Spent With Patient Time with patient: 15 - 25 minutes Subjective Date/time seen: 11/18/24 10:20 Patient states she feels alright but still has soreness to her abdominal incision region. Interval history: Patient presented with abdominal pain and found to have SBO from incarcerated umbilical hernia. Patient underwent repair 4 cm umbilical hernia, small bowel resection with anastomosis and appendectomy on 11/07/24 Bowel fxn stable. Now on low-fiber diet and tolerating well. General surgery cleared pt for discharge and awaiting placement. Review of Systems Review of Systems: All systems reviewed & are unremarkable except as noted in HPI and below Exam Narrative: General: Well appearing, generalized muscle weakness. HEENT: Atraumatic, PERRL, EOM, moist mucosa. NECK: Supple. Lungs: Diminished with some congestion. Heart: RRR, no murmurs. Abdomen: Soft, non-tender, non-distended, +BS X4 Quads, steri-strips intact to mid-abdomen incision. J-P drain removed and incision with no bleeding signs. Neuro: Fairly well oriented with some confusion episodes. No focal neuro deficits noted. Psych: Pleasant and co-operative. Objective Data Vital Signs Vital Signs: Vital Signs - 24 hr 11/17/24 21:35 11/18/24 04:40 11/18/24 08:00 Temperature 98 F 99.3 F Pulse Rate 60 57 L Respiratory Rate 18 20 Blood Pressure 151/73 H 165/81 H Pulse Oximetry 91 96 Oxygen Delivery Room Air 11/18/24 14:00 Temperature 96.6 F L Pulse Rate 68 Respiratory Rate 16 Blood Pressure 138/62 Pulse Oximetry 97 Oxygen Delivery Intake/Output Intake/Output: Intake & Output 11/15/24 11/16/24 11/17/24 11/18/24 23:59 23:59 23:59 23:59 Intake Total 270 870 480 497 Balance 270 870 480 497 Meds/Results Medications: Active Medications Generic Name Dose Route Start Last Admin Trade Name Freq PRN Reason Stop Dose Admin Acetaminophen 500 mg 11/11/24 10:56 Acetaminophen 500 Mg Tablet PO Q6H PRN Pain Rated 1-5 Atorvastatin Calcium 20 mg 11/10/24 18:00 11/17/24 16:50 Atorvastatin 20 Mg Tablet PO 20 mg QPM [facility] Administration Cholestyramine Resin 4 gm 11/15/24 10:00 11/18/24 09:35 Cholestyramine (W/ Sugar) 4 Gm Powd.Pack PO Not Given DAILY@1000 [facility] Donepezil HCl 10 mg 11/11/24 09:00 11/18/24 09:34 Donepezil Hcl 5 Mg Tablet PO 10 mg DAILY [facility] Administration Enoxaparin Sodium 30 mg 11/08/24 09:00 11/18/24 09:35 Enoxaparin 30 Mg/0.3 Ml Syringe SUB-Q 30 mg DAILY [facility] Administration Guaifenesin 600 mg 11/15/24 21:00 11/18/24 09:34 Guaifenesin 12 Hr 600 Mg Tabcr PO 600 mg Q12HR [facility] Administration Levothyroxine Sodium 150 mcg 11/11/24 06:30 11/18/24 05:54 Levothyroxine Sodium 150 Mcg Tablet PO 150 mcg DAILY@0630 [facility] Administration Loperamide HCl 2 mg 11/12/24 11:36 11/17/24 16:48 Loperamide Hcl 2 Mg Capsule PO 2 mg PRN PRN Administration Diarrhea Losartan Potassium 50 mg 11/10/24 21:00 11/17/24 20:44 Losartan Potassium 50 Mg Tablet PO 50 mg QHS [facility] Administration Melatonin 10 mg 11/10/24 14:41 11/15/24 20:31 Melatonin 5 Mg Tablet PO 10 mg HS PRN Administration Insomnia Naloxone HCl 0.1 mg 11/07/24 17:59 Naloxone Hcl 0.4 Mg/Ml Vial IV PUSH Q2M PRN Opiate Reversal Ondansetron HCl 4 mg 11/13/24 10:51 11/17/24 06:17 Ondansetron Inj 4 Mg/2 Ml Vial IV PUSH 4 mg Q4H PRN Administration Nausea And Vomiting Pantoprazole Sodium 40 mg 11/10/24 21:00 11/18/24 09:34 Pantoprazole 40 Mg Tablet PO 40 mg Q12HR [facility]MA Administration Tramadol HCl 50 mg 11/11/24 10:56 11/18/24 09:33 Tramadol Hcl (*Crx) 50 Mg Tablet PO 50 mg Q4H PRN Administration Pain Rated 6 or Greater Radiology Results: ITS Impressions Chest X-Ray 11/07/24 05:18 Impression: Possible 15 mm right apical pulmonary nodule versus confluence of shadows. Chest CT recommended to confirm or exclude pulmonary nodule. Abdomen X-Ray 11/07/24 05:24 Impression: NG tube in satisfactory position. Small bowel obstruction. High Resolution CT 11/11/24 06:01 Impression: Moderate right pleural effusion and small left pleural effusion. Extensive presumed right lower lobe atelectasis versus possibly pneumonia. Partial left lower lobe atelectasis. Mild emphysema in the upper lobes. 4.8 x 4.0 cm heterogeneous left adrenal mass, similar to recent prior abdominal pelvic CT. Neoplastic/metastatic lesion is a consideration, versus acute adrenal hemorrhage/hematoma. Extensive wall thickening of the stomach and proximal duodenum. Correlate for infectious/inflammatory gastritis/duodenitis. Modified Barium Swallow 11/11/24 16:07 IMPRESSION: 1. Normal modified barium swallow. 2. Please refer to the speech therapy report for recommendations. Pelvis Ultrasound 11/11/24 16:08 IMPRESSION: 1. Uterus and ovaries not visualized on transabdominal imaging. The patient is confused and would not tolerate transvaginal imaging. Abdomen/Pelvis CT 11/13/24 16:19 IMPRESSION: Mural thickening and edema within the efferent limb of the distal small bowel, just proximal to the anastomosis. Limited evaluation of the integrity of the anastomosis, secondary to patient's recent perioperative state. Significant distention and surrounding venous congestion within the distal branches of the ileocolic vein/right colic vein, possibly perioperative in origin. No central filling defect is appreciated. Bilateral pleural effusions with adjacent compressive atelectasis. Indeterminate focus within the left kidney. Splenic cyst. Large left adrenal mass. Labs Labs: Laboratory Results - last 24 hr 11/11/24 11/18/24 06:16 06:37 Sodium 135 L Potassium 4.1 Chloride 109 H Carbon Dioxide 22 Anion Gap 4 BUN 12 Creatinine 0.95 Estim Creat Clear Calc 29 Estimated GFR 56 L Glucose 66 Calcium 7.0 L A. flavus Allergen IgE Negative A.fumigatus Allerg IgG Negative A. niger Allergen IgE Negative Quality VTE Prophylaxis VTE prophylaxis: pharmacologic ordered Hospitalist [facility] Advance Care Plan I have confirmed that the patient's Advanced Care Plan is present, code status is documented, or surrogate decision maker is listed in patient medical record.: Yes Medication Reconciliation I have utilized all available resources to obtain, update and review the patients current medications (includes all prescriptions, OTC, herbals, cannabis, and nutritional supplements).: Yes
[2024-11-18] MEDS: ATORVASTATIN 20 MG TABLET PO (17:01)
[2024-11-18] MEDS: MELATONIN 5 MG TABLET 10 MG PO (21:12)
[2024-11-18] MEDS: ACETAMINOPHEN 500 MG TABLET PO (21:13)
[2024-11-18] MEDS: LOSARTAN POTASSIUM 50 MG TABLET PO (21:16)
[2024-11-18 21:25] VITALS: BP 141/62; PULSE 65; RESP 16; TEMP 36.9; O2SAT 96
--- NOTE | 2024-11-19 04:17 | PC.NURSE ---
patient refusing to keep bedside table close to her. staff moved table to where patient can reach all belongings, which upset patient, who moved table away even further. patient has been refusing to drink water overnight, therefore states she does not need her tray by her.
[2024-11-19] MEDS: LEVOTHYROXINE SODIUM 150 MCG TABLET PO (05:27)
[2024-11-19 05:50] VITALS: BP 151/69; PULSE 55; RESP 16; TEMP 37.1; O2SAT 93
[2024-11-19 07:05] LABS: Basophils Percent Auto 0.3 % (0.2-1.2); Eosinophils Absolute Auto 0.1 K/mm3 (0-0.3); Hemoglobin 10.9 g/dL (12.0-15.0); Immature Granulocyte Absolute 0.07 K/mm3 (0.00-0.031); Immature Granulocyte Percent A 0.6 % (0-0.5); Lymphocytes Absolute Auto 2.35 K/mm3 (0.9-3.2); Lymphocytes Percent Auto 19.9 % (18.3-44.2); Mean Corpuscular Volume 87.8 fl (80-100); Mean Platelet Volume 11.6 fl (7.4-10.4); Monocytes Absolute Auto 0.5 K/mm3 (0.1-0.6); Neutrophils Absolute Auto 8.8 K/mm3 (1.3-6.7); Neutrophils Percent Auto 74.2 % (45.5-73.1); Platelet Count Result 365 k/mm3 (150-375); Red Blood Count 3.76 M/mm3 (4.2-5.4); Red Cell Distribution Width 17.3 % (11.5-14.5); White Blood Count 11.8 K/mm3 (4.5-10.0)
[2024-11-19] MEDS: PANTOPRAZOLE 40 MG TABLET PO (09:32)
[2024-11-19] MEDS: ENOXAPARIN 30 MG/0.3 ML SYRINGE SUB-Q (09:32)
[2024-11-19] MEDS: guaiFENesin 12 HR 600 MG TABCR PO (09:32)
[2024-11-19] MEDS: DONEPEZIL HCL 5 MG TABLET 10 MG PO (09:32)
--- NOTE | 2024-11-19 12:01 | PM.DS ---
DS: Admitting Diagnosis Discharge Date 11/19/24 Admitting Diagnosis Abdominal Pain DS: Discharge Diagnosis Discharge Diagnosis (1) SBO (small bowel obstruction): Code(s): K56.609 - Unspecified intestinal obstruction, unspecified as to partial versus complete obstruction Status: Acute Assessment and Plan: Acute. (2) Incarcerated umbilical hernia: Code(s): K42.0 - Umbilical hernia with obstruction, without gangrene Status: Acute Assessment and Plan: Acute. (3) Vaeir-ri-eojjzco kidney injury: Code(s): N17.9 - Acute kidney failure, unspecified; N18.9 - Chronic kidney disease, unspecified Status: Acute Assessment and Plan: BUN 70 and Cr 2.2 on admission. Baseline Cr 1.3-1.6 over the past year. Cr slightly trended up possibly due to poor PO intake but still within pt's baseline; 0.82>>1.02 CT scan with conrast showing no hydronephrosis or obstructing calcification; 1.6 cm indeterminate density left upper pole lesion (measured 1.5cm in January 2023); multiple bilateral subcentimeter renal hypodensities, too small to characterize; mild bladder wall edema possibly cystitis. UA consistent with possible UTI. Suspect dehydration and/or ATN and/or from infection causing the JC. Improving and Cr currently trending wnl. Continue to monitor renal panel closely off IVF. (4) Abnormal CT of the abdomen: Code(s): R93.5 - Abnormal findings on diagnostic imaging of other abdominal regions, including retroperitoneum Status: Acute Assessment and Plan: Acute. (5) UTI (urinary tract infection): Qualifiers: Hematuria presence: with hematuria Urinary tract infection type: acute cystitis Qualified Code(s): N30.01 - Acute cystitis with hematuria Code(s): N39.0 - Urinary tract infection, site not specified Status: Acute Assessment and Plan: Acute. (6) HTN (hypertension): Qualifiers: Hypertension type: essential hypertension Qualified Code(s): I10 - Essential (primary) hypertension Code(s): I10 - Essential (primary) hypertension Status: Acute Assessment and Plan: Chronic. (7) Complete small bowel obstruction: Code(s): K56.601 - Complete intestinal obstruction, unspecified as to cause Status: Acute Plan Hypothyroidism - continue Synthroid Discharge to SNF. DS: Summary Hospital Course Reason for hospitalization: Small Bowel Obstruction. Hospital Course: Patient presented with abdominal pain and found to have SBO from incarcerated umbilical hernia. CT Abd showing diffuse small bowel dilation, transition point at the entrance of an umbilical hernia which contains a loop of nondilated distal ileum. No large bowel dilation. Normal appendix. Diverticulosis without diverticulitis. NGT placed. Repeat imaging showing SBO. General surgery consulted and appreciate their input. Patient underwent repair 4 cm umbilical hernia, small bowel resection with anastomosis and appendectomy on 11/07/24 Tolerated procedure well. Bowel fxn better. ADAT, now on low-fiber diet and tolerating well. Continue pain control. She was coughing with liquid so ST evaluation performed. Speech therapy evaluation was incomplete but they felt patient could safely proceed with minced and moist diet. Did well with thin liquids and does not need thickener. Repeat bedside swallow eval 11/17/ normal and pt placed on regular diet with thin liquids. General surgery cleared pt for discharge and awaiting placement. CXR showing possibly 15mm right apical pulm nodule. CT abd/pelvis showing RML and RLL bronchiectasis and bronchial wall thickening. Ground glass and centrilobular nodular opacities adjacent to the area of bronchiectasis in the right lower lobe. Influenza, RSV and COVID PCR negative. Also with left adrenal mass at 5.1cm that has grown since January 2023 Also noted with fluid distended endometrial cavity with irregular intraluminal hyperdensity and gas, may represent endometrial hemorrhage, infectious material, or less likely a polyp. Pelvic US incomplete. CT chest does not show bronchiectasis or an apical pulmonary nodule. left adrenal mass again noted and will need to be followed. Cortisol high but could be from recent surgery. Also on narcotics that can suppress cortisol release. Renin/issac still pending. Will need repeat cortisol level after discharge. Repeat pelvic US: Uterus and ovaries not visualized on transabdominal imaging. The patient is confused and would not tolerate transvaginal imaging. Conservative mgt for now. UA is consistent with UTI. UCx collected. Rocephin started. Prior UTIs august-sensitive. UCx growing Proteus sensitive to Rocephin and Levaquin. abx therapy completed. Status at Discharge Functional status at discharge: uses cane/walker Overall status at discharge: patient is progressing back to baseline Time Spent with Patient Time attestation: Total time spent providing and/or coordinating discharge services: Time spent: Greater than 30 minutes Exam Narrative: General: Well appearing, generalized muscle weakness. HEENT: Atraumatic, PERRL, EOM, moist mucosa. NECK: Supple. Lungs: Diminished with some congestion. Heart: RRR, no murmurs. Abdomen: Soft, non-tender, non-distended, +BS X4 Quads, steri-strips intact to mid-abdomen incision. Neuro: Fairly well oriented with some confusion episodes. No focal neuro deficits noted. Psych: Pleasant and co-operative. DS: Data Data Completed and Pending Completed studies during hospitalization: Pending at discharge 11/07/24 15:40 Surgical [PTH] Routine Surgical [PTH] Routine Surgical [PTH] Routine Labs on day of discharge: Labs from last 24 hours 11/19/24 06:12 WBC 11.8 H RBC 3.76 L Hgb 10.9 L Hct 33.0 L MCV 87.8 MCH 29.0 MCHC 33.0 RDW 17.3 H Plt Count 365 MPV 11.6 H Immature Gran % (Auto) 0.6 H Neut % (Auto) 74.2 H Lymph % (Auto) 19.9 [place] % (Auto) 4.0 Eos % (Auto) 1.0 Baso % (Auto) 0.3 Lymph # (Auto) 2.35 [place] # (Auto) 0.5 Eos # (Auto) 0.1 Baso # (Auto) 0.0 Abs Immat Gran (auto) 0.07 H Absolute Neuts (auto) 8.8 H Absolute Nucleated RBC 0.000 Nucleated RBC % 0.0 Discharge Plan Discharge Attending physician on discharge: Maurilio Ramos Consulting providers: Zeus Decker Discharging Clinician: Carroll Rushing Anticipated Discharge Date/Time: 11/19/24 12:16 Patient Disposition: SNF Activity: march shower Diet: heart healthy Wound Care Instructions: follow printed instructions and change dressing daily Discharge Instructions: Wound Care Instructions Daily cleanse the wound to the umbilicus with soap and water Then gently pack umbilicus with 1/4 inch Iodoform gauze. Cover umbilicus and packing with a dry gauze dressing. Change dressing Once a Day. Ok to remove dressing and packing if patient wishes to bathe or shower. Replace packing and dressing after. Patient Language: Georgian Stand Alone Forms: General Discharge Information Follow-up/Referrals: Zeus Decker MD [Physician] - 3 Weeks Discharge Medications: New tramadol 50 mg Tablet 50 mg PO Q4H PRN (Reason: Pain Rated 6 Or Greater) Qty: 10 0RF acetaminophen 500 mg Tablet 500 mg PO Q6H PRN (Reason: Pain Rated 1-5) Qty: 20 0RF cholestyramine (with sugar) 4 gram Powder In Packet 1 ea PO DAILY@1000 Qty: 14 0RF loperamide 2 mg Capsule 2 mg PO PRN PRN (Reason: Diarrhea) Qty: 14 0RF guaifenesin [Mucus Relief ER] 600 mg Tablet Extended Release 12hr 600 mg PO Q12HR Qty: 10 0RF Continued meclizine 25 mg tablet 25 mg PO Q8H PRN (Reason: Dizziness) Rx Instructions: TAKE 1 TABLET BY MOUTH THREE TIMES DAILY NEEDED FOR DIZZINESS levothyroxine 150 mcg tablet 150 mcg PO DAILY Rx Instructions: Take 1 tablet by mouth once daily melatonin 10 mg Tablet 10 mg PO HS PRN (Reason: Insomnia) donepezil 5 mg tablet 10 mg PO DAILY losartan 50 mg tablet 50 mg PO QHS atorvastatin 20 mg tablet 20 mg PO QPM pantoprazole 40 mg tablet,delayed release (DR/EC) 40 mg PO BID 30 Days Qty: 180 3RF Date of admission: 11/06/24 23:30 Primary Care Provider: Henry Hinojosa Admitting Provider: Robles Paige Attending physician on admission: Robles Paige Condition: Improved Quality If No VTE Prophylaxis Answer both mechanical and pharmacologic: Reason no mechanical VTE proph: low risk/not indicated Reason no pharmacologic proph: low risk/not indicated Hospitalist MIPS Heart Failure (Exclusion) Patient has history of Heart Transplant or Left Ventricular Assistive Device?: No IF YES, STOP HERE Heart Failure (Qualifier) Patient has current or prior documentation of LVEF less than or equal to 40%, or mod/servere depressed LVSF?: No IF NO, STOP HERE
[2024-11-19 14:00] VITALS: BP 139/69; PULSE 65; RESP 20; TEMP 36.6; O2SAT 100
[2024-11-19 14:45] LABS: SARS-CoV-2 RNA PCR Negative (Negative)
[2024-11-22 19:18] LABS: PRA 1.66 ng/mL/h (0.25-5.82)
== END 2024-11-19 14:10 | DRG 330 ==
LOC: ANHED 23:58 → ANH3MEDSUR 11-07 00:24
PROVIDERS: Nurse Practitioner Family; Physician Assistant; Surgery; Admitting Provider Internal Medicine; Emergency Provider Emergency Medicine; PCP Emergency Medicine; Visit Provider Nurse Practitioner Adult Health
PROC: 0DBB0ZZ Excision of Ileum, Open Approach (ICD-10-PCS; principal; 2024-11-07 16:00)
PROC: 0DBB0ZZ Excision of Ileum, Open Approach (ICD-10-PCS; CPT 49000; 2024-11-07 16:00)
DX: K42.0 Umbilical hernia with obstruction, without gangrene (principal); N39.0 Urinary tract infection, site not specified; N17.9 Acute kidney failure, unspecified; B96.4 Proteus (mirabilis) (morganii) as the cause of diseases classified elsewhere; N18.9 Chronic kidney disease, unspecified; I12.9 Hypertensive chronic kidney disease with stage 1 through stage 4 chronic kidney disease, or unspecified chronic kidney disease; E03.9 Hypothyroidism, unspecified; R91.1 Solitary pulmonary nodule; I73.9 Peripheral vascular disease, unspecified; K21.9 Gastro-esophageal reflux disease without esophagitis; M06.9 Rheumatoid arthritis, unspecified; E27.8 Other specified disorders of adrenal gland; F41.8 Other specified anxiety disorders; E86.0 Dehydration; Z96.1 Presence of intraocular lens; Z98.42 Cataract extraction status, left eye; Z98.41 Cataract extraction status, right eye; Z90.49 Acquired absence of other specified parts of digestive tract; Z86.718 Personal history of other venous thrombosis and embolism; Z87.891 Personal history of nicotine dependence; Z66 Do not resuscitate
CPT/HCPCS: 36415; 71045; 71250; 74177; 74230; 76856; 80048; 80053; 80069; 81001; 82088; 82104; 82306; 82533; 82607; 82746; 82784; 82948; 83605; 83690; 83735; 84100; 84244; 85025; 85027; 85610; 86140; 86430; 86606; 86850; 86900; 86901; 87086; 87186; 87493; 87635; 87637; 88302; 88304; 88307; 92610; 92611; 93005; 94640; 96361; 96365; 96367; 96375; 97110; 97161; 97165; 97530; 97535; 99285; A9270; J0360; J0650; J0696; J1650; J1741; J1836; J2003; J2405; J2470; J2704; J3010; J3475; J3480; J7030; J7040; J7120; Q9967

== ENCOUNTER 2024-12-09 10:10 | Inpatient (IN) | payer MEDICARE, MEDICAID, SELFPAY ==
[2024-12-09] VITALS (11 sets, daily range): BP systolic 117–141; BP diastolic 58–102; PULSE 55–85; RESP 14–23; TEMP 36.3–36.9; O2SAT 95–100; BMI 24.6
--- NOTE | ~2024-12-09 | XR_ITS ---
EXAMINATION: XR chest 2V DATE: 12/11/2024 14:27 INDICATION: Lung crackles. Fluid overload. TECHNIQUE: Frontal and lateral views of the chest were obtained. COMPARISON: Chest view 11/06/2024, CT abdomen and pelvis 11/13/2024 FINDINGS: There are small pleural effusions. There are airspace opacities at right lung base. No pneu mothorax. The heart size is normal. 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 IMPRESSION: 1. Airspace opacities at right lung base, consistent with atelectasis versus pneumonia. 2. Small pleural effusions. Reviewed, dictated and finalized at location A. RAL ASSIGNMENT REPORTER IMPRESSION: 1. Airspace opacities at right lung base, consistent with atelectasis versus pn eumonia. 2. Small pleural effusions.
--- NOTE | ~2024-12-09 | XR_ITS ---
EXAMINATION: XR chest 1V portable DATE: 12/14/2024 05:48 INDICATION: Pneumonia. TECHNIQUE: A single frontal view of the chest was obtained. COMPARISON: Chest 2 views 12/11/2024, CT abdomen and pelvis 11/13/2024 FINDINGS: There is mild atelectasis at the lung bases. There are small pleural effusions. No pneumoth orax. The heart size is normal. Surgical clips in the right upper quadrant are likely from cholecyste ctomy. IMPRESSION: 1. Mild atelectasis at the lung bases with improvement on the right. 2. Small pleural effusions with improvement on the right. Reviewed, dictated and finalized at location A. CIATE PROJECT MANAGER
[2024-12-09 11:08] LABS: Basophils Percent Auto 0.4 % (0.2-1.2); Eosinophils Percent Auto 0.1 % (0-4.4); Hematocrit 29.9 % (37.0-47.0); Hemoglobin 9.9 g/dL (12.0-15.0); Immature Granulocyte Absolute 0.04 K/mm3 (0.00-0.031); Immature Granulocyte Percent A 0.4 % (0-0.5); Lymphocytes Absolute Auto 1.05 K/mm3 (0.9-3.2); Lymphocytes Percent Auto 11.6 % (18.3-44.2); Mean Corpuscular HGB Conc 33.1 g/dl (32-36); Mean Corpuscular Hemoglobin 29.6 pg (26-34); Mean Corpuscular Volume 89.3 fl (80-100); Mean Platelet Volume 12.4 fl (7.4-10.4); Monocytes Absolute Auto 0.5 K/mm3 (0.1-0.6); Monocytes Percent Auto 5.3 % (2.6-8.5); Neutrophils Absolute Auto 7.4 K/mm3 (1.3-6.7); Neutrophils Percent Auto 82.2 % (45.5-73.1); Platelet Count Result 234 k/mm3 (150-375); Red Blood Count 3.35 M/mm3 (4.2-5.4); Red Cell Distribution Width 17.2 % (11.5-14.5)
[2024-12-09 11:26] LABS: Alanine Aminotransferase 25 U/L (6-35); Albumin Level 2.3 g/dL (3.5-5.1); Alkaline Phosphatase 88 U/L (38-126); Anion Gap 9 mmol/L (4-12); Aspartate Amino Transferase 27 U/L (14-36); Bilirubin,Total 0.6 mg/dL (0.2-1.3); Blood Urea Nitrogen 15 mg/dL (7-17); Carbon Dioxide 29 mmol/L (22-30); Chloride 105 mmol/L (98-107); Estimated CRCL calculation 19 ml/min; Estimated Glomerular Filt Rate 33; Glucose 81 mg/dL (65-110); Potassium 2.7 mmol/L (3.4-5.0); Sodium 143 mmol/L (137-145)
[2024-12-09 11:30] LABS: INR 1.1; Prothrombin Time 14.8 Seconds (11.1-14.7)
[2024-12-09 11:35] LABS: Magnesium 0.5 mg/dL (1.6-2.3)
--- NOTE | 2024-12-09 11:39 | PCCCNOTE ---
Called to the pt's room d/t concerns with placement into facility. Spoke to the patient and asked what brought her to the hospital and she stated, My hands are crooked . Asked what her plans were after discharge to go to home or facility and she became upset and stated, I'm not going to [facility] I'm going home! . Initially refused to have anyone called and finally agreed to have her friend Karuna whom she lives with called. Called Karuna, stated she was just discharged from [facility] on 12/08/24 after a stay for rehab d/t refusing to participate. Stated she had become incontinent while she was there. Noted she does Division of Aging coming out 2hr/day 5 days a week to help however cannot change her if she becomes incontinent at any other time. Stated she cannot get out of her bed provided at the home either. Karuna states this is her home and Arielle would be a guest there. After educating Karuna the pt would need assistance to cleanse herself every 2-3hours to avoid skin breakdown/infection Karuna stated she cannot lift/move the pt to complete this necessary task at all and placement would be a better option. Spoke with the ED provider and noted at this time the pt would be admitted to manage her hypokalemia. Did update Karuna and encouraged them to have this conversation as soon as possible and this case would be transferred to on the floor for possibly placement.elizabeth.
--- OUTSIDE RECORDS SUMMARY | 2024-12-09 11:41 | XMS_ITS | Referral Summary ---
Author Organization [facility] Address [address] [place] [address] Care Team Providers Care Crawler Crane Operator Name Role Phone Henry Hinojosa MD Primary Care Provider [phone] Source Comments [facility]non-owned Affiliates and Associated Physician Practices is amultiple site organization consisting of ambulatory clinics and hospital sitesin [place], [place], [place] and [place]. This disclosure is being madepursuant to the Care Everywhere program and may not contain all information available regarding this patient. Last updated 18.[facility] Allergies Active Allergy Reactions Criticality Noted Date Comments Penicillins Swelling 09/28/2015 Medications * Be aware that medications may not be up to date on this document. Alwaysverify current medications with the patient. Medication Sig Dispensed Refills Start Date End Date Status FLUoxetine (PROZAC) 20 MG capsule Take 20 mg by mouth once daily Active levothyroxine (SYNTHROID) 175 MCG tablet Take 175 mcg by mouth daily before breakfast Active valsartan (DIOVAN) 160 MG tablet Take 160 mg by mouth once daily Active NYSTATIN & DIAPER RASH PRODUCT EX by Apply externally route 2 times daily Active furosemide (LASIX) 40 MG tablet Take 40 mg by mouth every evening Active budesonide-formotero l (SYMBICORT) 160-4.5 MCG/ACT inhaler Inhale 2 Puffs by mouth 2 times daily Active albuterol HFA (PROAIR HFA) 108 (90 BASE) MCG/ACT inhaler Inhale 2 Puffs by mouth 2 times daily Active potassium chloride (KLOR-CON M) 10 MEQ tablet Take 10 mEq by mouth once daily Active furosemide (LASIX) 40 MG tablet Take 80 mg by mouth every morning Active pantoprazole EC (PROTONIX) 40 MG tablet Take 40 mg by mouth once daily Active methocarbamol (ROBAXIN) 500 MG tablet 4 times daily 09/24/2015 Active hydrocodone-acetamin ophen (NORCO) 5-325 MG tablet Take 1 Tab by mouth every 6 hours as needed for Pain 40 Tab 0 11/16/2015 Active aspirin (ASPIRIN) 81 MG tablet Take 81 mg by mouth once daily Active Cholecalciferol (VITAMIN D3) 3000 UNITSIndications:anatoliy es two tablets Take 1,000 Units by mouth once daily Reasons: takes two tablets Active multivitamin daily (THERAGRAN) tablet Take 1 Tab by mouth daily with food Active hydrocodone-acetamin ophen (NORCO) 5-325 MG tablet Take 1 Tab by mouth every 4 hours as needed for Pain 30 Tab 0 12/05/2015 Active Active Problems Problem Noted Date Diagnosed Date Bilateral lower leg cellulitis 12/04/2015 Venous stasis ulcers of both lower extremities 1 11/28/2014 Social History Tobacco Use Types Packs/Day Years Used Date Smoking Tobacco: Every Day Smokeless Tobacco: Never Tobacco Cessation:Ready to Q uit: Yes; Counseling Given: Yes Alcohol Use Standard Drinks/Week Comments No 0 (1 standard drink = 0.6 oz pur e alcohol) Sex and Gender Information Value Date Recorded Sex Assigned at Not on file Gender Identity Not on file Sexual Orientation Not on file Last Filed Vital Signs Vital Sign Reading Time Taken Comments Blood Pressure 125/65 12/05/2015 3:20 PM DELIVERY CONSULTANT Pulse 72 12/05/2015 3:20 PM DELIVERY CONSULTANT Temperature 36.9 ??C (98.4 ??F) 12/05/2015 3:20 PM CS T Respiratory Rate 20 12/05/2015 3:20 PM DELIVERY CONSULTANT Oxygen Saturation 95% 12/05/2015 3:20 PM DELIVERY CONSULTANT Inhaled Oxygen Concentration 21% 09/29/2015 9 :38 AM DELIVERY CONSULTANT Weight 126.6 kg (279 lb) 12/03/2015 7:24 AM DELIVERY CONSULTANT Height 160 cm (5' 3 ) 12/03/2015 7:24 AM DELIVERY CONSULTANT Body Mass Index 49.42 12/03/2015 7:24 AM DELIVERY CONSULTANT Functional Status Functional Status Response Date of Assess ment Is person deaf or have serious hearing difficult y? No 12/03/2015 Is person blind or have serious difficulty seein g? No 12/03/2015 Does person have serious dif ficulty walking/climbing stairs? Yes 12/03/2015 Does person have difficulty dressing/bathing? Ye s 12/03/2015 Does person have difficulty doing errands alone? Yes 12/03/2015 Cognitive Status Response Date of Assessm ent Does person have difficulty concentrating/remembering/making decisions? No 12/03/2015 Plan of Treatment Not on file Advance Directives * Full Code (Latest Code Status on File) Date Activated Date Inactivated Comments 12/03/2015 1:10 PM 12/05/2015 8:14 PM Care Teams Crawler Crane Operator Relationship Specialty Start Date End Date Henry Hinojosa MD [address] [address] PCP - General 09/21/22
--- OUTSIDE RECORDS SUMMARY | 2024-12-09 11:41 | XMS_ITS | Clinical Summary ---
Author Organization [facility] Address [address] [place] [address] Care Team Providers Care Tube And Manifold Builder Name Role Phone Henry Hinojosa MD Primary Care Provider [phone] Source Comments [facility],non-owned Affiliates and Associated Physician Practices is amultiple site organization consisting of ambulatory clinics and hospital sitesin [place], [place], [place] and [place]. This disclosure is being madepursuant to the Care Everywhere program and may not contain all information available regarding this patient. Last updated 18.[facility] Allergies Active Allergy Reactions Criticality Noted Date [...] ulcers of both lower extremities 1 11/28/2014 Family History Medical History Relation Name Comments Heart Disease Father Diabetes Mother Relation Name Status Comments Father Mother Social History Tobacco Use Types Packs/Day Years [...] Comments Blood Pressure 125/65 12/05/2015 3:20 PM TRACK REPAIRER HELPER Pulse 72 12/05/2015 3:20 PM TRACK REPAIRER HELPER Temperature 36.9 ??C (98.4 ??F) 12/05/2015 3:20 PM CS T Respiratory Rate 20 12/05/2015 3:20 PM TRACK REPAIRER HELPER Oxygen Saturation 95% 12/05/2015 3:20 PM TRACK REPAIRER HELPER Inhaled Oxygen Concentration 21% 09/29/2015 9 :38 AM TRACK REPAIRER HELPER Weight 126.6 kg (279 lb) 12/03/2015 7:24 AM TRACK REPAIRER HELPER Height 160 cm (5' 3 ) 12/03/2015 7:24 AM TRACK REPAIRER HELPER Body Mass Index 49.42 12/03/2015 7:24 AM TRACK REPAIRER HELPER Plan of Treatment Health Maintenance Due Date Last Done Comments BONE DENSITY TESTING 1940 DTAP/TDAP/TD VACCINES (1 - Tdap) 1959 PNEUMOCOCCAL VACCINE 50+ (1 of 2 - PCV) 1959 ZOSTER VACCINE (1 of 2) 1990 Respiratory Syncytial Virus (RSV) Vaccine Pt: or over 60 yrs (1 - 1-dose 75+ series) 2015 COVID-19 VACCINE (1 - 2023-2 5 season) 2024 INFLUENZA VACCINE (#1) 2024 DEPRESSION SCREENING 11/06/2024 MEDICARE AWV ? CALENDAR YEAR 2024 HEPATITIS B VACCINE Aged Out No longe r eligible based on patient's age to complete this topic HIB VACCINE Aged Out No longer eligi ble based on patient's age to complete this topic HPV VACCINE Aged Out No longer eligi ble based on patient's age to complete this topic MENINGOCOCCAL (Group B) VACCINE Aged Out No longer eligible based on patient's age to complete this topic MENINGOCOCCAL VACCINE Aged Out No buck arelis eligible based on patient's age to complete this topic Advance Directives * Full Code (Latest Code Status on File) Date Activated Date Inactivated Comments 12/03/2015 1:10 PM 12/05/2015 8:14 PM Care Teams Tube And Manifold Builder Relationship Specialty Start Date End Date Henry Hinojosa MD [facility] [address] [address] PCP - General 09/21/22
--- OUTSIDE RECORDS SUMMARY | 2024-12-09 11:41 | XMS_ITS | Clinical Summary ---
Author Organization [facility] Address [address] [place] [address] Phone Care Team Providers Care Newborn Photographer Name Role Phone Henry Hinojosa MD Primary Care Provider [phone] Medications polyethylene glycol (MIRALAX) Powder Use entire 255g bottle with 64oz of clear liquid as directed for colonoscopy prep. 255 g 0 7 Active Social History Tobacco Use Types Packs/Day Years Used Date Smoking Tobacco: Never Assessed Comments Unknown Sex and Gender Information Value Date Recorded Sex Assigned at Not on file Legal Sex Female 11:47 PM CDT Gender Identity Not on file Sexual Orientation Not on file Plan of Treatment Health Maintenance Due Date Last Done Comments DEXA Bone Density 1940 Hepatitis C Virus (HCV) Screening 1940 TdaP Immunization 1940 Pneumococcal Immunization (5 0+ years) (1 of 1 - PCV) 1990 Zoster Immunization (1 of 2) 1990 Respiratory Syncytial Virus (RSV) Immunization (Adult) (1 - 1-dose 75+ series) 2015 Influenza Immunization (#1) 2024 SARS-COV-2 Immunization ( - season) 2024 Hepatitis B Immunization Aged Out No longer eligible based on patient's age to complete this topic Meningococcal Immunization (ACWY) Aged Out No longer eligible based on patient's age to complete this topic Rotavirus Immunization Aged Out No lo nger eligible based on patient's age to complete this topic Care Teams Newborn Photographer Relationship Specialty Start Date End Date Henry Hinojosa MD [address] [facility] [address] [place] [address] (work) PCP - General Internal Medicine 01/26/17
--- OUTSIDE RECORDS SUMMARY | 2024-12-09 11:41 | XMS_ITS | Patient Health Summary ---
Author Organization [facility] Address [address] [place] [address] Care Team Providers Care Score Caller Name Role Phone Henry Hinojosa MD Primary Care Provider [phone] Note from [facility],non-owned Affiliates and Associated Physician Practices is amultiple site organization consisting of ambulatory clinics and hospital sitesin [place], [place], [place] and [place]. This disclosure is being madepursuant to the Care Everywhere program and may not contain all information available regarding this patient. Last updated 18.[facility] Allergies * Penicillins(Swelling) Medications * Be aware that medications may not be up to date on this document. Alwaysverify current medications with the patient. * FLUoxetine (PROZAC) 20 MG capsule Take 20 mg by mouth once daily * levothyroxine (SYNTHROID) 175 MCG tablet Take 175 mcg by mouth daily before breakfast * valsartan (DIOVAN) 160 MG tablet Take 160 mg by mouth once daily * NYSTATIN & DIAPER RASH PRODUCT EX by Apply externally route 2 times daily * furosemide (LASIX) 40 MG tablet Take 40 mg by mouth every evening * budesonide-formoterol (SYMBICORT) 160-4.5 MCG/ACT inhaler Inhale 2 Puffs by mouth 2 times daily * albuterol HFA (PROAIR HFA) 108 (90 BASE) MCG/ACT inhaler Inhale 2 Puffs by mouth 2 times daily * potassium chloride (KLOR-CON M) 10 MEQ tablet Take 10 mEq by mouth once daily * furosemide (LASIX) 40 MG tablet Take 80 mg by mouth every morning * pantoprazole EC (PROTONIX) 40 MG tablet Take 40 mg by mouth once daily * methocarbamol (ROBAXIN) 500 MG tablet(Started 09/24/2015) 4 times daily * hydrocodone-acetaminophen (NORCO) 5-325 MG tablet(Started 11/16/2015) Take 1 Tab by mouth every 6 hours as needed for Pain * aspirin (ASPIRIN) 81 MG tablet Take 81 mg by mouth once daily * Cholecalciferol (VITAMIN D3) 3000 UNITS Take 1,000 Units by mouth once daily Reasons: takes two tablets * multivitamin daily (THERAGRAN) tablet Take 1 Tab by mouth daily with food * hydrocodone-acetaminophen (NORCO) 5-325 MG tablet(Started 12/05/2015) Take 1 Tab by mouth every 4 hours as needed for Pain Active Problems Problem Noted Date Diagnosed Date [...] Comments Blood Pressure 125/65 12/05/2015 3:20 PM DRYING MACHINE OPERATOR Pulse 72 12/05/2015 3:20 PM DRYING MACHINE OPERATOR Temperature 36.9 ??C (98.4 ??F) 12/05/2015 3:20 PM CS T Respiratory Rate 20 12/05/2015 3:20 PM DRYING MACHINE OPERATOR Oxygen Saturation 95% 12/05/2015 3:20 PM DRYING MACHINE OPERATOR Inhaled Oxygen Concentration 21% 09/29/2015 9 :38 AM DRYING MACHINE OPERATOR Weight 126.6 kg (279 lb) 12/03/2015 7:24 AM DRYING MACHINE OPERATOR Height 160 cm (5' 3 ) 12/03/2015 7:24 AM DRYING MACHINE OPERATOR Body Mass Index 49.42 12/03/2015 7:24 AM DRYING MACHINE OPERATOR Procedures * XR CHEST 1VW PORTABLE(Performed 12/05/2015) Performed for Hypoxia * BASIC METABOLIC PANEL (CALCIUM TOTAL)(Performed 12/04/2015) * CBC W AUTO DIFFERENTIAL(Performed 12/04/2015) * HEMOGLOBIN A1C(Performed 12/04/2015) * INCISION AND DRAINAGE LEG/KNEE(Performed 12/03/2015) * EKG 12-LEAD(Performed 12/03/2015) Performed for Preop examination * BASIC METABOLIC PANEL (CALCIUM TOTAL)(Performed 12/03/2015) Performed for Preop examination * INCISION AND DRAINAGE LEG/KNEE(Performed 09/29/2015) * VAS BILATERAL VENOUS DUPLEX LE(Performed 09/28/2015) Performed for Pain in joint, lower leg, unspecified laterality * VAS ARTERIAL ANKLE ARM INDEX(Performed 09/28/2015) Performed for Pain in joint, lower leg, unspecified laterality Results * XR CHEST 1VW PORTABLE (12/05/2015 4:23 PM DRYING MACHINE OPERATOR) Anatomical Region Laterality Modality Chest Radiographic Radha ging 12/05/2015 5:04 PM DRYING MACHINE OPERATOR Impressions 12/05/2015 5:04 PM DRYING MACHINE OPERATOR Cardiomegaly and basilar atelectasis. Narrative 12/05/2015 5:04 PM DRYING MACHINE OPERATOR AP Portable Chest Indication: Cough Findings: A single portable view of the chest shows cardiomegaly. There is linear atelectasis and there are increased interstitial markings at the bases. Procedure Note Marcy Rubin MD - 12/05/2015 AP Portable Chest Indication: Cough Findings: A single portable view of the chest shows cardiomegaly. There is linear atelectasis and there are increased interstitial markings at the bases. IMPRESSION Cardiomegaly and basilar atelectasis. Tita Newell MD DIAGNOSTIC IMAGING O RDERABLES * HEMOGLOBIN A1C (12/04/2015 4:05 AM DRYING MACHINE OPERATOR) Hemoglobin A1c 5.3 4.2 - 6.3 % 12/04/2015 5:20 AM DRYING MACHINE OPERATOR [facility] Estimated Average Glucose 105 mg/dL 12/04/2015 5:20 AM DRYING MACHINE OPERATOR [facility] Whole Blood BLOOD SPECIMEN WITH EDTA / Unknown 12/04/2015 4:05 AM DRYING MACHINE OPERATOR 12/04/2015 4:43 AM DRYING MACHINE OPERATOR Jacek Prasad PA-C LAB - CHEMISTRY ALEKSEY REN [facility] [address] [place] [address] * (ABNORMAL) CBC W AUTO DIFFERENTIAL (12/04/2015 4:05 AM [facility]) [facility] Signature WBC 10.9(H) 4.4 - 10.7 x10^9/L 12/04/2015 5:09 AM [facility] WBC Corrected x10^9/L 12/04/2015 5:09 AM [facility] RBC 4.61 3.80 - 5.20 x10^12/L 12/04/2015 5:09 AM [facility] Hemoglobin 13.6 12.0 - 15.6 gm/dL 12/04/2015 5:09 AM [facility] Hematocrit 42.7 35.9 - 45.5 % 12/04/2015 5:09 AM [facility] MCV 92.6 80.7 - 98.3 fl 12/04/2015 5:09 AM [facility] MCH 29.5 26.7 - 34.0 pg 12/04/2015 5:09 AM [facility] MCHC 31.9 30.8 - 35.9 gm/dL 12/04/2015 5:09 AM [facility] Platelet Count 307 153 - 416 x10^9/L 12/04/2015 5:09 AM [facility] RDW-CV 17.1(H) 12.1 - 14.9 % 12/04/2015 5:09 AM [facility] MPV 11.7 9.4 - 12.9 fl 12/04/2015 5:09 AM [facility] Neutrophils % 73.9(H) 44.0 - 73.0 % 12/04/2015 5:09 AM [facility] Lymphocytes % 20.6 20.0 - 43.0 % 12/04/2015 5:09 AM [facility] Monocytes % 4.3(L) 5.0 - 13.0 % 12/04/2015 5:09 AM [facility] Eosinophils % 0.2 0.0 - 6.0 % 12/04/2015 5:09 AM [facility] Basophils % 0.6 0.0 - 2.0 % 12/04/2015 5:09 AM [facility] Immature Granulocytes 0.4 0 - 1 % 12/04/2015 5:09 AM [facility] Neutrophil Absolute 8.04(H) 2.01 - 7.14 x10^9/L 12/04/2015 5:09 AM [facility] Lymphocytes Absolute 2.24 1.07 - 3.94 x10^9/L 12/04/2015 5:09 AM [facility] Monocytes Absolute 0.47 0.26 - 1.07 x10^9/L 12/04/2015 5:09 AM [facility] Eosinophils Absolute 0.02 0 - 0.47 x10^9/L 12/04/2015 5:09 AM [facility] Basophils Absolute 0.06 0 - 0.08 x10^9/L 12/04/2015 5:09 AM [facility] Immature Granulocytes Absolute 0.04 0.00 - 0.06 x10^9/L 12/04/2015 5:09 AM [facility] nRBC Auto 0 /100 WBC 12/04/2015 5:09 AM [facility] Blood BLOOD SPECIMEN / Unknown 12/04/2015 4:05 AM DRYING MACHINE OPERATOR 12/04/2015 4:43 AM [facility] Jacek Prasad PA-C LAB - HEMATOLOGY ORD ERABLES [facility] [address] [place] [address] * (ABNORMAL) BASIC METABOLIC PANEL (CALCIUM TOTAL) (12/04/2015 4:05 AM [facility]) Only the most recent of2 resultswithin the time period is included. Glucose 122(H) 74 - 106 mg/dL 12/04/2015 5:10 AM [facility] Sodium 139 136 - 145 mmol/L 12/04/2015 5:10 AM [facility] Potassium 3.9 3.5 - 5.1 mmol/L 12/04/2015 5:10 AM [facility] Chloride 102 98 - 107 mmol/L 12/04/2015 5:10 AM [facility] CO2 33(H) 22 - 31 mmol/L 12/04/2015 5:10 AM [facility] Calcium 9.0 8.5 - 10.1 mg/dL 12/04/2015 5:10 AM [facility] Anion Gap 4(L) 5 - 20 mmol/L 12/04/2015 5:10 AM [facility] BUN 12 7 - 21 mg/dL 12/04/2015 5:10 AM [facility] Creatinine 0.99 0.50 - 1.30 mg/dL 12/04/2015 5:10 AM [facility] eGFR by MDRD 55 mL/min/1.7 3m2 12/04/2015 5:10 AM [facility] eGFR by MDRD >60 mL/min/1.7 3m2 12/04/2015 5:10 AM [facility] Blood BLOOD SPECIMEN / Unknown 12/04/2015 4:05 AM DRYING MACHINE OPERATOR 12/04/2015 4:43 AM DRYING MACHINE OPERATOR Jacek Prasad PA-C LAB - CHEMISTRY ALEKSEY REN Performing Organization Address [facility] Co de Phone Number [facility] [address] [place] [address] * EKG 12-LEAD (12/03/2015 8:02 AM DRYING MACHINE OPERATOR) Ventricular Rate 69 BPM [facility] Atrial Rate 69 BPM [facility] P-R Interval 118 ms [facility] QRS Duration ms 100 ms [facility] Q-T Interval ms 454 ms [facility] QTC Calculation (Bezet) 486 ms [facility] Calculated P [place] 43 degrees [facility] Calculated R [place] -32 degrees [facility] Calculated T [place] 43 degrees [facility] Interpretation EKG Normal sinus rhythm Left axis deviation Abnormal ECG No previous ECGs available Confirmed by MD CLIFFORD, TRENA ([id number]) on 12/03/2015 6:09:42 PM [facility] 12/03/2015 8:02 AM DRYING MACHINE OPERATOR 12/03/2015 6:09 PM DRYING MACHINE OPERATOR Henry Seymour MD ECG ORDERABLES Performing Organization Address [facility] Co de Phone Number [facility] * VAS ARTERIAL ANKLE ARM INDEX (09/28/2015 11:30 AM DRYING MACHINE OPERATOR) Anatomical Region Laterality Modality Ultrasound 09/28/2015 11:0 0 AM DRYING MACHINE OPERATOR Narrative Procedure Note Henry Seymour MD - 09/28/2015 [facility] [address], [address] [place] [address] Lower Extremity Arterial Doppler Report Pat.Name: STEPHON HERNANDEZ Pat.ID: [id number] St.Date: 09/28/2015 Exam Time: 11:00:00 AM Study Type:KWESI/PVR Age: 10 1940,75Y Sex: FEMALE Sonogrphr: Devonte Nicholson Rvt Pat. Stat.:Outpatient ICD - 9: I73.9 Peripheral vascular disease CPT - 4: 12945 Procedures:Ankle Brachial Index Visit ID: [id number] SUMMARY: Moderately diminished arterial circulation of the lower extremeties bilaterally, waveforms only. FINDINGS: Procedure: The arterial vasculature of the lower extremities was evaluated by analysis of Doppler pressures and waveforms obtained in the legs at rest. Study Quality: This study is of adequate technical quality. KWESI: Arterial doppler waveforms of the right COLORECTAL SURGEON are biphasic. Arterial doppler waveforms of the left COLORECTAL SURGEON are biphasic. Signed 09/28/2015 03:08 PM Henry Seymour MD Henyr Seymour MD VASCULAR LAB ORDER NESS * VAS VENOUS DUPLEX LE BILATERAL (09/28/2015 11:30 AM DRYING MACHINE OPERATOR) Anatomical Region Laterality Modality Ultrasound 09/28/2015 12:0 7 PM DRYING MACHINE OPERATOR Narrative Procedure Note Henry Seymour MD - 09/28/2015 [facility] [address], [address] [place] [address] Lower Extremity Venous Ultrasound Report Pat.Name: STEPHON HERNANDEZ.ID: [id number] St.Date: 09/28/2015 Exam Time: 12:07:00 PM Study Type:LE Venous Age: 10 1940,75Y Sex: FEMALE Sonogrphr: COURT Gee. Stat.:Outpatient ICD - 9: I82.4 Acute embolism and thrombosis of deep veins of lower extremity CPT - 4: 24745 Procedures:Lower Extremity Venous - Bilateral Visit ID: [id number] SUMMARY: There is no evidence of an acute deep vein thrombosis in any of the major veins of either lower extremity. FINDINGS: Procedure: Venous duplex imaging of both lower extremities was performed using color flow and spectral Doppler analysis. Study Quality: This study is of adequate technical quality. Technically difficult exam due to patient positioning. Bilateral: All vessels seen appear patent and compressible. There was spontaneous and phasic flow seen in all the major veins of both lower extremities. Appropriate augmentation with distal compression. No evidence of reflux with proximal compression. Appropriate augmentation with distal compression. Signed 09/28/2015 03:08 PM Henry Seymour MD Henry Seymour MD VASCULAR LAB ORDER NESS Care Teams Score Caller Relationship Specialty Start Date End Date Henry Hinojosa MD [facility] [facility] [address] [place] [address] PCP - General 09/21/22
--- OUTSIDE RECORDS SUMMARY | 2024-12-09 11:41 | XMS_ITS | Encounter Summary ---
Author Organization [facility] Health Address [address] [place] [address] Care Team Providers Care Continuous Dryout Operator Name Role Phone Robert Zuniga MD Primary Care Provider [phone] Karthik Benjamin MD Primary Care Provider [phone] Henry Hinojosa MD Primary Care Provider [phone] Encounter Details Date Type Department Care Team (Late st Contact Info) Description 09/28/2015 [facility] Outpatient Visit [facility] [address] [place] [address] [place] [address] [address] Social History Tobacco Use Types Packs/Day Years Used Date Smoking Tobacco: Every Day Smokeless Tobacco: Never Alcohol Use Standard Drinks/Week Comments No 0 (1 standard drink = 0.6 oz pur e alcohol) Sex and Gender Information Value Date Recorded Sex Assigned at Not on file Gender Identity Not on file Sexual Orientation Not on file documented as of this encounter Plan of Treatment Not on file documented as of this encounter Visit Diagnoses Not on filedocumented in this encounter Care Teams Continuous Dryout Operator Relationship Specialty Start Date End Date Robert Zuniga MD [address] [place] [address] PCP - General Family Medicine 09/18/15 11/13/19 Karthik Benjamin MD [address] [place] [address] PCP - General 11/14/19 09/20/22 Henry Hinojosa MD [address] [place] [address] PCP - General 09/21/22 documented as of this encounter
--- OUTSIDE RECORDS SUMMARY | 2024-12-09 11:41 | XMS_ITS | Referral Summary ---
Author Organization [facility] [place] [address] Address [address] [place] [address] Care Team Providers Care Preassembler Printed Circuit Board Name Role Phone Patel Adrian MD Primary Care Provider [phone] Allergies Active Allergy Reactions Criticality Noted Date Comments Alverto Inhibitors Rash Medium 03/23/2020 Penicillins Anaphylaxis Reaction: ANAPHYLAXIS Medications potassium chloride 10 mEq/100 mL Active fluticasone propionate (FLOVENT DISKUS) 50 mcg/actuation diskus inhaler Inhale 1 puff 2 (two) times a day Rinse mouth with water after use. Do not swallow. Active levothyroxine (SYNTHROID) 150 mcg tablet Take 150 mcg by mouth plastics scientist before breakfast Active nystatin 100,000 unit/mL suspension Take 500,000 Units by mouth 4 (four) times a day Active pantoprazole DR (PROTONIX) 40 mg EC tablet Take 40 mg by mouth daily Active zolpidem (AMBIEN) 5 mg tablet Take 5 mg by mouth nightly as needed Active albuterol 5 mg/mL nebulizer solution Take 2.5 mg by nebulization every 6 (six) hours as needed Active Symbicort 160-4.5 mcg/actuation inhaler INHALE 2 PUFFS BY MOUTH TWICE DAILY IN THE MORNING AND EVENING 0 Active losartan (COZAAR) 50 mg tablet Take 50 mg by mouth daily Active furosemide (LASIX) 20 mg tablet 0 Active methocarbamoL (ROBAXIN) 500 mg tablet 0 Active potassium chloride ER 10 mEq CR tablet 0 Active potassium chloride ER 10 mEq CR capsule TK ONE C PO QD 0 Active sertraline (ZOLOFT) 25 mg tablet 0 Active Active Problems Problem Noted Date Diagnosed Date Lower extremity edema 03/24/2020 Bilateral lower leg cellulitis 12/04/2015 Venous stasis ulcers of both lower extremities 1 11/28/2014 Immunizations Name Administration Dates Next Due Influenza, Split 07/23/2013 Influenza, Trivalent, High D ose, Split, Preservative Free, Intramuscular 08/09/2019,07/10/2018,07/14/2017,08/21 Pneumococcal Conjugate PCV 13 08/21/2015 ZOSTER Recombinant 12/09/2019,08/09/2019 Social History Tobacco Use Types Packs/Day Years Used Date Smoking Tobacco: Every Day Personal Safety Answer Date Recorded Getting School Help Needed Not on file 01/18 Comments Unknown Sex and Gender Information Value Date Recorded Sex Assigned at Not on file Legal Sex Female 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 Gender Identity Not on file Sexual Orientation Not on file Last Filed Vital Signs Vital Sign Reading Time Taken Comments Blood Pressure 136/86 03/24/2020 11:43 AM CDT Pulse 67 03/24/2020 11:43 AM CDT Temperature - - Respiratory Rate - - Oxygen Saturation - - Inhaled Oxygen Concentration - - Weight 108.9 kg (240 lb) 03/24/2020 11:43 AM CDT Height 162.6 cm (5' 4 ) 03/24/2020 11:43 AM CDT Body Mass Index 41.2 03/24/2020 11:43 AM CDT Plan of Treatment Not on file Insurance [id number] CON [employer] MEDICARE MEDICARE [place] [address] [place] [address] [employer] MEDICARE GOLD Care Teams Preassembler Printed Circuit Board Relationship Specialty Start Date End Date Patel Adrian MD [address] [place] [address] PCP - General 07/30/20
--- OUTSIDE RECORDS SUMMARY | 2024-12-09 11:41 | XMS_ITS | Clinical Summary ---
Author Organization [facility] [place] [address] Address [address] [place] [address] Care Team Providers Care Sander Machine Name Role Phone Patel Adrian MD Primary Care Provider [phone] Allergies Active Allergy Reactions Criticality Noted Date Comments Alverto Inhibitors Rash Medium 03/23/2020 Penicillins Anaphylaxis Reaction: ANAPHYLAXIS Medications potassium chloride 10 mEq/100 mL Active fluticasone propionate (FLOVENT DISKUS) 50 mcg/actuation diskus inhaler Inhale 1 puff 2 (two) times a day Rinse mouth with water after use. Do not swallow. Active levothyroxine (SYNTHROID) 150 mcg tablet Take 150 mcg by mouth foundry superintendant before breakfast Active nystatin 100,000 unit/mL suspension [...] Conjugate PCV 13 08/21/2015 ZOSTER Recombinant 12/09/2019,08/09/2019 Medical History Medical History Date Comments COPD (chronic obstructive pulmonary disease) (HC C) Family History Medical History Relation Name Comments Diabetes Mother Relation Name Status Comments Father Mother Social History Tobacco Use Types Packs/Day Years Used Date Smoking Tobacco: Every Day Personal Safety Answer Date Recorded Getting School Help Needed Not on file 01/18 Comments Unknown Sex and Gender Information Value Date Recorded Sex Assigned at Not on file Legal Sex Female 10:55 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, [place] REPLACED BY [facility] MEDICARE MEDICARE MEDICARE [place] [employer] MEDICARE GOLD Care Teams Sander Machine Relationship Specialty Start Date End Date Patel Adrian MD [address] [place] [address] PCP - General 07/30/20
--- NOTE | 2024-12-09 11:47 | ED_ITS ---
HPI - General Adult General Chief complaint: Altered Mental Status Stated complaint: AMS Time Seen by Provider: 12/09/24 10:28 Source: patient Mode of arrival: EMS Limitations: no limitations History of Present Illness HPI narrative: 84-year-old with a history of hypertension, COPD, recent history of small-bowel obstruction secondary to incarcerated umbilical hernia discharge from the hospital in middle of November [facility] however patient is not participating in the rehab was discharged home yesterday. Her friend who was taking care of for states that she is unable to manage at home as she is unable to walk and she is incontinent. Patient upon arrival states that her fingers are contracted and she cannot use. She denies having any headache, chest pain or shortness of breath. Onset (ago): day(s) (1) Severity: mild Associated symptoms: denies other symptoms Related Data Home Medications ?Medication ?Instructions ?Recorded ?Confirmed ?Last Taken ?Type levothyroxine 150 mcg tablet 150 mcg PO DAILY 08/31/23 11/07/24 Unknown History meclizine 25 mg tablet 25 mg PO Q8H PRN Dizziness 08/31/23 11/07/24 Unknown History melatonin 10 mg tablet 10 mg PO HS PRN Insomnia 08/31/23 11/07/24 Unknown History donepezil 5 mg tablet 10 mg PO DAILY 03/01/24 11/07/24 Unknown History atorvastatin 20 mg tablet 20 mg PO QPM 11/07/24 11/07/24 Unknown History losartan 50 mg tablet 50 mg PO QHS 11/07/24 11/07/24 Unknown History Allergies Allergy/AdvReac Type Severity Reaction Status Date / Time Penicillins Allergy Severe Hives Verified 12/09/24 10:28 Review of Systems 2 Review of Systems: All systems reviewed & are unremarkable except as noted in HPI and below Constitutional: Constitutional: Reports no additional constitutional complaints Eyes: Eyes: Reports no additional eye complaints ENT: Reports system reviewed and no additional complaints, except as documented Cardiovascular: Cardiovascular: Reports no additional cardiovascular complaints Respiratory: Respiratory: Reports no additional respiratory complaints Gastrointestinal: Gastrointestinal: Reports no additional gastrointestinal complaints Musculoskeletal: Musculoskeletal: Reports no additional musculoskeletal complaints Integumentary/Breasts: Skin/Breast: Reports system reviewed and no additional complaints, except as docu Neurologic: Reports system reviewed and no additional complaints, except as documented [facility] Past Medical History Medical History Pancreatitis UTI (urinary tract infection) Right kidney mass Acute UTI JC (acute kidney injury) Chronic diarrhea Acute UTI Umbilical hernia Anxiety and depression COPD mixed type PVD (peripheral vascular disease) red legs s/p bermudez DVT (deep venous thrombosis) Gastroesophageal reflux disease Hypertension Small bowel obstruction Vitamin D deficiency UTI (urinary tract infection) Hypoxia Discharge planning issues Kidney stones Right kidney stone December 2018 Fall as cause of accidental injury in home as place of occurrence Rheumatoid arthritis Chronic venous stasis dermatitis Closed fracture of greater tuberosity of humerus Fracture of neck of humerus Hypothyroidism (acquired) Depression Hyperglycemia Surgical History Surgical History History of evacuation of hematoma Of lateral thigh 2014 Status post cataract extraction of both eyes with insertion of intraocular lens 2004 History of section X1 History of cholecystectomy Family History Family History Sibling Patient's sister is in good health Mother Diabetes mellitus, Onset Age: 41 Father Heart attack Cardiovascular disease Social History Social History Social History: No alcohol or drug use. Ex-smoker. Primary care physician: Dr. Henry Hinojosa Code status: DNR/DNI Medical POA: Fatemeh Pittman (daughter). Alternate surrogate decision maker: Rubens Stone, joiner. Smoking packs per day: 2 Smoking cigarettes per day: 40.0 Years smoked: 50 Smoking pack-years: 100.00 Smoking status: Former smoker Second hand tobacco smoke exposure: No Alcohol intake: never Substance use: never Substance use type: does not use Do You Feel Safe in your Home?: Yes Lack of Transportation: No Lack of Food: Never True Current Housing: I Have Housing Concerned About Future Housing: No Difficulty Paying Gas/Electric Bills: No Difficulty Paying for Meds: No Currently Unemployed: No Education: Grade School Difficulty w/ Childcare or Family Care: No Living arrangements: with friend(s) Additional living arrangements comments: lives with joiner/friend rubens Occupation/Education: retired 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 Spiritual care concerns: No Exam 2 Narrative: GENERAL: Well-appearing, thin, and in no acute distress. HEAD: Normocephalic, atraumatic. EYES: PERRLA and EOMI. ENT: Nares clear, no rhinorrhea or epistaxis. Mucous membranes moist. NECK: Supple. CHEST: Clear to auscultation. No respiratory distress. HEART: Regular rate and rhythm. No murmur heard. Normal peripheral pulses. ABDOMEN: Soft, nontender, nondistended, normal active bowel sounds. EXTREMITIES: Normal range of motion. No edema. Has contractures in the fingers SKIN: Warm, dry, no rash. NEURO: No focal deficits. Alert and oriented x3. PSYCH: Normal mood and affect. Course Course Emergency Course: Patient declined to go back to the penitentiary however involved did get her blood work which showed hypokalemia hypomagnesemia and hypocalcemia will admit her to the hospital consult PT OT for possible placement. Discussed with the hospitalist accepted the patient . Vital Signs Vital signs: Vital Signs Temperature 36.9 C 12/09/24 10:04 Pulse Rate 73 12/09/24 10:04 Respiratory Rate 17 12/09/24 10:04 Blood Pressure 126/102 H 12/09/24 10:04 Pulse Oximetry 96 12/09/24 10:04 Oxygen Delivery Room Air 12/09/24 10:04 Temperature 36.9 C 12/09/24 10:04 Pulse Rate 73 12/09/24 10:04 Respiratory Rate 17 12/09/24 10:04 Blood Pressure 126/102 H 12/09/24 10:04 Pulse Oximetry 95 12/09/24 10:26 Oxygen Delivery Room Air 12/09/24 10:26 Medical Decision Making Medical Records Medical records reviewed: Yes I reviewed the external patient's medical records. Vital Signs Vital Signs: Vital Signs Temperature 36.9 C 12/09/24 10:04 Pulse Rate 73 12/09/24 10:04 Respiratory Rate 17 12/09/24 10:04 Blood Pressure 126/102 H 12/09/24 10:04 Pulse Oximetry 96 12/09/24 10:04 Oxygen Delivery Room Air 12/09/24 10:04 Temperature 36.9 C 12/09/24 10:04 Pulse Rate 73 12/09/24 10:04 Respiratory Rate 17 12/09/24 10:04 Blood Pressure 126/102 H 12/09/24 10:04 Pulse Oximetry 95 12/09/24 10:26 Oxygen Delivery Room Air 12/09/24 10:26 Lab Data 12/09/24 10:55 12/09/24 10:55 Labs: Lab Results 12/09/24 Range/Units 10:55 WBC 9.0 (4.5-10.0) K/mm3 RBC 3.35 L (4.2-5.4) M/mm3 Hgb 9.9 L (12.0-15.0) g/dL Hct 29.9 L (37.0-47.0) % MCV 89.3 (80-100) fl MCH 29.6 (26-34) pg MCHC 33.1 (32-36) g/dl RDW 17.2 H (11.5-14.5) % Plt Count 234 (150-375) k/mm3 MPV 12.4 H (7.4-10.4) fl Immature Gran % (Auto) 0.4 (0-0.5) % Neut % (Auto) 82.2 H (45.5-73.1) % Lymph % (Auto) 11.6 L (18.3-44.2) % Payne % (Auto) 5.3 (2.6-8.5) % Eos % (Auto) 0.1 (0-4.4) % Baso % (Auto) 0.4 (0.2-1.2) % Lymph # (Auto) 1.05 (0.9-3.2) K/mm3 Payne # (Auto) 0.5 (0.1-0.6) K/mm3 Eos # (Auto) 0.0 (0-0.3) K/mm3 Baso # (Auto) 0.0 (0.0-0.1) K/mm3 Abs Immat Gran (auto) 0.04 H (0.00-0.031) K/mm3 Absolute Neuts (auto) 7.4 H (1.3-6.7) K/mm3 Absolute Nucleated RBC 0.000 (0.0-0.012) K/mm3 Nucleated RBC % 0.0 (0.0-0.2) % PT 14.8 H (11.1-14.7) Seconds INR 1.1 Sodium 143 (137-145) mmol/L Potassium 2.7 L* (3.4-5.0) mmol/L Chloride 105 (98-107) mmol/L Carbon Dioxide 29 (22-30) mmol/L Anion Gap 9 (4-12) mmol/L BUN 15 (7-17) mg/dL Creatinine 1.49 H (0.7-1.0) mg/dL Estim Creat Clear Calc 19 ml/min Estimated GFR 33 L (59 - ) Glucose 81 (65-110) mg/dL Calcium 5.0 L* (8.4-10.2) mg/dL Magnesium 0.5 L (1.6-2.3) mg/dL Total Bilirubin 0.6 (0.2-1.3) mg/dL AST 27 (14-36) U/L ALT 25 (6-35) U/L Alkaline Phosphatase 88 (38-126) U/L Total Protein 6.0 L (6.3-8.2) g/dL Albumin 2.3 L (3.5-5.1) g/dL ECG Data EKG #1: ECG completion date: 12/09/24 ECG completion time: 12:02 EKG Interpretation: bradycardia (55), sinus rhythm, non-specific ST changes, left axis and other (Baseline artifact) Discharge Plan Discharge Clinical Impression: Weakness, Acute hypokalemia, Hypocalcemia, Hypomagnesemia Patient Disposition: Still a Patient Condition: Stable Patient Language: Estonian Prescriptions: No Action meclizine 25 mg tablet 25 mg PO Q8H PRN (Reason: Dizziness) Rx Instructions: TAKE 1 TABLET BY MOUTH THREE TIMES DAILY NEEDED FOR DIZZINESS levothyroxine 150 mcg tablet 150 mcg PO DAILY Rx Instructions: Take 1 tablet by mouth once daily melatonin 10 mg Tablet 10 mg PO HS PRN (Reason: Insomnia) donepezil 5 mg tablet 10 mg PO DAILY losartan 50 mg tablet 50 mg PO QHS atorvastatin 20 mg tablet 20 mg PO QPM loperamide 2 mg Capsule 2 mg PO PRN PRN (Reason: Diarrhea) Qty: 14 0RF tramadol 50 mg Tablet 50 mg PO Q4H PRN (Reason: Pain Rated 6 Or Greater) Qty: 10 0RF acetaminophen 500 mg Tablet 500 mg PO Q6H PRN (Reason: Pain Rated 1-5) Qty: 20 0RF cholestyramine (with sugar) 4 gram Powder In Packet 1 ea PO DAILY@1000 Qty: 14 0RF guaifenesin [Mucus Relief ER] 600 mg Tablet Extended Release 12hr 600 mg PO Q12HR Qty: 10 0RF pantoprazole 40 mg tablet,delayed release (DR/EC) 40 mg PO BID 30 Days Qty: 180 3RF Follow-up/Referrals: Henry Hinojosa MD [Primary Care Provider] - Time of Disposition: 11:56
--- NOTE | 2024-12-09 11:52 | ECG_ITS ---
Test Date: 2024-12-09 12:02:41 Measurements Intervals [place] Rate: 55 P: 0 SC: 0 QRS: -53 QRSD: 129 T: 6 QT: 487 QTc: 469 Interpretive Statements SINUS BRADYCARDIA WITH VENTRICULAR PREMATURE COMPLEX RIGHT BUNDLE BRANCH BLOCK LEFT ANTERIOR FASCICULAR BLOCK BASELINE ARTIFACT- I, II, III, AVR, AVL, AVF, V1-V6 ABNORMAL ECG Compared to ECG 11/06/2024 23:42:30 LEFT ANTERIOR FASCICULAR BLOCK NOW PRESENT Electronically Signed On 12-09-2024 12:04:22 [employer] by Alphonso Nicole D.O.
[2024-12-09] MEDS: CALCIUM GLUC 2,000 MG/NS 100ML 2,000 MG/100 ML BAG 100 MG IVPB ×2 (12:09→22:34)
[2024-12-09] MEDS: POTASSIUM CHLORIDE INJ 40 MEQ in SODIUM CHLORIDE 0.9% IV 500 ML 130 MEQ IVPB ×2 (12:09→21:04)
[2024-12-09] MEDS: MAGNESIUM SULF 4 GM/WATER100ML 4 GM/100 ML BAG IVPB (12:15)
[2024-12-09] MEDS: SODIUM CHLORIDE 0.9% IV 1,000 ML 75 ML IV CONT (12:15)
[2024-12-09 12:30] LABS: Add Urine Microscopic? YES; Appearance Urine Cloudy (Clear); Bacteria Urine None Seen /hpf; Bilirubin Urine Negative (Negative); Blood Urine Non-Hemolyzed Trace (Negative); Color Urine Yellow (Yellow); Glucose Urine UA Negative (Negative); Ketones Urine Negative (Negative); Leukocyte Esterase Ur 2+ LEU/UL (Negative); Mucus Urine Present /lpf; Need Manual Microscopic Reviewed; Nitrate Urine Negative (Negative); Protein Urine 1+ mg/dL (Negative); Specific Grav Ur 1.014 (1.001-1.035); Squamous Epithelial Cell Urine Few /hpf (Few); Urobilinogen Urine 0.2 mg/dL (<2.0); WBC Urine 51-100 /hpf (0-3); pH Urine 5.5 (5.0-9.0)
--- NOTE | 2024-12-09 13:33 | PC.NURSE ---
pt reports having a BM. helped clean pt with new depends and applied phytoplex cream to pt coccyx where pressure sore was noted.
--- NOTE | 2024-12-09 13:45 | PM.IMHP ---
H&P: HPI History of Present Illness Date/Time: 12/09/24 13:45 Chief Complaint: Confusion and hand pain. Narrative: This is an 84-year-old female with hypertension, hypothyroidism, chronic kidney disease stage 3, chronic obstructive pulmonary disease, gastroesophageal reflux disease who presented to the emergency department for evaluation of of confusion and hand pain. At the time of my evaluation she is not much in the mood to talk and much of the following history is obtained via a review of her EMR. She was admitted to the hospital on 11/06/2024 with an incarcerated umbilical hernia status post repair with resection of 14 cm of small-bowel with anastomosis. She was discharged to rehab on 11/19/2024 but her stay was cut short as she was not making progress. Family members note that she has become increasingly confused and today the patient began complaining of pain in her hand and difficulties using her hands, more so on the left side. Currently she has no complaints aside from the fact that she wants to be left alone to sleep. When asked if she is eating okay she says ?I guess.? She denies nausea and vomiting but reports having diarrhea. She also denies fever, visual changes, focal weakness, difficulty swallowing, vomiting, chest pain, shortness of breath, and dysuria. In the ED: Vital signs were stable on arrival. Labs were significant for a WBC count of 9.0, hemoglobin 9.9, sodium 143, potassium 2.7, chloride 105, carbon dioxide 29, BUN 15, creatinine 1.49, calcium 5.0, magnesium 0.5, total protein 6.0, albumin 2.3. EKG showed sinus bradycardia with ventricular premature complex, right bundle-branch block, left anterior fascicular block, and a QTc of 469. She was given calcium gluconate 2000 mg IV, magnesium sulfate 4 g IV, and potassium chloride 40 mEq IV. She is being admitted in this setting for further treatment and evaluation. Review of Systems Review of Systems: 12 systems were reviewed and are negative except for as per HPI. [facility] Past Medical History Medical History (Updated 12/09/24 @ 23:22 by Paula Herron PA-C) Chronic kidney disease, stage 3 Deep venous thrombosis COPD mixed type Peripheral vascular disease Pancreatitis Right kidney mass Chronic diarrhea Umbilical hernia Anxiety and depression Gastroesophageal reflux disease Hypertension Small bowel obstruction Vitamin D deficiency Kidney stones Rheumatoid arthritis Chronic venous stasis dermatitis Closed fracture of greater tuberosity of humerus Fracture of neck of humerus Hypothyroidism (acquired) Depression Hyperglycemia Surgical History Surgical History (Updated 12/09/24 @ 13:49 by Paula Herron PA-C) History of cataract extraction with lens replacement (2003) History of evacuation of hematoma (2013) lateral thigh History of section X1 History of cholecystectomy Family History Family History Sibling Patient's sister is in good health Mother Diabetes mellitus, Onset Age: 41 Father Heart attack Cardiovascular disease Social History Social History (Updated 12/09/24 @ 23:17 by Paula Herron PA-C) Social History: Emergency contact: Karuna Stone, senior process control tech ([phone]). Code status: Do not resuscitate. Smoking packs per day: 2 Smoking cigarettes per day: 40.0 Years smoked: 50 Smoking pack-years: 100.00 Smoking status: Former smoker Second hand tobacco smoke exposure: No Alcohol intake: never Substance use: never Substance use type: does not use Do You Feel Safe in your Home?: Yes Lack of Transportation: No Lack of Food: Never True Current Housing: I Have Housing Concerned About Future Housing: No Difficulty Paying Gas/Electric Bills: No Difficulty Paying for Meds: No Currently Unemployed: No Education: Grade School Difficulty w/ Childcare or Family Care: No Living arrangements: with friend(s) Additional living arrangements comments: Lives with senior process control tech/friend, Karuna. Occupation/Education: retired Additional occupation/education comments: Retired [employer]. Spiritual care concerns: No Meds Home Medications and Allergies Home Medications ?Medication ?Instructions ?Recorded ?Confirmed ?Type pantoprazole 40 mg tablet,delayed 40 mg PO BID 30 days #180 tabs 04/12/23 12/09/24 Rx release levothyroxine 150 mcg tablet 150 mcg PO DAILY 08/31/23 12/09/24 History meclizine 25 mg tablet 25 mg PO Q8H PRN Dizziness 08/31/23 12/09/24 History melatonin 10 mg tablet 10 mg PO HS PRN Insomnia 08/31/23 12/09/24 History donepezil 5 mg tablet 10 mg PO DAILY 03/01/24 12/09/24 History atorvastatin 20 mg tablet 20 mg PO QPM 11/07/24 12/09/24 History losartan 50 mg tablet 50 mg PO QHS 11/07/24 12/09/24 History acetaminophen 500 mg tablet 500 mg PO Q6H PRN Pain Rated 1-5 11/19/24 12/09/24 Rx #20 tabs cholestyramine (with sugar) 4 gram 1 ea PO DAILY@1000 #14 ea 11/19/24 12/09/24 Rx powder for susp in a packet guaifenesin 600 mg tablet, 600 mg PO Q12HR #10 tabs 11/19/24 12/09/24 Rx extended release 12 hr (Mucus Relief ER) loperamide 2 mg capsule 2 mg PO PRN PRN Diarrhea #14 caps 11/19/24 12/09/24 Rx tramadol 50 mg tablet 50 mg PO Q4H PRN Pain Rated 6 Or 11/19/24 12/09/24 Rx Greater #10 tabs Allergies Allergy/AdvReac Type Severity Reaction Status Date / Time Penicillins Allergy Severe Hives Verified 12/09/24 10:28 Vital Signs Vital Signs - 24 hr 12/09/24 10:04 12/09/24 10:26 12/09/24 12:00 Temperature 98.4 F Pulse Rate 73 74 Respiratory Rate 17 22 H Blood Pressure 126/102 H 131/85 Pulse Oximetry 96 95 99 Oxygen Delivery Room Air Room Air Exam Narrative: General: Chronically ill-appearing elderly female in the semi-Perez position in bed. Weight: 59.1 kg. BMI: 24.6. HEENT: PERRL, EOMI. Sclera anicteric. Tacky mucous membranes. Neck: Supple. Respiratory: Lungs are clear to auscultation bilaterally. Cardiovascular: Regular rate and rhythm with S1-S2. Gastrointestinal: Abdomen is soft, nontender, and nondistended with positive bowel sounds. Skin: Warm and dry. She has breakdown on her posterior. Extremities: No cyanosis, clubbing, or edema. Radial and pedal pulses intact. Neurological: Alert. Cranial nerves 2-12 are grossly intact. Speech is clear. No obvious facial asymmetry. She refused to participate in the rest of the neurologic exam. Psychiatric: Not entirely interactive as she wishes to go to sleep. Somewhat cooperative. H&P: Results Labs Labs: Short CBC 12/09/24 Range/Units 10:55 WBC 9.0 (4.5-10.0) K/mm3 Hgb 9.9 L (12.0-15.0) g/dL Hct 29.9 L (37.0-47.0) % Plt Count 234 (150-375) k/mm3 BMP 12/09/24 10:55 Sodium 143 Potassium 2.7 L* Chloride 105 Carbon Dioxide 29 BUN 15 Creatinine 1.49 H Glucose 81 Calcium 5.0 L* Liver Function 12/09/24 Range/Units 10:55 Total Bilirubin 0.6 (0.2-1.3) mg/dL AST 27 (14-36) U/L ALT 25 (6-35) U/L Alkaline Phosphatase 88 (38-126) U/L Albumin 2.3 L (3.5-5.1) g/dL Urine 12/09/24 Range/Units 11:59 Urine Color Yellow (Yellow) Urine Appearance Cloudy H (Clear) Urine pH 5.5 (5.0-9.0) Ur Specific [place] 1.014 (1.001-1.035) Urine Protein 1+ H (Negative) mg/dL Urine Glucose (UA) Negative (Negative) mg/dL Assessment and Plan Assessment and plan (1) Hypocalcemia: Code(s): E83.51 - Hypocalcemia Status: Acute (2) Hypomagnesemia: Code(s): E83.42 - Hypomagnesemia Status: Acute (3) Hypokalemia: Code(s): E87.6 - Hypokalemia Status: Acute (4) Chronic kidney disease, stage 3: Code(s): N18.30 - Chronic kidney disease, stage 3 unspecified Status: Acute (5) Normocytic anemia: Code(s): D64.9 - Anemia, unspecified Status: Acute (6) Hypertension: Code(s): I10 - Essential (primary) hypertension Status: Acute (7) Gastroesophageal reflux disease: Code(s): K21.9 - Gastro-esophageal reflux disease without esophagitis Status: Acute Plan The patient presented to the emergency department from home with reports of confusion and bilateral hand pain as detailed in HPI. Labs, imaging, EKG, and all reports were personally reviewed. The patient is not entirely cooperative with interview and exam at the time my evaluation as she wishes to be left alone to sleep. She does state that she is feeling better and that the spasms in her hands are gone. She has several electrolyte abnormalities including low potassium, calcium (6.4 when corrected for albumin), and magnesium. Electrolytes will be made replete and will be monitored closely. Once numbers have improved, she will likely need to be started on oral calcium and vitamin D supplementation It is unclear why these counts are dropping but in part may be due to nutrition in addition to medication including PPI and cholestyramine, both which have been placed on hold. She is not on any diuretics that I can see. QTc is mildly prolonged and she is on telemetry. Hemoglobin is also dropping, possibly in some part due to nutrition and from recent hospitalization, and iron studies as well as B12 and folate have been ordered. Dietitian consulted for recommendations. Blood pressures have been stable. Her home medications will be reviewed and resumed as appropriate. Findings and treatment plan were discussed with the patient. Questions were solicited and answered to satisfaction. The patient's medical management will be taken over by the hospitalist team in a.m. Quality VTE Prophylaxis VTE prophylaxis: pharmacologic ordered Hospitalist [facility] Advance Care Plan I have confirmed that the patient's Advanced Care Plan is present, code status is documented, or surrogate decision maker is listed in patient medical record.: Yes Medication Reconciliation I have utilized all available resources to obtain, update and review the patients current medications (includes all prescriptions, OTC, herbals, cannabis, and nutritional supplements).: Yes
[2024-12-09 14:45] LABS: Anion Gap 7 mmol/L (4-12); Blood Urea Nitrogen 15 mg/dL (7-17); Calcium 5.8 mg/dL (8.4-10.2); Carbon Dioxide 31 mmol/L (22-30); Chloride 104 mmol/L (98-107); Creatine Kinase 93 U/L (30-135); Estimated CRCL calculation 20 ml/min; Estimated Glomerular Filt Rate 35; Glucose 66 mg/dL (65-110); Magnesium 1.1 mg/dL (1.6-2.3); Phosphorus 2.8 mg/dL (2.5-4.5); Potassium 2.6 mmol/L (3.4-5.0); Sodium 142 mmol/L (137-145)
[2024-12-09 14:53] LABS: Parathyroid Intact 122.9 pg/mL (14.5-75.2)
[2024-12-09 15:14] LABS: Vitamin D 25 Hydroxy < 12.8 ng/mL
--- NOTE | 2024-12-09 16:20 | PC.NURSE ---
This patient, Arielle Pittman, was admitted to Medical Room 245-. Patient/family oriented to hospital policies and general routines including ID bracelet, bed and alarms, visiting hours, pain management, procedures, bathroom and other care routines, personal items, smoking policy, room service/diet, and visiting hours. Information on how to activate the Rapid Response Team has been discussed. Patient/Family are encouraged to report perceived risks to care and to ask questions if they do not understand what they are told or what they should do.
--- NOTE | 2024-12-09 16:58 | PC.NURSE ---
RN completed patient's admission based off of previous admission. Patient is a poor historian. RN also completed medication reconciliation based on prior admission and pharmacy history.
[2024-12-09 17:17] LABS: Iron 42 ug/dL (37-170)
[2024-12-09 17:26] LABS: Percent Iron Saturation 29 % (20-50)
[2024-12-09 18:25] LABS: Folic Acid 5.6 ng/mL (2.76->20)
[2024-12-09 20:05] LABS: Anion Gap 8 mmol/L (4-12); Blood Urea Nitrogen 15 mg/dL (7-17); Calcium 5.6 mg/dL (8.4-10.2); Carbon Dioxide 28 mmol/L (22-30); Chloride 106 mmol/L (98-107); Estimated CRCL calculation 21 ml/min; Estimated Glomerular Filt Rate 37; Glucose 114 mg/dL (65-110); Magnesium 1.6 mg/dL (1.6-2.3); Potassium 2.5 mmol/L (3.4-5.0); Sodium 142 mmol/L (137-145)
[2024-12-09] MEDS: LOSARTAN POTASSIUM 50 MG TABLET PO (21:08)
[2024-12-09] MEDS: LOPERAMIDE HCL 2 MG CAPSULE PO (21:08)
[2024-12-09] MEDS: MELATONIN 5 MG TABLET 10 MG PO (21:08)
[2024-12-09] MEDS: MAGNESIUM SULF 1 GM/D5W 100 ML 1 GM/100 ML BAG IVPB (21:39)
[2024-12-09] MEDS: POTASSIUM CHLORIDE 20 MEQ ER TABLET 40 MEQ PO (21:44)
[2024-12-10] VITALS (11 sets, daily range): BP systolic 135–161; BP diastolic 55–65; PULSE 43–61; RESP 16–18; TEMP 36.3–36.7; O2SAT 96–100; BMI 24.6
[2024-12-10] MEDS: SODIUM CHLORIDE 0.9% IV 1,000 ML 75 ML IV CONT ×2 (01:03→15:51)
--- NOTE | 2024-12-10 01:43 | ECG_ITS ---
Test Date: 2024-12-10 01:43:48 Measurements Intervals [place] Rate: 47 P: 35 [place]: 153 QRS: -14 QRSD: 146 T: 12 QT: 542 QTc: 480 Interpretive Statements SINUS BRADYCARDIA RIGHT BUNDLE BRANCH BLOCK BASELINE ARTIFACT- I, III, AVR, AVL, V2 ABNORMAL ECG Compared to ECG 12/09/2024 12:02:41 HEART RATE HAS DECREASED Electronically Signed On 12-10-2024 07:51:[address] JUSTICE by Alphonso Nicole D.O.
[2024-12-10 02:47] LABS: Alanine Aminotransferase 24 U/L (6-35); Albumin Level 2.1 g/dL (3.5-5.1); Alkaline Phosphatase 82 U/L (38-126); Anion Gap 10 mmol/L (4-12); Aspartate Amino Transferase 28 U/L (14-36); Bilirubin,Total 0.4 mg/dL (0.2-1.3); Blood Urea Nitrogen 14 mg/dL (7-17); Calcium 5.7 mg/dL (8.4-10.2); Carbon Dioxide 24 mmol/L (22-30); Chloride 108 mmol/L (98-107); Estimated CRCL calculation 23 ml/min; Estimated Glomerular Filt Rate 42; Glucose 96 mg/dL (65-110); Magnesium 1.8 mg/dL (1.6-2.3); Phosphorus 2.8 mg/dL (2.5-4.5); Potassium 3.2 mmol/L (3.4-5.0); Sodium 142 mmol/L (137-145)
[2024-12-10] MEDS: POTASSIUM CHLORIDE 20 MEQ ER TABLET 40 MEQ PO ×2 (03:15→05:33)
[2024-12-10] MEDS: CALCIUM GLUC 2,000 MG/NS 100ML 2,000 MG/100 ML BAG 100 MG IVPB ×2 (03:16→12:29)
[2024-12-10] MEDS: MAGNESIUM SULF 2 GM/WATER 50ML 2 GM/50 ML BAG IVPB (03:16)
[2024-12-10] MEDS: LEVOTHYROXINE SODIUM 150 MCG TABLET PO (05:33)
[2024-12-10] MEDS: DONEPEZIL HCL 5 MG TABLET 10 MG PO (08:15)
[2024-12-10] MEDS: ERGOCALCIFEROL 50,000 UNITS CAPSULE 50000 UNITS PO (08:16)
[2024-12-10 08:17] LABS: Basophils Percent Auto 0.3 % (0.2-1.2); Eosinophils Percent Auto 0.6 % (0-4.4); Immature Granulocyte Absolute 0.03 K/mm3 (0.00-0.031); Immature Granulocyte Percent A 0.4 % (0-0.5); Lymphocytes Absolute Auto 1.11 K/mm3 (0.9-3.2); Lymphocytes Percent Auto 15.9 % (18.3-44.2); Mean Corpuscular HGB Conc 31.6 g/dl (32-36); Mean Corpuscular Hemoglobin 29.5 pg (26-34); Mean Corpuscular Volume 93.3 fl (80-100); Mean Platelet Volume 12.7 fl (7.4-10.4); Monocytes Absolute Auto 0.3 K/mm3 (0.1-0.6); Monocytes Percent Auto 4.3 % (2.6-8.5); Neutrophils Absolute Auto 5.5 K/mm3 (1.3-6.7); Neutrophils Percent Auto 78.5 % (45.5-73.1); Platelet Count Result 153 k/mm3 (150-375); Red Blood Count 2.24 M/mm3 (4.2-5.4)
[2024-12-10] MEDS: CALCIUM CARBONATE (OSCAL) 500 MG TABLET 1000 MG PO ×3 (08:17→20:11)
[2024-12-10] MEDS: ENOXAPARIN 30 MG/0.3 ML SYRINGE SUB-Q (08:18)
[2024-12-10 08:21] LABS: Hematocrit 20.9 % (37.0-47.0); Hemoglobin 6.6 g/dL (12.0-15.0)
[2024-12-10 08:50] LABS: Basophils Absolute Auto 0.1 K/mm3 (0.0-0.1); Basophils Percent Auto 0.5 % (0.2-1.2); Eosinophils Percent Auto 0.4 % (0-4.4); Hematocrit 32.7 % (37.0-47.0); Hemoglobin 10.1 g/dL (12.0-15.0); Immature Granulocyte Absolute 0.07 K/mm3 (0.00-0.031); Immature Granulocyte Percent A 0.7 % (0-0.5); Lymphocytes Absolute Auto 1.71 K/mm3 (0.9-3.2); Mean Corpuscular HGB Conc 30.9 g/dl (32-36); Mean Corpuscular Hemoglobin 29.4 pg (26-34); Mean Corpuscular Volume 95.1 fl (80-100); Mean Platelet Volume 12.4 fl (7.4-10.4); Monocytes Absolute Auto 0.6 K/mm3 (0.1-0.6); Monocytes Percent Auto 5.2 % (2.6-8.5); Neutrophils Absolute Auto 8.2 K/mm3 (1.3-6.7); Neutrophils Percent Auto 77.2 % (45.5-73.1); Platelet Count Result 220 k/mm3 (150-375); Red Blood Count 3.44 M/mm3 (4.2-5.4); Red Cell Distribution Width 18.1 % (11.5-14.5); White Blood Count 10.7 K/mm3 (4.5-10.0)
--- NOTE | 2024-12-10 10:26 | P.PNIM_ITS ---
Progress Note: A&P Assessment and Plan (1) Hypocalcemia: Code(s): E83.51 - Hypocalcemia Status: Acute Assessment and Plan: * Calcium improving. Last 6.7, additional Calcium gluconate 2,000 mg IVPB given. * Nephrology consulted, appreciate recommendations. * Monitor levels. (2) Hypomagnesemia: Code(s): E83.42 - Hypomagnesemia Status: Acute Assessment and Plan: * Magnesium 0.5 on admission. Current Magnesium 2.1. * Monitor magnesium levels. (3) Hypokalemia: Code(s): E87.6 - Hypokalemia Status: Acute Assessment and Plan: * Potassium improved from 2.5 to 3.8. * Monitor levels. (4) Chronic kidney disease, stage 3: Code(s): N18.30 - Chronic kidney disease, stage 3 unspecified Status: Acute Assessment and Plan: * BUN 12, Creatinine 1.13, and GFR 46. (5) Normocytic anemia: Code(s): D64.9 - Anemia, unspecified Status: Acute Assessment and Plan: * Current H&H 10.1/32.7. (6) Hypertension: Code(s): I10 - Essential (primary) hypertension Status: Acute Assessment and Plan: * Current blood pressure 145/61. * Losartan 50 mg PO QHS. (7) Vitamin D deficiency: Code(s): E55.9 - Vitamin D deficiency, unspecified Status: Acute Assessment and Plan: * 12/09/24 Vitamin D <12.8. * Ergocalciferol 50,000 PO weekly. Subjective Date/time seen: 12/10/24 10:26 Interval history: Patient sitting up in bed. Patient denies chest pain, palpitations, headache, dizziness, nausea, or vomiting. Patient reports that her hand spasms are improving. Patient reports that if she does not take Imodium she will get diarrhea. Review of Systems Review of Systems: All systems reviewed & are unremarkable except as noted in HPI and below Exam Const: General: comfortable and no acute distress Eyes: Sclera: sclerae normal Resp: Effort & Inspection: normal respiratory effort Auscultation: clear to auscultation bilaterally Cardio: Rate: regular rate Rhythm: regular rhythm GI: GI Palp: Yes Soft to palpation Auscultation: normal bowel sounds Skin: Other: Sacrum and buttock bilateral yeast maceration incontinence associated dermatitis. Neuro: Speech: normal speech Extrem: General: no pedal edema Psych: Mental Status: mental status grossly normal Affect: normal affect Objective Data Vital Signs Vital Signs: Vital Signs - 24 hr 12/09/24 12:00 12/09/24 12:32 12/09/24 13:00 Temperature Pulse Rate 74 56 L 55 L Respiratory Rate 22 H 18 16 Blood Pressure 131/85 130/71 117/58 L Pulse Oximetry 99 99 100 Oxygen Delivery 12/09/24 13:30 12/09/24 13:52 12/09/24 15:30 Temperature 97.4 F L Pulse Rate 85 62 Respiratory Rate 23 H 21 H Blood Pressure 141/74 H 132/66 Pulse Oximetry 97 100 Oxygen Delivery 12/09/24 16:00 12/09/24 19:57 12/09/24 20:00 Temperature 97.8 F 97.7 F 97.7 F Pulse Rate 60 76 76 Respiratory Rate 14 20 20 Blood Pressure 140/61 129/60 129/60 Pulse Oximetry 98 99 99 Oxygen Delivery 12/09/24 20:00 12/09/24 20:00 12/10/24 00:00 Temperature 97.7 F Pulse Rate 64 56 L Respiratory Rate 18 Blood Pressure 135/55 L Pulse Oximetry 100 Oxygen Delivery Room Air 12/10/24 00:00 12/10/24 03:21 12/10/24 03:40 Temperature 97.7 F 97.7 F Pulse Rate 46 L 58 L 58 L Respiratory Rate 18 18 Blood Pressure 140/55 L 140/55 L Pulse Oximetry 100 100 Oxygen Delivery 12/10/24 04:00 12/10/24 08:00 12/10/24 08:15 Temperature 98.1 F Pulse Rate 43 L 49 L Respiratory Rate 16 Blood Pressure 151/65 H Pulse Oximetry 97 Oxygen Delivery Room Air 12/10/24 08:15 Temperature Pulse Rate 53 L Respiratory Rate Blood Pressure Pulse Oximetry Oxygen Delivery Intake/Output Intake/Output: Intake & Output 12/07/24 12/08/24 12/09/24 12/10/24 23:59 23:59 23:59 23:59 Intake Total 580.0 1690 Output Total 150 Balance 430.0 1690 Meds/Results Medications: Active Medications Generic Name Dose Route Start Last Admin Trade Name Freq PRN Reason Stop Dose Admin Acetaminophen 650 mg 12/09/24 11:57 Acetaminophen 325 Mg Tablet PO Q4H PRN Mild Pain (1-3) or Fever Atorvastatin Calcium 20 mg 12/10/24 18:00 Atorvastatin 20 Mg Tablet PO QPM SALMA Calcium Carbonate 1,000 mg 12/10/24 10:00 12/10/24 08:17 Calcium Carbonate (Oscal) 500 Mg Tablet PO 1,000 mg 1000,1500,2100 SALMA Administration Donepezil HCl 10 mg 12/10/24 09:00 12/10/24 08:15 Donepezil Hcl 5 Mg Tablet PO 10 mg DAILY SALMA Administration Enoxaparin Sodium 30 mg 12/10/24 09:00 12/10/24 08:18 Enoxaparin 30 Mg/0.3 Ml Syringe SUB-Q 30 mg DAILY SALMA Administration Ergocalciferol 50,000 units 12/10/24 09:00 12/10/24 08:16 Ergocalciferol 50,000 Units Capsule PO 50,000 units WEEKLY SALMA Administration Sodium Chloride 1,000 mls @ 75 mls/hr 12/09/24 12:00 12/10/24 01:03 Normal Saline Iv IV CONT 75 mls/hr .[id number] SALMA Administration Levothyroxine Sodium 150 mcg 12/10/24 06:30 12/10/24 05:33 Levothyroxine Sodium 150 Mcg Tablet PO 150 mcg DAILY@0630 SALMA Administration Loperamide HCl 2 mg 12/09/24 20:38 12/09/24 21:08 Loperamide Hcl 2 Mg Capsule PO 2 mg PRN PRN Administration Diarrhea Losartan Potassium 50 mg 12/09/24 21:00 12/09/24 21:08 Losartan Potassium 50 Mg Tablet PO 50 mg QHS SALMA Administration Melatonin 10 mg 12/09/24 20:38 12/09/24 21:08 Melatonin 5 Mg Tablet PO 10 mg HS PRN Administration Insomnia Ondansetron HCl 4 mg 12/09/24 11:57 Ondansetron Inj 4 Mg/2 Ml Vial IV PUSH Q4H PRN Nausea Tramadol HCl 50 mg 12/09/24 20:38 Tramadol Hcl (*Crx) 50 Mg Tablet PO Q4H PRN Pain Rated 6 Or Greater Labs Labs: Laboratory Results - last 24 hr 02/03/25 02/03/25 02/03/25 10:55 11:59 14:23 WBC 9.0 RBC 3.35 L Hgb 9.9 L Hct 29.9 L MCV 89.3 MCH 29.6 MCHC 33.1 RDW 17.2 H Plt Count 234 MPV 12.4 H Immature Gran % (Auto) 0.4 Neut % (Auto) 82.2 H Lymph % (Auto) 11.6 L [place] % (Auto) 5.3 Eos % (Auto) 0.1 Baso % (Auto) 0.4 Lymph # (Auto) 1.05 [place] # (Auto) 0.5 Eos # (Auto) 0.0 Baso # (Auto) 0.0 Abs Immat Gran (auto) 0.04 H Absolute Neuts (auto) 7.4 H Absolute Nucleated RBC 0.000 Nucleated RBC % 0.0 PT 14.8 H INR 1.1 Sodium 143 142 Potassium 2.7 L* 2.6 L* Chloride 105 104 Carbon Dioxide 29 31 H Anion Gap 9 7 BUN 15 15 Creatinine 1.49 H 1.42 H Estim Creat Clear Calc 19 20 Estimated GFR 33 L 35 L Glucose 81 66 Calcium 5.0 L* 5.8 L* Phosphorus 2.8 Magnesium 0.5 L 1.1 L Iron 42 TIBC 146 L % Saturation 29 Ferritin 252.00 Total Bilirubin 0.6 AST 27 ALT 25 Alkaline Phosphatase 88 Total Creatine Kinase 93 Total Protein 6.0 L Albumin 2.3 L Prealbumin 9.0 L Vitamin B12 782.0 Vitamin D 25-Hydroxy < 12.8 Folate 5.6 TSH (Reflex) 2.310 PTH Intact 122.9 H Random Cortisol 30.30 Urine Color Yellow Urine Appearance Cloudy H Urine pH 5.5 Ur Specific Delight 1.014 Urine Protein 1+ H Urine Glucose (UA) Negative Urine Ketones Negative Ur Blood (Man) Non-hemolyzed trace H Urine Nitrate Negative Urine Bilirubin Negative Urine Urobilinogen 0.2 Add Ur Microanalysis Reviewed Leukocyte Esterase Rfl 2+ H Urine RBC 3-5 H Urine WBC 51-100 H Ur Squamous Epith Cells Few Urine Bacteria None seen Urine Casts 11-20 Hyaline Casts 3-4 H Urine Mucus Present 12/09/24 12/10/24 12/10/24 19:42 02:26 07:58 WBC 7.0 RBC 2.24 L Hgb 6.6 L* D Hct 20.9 L* MCV 93.3 MCH 29.5 MCHC 31.6 L RDW 18.0 H Plt Count 153 MPV 12.7 H Immature Gran % (Auto) 0.4 Neut % (Auto) 78.5 H Lymph % (Auto) 15.9 L [place] % (Auto) 4.3 Eos % (Auto) 0.6 Baso % (Auto) 0.3 Lymph # (Auto) 1.11 [place] # (Auto) 0.3 Eos # (Auto) 0.0 Baso # (Auto) 0.0 Abs Immat Gran (auto) 0.03 Absolute Neuts (auto) 5.5 Absolute Nucleated RBC 0.000 Nucleated RBC % 0.0 PT INR Sodium 142 142 Potassium 2.5 L* 3.2 L Chloride 106 108 H Carbon Dioxide 28 24 Anion Gap 8 10 BUN 15 14 Creatinine 1.35 H 1.21 H Estim Creat Clear Calc 21 23 Estimated GFR 37 L 42 L Glucose 114 H 96 Calcium 5.6 L* 5.7 L* Phosphorus 2.8 Magnesium 1.6 1.8 Iron TIBC % Saturation Ferritin Total Bilirubin 0.4 AST 28 ALT 24 Alkaline Phosphatase 82 Total Creatine Kinase Total Protein 5.0 L Albumin 2.1 L Prealbumin Vitamin B12 Vitamin D 25-Hydroxy Folate TSH (Reflex) PTH Intact Random Cortisol Urine Color Urine Appearance Urine pH Ur Specific Delight Urine Protein Urine Glucose (UA) Urine Ketones Ur Blood (Man) Urine Nitrate Urine Bilirubin Urine Urobilinogen Add Ur Microanalysis Leukocyte Esterase Rfl Urine RBC Urine WBC Ur Squamous Epith Cells Urine Bacteria Urine Casts Hyaline Casts Urine Mucus 12/10/24 08:40 WBC 10.7 H RBC 3.44 L Hgb 10.1 L D Hct 32.7 L MCV 95.1 MCH 29.4 MCHC 30.9 L RDW 18.1 H Plt Count 220 MPV 12.4 H Immature Gran % (Auto) 0.7 H Neut % (Auto) 77.2 H Lymph % (Auto) 16.0 L [place] % (Auto) 5.2 Eos % (Auto) 0.4 Baso % (Auto) 0.5 Lymph # (Auto) 1.71 [place] # (Auto) 0.6 Eos # (Auto) 0.0 Baso # (Auto) 0.1 Abs Immat Gran (auto) 0.07 H Absolute Neuts (auto) 8.2 H Absolute Nucleated RBC 0.000 Nucleated RBC % 0.0 PT INR Sodium Potassium Chloride Carbon Dioxide Anion Gap BUN Creatinine Estim Creat Clear Calc Estimated GFR Glucose Calcium Phosphorus Magnesium Iron TIBC % Saturation Ferritin Total Bilirubin AST ALT Alkaline Phosphatase Total Creatine Kinase Total Protein Albumin Prealbumin Vitamin B12 Vitamin D 25-Hydroxy Folate TSH (Reflex) PTH Intact Random Cortisol Urine Color Urine Appearance Urine pH Ur Specific Delight Urine Protein Urine Glucose (UA) Urine Ketones Ur Blood (Man) Urine Nitrate Urine Bilirubin Urine Urobilinogen Add Ur Microanalysis Leukocyte Esterase Rfl Urine RBC Urine WBC Ur Squamous Epith Cells Urine Bacteria Urine Casts Hyaline Casts Urine Mucus Quality VTE Prophylaxis VTE prophylaxis: pharmacologic ordered
--- NOTE | 2024-12-10 10:47 | P.CONNP_ITS ---
Assessment and Plan Assessment and plan (1) Hypocalcemia: Code(s): E83.51 - Hypocalcemia Status: Acute Assessment and Plan: * slow and steady improvement * s/p IV calcium gluconate * started on oral calcium as well as Vitamin D supplementation * calcium better when corrected for low albumin... * suspect deficiency due to poor oral intake coupled with Vitamin D deficiency * continue to follow calcium levels (2) Hypomagnesemia: Code(s): E83.42 - Hypomagnesemia Status: Resolved Assessment and Plan: * suspect also related to poor oral intake * sp IV replacement * on oral supplementation as well * follow trend (3) Hypokalemia: Code(s): E87.6 - Hypokalemia Status: Resolved Assessment and Plan: * related to low magnesium and calcium * improvement also noted with replacement and correction of #1 and #2 * replete as needed * follow trend (4) Chronic kidney disease, stage 3: Code(s): N18.30 - Chronic kidney disease, stage 3 unspecified Status: Chronic Assessment and Plan: * by reported history * although improvement in creatinine noted with IVFs... * however, renal function normal by labs on last hospital discharge * has improved with IVFs since admission * suspect normal creatinine is likely a manifestation of bed bound status/immobility and accompanying reduction in muscle mass with contributions from reduced/poor oral intake * follow trend of repeat labs and UOP (5) Vitamin D deficiency: Code(s): E55.9 - Vitamin D deficiency, unspecified Status: Chronic Assessment and Plan: * an noted by admission testing: * Vitamin D <12.8 (on 12/09/24) * started on ergocalciferol 50,000 PO weekly (6) Hypertension: Code(s): I10 - Essential (primary) hypertension Status: Chronic Assessment and Plan: * reasonable control at this time * continue home medications * follow trend of hemodynamics I will continue to follow the patient with you while she remains hospitalized and make further recommendations as deemed necessary. Thank you for allowing me to participate in the care of this patient. L History of Present Illness Reason for Consult Consult date: 12/10/24 Reason for consult: hypokalemia and Other (hypocalcemia and hypomagnesemia) Chief Complaint Chief complaint: Hypokalemia, Hypomagnesemia, Hypocalcemia History of Present Illness Narrative: Most of the information I have obtained is from review of the electronic medical record as well as discussion with the physician/nurses involved in the patient's care as is difficult to get a full and complete history from the patient due to lack of cooperation. The patient is an 84-year-old female with a past medical history as outlined below who presented to [facility] Emergency Room with complaints of confusion and bilateral hand pain. According to family members, the patient has become increasingly confused over the past few days and on the day of admission, was noted to have bilateral pain in her hands in association with difficulty using her hands for simple activities wall, more so on the left side. There has been no history of nausea and vomiting but apparently some reported issues with diarrhea and is not entirely clear if she has been eating and drinking very well at home. No reported history of fevers, chills, dysphagia, chest pain, shortness of breath, or dysuria. It should be noted the patient was just recently discharged from [facility] in mid November of this year after she was hospitalized for an incarcerated umbilical hernia that required repair and resection of approximately 14 cm of small bowel with subsequent anastomosis. She was discharged to rehab but apparently her stay there was cut short as she was not making very much progress possibly due to lack of motivation. Workup and evaluation emergency room demonstrated the patient to be hemodynamically stable and afebrile. Routine blood tests were done which was notable for a white blood cell count 9.0, hemoglobin 9.9, sodium 143, potassium 2.7, CO2 of 29, creatinine 1.49, calcium 5.0, magnesium 0.5, and albumin of 2.3. EKG showed sinus bradycardia with premature ventricular complexes, right bundle jason block, and a left anterior fascicular block. Given her electrolyte abnormalities, she was given calcium gluconate 2 g IV x1, magnesium 4 g IV x1, and potassium 40 mEq IV x1. Given these electrolyte abnormalities and her constellation of symptoms as mentioned, she was admitted to the hospital for further evaluation and therapy. Since her admission, her electrolytes appear to be slowly improving with aggressive IV and oral repletion. She clinically appears to be feeling somewhat better although she is still somewhat uncooperative with questioning and exam as she wants to be left alone to be allowed to sleep. Renal consultation was requested due to her electrolyte abnormalities with regard to her hypocalcemia, hypomagnesemia and hypokalemia. From review her records, at least on her previous hospitalization, all these electrolytes were relatively stable although I am unclear if she was receiving IV supplementation at that time as well. However, as noted by the trend of her hospitalization last month, her albumin was slowly but surely dropping on each lab draw arguing that her oral and nutritional intake was probably suboptimal prior to discharge and presumably even after discharge in rehab and at home. the fact that her electrolytes are improving just with IV repletion make the argument that her total body store levels of calcium, magnesium, and potassium were probably quite low on presentation to the emergency room. Currently, at the time my evaluation, she does not appear to be in any acute distress. Review of Systems 2 Review of Systems: As per HPI. [facility] Past Medical History Medical History (Updated 12/13/24 @ 11:33 by SASHA Morelos) Hyperkalemia Hypophosphatemia Pneumonia Abnormal breath sounds Chronic kidney disease, stage 3 Deep venous thrombosis Peripheral vascular disease Pancreatitis Right kidney mass Chronic diarrhea Umbilical hernia Anxiety and depression COPD mixed type Gastroesophageal reflux disease Hypertension Small bowel obstruction Vitamin D deficiency Kidney stones Rheumatoid arthritis Chronic venous stasis dermatitis Closed fracture of greater tuberosity of humerus Fracture of neck of humerus Hypothyroidism (acquired) Depression Hyperglycemia Surgical History Surgical History (Updated 12/09/24 @ 13:49 by Paula Herron PA-C) History of cataract extraction with lens replacement (2003) History of evacuation of hematoma (2013) lateral thigh History of section X1 History of cholecystectomy Family History Family History Sibling Patient's sister is in good health Mother Diabetes mellitus, Onset Age: 41 Father Heart attack Cardiovascular disease Social History Social History (Updated 12/09/24 @ 23:17 by Paula Herron PA-C) Social History: Emergency contact: Karuna Tellocarol, preconstruction manager ([phone]). Code status: Do not resuscitate. Smoking packs per day: 2 Smoking cigarettes per day: 40.0 Years smoked: 50 Smoking pack-years: 100.00 Smoking status: Former smoker Second hand tobacco smoke exposure: No Alcohol intake: never Substance use: never Substance use type: does not use Do You Feel Safe in your Home?: Yes Lack of Transportation: No Lack of Food: Never True Current Housing: I Have Housing Concerned About Future Housing: No Difficulty Paying Gas/Electric Bills: No Difficulty Paying for Meds: No Currently Unemployed: No Education: Grade School Difficulty w/ Childcare or Family Care: No Living arrangements: with friend(s) Additional living arrangements comments: Lives with preconstruction manager/friend, Karuna. 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 Spiritual care concerns: No Meds Home Medications and Allergies Home Medications ?Medication ?Instructions ?Recorded ?Confirmed ?Type pantoprazole 40 mg tablet,delayed 40 mg PO BID 30 days #180 tabs 04/12/23 12/09/24 Rx release levothyroxine 150 mcg tablet 150 mcg PO DAILY 08/31/23 12/09/24 History meclizine 25 mg tablet 25 mg PO Q8H PRN Dizziness 08/31/23 12/09/24 History melatonin 10 mg tablet 10 mg PO HS PRN Insomnia 08/31/23 12/09/24 History donepezil 5 mg tablet 10 mg PO DAILY 03/01/24 12/09/24 History atorvastatin 20 mg tablet 20 mg PO QPM 11/07/24 12/09/24 History losartan 50 mg tablet 50 mg PO QHS 11/07/24 12/09/24 History acetaminophen 500 mg tablet 500 mg PO Q6H PRN Pain Rated 1-5 11/19/24 12/09/24 Rx #20 tabs cholestyramine (with sugar) 4 gram 1 ea PO DAILY@1000 #14 ea 11/19/24 12/09/24 Rx powder for susp in a packet loperamide 2 mg capsule 2 mg PO PRN PRN Diarrhea #14 caps 11/19/24 12/09/24 Rx tramadol 50 mg tablet 50 mg PO Q4H PRN Pain Rated 6 Or 11/19/24 12/09/24 Rx Greater #10 tabs calcium carbonate (Oyster Shell 1,000 mg (2 x 500 mg calcium 12/15/24 Rx Calcium 500) (1,250 mg)) PO 1000,1400,1800 #30 tabs doxycycline hyclate 100 mg tablet 100 mg PO Q12HR #5 tabs 12/15/24 Rx ergocalciferol (vitamin D2) 1,250 1,250 mcg PO WEEKLY #7 caps 12/15/24 Rx mcg (50,000 unit) capsule (Vitamin D2) guaifenesin 600 mg tablet, 600 mg PO Q12HR #30 tabs 12/15/24 Rx extended release 12 hr (Mucus Relief ER) magnesium oxide 400 mg (241.3 mg 200 mg (1/2 x 400 mg (241.3 mg 12/15/24 Rx magnesium) tablet magnesium)) PO DAILY #10 tabs Allergies Allergy/AdvReac Type Severity Reaction Status Date / Time Penicillins Allergy Severe Hives Verified 12/09/24 10:28 Vital Signs Vital Signs Temp Pulse Resp BP Pulse Ox O2 Del Method 12/10/24 10:33 97.5 F L 58 L 16 145/61 H 100 12/10/24 08:15 53 L 12/10/24 08:15 Room Air 12/10/24 08:00 98.1 F 49 L 16 151/65 H 97 12/10/24 04:00 43 L 12/10/24 03:40 97.7 F 58 L 18 140/55 L 100 12/10/24 03:21 97.7 F 58 L 18 140/55 L 100 12/10/24 00:00 46 L 12/10/24 00:00 97.7 F 56 L 18 135/55 L 100 12/09/24 20:00 64 12/09/24 20:00 Room Air 12/09/24 20:00 97.7 F 76 20 129/60 99 12/09/24 19:57 97.7 F 76 20 129/60 99 Exam 2 Narrative: GENERAL APPEARANCE: chronically ill-appearing Cacuasian female in no acute distress HEENT: normocephalic, atraumatic, normal conjunctiva and sclera, nares patient NECK: no lymphadenopathy, thyromegaly, or JVD MOUTH: normal lips, teeth, and gums CARDIOVASCULAR: RRR, normal S1 and S2, no rub RESPIRATORY: clear to auscultation bilaterally ABDOMEN: soft, nontender, nondistended, positive bowel sounds present EXTREMITIES: no evidence of cyanosis, clubbing, or edema NEUROLOGICAL: sleepy but no focal deficits noted Results Lab Results 12/12/24 04:48 12/15/24 04:57 Lab results: Most recent lab results Calcium 6.7 mg/dL (8.4-10.2) L 12/10/24 11:28 Phosphorus 2.8 mg/dL (2.5-4.5) 12/10/24 02:26 Magnesium 2.1 mg/dL (1.6-2.3) 12/10/24 11:28
[2024-12-10] MEDS: LOPERAMIDE HCL 2 MG CAPSULE PO ×3 (11:31→20:11)
--- NOTE | 2024-12-10 11:47 | PCPTNOTE ---
Attempted PT evaluation this date. Pt declined stating that she just wanted to sleep . Will continue to attempt.
[2024-12-10 12:05] LABS: Alanine Aminotransferase 27 U/L (6-35); Albumin Level 2.3 g/dL (3.5-5.1); Alkaline Phosphatase 91 U/L (38-126); Anion Gap 9 mmol/L (4-12); Aspartate Amino Transferase 35 U/L (14-36); Bilirubin,Total 0.4 mg/dL (0.2-1.3); Blood Urea Nitrogen 12 mg/dL (7-17); Calcium 6.7 mg/dL (8.4-10.2); Carbon Dioxide 22 mmol/L (22-30); Chloride 111 mmol/L (98-107); Estimated CRCL calculation 25 ml/min; Estimated Glomerular Filt Rate 46; Glucose 117 mg/dL (65-110); Magnesium 2.1 mg/dL (1.6-2.3); Potassium 3.8 mmol/L (3.4-5.0); Sodium 142 mmol/L (137-145)
[2024-12-10] MEDS: COLLAGENASE OINT 30 GM TUBE 1 APPLIC TOPICAL (12:29)
[2024-12-10] MEDS: ATORVASTATIN 20 MG TABLET PO (17:37)
[2024-12-10] MEDS: LOSARTAN POTASSIUM 50 MG TABLET PO (20:11)
[2024-12-10] MEDS: MELATONIN 5 MG TABLET 10 MG PO (20:11)
[2024-12-11] VITALS (8 sets, daily range): BP systolic 143–153; BP diastolic 59–68; PULSE 49–85; RESP 14–18; TEMP 36.4–36.8; O2SAT 93–100
[2024-12-11] MEDS: SODIUM CHLORIDE 0.9% IV 1,000 ML 75 ML IV CONT (04:46)
[2024-12-11] MEDS: LOPERAMIDE HCL 2 MG CAPSULE PO ×4 (06:08→21:56)
[2024-12-11] MEDS: LEVOTHYROXINE SODIUM 150 MCG TABLET PO (06:08)
[2024-12-11] MEDS: CALCIUM CARBONATE (OSCAL) 500 MG TABLET 1000 MG PO ×3 (07:58→20:20)
[2024-12-11] MEDS: DONEPEZIL HCL 5 MG TABLET 10 MG PO (07:58)
[2024-12-11] MEDS: COLLAGENASE OINT 30 GM TUBE 1 APPLIC TOPICAL (07:59)
[2024-12-11] MEDS: ENOXAPARIN 30 MG/0.3 ML SYRINGE SUB-Q (07:59)
[2024-12-11 08:06] LABS: Alanine Aminotransferase 24 U/L (6-35); Alkaline Phosphatase 80 U/L (38-126); Anion Gap 2 mmol/L (4-12); Aspartate Amino Transferase 25 U/L (14-36); Bilirubin,Total 0.3 mg/dL (0.2-1.3); Blood Urea Nitrogen 15 mg/dL (7-17); Calcium 7.2 mg/dL (8.4-10.2); Carbon Dioxide 28 mmol/L (22-30); Chloride 109 mmol/L (98-107); Estimated CRCL calculation 29 ml/min; Estimated Glomerular Filt Rate 56; Glucose 63 mg/dL (65-110); Magnesium 1.7 mg/dL (1.6-2.3); Phosphorus 1.9 mg/dL (2.5-4.5); Potassium 4.4 mmol/L (3.4-5.0); Sodium 139 mmol/L (137-145)
--- NOTE | 2024-12-11 10:27 | P.PNIM_ITS ---
Progress Note: A&P Assessment and Plan (1) Hypocalcemia: Code(s): E83.51 - Hypocalcemia Status: Acute Assessment and Plan: * Calcium improving. Last 6.7, additional Calcium gluconate 2,000 mg IVPB given. * Nephrology consulted, appreciate recommendations. * Monitor levels. 12/11/24: * Calcium today is 7.2 * With correction for albumin, Corrected calcium is 8.4. * No additional is given. (2) Hypomagnesemia: Code(s): E83.42 - Hypomagnesemia Status: Resolved Assessment and Plan: * Magnesium 0.5 on admission. Current Magnesium 2.1. * Monitor magnesium levels. 12/11/24: * 1.7. * Recheck in AM. (3) Abnormal breath sounds: Code(s): R06.89 - Other abnormalities of breathing Status: Acute Assessment and Plan: 12/11/24: * Pt's breath sounds today are concerning for possible fluid overload. * VSS * IVF discontinued as her electrolyte abnormalities have improved. * Chest xray ordered. (4) Hypokalemia: Code(s): E87.6 - Hypokalemia Status: Resolved Assessment and Plan: * Potassium improved from 2.5 to 3.8. * Monitor levels. 12/11/24: * Resolved (5) Chronic kidney disease, stage 3: Code(s): N18.30 - Chronic kidney disease, stage 3 unspecified Status: Chronic Assessment and Plan: * BUN 12, Creatinine 1.13, and GFR 46. 12/11/24: * Resolved/Stable at 0.95/15 * IVF discontinued at this time out of concern for pulmonary status. * Monitor labs and VS. (6) Normocytic anemia: Code(s): D64.9 - Anemia, unspecified Status: Chronic Assessment and Plan: * Current H&H 10.1/32.7. 12/11/24: * Resolved. (7) Hypertension: Code(s): I10 - Essential (primary) hypertension Status: Chronic Assessment and Plan: * Current blood pressure 145/61. * Losartan 50 mg PO QHS. 12/11/24: * Stable (8) Vitamin D deficiency: Code(s): E55.9 - Vitamin D deficiency, unspecified Status: Chronic Assessment and Plan: * 2/3/25 Vitamin D <12.8. * Ergocalciferol 50,000 PO weekly. Time Spent With Patient Time with patient: 15 - 25 minutes Subjective Date/time seen: 12/11/24 10:00 Interval history: THis pt was examined at the bedside today and states she is not feeling well overall. She has improvement in her electrolytes at this point. Her lung sounds are coarse crackles/rales. She continues to receive IVF at 75 ml/hr. CXR ordered, discontinue fluids at this point. Review of Systems Review of Systems: All systems reviewed & are unremarkable except as noted in HPI and below Exam Narrative: General: Chronically ill-appearing elderly female in the semi-Perez position in bed. HEENT: PERRL, EOMI. Sclera anicteric. Neck: Supple. No JVD, FROM in a supple manner. Respiratory: Lungs with coarse crackles/rales bilaterally. Cardiovascular: Regular rate and rhythm with S1-S2. Gastrointestinal: Abdomen is soft, nontender, and nondistended with positive bowel sounds. Skin: Warm and dry. She has breakdown on her posterior. Extremities: No cyanosis, clubbing, or edema. Radial and pedal pulses intact. Neurological: Alert. No focal deficits noted Psychiatric: Cooperative today. Forgetful. Objective Data Vital Signs Vital Signs: Vital Signs - 24 hr 12/10/24 11:53 12/10/24 12:00 12/10/24 16:00 Temperature 97.5 F L Pulse Rate 58 L 49 L 61 Respiratory Rate 16 Blood Pressure 145/61 H Pulse Oximetry 100 Oxygen Delivery 12/10/24 16:00 12/10/24 20:00 12/10/24 20:00 Temperature 97.8 F 97.7 F Pulse Rate 58 L 50 L Respiratory Rate 16 18 Blood Pressure 161/61 H 149/57 H Pulse Oximetry 100 97 Oxygen Delivery Room Air 12/10/24 20:00 12/10/24 23:34 12/11/24 00:00 Temperature 97.4 F L Pulse Rate 44 L 54 L 49 L Respiratory Rate 18 Blood Pressure 137/64 Pulse Oximetry 96 Oxygen Delivery 12/11/24 03:46 12/11/24 04:00 12/11/24 08:00 Temperature 98.3 F 98.1 F Pulse Rate 59 L 50 L 65 Respiratory Rate 18 14 Blood Pressure 147/63 H 143/59 H Pulse Oximetry 93 100 Oxygen Delivery Intake/Output Intake/Output: Intake & Output 12/08/24 12/09/24 12/10/24 12/11/24 23:59 23:59 23:59 23:59 Intake Total 580.0 2930 1698.8 Output Total 150 300 Balance 430.0 2930 1398.8 Meds/Results Medications: Active Medications Generic Name Dose Route Start Last Admin Trade Name Freq PRN Reason Stop Dose Admin Acetaminophen 650 mg 12/09/24 11:57 Acetaminophen 325 Mg Tablet PO Q4H PRN Mild Pain (1-3) or Fever Atorvastatin Calcium 20 mg 12/10/24 18:00 12/10/24 17:37 Atorvastatin 20 Mg Tablet PO 20 mg QPM SALMA Administration Calcium Carbonate 1,000 mg 12/10/24 10:00 12/11/24 07:58 Calcium Carbonate (Oscal) 500 Mg Tablet PO 1,000 mg 1000,1500,2100 SALMA Administration Collagenase 1 applic 12/10/24 09:00 12/11/24 07:59 Collagenase Oint 30 Gm Tube TOPICAL 1 applic QAM SALMA Administration Donepezil HCl 10 mg 12/10/24 09:00 12/11/24 07:58 Donepezil Hcl 5 Mg Tablet PO 10 mg DAILY SALMA Administration Enoxaparin Sodium 30 mg 12/10/24 09:00 12/11/24 07:59 Enoxaparin 30 Mg/0.3 Ml Syringe SUB-Q 30 mg DAILY SALMA Administration Ergocalciferol 50,000 units 12/10/24 09:00 12/10/24 08:16 Ergocalciferol 50,000 Units Capsule PO 50,000 units WEEKLY SALMA Administration Sodium Chloride 1,000 mls @ 75 mls/hr 12/09/24 12:00 12/11/24 04:46 Normal Saline Iv IV CONT 75 mls/hr .[id number] SALMA Administration Levothyroxine Sodium 150 mcg 12/10/24 06:30 12/11/24 06:08 Levothyroxine Sodium 150 Mcg Tablet PO 150 mcg DAILY@0630 SALMA Administration Loperamide HCl 2 mg 12/09/24 20:38 12/11/24 06:08 Loperamide Hcl 2 Mg Capsule PO 2 mg PRN PRN Administration Diarrhea Losartan Potassium 50 mg 12/09/24 21:00 12/10/24 20:11 Losartan Potassium 50 Mg Tablet PO 50 mg QHS SALMA Administration Melatonin 10 mg 12/09/24 20:38 12/10/24 20:11 Melatonin 5 Mg Tablet PO 10 mg HS PRN Administration Insomnia Ondansetron HCl 4 mg 12/09/24 11:57 Ondansetron Inj 4 Mg/2 Ml Vial IV PUSH Q4H PRN Nausea Tramadol HCl 50 mg 12/09/24 20:38 Tramadol Hcl (*Crx) 50 Mg Tablet PO Q4H PRN Pain Rated 6 Or Greater Labs Labs: Laboratory Results - last 24 hr 12/10/24 12/11/24 11:28 07:29 Sodium 142 139 Potassium 3.8 4.4 Chloride 111 H 109 H Carbon Dioxide 22 28 Anion Gap 9 2 L BUN 12 15 Creatinine 1.13 H 0.95 Estim Creat Clear Calc 25 29 Estimated GFR 46 L 56 L Glucose 117 H 63 L Calcium 6.7 L 7.2 L Phosphorus 1.9 L Magnesium 2.1 1.7 Total Bilirubin 0.4 0.3 AST 35 25 ALT 27 24 Alkaline Phosphatase 91 80 Total Protein 6.0 L 5.0 L Albumin 2.3 L 2.0 L Quality VTE Prophylaxis VTE prophylaxis: pharmacologic ordered
[2024-12-11] MEDS: POTASSIUM/PHOSPHORUS/SODIUM 1.5 GM PACKET 2 PACKET PO (12:16)
--- NOTE | 2024-12-11 14:20 | P.PNNP_ITS ---
Progress Note: A&P Assessment and Plan (1) Hypocalcemia: Code(s): E83.51 - Hypocalcemia Status: Acute Assessment and Plan: * slow and steady improvement * s/p IV calcium gluconate * started on oral calcium as well as Vitamin D supplementation * with correction for albumin, calcium up to 8.4 * suspect deficiency due to poor oral intake coupled with Vitamin D deficiency * continue to follow calcium levels (2) Hypomagnesemia: Code(s): E83.42 - Hypomagnesemia Status: Resolved Assessment and Plan: * suspect also related to poor oral intake * sp IV replacement * on oral supplementation as well * follow trend (3) Hypokalemia: Code(s): E87.6 - Hypokalemia Status: Resolved Assessment and Plan: * related to low magnesium and calcium * improvement also noted with replacement and correction of #1 and #2 * replete as needed * follow trend (4) Chronic kidney disease, stage 3: Code(s): N18.30 - Chronic kidney disease, stage 3 unspecified Status: Chronic Assessment and Plan: * by reported history * however, renal function normal by labs on last hospital discharge * has improved with IVFs since admission * suspect normal creatinine is likely a manifestation of bed bound status/immobility and accompanying reduction in muscle mass with contributions from reduced/poor oral intake * follow trend of repeat labs and UOP (5) Vitamin D deficiency: Code(s): E55.9 - Vitamin D deficiency, unspecified Status: Chronic Assessment and Plan: * an noted by admission testing: * Vitamin D <12.8 (on 12/09/24) * started on ergocalciferol 50,000 PO weekly (6) Hypertension: Code(s): I10 - Essential (primary) hypertension Status: Chronic Assessment and Plan: * reasonable control at this time * continue home medications * follow trend of hemodynamics Will continue to follow. L Subjective Date/time seen: 12/11/24 14:20 Interval history: Follow-up for hypocalcemia, hypokalemia, and hypomagnesemia. Improvement in electrolytes noted by trend of labs; reports not feeling well but not really able to elaborate any specifics; IVFs discontinued due to concerns of possible fluid overload give lung exam; no other acute issues/events overnight or earlier this morning. Exam 2 Narrative: General: elderly and thin/frail female in NAD Heart: normal S1 and S2; no rub Lungs: clear anteriorly; coarse at bases Abdomen: soft, nontender, nondistended, positive bowel sounds Extremities: no cyanosis or clubbing; no edema Skin: warm and dry in LEs Objective Data Vital Signs Vital Signs: Vital Signs Temp Pulse Resp BP Pulse Ox O2 Del Method 12/11/24 13:00 97.9 F 64 14 153/68 H 100 12/11/24 11:03 Room Air 12/11/24 08:00 62 12/11/24 08:00 Room Air 12/11/24 08:00 98.1 F 65 14 143/59 H 100 12/11/24 04:00 50 L 12/11/24 03:46 98.3 F 59 L 18 147/63 H 93 12/11/24 00:00 49 L 12/10/24 23:34 97.4 F L 54 L 18 137/64 96 12/10/24 20:00 44 L 12/10/24 20:00 Room Air 12/10/24 20:00 97.7 F 50 L 18 149/57 H 97 Intake/Output Intake/Output: Intake & Output 12/08/24 12/09/24 12/10/24 12/11/24 23:59 23:59 23:59 23:59 Intake Total 580.0 2930 3978.8 Output Total 150 300 Balance 430.0 2930 3678.8 Meds/Results Medications: Active Medications Generic Name Dose Route Start Last Admin Trade Name Freq PRN Reason Stop Dose Admin Acetaminophen 650 mg 12/09/24 11:57 Acetaminophen 325 Mg Tablet PO Q4H PRN Mild Pain (1-3) or Fever Atorvastatin Calcium 20 mg 12/10/24 18:00 12/11/24 18:06 Atorvastatin 20 Mg Tablet PO 20 mg QPM SALMA Administration Calcium Carbonate 1,000 mg 12/10/24 10:00 12/11/24 15:06 Calcium Carbonate (Oscal) 500 Mg Tablet PO 1,000 mg 1000,1500,2100 SALMA Administration Collagenase 1 applic 12/10/24 09:00 12/11/24 07:59 Collagenase Oint 30 Gm Tube TOPICAL 1 applic QAM SALMA Administration Donepezil HCl 10 mg 12/10/24 09:00 12/11/24 07:58 Donepezil Hcl 5 Mg Tablet PO 10 mg DAILY SALMA Administration Enoxaparin Sodium 30 mg 12/10/24 09:00 12/11/24 07:59 Enoxaparin 30 Mg/0.3 Ml Syringe SUB-Q 30 mg DAILY SALMA Administration Ergocalciferol 50,000 units 12/10/24 09:00 12/10/24 08:16 Ergocalciferol 50,000 Units Capsule PO 50,000 units WEEKLY SALMA Administration Levothyroxine Sodium 150 mcg 12/10/24 06:30 12/11/24 06:08 Levothyroxine Sodium 150 Mcg Tablet PO 150 mcg DAILY@0630 SALMA Administration Loperamide HCl 2 mg 12/09/24 20:38 12/11/24 18:05 Loperamide Hcl 2 Mg Capsule PO 2 mg PRN PRN Administration Diarrhea Losartan Potassium 50 mg 12/09/24 21:00 12/10/24 20:11 Losartan Potassium 50 Mg Tablet PO 50 mg QHS SALMA Administration Melatonin 10 mg 12/09/24 20:38 12/10/24 20:11 Melatonin 5 Mg Tablet PO 10 mg HS PRN Administration Insomnia Ondansetron HCl 4 mg 12/09/24 11:57 Ondansetron Inj 4 Mg/2 Ml Vial IV PUSH Q4H PRN Nausea Tramadol HCl 50 mg 12/09/24 20:38 Tramadol Hcl (*Crx) 50 Mg Tablet PO Q4H PRN Pain Rated 6 Or Greater Radiology Results: ITS Impressions Chest X-Ray 12/11/24 14:50 IMPRESSION: 1. Airspace opacities at right lung base, consistent with atelectasis versus pneumonia. 2. Small pleural effusions. Labs Labs: Laboratory Tests 12/10/24 08:40 12/11/24 07:29 Calcium 7.2 L Phosphorus 1.9 L Magnesium 1.7 Total Bilirubin 0.3 AST 25 ALT 24 Alkaline Phosphatase 80 Total Protein 5.0 L Albumin 2.0 L Microbiology 12/09/24 11:59 Urine Clean Catch Urine Culture - Final
[2024-12-11 16:43] LABS: Calcium/Creatinine Ratio, Ur 26 mg/g creat (10-320); Urine Calcium, Random 3.5 mg/dL; Urine Creatinine, Random 134 mg/dL (20-275)
[2024-12-11] MEDS: ATORVASTATIN 20 MG TABLET PO (18:06)
[2024-12-11] MEDS: LOSARTAN POTASSIUM 50 MG TABLET PO (20:20)
[2024-12-11] MEDS: MELATONIN 5 MG TABLET 10 MG PO (20:20)
[2024-12-12] VITALS (9 sets, daily range): BP systolic 142–156; BP diastolic 59–90; PULSE 60–101; RESP 13–16; TEMP 36.6–37.3; O2SAT 96–99
[2024-12-12 05:02] LABS: Basophils Absolute Auto 0.1 K/mm3 (0.0-0.1); Basophils Percent Auto 0.7 % (0.2-1.2); Eosinophils Absolute Auto 0.1 K/mm3 (0-0.3); Eosinophils Percent Auto 1.6 % (0-4.4); Hematocrit 28.5 % (37.0-47.0); Hemoglobin 9.1 g/dL (12.0-15.0); Immature Granulocyte Absolute 0.04 K/mm3 (0.00-0.031); Immature Granulocyte Percent A 0.5 % (0-0.5); Lymphocytes Absolute Auto 2.15 K/mm3 (0.9-3.2); Lymphocytes Percent Auto 26.6 % (18.3-44.2); Mean Corpuscular HGB Conc 31.9 g/dl (32-36); Mean Corpuscular Volume 90.8 fl (80-100); Mean Platelet Volume 11.8 fl (7.4-10.4); Monocytes Absolute Auto 0.5 K/mm3 (0.1-0.6); Monocytes Percent Auto 5.9 % (2.6-8.5); Neutrophils Absolute Auto 5.2 K/mm3 (1.3-6.7); Neutrophils Percent Auto 64.7 % (45.5-73.1); Platelet Count Result 211 k/mm3 (150-375); Red Blood Count 3.14 M/mm3 (4.2-5.4); Red Cell Distribution Width 17.9 % (11.5-14.5); White Blood Count 8.1 K/mm3 (4.5-10.0)
[2024-12-12 05:13] LABS: Alanine Aminotransferase 32 U/L (6-35); Albumin Level 1.9 g/dL (3.5-5.1); Alkaline Phosphatase 82 U/L (38-126); Anion Gap 1 mmol/L (4-12); Aspartate Amino Transferase 36 U/L (14-36); Bilirubin,Total 0.3 mg/dL (0.2-1.3); Blood Urea Nitrogen 15 mg/dL (7-17); Calcium 7.5 mg/dL (8.4-10.2); Carbon Dioxide 29 mmol/L (22-30); Chloride 107 mmol/L (98-107); Estimated CRCL calculation 34 ml/min; Estimated Glomerular Filt Rate > 60; Glucose 68 mg/dL (65-110); Magnesium 1.5 mg/dL (1.6-2.3); Phosphorus 1.4 mg/dL (2.5-4.5); Potassium 4.4 mmol/L (3.4-5.0); Sodium 137 mmol/L (137-145)
[2024-12-12] MEDS: LEVOTHYROXINE SODIUM 150 MCG TABLET PO (05:39)
[2024-12-12] MEDS: LOPERAMIDE HCL 2 MG CAPSULE PO ×3 (05:39→20:23)
--- NOTE | 2024-12-12 06:54 | PC.NURSE ---
HOSPITALIST CALLED STATING PT MORNING BS WAS LOW AT 68. GAVE PT 2 APPLE JUICES AND A PUDDING
[2024-12-12] MEDS: CALCIUM CARBONATE (OSCAL) 500 MG TABLET 1000 MG PO ×3 (08:14→17:54)
[2024-12-12] MEDS: AZITHROMYCIN 250 MG TABLET 500 MG PO (08:15)
[2024-12-12] MEDS: DOXYCYCLINE HYCLATE 100 MG TABLET PO ×2 (08:15→20:23)
[2024-12-12] MEDS: DONEPEZIL HCL 5 MG TABLET 10 MG PO (08:15)
[2024-12-12] MEDS: ENOXAPARIN 30 MG/0.3 ML SYRINGE SUB-Q (08:16)
[2024-12-12] MEDS: MAGNESIUM SULF 2 GM/WATER 50ML 2 GM/50 ML BAG IVPB (08:16)
[2024-12-12] MEDS: COLLAGENASE OINT 30 GM TUBE 1 APPLIC TOPICAL (08:17)
[2024-12-12] MEDS: POTASSIUM/PHOSPHORUS/SODIUM 1.5 GM PACKET 2 PACKET PO (08:17)
--- NOTE | 2024-12-12 12:35 | P.PNIM_ITS ---
Progress Note: A&P Assessment and Plan (1) Hypocalcemia: Code(s): E83.51 - Hypocalcemia Status: Acute Assessment and Plan: * Calcium improving. Last 6.7, additional Calcium gluconate 2,000 mg IVPB given. * Nephrology consulted, appreciate recommendations. * Monitor levels. 12/11/24: * Calcium today is 7.2 * With correction for albumin, Corrected calcium is 8.4. * No additional is given. 12/12/24: * Corrected calcium remains stable today at 7.5. (2) Hypomagnesemia: Code(s): E83.42 - Hypomagnesemia Status: Resolved Assessment and Plan: * Magnesium 0.5 on admission. Current Magnesium 2.1. * Monitor magnesium levels. 12/11/24: * 1.7. * Recheck in AM. 12/12/24: * Magnesium is 1.5 today. * 2G rider ordered. (3) Pneumonia: Code(s): J18.9 - Pneumonia, unspecified organism Status: Acute Assessment and Plan: 12/12/24: * CXR performed this AM shows that there is concern for a developing PNA. * Pt started on Doxycycline and Azithromycin. * Not meeting sepsis criteria. (4) Hypophosphatemia: Code(s): E83.39 - Other disorders of phosphorus metabolism Status: Acute Assessment and Plan: 12/12/24: * 2 packs of [place] ordered. * Recheck labs in AM. (5) Abnormal breath sounds: Code(s): R06.89 - Other abnormalities of breathing Status: Acute Assessment and Plan: 12/11/24: * Pt's breath sounds today are concerning for possible fluid overload. * VSS * IVF discontinued as her electrolyte abnormalities have improved. * Chest xray ordered. 12/12/24: * CXR performed this AM shows that there is concern for a developing PNA. * Pt started on Doxycycline and Azithromycin. * Not meeting sepsis criteria. (6) Hypokalemia: Code(s): E87.6 - Hypokalemia Status: Resolved Assessment and Plan: * Potassium improved from 2.5 to 3.8. * Monitor levels. 12/11/24: * Resolved (7) Chronic kidney disease, stage 3: Code(s): N18.30 - Chronic kidney disease, stage 3 unspecified Status: Chronic Assessment and Plan: * BUN 12, Creatinine 1.13, and GFR 46. 12/11/24: * Resolved/Stable at 0.95/15 * IVF discontinued at this time out of concern for pulmonary status. * Monitor labs and VS. 12/12/24: * Stable at 0.82/15 (8) Normocytic anemia: Code(s): D64.9 - Anemia, unspecified Status: Chronic Assessment and Plan: * Current H&H 10.1/32.7. 12/11/24: * Resolved. (9) Hypertension: Code(s): I10 - Essential (primary) hypertension Status: Chronic Assessment and Plan: * Current blood pressure 145/61. * Losartan 50 mg PO QHS. 12/11/24: * Stable (10) Vitamin D deficiency: Code(s): E55.9 - Vitamin D deficiency, unspecified Status: Chronic Assessment and Plan: * 12/09/24 Vitamin D <12.8. * Ergocalciferol 50,000 PO weekly. Time Spent With Patient Time with patient: 15 - 25 minutes Subjective Date/time seen: 12/12/24 12:35 Interval history: This pt was examined at the bedside today in interval assessment. She had a CXR yesterday that this morning shows that she is showing a possible PNA. Pt does not want to be out of bed, and whenever she is out of bed, she wants to go back. She has not been participating with therapy and will only pivot with them. Her electrolytes today are again low w/Phosphorus, Magnesium that are being released. She is started on Doxycycline and Azithromycin for PNA. Discussed again with pt the importance of being compliant with PT and being active. Orders placed for pt to be out of bed for every meal and to then remain up for one hour after. This was discussed with pt and Care Coordination, as I have concerns for pt wanting to return home. Review of Systems Review of Systems: All systems reviewed & are unremarkable except as noted in HPI and below Exam Narrative: General: Chronically ill-appearing elderly female in the semi-Perez position in bed. HEENT: PERRL, EOMI. Sclera anicteric. Neck: Supple. No JVD, FROM in a supple manner. Respiratory: Lungs with coarse crackles/rales bilaterally. Cardiovascular: Regular rate and rhythm with S1-S2. Gastrointestinal: Abdomen is soft, nontender, and nondistended with positive bowel sounds. Skin: Warm and dry. She has breakdown on her posterior. Extremities: No cyanosis, clubbing, or edema. Radial and pedal pulses intact. Neurological: Alert. No focal deficits noted Psychiatric: Cooperative today. Forgetful. Objective Data Vital Signs Vital Signs: Vital Signs - 24 hr 12/11/24 16:00 12/11/24 16:00 12/11/24 19:52 Temperature 97.6 F Pulse Rate 67 65 85 Respiratory Rate 18 16 Blood Pressure 146/67 H 151/67 H Pulse Oximetry 100 98 Oxygen Delivery 12/11/24 20:00 12/11/24 20:00 12/12/24 00:00 Temperature Pulse Rate 71 61 Respiratory Rate Blood Pressure Pulse Oximetry Oxygen Delivery Room Air 12/12/24 04:00 12/12/24 05:34 12/12/24 08:00 Temperature 97.9 F Pulse Rate 60 60 70 Respiratory Rate 16 Blood Pressure 144/69 H Pulse Oximetry 99 Oxygen Delivery 12/12/24 08:00 12/12/24 08:15 12/12/24 09:12 Temperature 98.0 F Pulse Rate 101 H Respiratory Rate 14 Blood Pressure 154/90 H Pulse Oximetry 97 Oxygen Delivery Room Air Room Air 12/12/24 10:58 Temperature Pulse Rate Respiratory Rate Blood Pressure Pulse Oximetry 96 Oxygen Delivery Room Air Intake/Output Intake/Output: Intake & Output 12/09/24 12/10/24 12/11/24 12/12/24 23:59 23:59 23:59 23:59 Intake Total 580.0 2930 3978.8 120 Output Total 150 300 Balance 430.0 2930 3678.8 120 Meds/Results Medications: Active Medications Generic Name Dose Route Start Last Admin Trade Name Freq PRN Reason Stop Dose Admin Acetaminophen 650 mg 12/09/24 11:57 Acetaminophen 325 Mg Tablet PO Q4H PRN Mild Pain (1-3) or Fever Atorvastatin Calcium 20 mg 12/10/24 18:00 12/11/24 18:06 Atorvastatin 20 Mg Tablet PO 20 mg QPM SALMA Administration Azithromycin 500 mg 12/12/24 09:00 12/12/24 08:15 Azithromycin 250 Mg Tablet PO 12/17/24 09:00 500 mg DAILY SALMA Administration Calcium Carbonate 1,000 mg 12/12/24 10:00 12/12/24 08:14 Calcium Carbonate (Oscal) 500 Mg Tablet PO 1,000 mg 1000,1400,1800 SALMA Administration Collagenase 1 applic 12/10/24 09:00 12/12/24 08:17 Collagenase Oint 30 Gm Tube TOPICAL 1 applic QAM SALMA Administration Donepezil HCl 10 mg 12/10/24 09:00 12/12/24 08:15 Donepezil Hcl 5 Mg Tablet PO 10 mg DAILY SALMA Administration Doxycycline Hyclate 100 mg 12/12/24 09:00 12/12/24 08:15 Doxycycline Hyclate 100 Mg Tablet PO 100 mg Q12HR SALMA Administration Enoxaparin Sodium 30 mg 12/10/24 09:00 12/12/24 08:16 Enoxaparin 30 Mg/0.3 Ml Syringe SUB-Q 30 mg DAILY SALMA Administration Ergocalciferol 50,000 units 12/10/24 09:00 12/10/24 08:16 Ergocalciferol 50,000 Units Capsule PO 50,000 units WEEKLY SALMA Administration Levothyroxine Sodium 150 mcg 12/10/24 06:30 12/12/24 05:39 Levothyroxine Sodium 150 Mcg Tablet PO 150 mcg DAILY@0630 SALMA Administration Loperamide HCl 2 mg 12/09/24 20:38 12/12/24 05:39 Loperamide Hcl 2 Mg Capsule PO 2 mg PRN PRN Administration Diarrhea Losartan Potassium 50 mg 12/09/24 21:00 12/11/24 20:20 Losartan Potassium 50 Mg Tablet PO 50 mg QHS SALMA Administration Melatonin 10 mg 12/09/24 20:38 12/11/24 20:20 Melatonin 5 Mg Tablet PO 10 mg HS PRN Administration Insomnia Ondansetron HCl 4 mg 12/09/24 11:57 Ondansetron Inj 4 Mg/2 Ml Vial IV PUSH Q4H PRN Nausea Tramadol HCl 50 mg 12/09/24 20:38 Tramadol Hcl (*Crx) 50 Mg Tablet PO Q4H PRN Pain Rated 6 Or Greater Radiology Results: ITS Impressions Chest X-Ray 12/11/24 14:50 IMPRESSION: 1. Airspace opacities at right lung base, consistent with atelectasis versus pneumonia. 2. Small pleural effusions. Labs Labs: Laboratory Results - last 24 hr 12/10/24 12/12/24 03:53 04:48 WBC 8.1 RBC 3.14 L Hgb 9.1 L Hct 28.5 L MCV 90.8 MCH 29.0 MCHC 31.9 L RDW 17.9 H Plt Count 211 MPV 11.8 H Immature Gran % (Auto) 0.5 Neut % (Auto) 64.7 Lymph % (Auto) 26.6 [place] % (Auto) 5.9 Eos % (Auto) 1.6 Baso % (Auto) 0.7 Lymph # (Auto) 2.15 [place] # (Auto) 0.5 Eos # (Auto) 0.1 Baso # (Auto) 0.1 Abs Immat Gran (auto) 0.04 H Absolute Neuts (auto) 5.2 Absolute Nucleated RBC 0.000 Nucleated RBC % 0.0 Sodium 137 Potassium 4.4 Chloride 107 Carbon Dioxide 29 Anion Gap 1 L BUN 15 Creatinine 0.82 Estim Creat Clear Calc 34 Estimated GFR > 60 Glucose 68 Calcium 7.5 L Phosphorus 1.4 L Magnesium 1.5 L Total Bilirubin 0.3 AST 36 ALT 32 Alkaline Phosphatase 82 Total Protein 5.0 L Albumin 1.9 L Ur Random Creatinine 134 Ur Random Calcium 3.5 Calcium/Creat Ratio 26 Quality VTE Prophylaxis VTE prophylaxis: pharmacologic ordered
--- NOTE | 2024-12-12 13:21 | P.PNNP_ITS ---
Progress Note: A&P Assessment and Plan (1) Hypocalcemia: Code(s): E83.51 - Hypocalcemia Status: Acute Assessment and Plan: * slow and steady improvement * s/p IV calcium gluconate * started on oral calcium as well as Vitamin D supplementation * with correction for albumin, calcium up to 8.4 * suspect deficiency due to poor oral intake coupled with Vitamin D deficiency * continue to follow calcium levels (2) Hypomagnesemia: Code(s): E83.42 - Hypomagnesemia Status: Resolved Assessment and Plan: * suspect also related to poor oral intake * sp IV replacement * on oral supplementation as well * follow trend (3) Hypokalemia: Code(s): E87.6 - Hypokalemia Status: Resolved Assessment and Plan: * related to low magnesium and calcium * improvement also noted with replacement and correction of #1 and #2 * replete as needed * follow trend (4) Chronic kidney disease, stage 3: Code(s): N18.30 - Chronic kidney disease, stage 3 unspecified Status: Chronic Assessment and Plan: * by reported history * however, renal function normal by labs on last hospital discharge * has improved with IVFs since admission * suspect normal creatinine is likely a manifestation of bed bound status/immobility and accompanying reduction in muscle mass with contributions from reduced/poor oral intake * follow trend of repeat labs and UOP (5) Vitamin D deficiency: Code(s): E55.9 - Vitamin D deficiency, unspecified Status: Chronic Assessment and Plan: * an noted by admission testing: * Vitamin D <12.8 (on 12/09/24) * started on ergocalciferol 50,000 PO weekly (6) Hypertension: Code(s): I10 - Essential (primary) hypertension Status: Chronic Assessment and Plan: * reasonable control at this time * continue home medications * follow trend of hemodynamics Will continue to follow. L Subjective Date/time seen: 12/12/24 13:21 Interval history: Follow-up for hypocalcemia, hypokalemia, and hypomagnesemia. Patient has no motivation to ambulate, get out of bed, or participate with therapy per my discussion with nursing; majority of electrolytes appear to be improving but still requiring PRN supplementation; no apparent distress noted. Exam 2 Narrative: General: elderly and thin/frail female in NAD Heart: normal S1 and S2; no rub Lungs: clear anteriorly; coarse at bases Abdomen: soft, nontender, nondistended, positive bowel sounds Extremities: no cyanosis or clubbing; no edema Skin: warm and intact in LEs Objective Data Vital Signs Vital Signs: Vital Signs Temp Pulse Resp BP Pulse Ox O2 Del Method 12/12/24 12:00 99.2 F 65 13 156/59 H 98 12/12/24 12:00 99 12/12/24 10:58 96 Room Air 12/12/24 09:12 Room Air 12/12/24 08:15 Room Air 12/12/24 08:00 98.0 F 101 H 14 154/90 H 97 12/12/24 08:00 70 12/12/24 05:34 97.9 F 60 16 144/69 H 99 12/12/24 04:00 60 12/12/24 00:00 61 12/11/24 20:00 71 12/11/24 20:00 Room Air 12/11/24 19:52 97.6 F 85 16 151/67 H 98 Intake/Output Intake/Output: Intake & Output 12/09/24 12/10/24 12/11/24 12/12/24 23:59 23:59 23:59 23:59 Intake Total 580.0 2930 3978.8 240 Output Total 150 300 Balance 430.0 2930 3678.8 240 Meds/Results Medications: Active Medications Generic Name Dose Route Start Last Admin Trade Name Freq PRN Reason Stop Dose Admin Acetaminophen 650 mg 12/09/24 11:57 Acetaminophen 325 Mg Tablet PO Q4H PRN Mild Pain (1-3) or Fever Atorvastatin Calcium 20 mg 12/10/24 18:00 12/12/24 17:54 Atorvastatin 20 Mg Tablet PO 20 mg QPM SALMA Administration Azithromycin 500 mg 12/12/24 09:00 12/12/24 08:15 Azithromycin 250 Mg Tablet PO 12/17/24 09:00 500 mg DAILY SALMA Administration Calcium Carbonate 1,000 mg 12/12/24 10:00 12/12/24 17:54 Calcium Carbonate (Oscal) 500 Mg Tablet PO 1,000 mg 1000,1400,1800 SALMA Administration Collagenase 1 applic 12/10/24 09:00 12/12/24 08:17 Collagenase Oint 30 Gm Tube TOPICAL 1 applic QAM SALMA Administration Donepezil HCl 10 mg 12/10/24 09:00 02/06/25 08:15 Donepezil Hcl 5 Mg Tablet PO 10 mg DAILY SALMA Administration Doxycycline Hyclate 100 mg 12/12/24 09:00 12/12/24 08:15 Doxycycline Hyclate 100 Mg Tablet PO 100 mg Q12HR SALMA Administration Enoxaparin Sodium 30 mg 12/10/24 09:00 12/12/24 08:16 Enoxaparin 30 Mg/0.3 Ml Syringe SUB-Q 30 mg DAILY SALMA Administration Ergocalciferol 50,000 units 12/10/24 09:00 12/10/24 08:16 Ergocalciferol 50,000 Units Capsule PO 50,000 units WEEKLY SALMA Administration Levothyroxine Sodium 150 mcg 12/10/24 06:30 12/12/24 05:39 Levothyroxine Sodium 150 Mcg Tablet PO 150 mcg DAILY@0630 [facility]MA Administration Loperamide HCl 2 mg 12/09/24 20:38 12/12/24 16:16 Loperamide Hcl 2 Mg Capsule PO 2 mg PRN PRN Administration Diarrhea Losartan Potassium 50 mg 12/09/24 21:00 12/11/24 20:20 Losartan Potassium 50 Mg Tablet PO 50 mg QHS SALMA Administration Melatonin 10 mg 12/09/24 20:38 12/11/24 20:20 Melatonin 5 Mg Tablet PO 10 mg HS PRN Administration Insomnia Ondansetron HCl 4 mg 12/09/24 11:57 Ondansetron Inj 4 Mg/2 Ml Vial IV PUSH Q4H PRN Nausea Tramadol HCl 50 mg 12/09/24 20:38 Tramadol Hcl (*Crx) 50 Mg Tablet PO Q4H PRN Pain Rated 6 Or Greater Radiology Results: ITS Impressions Chest X-Ray 12/11/24 14:50 IMPRESSION: 1. Airspace opacities at right lung base, consistent with atelectasis versus pneumonia. 2. Small pleural effusions. Labs Labs: Laboratory Tests 12/12/24 04:48 12/12/24 04:48 Calcium 7.5 L Phosphorus 1.4 L Magnesium 1.5 L Total Bilirubin 0.3 AST 36 ALT 32 Alkaline Phosphatase 82 Total Protein 5.0 L Albumin 1.9 L
[2024-12-12] MEDS: ATORVASTATIN 20 MG TABLET PO (17:54)
[2024-12-12] MEDS: LOSARTAN POTASSIUM 50 MG TABLET PO (20:23)
[2024-12-13] VITALS (8 sets, daily range): BP systolic 135–150; BP diastolic 62–73; PULSE 53–75; RESP 16–18; TEMP 36.2–36.6; O2SAT 97–99
[2024-12-13] MEDS: LEVOTHYROXINE SODIUM 150 MCG TABLET PO (06:08)
[2024-12-13 06:39] LABS: Alanine Aminotransferase 29 U/L (6-35); Alkaline Phosphatase 85 U/L (38-126); Anion Gap 1 mmol/L (4-12); Aspartate Amino Transferase 38 U/L (14-36); Bilirubin,Total 0.3 mg/dL (0.2-1.3); Blood Urea Nitrogen 17 mg/dL (7-17); Calcium 7.7 mg/dL (8.4-10.2); Carbon Dioxide 31 mmol/L (22-30); Chloride 104 mmol/L (98-107); Estimated CRCL calculation 30 ml/min; Estimated Glomerular Filt Rate 57; Glucose 86 mg/dL (65-110); Magnesium 1.6 mg/dL (1.6-2.3); Phosphorus 1.7 mg/dL (2.5-4.5); Potassium 5.2 mmol/L (3.4-5.0); Sodium 136 mmol/L (137-145)
[2024-12-13] MEDS: AZITHROMYCIN 250 MG TABLET 500 MG PO (09:17)
[2024-12-13] MEDS: DONEPEZIL HCL 5 MG TABLET 10 MG PO (09:18)
[2024-12-13] MEDS: COLLAGENASE OINT 30 GM TUBE 1 APPLIC TOPICAL (09:18)
[2024-12-13] MEDS: ENOXAPARIN 30 MG/0.3 ML SYRINGE SUB-Q (09:18)
[2024-12-13] MEDS: CALCIUM CARBONATE (OSCAL) 500 MG TABLET 1000 MG PO ×2 (09:18→17:15)
[2024-12-13] MEDS: LOPERAMIDE HCL 2 MG CAPSULE PO ×2 (09:18→20:40)
[2024-12-13] MEDS: DOXYCYCLINE HYCLATE 100 MG TABLET PO ×2 (09:18→20:37)
--- NOTE | 2024-12-13 11:22 | P.PNIM_ITS ---
Progress Note: A&P Assessment and Plan (1) Hypocalcemia: Code(s): E83.51 - Hypocalcemia Status: Acute Assessment and Plan: * Calcium improving. Last 6.7, additional Calcium gluconate 2,000 mg IVPB given. * Nephrology consulted, appreciate recommendations. * Monitor levels. 12/11/24: * Calcium today is 7.2 * With correction for albumin, Corrected calcium is 8.4. * No additional is given. 12/12/24: * Corrected calcium remains stable today at 8.5 12/13/24: * Corrected calcium today adjusted for albumin is 8.9. (2) Hypomagnesemia: Code(s): E83.42 - Hypomagnesemia Status: Resolved Assessment and Plan: * Magnesium 0.5 on admission. Current Magnesium 2.1. * Monitor magnesium levels. 12/11/24: * 1.7. * Recheck in AM. 12/12/24: * Magnesium is 1.5 today. * 2G rider ordered. 12/13/24: * 1.7 today after 2G Mag rider yesterday. (3) Pneumonia: Code(s): J18.9 - Pneumonia, unspecified organism Status: Acute Assessment and Plan: 12/12/24: * CXR performed this AM shows that there is concern for a developing PNA. * Pt started on Doxycycline and Azithromycin. * Not meeting sepsis criteria. 12/13/24: * Pt with congested cough. * Start Guaifenesin Q12 hrs to thin and allow for expectoration * Sputum Cx. * Continue abx. * Repeat CXR in AM to check progression/resolution of PNA. * Not meeting Sepsis criteria (4) Hypophosphatemia: Code(s): E83.39 - Other disorders of phosphorus metabolism Status: Acute Assessment and Plan: 12/12/24: * 2 packs of Phosnak ordered. * Recheck labs in AM. 12/13/24: * Phosphorus remains low at 1.7. * Another 2 packs of Phosnak ordered along with Kayexalate and Lasix IVP for Potassium today of 5.2 * Recheck Potassium at 1700 today and Phosphorus in AM * Appreciate Nephrology continuing to follow along with medicine. (5) Abnormal breath sounds: Code(s): R06.89 - Other abnormalities of breathing Status: Acute Assessment and Plan: 12/11/24: * Pt's breath sounds today are concerning for possible fluid overload. * VSS * IVF discontinued as her electrolyte abnormalities have improved. * Chest xray ordered. 12/12/24: * CXR performed this AM shows that there is concern for a developing PNA. * Pt started on Doxycycline and Azithromycin. * Not meeting sepsis criteria. 12/13/24: * See #3 (6) Hyperkalemia: Code(s): E87.5 - Hyperkalemia Status: Acute Assessment and Plan: 12/13/24: * In setting of treating Hypophosphatemia, the pt's Potassium level has risen from 4.4 yesterday to 5.2 today. * Pt receiving another dose of Phosnak for continued Hypophosphatemia, so she is given a dose of Kayexalate as well as a dose of Lasix 40 mg IVP to prevent Potassium from rising further. * Continue Telemetry * Recheck Potassium this evening at 1700. (7) Hypokalemia: Code(s): E87.6 - Hypokalemia Status: Resolved Assessment and Plan: * Potassium improved from 2.5 to 3.8. * Monitor levels. 12/11/24: * Resolved (8) Chronic kidney disease, stage 3: Code(s): N18.30 - Chronic kidney disease, stage 3 unspecified Status: Chronic Assessment and Plan: * BUN 12, Creatinine 1.13, and GFR 46. 12/11/24: * Resolved/Stable at 0.95/15 * IVF discontinued at this time out of concern for pulmonary status. * Monitor labs and VS. 12/12/24: * Stable at 0.82/15 12/13/24: * Remains stable at 0.94/17 (9) Normocytic anemia: Code(s): D64.9 - Anemia, unspecified Status: Chronic Assessment and Plan: * Current H&H 10.1/32.7. 12/11/24: * Resolved. Not in acute exacerbation. (10) Hypertension: Code(s): I10 - Essential (primary) hypertension Status: Chronic Assessment and Plan: * Current blood pressure 145/61. * Losartan 50 mg PO QHS. 12/11/24: * Stable (11) Vitamin D deficiency: Code(s): E55.9 - Vitamin D deficiency, unspecified Status: Chronic Assessment and Plan: * 12/09/24 Vitamin D <12.8. * Ergocalciferol 50,000 PO weekly. Time Spent With Patient Time with patient: Greater than 35 minutes Subjective Date/time seen: 12/13/24 0920 Interval history: This pt was examined at the bedside today. She continues to not want to get out of bed and remain mobile, but as I helped her into the chair to eat breakfast she actually transferred very well, just seemed very fearful. Again I encouraged her to be out of bed and she must for all meals and then sit up for an hour afterwards. Pt maintains she does not want to go to a SNF, but her degree of inactivity is making it hard to discharge to home especially as she is not wanting to work with PT. Her labs today again show hypophosphatemia. She is ordered another two packets of Phosnak, and as her Potassium today is 5.2, she is ordered a dose of Lasix and Kayexalate to accompany. Will recheck Potassium at 1700. Her magnesium is stable at 1.6 and Calcium at 7.7, which when adjusted for Albumin of 2.0 = 8.9. Review of Systems Review of Systems: All systems reviewed & are unremarkable except as noted in HPI and below Exam Narrative: General: Chronically ill-appearing elderly female helped into the bedside chair today for breakfast. HEENT: PERRL, EOMI. Sclera anicteric. MMM Neck: Supple. No JVD, FROM in a supple manner. Respiratory: Lungs with coarse crackles/rales bilaterally. Congested sounding cough is present. Cardiovascular: Regular rate and rhythm with S1-S2. Gastrointestinal: Abdomen is soft, nontender, and nondistended with positive bowel sounds. Skin: Warm and dry. She has breakdown on her posterior right calf with dressing in place. Extremities: No cyanosis, clubbing, or edema. Radial and pedal pulses intact. Neurological: Alert. No focal deficits noted Psychiatric: Hesitantly cooperative Objective Data Vital Signs Vital Signs: Vital Signs - 24 hr 12/12/24 12:00 12/12/24 12:00 12/12/24 16:00 Temperature 99.2 F 99.2 F Pulse Rate 99 65 65 Respiratory Rate 13 13 Blood Pressure 156/59 H 156/59 H Pulse Oximetry 98 98 Oxygen Delivery 12/12/24 16:00 12/12/24 20:00 12/12/24 20:00 Temperature Pulse Rate 68 73 Respiratory Rate Blood Pressure Pulse Oximetry Oxygen Delivery Room Air 12/12/24 20:03 12/13/24 00:00 12/13/24 04:00 Temperature 98.4 F Pulse Rate 69 60 53 L Respiratory Rate 16 Blood Pressure 142/67 H Pulse Oximetry 96 Oxygen Delivery 12/13/24 05:58 12/13/24 08:00 12/13/24 08:00 Temperature 97.7 F 97.4 F L Pulse Rate 60 64 60 Respiratory Rate 16 18 Blood Pressure 150/68 H 135/62 Pulse Oximetry 99 98 Oxygen Delivery 12/13/24 09:15 Temperature Pulse Rate Respiratory Rate Blood Pressure Pulse Oximetry Oxygen Delivery Room Air Intake/Output Intake/Output: Intake & Output 12/10/24 12/11/24 12/12/24 12/13/24 23:59 23:59 23:59 23:59 Intake Total 2930 3978.8 1680 640 Output Total 300 Balance 2930 3678.8 1680 640 Meds/Results Medications: Active Medications Generic Name Dose Route Start Last Admin Trade Name Freq PRN Reason Stop Dose Admin Acetaminophen 650 mg 12/09/24 11:57 Acetaminophen 325 Mg Tablet PO Q4H PRN Mild Pain (1-3) or Fever Atorvastatin Calcium 20 mg 12/10/24 18:00 12/12/24 17:54 Atorvastatin 20 Mg Tablet PO 20 mg QPM SALMA Administration Azithromycin 500 mg 12/12/24 09:00 12/13/24 09:17 Azithromycin 250 Mg Tablet PO 12/17/24 09:00 500 mg DAILY SALMA Administration Calcium Carbonate 1,000 mg 12/12/24 10:00 12/13/24 09:18 Calcium Carbonate (Oscal) 500 Mg Tablet PO 1,000 mg 1000,1400,1800 SALMA Administration Collagenase 1 applic 12/10/24 09:00 12/13/24 09:18 Collagenase Oint 30 Gm Tube TOPICAL 1 applic QAM SALMA Administration Donepezil HCl 10 mg 12/10/24 09:00 12/13/24 09:18 Donepezil Hcl 5 Mg Tablet PO 10 mg DAILY SALMA Administration Doxycycline Hyclate 100 mg 12/12/24 09:00 12/13/24 09:18 Doxycycline Hyclate 100 Mg Tablet PO 100 mg Q12HR SALMA Administration Enoxaparin Sodium 30 mg 12/10/24 09:00 12/13/24 09:18 Enoxaparin 30 Mg/0.3 Ml Syringe SUB-Q 30 mg DAILY SALMA Administration Ergocalciferol 50,000 units 12/10/24 09:00 12/10/24 08:16 Ergocalciferol 50,000 Units Capsule PO 50,000 units WEEKLY SALMA Administration Levothyroxine Sodium 150 mcg 12/10/24 06:30 12/13/24 06:08 Levothyroxine Sodium 150 Mcg Tablet PO 150 mcg DAILY@0630 SALMA Administration Loperamide HCl 2 mg 12/09/24 20:38 12/13/24 09:18 Loperamide Hcl 2 Mg Capsule PO 2 mg PRN PRN Administration Diarrhea Losartan Potassium 50 mg 12/09/24 21:00 12/12/24 20:23 Losartan Potassium 50 Mg Tablet PO 50 mg QHS SALMA Administration Melatonin 10 mg 12/09/24 20:38 12/11/24 20:20 Melatonin 5 Mg Tablet PO 10 mg HS PRN Administration Insomnia Ondansetron HCl 4 mg 12/09/24 11:57 Ondansetron Inj 4 Mg/2 Ml Vial IV PUSH Q4H PRN Nausea Tramadol HCl 50 mg 12/09/24 20:38 Tramadol Hcl (*Crx) 50 Mg Tablet PO Q4H PRN Pain Rated 6 Or Greater Radiology Results: ITS Impressions Chest X-Ray 12/11/24 14:50 IMPRESSION: 1. Airspace opacities at right lung base, consistent with atelectasis versus pneumonia. 2. Small pleural effusions. Labs Labs: Laboratory Results - last 24 hr 12/09/24 12/13/24 16:17 05:51 Sodium 136 L Potassium 5.2 H Chloride 104 Carbon Dioxide 31 H Anion Gap 1 L BUN 17 Creatinine 0.94 Estim Creat Clear Calc 30 Estimated GFR 57 L Glucose 86 Calcium 7.7 L Ionized Calcium [place] 4.0 L Phosphorus 1.7 L Magnesium 1.6 Total Bilirubin 0.3 AST 38 H ALT 29 Alkaline Phosphatase 85 Total Protein 5.0 L Albumin 2.0 L Quality VTE Prophylaxis VTE prophylaxis: pharmacologic ordered
[2024-12-13] MEDS: POTASSIUM/PHOSPHORUS/SODIUM 1.5 GM PACKET 2 PACKET PO (11:27)
[2024-12-13] MEDS: FUROSEMIDE INJ 40 MG/4 ML VIAL IV PUSH (11:27)
[2024-12-13] MEDS: SODIUM POLYSTYRENE SULFONONATE 15 GM/60 ML BTL PO (11:27)
--- NOTE | 2024-12-13 11:59 | P.PNNP_ITS ---
Progress Note: A&P Assessment and Plan (1) Hypocalcemia: Code(s): E83.51 - Hypocalcemia Status: Acute Assessment and Plan: * slow and steady improvement * s/p IV calcium gluconate * started on oral calcium as well as Vitamin D supplementation * with correction for albumin, calcium up to 8.9 * suspect deficiency due to poor oral intake coupled with Vitamin D deficiency * continue to follow calcium levels (2) Hypomagnesemia: Code(s): E83.42 - Hypomagnesemia Status: Resolved Assessment and Plan: * suspect also related to poor oral intake * sp IV replacement * on oral supplementation as well * follow trend (3) Hypokalemia: Code(s): E87.6 - Hypokalemia Status: Resolved Assessment and Plan: * related to low magnesium and calcium * improvement also noted with replacement and correction of #1 and #2 * replete as needed * follow trend (4) Chronic kidney disease, stage 3: Code(s): N18.30 - Chronic kidney disease, stage 3 unspecified Status: Chronic Assessment and Plan: * by reported history * however, renal function normal by labs on last hospital discharge * has improved with IVFs since admission * suspect normal creatinine is likely a manifestation of bed bound status/immobility and accompanying reduction in muscle mass with contributions from reduced/poor oral intake * follow trend of repeat labs and UOP (5) Vitamin D deficiency: Code(s): E55.9 - Vitamin D deficiency, unspecified Status: Chronic Assessment and Plan: * an noted by admission testing: * Vitamin D <12.8 (on 12/09/24) * started on ergocalciferol 50,000 PO weekly (6) Hypertension: Code(s): I10 - Essential (primary) hypertension Status: Chronic Assessment and Plan: * reasonable control at this time * continue home medications * follow trend of hemodynamics Will continue to follow. L Subjective Date/time seen: 12/13/24 11:59 Interval history: Follow-up for hypocalcemia, hypokalemia, and hypomagnesemia. Relatively stabiity in electrolytes although her phosphorus has been running on the low side as well requiring replacement therapy as well; no apparent distress noted at the time of my visit; no issues/events overnight or earlier this morning. Exam 2 Narrative: General: elderly and thin/frail female in NAD Heart: normal S1 and S2; no rub Lungs: clear anteriorly; coarse at bases Abdomen: soft, nontender, nondistended, positive bowel sounds Extremities: no cyanosis or clubbing; no edema Skin: no rash in LEs Objective Data Vital Signs Vital Signs: Vital Signs Temp Pulse Resp BP Pulse Ox O2 Del Method 12/13/24 12:00 97.1 F L 64 18 145/66 H 98 12/13/24 12:00 75 12/13/24 09:15 Room Air 12/13/24 08:00 60 12/13/24 08:00 97.4 F L 64 18 135/62 98 12/13/24 05:58 97.7 F 60 16 150/68 H 99 12/13/24 04:00 53 L 12/13/24 00:00 60 12/12/24 20:03 98.4 F 69 16 142/67 H 96 12/12/24 20:00 73 12/12/24 20:00 Room Air Intake/Output Intake/Output: Intake & Output 12/10/24 12/11/24 12/12/24 12/13/24 23:59 23:59 23:59 23:59 Intake Total 2930 3978.8 1680 1000 Output Total 300 900 Balance 2930 3678.8 1680 100 Meds/Results Medications: Active Medications Generic Name Dose Route Start Last Admin Trade Name Freq PRN Reason Stop Dose Admin Acetaminophen 650 mg 12/09/24 11:57 Acetaminophen 325 Mg Tablet PO Q4H PRN Mild Pain (1-3) or Fever Atorvastatin Calcium 20 mg 12/10/24 18:00 12/13/24 17:15 Atorvastatin 20 Mg Tablet PO 20 mg QPM SALMA Administration Azithromycin 500 mg 12/12/24 09:00 12/13/24 09:17 Azithromycin 250 Mg Tablet PO 12/17/24 09:00 500 mg DAILY SALMA Administration Calcium Carbonate 1,000 mg 12/12/24 10:00 12/13/24 17:15 Calcium Carbonate (Oscal) 500 Mg Tablet PO 1,000 mg 1000,1400,1800 SALMA Administration Collagenase 1 applic 12/10/24 09:00 12/13/24 09:18 Collagenase Oint 30 Gm Tube TOPICAL 1 applic QAM SALMA Administration Donepezil HCl 10 mg 12/10/24 09:00 12/13/24 09:18 Donepezil Hcl 5 Mg Tablet PO 10 mg DAILY SALMA Administration Doxycycline Hyclate 100 mg 12/12/24 09:00 12/13/24 09:18 Doxycycline Hyclate 100 Mg Tablet PO 100 mg Q12HR [facility] Administration Enoxaparin Sodium 30 mg 12/10/24 09:00 12/13/24 09:18 Enoxaparin 30 Mg/0.3 Ml Syringe SUB-Q 30 mg DAILY SALMA Administration Ergocalciferol 50,000 units 12/10/24 09:00 12/10/24 08:16 Ergocalciferol 50,000 Units Capsule PO 50,000 units WEEKLY [facility] Administration Guaifenesin 600 mg 12/13/24 21:00 Guaifenesin 12 Hr 600 Mg Tabcr PO Q12HR [facility] Levothyroxine Sodium 150 mcg 12/10/24 06:30 12/13/24 06:08 Levothyroxine Sodium 150 Mcg Tablet PO 150 mcg DAILY@0630 [facility] Administration Loperamide HCl 2 mg 12/09/24 20:38 12/13/24 09:18 Loperamide Hcl 2 Mg Capsule PO 2 mg PRN PRN Administration Diarrhea Losartan Potassium 50 mg 12/09/24 21:00 12/12/24 20:23 Losartan Potassium 50 Mg Tablet PO 50 mg QHS [facility] Administration Melatonin 10 mg 12/09/24 20:38 12/11/24 20:20 Melatonin 5 Mg Tablet PO 10 mg HS PRN Administration Insomnia Ondansetron HCl 4 mg 12/09/24 11:57 Ondansetron Inj 4 Mg/2 Ml Vial IV PUSH Q4H PRN Nausea Tramadol HCl 50 mg 12/09/24 20:38 Tramadol Hcl (*Crx) 50 Mg Tablet PO Q4H PRN Pain Rated 6 Or Greater Radiology Results: ITS Impressions Chest X-Ray 12/11/24 14:50 IMPRESSION: 1. Airspace opacities at right lung base, consistent with atelectasis versus pneumonia. 2. Small pleural effusions. Labs Labs: Laboratory Tests 12/12/24 04:48 12/13/24 05:51 Sodium 136 L Potassium 5.2 H Chloride 104 Carbon Dioxide 31 H Anion Gap 1 L BUN 17 Creatinine 0.94 Estim Creat Clear Calc 30 Estimated GFR 57 L Glucose 86 Calcium 7.7 L Phosphorus 1.7 L Magnesium 1.6 Total Bilirubin 0.3 AST 38 H ALT 29 Alkaline Phosphatase 85 Total Protein 5.0 L Albumin 2.0 L
--- NOTE | 2024-12-13 15:29 | PCOTNOTE ---
Patient refused treatment this session. Patient refused to get into a chair, sit on the edge of the bed or participate in any other activity at this time.
[2024-12-13] MEDS: ATORVASTATIN 20 MG TABLET PO (17:15)
[2024-12-13 17:35] LABS: Potassium 3.8 mmol/L (3.4-5.0)
[2024-12-13] MEDS: guaiFENesin 12 HR 600 MG TABCR PO (20:38)
[2024-12-14] VITALS (8 sets, daily range): BP systolic 132–152; BP diastolic 60–71; PULSE 59–86; RESP 16–20; TEMP 36.5–37.1; O2SAT 93–98
[2024-12-14] MEDS: LEVOTHYROXINE SODIUM 150 MCG TABLET PO (05:35)
[2024-12-14 06:04] LABS: Alanine Aminotransferase 30 U/L (6-35); Albumin Level 2.1 g/dL (3.5-5.1); Alkaline Phosphatase 79 U/L (38-126); Anion Gap 3 mmol/L (4-12); Aspartate Amino Transferase 29 U/L (14-36); Bilirubin,Total 0.4 mg/dL (0.2-1.3); Blood Urea Nitrogen 20 mg/dL (7-17); Calcium 7.3 mg/dL (8.4-10.2); Carbon Dioxide 29 mmol/L (22-30); Chloride 102 mmol/L (98-107); Estimated CRCL calculation 33 ml/min; Estimated Glomerular Filt Rate > 60; Glucose 77 mg/dL (65-110); Magnesium 1.4 mg/dL (1.6-2.3); Phosphorus 2.5 mg/dL (2.5-4.5); Potassium 4.1 mmol/L (3.4-5.0); Sodium 134 mmol/L (137-145)
[2024-12-14 06:13] LABS: Vitamin D 1,25 (OH)2 Total 43 pg/mL (18-72); Vitamin D2 1,25 (OH)2 <8 pg/mL; Vitamin D3 1,25 (OH)2 43 pg/mL
[2024-12-14] MEDS: MAGNESIUM SULF 2 GM/WATER 50ML 2 GM/50 ML BAG IVPB (08:02)
[2024-12-14] MEDS: DOXYCYCLINE HYCLATE 100 MG TABLET PO ×2 (08:11→20:24)
[2024-12-14] MEDS: AZITHROMYCIN 250 MG TABLET 500 MG PO (11:11)
[2024-12-14] MEDS: COLLAGENASE OINT 30 GM TUBE 1 APPLIC TOPICAL (11:27)
--- NOTE | 2024-12-14 11:27 | P.PNNP_ITS ---
Progress Note: A&P Assessment and Plan (1) Hypocalcemia: Code(s): E83.51 - Hypocalcemia Status: Acute Assessment and Plan: * slow and steady improvement * s/p IV calcium gluconate * started on oral calcium as well as Vitamin D supplementation * with correction for albumin, calcium continues to improve * suspect deficiency due to poor oral intake coupled with Vitamin D deficiency * continue to follow calcium levels (2) Hypomagnesemia: Code(s): E83.42 - Hypomagnesemia Status: Resolved Assessment and Plan: * suspect also related to poor oral intake * sp IV replacement * on oral supplementation as well * follow trend (3) Hypokalemia: Code(s): E87.6 - Hypokalemia Status: Resolved Assessment and Plan: * related to low magnesium and calcium * improvement also noted with replacement and correction of #1 and #2 * replete as needed * follow trend (4) Chronic kidney disease, stage 3: Code(s): N18.30 - Chronic kidney disease, stage 3 unspecified Status: Chronic Assessment and Plan: * by reported history * however, renal function normal by labs on last hospital discharge * has improved with IVFs since admission * suspect normal creatinine is likely a manifestation of bed bound status/immobility and accompanying reduction in muscle mass with contributions from reduced/poor oral intake * follow trend of repeat labs and UOP (5) Vitamin D deficiency: Code(s): E55.9 - Vitamin D deficiency, unspecified Status: Chronic Assessment and Plan: * an noted by admission testing: * Vitamin D <12.8 (on 12/09/24) * started on ergocalciferol 50,000 PO weekly (6) Hypertension: Code(s): I10 - Essential (primary) hypertension Status: Chronic Assessment and Plan: * reasonable control at this time * continue home medications * follow trend of hemodynamics Suspect stabilization of electrolytes will be better acheived by optimization of nutritional status as noted by her poor albumin; ongoing oral supplementations will help in the long run as well. Not much else to add at this itme -- will continue to follow form a distance. L Subjective Date/time seen: 12/14/24 11:27 Interval history: Follow-up for hypocalcemia, hypokalemia, and hypomagnesemia. No apparent distress voiced on my visit today; electrolytes appears relatively stable with ongoing scheduled oral supplementation; still not very ambulatory and not much motivation to work with therapy per nursing; no other issues/events overnight or earlier today. Exam 2 Narrative: General: elderly and thin/frail female in NAD Heart: normal S1 and S2; no rub Lungs: clear anteriorly; coarse at bases Abdomen: soft, nontender, nondistended, positive bowel sounds Extremities: no cyanosis or clubbing; no edema Skin: no nodules in LEs Objective Data Vital Signs Vital Signs: Vital Signs Temp Pulse Resp BP Pulse Ox O2 Del Method 12/14/24 11:00 98.1 F 79 18 150/70 H 97 12/14/24 08:00 67 12/14/24 08:00 Room Air 12/14/24 08:00 98.2 F 64 18 148/65 H 93 12/14/24 05:43 97.8 F 86 16 136/64 95 12/14/24 04:00 59 L 12/14/24 00:00 97.7 F 86 16 132/60 96 12/14/24 00:00 71 12/13/24 20:31 97.9 F 66 16 146/64 H 98 12/13/24 20:00 66 12/13/24 20:00 Room Air Intake/Output Intake/Output: Intake & Output 12/11/24 12/12/24 12/13/24 12/14/24 23:59 23:59 23:59 23:59 Intake Total 3978.8 1680 1000 640 Output Total 122 513 4002 Balance 3678.8 1680 100 -760 Meds/Results Medications: Active Medications Generic Name Dose Route Start Last Admin Trade Name Freq PRN Reason Stop Dose Admin Acetaminophen 650 mg 12/09/24 11:57 Acetaminophen 325 Mg Tablet PO Q4H PRN Mild Pain (1-3) or Fever Atorvastatin Calcium 20 mg 12/10/24 18:00 12/13/24 17:15 Atorvastatin 20 Mg Tablet PO 20 mg QPM SALMA Administration Azithromycin 500 mg 12/12/24 09:00 12/14/24 11:11 Azithromycin 250 Mg Tablet PO 12/17/24 09:00 500 mg DAILY SALMA Administration Calcium Carbonate 1,000 mg 12/12/24 10:00 12/14/24 14:54 Calcium Carbonate (Oscal) 500 Mg Tablet PO 1,000 mg 1000,1400,1800 SALMA Administration Collagenase 1 applic 12/10/24 09:00 12/14/24 11:27 Collagenase Oint 30 Gm Tube TOPICAL 1 applic QAM SALMA Administration Donepezil HCl 10 mg 12/10/24 09:00 12/14/24 11:11 Donepezil Hcl 5 Mg Tablet PO Not Given DAILY [facility] Doxycycline Hyclate 100 mg 12/12/24 09:00 12/14/24 08:11 Doxycycline Hyclate 100 Mg Tablet PO 100 mg Q12HR SALMA Administration Enoxaparin Sodium 30 mg 12/10/24 09:00 12/14/24 11:11 Enoxaparin 30 Mg/0.3 Ml Syringe SUB-Q Not Given DAILY [facility] Ergocalciferol 50,000 units 12/10/24 09:00 12/10/24 08:16 Ergocalciferol 50,000 Units Capsule PO 50,000 units WEEKLY [facility] Administration Guaifenesin 600 mg 12/13/24 21:00 12/14/24 11:12 Guaifenesin 12 Hr 600 Mg Tabcr PO Not Given Q12HR [facility] Levothyroxine Sodium 150 mcg 12/10/24 06:30 12/14/24 05:35 Levothyroxine Sodium 150 Mcg Tablet PO 150 mcg DAILY@0630 [facility] Administration Loperamide HCl 2 mg 12/09/24 20:38 12/14/24 12:44 Loperamide Hcl 2 Mg Capsule PO 2 mg PRN PRN Administration Diarrhea Losartan Potassium 50 mg 12/09/24 21:00 12/12/24 20:23 Losartan Potassium 50 Mg Tablet PO 50 mg QHS [facility] Administration Magnesium Oxide 200 mg 12/14/24 09:00 12/14/24 11:12 Magnesium Oxide 200 Mg Tablet PO Not Given DAILY [facility] Melatonin 10 mg 12/09/24 20:38 12/11/24 20:20 Melatonin 5 Mg Tablet PO 10 mg HS PRN Administration Insomnia Ondansetron HCl 4 mg 12/09/24 11:57 Ondansetron Inj 4 Mg/2 Ml Vial IV PUSH Q4H PRN Nausea Tramadol HCl 50 mg 12/09/24 20:38 12/14/24 14:54 Tramadol Hcl (*Crx) 50 Mg Tablet PO 50 mg Q4H PRN Administration Pain Rated 6 Or Greater Radiology Results: ITS Impressions Chest X-Ray 12/14/24 06:07 IMPRESSION: 1. Mild atelectasis at the lung bases with improvement on the right. 2. Small pleural effusions with improvement on the right. Labs Labs: Laboratory Tests 12/12/24 04:48 12/14/24 05:01 Calcium 7.3 L Phosphorus 2.5 Magnesium 1.4 L Total Bilirubin 0.4 AST 29 ALT 30 Alkaline Phosphatase 79 Total Protein 5.0 L Albumin 2.1 L
--- NOTE | 2024-12-14 12:03 | P.PNIM_ITS ---
Progress Note: A&P Assessment and Plan (1) Hypocalcemia: Code(s): E83.51 - Hypocalcemia Status: Acute Assessment and Plan: * Calcium improving. Last 6.7, additional Calcium gluconate 2,000 mg IVPB given. * Nephrology consulted, appreciate recommendations. * Monitor levels. 12/11/24: * Calcium today is 7.2 * With correction for albumin, Corrected calcium is 8.4. * No additional is given. 12/12/24: * Corrected calcium remains stable today at 8.5 12/13/24: * Corrected calcium today adjusted for albumin is 8.9. 12/14 calcium is nl (2) Hypomagnesemia: Code(s): E83.42 - Hypomagnesemia Status: Resolved Assessment and Plan: * Magnesium 0.5 on admission. Current Magnesium 2.1. * Monitor magnesium levels. 12/11/24: * 1.7. * Recheck in AM. 12/12/24: * Magnesium is 1.5 today. * 2G rider ordered. 12/13/24: * 1.7 today after 2G Mag rider yesterday. 12/14 Mg level is good (3) Pneumonia: Code(s): J18.9 - Pneumonia, unspecified organism Status: Acute Assessment and Plan: 12/12/24: * CXR performed this AM shows that there is concern for a developing PNA. * Pt started on Doxycycline and Azithromycin. * Not meeting sepsis criteria. 12/13/24: * Pt with congested cough. * Start Guaifenesin Q12 hrs to thin and allow for expectoration * Sputum Cx. * Continue abx. * Repeat CXR in AM to check progression/resolution of PNA. * Not meeting Sepsis criteria 12/14: continue ABX start PT/ OT cxr is improving - Mild atelectasis at the lung bases with improvement on the right. 2. Small pleural effusions with improvement on the right. (4) Hypophosphatemia: Code(s): E83.39 - Other disorders of phosphorus metabolism Status: Acute Assessment and Plan: 12/12/24: * 2 packs of Phosnak ordered. * Recheck labs in AM. 12/13/24: * Phosphorus remains low at 1.7. * Another 2 packs of Phosnak ordered along with Kayexalate and Lasix IVP for Potassium today of 5.2 * Recheck Potassium at 1700 today and Phosphorus in AM * Appreciate Nephrology continuing to follow along with medicine. 12/14: nephrology on board (5) Abnormal breath sounds: Code(s): R06.89 - Other abnormalities of breathing Status: Acute Assessment and Plan: 12/11/24: * Pt's breath sounds today are concerning for possible fluid overload. * VSS * IVF discontinued as her electrolyte abnormalities have improved. * Chest xray ordered. 12/12/24: * CXR performed this AM shows that there is concern for a developing PNA. * Pt started on Doxycycline and Azithromycin. * Not meeting sepsis criteria. 12/13/24: * See #3 12/14: continue treating for pneumonia hopeful DC on monday (6) Hyperkalemia: Code(s): E87.5 - Hyperkalemia Status: Acute Assessment and Plan: 12/13/24: * In setting of treating Hypophosphatemia, the pt's Potassium level has risen from 4.4 yesterday to 5.2 today. * Pt receiving another dose of Phosnak for continued Hypophosphatemia, so she is given a dose of Kayexalate as well as a dose of Lasix 40 mg IVP to prevent Potassium from rising further. * Continue Telemetry * Recheck Potassium this evening at 1700. 12/14 follow potassium levels daily (7) Chronic kidney disease, stage 3: Code(s): N18.30 - Chronic kidney disease, stage 3 unspecified Status: Chronic Assessment and Plan: * BUN 12, Creatinine 1.13, and GFR 46. 12/11/24: * Resolved/Stable at 0.95/15 * IVF discontinued at this time out of concern for pulmonary status. * Monitor labs and VS. 12/12/24: * Stable at 0.82/15 12/13/24: * Remains stable at 0.94/17 12/14 pt is at her baseline (8) Normocytic anemia: Code(s): D64.9 - Anemia, unspecified Status: Chronic Assessment and Plan: * Current H&H 10.1/32.7. (9) Hypertension: Code(s): I10 - Essential (primary) hypertension Status: Chronic Assessment and Plan: * Current blood pressure 145/61. * Losartan 50 mg PO QHS. * Stable (10) Vitamin D deficiency: Code(s): E55.9 - Vitamin D deficiency, unspecified Status: Chronic Assessment and Plan: * 12/09/24 Vitamin D <12.8. * Ergocalciferol 50,000 PO weekly. Subjective Date/time seen: 12/14/24 12:03 Interval history: 84-year-old female with hypertension, hypothyroidism, chronic kidney disease stage 3, chronic obstructive pulmonary disease, gastroesophageal reflux disease who presented to the emergency department for evaluation of of confusion and hand pain. At the time of my evaluation she is not much in the mood to talk and much of the following history is obtained via a review of her EMR. She was admitted to the hospital on 11/06/2024 with an incarcerated umbilical hernia status post repair with resection of 14 cm of small-bowel with anastomosis. She was discharged to rehab on 11/19/2024 but her stay was cut short as she was not making progress. Family members note that she has become increasingly confused and today the patient began complaining of pain in her hand and difficulties using her hands, more so on the left side. Currently she has no complaints aside from the fact that she wants to be left alone to sleep. When asked if she is eating okay she says ?I guess.? She denies nausea and vomiting but reports having diarrhea. Pt admitted for abnl electrolytes and pneumonia Doing better pt can start PT/ OT today Review of Systems Review of Systems: Electrolytes look better today still coughing alot Exam Narrative: General: Chronically ill-appearing elderly female helped into the bedside chair today for breakfast. HEENT: PERRL, EOMI. Sclera anicteric. MMM Neck: Supple. No JVD, FROM in a supple manner. Respiratory: Lungs with coarse crackles/rales bilaterally. Congested sounding cough is present. Cardiovascular: Regular rate and rhythm with S1-S2. Gastrointestinal: Abdomen is soft, nontender, and nondistended with positive bowel sounds. Skin: Warm and dry. She has breakdown on her posterior right calf with dressing in place. Extremities: No cyanosis, clubbing, or edema. Radial and pedal pulses intact. Neurological: Alert. No focal deficits noted Psychiatric: Hesitantly cooperative Objective Data Vital Signs Vital Signs: Vital Signs - 24 hr 12/13/24 16:00 12/13/24 16:00 12/13/24 20:00 Temperature 36.3 C L Pulse Rate 61 67 Respiratory Rate 18 Blood Pressure 147/73 H Pulse Oximetry 97 Oxygen Delivery Room Air 12/13/24 20:00 12/13/24 20:31 12/14/24 00:00 Temperature 36.6 C Pulse Rate 66 66 71 Respiratory Rate 16 Blood Pressure 146/64 H Pulse Oximetry 98 Oxygen Delivery 12/14/24 00:00 12/14/24 04:00 12/14/24 05:43 Temperature 36.5 C 36.6 C Pulse Rate 86 59 L 86 Respiratory Rate 16 16 Blood Pressure 132/60 136/64 Pulse Oximetry 96 95 Oxygen Delivery 12/14/24 08:00 12/14/24 08:00 12/14/24 08:00 Temperature 36.8 C Pulse Rate 64 67 Respiratory Rate 18 Blood Pressure 148/65 H Pulse Oximetry 93 Oxygen Delivery Room Air Intake/Output Intake/Output: Intake & Output 12/11/24 12/12/24 12/13/24 12/14/24 23:59 23:59 23:59 23:59 Intake Total 3978.8 1680 1000 640 Output Total 161 964 8234 Balance 3678.8 1680 100 -760 Meds/Results Medications: Active Medications Generic Name Dose Route Start Last Admin Trade Name Freq PRN Reason Stop Dose Admin Acetaminophen 650 mg 12/09/24 11:57 Acetaminophen 325 Mg Tablet PO Q4H PRN Mild Pain (1-3) or Fever Atorvastatin Calcium 20 mg 12/10/24 18:00 12/13/24 17:15 Atorvastatin 20 Mg Tablet PO 20 mg QPM SALMA Administration Azithromycin 500 mg 12/12/24 09:00 12/14/24 11:11 Azithromycin 250 Mg Tablet PO 12/17/24 09:00 500 mg DAILY [facility]MA Administration Calcium Carbonate 1,000 mg 12/12/24 10:00 12/14/24 11:12 Calcium Carbonate (Oscal) 500 Mg Tablet PO Not Given 1000,1400,1800 SALMA Collagenase 1 applic 12/10/24 09:00 12/14/24 11:27 Collagenase Oint 30 Gm Tube TOPICAL 1 applic QAM SALMA Administration Donepezil HCl 10 mg 12/10/24 09:00 12/14/24 11:11 Donepezil Hcl 5 Mg Tablet PO Not Given DAILY [facility] Doxycycline Hyclate 100 mg 12/12/24 09:00 12/14/24 08:11 Doxycycline Hyclate 100 Mg Tablet PO 100 mg Q12HR SALMA Administration Enoxaparin Sodium 30 mg 12/10/24 09:00 12/14/24 11:11 Enoxaparin 30 Mg/0.3 Ml Syringe SUB-Q Not Given DAILY [facility] Ergocalciferol 50,000 units 12/10/24 09:00 12/10/24 08:16 Ergocalciferol 50,000 Units Capsule PO 50,000 units WEEKLY [facility] Administration Guaifenesin 600 mg 12/13/24 21:00 12/14/24 11:12 Guaifenesin 12 Hr 600 Mg Tabcr PO Not Given Q12HR [facility] Levothyroxine Sodium 150 mcg 12/10/24 06:30 12/14/24 05:35 Levothyroxine Sodium 150 Mcg Tablet PO 150 mcg DAILY@0630 [facility] Administration Loperamide HCl 2 mg 12/09/24 20:38 12/13/24 20:40 Loperamide Hcl 2 Mg Capsule PO 2 mg PRN PRN Administration Diarrhea Losartan Potassium 50 mg 12/09/24 21:00 12/12/24 20:23 Losartan Potassium 50 Mg Tablet PO 50 mg QHS [facility] Administration Magnesium Oxide 200 mg 12/14/24 09:00 12/14/24 11:12 Magnesium Oxide 200 Mg Tablet PO Not Given DAILY [facility] Melatonin 10 mg 12/09/24 20:38 12/11/24 20:20 Melatonin 5 Mg Tablet PO 10 mg HS PRN Administration Insomnia Ondansetron HCl 4 mg 12/09/24 11:57 Ondansetron Inj 4 Mg/2 Ml Vial IV PUSH Q4H PRN Nausea Tramadol HCl 50 mg 12/09/24 20:38 Tramadol Hcl (*Crx) 50 Mg Tablet PO Q4H PRN Pain Rated 6 Or Greater Radiology Results: ITS Impressions Chest X-Ray 12/14/24 06:07 IMPRESSION: 1. Mild atelectasis at the lung bases with improvement on the right. 2. Small pleural effusions with improvement on the right. Labs Labs: Laboratory Results - last 24 hr 12/09/24 12/13/24 12/13/24 14:23 17:04 17:04 Sodium Potassium Cancelled 3.8 Chloride Carbon Dioxide Anion Gap BUN Creatinine Estim Creat Clear Calc Estimated GFR Glucose Calcium Phosphorus 2.0 L Magnesium Total Bilirubin AST ALT Alkaline Phosphatase Total Protein Albumin Vit D 1,25-Dihyd Total 43 1,25 Dihydroxy Vit D2 <8 1,25 Dihydroxy Vit D3 43 12/14/24 05:01 Sodium 134 L Potassium 4.1 Chloride 102 Carbon Dioxide 29 Anion Gap 3 L BUN 20 H Creatinine 0.85 Estim Creat Clear Calc 33 Estimated GFR > 60 Glucose 77 Calcium 7.3 L Phosphorus 2.5 Magnesium 1.4 L Total Bilirubin 0.4 AST 29 ALT 30 Alkaline Phosphatase 79 Total Protein 5.0 L Albumin 2.1 L Vit D 1,25-Dihyd Total 1,25 Dihydroxy Vit D2 1,25 Dihydroxy Vit D3
[2024-12-14] MEDS: LOPERAMIDE HCL 2 MG CAPSULE PO ×3 (12:44→20:24)
[2024-12-14] MEDS: traMADol HCL (*CRX) 50 MG TABLET PO (14:54)
[2024-12-14] MEDS: CALCIUM CARBONATE (OSCAL) 500 MG TABLET 1000 MG PO (14:54)
[2024-12-14] MEDS: ATORVASTATIN 20 MG TABLET PO (18:46)
[2024-12-14] MEDS: guaiFENesin 12 HR 600 MG TABCR PO (20:24)
[2024-12-15] VITALS (7 sets, daily range): BP systolic 143–154; BP diastolic 55–82; PULSE 56–62; RESP 12–18; TEMP 36.3–36.6; O2SAT 96–100
[2024-12-15] MEDS: LEVOTHYROXINE SODIUM 150 MCG TABLET PO (05:20)
[2024-12-15 05:40] LABS: Alanine Aminotransferase 37 U/L (6-35); Alkaline Phosphatase 83 U/L (38-126); Anion Gap 4 mmol/L (4-12); Aspartate Amino Transferase 39 U/L (14-36); Bilirubin,Total 0.3 mg/dL (0.2-1.3); Blood Urea Nitrogen 21 mg/dL (7-17); Calcium 7.5 mg/dL (8.4-10.2); Carbon Dioxide 29 mmol/L (22-30); Chloride 100 mmol/L (98-107); Estimated CRCL calculation 34 ml/min; Estimated Glomerular Filt Rate > 60; Glucose 86 mg/dL (65-110); Magnesium 1.6 mg/dL (1.6-2.3); Phosphorus 2.6 mg/dL (2.5-4.5); Potassium 4.2 mmol/L (3.4-5.0); Sodium 133 mmol/L (137-145)
[2024-12-15] MEDS: AZITHROMYCIN 250 MG TABLET 500 MG PO (09:27)
[2024-12-15] MEDS: guaiFENesin 12 HR 600 MG TABCR PO (09:28)
[2024-12-15] MEDS: MAGNESIUM OXIDE 200 MG TABLET PO (09:28)
[2024-12-15] MEDS: DOXYCYCLINE HYCLATE 100 MG TABLET PO (09:28)
[2024-12-15] MEDS: DONEPEZIL HCL 5 MG TABLET 10 MG PO (09:29)
[2024-12-15] MEDS: ENOXAPARIN 30 MG/0.3 ML SYRINGE SUB-Q (09:29)
--- NOTE | 2024-12-15 10:15 | P.DS_ITS ---
DS: Admitting Diagnosis Discharge Date 12/15/2024 Admitting Diagnosis Confusion and hand pain. DS: Discharge Diagnosis Discharge Diagnosis (1) Hypocalcemia: Code(s): E83.51 - Hypocalcemia Status: Acute Assessment and Plan: * Calcium improving. Last 6.7, additional Calcium gluconate 2,000 mg IVPB given. * Nephrology consulted, appreciate recommendations. * Monitor levels. 12/11/24: * Calcium today is 7.2 * With correction for albumin, Corrected calcium is 8.4. * No additional is given. 12/12/24: * Corrected calcium remains stable today at 8.5 12/13/24: * Corrected calcium today adjusted for albumin is 8.9. 12/14 calcium is nl ok to DC mookie (2) Hypomagnesemia: Code(s): E83.42 - Hypomagnesemia Status: Resolved Assessment and Plan: * Magnesium 0.5 on admission. Current Magnesium 2.1. * Monitor magnesium levels. 12/11/24: * 1.7. * Recheck in AM. 12/12/24: * Magnesium is 1.5 today. * 2G rider ordered. 12/13/24: * 1.7 today after 2G Mag rider yesterday. 12/14 Mg level is good ok to dc mookie (3) Pneumonia: Code(s): J18.9 - Pneumonia, unspecified organism Status: Acute Assessment and Plan: 12/12/24: * CXR performed this AM shows that there is concern for a developing PNA. * Pt started on Doxycycline and Azithromycin. * Not meeting sepsis criteria. 12/13/24: * Pt with congested cough. * Start Guaifenesin Q12 hrs to thin and allow for expectoration * Sputum Cx. * Continue abx. * Repeat CXR in AM to check progression/resolution of PNA. * Not meeting Sepsis criteria 12/14: continue ABX start PT/ OT cxr is improving - Mild atelectasis at the lung bases with improvement on the right. 2. Small pleural effusions with improvement on the right., ok to dc mookie (4) Hypophosphatemia: Code(s): E83.39 - Other disorders of phosphorus metabolism Status: Acute Assessment and Plan: 12/12/24: * 2 packs of Phosnak ordered. * Recheck labs in AM. 12/13/24: * Phosphorus remains low at 1.7. * Another 2 packs of Phosnak ordered along with Kayexalate and Lasix IVP for Potassium today of 5.2 * Recheck Potassium at 1700 today and Phosphorus in AM * Appreciate Nephrology continuing to follow along with medicine. 12/14: nephrology on board (5) Abnormal breath sounds: Code(s): R06.89 - Other abnormalities of breathing Status: Acute Assessment and Plan: 12/11/24: * Pt's breath sounds today are concerning for possible fluid overload. * VSS * IVF discontinued as her electrolyte abnormalities have improved. * Chest xray ordered. 12/12/24: * CXR performed this AM shows that there is concern for a developing PNA. * Pt started on Doxycycline and Azithromycin. * Not meeting sepsis criteria. 12/13/24: * See #3 12/14: continue treating for pneumonia hopeful DC mookie monday (6) Hyperkalemia: Code(s): E87.5 - Hyperkalemia Status: Acute Assessment and Plan: 12/13/24: * In setting of treating Hypophosphatemia, the pt's Potassium level has risen from 4.4 yesterday to 5.2 today. * Pt receiving another dose of Phosnak for continued Hypophosphatemia, so she is given a dose of Kayexalate as well as a dose of Lasix 40 mg IVP to prevent Potassium from rising further. * Continue Telemetry * Recheck Potassium this evening at 1700. 12/14 follow potassium levels daily (7) Chronic kidney disease, stage 3: Code(s): N18.30 - Chronic kidney disease, stage 3 unspecified Status: Chronic Assessment and Plan: * BUN 12, Creatinine 1.13, and GFR 46. 12/11/24: * Resolved/Stable at 0.95/15 * IVF discontinued at this time out of concern for pulmonary status. * Monitor labs and VS. 12/12/24: * Stable at 0.82/15 12/13/24: * Remains stable at 0.94/17 12/14 pt is at her baseline (8) Normocytic anemia: Code(s): D64.9 - Anemia, unspecified Status: Chronic Assessment and Plan: * Current H&H 10.1/32.7. (9) Hypertension: Code(s): I10 - Essential (primary) hypertension Status: Chronic Assessment and Plan: * Current blood pressure 145/61. * Losartan 50 mg PO QHS. * Stable (10) Vitamin D deficiency: Code(s): E55.9 - Vitamin D deficiency, unspecified Status: Chronic Assessment and Plan: * 12/09/24 Vitamin D <12.8. * Ergocalciferol 50,000 PO weekly. DS: Summary Hospital Course Hospital Course: 84-year-old female with hypertension, hypothyroidism, chronic kidney disease stage 3, chronic obstructive pulmonary disease, gastroesophageal reflux disease who presented to the emergency department for evaluation of of confusion and hand pain. At the time of my evaluation she is not much in the mood to talk and much of the following history is obtained via a review of her EMR. She was admitted to the hospital on 11/06/2024 with an incarcerated umbilical hernia status post repair with resection of 14 cm of small-bowel with anastomosis. She was discharged to rehab on 11/19/2024 but her stay was cut short as she was not making progress. Family members note that she has become increasingly confused and today the patient began complaining of pain in her hand and difficulties using her hands, more so on the left side. Currently she has no complaints aside from the fact that she wants to be left alone to sleep. When asked if she is eating okay she says ?I guess.? She denies nausea and vomiting but reports having diarrhea. Pt admitted for abnl electrolytes and pneumonia Doing better pt can start PT/ OT ok to DC today home with services Time Spent with Patient Time attestation: Total time spent providing and/or coordinating discharge services:40 minutes on day of dc Exam Narrative: General: Chronically ill-appearing elderly female helped into the bedside chair today for breakfast. HEENT: PERRL, EOMI. Sclera anicteric. MMM Neck: Supple. No JVD, FROM in a supple manner. Respiratory: Lungs with coarse crackles/rales bilaterally. Congested sounding cough is present. Cardiovascular: Regular rate and rhythm with S1-S2. Gastrointestinal: Abdomen is soft, nontender, and nondistended with positive bowel sounds. Skin: Warm and dry. She has breakdown on her posterior right calf with dressing in place. Extremities: No cyanosis, clubbing, or edema. Radial and pedal pulses intact. Neurological: Alert. No focal deficits noted Psychiatric: Hesitantly cooperative DS: Data Data Completed and Pending Labs on day of discharge: Labs from last 24 hours 12/15/24 04:57 Sodium 133 L Potassium 4.2 Chloride 100 Carbon Dioxide 29 Anion Gap 4 BUN 21 H Creatinine 0.82 Estim Creat Clear Calc 34 Estimated GFR > 60 Glucose 86 Calcium 7.5 L Phosphorus 2.6 Magnesium 1.6 Total Bilirubin 0.3 AST 39 H ALT 37 H Alkaline Phosphatase 83 Total Protein 5.0 L Albumin 2.0 L Discharge Plan Discharge Attending physician on discharge: Luiza Yeh Consulting providers: Reji Whitfield Discharging Clinician: Luiza Yeh Anticipated Discharge Date/Time: 12/15/24 10:12 Patient Disposition: Home Health Service Activity: as tolerated Diet: regular Discharge Instructions: Pt. has been accepted to have [facility] for RN, PT, OT [phone]. [facility] staff will call to arrange times to see you in your house after discharge RN please fax completed discharge instructions to [phone] Patient Instructions: Antibiotic Form Patient Language: Slovak Stand Alone Forms: General Discharge Information Follow-up/Referrals: Henry Hinojosa MD [Primary Care Provider] - (in 2-4 weeks time ) Discharge Medications: New calcium carbonate [Oyster Shell Calcium 500] 500 mg calcium (1,250 mg) Tablet 1,000 mg PO 1000,1400,1800 Qty: 30 0RF ergocalciferol (vitamin D2) [Vitamin D2] 1,250 mcg (50,000 unit) Capsule 1,250 mcg PO WEEKLY Qty: 7 0RF doxycycline hyclate 100 mg Tablet 100 mg PO Q12HR Qty: 5 0RF magnesium oxide 400 mg (241.3 mg magnesium) Tablet 200 mg PO DAILY Qty: 10 0RF guaifenesin [Mucus Relief ER] 600 mg Tablet Extended Release 12hr 600 mg PO Q12HR Qty: 30 0RF Continued meclizine 25 mg tablet 25 mg PO Q8H PRN (Reason: Dizziness) Rx Instructions: TAKE 1 TABLET BY MOUTH THREE TIMES DAILY NEEDED FOR DIZZINESS levothyroxine 150 mcg tablet 150 mcg PO DAILY Rx Instructions: Take 1 tablet by mouth once daily melatonin 10 mg Tablet 10 mg PO HS PRN (Reason: Insomnia) donepezil 5 mg tablet 10 mg PO DAILY losartan 50 mg tablet 50 mg PO QHS atorvastatin 20 mg tablet 20 mg PO QPM loperamide 2 mg Capsule 2 mg PO PRN PRN (Reason: Diarrhea) Qty: 14 0RF tramadol 50 mg Tablet 50 mg PO Q4H PRN (Reason: Pain Rated 6 Or Greater) Qty: 10 0RF acetaminophen 500 mg Tablet 500 mg PO Q6H PRN (Reason: Pain Rated 1-5) Qty: 20 0RF cholestyramine (with sugar) 4 gram Powder In Packet 1 ea PO DAILY@1000 Qty: 14 0RF pantoprazole 40 mg tablet,delayed release (DR/EC) 40 mg PO BID 30 Days Qty: 180 3RF Discontinued guaifenesin [Mucus Relief ER] 600 mg Tablet Extended Release 12hr 600 mg PO Q12HR Qty: 10 0RF Date of admission: 12/09/24 11:57 Primary Care Provider: Henry Hinojosa Admitting Provider: Franc Alejandro Attending physician on admission: Muriel Johnson Condition: Stable
[2024-12-15] MEDS: LOPERAMIDE HCL 2 MG CAPSULE PO ×2 (12:08→18:06)
[2024-12-15] MEDS: CALCIUM CARBONATE (OSCAL) 500 MG TABLET 1000 MG PO ×2 (12:08→17:55)
[2024-12-15] MEDS: COLLAGENASE OINT 30 GM TUBE 1 APPLIC TOPICAL (12:08)
[2024-12-15] MEDS: ATORVASTATIN 20 MG TABLET PO (17:56)
[2024-12-16 04:00] VITALS: BP 157/69; PULSE 60; RESP 18; TEMP 36.7; O2SAT 94
[2024-12-16] MEDS: LEVOTHYROXINE SODIUM 150 MCG TABLET PO (05:47)
[2024-12-18 00:19] LABS: Parathyroid Hormone Related Pr 9 pg/mL (11-20)
== END 2024-12-16 06:57 | disposition home health service (06) | DRG 640 ==
LOC: ANHED 11:56 → ANH3MEDSUR 12:43 → ANH2MED 15:09 → ANH3MEDSUR 12-18 12:25
PROVIDERS: Internal Medicine; Internal Medicine Nephrology; Nurse Practitioner Adult Health; Nurse Practitioner Family; Physician Assistant; Admitting Provider General Practice; Emergency Provider Family Medicine; PCP Emergency Medicine; Visit Provider Family Medicine
DX: E83.51 Hypocalcemia (principal); J18.9 Pneumonia, unspecified organism; E87.6 Hypokalemia; E83.42 Hypomagnesemia; N18.30 Chronic kidney disease, stage 3 unspecified; I12.9 Hypertensive chronic kidney disease with stage 1 through stage 4 chronic kidney disease, or unspecified chronic kidney disease; I73.9 Peripheral vascular disease, unspecified; I87.2 Venous insufficiency (chronic) (peripheral); J44.9 Chronic obstructive pulmonary disease, unspecified; D64.9 Anemia, unspecified; E87.5 Hyperkalemia; E03.9 Hypothyroidism, unspecified; E83.39 Other disorders of phosphorus metabolism; K21.9 Gastro-esophageal reflux disease without esophagitis; M06.9 Rheumatoid arthritis, unspecified; F32.A Depression, unspecified; F41.9 Anxiety disorder, unspecified; Z87.442 Personal history of urinary calculi; Z87.891 Personal history of nicotine dependence
CPT/HCPCS: 36415; 71045; 71046; 80048; 80053; 81001; 82306; 82310; 82330; 82533; 82550; 82570; 82607; 82652; 82728; 82746; 83519; 83540; 83550; 83735; 83970; 84100; 84132; 84134; 84443; 85025; 85610; 87086; 93005; 96365; 96367; 96368; 96375; 97110; 97161; 97166; 97530; 97535; 99285; A9270; J0613; J1650; J1940; J3475; J3480; J7030; J7040

== ENCOUNTER 2024-12-28 15:01 | Inpatient (IN) | payer MEDICARE, MEDICAID, SELFPAY ==
[2024-12-28] VITALS (10 sets, daily range): BP systolic 95–131; BP diastolic 57–70; PULSE 47–75; RESP 13–21; TEMP 36.6–36.7; O2SAT 98–100; BMI 21.2
--- NOTE | ~2024-12-28 | XR_ITS ---
EXAMINATION: XR chest 2V DATE: 12/28/2024 16:17 INDICATION: Shortness of breath. TECHNIQUE: Frontal and lateral views of the chest were obtained. COMPARISON: Chest single view 12/14/2024 FINDINGS: There are airspace opacities at the lung bases. There is a small right pleural effusion. No pneumothorax. The heart size is normal. There is an old fracture of proximal right humerus. IMPRESSION: 1. Airspace opacities at the lung bases, consistent with atelectasis versus pneumonia. 2. Small right pleural effusion. Reviewed, dictated and finalized at location A. [employer] IMPRESSION: 1. Airspace opacities at the lung bases, consistent with atelectasis versus pne umonia. 2. Small right pleural effusion.
--- NOTE | ~2024-12-28 | CT_ITS ---
EXAMINATION: CTA chest PE protocol DATE: 12/28/2024 17:52 INDICATION: Shortness of breath. TECHNIQUE: Computed tomography angiography (CTA) of the chest was performed with 100 mL Omnipaque-350 intravenous contrast timed to evaluate the pulmonary arteries. Coronal maximum intensity projection 3D-reconstructions were created by the technologist. Automated exposure control and iterative reconst ruction technique were employed. The dose-length product was 279.34 mGy-cm. COMPARISON: Chest CT 11/11/2024, CT abdomen and pelvis 12/22/18 FINDINGS: There is mild emphysema. There is mucous plugging in right middle lobe and right lower lobe . There is centrilobular nodules and airspace opacities in right middle lobe and right lower lobe, co nsistent with pneumonia. Calcified right lung nodules and calcified right hilar lymph nodes are consi stent with old granulomatous disease. There is a small right pleural effusion. The heart size is norm al. No pericardial effusion. There are coronary artery calcifications. There is no pulmonary embolus. There is a 1.7 cm mass in right adrenal gland. There is a 4.7 cm mass in left adrenal gland. These f indings are chronic, likely adenomas. There is a 2.6 cm peripherally calcified cyst in the spleen, li ajit an old hematoma or old infection. There are bridging endplate osteophytes at multiple levels in the spine, consistent with diffuse idiopathic skeletal hyperostosis (DISH). IMPRESSION: 1. No pulmonary embolus. 2. Pneumonia in right middle lobe and right lower lobe. 3. Small right pleural effusion. 4. Mild emphysema. Reviewed, dictated and finalized at location A. R SAWYER
--- NOTE | ~2024-12-28 | US_ITS ---
EXAMINATION: US venous doppler [facility] DATE: 12/28/2024 16:19 INDICATION: Lower limb swelling. TECHNIQUE: Grayscale ultrasound images without and with compression and Doppler ultrasound images of the bilateral lower extremity veins were obtained. COMPARISON: Ultrasound 03/02/2024 FINDINGS: The visualized portions of right common femoral vein, profunda (deep) femoral vein, femoral vein, pop liteal vein, peroneal veins, posterior tibial veins, and greater saphenous vein outflow are patent. The visualized portions of left common femoral vein, profunda femoral vein, femoral vein, popliteal v ein, posterior tibial veins, and greater saphenous vein outflow are patent. There is thrombus in the left peroneal veins. IMPRESSION: 1. Deep vein thrombosis involving the left peroneal veins. Reviewed, dictated and finalized at location A. T OF WAY CLEARER
--- NOTE | ~2024-12-28 | US_ITS ---
EXAMINATION: US renal BI DATE: 12/29/2024 12:09 INDICATION: Acute kidney injury. TECHNIQUE: Multiple ultrasound grayscale images of the kidneys were obtained. COMPARISON: CT abdomen and pelvis 11/13/2024 FINDINGS: The right kidney measures 9.0 x 4.3 x 5.0 cm. The left kidney measures 8.3 x 5.1 x 4.5 cm. The kidney s demonstrate normal parenchymal echogenicity. There is cortical thinning of the kidneys. There are c ysts in the kidneys measuring up to 10 mm on the right. There is no hydronephrosis. The bladder is no rmal. IMPRESSION: 1. Mild atrophy of the kidneys. No hydronephrosis. Reviewed, dictated and finalized at location A. R [employer]IST[employer]
--- NOTE | 2024-12-28 15:22 | ECG_ITS ---
Test Date: 2024-12-28 15:35:56 Measurements Intervals [place] Rate: 51 P: 0 OK: 0 QRS: -1 QRSD: 143 T: 69 QT: 521 QTc: 484 Interpretive Statements POSSIBLE ATRIAL FIBRILLATION WITH SLOW VENTRICULAR RESPONSE (SIGNIFICANT BASELINE ARTIFACT) RIGHT BUNDLE BRANCH BLOCK BASELINE ARTIFACT- I, II, III, AVR, AVL, AVF, V1-V6 ABNORMAL ECG Compared to ECG 12/10/2024 01:43:48 Sinus bradycardia no longer present Electronically Signed On 12-28-2024 17:05:25 ASSISTANT MAINTENANCE MANAGER by Alphonso Nicole D.O.
--- OUTSIDE RECORDS SUMMARY | 2024-12-28 15:23 | XMS_ITS | Encounter Summary ---
Author Organization [facility] Health Address [address] [place] [address] Care Team Providers Care Backend Developer Name Role Phone Robert Zuniga MD Primary Care Provider [phone] Karthik Benjamin MD Primary Care Provider [phone] Henry Hinojosa MD Primary Care Provider [phone] Encounter Details Date Type Department Care Team (Late st Contact Info) Description 09/28/2015 [facility] Outpatient Visit [facility] [address] [place] [address] [place] [address] [address] Social History Tobacco Use Types [...] on filedocumented in this encounter Care Teams Backend Developer Relationship Specialty Start Date End Date Robert Zuniga MD [address] [place] [address] PCP - General Family Medicine 09/18/15 11/13/19 Karthik Benjamin MD [address] [place] [address] PCP - General 11/14/19 09/20/22 Henry Hinojosa MD [address] [place] [address] PCP - General 09/21/22 documented as of this encounter
--- OUTSIDE RECORDS SUMMARY | 2024-12-28 15:23 | XMS_ITS | Clinical Summary ---
Author Organization [facility] Address [address] [facility] [address] [place] [address] Phone Care Team Providers Care Mop Worker Name Role Phone Henry Hinojosa MD Primary Care Provider [phone] Medications polyethylene glycol (MIRALAX) Powder Use entire [...] Immunization (#1) 2024 SARS-COV-2 Immunization ( - 25 season) 2024 Hepatitis B Immunization Aged Out No longer eligible based on patient's age to complete this topic Meningococcal Immunization (ACWY) Aged Out No longer eligible based on patient's age to complete this topic Rotavirus Immunization Aged Out No lo nger eligible based on patient's age to complete this topic Care Teams Mop Worker Relationship Specialty Start Date End Date Henry Hinojosa MD [address] [facility] [address] [place] [address] (work) PCP - General Internal Medicine 01/26/17
--- OUTSIDE RECORDS SUMMARY | 2024-12-28 15:23 | XMS_ITS | Clinical Summary ---
Author Organization [facility] [address] Address [address] [place] [address] Care Team Providers Care Office Copy Selector Name Role Phone Patel Adrian MD Primary Care Provider [phone] Allergies Active Allergy Reactions Criticality Noted Date Comments Alverto Inhibitors Rash Medium 03/23/2020 Penicillins Anaphylaxis Reaction: ANAPHYLAXIS Medications potassium chloride 10 mEq/100 mL Active fluticasone propionate (FLOVENT DISKUS) 50 mcg/actuation diskus inhaler Inhale 1 puff 2 (two) times a day Rinse mouth with water after use. Do not swallow. 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 Address: [address] [address] [place] [address] [employer] MEDICARE GOLD Care Teams Office Copy Selector Relationship Specialty Start Date End Date Patel Adrian MD [address] [place] [address] PCP - General 07/30/20
--- OUTSIDE RECORDS SUMMARY | 2024-12-28 15:23 | XMS_ITS | Patient Health Summary ---
Author Organization [facility] Address [address] [facility] [place] [address] Care Team Providers Care Employee Development Specialist Name Role Phone Henry Hinojosa MD Primary Care Provider [phone] Note from [facility],non-owned Affiliates and Associated Physician Practices is amultiple site organization consisting of ambulatory clinics and hospital sitesin [place], [place], [place] and [place]. This disclosure is being madepursuant to the Care Everywhere program and may not contain all information available regarding this patient. Last updated 18.[facility] Allergies * Penicillins(Swelling) Medications * Be [...] Comments Blood Pressure 125/65 12/05/2015 3:20 PM SOFTWARE ANALYST Pulse 72 12/05/2015 3:20 PM SOFTWARE ANALYST Temperature 36.9 C (98.4 F) 12/05/2015 3:20 PM SOFTWARE ANALYST Respiratory Rate 20 12/05/2015 3:20 PM SOFTWARE ANALYST Oxygen Saturation 95% 12/05/2015 3:20 PM SOFTWARE ANALYST Inhaled Oxygen Concentration 21% 09/29/2015 9 :38 AM SOFTWARE ANALYST Weight 126.6 kg (279 lb) 12/03/2015 7:24 AM SOFTWARE ANALYST Height 160 cm (5' 3 ) 12/03/2015 7:24 AM SOFTWARE ANALYST Body Mass Index 49.42 12/03/2015 7:24 AM SOFTWARE ANALYST Procedures * XR CHEST 1VW PORTABLE(Performed 12/05/2015) [...] XR CHEST 1VW PORTABLE (12/05/2015 4:23 PM SOFTWARE ANALYST) Anatomical Region Laterality Modality Chest Radiographic Radha ging 12/05/2015 5:04 PM SOFTWARE ANALYST Impressions 12/05/2015 5:04 PM SOFTWARE ANALYST Cardiomegaly and basilar atelectasis. Narrative 12/05/2015 5:04 PM SOFTWARE ANALYST AP Portable Chest Indication: Cough Findings: A [...] RDERABLES * HEMOGLOBIN A1C (12/04/2015 4:05 AM SOFTWARE ANALYST) Hemoglobin A1c 5.3 4.2 - 6.3 % 12/04/2015 5:20 AM SOFTWARE ANALYST [facility] Estimated Average Glucose 105 mg/dL 12/04/2015 5:20 AM SOFTWARE ANALYST [facility] Whole Blood BLOOD SPECIMEN WITH EDTA / Unknown 12/04/2015 4:05 AM SOFTWARE ANALYST 12/04/2015 4:43 AM SOFTWARE ANALYST Jacek Prasad PA-C LAB - CHEMISTRY ALEKSEY REN [facility] [address] [place] [address] * (ABNORMAL) CBC W AUTO DIFFERENTIAL (12/04/2015 4:05 AM [facility]) WBC 10.9(H) 4.4 - 10.7 x10^9/L 12/04/2015 5:09 AM [facility] WBC Corrected x10^9/L 12/04/2015 5:09 AM [facility] RBC 4.61 3.80 - 5.20 x10^12/L 12/04/2015 5:09 AM [facility] Hemoglobin 13.6 12.0 - 15.6 gm/dL 12/04/2015 5:09 AM [facility] Hematocrit 42.7 35.9 - 45.5 % 12/04/2015 5:09 AM [facility] MCV 92.6 80.7 - 98.3 fl 12/04/2015 5:09 AM [facility] MCH 29.5 26.7 - 34.0 pg 12/04/2015 5:09 AM [facility] MCHC 31.9 30.8 - 35.9 gm/dL 12/04/2015 5:09 AM [facility] Platelet Count 307 153 - 416 x10^9/L 12/04/2015 5:09 AM [facility] RDW-CV 17.1(H) 12.1 - 14.9 % 12/04/2015 5:09 AM [facility] MPV 11.7 9.4 - 12.9 fl 12/04/2015 5:09 AM [facility] Neutrophils % 73.9(H) 44.0 - 73.0 % 12/04/2015 5:09 AM [facility] Lymphocytes % 20.6 20.0 - 43.0 % 12/04/2015 5:09 AM [facility] Monocytes % 4.3(L) 5.0 - 13.0 % 12/04/2015 5:09 AM [facility] Eosinophils % 0.2 0.0 - 6.0 % 12/04/2015 5:09 AM [facility] Basophils % 0.6 0.0 - 2.0 % 12/04/2015 5:09 AM [facility] Immature Granulocytes 0.4 0 - 1 % 12/04/2015 5:09 AM [facility] Neutrophil Absolute 8.04(H) 2.01 - 7.14 x10^9/L 12/04/2015 5:09 AM [facility] Lymphocytes Absolute 2.24 1.07 - 3.94 x10^9/L 12/04/2015 5:09 AM [facility] Monocytes Absolute 0.47 0.26 - 1.07 x10^9/L 12/04/2015 5:09 AM [facility] Eosinophils Absolute 0.02 0 - 0.47 x10^9/L 12/04/2015 5:09 AM [facility] Basophils Absolute 0.06 0 - 0.08 x10^9/L 12/04/2015 5:09 AM [facility] Immature Granulocytes Absolute 0.04 0.00 - 0.06 x10^9/L 12/04/2015 5:09 AM [facility] nRBC Auto 0 /100 WBC 12/04/2015 5:09 AM [facility] Blood BLOOD SPECIMEN / Unknown 12/04/2015 4:05 AM SOFTWARE ANALYST 12/04/2015 4:43 AM [facility] Jacek Prasad PA-C LAB - HEMATOLOGY ORD ERABLES [facility] [address] [place] [address] * (ABNORMAL) BASIC METABOLIC PANEL (CALCIUM TOTAL) (12/04/2015 4:05 AM [facility]) Only the most recent of2 resultswithin the time period is included. Glucose 122(H) 74 - 106 mg/dL 12/04/2015 5:10 AM [facility] Sodium 139 136 - 145 mmol/L 12/04/2015 5:10 AM [facility] Potassium 3.9 3.5 - 5.1 mmol/L 12/04/2015 5:10 AM [facility] Chloride 102 98 - 107 mmol/L 12/04/2015 5:10 AM [facility] CO2 33(H) 22 - 31 mmol/L 12/04/2015 5:10 AM [facility] Calcium 9.0 8.5 - 10.1 mg/dL 12/04/2015 5:10 AM [facility] Anion Gap 4(L) 5 - 20 mmol/L 12/04/2015 5:10 AM SOFTWARE ANALYST [facility] BUN 12 7 - 21 mg/dL 12/04/2015 5:10 AM SOFTWARE ANALYST [facility] Creatinine 0.99 0.50 - 1.30 mg/dL 12/04/2015 5:10 AM SOFTWARE ANALYST [facility] eGFR by MDRD 55 mL/min/1.7 3m2 12/04/2015 5:10 AM SOFTWARE ANALYST [facility] eGFR by MDRD >60 mL/min/1.7 3m2 12/04/2015 5:10 AM [facility] Blood BLOOD SPECIMEN / Unknown 12/04/2015 4:05 AM SOFTWARE ANALYST 12/04/2015 4:43 AM SOFTWARE ANALYST Jacek Prasad PA-C LAB - CHEMISTRY MESERETE GELA Performing Organization Address [facility] Co de Phone Number [facility] [address] [place] [address] * EKG 12-LEAD (12/03/2015 8:02 AM SOFTWARE ANALYST) Ventricular Rate 69 BPM [facility] Atrial Rate 69 BPM [facility] P-R Interval 118 ms [facility] QRS Duration ms 100 ms [facility] Q-T Interval ms 454 ms [facility] QTC Calculation (Bezet) 486 ms [facility] Calculated P [place] 43 degrees [facility] Calculated R [place] -32 degrees [facility] Calculated T [place] 43 degrees [facility] Interpretation EKG Normal sinus rhythm Left axis deviation Abnormal ECG No previous ECGs available Confirmed by MD CLIFFORD, TRENA ([id number]) on 12/03/2015 6:09:42 PM [facility] 12/03/2015 8:02 AM SOFTWARE ANALYST 12/03/2015 6:09 PM SOFTWARE ANALYST Henry Seymour MD ECG ORDERABLES Performing Organization Address [facility] Co de Phone Number [facility] * VAS ARTERIAL ANKLE ARM INDEX (09/28/2015 11:30 AM SOFTWARE ANALYST) Anatomical Region Laterality Modality Ultrasound 09/28/2015 11:0 0 AM SOFTWARE ANALYST Narrative Procedure Note Henry Seymour MD - 09/28/2015 [facility] [address], [address] [place] [address] Lower Extremity Arterial Doppler Report Pat.Name: ARIELLE HERNANDEZ Pat.ID: [id number] St.Date: 09/28/2015 Exam Time: 11:00:00 AM Study Type:KWESI/PVR Age: 10 1940,75Y Sex: FEMALE Sonogrphr: Devonte Nicholson Rvt Pat. Stat.:Outpatient ICD - 9: I73.9 Peripheral vascular disease CPT - 4: 66168 Procedures:Ankle Brachial Index Visit ID: [id number] SUMMARY: Moderately diminished arterial circulation of the lower extremeties bilaterally, waveforms only. FINDINGS: Procedure: The arterial vasculature of the lower extremities was evaluated by analysis of Doppler pressures and waveforms obtained in the legs at rest. Study Quality: This study is of adequate technical quality. KWESI: Arterial doppler waveforms of the right ARCHITECTURAL DESIGNER are biphasic. Arterial doppler waveforms of the left ARCHITECTURAL DESIGNER are biphasic. Signed 09/28/2015 03:08 PM Henry Seymour MD Henry Seymour MD VASCULAR LAB ORDER NESS * VAS VENOUS DUPLEX LE BILATERAL (09/28/2015 11:30 AM SOFTWARE ANALYST) Anatomical Region Laterality Modality Ultrasound 09/28/2015 12:0 7 PM SOFTWARE ANALYST Narrative Procedure Note Henry Seymour MD - 09/28/2015 [facility] [address] [facility], [address] [place] [address] Lower Extremity Venous Ultrasound Report Pat.Name: ARIELLE HERNANDEZ.ID: [id number] St.Date: 09/28/2015 Exam Time: 12:07:00 PM Study Type:LE Venous Age: 10 1940,75Y Sex: FEMALE Sonogrphr: COURT Gee. Stat.:Outpatient ICD - 9: I82.4 Acute embolism and thrombosis of deep veins of lower extremity CPT - 4: 59781 Procedures:Lower Extremity Venous - Bilateral Visit ID: [id number] SUMMARY: There is no evidence of an [...] MD VASCULAR LAB ORDER NESS Care Teams Employee Development Specialist Relationship Specialty Start Date End Date Henry Hinojosa MD [address] [facility] [address] [place] [address] PCP - General 09/21/22
--- OUTSIDE RECORDS SUMMARY | 2024-12-28 15:23 | XMS_ITS | Referral Summary ---
Author Organization [facility] Address [address] [place] [address] Care Team Providers Care Compounder Flavorings Name Role Phone Henry Hinojosa MD Primary Care Provider [phone] Source Comments [facility],non-owned Affiliates and Associated Physician Practices is amultiple site organization consisting of ambulatory clinics and hospital sitesin [place], [place], [place] and [place]. This disclosure is being madepursuant to the Care Everywhere program and may not contain all information available regarding this patient. Last updated 18.[facility] Allergies Active Allergy Reactions Criticality Noted Date [...] Comments Blood Pressure 125/65 12/05/2015 3:20 PM CARD WRITER HAND Pulse 72 12/05/2015 3:20 PM CARD WRITER HAND Temperature 36.9 C (98.4 F) 12/05/2015 3:20 PM CARD WRITER HAND Respiratory Rate 20 12/05/2015 3:20 PM CARD WRITER HAND Oxygen Saturation 95% 12/05/2015 3:20 PM CARD WRITER HAND Inhaled Oxygen Concentration 21% 09/29/2015 9 :38 AM CARD WRITER HAND Weight 126.6 kg (279 lb) 12/03/2015 7:24 AM CARD WRITER HAND Height 160 cm (5' 3 ) 12/03/2015 7:24 AM CARD WRITER HAND Body Mass Index 49.42 12/03/2015 7:24 AM CARD WRITER HAND Functional Status Functional Status Response Date of [...] 1:10 PM 12/05/2015 8:14 PM Care Teams Compounder Flavorings Relationship Specialty Start Date End Date Henry Hinojosa MD [address] [address] PCP - General 09/21/22
--- OUTSIDE RECORDS SUMMARY | 2024-12-28 15:23 | XMS_ITS | Continuity of Care Document ---
Author Organization [facility] - Main Address [address] [address] Insurance Providers Payer Plan Claims Address Claims Phone Policy Number Group Number Relation Employer Guarantor Name Guarantor Guarantor Address Guarantor Phone Aena [facility] [id number] Self Arielle Pittman [address] [place] [id number] Coven try [facility] [id number] Mele Pittman [address] [place] [address] Comme ial 1 [id number] Self Arielle Pittman [address] [place], [place] [id number] Problems Condition ICD9 code ICD10 code SNOMED code Start Date End Date S tatus Acute cystitis with hematuria N30.01 Results No Results Allergies, adverse reactions, alerts No known allergies and adverse reactions Medications No administered medications reported Vital Signs No vital signs reported Social History No smoking Hx information available
--- OUTSIDE RECORDS SUMMARY | 2024-12-28 15:23 | XMS_ITS | Referral Summary ---
Author Organization [facility] [address] Address [address] [place] [address] Care Team Providers Care Pet Feeder Name Role Phone Patel Adrian MD Primary Care Provider [phone] Allergies Active Allergy Reactions Criticality Noted Date Comments Alverto Inhibitors Rash Medium 03/23/2020 Penicillins Anaphylaxis Reaction: ANAPHYLAXIS Medications potassium chloride 10 mEq/100 mL Active fluticasone propionate (FLOVENT DISKUS) 50 mcg/actuation diskus inhaler Inhale 1 puff 2 (two) times a day Rinse mouth with water after use. Do not swallow. 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
--- OUTSIDE RECORDS SUMMARY | 2024-12-28 15:23 | XMS_ITS | Clinical Summary ---
Author Organization [facility] Address [address] [place] [address] Care Team Providers Care Electrical Equipment Technician Name Role Phone Henry Hinojosa MD Primary Care Provider [phone] Source Comments [facility],non-owned Affiliates and Associated Physician Practices is amultiple site organization consisting of ambulatory clinics and hospital sitesin [place], [place], [place] and [place]. This disclosure is being madepursuant to the Care Everywhere program and may not contain all information available regarding this patient. Last updated 18.[facility] Allergies Active Allergy Reactions Criticality Noted Date [...] Comments Blood Pressure 125/65 12/05/2015 3:[address] INTERPRETER Pulse 72 12/05/2015 3:[address] INTERPRETER Temperature 36.9 C (98.4 F) 12/05/2015 3:[address] INTERPRETER Respiratory Rate 20 12/05/2015 3:[address] INTERPRETER Oxygen Saturation 95% 12/05/2015 3:[address] INTERPRETER Inhaled Oxygen Concentration 21% 09/29/2015 9 :[address] INTERPRETER Weight 126.6 kg (279 lb) 12/03/2015 7:[address] INTERPRETER Height 160 cm (5' 3 ) 12/03/2015 7:[address] INTERPRETER Body Mass Index 49.42 12/03/2015 7:[address] INTERPRETER Plan of Treatment Health Maintenance Due Date Last Done Comments BONE DENSITY TESTING 1940 DTAP/TDAP/TD VACCINES (1 - Tdap) 1959 PNEUMOCOCCAL VACCINE 50+ (1 of 2 - PCV) 1959 ZOSTER VACCINE (1 of 2) 1990 Respiratory Syncytial Virus (RSV) Vaccine Pt: or over 60 yrs (1 - 1-dose 75+ series) 2015 COVID-19 VACCINE ( - 2023-2 5 season) 2024 INFLUENZA VACCINE (#1) 2024 DEPRESSION SCREENING 11/06/2024 MEDICARE AWV CALENDAR YEAR 2024 HEPATITIS B VACCINE Aged [...] 1:10 PM 12/05/2015 8:14 PM Care Teams Electrical Equipment Technician Relationship Specialty Start Date End Date Henry Hinojosa MD [address] [place] [id number] PCP - General 09/21/22
[2024-12-28 15:53] LABS: Basophils Percent Auto 0.1 % (0.2-1.2); Hematocrit 28.6 % (37.0-47.0); Hemoglobin 9.5 g/dL (12.0-15.0); Immature Granulocyte Absolute 0.04 K/mm3 (0.00-0.031); Immature Granulocyte Percent A 0.4 % (0-0.5); Lymphocytes Percent Auto 4.6 % (18.3-44.2); Mean Corpuscular HGB Conc 33.2 g/dl (32-36); Mean Corpuscular Volume 90.2 fl (80-100); Mean Platelet Volume 12.3 fl (7.4-10.4); Monocytes Absolute Auto 0.4 K/mm3 (0.1-0.6); Monocytes Percent Auto 3.5 % (2.6-8.5); Neutrophils Percent Auto 91.4 % (45.5-73.1); Platelet Count Result 199 k/mm3 (150-375); Red Blood Count 3.17 M/mm3 (4.2-5.4); Red Cell Distribution Width 18.9 % (11.5-14.5); White Blood Count 10.9 K/mm3 (4.5-10.0)
--- NOTE | 2024-12-28 15:53 | ED.SOB ---
HPI - SOB/Dyspnea General Chief Complaint: Extremity Injury, Lower Stated Complaint: DYSPNEA, CHF History of Present Illness HPI Narrative: 84-year-old female presenting from private home with concerns of shortness of breath and bilateral lower extremity swelling right greater than left. Patient has extensive history including COPD, CKD, hypertension, hypothyroidism. She was just admitted to the hospital for a several day course for multiple derangements electrolytes, low albumin, low calcium, shortness of breath and early pneumonia was treated with antibiotics. Patient was discharged home with home health services. Patient presents via EMS after her friend that takes care of her was concerned that she was having worsening leg swelling. Patient herself is very poor historian and not able to provide me great details and what happened she states that most of her complaints have been chronic and not new. She has multiple skin tears around her extremities in both arms and legs that appear well taking care of and dressed from this morning's home health care visit. No new appearing injuries. Patient states that she frequently gets skin tears minor trauma. Denies any recent falls or head injury. She is noted to have weeping bilateral lower extremity legs with 2+ edema. Patient is very thin, frail, chronically ill-appearing. Noted to be incontinent on EMS transfer. Related Data Home Medications ?Medication ?Instructions ?Recorded ?Confirmed ?Last Taken ?Type levothyroxine 150 mcg tablet 150 mcg PO DAILY 08/31/23 12/09/24 Unknown History meclizine 25 mg tablet 25 mg PO Q8H PRN Dizziness 08/31/23 12/09/24 Unknown History melatonin 10 mg tablet 10 mg PO HS PRN Insomnia 08/31/23 12/09/24 Unknown History donepezil 5 mg tablet 10 mg PO DAILY 03/01/24 12/09/24 Unknown History atorvastatin 20 mg tablet 20 mg PO QPM 11/07/24 12/09/24 Unknown History losartan 50 mg tablet 50 mg PO QHS 11/07/24 12/09/24 Unknown History Allergies Allergy/AdvReac Type Severity Reaction Status Date / Time Penicillins Allergy Severe Hives Verified 12/09/24 10:28 Review of Systems Review of Systems: As reviewed above in [facility] Past Medical History Medical History (Updated 12/28/24 @ 20:27 by Malachi Fernandez MD) Diastolic dysfunction Vitamin D deficiency Chronic kidney disease, stage 3 Deep venous thrombosis COPD mixed type Peripheral vascular disease Pancreatitis Right kidney mass Chronic diarrhea Umbilical hernia Anxiety and depression Gastroesophageal reflux disease Hypertension Small bowel obstruction Kidney stones Rheumatoid arthritis Chronic venous stasis dermatitis Closed fracture of greater tuberosity of humerus Fracture of neck of humerus Hypothyroidism (acquired) Depression Surgical History Surgical History History of cataract extraction with lens replacement (2003) History of evacuation of hematoma (2013) lateral thigh History of section X1 History of cholecystectomy Family History Family History Sibling Patient's sister is in good health Mother Diabetes mellitus, Onset Age: 41 Father Heart attack Cardiovascular disease Social History Social History Social History: Emergency contact: Karuna Stone, lead generator ([phone]). Code status: Do not resuscitate. Smoking packs per day: 2 Smoking cigarettes per day: 40.0 Years smoked: 50 Smoking pack-years: 100.00 Smoking status: Former smoker Second hand tobacco smoke exposure: No Alcohol intake: never Substance use: never Substance use type: does not use Do You Feel Safe in your Home?: Yes Lack of Transportation: No Lack of Food: Never True Current Housing: I Have Housing Concerned About Future Housing: No Difficulty Paying Gas/Electric Bills: No Difficulty Paying for Meds: No Currently Unemployed: No Education: Grade School Difficulty w/ Childcare or Family Care: No Living arrangements: with friend(s) Additional living arrangements comments: Lives with lead generator/friend, Karuna. Occupation/Education: retired Additional occupation/education comments: Retired [employer]. Spiritual care concerns: No Exam Narrative: GENERAL: Chronically ill-appearing, various bruising and skin tears throughout both arms and legs. Awake and answering questions. HEAD: [Normocephalic, atraumatic.] EYES: [PERRLA and EOMI.] ENT: Nares clear, no rhinorrhea or epistaxis. Mucous membranes moist. NECK: Supple. CHEST: Coarse bibasilar breath sounds, congested-sounding cough. No tachypnea. HEART: [Regular rate and rhythm]. No murmur heard. [Normal peripheral pulses.] ABDOMEN: [Soft, nondistended], [nontender], [No rigidity or guarding] EXTREMITIES: 2+ pitting edema throughout the ankles up to the knees, right greater than left swelling, various bruising. Skin tears throughout both arms and legs, no active bleeding, serosanguineous appearing bowl on the dorsal aspect of the right 2nd toe. No tenderness of palpation, various discolorations of the skin to both feet, ankles, hands. No cyanosis. SKIN: As described above NEURO: [No focal deficits]. Alert answering questions. PSYCH: [Normal mood and affect.] Course Vital Signs Vital signs: Vital Signs Temperature 36.7 C 12/28/24 15:15 Pulse Rate 75 12/28/24 15:15 Respiratory Rate 20 12/28/24 15:15 Blood Pressure 111/57 L 12/28/24 15:15 Pulse Oximetry 100 12/28/24 15:15 Oxygen Delivery Room Air 12/28/24 15:15 Temperature 36.7 C 12/28/24 15:15 Pulse Rate 70 12/28/24 18:49 Respiratory Rate 16 12/28/24 18:49 Blood Pressure 118/70 12/28/24 18:49 Pulse Oximetry 100 12/28/24 18:49 Oxygen Delivery Room Air 12/28/24 15:52 MDM - SOB/Dyspnea MDM Narrative Medical decision making narrative: 84-year-old female with history of COPD, hypertension, CKD, hypothyroidism. Patient presents to the emergency department chief complaint of bilateral lower extremity swelling as well as shortness of breath. Patient was just discharged from the hospital approximately 2 weeks prior from a hospital admission where she was treated for abnormal electrolytes, calcium and low albumin as well as a pneumonia. Patient was discharged home with home health care. Patient is very chronically ill-appearing, his various bruising and skin tears throughout both arms and legs with paper thin skin. She has edematous legs with right greater than left edema, serosanguineous bowl are noted as well as weeping discharge with palpation of the legs. Patient endorses shortness of breath but states that is chronic and not new. Denies any history of DVT or PE. Does not take any blood thinners. She has high risk factors for thromboembolic event given her debilitated status, limited mobility, recent surgery in the beginning of the year for incarcerated hernia. DVT ultrasound was ordered the bilateral lower extremities. D-dimer was ordered, CBC, CMP, BNP, troponin, EKG, chest x-ray obtained. Lower extremity swelling could be a combination of factors. Her recent Echo this past year showed mild grade 1 diastolic dysfunction but no reduced ejection fraction. Swelling could be multifactorial but potentially related to a thromboembolic event such as DVT, low albumin causing low oncotic pressure and weeping fluid, less likely infectious pathology or cellulitis based on examination findings. Workup revealed a leukocytosis of 10.9, hemoglobin 9.5 which is stable from her baseline. Normal platelet count. D-dimer markedly elevated 6.81. CT angiography of the chest was ordered this time. Chemistry panel shows severe hypokalemia 2.6, IV and p.o. potassium was ordered in addition to p.o. magnesium given her low blood pressure will hold off on IV magnesium supplementation. BUN and creatinine are elevated likely from congestion as she appears overload with an elevated BNP of 8000 with previous baselines in the 1-2000 range. Lactic acidosis of 2.1. Troponin elevation at 0.107. Likely demand as she has no evidence of ischemia on her EKG and denies any chest pain. Low albumin at 2.6. COVID flu and RSV swabs were negative. Patient was given albumin bolus and attempted help with the 3rd spacing of fluids which will likely help her renal perfusion and absorption of the potassium and magnesium. DVT shows a deep venous thrombosis in left peroneal veins. Chest x-ray shows pneumonia. CT angiography shows no pulmonary embolism and pneumonia in multiple lobes including right middle and right lower. Small right-sided pleural effusion. Mild emphysema. Repeat EKG shows sinus bradycardia and right bundle branch block, consistent with her prior baselines. No signs of ST segment elevations, depressions or inversions. Very similar appearing EKGs chronically in the past. Patient was started on Eliquis for her deep venous thrombosis. Started on antibiotics for her pneumonia. She was given vancomycin, cefepime given her healthcare associated pneumonia as well as treatment with potassium and magnesium supplementation and albumin infusion. Will hold off on any fluid boluses given her clinical hypervolemia and fluid overload, will assess inpatient if patient needs fluids. Given patient's very complex clinical presentation with multiple electrolyte derangements, multiple organ dysfunction and active infection she requires higher level of care and admission to the hospital. Patient was accepted to the step-down unit after speaking to the mid-level provider currently covering the hospitalist service. Patient was informed and made aware of plan of care for admission. Medical Records Attestation: I reviewed the patient's medical records. Lab Data Attestation: I reviewed the patient's lab results. 12/28/24 15:47 12/28/24 15:47 Labs: Lab Results 12/28/24 Range/Units 15:47 WBC 10.9 H (4.5-10.0) K/mm3 RBC 3.17 L (4.2-5.4) M/mm3 Hgb 9.5 L (12.0-15.0) g/dL Hct 28.6 L (37.0-47.0) % MCV 90.2 (80-100) fl MCH 30.0 (26-34) pg MCHC 33.2 (32-36) g/dl RDW 18.9 H (11.5-14.5) % Plt Count 199 (150-375) k/mm3 MPV 12.3 H (7.4-10.4) fl Immature Gran % (Auto) 0.4 (0-0.5) % Neut % (Auto) 91.4 H (45.5-73.1) % Lymph % (Auto) 4.6 L (18.3-44.2) % [place] % (Auto) 3.5 (2.6-8.5) % Eos % (Auto) 0.0 (0-4.4) % Baso % (Auto) 0.1 L (0.2-1.2) % Lymph # (Auto) 0.50 L (0.9-3.2) K/mm3 [place] # (Auto) 0.4 (0.1-0.6) K/mm3 Eos # (Auto) 0.0 (0-0.3) K/mm3 Baso # (Auto) 0.0 (0.0-0.1) K/mm3 Abs Immat Gran (auto) 0.04 H (0.00-0.031) K/mm3 Absolute Neuts (auto) 10.0 H (1.3-6.7) K/mm3 Absolute Nucleated RBC 0.000 (0.0-0.012) K/mm3 Nucleated RBC % 0.0 (0.0-0.2) % PT 13.9 (11.1-14.7) Seconds INR 1.0 APTT 28.2 (22.3-36.8) Seconds D-Dimer 6.81 H (<0.48) ug/mL Sodium 142 (137-145) mmol/L Potassium 2.6 L* (3.4-5.0) mmol/L Chloride 106 (98-107) mmol/L Carbon Dioxide 24 (22-30) mmol/L Anion Gap 12 (4-12) mmol/L BUN 25 H (7-17) mg/dL Creatinine 1.57 H (0.7-1.0) mg/dL Estim Creat Clear Calc 17 ml/min Estimated GFR 31 L (59 - ) Glucose 95 (65-110) mg/dL Calcium 7.9 L (8.4-10.2) mg/dL Magnesium 1.3 L (1.6-2.3) mg/dL Total Bilirubin 0.6 (0.2-1.3) mg/dL AST 28 (14-36) U/L ALT 20 (6-35) U/L Alkaline Phosphatase 77 (38-126) U/L Troponin I 0.107 H* (0.000-0.034) ng/mL NT-Pro-B Natriuret Pep 8270 H (19.9-100) pg/mL Total Protein 6.0 L (6.3-8.2) g/dL Albumin 2.6 L (3.5-5.1) g/dL Imaging Data Attestation: I personally reviewed and interpreted this imaging study as follows: My impression: Impressions Venous Doppler Study 12/28/24 16:21 IMPRESSION: 1. Deep vein thrombosis involving the left peroneal veins. Chest X-Ray 12/28/24 16:36 IMPRESSION: 1. Airspace opacities at the lung bases, consistent with atelectasis versus pneumonia. 2. Small right pleural effusion. Chest CTA 12/28/24 17:53 IMPRESSION: 1. No pulmonary embolus. 2. Pneumonia in right middle lobe and right lower lobe. 3. Small right pleural effusion. 4. Mild emphysema. Critical Care Time Critical Care Time Critical Care Time: Yes Total Critical Care Time: 90 Discharge Plan Discharge Clinical Impression: Multifocal pneumonia, Acute hypokalemia, HCAP (healthcare-associated pneumonia), Fluid overload, DVT (deep venous thrombosis), Elevated troponin, Elevated brain natriuretic peptide (BNP) level, Hypomagnesemia, Hypoalbuminemia Patient Disposition: Still a Patient Condition: Guarded Prognosis Time of Disposition: 20:27
[2024-12-28 16:04] LABS: Prothrombin Time 13.9 Seconds (11.1-14.7)
[2024-12-28 16:05] LABS: Partial Thromboplastin Time 28.2 Seconds (22.3-36.8)
[2024-12-28 16:11] LABS: Alanine Aminotransferase 20 U/L (6-35); Albumin Level 2.6 g/dL (3.5-5.1); Alkaline Phosphatase 77 U/L (38-126); Anion Gap 12 mmol/L (4-12); Aspartate Amino Transferase 28 U/L (14-36); Bilirubin,Total 0.6 mg/dL (0.2-1.3); Blood Urea Nitrogen 25 mg/dL (7-17); Calcium 7.9 mg/dL (8.4-10.2); Carbon Dioxide 24 mmol/L (22-30); Chloride 106 mmol/L (98-107); Estimated CRCL calculation 17 ml/min; Estimated Glomerular Filt Rate 31; Glucose 95 mg/dL (65-110); Magnesium 1.3 mg/dL (1.6-2.3); Potassium 2.6 mmol/L (3.4-5.0); Sodium 142 mmol/L (137-145)
[2024-12-28 16:17] LABS: D Dimer 6.81 ug/mL (<0.48)
[2024-12-28 16:23] LABS: NT Pro B Type Natriuretic Pept 8270 pg/mL (19.9-100); Troponin I 0.107 ng/mL (0.000-0.034)
--- NOTE | 2024-12-28 16:27 | ECG_ITS ---
Test Date: 2024-12-28 15:53:02 Measurements Intervals [place] Rate: 48 P: 62 NV: 167 QRS: -7 QRSD: 159 T: 44 QT: 529 QTc: 476 Interpretive Statements SINUS BRADYCARDIA RIGHT BUNDLE BRANCH BLOCK BASELINE ARTIFACT- V1-V3 ABNORMAL ECG Compared to ECG 12/28/2024 15:35:56 Possible Atrial fibrillation no longer present Electronically Signed On 12-28-2024 17:04:30 SUMMER CAMP COUNSELOR by Alphonso Nicole D.O.
[2024-12-28] MEDS: ALBUMIN HUMAN 25% 25 GM/100 ML 100 ML IVPB (16:59)
[2024-12-28] MEDS: POTASSIUM CHLORIDE INJ 40 MEQ in SODIUM CHLORIDE 0.9% IV 500 ML 130 MEQ IVPB (17:00)
[2024-12-28] MEDS: POTASSIUM CHLORIDE 20 MEQ PACKET (FOR LIQUID) 40 MEQ PO (17:00)
--- NOTE | 2024-12-28 17:42 | PC.NURSE ---
pt to CT
--- NOTE | 2024-12-28 18:25 | P.HP_ITS ---
H&P: HPI History of Present Illness Date/Time: 12/28/24 18:25 Chief Complaint: Leg swelling. Narrative: This is an 84-year-old female with hypertension, hypothyroidism, chronic kidney disease stage 3, chronic obstructive pulmonary disease, diastolic dysfunction, anemia, and gastroesophageal reflux disease who presented to the emergency department for evaluation of leg swelling. She is a fair historian some of the following history is supplemented via a review of her electronic medical records. The patient is known to the hospitalist service and myself from an admission earlier this month with confusion and multiple electrolyte derangements including pretty significant hypocalcemia, hypomagnesemia, and hypokalemia. During that stay she was started on antibiotics for possible developing pneumonia and she was discharged on 12/15/2024 with prescriptions for doxycycline as well as for calcium and magnesium supplementation. Home health has been coming to visit and she lives at home with a friend who helps care for her. Her friend has noticed that the patient's legs have become increasingly swollen for the last week or so and she was sent in today after she noticed blistering and weeping coming from the legs. The patient tells me that she has not been feeling well with poor appetite and diarrhea although she admits that this is chronic for her. She does not have any other specific complaints and denies fever, chills, sweats, headache, sore throat, productive cough, chest pain, pleuritic pain, shortness of breath, orthopnea, paroxysmal nocturnal dyspnea, abdominal pain, nausea, vomiting, dysphagia, concerns for aspiration, dysuria, and calf pain. On exam she has several bruises and skin tears which she states is from getting tripped up in her walker; she denies recent falls. In the ED: Vital signs on arrival include a temperature 98.0?, blood pressure 111/57, pulse 75, respiratory 20, SpO2 100% on room air. Labs were significant for a WBC count of 10.9, hemoglobin 9.5, D-dimer 6.81, potassium 2.6, BUN 25, creatinine 1.57, glucose 95, calcium 7.9, magnesium 1.3, proBNP 8270, troponin 0.107, total protein 6.0, albumin 2.6. Left lower extremity venous Doppler ultrasound showed a DVT in the left peroneal veins. Chest CTA was negative for pulmonary embolism but did show pneumonia in the right middle and lower lobes as well as a small right pleural effusion. She was started on apixaban for the DVT and received both magnesium and potassium supplementation. She also received a dose of cefepime and vancomycin for pneumonia and she is being admitted in this setting for further treatment. Review of Systems Review of Systems: 12 systems were reviewed and are negativ e except for as per HPI. [facility] Past Medical History Medical History (Updated 12/28/24 @ 22:21 by Paula Herron PA-C) Kidney stones Diastolic dysfunction Vitamin D deficiency Chronic kidney disease, stage 3 Deep venous thrombosis COPD mixed type Peripheral vascular disease Pancreatitis Right kidney mass Chronic diarrhea Umbilical hernia Anxiety and depression Gastroesophageal reflux disease Hypertension Small bowel obstruction Rheumatoid arthritis Chronic venous stasis dermatitis Closed fracture of greater tuberosity of humerus Fracture of neck of humerus Hypothyroidism (acquired) Depression Surgical History Surgical History History of cataract extraction with lens replacement (2003) History of evacuation of hematoma (2013) lateral thigh History of section X1 History of cholecystectomy Family History Family History Sibling Patient's sister is in good health Mother Diabetes mellitus, Onset Age: 41 Father Heart attack Cardiovascular disease Social History Social History Social History: Emergency contact: Karuna Stone, wastewater analyst lab analyst ([phone]). Code status: Do not resuscitate. Smoking packs per day: 2 Smoking cigarettes per day: 40.0 Years smoked: 50 Smoking pack-years: 100.00 Smoking status: Former smoker Second hand tobacco smoke exposure: No Alcohol intake: never Substance use: never Substance use type: does not use Do You Feel Safe in your Home?: Yes Lack of Transportation: No Lack of Food: Never True Current Housing: I Have Housing Concerned About Future Housing: No Difficulty Paying Gas/Electric Bills: No Difficulty Paying for Meds: No Currently Unemployed: No Education: Grade School Difficulty w/ Childcare or Family Care: No Living arrangements: with friend(s) Additional living arrangements comments: Lives with wastewater analyst lab analyst/friend, Karuna. 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 Spiritual care concerns: No Meds Home Medications and Allergies Home Medications ?Medication ?Instructions ?Recorded ?Confirmed ?Type pantoprazole 40 mg tablet,delayed 40 mg PO BID 30 days #180 tabs 04/12/23 12/09/24 Rx release levothyroxine 150 mcg tablet 150 mcg PO DAILY 08/31/23 12/09/24 History meclizine 25 mg tablet 25 mg PO Q8H PRN Dizziness 08/31/23 12/09/24 History melatonin 10 mg tablet 10 mg PO HS PRN Insomnia 08/31/23 12/09/24 History donepezil 5 mg tablet 10 mg PO DAILY 03/01/24 12/09/24 History atorvastatin 20 mg tablet 20 mg PO QPM 11/07/24 12/09/24 History losartan 50 mg tablet 50 mg PO QHS 11/07/24 12/09/24 History cholestyramine (with sugar) 4 gram 1 ea PO DAILY@1000 #14 ea 11/19/24 12/09/24 Rx powder for susp in a packet loperamide 2 mg capsule 2 mg PO PRN PRN Diarrhea #14 caps 11/19/24 12/09/24 Rx tramadol 50 mg tablet 50 mg PO Q4H PRN Pain Rated 6 Or 11/19/24 12/09/24 Rx Greater #10 tabs calcium carbonate (Oyster Shell 1,000 mg (2 x 500 mg calcium 12/15/24 Rx Calcium 500) (1,250 mg)) PO 1000,1400,1800 #30 tabs ergocalciferol (vitamin D2) 1,250 1,250 mcg PO WEEKLY #7 caps 12/15/24 Rx mcg (50,000 unit) capsule (Vitamin D2) guaifenesin 600 mg tablet, 600 mg PO Q12HR #30 tabs 12/15/24 Rx extended release 12 hr (Mucus Relief ER) magnesium oxide 400 mg (241.3 mg 200 mg (1/2 x 400 mg (241.3 mg 12/15/24 Rx magnesium) tablet magnesium)) PO DAILY #10 tabs Allergies Allergy/AdvReac Type Severity Reaction Status Date / Time Penicillins Allergy Severe Hives Verified 12/09/24 10:28 Vital Signs Vital Signs - 24 hr 12/28/24 15:15 12/28/24 15:50 12/28/24 15:51 Temperature 98.0 F Pulse Rate 75 47 L 51 L Respiratory Rate 20 13 Blood Pressure 111/57 L 95/67 L Pulse Oximetry 100 100 Oxygen Delivery Room Air 12/28/24 15:52 12/28/24 17:04 Temperature Pulse Rate 62 Respiratory Rate 21 H Blood Pressure 107/66 Pulse Oximetry 100 99 Oxygen Delivery Room Air Exam Narrative: General: Chronically ill-appearing elderly female in the semi-Perez position in bed. Weight: 50.9 kg. BMI: 21.2. HEENT: PERRL, EOMI. Sclera anicteric. Conjunctiva mildly injected. Tacky mucous membranes. Neck: Supple. Respiratory: Lungs are clear to auscultation bilaterally. Cardiovascular: Regular rate and rhythm with S1-S2. Gastrointestinal: Abdomen is soft, nontender, and nondistended with positive bowel sounds. Skin: Warm and dry. Scattered bruising throughout the lower extremities with a skin tear on the left lower leg. There are few blisters on the lower extremities as well with some weeping. Toenails are thickened yellow. Extremities: No cyanosis or clubbing. Pitting edema of the lower legs and feet. Pedal pulses diminished but palpable. Negative Chacho sign bilaterally. Neurological: Alert. Cranial nerves 2-12 are grossly intact. Generalized weakness without gross focal findings. Psychiatric: Cooperative with appropriate mood. H&P: Results Labs Labs: Short CBC 12/28/24 Range/Units 15:47 WBC 10.9 H (4.5-10.0) K/mm3 Hgb 9.5 L (12.0-15.0) g/dL Hct 28.6 L (37.0-47.0) % Plt Count 199 (150-375) k/mm3 [facility] 12/28/24 15:47 Sodium 142 Potassium 2.6 L* Chloride 106 Carbon Dioxide 24 BUN 25 H Creatinine 1.57 H Glucose 95 Calcium 7.9 L Cardiac Enzymes 12/28/24 Range/Units 15:47 Troponin I 0.107 H* (0.000-0.034) ng/mL Liver Function 12/28/24 Range/Units 15:47 Total Bilirubin 0.6 (0.2-1.3) mg/dL AST 28 (14-36) U/L ALT 20 (6-35) U/L Alkaline Phosphatase 77 (38-126) U/L Albumin 2.6 L (3.5-5.1) g/dL Imaging Venous Doppler Study 12/28/24 16:21 IMPRESSION: 1. Deep vein thrombosis involving the left peroneal veins. Chest X-Ray 12/28/24 16:36 IMPRESSION: 1. Airspace opacities at the lung bases, consistent with atelectasis versus pneumonia. 2. Small right pleural effusion. Chest CTA 12/28/24 17:53 IMPRESSION: 1. No pulmonary embolus. 2. Pneumonia in right middle lobe and right lower lobe. 3. Small right pleural effusion. 4. Mild emphysema. Assessment and Plan Assessment and plan (1) Acute kidney injury: Code(s): N17.9 - Acute kidney failure, unspecified Status: Acute (2) Pneumonia: Code(s): J18.9 - Pneumonia, unspecified organism Status: Acute (3) Deep vein thrombosis of left lower extremity: Code(s): I82.402 - Acute embolism and thrombosis of unspecified deep veins of left lower extremity Status: Acute (4) Hypokalemia: Code(s): E87.6 - Hypokalemia Status: Resolved (5) Hypomagnesemia: Code(s): E83.42 - Hypomagnesemia Status: Resolved (6) Diastolic dysfunction: Code(s): I51.89 - Other ill-defined heart diseases Status: Acute (7) Chronic diarrhea: Code(s): K52.9 - Noninfective gastroenteritis and colitis, unspecified Status: Chronic (8) Normocytic anemia: Code(s): D64.9 - Anemia, unspecified Status: Chronic Plan The patient presented to the emergency department for evaluation of lower extremity swelling as detailed in HPI. Labs, imaging, EKG, and all reports were personally reviewed. She was found to have DVTs in the left peroneal veins and was started on apixaban in the ED which will be continued. Chest CTA was negative for pulmonary embolism but did show findings of right-sided pneumonia for which she has been started on antibiotics. Bedside swallow evaluation ordered to rule out dysphagia which could put her at risk for aspiration. ProBNP is significantly elevated compared to her baseline and with her lower extremity edema she would probably benefit from diuretics however her potassium needs to be replaced 1st. Small right-sided pleural effusion was noted on imaging though no mention of pulmonary edema. Initial troponin was elevated and will be trended; she has no complaints of exertional chest pain and EKG was without concerning ST segment changes. Echocardiogram has been ordered as she has not had 1 done for a year or more. She also has an acute kidney injury which may be pre renal from poor oral intake, ongoing chronic diarrhea, or even congestive heart failure. Albumin was given in the ED as there is likely component of 3rd spacing as well. Anemia stable on review of previous labs. Blood pressures have been stable and will be monitored. Her home medications will be reviewed and resumed as appropriate. Findings and treatment plan were discussed with the patient. Questions were solicited and answered to satisfaction. The patient's medical management will be taken over by the hospitalist team in a.m. Quality VTE Prophylaxis VTE prophylaxis: pharmacologic ordered (she has been started on apixaban for left lower extremity DVT) Hospitalist [facility] Advance Care Plan I have confirmed that the patient's Advanced Care Plan is present, code status is documented, or surrogate decision maker is listed in patient medical record.: Yes Medication Reconciliation I have utilized all available resources to obtain, update and review the patients current medications (includes all prescriptions, OTC, herbals, cannabis, and nutritional supplements).: Yes
[2024-12-28] MEDS: MAGNESIUM OXIDE 400 MG TABLET PO (18:46)
[2024-12-28 19:50] LABS: Influenza A QL RT-PCR Negative (Negative); Influenza B QL RT-PCR Negative (Negative); RSV RNA, RT-PCR Negative (Negative); SARS-CoV-2 RNA PCR Negative (Negative)
[2024-12-28 19:59] LABS: Lactic Acid Reflex 2.1 mmol/L (0.7-2.0)
[2024-12-28 20:24] LABS: MRSA (PCR) NOT DETECTED (NOT DETECTE)
[2024-12-28] MEDS: CEFEPIME 2 GM/NS 50 ML 2 GM/50 ML BAG IVPB (21:00)
[2024-12-28] MEDS: APIXABAN 5 MG TABLET PO (21:00)
--- NOTE | 2024-12-28 21:31 | ECG_ITS ---
Test Date: 2024-12-28 22:56:31 Measurements Intervals Dixon Rate: 56 P: 91 MO: 188 QRS: 200 QRSD: 146 T: 181 QT: 500 QTc: 483 Interpretive Statements SINUS BRADYCARDIA WITH OCCASIONAL SUPRAVENTRICULAR PREMATURE COMPLEXES LIMB LEAD REVERSAL RIGHT BUNDLE BRANCH BLOCK BASELINE ARTIFACT- I, II, III, AVR, AVL, AVF, V1-V2 ABNORMAL ECG Compared to ECG 12/28/2024 15:53:02 HEART RATE HAS INCREASED Electronically Signed On 12-29-2024 06:55:38 CAR CLEANER by Alphonso Nicole D.O.
[2024-12-28] MEDS: VANCOMYCIN 1,000 MG/NS 250 ML 1,000 MG/250 ML BAG 250 MG IVPB (22:04)
[2024-12-28 22:43] LABS: Reflex Lactic Acid Yes or No Add Lactic
[2024-12-29] VITALS (14 sets, daily range): BP systolic 113–130; BP diastolic 56–73; PULSE 44–69; RESP 14–18; TEMP 36.3–36.7; O2SAT 98–100
[2024-12-29 00:08] LABS: Anion Gap 6 mmol/L (4-12); Blood Urea Nitrogen 23 mg/dL (7-17); Calcium 7.9 mg/dL (8.4-10.2); Carbon Dioxide 26 mmol/L (22-30); Chloride 110 mmol/L (98-107); Estimated CRCL calculation 20 ml/min; Estimated Glomerular Filt Rate 36; Glucose 93 mg/dL (65-110); Magnesium 1.3 mg/dL (1.6-2.3); Potassium 3.3 mmol/L (3.4-5.0); Sodium 142 mmol/L (137-145)
[2024-12-29 00:27] LABS: Troponin I 0.118 ng/mL (0.000-0.034)
[2024-12-29] MEDS: DOXYCYCLINE HYCLATE 100 MG TABLET PO ×3 (00:51→21:08)
[2024-12-29] MEDS: LOPERAMIDE HCL 2 MG CAPSULE PO (00:52)
[2024-12-29] MEDS: MAGNESIUM SULFATE 3GM/D5W100ML 3 GM/100 ML BAG IVPB (00:52)
[2024-12-29] MEDS: MELATONIN 5 MG TABLET 10 MG PO (00:52)
[2024-12-29 00:56] LABS: Lactic Acid 1.5 mmol/L (0.7-2.0)
[2024-12-29] MEDS: POTASSIUM CHLORIDE 20 MEQ PACKET (FOR LIQUID) 40 MEQ PO (01:10)
[2024-12-29] MEDS: NACL 0.9% IRRIGATION POUR BOTTLE 500 ML (01:34)
[2024-12-29 03:20] LABS: Toxigenic C. Diff NEGATIVE (NEGATIVE)
[2024-12-29 04:23] LABS: Basophils Percent Auto 0.1 % (0.2-1.2); Eosinophils Percent Auto 0.1 % (0-4.4); Hematocrit 24.5 % (37.0-47.0); Immature Granulocyte Absolute 0.03 K/mm3 (0.00-0.031); Immature Granulocyte Percent A 0.4 % (0-0.5); Lymphocytes Absolute Auto 1.36 K/mm3 (0.9-3.2); Lymphocytes Percent Auto 17.5 % (18.3-44.2); Mean Corpuscular HGB Conc 32.7 g/dl (32-36); Mean Corpuscular Hemoglobin 29.7 pg (26-34); Mean Corpuscular Volume 91.1 fl (80-100); Monocytes Absolute Auto 0.3 K/mm3 (0.1-0.6); Neutrophils Absolute Auto 6.1 K/mm3 (1.3-6.7); Neutrophils Percent Auto 77.9 % (45.5-73.1); Platelet Count Result 156 k/mm3 (150-375); Red Blood Count 2.69 M/mm3 (4.2-5.4); White Blood Count 7.8 K/mm3 (4.5-10.0)
[2024-12-29 04:41] LABS: Alanine Aminotransferase 14 U/L (6-35); Albumin Level 2.4 g/dL (3.5-5.1); Alkaline Phosphatase 76 U/L (38-126); Anion Gap 5 mmol/L (4-12); Aspartate Amino Transferase 20 U/L (14-36); Bilirubin,Total 0.6 mg/dL (0.2-1.3); Blood Urea Nitrogen 20 mg/dL (7-17); Calcium 7.6 mg/dL (8.4-10.2); Carbon Dioxide 25 mmol/L (22-30); Chloride 111 mmol/L (98-107); Estimated CRCL calculation 21 ml/min; Estimated Glomerular Filt Rate 38; Glucose 84 mg/dL (65-110); Magnesium 2.3 mg/dL (1.6-2.3); Sodium 141 mmol/L (137-145)
[2024-12-29] MEDS: LEVOTHYROXINE SODIUM 150 MCG TABLET PO (06:07)
--- NOTE | 2024-12-29 06:51 | PC.NURSE ---
Left message for Karuna to notify of patient's room change to 205-1
--- NOTE | 2024-12-29 08:30 | P.CONCA_ITS ---
Assessment and Plan Assessment and plan (1) Bradyarrhythmia: Code(s): I49.8 - Other specified cardiac arrhythmias Status: Acute Assessment and Plan: 84-year-old female with hypertension, CKD, COPD/emphysema, hypothyroidism, cognitive impairment, history of tobacco abuse. Patient admitted to the hospital with shortness of breath, lower extremity swelling and episodes of dizziness and syncope. Patient was found to be in sinus bradycardia with heart rate in 40s and 50s, RBBB. On telemetry, patient has been in sinus bradycardia with heart rate in 40s and 50s, occasional pauses up to 2.2 seconds. Patient found to have left lower extremity DVT, CT negative for PE. In addition, imaging suggestive of pneumonia. -continue to monitor on telemetry for bradyarrhythmia. Check thyroid panel. Avoid AV rosa blocking agents. -plan for 2 week event monitor at discharge to evaluate for significant bradyarrhythmias, unless she has significant pauses/bradyarrhythmia on the telemetry during this hospitalization which could warrant permanent pacemaker placement. No absolute indication for pacemaker placement at this time. -repeat echo with Doppler. Patient has minimal troponin elevation, likely non ACS. -management of pneumonia as per primary team (2) Diastolic CHF, acute on chronic: Code(s): I50.33 - Acute on chronic diastolic (congestive) heart failure Status: Acute Assessment and Plan: May use gentle diuresis only on p.r.n. basis. No significant volume overload at present. Monitor electrolytes and renal function. Repeat echo with Doppler to assess LV function. (3) Deep vein thrombosis of left lower extremity: Code(s): I82.402 - Acute embolism and thrombosis of unspecified deep veins of left lower extremity Status: Acute Assessment and Plan: Patient has been initiated on anticoagulation with apixaban. CT negative for PE. History of Present Illness History of Present Illness Consult date/time: 12/29/24 08:30 Reason For Visit: Multifocal pneumonia, elevated cardiac markers,DVT Narrative: DATE OF CONSULT: 12/29/2024 REASON FOR CONSULT: Bradycardia, elevated troponin REQUESTING PHYSICIAN:Paula Herron PA-C CHIEF COMPLAINT: Shortness of breath HPI: 84-year-old female with hypertension, CKD, COPD/emphysema, hypothyroidism, cognitive impairment, history of tobacco abuse Patient presented to [facility] Emergency Room on 12/28/2024 with complaints of shortness of breath, dizziness and lower extremity swelling, left worse than right. Patient is minimally mobile over the years due to what she described as joint pains, gait instability and generalized weakness. She reported frequent episodes of dizziness and occasional syncope, when she has tried to stand up. No chest pain but reports dyspnea. Patient does not recall prior cardiac history including clinical [place], angina or any known significant arrhythmias. EKG presentation on my personal interpretation showed significant baseline artifact, RBBB. Subsequent EKG showed sinus bradycardia, heart rate 48 beats per minute, RBBB. Troponins minimally elevated with current peak troponin level 0.11. NT proBNP elevated at 8270. On telemetry, patient has been in sinus bradycardia with heart rate in 40s and 50s, occasional pauses up to 2.2 seconds. Chest x-ray showed airspace opacities at the lung bases, consistent with atelectasis versus pneumonia; small right pleural effusion. Venous duplex showed DVT s involving the left peroneal veins. CTA chest negative for pulmonary embolus; showed pneumonia in right middle lobe and right lower lobe, small right pleural effusion, mild emphysema. Echo from 03/02/2024 reportedly showed normal LV systolic function. Review of Systems 2 Review of Systems: General: Positive for fatigue Psychological: Positive for anxiety Ophthalmic: negative for loss of vision ENT: Negative for epistaxis, headaches Allergy and immunology: Negative for hives, nasal congestion Hematologic and lymphatic: Negative for overt bleeding problems Endocrine: Negative for hot flashes, palpitations Respiratory: Negative for cough, hemoptysis Cardiovascular: Positive for dyspnea, leg swelling Gastrointestinal: Negative for abdominal pain, nausea, vomiting, hematochezia Musculoskeletal: Positive for joint pain, leg swelling Neurological: Positive for weakness Dermatological: Positive for significant discoloration in the lower extremities [facility] Past Medical History Medical History Kidney stones Diastolic dysfunction Vitamin D deficiency Chronic kidney disease, stage 3 Deep venous thrombosis COPD mixed type Peripheral vascular disease Pancreatitis Right kidney mass Chronic diarrhea Umbilical hernia Anxiety and depression Gastroesophageal reflux disease Hypertension Small bowel obstruction Rheumatoid arthritis Chronic venous stasis dermatitis Closed fracture of greater tuberosity of humerus Fracture of neck of humerus Hypothyroidism (acquired) Depression Surgical History Surgical History History of cataract extraction with lens replacement (2003) History of evacuation of hematoma (2013) lateral thigh History of section X1 History of cholecystectomy Family History Family History Sibling Patient's sister is in good health Mother Diabetes mellitus, Onset Age: 41 Father Heart attack Cardiovascular disease Social History Social History Social History: Emergency contact: Karuna Stone, water vessel captain ([phone]). Code status: Do not resuscitate. Smoking packs per day: 2 Smoking cigarettes per day: 40.0 Years smoked: 50 Smoking pack-years: 100.00 Smoking status: Former smoker Second hand tobacco smoke exposure: No Alcohol intake: never Substance use: never Substance use type: does not use Do You Feel Safe in your Home?: Yes Lack of Transportation: No Lack of Food: Never True Current Housing: I Have Housing Concerned About Future Housing: No Difficulty Paying Gas/Electric Bills: No Difficulty Paying for Meds: No Currently Unemployed: No Education: Decline to Answer Difficulty w/ Childcare or Family Care: No Living arrangements: with friend(s) Additional living arrangements comments: Lives with water vessel captain/friend, Karuna. 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 Spiritual care concerns: No Meds Home Medications and Allergies Home Medications ?Medication ?Instructions ?Recorded ?Confirmed ?Type pantoprazole 40 mg tablet,delayed 40 mg PO BID 30 days #180 tabs 04/12/23 12/28/24 Rx release levothyroxine 150 mcg tablet 150 mcg PO DAILY 08/31/23 12/28/24 History meclizine 25 mg tablet 25 mg PO Q8H PRN Dizziness 08/31/23 12/28/24 History melatonin 10 mg tablet 10 mg PO HS PRN Insomnia 08/31/23 12/28/24 History donepezil 5 mg tablet 10 mg PO DAILY 03/01/24 12/28/24 History atorvastatin 20 mg tablet 20 mg PO QPM 11/07/24 12/28/24 History losartan 50 mg tablet 50 mg PO QHS 11/07/24 12/28/24 History cholestyramine (with sugar) 4 gram 1 ea PO DAILY@1000 #14 ea 11/19/24 12/28/24 Rx powder for susp in a packet loperamide 2 mg capsule 2 mg PO PRN PRN Diarrhea #14 caps 11/19/24 12/28/24 Rx tramadol 50 mg tablet 50 mg PO Q4H PRN Pain Rated 6 Or 11/19/24 12/28/24 Rx Greater #10 tabs calcium carbonate (Oyster Shell 1,000 mg (2 x 500 mg calcium 12/15/24 12/28/24 Rx Calcium 500) (1,250 mg)) PO 1000,1400,1800 #30 tabs ergocalciferol (vitamin D2) 1,250 1,250 mcg PO WEEKLY #7 caps 12/15/24 12/28/24 Rx mcg (50,000 unit) capsule (Vitamin D2) guaifenesin 600 mg tablet, 600 mg PO Q12HR #30 tabs 12/15/24 12/28/24 Rx extended release 12 hr (Mucus Relief ER) magnesium oxide 400 mg (241.3 mg 200 mg (1/2 x 400 mg (241.3 mg 12/15/24 12/28/24 Rx magnesium) tablet magnesium)) PO DAILY #10 tabs Allergies Allergy/AdvReac Type Severity Reaction Status Date / Time Penicillins Allergy Severe Hives Verified 12/09/24 10:28 Vital Signs Vital Signs - 24 hr 12/28/24 15:15 12/28/24 15:50 12/28/24 15:51 Temperature 36.7 C Pulse Rate 75 47 L 51 L Respiratory Rate 20 13 Blood Pressure 111/57 L 95/67 L Pulse Oximetry 100 100 Oxygen Delivery Room Air 12/28/24 15:52 12/28/24 17:04 12/28/24 18:49 Temperature Pulse Rate 62 70 Respiratory Rate 21 H 16 Blood Pressure 107/66 118/70 Pulse Oximetry 100 99 100 Oxygen Delivery Room Air 12/28/24 20:36 12/28/24 21:00 12/28/24 21:30 Temperature 36.6 C Pulse Rate 66 62 Respiratory Rate 16 Blood Pressure 131/59 L Pulse Oximetry 98 Oxygen Delivery Room Air 12/28/24 22:00 12/28/24 23:32 12/29/24 00:00 Temperature 36.6 C Pulse Rate 70 52 L Respiratory Rate 20 Blood Pressure 126/67 Pulse Oximetry 100 Oxygen Delivery Room Air 12/29/24 00:00 12/29/24 02:00 12/29/24 04:00 Temperature Pulse Rate 49 L 69 Respiratory Rate Blood Pressure Pulse Oximetry Oxygen Delivery Room Air 12/29/24 04:00 12/29/24 04:00 12/29/24 06:00 Temperature 36.3 C L Pulse Rate 48 L 50 L 47 L Respiratory Rate 16 Blood Pressure 116/63 Pulse Oximetry 98 Oxygen Delivery 12/29/24 07:26 Temperature 36.3 C L Pulse Rate 49 L Respiratory Rate 18 Blood Pressure 130/73 Pulse Oximetry 100 Oxygen Delivery Exam 2 Narrative: PHYSICAL EXAMINATION: GENERAL: Weak appearing elderly female, no acute distress MENTAL STATUS: affect appropriate to mood EYES: Extraocular movements intact, no pallor EARS: External ears appear normal, hearing grossly normal NOSE: Normal and patent, no discharge MOUTH: Mucous membranes moist, tongue normal NECK: Supple, no JVD CHEST: Decreased breath sounds, decreased effort HEART: Bradycardia, regular rhythm at present ABDOMEN: Soft, nontender NEUROLOGICAL: Alert, oriented, normal speech MUSCULOSKELETAL: No major deformity, no amputation EXTREMITIES: Mild pedal edema, no clubbing, no cyanosis SKIN: Scars in the lower extremities, bandage left lower extremity PSYCHIATRIC: Slightly anxious Results Labs and Meds 12/29/24 04:00 12/29/24 04:00 Lab results: Cardiac Enzymes 12/28/24 12/28/24 12/29/24 Range/Units 15:47 23:27 04:00 AST 28 20 (14-36) U/L Troponin I 0.107 H* 0.118 H* (0.000-0.034) ng/mL Coagulation 12/28/24 Range/Units 15:47 PT 13.9 (11.1-14.7) Seconds APTT 28.2 (22.3-36.8) Seconds CBC 12/28/24 12/29/24 Range/Units 15:47 04:00 WBC 10.9 H 7.8 (4.5-10.0) K/mm3 RBC 3.17 L 2.69 L (4.2-5.4) M/mm3 Hgb 9.5 L 8.0 L (12.0-15.0) g/dL Hct 28.6 L 24.5 L (37.0-47.0) % Plt Count 199 156 (150-375) k/mm3 Lymph # (Auto) 0.50 L 1.36 (0.9-3.2) K/mm3 [place] # (Auto) 0.4 0.3 (0.1-0.6) K/mm3 Eos # (Auto) 0.0 0.0 (0-0.3) K/mm3 Baso # (Auto) 0.0 0.0 (0.0-0.1) K/mm3 Comprehensive Metabolic Panel 12/28/24 12/28/24 12/29/24 Range/Units 15:47 23:27 04:00 Sodium 142 142 141 (137-145) mmol/L Potassium 2.6 L* 3.3 L 4.0 (3.4-5.0) mmol/L Chloride 106 110 H 111 H (98-107) mmol/L Carbon Dioxide 24 26 25 (22-30) mmol/L BUN 25 H 23 H 20 H (7-17) mg/dL Creatinine 1.57 H 1.41 H 1.32 H (0.7-1.0) mg/dL Glucose 95 93 84 (65-110) mg/dL Calcium 7.9 L 7.9 L 7.6 L (8.4-10.2) mg/dL AST 28 20 (14-36) U/L ALT 20 14 (6-35) U/L Alkaline Phosphatase 77 76 (38-126) U/L Total Protein 6.0 L 5.0 L (6.3-8.2) g/dL Albumin 2.6 L 2.4 L (3.5-5.1) g/dL Intake and Output 12/28/24 12/29/24 12/29/24 23:59 07:59 15:59 Intake Total 100 1030 Output Total 400 Balance 100 630 Intake: IV 100 Albumin Human 25% 25 gm/100 ml 100 100 ml @ 60 mls/hr IVPB ONCE ONE Rx#:[id number] Oral 1030 Output: Urine 400 Other: # Incontinent Voids 1 Number of Bowel Movements Today 1 Patient Weight 12/29/24 23:59 Weight 50.8 kg
[2024-12-29] MEDS: ALBUMIN HUMAN 25% 25 GM/100 ML 100 ML IVPB (10:02)
[2024-12-29] MEDS: guaiFENesin 12 HR 600 MG TABCR PO ×2 (10:03→21:08)
[2024-12-29] MEDS: APIXABAN 5 MG TABLET PO ×2 (10:03→21:08)
[2024-12-29] MEDS: MAGNESIUM OXIDE 200 MG TABLET PO (10:03)
[2024-12-29 10:07] LABS: Iron 43 ug/dL (37-170)
[2024-12-29] MEDS: CALCIUM CARBONATE (OSCAL) 500 MG TABLET 1000 MG PO ×3 (10:16→18:15)
[2024-12-29 10:17] LABS: Percent Iron Saturation 29 % (20-50)
[2024-12-29 10:33] LABS: Troponin I 0.079 ng/mL (0.000-0.034)
[2024-12-29 10:39] LABS: Thyroid Stimulating Hormone Reflex 0.405 uIU/mL (0.465-4.68)
--- NOTE | 2024-12-29 13:25 | PCSTNOTE ---
Please refer to the Bedside Swallow Evaluation in the EMR. Please note, silent aspiration cannot be ruled out at bedside.
--- NOTE | 2024-12-29 15:09 | PM.IMPN ---
Progress Note: A&P Assessment and Plan (1) Acute kidney injury: Code(s): N17.9 - Acute kidney failure, unspecified Status: Acute (2) Pneumonia: Code(s): J18.9 - Pneumonia, unspecified organism Status: Acute (3) Deep vein thrombosis of left lower extremity: Code(s): I82.402 - Acute embolism and thrombosis of unspecified deep veins of left lower extremity Status: Acute (4) Hypokalemia: Code(s): E87.6 - Hypokalemia Status: Resolved (5) Hypomagnesemia: Code(s): E83.42 - Hypomagnesemia Status: Resolved (6) Diastolic dysfunction: Code(s): I51.89 - Other ill-defined heart diseases Status: Acute (7) Chronic diarrhea: Code(s): K52.9 - Noninfective gastroenteritis and colitis, unspecified Status: Chronic (8) Normocytic anemia: Code(s): D64.9 - Anemia, unspecified Status: Chronic Plan Deirdre, improved Cr 1.32 from 1.57 Continue IVF monitor Pneumonia CTA chest negative for PE but showed RML and RLL Continue Rocephin, Doxycycline and Flagyl MRSA negative, Blood and sputum cultures pending ST recced soft diet monitor Symptomatic bradycardia HR 47 EKG showed Bradycardia with occasional supraventricular premature complexes ECHO pending May need pacemaker since patient is bradycardia even with TSH showing hyperthyroid state Hypothyroidism with elevated T4 and TSH Levothyroxine on hold and restart tomorrow at 100mcg monitor DVT venous doppler positive started on Eliquis Hypokalemia and Hypomagnesia resolved monitor Elevated troponin downtrending Troponin 0.118 to 0.079 monitor Anemia Hb 8.0, isat 29, ferritin 263 Iron replete stable Diastolic CHF No edema on CT chest ECHO pending monitor DVT prophylaxis on Eliquis Subjective Date/time seen: 12/29/24 15:09 Interval history: Comfortable at bedside No overnight event ST reccs soft diet Review of Systems Review of Systems: 12 systems were reviewed and are negative except for as per HPI. Exam Narrative: General: Chronically ill-appearing elderly female in the semi-Perez position in bed. Weight: 50.9 kg. BMI: 21.2. HEENT: PERRL, EOMI. Sclera anicteric. Conjunctiva mildly injected. Tacky mucous membranes. Neck: Supple. Respiratory: Lungs are clear to auscultation bilaterally. Cardiovascular: Regular rate and rhythm with S1-S2. Gastrointestinal: Abdomen is soft, nontender, and nondistended with positive bowel sounds. Skin: Warm and dry. Scattered bruising throughout the lower extremities with a skin tear on the left lower leg. There are few blisters on the lower extremities as well with some weeping. Toenails are thickened yellow. Extremities: No cyanosis or clubbing. Pitting edema of the lower legs and feet. Pedal pulses diminished but palpable. Negative Chacho sign bilaterally. Neurological: Alert. Cranial nerves 2-12 are grossly intact. Generalized weakness without gross focal findings. Psychiatric: Cooperative with appropriate mood. Objective Data Vital Signs Vital Signs: Vital Signs - 24 hr 12/28/24 15:15 12/28/24 15:50 12/28/24 15:51 Temperature 98.0 F Pulse Rate 75 47 L 51 L Respiratory Rate 20 13 Blood Pressure 111/57 L 95/67 L Pulse Oximetry 100 100 Oxygen Delivery Room Air 12/28/24 15:52 12/28/24 17:04 12/28/24 18:49 Temperature Pulse Rate 62 70 Respiratory Rate 21 H 16 Blood Pressure 107/66 118/70 Pulse Oximetry 100 99 100 Oxygen Delivery Room Air 12/28/24 20:36 12/28/24 21:00 12/28/24 21:30 Temperature 98 F Pulse Rate 66 62 Respiratory Rate 16 Blood Pressure 131/59 L Pulse Oximetry 98 Oxygen Delivery Room Air 12/28/24 22:00 12/28/24 23:32 12/29/24 00:00 Temperature 97.9 F Pulse Rate 70 52 L Respiratory Rate 20 Blood Pressure 126/67 Pulse Oximetry 100 Oxygen Delivery Room Air 12/29/24 00:00 12/29/24 02:00 12/29/24 04:00 Temperature Pulse Rate 49 L 69 Respiratory Rate Blood Pressure Pulse Oximetry Oxygen Delivery Room Air 12/29/24 04:00 12/29/24 04:00 12/29/24 06:00 Temperature 97.3 F L Pulse Rate 48 L 50 L 47 L Respiratory Rate 16 Blood Pressure 116/63 Pulse Oximetry 98 Oxygen Delivery 12/29/24 07:26 12/29/24 08:00 12/29/24 10:00 Temperature 97.4 F L Pulse Rate 49 L 44 L 66 Respiratory Rate 18 Blood Pressure 130/73 Pulse Oximetry 100 Oxygen Delivery 12/29/24 11:28 12/29/24 12:00 Temperature 97.9 F Pulse Rate 59 L 47 L Respiratory Rate 14 Blood Pressure 113/56 L Pulse Oximetry 98 Oxygen Delivery Intake/Output Intake/Output: Intake & Output 12/26/24 12/27/24 12/28/24 12/29/24 23:59 23:59 23:59 23:59 Intake Total 100 1510 Output Total 400 Balance 100 1110 Meds/Results Medications: Active Medications Generic Name Dose Route Start Last Admin Trade Name Freq PRN Reason Stop Dose Admin Acetaminophen 650 mg 12/28/24 18:28 Acetaminophen 325 Mg Tablet PO Q4H PRN Mild Pain (1-3) or Fever Apixaban 5 mg 12/28/24 21:00 12/29/24 10:03 Apixaban 5 Mg Tablet PO 5 mg Q12HR SALMA Administration Atorvastatin Calcium 20 mg 12/29/24 18:00 Atorvastatin 20 Mg Tablet PO QPM SALMA Calcium Carbonate 1,000 mg 12/29/24 10:00 12/29/24 10:16 Calcium Carbonate (Oscal) 500 Mg Tablet PO 1,000 mg 1000,1400,1800 SALMA Administration Donepezil HCl 10 mg 12/29/24 09:00 Donepezil Hcl 5 Mg Tablet PO DAILY SALMA Doxycycline Hyclate 100 mg 12/29/24 00:15 12/29/24 10:03 Doxycycline Hyclate 100 Mg Tablet PO 100 mg Q12HR SALMA Administration Guaifenesin 600 mg 12/29/24 09:00 12/29/24 10:03 Guaifenesin 12 Hr 600 Mg Tabcr PO 600 mg Q12HR SALMA Administration Ceftriaxone Sodium 1 gm in 50 mls @ 100 mls/hr 12/29/24 00:00 12/29/24 00:52 Rocephin 1 Gm/Ns 50 Ml IVPB 100 mls/hr Q24H SALMA Administration Levothyroxine Sodium 150 mcg 12/29/24 06:30 12/29/24 06:07 Levothyroxine Sodium 150 Mcg Tablet PO 150 mcg DAILY@0630 SALMA Administration Loperamide HCl 2 mg 12/28/24 23:07 12/29/24 00:52 Loperamide Hcl 2 Mg Capsule PO 2 mg PRN PRN Administration Diarrhea Magnesium Oxide 200 mg 12/29/24 09:00 12/29/24 10:03 Magnesium Oxide 200 Mg Tablet PO 200 mg DAILY SALMA Administration Melatonin 10 mg 12/28/24 23:07 12/29/24 00:52 Melatonin 5 Mg Tablet PO 10 mg HS PRN Administration Insomnia Ondansetron HCl 4 mg 12/28/24 18:28 Ondansetron Inj 4 Mg/2 Ml Vial IV PUSH Q4H PRN Nausea Perflutren Lipid Microsphere 0 ml 12/28/24 18:39 Perflutren Lipid Microspheres 1.5 Ml Vial Diluted To 10 Ml Total Volume IV PUSH 12/31/24 18:39 ONCE PRN adequate visualization Protocol Tramadol HCl 50 mg 12/28/24 23:07 Tramadol Hcl (*Crx) 50 Mg Tablet PO Q4H PRN Pain Rated 6 Or Greater Vancomycin HCl 1 each 12/28/24 18:28 Vancomycin For Acute Kidney Injury IVPB PRN PRN Vancomycin Protocol Radiology Results: ITS Impressions Venous Doppler Study 12/28/24 16:21 IMPRESSION: 1. Deep vein thrombosis involving the left peroneal veins. Chest X-Ray 12/28/24 16:36 IMPRESSION: 1. Airspace opacities at the lung bases, consistent with atelectasis versus pneumonia. 2. Small right pleural effusion. Chest CTA 12/28/24 17:53 IMPRESSION: 1. No pulmonary embolus. 2. Pneumonia in right middle lobe and right lower lobe. 3. Small right pleural effusion. 4. Mild emphysema. Renal Ultrasound 12/29/24 12:47 IMPRESSION: 1. Mild atrophy of the kidneys. No hydronephrosis. Labs Labs: Laboratory Results - last 24 hr 12/28/24 12/28/24 12/28/24 15:47 19:09 19:31 WBC 10.9 H RBC 3.17 L Hgb 9.5 L Hct 28.6 L MCV 90.2 MCH 30.0 MCHC 33.2 RDW 18.9 H Plt Count 199 MPV 12.3 H Immature Gran % (Auto) 0.4 Neut % (Auto) 91.4 H Lymph % (Auto) 4.6 L [place] % (Auto) 3.5 Eos % (Auto) 0.0 Baso % (Auto) 0.1 L Lymph # (Auto) 0.50 L [place] # (Auto) 0.4 Eos # (Auto) 0.0 Baso # (Auto) 0.0 Abs Immat Gran (auto) 0.04 H Absolute Neuts (auto) 10.0 H Absolute Nucleated RBC 0.000 Nucleated RBC % 0.0 PT 13.9 INR 1.0 APTT 28.2 D-Dimer 6.81 H Sodium 142 Potassium 2.6 L* Chloride 106 Carbon Dioxide 24 Anion Gap 12 BUN 25 H Creatinine 1.57 H Estim Creat Clear Calc 17 Estimated GFR 31 L Glucose 95 Lactic Acid 2.1 H Calcium 7.9 L Magnesium 1.3 L Iron TIBC % Saturation Ferritin Total Bilirubin 0.6 AST 28 ALT 20 Alkaline Phosphatase 77 Troponin I 0.107 H* NT-Pro-B Natriuret Pep 8270 H Total Protein 6.0 L Albumin 2.6 L TSH (Reflex) Free T4 Nasal MRSA (PCR) Not detected C. difficile (PCR) Influenza A (RT-PCR) Negative Influenza B (RT-PCR) Negative RSV (RT-PCR) Negative SARS-CoV-2 RNA (RT-PCR) Negative 12/28/24 12/29/24 12/29/24 23:27 02:22 04:00 WBC 7.8 RBC 2.69 L Hgb 8.0 L Hct 24.5 L MCV 91.1 MCH 29.7 MCHC 32.7 RDW 19.0 H Plt Count 156 MPV 12.0 H Immature Gran % (Auto) 0.4 Neut % (Auto) 77.9 H Lymph % (Auto) 17.5 L [place] % (Auto) 4.0 Eos % (Auto) 0.1 Baso % (Auto) 0.1 L Lymph # (Auto) 1.36 [place] # (Auto) 0.3 Eos # (Auto) 0.0 Baso # (Auto) 0.0 Abs Immat Gran (auto) 0.03 Absolute Neuts (auto) 6.1 Absolute Nucleated RBC 0.000 Nucleated RBC % 0.0 PT INR APTT D-Dimer Sodium 142 141 Potassium 3.3 L 4.0 Chloride 110 H 111 H Carbon Dioxide 26 25 Anion Gap 6 5 BUN 23 H 20 H Creatinine 1.41 H 1.32 H Estim Creat Clear Calc 20 21 Estimated GFR 36 L 38 L Glucose 93 84 Lactic Acid 1.5 Calcium 7.9 L 7.6 L Magnesium 1.3 L 2.3 Iron TIBC % Saturation Ferritin Total Bilirubin 0.6 AST 20 ALT 14 Alkaline Phosphatase 76 Troponin I 0.118 H* NT-Pro-B Natriuret Pep Total Protein 5.0 L Albumin 2.4 L TSH (Reflex) Free T4 Nasal MRSA (PCR) C. difficile (PCR) Negative Influenza A (RT-PCR) Influenza B (RT-PCR) RSV (RT-PCR) SARS-CoV-2 RNA (RT-PCR) 12/29/24 09:12 WBC RBC Hgb Hct MCV MCH MCHC RDW Plt Count MPV Immature Gran % (Auto) Neut % (Auto) Lymph % (Auto) [place] % (Auto) Eos % (Auto) Baso % (Auto) Lymph # (Auto) [place] # (Auto) Eos # (Auto) Baso # (Auto) Abs Immat Gran (auto) Absolute Neuts (auto) Absolute Nucleated RBC Nucleated RBC % PT INR APTT D-Dimer Sodium Potassium Chloride Carbon Dioxide Anion Gap BUN Creatinine Estim Creat Clear Calc Estimated GFR Glucose Lactic Acid Calcium Magnesium Iron 43 TIBC 148 L % Saturation 29 Ferritin 263.00 Total Bilirubin AST ALT Alkaline Phosphatase Troponin I 0.079 H* NT-Pro-B Natriuret Pep Total Protein Albumin TSH (Reflex) 0.405 L Free T4 3.30 H Nasal MRSA (PCR) C. difficile (PCR) Influenza A (RT-PCR) Influenza B (RT-PCR) RSV (RT-PCR) SARS-CoV-2 RNA (RT-PCR) Quality VTE Prophylaxis VTE prophylaxis: pharmacologic ordered (she has been started on apixaban for left lower extremity DVT)
[2024-12-29] MEDS: SODIUM CHLORIDE 0.9% IV 1,000 ML 75 ML IV CONT (16:37)
[2024-12-29] MEDS: ATORVASTATIN 20 MG TABLET PO (16:37)
[2024-12-29] MEDS: metroNIDAZOLE 500 MG/ISO 100ML 500 MG/100 ML BAG 100 MG IVPB (16:37)
[2024-12-29 20:28] LABS: Influenza A QL RT-PCR Negative (Negative); Influenza B QL RT-PCR Negative (Negative); SARS-CoV-2 RNA PCR Negative (Negative)
--- NOTE | 2024-12-29 20:48 | PC.NURSE ---
This patient, Arielle Pittman, was transferred to [ 259 ] on 12/29/24 at 2040. Personal belongings sent with patient. Report given to [Anthony ]. Appropriate documentation sent with patient.
[2024-12-30] VITALS (9 sets, daily range): BP systolic 121–150; BP diastolic 60–75; PULSE 49–86; RESP 16–18; TEMP 36.5–37.6; O2SAT 94–99; BMI 21.2
[2024-12-30] MEDS: metroNIDAZOLE 500 MG/ISO 100ML 500 MG/100 ML BAG 100 MG IVPB ×4 (00:39→23:40)
[2024-12-30] MEDS: SODIUM CHLORIDE 0.9% IV 1,000 ML 75 ML IV CONT ×2 (06:00→23:14)
[2024-12-30 06:36] LABS: Basophils Percent Auto 0.2 % (0.2-1.2); Eosinophils Percent Auto 0.7 % (0-4.4); Hematocrit 25.7 % (37.0-47.0); Hemoglobin 8.3 g/dL (12.0-15.0); Immature Granulocyte Absolute 0.02 K/mm3 (0.00-0.031); Immature Granulocyte Percent A 0.3 % (0-0.5); Immature Platelet Fraction Pct 11.4 % (0.9-11.2); Lymphocytes Absolute Auto 1.64 K/mm3 (0.9-3.2); Lymphocytes Percent Auto 27.5 % (18.3-44.2); Mean Corpuscular HGB Conc 32.3 g/dl (32-36); Mean Corpuscular Hemoglobin 29.9 pg (26-34); Mean Corpuscular Volume 92.4 fl (80-100); Mean Platelet Volume 12.5 fl (7.4-10.4); Monocytes Absolute Auto 0.3 K/mm3 (0.1-0.6); Monocytes Percent Auto 4.5 % (2.6-8.5); Neutrophils Percent Auto 66.8 % (45.5-73.1); Platelet Count Result 192 k/mm3 (150-375); Red Blood Count 2.78 M/mm3 (4.2-5.4); Red Cell Distribution Width 19.5 % (11.5-14.5)
[2024-12-30 06:46] LABS: Lactic Acid Reflex 0.9 mmol/L (0.7-2.0)
[2024-12-30 06:49] LABS: Alanine Aminotransferase 12 U/L (6-35); Albumin Level 2.6 g/dL (3.5-5.1); Alkaline Phosphatase 73 U/L (38-126); Anion Gap 9 mmol/L (4-12); Aspartate Amino Transferase 17 U/L (14-36); Bilirubin,Total 0.7 mg/dL (0.2-1.3); Blood Urea Nitrogen 17 mg/dL (7-17); Carbon Dioxide 22 mmol/L (22-30); Chloride 108 mmol/L (98-107); Estimated CRCL calculation 26 ml/min; Estimated Glomerular Filt Rate 48; Glucose 68 mg/dL (65-110); Magnesium 1.8 mg/dL (1.6-2.3); Potassium 3.7 mmol/L (3.4-5.0); Sodium 139 mmol/L (137-145)
[2024-12-30 07:04] LABS: Troponin I 0.048 ng/mL (0.000-0.034)
[2024-12-30] MEDS: MAGNESIUM OXIDE 200 MG TABLET PO (09:50)
[2024-12-30] MEDS: guaiFENesin 12 HR 600 MG TABCR PO ×2 (09:50→20:29)
[2024-12-30] MEDS: CALCIUM CARBONATE (OSCAL) 500 MG TABLET 1000 MG PO ×2 (09:50→17:39)
[2024-12-30] MEDS: DOXYCYCLINE HYCLATE 100 MG TABLET PO ×2 (09:50→20:29)
[2024-12-30] MEDS: APIXABAN 5 MG TABLET PO ×2 (09:50→20:29)
--- NOTE | 2024-12-30 10:05 | PCOTNOTE ---
Attempted OT evaluation, patient declined at this time. Will follow.
--- NOTE | 2024-12-30 12:27 | P.PNIM_ITS ---
Progress Note: A&P Assessment and Plan (1) Acute kidney injury: Code(s): N17.9 - Acute kidney failure, unspecified Status: Acute (2) Pneumonia: Code(s): J18.9 - Pneumonia, unspecified organism Status: Acute (3) Deep vein thrombosis of left lower extremity: Code(s): I82.402 - Acute embolism and thrombosis of unspecified deep veins of left lower extremity Status: Acute (4) Hypokalemia: Code(s): E87.6 - Hypokalemia Status: Resolved (5) Hypomagnesemia: Code(s): E83.42 - Hypomagnesemia Status: Resolved (6) Diastolic dysfunction: Code(s): I51.89 - Other ill-defined heart diseases Status: Acute (7) Chronic diarrhea: Code(s): K52.9 - Noninfective gastroenteritis and colitis, unspecified Status: Chronic (8) Normocytic anemia: Code(s): D64.9 - Anemia, unspecified Status: Chronic Plan Deirdre, resolving Cr 1.08 from 1.57 s/p IVF monitor Pneumonia CTA chest negative for PE but showed RML and RLL day Rocephin, Doxycycline and Flagyl MRSA negative, Blood and sputum cultures pending ST recced soft diet monitor Symptomatic bradycardia HR 47 EKG showed Bradycardia with occasional supraventricular premature complexes ECHO pending May need pacemaker since patient is bradycardia even with TSH showing hyperthyroid state Hypothyroidism with elevated T4 and and suppressed TSH Levothyroxine on hold and restart tomorrow at 100mcg (was on 150mcg) monitor DVT venous doppler positive started on Eliquis Hypokalemia and Hypomagnesia resolved monitor Elevated troponin downtrending Troponin 0.118 to 0.079 to 0.0048 monitor Anemia Hb 8.0, isat 29, ferritin 263 Iron replete stable Diastolic CHF No edema on CT chest ECHO pending monitor DVT prophylaxis on Eliquis Subjective Date/time seen: 12/30/24 12:27 Interval history: Comfortable at bedside No overnight event Review of Systems Review of Systems: 12 systems were reviewed and are negativ e except for as per HPI. Exam Narrative: General: Chronically ill-appearing elderly female in the semi-Perez position in bed. Weight: 50.9 kg. BMI: 21.2. HEENT: PERRL, EOMI. Sclera anicteric. Conjunctiva mildly injected. Tacky mucous membranes. Neck: Supple. Respiratory: Lungs are clear to auscultation bilaterally. Cardiovascular: Regular rate and rhythm with S1-S2. Gastrointestinal: Abdomen is soft, nontender, and nondistended with positive bowel sounds. Skin: Warm and dry. Scattered bruising throughout the lower extremities with a skin tear on the left lower leg. There are few blisters on the lower extremities as well with some weeping. Toenails are thickened yellow. Extremities: No cyanosis or clubbing. Pitting edema of the lower legs and feet. Pedal pulses diminished but palpable. Negative Chacho sign bilaterally. Neurological: Alert. Cranial nerves 2-12 are grossly intact. Generalized weakness without gross focal findings. Psychiatric: Cooperative with appropriate mood. Objective Data Vital Signs Vital Signs: Vital Signs - 24 hr 12/29/24 14:00 12/29/24 16:00 12/29/24 16:00 Temperature 98.0 F Pulse Rate 57 L 60 57 L Respiratory Rate 14 Blood Pressure 117/72 Pulse Oximetry 98 Oxygen Delivery 12/29/24 20:00 12/29/24 21:00 12/29/24 21:15 Temperature Pulse Rate 57 L 57 L 50 L Respiratory Rate 14 Blood Pressure Pulse Oximetry 98 Oxygen Delivery Room Air 12/30/24 00:04 12/30/24 04:00 12/30/24 06:07 Temperature 97.7 F Pulse Rate 53 L 49 L 54 L Respiratory Rate 18 Blood Pressure 150/72 H Pulse Oximetry 94 Oxygen Delivery 12/30/24 09:50 12/30/24 09:50 Temperature Pulse Rate 55 L Respiratory Rate Blood Pressure Pulse Oximetry Oxygen Delivery Room Air Intake/Output Intake/Output: Intake & Output 12/27/24 12/28/24 12/29/24 12/30/24 23:59 23:59 23:59 23:59 Intake Total 100 2330 1460 Output Total 400 Balance 100 1930 1460 Meds/Results Medications: Active Medications Generic Name Dose Route Start Last Admin Trade Name Freq PRN Reason Stop Dose Admin Acetaminophen 650 mg 12/28/24 18:28 Acetaminophen 325 Mg Tablet PO Q4H PRN Mild Pain (1-3) or Fever Apixaban 5 mg 12/28/24 21:00 12/30/24 09:50 Apixaban 5 Mg Tablet PO 5 mg Q12HR SALMA Administration Atorvastatin Calcium 20 mg 12/29/24 18:00 12/29/24 16:37 Atorvastatin 20 Mg Tablet PO 20 mg QPM SALMA Administration Calcium Carbonate 1,000 mg 12/29/24 10:00 12/30/24 09:50 Calcium Carbonate (Oscal) 500 Mg Tablet PO 1,000 mg 1000,1400,1800 SALMA Administration Cholestyramine Resin 4 gm 12/30/24 10:00 12/30/24 09:59 Cholestyramine (W/ Sugar) 4 Gm Powd.Pack PO Not Given DAILY@1000 [facility] Donepezil HCl 10 mg 12/29/24 09:00 Donepezil Hcl 5 Mg Tablet PO DAILY [facility] Doxycycline Hyclate 100 mg 12/29/24 00:15 12/30/24 09:50 Doxycycline Hyclate 100 Mg Tablet PO 100 mg Q12HR SALMA Administration Guaifenesin 600 mg 12/29/24 09:00 12/30/24 09:50 Guaifenesin 12 Hr 600 Mg Tabcr PO 600 mg Q12HR SALMA Administration Ceftriaxone Sodium 1 gm in 50 mls @ 100 mls/hr 12/29/24 00:00 12/29/24 23:28 Rocephin 1 Gm/Ns 50 Ml IVPB 100 mls/hr Q24H SALMA Administration Metronidazole 500 mg in 100 mls @ 100 mls/hr 12/29/24 16:00 12/30/24 09:51 Flagyl 500 Mg/Iso Soln 100 Ml IVPB 100 mls/hr Q8H SALMA Administration Sodium Chloride 1,000 mls @ 75 mls/hr 12/29/24 15:25 12/30/24 06:00 Normal Saline Iv IV CONT 75 mls/hr .[id number] SALMA Administration Loperamide HCl 2 mg 12/28/24 23:07 12/29/24 00:52 Loperamide Hcl 2 Mg Capsule PO 2 mg PRN PRN Administration Diarrhea Losartan Potassium 50 mg 12/30/24 21:00 Losartan Potassium 50 Mg Tablet PO QHS SALMA Magnesium Oxide 200 mg 12/29/24 09:00 12/30/24 09:50 Magnesium Oxide 200 Mg Tablet PO 200 mg DAILY SALMA Administration Meclizine HCl 25 mg 12/30/24 07:36 Meclizine Hcl 25 Mg Tablet PO Q8H PRN Dizziness Melatonin 10 mg 12/28/24 23:07 12/29/24 00:52 Melatonin 5 Mg Tablet PO 10 mg HS PRN Administration Insomnia Ondansetron HCl 4 mg 12/28/24 18:28 Ondansetron Inj 4 Mg/2 Ml Vial IV PUSH Q4H PRN Nausea Perflutren Lipid Microsphere 0 ml 12/28/24 18:39 Perflutren Lipid Microspheres 1.5 Ml Vial Diluted To 10 Ml Total Volume IV PUSH 12/31/24 18:39 ONCE PRN adequate visualization Protocol Tramadol HCl 50 mg 12/28/24 23:07 Tramadol Hcl (*Crx) 50 Mg Tablet PO Q4H PRN Pain Rated 6 Or Greater Radiology Results: ITS Impressions Venous Doppler Study 12/28/24 16:21 IMPRESSION: 1. Deep vein thrombosis involving the left peroneal veins. Chest X-Ray 12/28/24 16:36 IMPRESSION: 1. Airspace opacities at the lung bases, consistent with atelectasis versus pneumonia. 2. Small right pleural effusion. Chest CTA 12/28/24 17:53 IMPRESSION: 1. No pulmonary embolus. 2. Pneumonia in right middle lobe and right lower lobe. 3. Small right pleural effusion. 4. Mild emphysema. Renal Ultrasound 12/29/24 12:47 IMPRESSION: 1. Mild atrophy of the kidneys. No hydronephrosis. Labs Labs: Laboratory Results - last 24 hr 12/28/24 12/30/24 18:15 05:51 WBC 6.0 RBC 2.78 L Hgb 8.3 L Hct 25.7 L MCV 92.4 MCH 29.9 MCHC 32.3 RDW 19.5 H Plt Count 192 MPV 12.5 H Immature Gran % (Auto) 0.3 Neut % (Auto) 66.8 Lymph % (Auto) 27.5 [place] % (Auto) 4.5 Eos % (Auto) 0.7 Baso % (Auto) 0.2 Lymph # (Auto) 1.64 [place] # (Auto) 0.3 Eos # (Auto) 0.0 Baso # (Auto) 0.0 Abs Immat Gran (auto) 0.02 Absolute Neuts (auto) 4.0 Absolute Nucleated RBC 0.000 Nucleated RBC % 0.0 % Immature Plt Fraction 11.4 H Sodium 139 Potassium 3.7 Chloride 108 H Carbon Dioxide 22 Anion Gap 9 BUN 17 Creatinine 1.08 H Estim Creat Clear Calc 26 Estimated GFR 48 L Glucose 68 Lactic Acid 0.9 Calcium 8.0 L Magnesium 1.8 Total Bilirubin 0.7 AST 17 ALT 12 Alkaline Phosphatase 73 Troponin I 0.048 H* Total Protein 6.0 L Albumin 2.6 L Influenza A (RT-PCR) Negative Influenza B (RT-PCR) Negative SARS-CoV-2 RNA (RT-PCR) Negative Quality VTE Prophylaxis VTE prophylaxis: pharmacologic ordered (she has been started on apixaban for left lower extremity DVT)
[2024-12-30] MEDS: ATORVASTATIN 20 MG TABLET PO (17:39)
--- NOTE | 2024-12-30 18:39 | ECHO_ITS ---
Patient Info Name: Arielle Pittman Age: 84 years : 1940 Gender: Female Ht: 61 in Wt: 111 lbs BSA: 1.47 m2 HR: 54 bpm BP: 150 / 72 mmHg Technical Quality: Fair Exam Date: 12/30/2024 1:57 PM Exam Location: Echo Lab Patient Status: Inpatient Admit Date: 12/28/2024 Staff Ordering Physician: Paula Herron PA-C Mammographer: Sandy Hughes RDCS Attending Provider: Aden Mandel MD Referring Physician: Gopal ALBA; Exam Type: CA echo doppler color flow Study Info Indications - DIASTOLIC CHF - ELEV TROPONIN Complete two-dimensional, color flow and Doppler transthoracic echocardiogram is performed. Summary 1. Complete two-dimensional, color flow and Doppler transthoracic echocardiogram is performed. 2. Left ventricular systolic function is normal, estimated at 50-55%. 3. Left atrial chamber dimension is mildly enlarged. 4. There is mild mitral valve regurgitation. 5. There is mild mitral valve calcification. 6. There is mild tricuspid valve regurgitation. 7. Mild pulmonary hypertension, estimated pulmonary arterial systolic pressure is 44 mmHg. Left Ventricle Left ventricular chamber dimension is normal. Left ventricular systolic function is normal, estimated at 50-55%. There is no increased left ventricular wall thickness. Left ventricular septal wall motion is normal. The left ventricular diastolic function is abnormal. Right Ventricle Right ventricular chamber dimension is normal. Right ventricular systolic function is normal. Left Atria Left atrial chamber dimension is mildly enlarged. Right Atria Right atrial chamber dimension is normal. Aortic Valve The aortic valve is trileaflet. There is no aortic valve sclerosis. There is no aortic valve stenosis. There is no aortic valve regurgitation. There is mild aortic valve calcification. Pulmonic Valve The pulmonic valve is normal. There is no pulmonic valve stenosis. There is no pulmonic regurgitation. Mitral Valve The mitral valve has normal leaflets. There is no mitral valve stenosis. There is mild mitral valve regurgitation. There is mild mitral valve calcification. Tricuspid Valve The tricuspid valve leaflets are normal. There is no significant tricuspid valve stenosis. There is mild tricuspid valve regurgitation. Mild pulmonary hypertension, estimated pulmonary arterial systolic pressure is 44 mmHg. Pericardium/Pleural The pericardium appears normal. There is no pericardial effusion. Inferior Vena Cava Normal inferior vena cava with <50% collapse upon inspiration consistent with Empty right atrial pressure, 10 mmHg. Aorta The aortic root size at the sinus of Valsalva is normal. The prox ascending aorta size is normal. Left Ventricular Outflow Tract Name Value Normal LVOT 2D LVOT Diameter 2.1 cm LVOT Doppler LVOT Peak Gradient 4 mmHg LVOT Mean Gradient 2 mmHg LVOT VTI 21 cm LVOT VTI/AV VTI Ratio 0.7 LVOT Stroke Volume 73 ml LVOT CO 4.4 l/min LVOT CI 3.0 l/min/m2 Pulmonic Valve Name Value Normal RVOT Doppler RVOT Peak Gradient 3 mmHg PV Doppler PV Peak Gradient 3 mmHg Mitral Valve Name Value Normal MV Doppler MV Peak Gradient 3 mmHg MV Mean Gradient 1 mmHg MV Decel [place] 496 cm/s2 MV PHT 35 ms MV Area (PHT) 6.2 cm2 4.0-5.0 MV Area (Cont Eq VTI) 2.5 cm2 MV Diastolic Function MV E Peak Velocity 61 cm/s MV A Peak Velocity 59 cm/s MV E/A 1.0 MV Decel Time 122 ms MV Annular TDI MV E/e' (Septal) 8.4 <=8.0 MV E/e' (Lateral) 4.6 <=8.0 MV E/e' (Average) 6.5 Tricuspid Valve Name Value Normal TV Regurgitation Doppler TR Peak Velocity 291 cm/s TR Peak Gradient 34 mmHg TR ERO (PISA) 0.10 cm2 Estimated PAP/RSVP RA Pressure 10 mmHg <=5 PA Systolic Pressure 44 mmHg <36 RV Systolic Pressure 44 mmHg <36 Aorta Name Value Normal Ascending Aorta Ao Root Diameter (MM) 3.6 cm Ao Root Diam Index (MM) 2.5 cm/m2 Aortic Valve Name Value Normal AV Doppler AV Peak Velocity 120 cm/s AV Peak Gradient 6 mmHg AV Mean Gradient 4 mmHg AV VTI 29 cm AV Area (Cont Eq VTI) 2.5 cm2 >=3.0 AV Area (Cont Eq Ran) 2.8 cm2 AV Regurgitation 2D LVOT Area 3.5 cm2 Ventricles Name Value Normal LV Dimensions 2D/MM IVS Diastolic Thickness (2D) 1.4 cm 0.6-1.0 LVID Diastole (2D) 4.9 cm 3.8-5.2 LVIW Diastolic Thickness (2D) 0.8 cm 0.6-0.9 LVID Systole (2D) 3.1 cm 2.2-3.5 LVOT Diameter 2.1 cm LV Mass (2D Cubed) 196.33 g 67.00-162.00 LV Mass Index (2D Cubed) 133 g/m2 43-95 Relative Wall Thickness (2D) 0.31 LV Fractional Shortening/Ejection Fraction 2D/MM LV Fractional Shortening (2D) 37 % 27-45 LV EF (2D Teicholz) 66 % 54-74 LV Diastolic Volume (4C MOD) 94 ml LV EF (4C MOD) 45 % LV Diastolic Volume (2C MOD) 73 ml LV EF (2C MOD) 63 % LV Diastolic Volume (BP MOD) 86 ml 46-106 LV Diastolic Volume Index (BP MOD) 58 ml/m2 29-61 LV Systolic Volume (BP MOD) 39 ml 14-42 LV Systolic Volume Index (BP MOD) 26 ml/m2 8-24 LV EF (BP MOD) 55 % 54-74 LV Diastolic Length (4C) 7.7 cm LV Systolic Length (4C) 6.3 cm LV Stroke Volume (4C MOD) 42 ml Atria Name Value Normal LA Dimensions LA Dimension (MM) 5.4 cm 2.7-3.8 LA Volume (4C A-L) 140 ml LA Volume (BP A-L) 112 ml RA Dimensions RA Area (4C) 20.4 cm2 <=18.0 Report Signatures
[2024-12-30] MEDS: LOPERAMIDE HCL 2 MG CAPSULE PO (20:29)
[2024-12-30] MEDS: LOSARTAN POTASSIUM 50 MG TABLET PO (20:29)
[2024-12-31] VITALS (9 sets, daily range): BP systolic 138–150; BP diastolic 58–68; PULSE 56–65; RESP 16–18; TEMP 36.6–37.4; O2SAT 95–97
[2024-12-31] MEDS: LOPERAMIDE HCL 2 MG CAPSULE PO ×2 (06:02→21:02)
[2024-12-31 06:05] LABS: Basophils Percent Auto 0.3 % (0.2-1.2); Eosinophils Percent Auto 0.6 % (0-4.4); Hematocrit 25.4 % (37.0-47.0); Hemoglobin 8.3 g/dL (12.0-15.0); Immature Granulocyte Absolute 0.02 K/mm3 (0.00-0.031); Immature Granulocyte Percent A 0.3 % (0-0.5); Lymphocytes Absolute Auto 1.98 K/mm3 (0.9-3.2); Lymphocytes Percent Auto 31.2 % (18.3-44.2); Mean Corpuscular HGB Conc 32.7 g/dl (32-36); Mean Corpuscular Hemoglobin 30.2 pg (26-34); Mean Corpuscular Volume 92.4 fl (80-100); Mean Platelet Volume 12.7 fl (7.4-10.4); Monocytes Absolute Auto 0.3 K/mm3 (0.1-0.6); Monocytes Percent Auto 4.9 % (2.6-8.5); Neutrophils Percent Auto 62.7 % (45.5-73.1); Platelet Count Result 192 k/mm3 (150-375); Red Blood Count 2.75 M/mm3 (4.2-5.4); Red Cell Distribution Width 19.3 % (11.5-14.5); White Blood Count 6.4 K/mm3 (4.5-10.0)
[2024-12-31 06:18] LABS: Alanine Aminotransferase 12 U/L (6-35); Albumin Level 2.3 g/dL (3.5-5.1); Alkaline Phosphatase 66 U/L (38-126); Anion Gap 6 mmol/L (4-12); Aspartate Amino Transferase 16 U/L (14-36); Bilirubin,Total 0.6 mg/dL (0.2-1.3); Blood Urea Nitrogen 16 mg/dL (7-17); Calcium 7.8 mg/dL (8.4-10.2); Carbon Dioxide 23 mmol/L (22-30); Chloride 110 mmol/L (98-107); Estimated CRCL calculation 26 ml/min; Estimated Glomerular Filt Rate 49; Glucose 75 mg/dL (65-110); Magnesium 1.5 mg/dL (1.6-2.3); Potassium 3.7 mmol/L (3.4-5.0); Sodium 139 mmol/L (137-145)
--- NOTE | 2024-12-31 07:50 | P.PNIM_ITS ---
Progress Note: A&P Assessment and Plan (1) Acute kidney injury: Code(s): N17.9 - Acute kidney failure, unspecified Status: Acute (2) Pneumonia: Code(s): J18.9 - Pneumonia, unspecified organism Status: Acute (3) Deep vein thrombosis of left lower extremity: Code(s): I82.402 - Acute embolism and thrombosis of unspecified deep veins of left lower extremity Status: Acute (4) Hypokalemia: Code(s): E87.6 - Hypokalemia Status: Resolved (5) Hypomagnesemia: Code(s): E83.42 - Hypomagnesemia Status: Resolved (6) Diastolic dysfunction: Code(s): I51.89 - Other ill-defined heart diseases Status: Acute (7) Chronic diarrhea: Code(s): K52.9 - Noninfective gastroenteritis and colitis, unspecified Status: Chronic (8) Normocytic anemia: Code(s): D64.9 - Anemia, unspecified Status: Chronic Plan Deirdre, Resolved Cr 1.06 from 1.57 s/p IVF monitor Pneumonia CTA chest negative for PE but showed RML and RLL day Rocephin, Doxycycline and Flagyl MRSA negative, Blood and sputum cultures pending ST recced soft diet monitor Symptomatic bradycardia HR 47 EKG showed Bradycardia with occasional supraventricular premature complexes ECHO pending Consult sales product manager for evaluation treatment Hypothyroidism with elevated T4 and and suppressed TSH Levothyroxine on hold and restart tomorrow at 100mcg (was on 150mcg) monitor DVT venous doppler positive started on Eliquis Hypokalemia and Hypomagnesia resolved monitor Elevated troponin downtrending Troponin 0.118 to 0.079 to 0.0048 monitor Anemia Hb 8.0, isat 29, ferritin 263 Iron replete stable Diastolic CHF No edema on CT chest ECHO pending monitor DVT prophylaxis on Eliquis Subjective Date/time seen: 12/31/24 07:50 Interval history: I saw and examined patient today, patient feels tired, shortness of breath with surgeon. Patient has a cough and scant phlegm. Exam Narrative: General: Chronically ill-appearing elderly female in the semi-Perez position in bed. Weight: 50.9 kg. BMI: 21.2. HEENT: PERRL, EOMI. Sclera anicteric. Conjunctiva mildly injected. Tacky mucous membranes. Neck: Supple. Respiratory: Lungs are clear to auscultation bilaterally. Cardiovascular: Regular rate and rhythm with S1-S2. Gastrointestinal: Abdomen is soft, nontender, and nondistended with positive bowel sounds. Skin: Warm and dry. Scattered bruising throughout the lower extremities with a skin tear on the left lower leg. There are few blisters on the lower extremities as well with some weeping. Toenails are thickened yellow. Extremities: No cyanosis or clubbing. Pitting edema of the lower legs and feet. Pedal pulses diminished but palpable. Negative Chacho sign bilaterally. Neurological: Alert. Cranial nerves 2-12 are grossly intact. Generalized weakness without gross focal findings. Psychiatric: Cooperative with appropriate mood. Objective Data Vital Signs Vital Signs: Vital Signs - 24 hr 12/30/24 09:50 12/30/24 09:50 12/30/24 12:00 Temperature Pulse Rate 55 L 86 Respiratory Rate Blood Pressure Pulse Oximetry Oxygen Delivery Room Air 12/30/24 13:07 12/30/24 14:00 12/30/24 16:00 Temperature 98.7 F Pulse Rate 57 L 64 Respiratory Rate 16 Blood Pressure 145/75 H Pulse Oximetry 99 Oxygen Delivery Room Air 12/30/24 20:10 12/30/24 20:10 12/30/24 21:08 Temperature 99.6 F Pulse Rate 67 60 Respiratory Rate 18 Blood Pressure 121/60 Pulse Oximetry 97 Oxygen Delivery Room Air 12/31/24 00:00 12/31/24 04:00 12/31/24 05:53 Temperature 99.4 F Pulse Rate 61 61 57 L Respiratory Rate 18 Blood Pressure 141/64 H Pulse Oximetry 95 Oxygen Delivery Intake/Output Intake/Output: Intake & Output 12/28/24 12/29/24 12/30/24 12/31/24 23:59 23:59 23:59 23:59 Intake Total 100 2380 3447 200 Output Total 400 Balance 100 1980 3447 200 Meds/Results Medications: Active Medications Generic Name Dose Route Start Last Admin Trade Name Freq PRN Reason Stop Dose Admin Acetaminophen 650 mg 12/28/24 18:28 Acetaminophen 325 Mg Tablet PO Q4H PRN Mild Pain (1-3) or Fever Apixaban 5 mg 12/28/24 21:00 12/30/24 20:29 Apixaban 5 Mg Tablet PO 5 mg Q12HR SALMA Administration Atorvastatin Calcium 20 mg 12/29/24 18:00 12/30/24 17:39 Atorvastatin 20 Mg Tablet PO 20 mg QPM SALMA Administration Calcium Carbonate 1,000 mg 12/29/24 10:00 12/30/24 17:39 Calcium Carbonate (Oscal) 500 Mg Tablet PO 1,000 mg 1000,1400,1800 SALMA Administration Cholestyramine Resin 4 gm 12/30/24 10:00 12/30/24 09:59 Cholestyramine (W/ Sugar) 4 Gm Powd.Pack PO Not Given DAILY@1000 [facility] Donepezil HCl 10 mg 12/29/24 09:00 Donepezil Hcl 5 Mg Tablet PO DAILY [facility] Doxycycline Hyclate 100 mg 12/29/24 00:15 12/30/24 20:29 Doxycycline Hyclate 100 Mg Tablet PO 100 mg Q12HR SALMA Administration Guaifenesin 600 mg 12/29/24 09:00 12/30/24 20:29 Guaifenesin 12 Hr 600 Mg Tabcr PO 600 mg Q12HR SALMA Administration Ceftriaxone Sodium 1 gm in 50 mls @ 100 mls/hr 12/29/24 00:00 12/30/24 23:44 Rocephin 1 Gm/Ns 50 Ml IVPB Infused Q24H SALMA Infusion Metronidazole 500 mg in 100 mls @ 100 mls/hr 12/29/24 16:00 12/31/24 00:40 Flagyl 500 Mg/Iso Soln 100 Ml IVPB Infused Q8H SALMA Infusion Sodium Chloride 1,000 mls @ 75 mls/hr 12/29/24 15:25 12/30/24 23:14 Normal Saline Iv IV CONT 75 mls/hr .[id number] SALMA Administration Loperamide HCl 2 mg 12/28/24 23:07 12/31/24 06:02 Loperamide Hcl 2 Mg Capsule PO 2 mg PRN PRN Administration Diarrhea Losartan Potassium 50 mg 12/30/24 21:00 12/30/24 20:29 Losartan Potassium 50 Mg Tablet PO 50 mg QHS SALMA Administration Magnesium Oxide 200 mg 12/29/24 09:00 12/30/24 09:50 Magnesium Oxide 200 Mg Tablet PO 200 mg DAILY SALAM Administration Meclizine HCl 25 mg 12/30/24 07:36 Meclizine Hcl 25 Mg Tablet PO Q8H PRN Dizziness Melatonin 10 mg 12/28/24 23:07 12/29/24 00:52 Melatonin 5 Mg Tablet PO 10 mg HS PRN Administration Insomnia Ondansetron HCl 4 mg 12/28/24 18:28 Ondansetron Inj 4 Mg/2 Ml Vial IV PUSH Q4H PRN Nausea Perflutren Lipid Microsphere 0 ml 12/28/24 18:39 Perflutren Lipid Microspheres 1.5 Ml Vial Diluted To 10 Ml Total Volume IV PUSH 12/31/24 18:39 ONCE PRN adequate visualization Protocol Tramadol HCl 50 mg 12/28/24 23:07 Tramadol Hcl (*Crx) 50 Mg Tablet PO Q4H PRN Pain Rated 6 Or Greater Radiology Results: ITS Impressions Venous Doppler Study 12/28/24 16:21 IMPRESSION: 1. Deep vein thrombosis involving the left peroneal veins. Chest X-Ray 12/28/24 16:36 IMPRESSION: 1. Airspace opacities at the lung bases, consistent with atelectasis versus pneumonia. 2. Small right pleural effusion. Chest CTA 12/28/24 17:53 IMPRESSION: 1. No pulmonary embolus. 2. Pneumonia in right middle lobe and right lower lobe. 3. Small right pleural effusion. 4. Mild emphysema. Renal Ultrasound 12/29/24 12:47 IMPRESSION: 1. Mild atrophy of the kidneys. No hydronephrosis. Labs Labs: Laboratory Results - last 24 hr 12/31/24 05:40 WBC 6.4 RBC 2.75 L Hgb 8.3 L Hct 25.4 L MCV 92.4 MCH 30.2 MCHC 32.7 RDW 19.3 H Plt Count 192 MPV 12.7 H Immature Gran % (Auto) 0.3 Neut % (Auto) 62.7 Lymph % (Auto) 31.2 [place] % (Auto) 4.9 Eos % (Auto) 0.6 Baso % (Auto) 0.3 Lymph # (Auto) 1.98 [place] # (Auto) 0.3 Eos # (Auto) 0.0 Baso # (Auto) 0.0 Abs Immat Gran (auto) 0.02 Absolute Neuts (auto) 4.0 Absolute Nucleated RBC 0.000 Nucleated RBC % 0.0 Sodium 139 Potassium 3.7 Chloride 110 H Carbon Dioxide 23 Anion Gap 6 BUN 16 Creatinine 1.06 H Estim Creat Clear Calc 26 Estimated GFR 49 L Glucose 75 Calcium 7.8 L Magnesium 1.5 L Total Bilirubin 0.6 AST 16 ALT 12 Alkaline Phosphatase 66 Total Protein 5.0 L Albumin 2.3 L
[2024-12-31] MEDS: CALCIUM CARBONATE (OSCAL) 500 MG TABLET 1000 MG PO ×3 (08:05→17:44)
[2024-12-31] MEDS: APIXABAN 5 MG TABLET PO ×2 (08:05→20:57)
[2024-12-31] MEDS: DOXYCYCLINE HYCLATE 100 MG TABLET PO ×2 (08:05→20:57)
[2024-12-31] MEDS: MAGNESIUM OXIDE 200 MG TABLET PO (08:05)
[2024-12-31] MEDS: guaiFENesin 12 HR 600 MG TABCR PO ×2 (08:05→20:57)
[2024-12-31] MEDS: metroNIDAZOLE 500 MG/ISO 100ML 500 MG/100 ML BAG 100 MG IVPB (08:06)
[2024-12-31] MEDS: CHOLESTYRAMINE (W/ SUGAR) 4 GM POWD.PACK PO (10:17)
--- NOTE | 2024-12-31 10:28 | P.PNCA_ITS ---
Progress Note: A&P Assessment and Plan (1) Bradyarrhythmia: Code(s): I49.8 - Other specified cardiac arrhythmias Status: Acute Assessment and Plan: 84-year-old female with hypertension, CKD, COPD/emphysema, hypothyroidism, cognitive impairment, history of tobacco abuse. Patient admitted to the hospital with shortness of breath, lower extremity swelling and episodes of dizziness and syncope. Patient was found to be in sinus bradycardia with heart rate in 40s and 50s, RBBB. On telemetry, patient has been in sinus bradycardia with heart rate in 40s and 50s, occasional pauses up to 2.2 seconds. Patient found to have left lower extremity DVT, CT negative for PE. In addition, imaging suggestive of pneumonia. -continue to monitor on telemetry for bradyarrhythmia. TSH 0.405. Avoid AV rosa blocking agents. -event monitor at discharge is ordered to evaluate for significant bradyarrhythmias. -so far on telemetry she has not had significant pauses/bradyarrhythmia. Therefore, no absolute indication for pacemaker placement at this time. -Echo showed normal LV function, mild valvular abnormalities, and mild pHTN. -Patient has minimal troponin elevation, likely non ACS. -management of pneumonia as per primary team -Cardiology will sign off please call with questions. (2) Diastolic CHF, acute on chronic: Code(s): I50.33 - Acute on chronic diastolic (congestive) heart failure Status: Acute Assessment and Plan: May use gentle diuresis only on p.r.n. basis. No significant volume overload at present. Monitor electrolytes and renal function. Repeat echo with Doppler to assess LV function. (3) Deep vein thrombosis of left lower extremity: Code(s): I82.402 - Acute embolism and thrombosis of unspecified deep veins of left lower extremity Status: Acute Assessment and Plan: Patient has been initiated on anticoagulation with apixaban. CT negative for PE. Subjective Date/time seen: 12/31/24 10:28 Interval history: Cardiology follow up visit She does not feel very well today, states she is very fatigued and feels short of breath. Telemetry is stable with no significant bradycardia or pauses. Review of Systems Review of Systems: All systems reviewed & are unremarkable except as noted in HPI and below Exam Narrative: PHYSICAL EXAMINATION: GENERAL: Weak appearing elderly female, no acute distress MENTAL STATUS: affect appropriate to mood EYES: Extraocular movements intact, no pallor EARS: External ears appear normal, hearing grossly normal NOSE: Normal and patent, no discharge MOUTH: Mucous membranes moist, tongue normal NECK: Supple, no JVD CHEST: Decreased breath sounds, decreased effort HEART: Bradycardia, regular rhythm at present ABDOMEN: Soft, nontender NEUROLOGICAL: Alert, oriented, normal speech MUSCULOSKELETAL: No major deformity, no amputation EXTREMITIES: Mild pedal edema, no clubbing, no cyanosis SKIN: Scars in the lower extremities, bandage left lower extremity PSYCHIATRIC: Slightly anxious Objective Data Vital Signs Vital Signs: Vital Signs - 24 hr 12/30/24 12:00 12/30/24 13:07 12/30/24 14:00 Temperature 37.1 C Pulse Rate 86 57 L Respiratory Rate 16 Blood Pressure 145/75 H Pulse Oximetry 99 Oxygen Delivery Room Air 12/30/24 16:00 12/30/24 20:10 12/30/24 20:10 Temperature Pulse Rate 64 67 Respiratory Rate Blood Pressure Pulse Oximetry Oxygen Delivery Room Air 12/30/24 21:08 12/31/24 00:00 12/31/24 04:00 Temperature 37.6 C Pulse Rate 60 61 61 Respiratory Rate 18 Blood Pressure 121/60 Pulse Oximetry 97 Oxygen Delivery 12/31/24 05:53 12/31/24 08:00 Temperature 37.4 C Pulse Rate 57 L Respiratory Rate 18 Blood Pressure 141/64 H Pulse Oximetry 95 Oxygen Delivery Room Air Intake/Output Intake/Output: Intake & Output 12/28/24 12/29/24 12/30/24 12/31/24 23:59 23:59 23:59 23:59 Intake Total 100 2380 3447 780 Output Total 400 Balance 100 1980 3447 780 Meds/Results Medications: Active Medications Generic Name Dose Route Start Last Admin Trade Name Freq PRN Reason Stop Dose Admin Acetaminophen 650 mg 12/28/24 18:28 Acetaminophen 325 Mg Tablet PO Q4H PRN Mild Pain (1-3) or Fever Apixaban 5 mg 12/28/24 21:00 12/31/24 08:05 Apixaban 5 Mg Tablet PO 5 mg Q12HR SALMA Administration Atorvastatin Calcium 20 mg 12/29/24 18:00 12/30/24 17:39 Atorvastatin 20 Mg Tablet PO 20 mg QPM SALMA Administration Calcium Carbonate 1,000 mg 12/29/24 10:00 12/31/24 08:05 Calcium Carbonate (Oscal) 500 Mg Tablet PO 1,000 mg 1000,1400,1800 SALMA Administration Cholestyramine Resin 4 gm 12/30/24 10:00 12/31/24 10:17 Cholestyramine (W/ Sugar) 4 Gm Powd.Pack PO 4 gm DAILY@1000 SALMA Administration Donepezil HCl 10 mg 12/29/24 09:00 Donepezil Hcl 5 Mg Tablet PO DAILY SALMA Doxycycline Hyclate 100 mg 12/29/24 00:15 12/31/24 08:05 Doxycycline Hyclate 100 Mg Tablet PO 100 mg Q12HR SALMA Administration Guaifenesin 600 mg 12/29/24 09:00 12/31/24 08:05 Guaifenesin 12 Hr 600 Mg Tabcr PO 600 mg Q12HR SALMA Administration Ceftriaxone Sodium 1 gm in 50 mls @ 100 mls/hr 12/29/24 00:00 12/30/24 23:44 Rocephin 1 Gm/Ns 50 Ml IVPB Infused Q24H SALMA Infusion Metronidazole 500 mg in 100 mls @ 100 mls/hr 12/29/24 16:00 12/31/24 09:06 Flagyl 500 Mg/Iso Soln 100 Ml IVPB Infused Q8H SALMA Infusion Sodium Chloride 1,000 mls @ 75 mls/hr 12/29/24 15:25 12/30/24 23:14 Normal Saline Iv IV CONT 75 mls/hr .[id number] SALMA Administration Loperamide HCl 2 mg 12/28/24 23:07 12/31/24 06:02 Loperamide Hcl 2 Mg Capsule PO 2 mg PRN PRN Administration Diarrhea Losartan Potassium 50 mg 12/30/24 21:00 12/30/24 20:29 Losartan Potassium 50 Mg Tablet PO 50 mg QHS SALMA Administration Magnesium Oxide 200 mg 12/29/24 09:00 12/31/24 08:05 Magnesium Oxide 200 Mg Tablet PO 200 mg DAILY SALMA Administration Meclizine HCl 25 mg 12/30/24 07:36 Meclizine Hcl 25 Mg Tablet PO Q8H PRN Dizziness Melatonin 10 mg 12/28/24 23:07 12/29/24 00:52 Melatonin 5 Mg Tablet PO 10 mg HS PRN Administration Insomnia Ondansetron HCl 4 mg 12/28/24 18:28 Ondansetron Inj 4 Mg/2 Ml Vial IV PUSH Q4H PRN Nausea Perflutren Lipid Microsphere 0 ml 12/28/24 18:39 Perflutren Lipid Microspheres 1.5 Ml Vial Diluted To 10 Ml Total Volume IV PUSH 12/31/24 18:39 ONCE PRN adequate visualization Protocol Tramadol HCl 50 mg 12/28/24 23:07 Tramadol Hcl (*Crx) 50 Mg Tablet PO Q4H PRN Pain Rated 6 Or Greater Radiology Results: ITS Impressions Venous Doppler Study 12/28/24 16:21 IMPRESSION: 1. Deep vein thrombosis involving the left peroneal veins. Chest X-Ray 12/28/24 16:36 IMPRESSION: 1. Airspace opacities at the lung bases, consistent with atelectasis versus pneumonia. 2. Small right pleural effusion. Chest CTA 12/28/24 17:53 IMPRESSION: 1. No pulmonary embolus. 2. Pneumonia in right middle lobe and right lower lobe. 3. Small right pleural effusion. 4. Mild emphysema. Renal Ultrasound 12/29/24 12:47 IMPRESSION: 1. Mild atrophy of the kidneys. No hydronephrosis. Labs Labs: Laboratory Results - last 24 hr 12/31/24 05:40 WBC 6.4 RBC 2.75 L Hgb 8.3 L Hct 25.4 L MCV 92.4 MCH 30.2 MCHC 32.7 RDW 19.3 H Plt Count 192 MPV 12.7 H Immature Gran % (Auto) 0.3 Neut % (Auto) 62.7 Lymph % (Auto) 31.2 [place] % (Auto) 4.9 Eos % (Auto) 0.6 Baso % (Auto) 0.3 Lymph # (Auto) 1.98 [place] # (Auto) 0.3 Eos # (Auto) 0.0 Baso # (Auto) 0.0 Abs Immat Gran (auto) 0.02 Absolute Neuts (auto) 4.0 Absolute Nucleated RBC 0.000 Nucleated RBC % 0.0 Sodium 139 Potassium 3.7 Chloride 110 H Carbon Dioxide 23 Anion Gap 6 BUN 16 Creatinine 1.06 H Estim Creat Clear Calc 26 Estimated GFR 49 L Glucose 75 Calcium 7.8 L Magnesium 1.5 L Total Bilirubin 0.6 AST 16 ALT 12 Alkaline Phosphatase 66 Total Protein 5.0 L Albumin 2.3 L
[2024-12-31] MEDS: SODIUM CHLORIDE 0.9% IV 1,000 ML 75 ML IV CONT (15:03)
[2024-12-31] MEDS: metroNIDAZOLE 500 MG TABLET PO ×2 (17:44→20:57)
[2024-12-31] MEDS: ATORVASTATIN 20 MG TABLET PO (17:44)
[2024-12-31] MEDS: LOSARTAN POTASSIUM 50 MG TABLET PO (20:57)
[2025-01-01] VITALS (9 sets, daily range): BP systolic 138–159; BP diastolic 75–77; PULSE 54–86; RESP 16; TEMP 36.8–37.3; O2SAT 94–96
[2025-01-01] MEDS: SODIUM CHLORIDE 0.9% IV 1,000 ML 75 ML IV CONT (03:14)
[2025-01-01] MEDS: LOPERAMIDE HCL 2 MG CAPSULE PO ×2 (04:52→20:51)
[2025-01-01] MEDS: metroNIDAZOLE 500 MG TABLET PO ×3 (04:58→20:51)
[2025-01-01] MEDS: guaiFENesin 12 HR 600 MG TABCR PO ×2 (08:07→20:51)
[2025-01-01 08:08] LABS: Basophils Percent Auto 0.3 % (0.2-1.2); Eosinophils Absolute Auto 0.1 K/mm3 (0-0.3); Eosinophils Percent Auto 0.7 % (0-4.4); Hematocrit 28.1 % (37.0-47.0); Hemoglobin 9.2 g/dL (12.0-15.0); Immature Granulocyte Absolute 0.02 K/mm3 (0.00-0.031); Immature Granulocyte Percent A 0.3 % (0-0.5); Lymphocytes Absolute Auto 1.71 K/mm3 (0.9-3.2); Lymphocytes Percent Auto 25.4 % (18.3-44.2); Mean Corpuscular HGB Conc 32.7 g/dl (32-36); Mean Corpuscular Hemoglobin 30.3 pg (26-34); Mean Corpuscular Volume 92.4 fl (80-100); Monocytes Absolute Auto 0.4 K/mm3 (0.1-0.6); Monocytes Percent Auto 5.8 % (2.6-8.5); Neutrophils Absolute Auto 4.5 K/mm3 (1.3-6.7); Neutrophils Percent Auto 67.5 % (45.5-73.1); Platelet Count Result 212 k/mm3 (150-375); Red Blood Count 3.04 M/mm3 (4.2-5.4); Red Cell Distribution Width 19.4 % (11.5-14.5); White Blood Count 6.7 K/mm3 (4.5-10.0)
[2025-01-01] MEDS: PANTOPRAZOLE 40 MG TABLET PO ×2 (08:08→17:38)
[2025-01-01] MEDS: APIXABAN 5 MG TABLET PO (08:08)
[2025-01-01] MEDS: MAGNESIUM OXIDE 200 MG TABLET PO (08:08)
[2025-01-01] MEDS: CALCIUM CARBONATE (OSCAL) 500 MG TABLET 1000 MG PO ×3 (08:08→17:38)
[2025-01-01] MEDS: DOXYCYCLINE HYCLATE 100 MG TABLET PO ×2 (08:08→20:51)
[2025-01-01 08:21] LABS: Albumin Level 2.2 g/dL (3.5-5.1); Anion Gap 4 mmol/L (4-12); Blood Urea Nitrogen 14 mg/dL (7-17); Calcium 7.6 mg/dL (8.4-10.2); Carbon Dioxide 26 mmol/L (22-30); Chloride 110 mmol/L (98-107); Estimated CRCL calculation 31 ml/min; Estimated Glomerular Filt Rate 60; Glucose 80 mg/dL (65-110); Magnesium 1.2 mg/dL (1.6-2.3); Phosphorus 1.7 mg/dL (2.5-4.5); Potassium 3.8 mmol/L (3.4-5.0); Sodium 140 mmol/L (137-145)
[2025-01-01] MEDS: POTASSIUM/PHOSPHORUS/SODIUM 1.5 GM PACKET 1 PACKET PO ×2 (10:51→17:39)
[2025-01-01] MEDS: MAGNESIUM SULF 2 GM/WATER 50ML 2 GM/50 ML BAG IVPB (10:51)
--- NOTE | 2025-01-01 15:51 | P.PNIM_ITS ---
Progress Note: A&P Assessment and Plan (1) Acute kidney injury: Code(s): N17.9 - Acute kidney failure, unspecified Status: Acute Assessment and Plan: Patient is creatinine was 1.6 on admission. Two weeks prior it was 0.8. Patient is on losartan and tramadol which may be contributing to her acute kidney injury. Consider also related to her current infection. She was treated with IV fluids. Creatinine normal now. Continue to monitor. (2) Pneumonia: Code(s): J18.9 - Pneumonia, unspecified organism Status: Acute Assessment and Plan: Chest x-ray showed airspace opacities at the lung bases. CTA of the chest showed no pulmonary emboli but did show mild emphysema, mucus plugging in the right middle and lower lobe, and central lobular nodules and airspace opacities in the right middle and lower lobes consistent with pneumonia. Small right pleural effusion noted. MRSA nasal swab was negative. Urine antigens pending. COVID, influenza and RSV PCR negative. Blood cultures collected and are no growth to date She was started on IV antibiotics. Speech therapy recommended a soft diet as minced and moist level 5 with thin liquids. Diet was adjusted. White count normal. She remains on room air. Discussed with Pharm D ID and antibiotics were switched to oral route to complete a 7 day course. Add CPT to help with secretions. (3) Bradyarrhythmia: Code(s): I49.8 - Other specified cardiac arrhythmias Status: Acute Assessment and Plan: Patient with symptomatic bradycardia. EKG showed possibly atrial fibrillation with slow ventricular response (HR 51), right bundle branch block and baseline artifact. Heart rate has been documented into the 40s. Echo shows EF of 50-55% with abnormal diastolic function and mild valvular disease. She has mild pulmonary hypertension. TSH is low at 0.4 with elevated free T4 3.3. Levothyroxine was held. Troponin elevated to 0.124 trending downward. Cardiology consulted. Monitor on telemetry. Event monitor at discharge. (4) Deep vein thrombosis of left lower extremity: Code(s): I82.402 - Acute embolism and thrombosis of unspecified deep veins of left lower extremity Status: Acute Assessment and Plan: Bilateral lower extremity venous Doppler showed DVT involving left peroneal veins. Patient was started on apixaban but the dose was incorrect. Will increase her Eliquis to 10 mg q.12H x1 week then 5 mg q.12. (5) Hypokalemia: Code(s): E87.6 - Hypokalemia Status: Resolved Assessment and Plan: Potassium 2.6 on admission. This was corrected. Potassium stable. (6) Hypomagnesemia: Code(s): E83.42 - Hypomagnesemia Status: Resolved Assessment and Plan: Magnesium low on admission and this was corrected but has drifted down again 1.2. Will replace magnesium. Continue to follow. (7) Normocytic anemia: Code(s): D64.9 - Anemia, unspecified Status: Chronic Assessment and Plan: Hemoglobin was low on admission but has been stable in the 8-9 range. Patient had a normal hemoglobin last fall. Iron studies are normal except for a low TIBC of 148. She does have a chronic proteinuria. Continue to monitor H&H. Check serum protein to creatinine ratio. (8) Hypothyroidism (acquired): Code(s): E03.9 - Hypothyroidism, unspecified Status: Chronic Assessment and Plan: Thyroid studies as mentioned above. Levothyroxine on hold. Will resume levothyroxine tomorrow at 100 mcg a day. She will need follow-up thyroid studies in a month. Plan DVT prophylaxis on Eliquis Code status -full Subjective Date/time seen: 01/01/25 15:51 Interval history: 84yo female with HTN, hypothyroidism, CKD stage 3, COPD, diastolic dysfunction, anemia, and GERD who presented to the emergency department for evaluation of leg swelling. Assuming care. Chart reviewed. Patient slept poorly last night. She feels short of breath. She has a nonproductive cough. She is eating poorly. She denies chest pain. Exam Narrative: AF 98.3 138/76 86 16 96% ra Gen - NARD lying semi recumbent in bed Chest -coarse breath sounds anteriorly and in the flanks. Normal respiratory rate. CV - RRR S1/S2 Abd - Soft, NT/ND, Positive BS Ext - 1+ pedal edema Psych - Nml mood and affect Skin - Warm and dry. Left lower extremity dressing is clean, dry intact. Objective Data Vital Signs Vital Signs: Vital Signs - 24 hr 12/31/24 16:00 12/31/24 20:00 12/31/24 20:13 Temperature 99.0 F Pulse Rate 60 61 63 Respiratory Rate 16 Blood Pressure 150/68 H Pulse Oximetry 97 Oxygen Delivery 12/31/24 20:52 01/01/25 00:00 01/01/25 04:00 Temperature Pulse Rate 59 L 54 L Respiratory Rate Blood Pressure Pulse Oximetry Oxygen Delivery Room Air 01/01/25 04:50 01/01/25 08:15 01/01/25 14:00 Temperature 98.8 F 98.3 F Pulse Rate 76 86 Respiratory Rate 16 16 Blood Pressure 145/75 H 138/76 Pulse Oximetry 94 96 Oxygen Delivery Room Air Intake/Output Intake/Output: Intake & Output 12/29/24 12/30/24 12/31/24 01/01/25 23:59 23:59 23:59 23:59 Intake Total 2380 3447 2187 1570.7 Output Total 400 Balance 1980 3447 2187 1570.7 Meds/Results Medications: Active Medications Generic Name Dose Route Start Last Admin Trade Name Freq PRN Reason Stop Dose Admin Acetaminophen 650 mg 12/28/24 18:28 Acetaminophen 325 Mg Tablet PO Q4H PRN Mild Pain (1-3) or Fever Apixaban 5 mg 12/28/24 21:00 01/01/25 08:08 Apixaban 5 Mg Tablet PO 5 mg Q12HR SALMA Administration Atorvastatin Calcium 20 mg 12/29/24 18:00 12/31/24 17:44 Atorvastatin 20 Mg Tablet PO 20 mg QPM SALMA Administration Calcium Carbonate 1,000 mg 12/29/24 10:00 01/01/25 15:44 Calcium Carbonate (Oscal) 500 Mg Tablet PO 1,000 mg 1000,1400,1800 SALMA Administration Cefdinir 300 mg 01/01/25 21:00 Cefdinir 300 Mg Capsule PO 01/04/25 23:59 Q12HR [facility] Cholestyramine Resin 4 gm 12/30/24 10:00 01/01/25 10:36 Cholestyramine (W/ Sugar) 4 Gm Powd.Pack PO Not Given DAILY@1000 [facility] Donepezil HCl 10 mg 12/29/24 09:00 Donepezil Hcl 5 Mg Tablet PO DAILY [facility] Doxycycline Hyclate 100 mg 12/29/24 00:15 01/01/25 08:08 Doxycycline Hyclate 100 Mg Tablet PO 01/02/25 09:01 100 mg Q12HR [facility] Administration Guaifenesin 600 mg 12/29/24 09:00 01/01/25 08:07 Guaifenesin 12 Hr 600 Mg Tabcr PO 600 mg Q12HR SALMA Administration Loperamide HCl 2 mg 12/28/24 23:07 01/01/25 04:52 Loperamide Hcl 2 Mg Capsule PO 2 mg PRN PRN Administration Diarrhea Losartan Potassium 50 mg 12/30/24 21:00 12/31/24 20:57 Losartan Potassium 50 Mg Tablet PO 50 mg QHS SALMA Administration Magnesium Oxide 200 mg 12/29/24 09:00 01/01/25 08:08 Magnesium Oxide 200 Mg Tablet PO 200 mg DAILY SALMA Administration Meclizine HCl 25 mg 12/30/24 07:36 Meclizine Hcl 25 Mg Tablet PO Q8H PRN Dizziness Melatonin 10 mg 12/28/24 23:07 12/29/24 00:52 Melatonin 5 Mg Tablet PO 10 mg HS PRN Administration Insomnia Metronidazole 500 mg 12/31/24 16:15 01/01/25 15:44 Metronidazole 500 Mg Tablet PO 01/04/25 23:59 500 mg Q8HR SALMA Administration Ondansetron HCl 4 mg 12/28/24 18:28 Ondansetron Inj 4 Mg/2 Ml Vial IV PUSH Q4H PRN Nausea Pantoprazole Sodium 40 mg 01/01/25 09:00 01/01/25 08:08 Pantoprazole 40 Mg Tablet PO 40 mg BID SALMA Administration Potassium Phos/Sodium Phos 1 packet 01/01/25 10:20 01/01/25 10:51 Potassium/Phosphorus/Sodium 1.5 Gm Packet PO 01/01/25 16:21 1 packet Q6H SALMA Administration Tramadol HCl 50 mg 12/28/24 23:07 Tramadol Hcl (*Crx) 50 Mg Tablet PO Q4H PRN Pain Rated 6 Or Greater Radiology Results: ITS Impressions Venous Doppler Study 12/28/24 16:21 IMPRESSION: 1. Deep vein thrombosis involving the left peroneal veins. Chest X-Ray 12/28/24 16:36 IMPRESSION: 1. Airspace opacities at the lung bases, consistent with atelectasis versus pneumonia. 2. Small right pleural effusion. Chest CTA 12/28/24 17:53 IMPRESSION: 1. No pulmonary embolus. 2. Pneumonia in right middle lobe and right lower lobe. 3. Small right pleural effusion. 4. Mild emphysema. Renal Ultrasound 12/29/24 12:47 IMPRESSION: 1. Mild atrophy of the kidneys. No hydronephrosis. Labs Labs: Laboratory Results - last 24 hr 01/01/25 08:03 WBC 6.7 RBC 3.04 L Hgb 9.2 L Hct 28.1 L MCV 92.4 MCH 30.3 MCHC 32.7 RDW 19.4 H Plt Count 212 MPV 12.0 H Immature Gran % (Auto) 0.3 Neut % (Auto) 67.5 Lymph % (Auto) 25.4 [place] % (Auto) 5.8 Eos % (Auto) 0.7 Baso % (Auto) 0.3 Lymph # (Auto) 1.71 [place] # (Auto) 0.4 Eos # (Auto) 0.1 Baso # (Auto) 0.0 Abs Immat Gran (auto) 0.02 Absolute Neuts (auto) 4.5 Absolute Nucleated RBC 0.000 Nucleated RBC % 0.0 Sodium 140 Potassium 3.8 Chloride 110 H Carbon Dioxide 26 Anion Gap 4 BUN 14 Creatinine 0.90 Estim Creat Clear Calc 31 Estimated GFR 60 Glucose 80 Calcium 7.6 L Phosphorus 1.7 L Magnesium 1.2 L Albumin 2.2 L
[2025-01-01] MEDS: ATORVASTATIN 20 MG TABLET PO (17:38)
[2025-01-01] MEDS: CEFDINIR 300 MG CAPSULE PO (20:51)
[2025-01-01] MEDS: LOSARTAN POTASSIUM 50 MG TABLET PO (20:51)
[2025-01-01] MEDS: APIXABAN 5 MG TABLET 10 MG PO (20:51)
[2025-01-02] VITALS (7 sets, daily range): BP systolic 122–130; BP diastolic 51–71; PULSE 64–72; RESP 16; TEMP 37.1–37.6; O2SAT 97
[2025-01-02] MEDS: metroNIDAZOLE 500 MG TABLET PO ×2 (05:25→13:45)
[2025-01-02] MEDS: LEVOTHYROXINE SODIUM 100 MCG TABLET PO (05:25)
[2025-01-02] MEDS: LOPERAMIDE HCL 2 MG CAPSULE PO (05:25)
[2025-01-02 06:00] LABS: Hemoglobin 9.4 g/dL (12.0-15.0); Mean Corpuscular HGB Conc 32.4 g/dl (32-36); Mean Corpuscular Hemoglobin 29.7 pg (26-34); Mean Corpuscular Volume 91.8 fl (80-100); Mean Platelet Volume 12.3 fl (7.4-10.4); Platelet Count Result 245 k/mm3 (150-375); Red Blood Count 3.16 M/mm3 (4.2-5.4); Red Cell Distribution Width 19.3 % (11.5-14.5); White Blood Count 7.8 K/mm3 (4.5-10.0)
[2025-01-02 06:21] LABS: Albumin Level 2.3 g/dL (3.5-5.1); Anion Gap 5 mmol/L (4-12); Blood Urea Nitrogen 18 mg/dL (7-17); Calcium 7.7 mg/dL (8.4-10.2); Carbon Dioxide 26 mmol/L (22-30); Chloride 110 mmol/L (98-107); Estimated CRCL calculation 28 ml/min; Estimated Glomerular Filt Rate 53; Glucose 76 mg/dL (65-110); Magnesium 1.5 mg/dL (1.6-2.3); Phosphorus 1.7 mg/dL (2.5-4.5); Potassium 4.2 mmol/L (3.4-5.0); Sodium 141 mmol/L (137-145)
[2025-01-02] MEDS: guaiFENesin 12 HR 600 MG TABCR PO (08:59)
[2025-01-02] MEDS: MAGNESIUM OXIDE 200 MG TABLET PO (08:59)
[2025-01-02] MEDS: PANTOPRAZOLE 40 MG TABLET PO (08:59)
[2025-01-02] MEDS: CEFDINIR 300 MG CAPSULE PO (08:59)
[2025-01-02] MEDS: DOXYCYCLINE HYCLATE 100 MG TABLET PO (09:00)
[2025-01-02] MEDS: APIXABAN 5 MG TABLET 10 MG PO (09:00)
[2025-01-02] MEDS: POTASSIUM/PHOSPHORUS/SODIUM 1.5 GM PACKET 1 PACKET PO ×2 (09:00→13:45)
[2025-01-02] MEDS: MAGNESIUM SULF 2 GM/WATER 50ML 2 GM/50 ML BAG IVPB (09:01)
--- NOTE | 2025-01-02 10:43 | PCNFU ---
Nutrition Follow-Up Complete: Inadequate Oral Intake as related to weakness as evidenced by weight loss and poor po intake reported on admit. goal:Adequate Intake of at least 75% of meals/supplements Patient is not meeting goal. We will continue current goal. Pt current nutrition is Heart Healthy with Ensure Enlive BID. Nutrition recommendation:Ensure Enlive TID Last recorded weight is 55.4 kg, weight change of 15% (19 ibs weight loss) since Aug 2024. Bowel Motility:+Bm reported 01/02 Labs Reviewed:Mg 1.5, BUN 18 Meds Noted:Eliquis, Mucinex, Protonix Skin: WNL Additional Notes: Heart Healthy diet has been ordered, poor po intake since admit. Patient only taking liquids, limited on solids. She did eat oatmeal this morning. Tolerating diet supplements which are providing 350 kcal and 20 gm protein. NFPE performed. Severe Protein Calorie Malnutrition as related to inadequate protein caloric intake as evidenced by < 75% of EER for 5 days, significant weight loss of 15%(19 ibs) in 4 months; moderate subcutaneous fat loss (orbital fat pads) and moderate muscle wasting (temporalis). PO intake encouraged. RD will monitor weight, labs, skin, diet orders, meds every 5 days.
--- NOTE | 2025-01-02 12:14 | WPDCDIQUERY2 ---
CDI Query Clarification Request BMI: 23.1 Nutritional Diagnostic Statement: Please refer to the comprehensive nutrition assessment for further information. If you agree with diagnosis of Severe Protein-Calorie Malnutrition. Please specify severity if known: Mild Moderate Severe Other/Unknown
[2025-01-02 13:48] LABS: Pneumococcal Antigen Urine DETECTED
--- NOTE | 2025-01-02 14:34 | PM.DS ---
DS: Admitting Diagnosis Discharge Date 01/02/25 Admitting Diagnosis Leg edema DS: Discharge Diagnosis Discharge Diagnosis (1) Acute kidney injury: Code(s): N17.9 - Acute kidney failure, unspecified Status: Acute (2) Pneumonia: Code(s): J18.9 - Pneumonia, unspecified organism Status: Acute (3) Bradyarrhythmia: Code(s): I49.8 - Other specified cardiac arrhythmias Status: Acute (4) Deep vein thrombosis of left lower extremity: Code(s): I82.402 - Acute embolism and thrombosis of unspecified deep veins of left lower extremity Status: Acute (5) Hypokalemia: Code(s): E87.6 - Hypokalemia Status: Resolved (6) Hypomagnesemia: Code(s): E83.42 - Hypomagnesemia Status: Resolved (7) Normocytic anemia: Code(s): D64.9 - Anemia, unspecified Status: Chronic (8) Hypothyroidism (acquired): Code(s): E03.9 - Hypothyroidism, unspecified Status: Chronic DS: Summary Hospital Course Reason for hospitalization: 84yo female with HTN, hypothyroidism, CKD stage 3, COPD, diastolic dysfunction, anemia, and GERD who presented to the emergency department for evaluation of leg swelling. Please see H&P for details Hospital Course: Chest x-ray showed airspace opacities at the lung bases. CTA of the chest showed no pulmonary emboli but did show mild emphysema, mucus plugging in the right middle and lower lobe, and central lobular nodules and airspace opacities in the right middle and lower lobes consistent with pneumonia. Small right pleural effusion noted. MRSA nasal swab was negative. Urine antigens showing pneumococcal urine Ag was positive. COVID, influenza and RSV PCR negative. Blood cultures collected and are no growth to date. She was started on IV antibiotics. Speech therapy recommended a soft diet as minced and moist level 5 with thin liquids. Diet was adjusted. White count normal. She remains on room air. Discussed with Pharm D ID and antibiotics were switched to oral route to complete a 7 day course. Added CPT to help with secretions. Patient with creatinine of 1.6 on admission. Two weeks prior it was 0.8. Patient was on losartan and tramadol which may be contributing to her acute kidney injury. Consider also related to her current infection. She was treated with IV fluids and creatinine normal now. Patient with symptomatic bradycardia. EKG showed possibly atrial fibrillation with slow ventricular response (HR 51), right bundle branch block and baseline artifact. Heart rate has been documented into the 30-40s. Echo shows EF of 50-55% with abnormal diastolic function and mild valvular disease. She has mild pulmonary hypertension. TSH was low at 0.4 with elevated free T4 3.3. Levothyroxine was held. Troponin elevated to 0.124 before trending downward. Cardiology consulted and recommended an Event monitor at discharge. Due to her leg edema, bilateral lower extremity venous Doppler performed showing DVT involving left peroneal veins. Patient was started on apixaban but the dose was incorrect so she was increased to Eliquis to 10 mg q.12H x1 week then 5 mg q.12. Potassium 2.6 on admission. This was corrected. Potassium stable now. Magnesium low on admission and this was corrected but drifted down again 1.2 and replacement ordered again. Hemoglobin was low on admission but has been stable in the 8-9 range. Patient had a normal hemoglobin last fall. Iron studies are normal except for a low TIBC of 148. She does have a chronic proteinuria. Serum protein to creatinine ratio ordered but not able to be collected. Thyroid studies as mentioned above. Levothyroxine was held. Wel resumed levothyroxine at 100 mcg a day. She will need follow-up thyroid studies in a month. She had clinical improvement. She was accepted for SNF placement. She overall did well and was able to be discharged on 01/02/25. Left message with the friend listed in the contacts about discharge today. Status at Discharge Cognitive/behavioral status at discharge: Stable Time Spent with Patient Time attestation: Total time spent providing and/or coordinating discharge services: 35 minutes Time spent: Greater than 30 minutes Exam Narrative: AF 98.7 122/51 65 16 97% ra Gen - NARD Chest -lungs clear anteriorly and in the flanks. Normal respiratory rate. CV - RRR S1/S2 Abd - Soft, NT/ND, Positive BS Ext - no pedal edema Psych - Nml mood and affect Skin - Warm and dry. Left lower extremity dressing is clean, dry intact. DS: Data Data Completed and Pending Labs on day of discharge: Labs from last 24 hours 01/02/25 12/29/24 05:33 02:22 WBC 7.8 RBC 3.16 L Hgb 9.4 L Hct 29.0 L MCV 91.8 MCH 29.7 MCHC 32.4 RDW 19.3 H Plt Count 245 MPV 12.3 H Sodium 141 Potassium 4.2 Chloride 110 H Carbon Dioxide 26 Anion Gap 5 BUN 18 H Creatinine 0.99 Estim Creat Clear Calc 28 Estimated GFR 53 L Glucose 76 Calcium 7.7 L Phosphorus 1.7 L Magnesium 1.5 L Albumin 2.3 L Urine Pneumococcal Ag Detected A Preliminary micro results at discharge 12/28/24 21:35 Blood Culture - Preliminary Blood 12/28/24 19:31 Blood Culture - Preliminary Blood Discharge Plan Discharge Attending physician on discharge: Robles Paige Consulting providers: Ge Amanda Discharging Clinician: Robles Paige Anticipated Discharge Date/Time: 01/02/25 14:45 Patient Disposition: SNF Activity: as tolerated Diet: other - see discharge instructions Discharge Instructions: Level 5 minced and moist diet with thin liquids. Please have speech therapy evaluate to see diet can be advanced. Continue to encourage incentive spirometry use. Check blood pressure 1 to 2 times a day. Record for the doctor's review. Take precautions to avoid falls. Rise slowly from a lying or sitting position. Pause before standing or walking. Contact the doctor if the patient has any type of trauma, lightheadedness with standing or other worrisome symptoms. Avoid NSAIDs (ibuprofen, naproxen, Aleve). Tylenol is safe to take. Eliquis 10mg Q12hr through the morning of January 08 then decrease to 5mg Q12hr starting the evening of January 08. Follow-up with the provider at the facility. Thank you for using [facility] for your health care needs. Patient Instructions: Apixaban (By mouth) Patient Language: Palauan Stand Alone Forms: General Discharge Information Follow-up/Referrals: Henry Hinojosa MD [Primary Care Provider] - Discharge Medications: New metronidazole 500 mg Tablet 500 mg PO Q8HR Qty: 7 0RF acetaminophen 325 mg Tablet 650 mg PO Q4H PRN (Reason: Mild Pain (1-3) Or Fever) Qty: 10 0RF cefdinir 300 mg Capsule 300 mg PO Q12HR Qty: 5 0RF Eliquis 5 mg Tablet 10 mg PO Q12HR Qty: 30 0RF Rx Instructions: Eliquis 10mg Q12hr through the morning of January 08 then decrease to 5mg Q12hr starting the evening of January 08 levothyroxine [Synthroid] 100 mcg Tablet 100 mcg PO DAILY@0630 Qty: 30 0RF Continued meclizine 25 mg tablet 25 mg PO Q8H PRN (Reason: Dizziness) Rx Instructions: TAKE 1 TABLET BY MOUTH THREE TIMES DAILY NEEDED FOR DIZZINESS melatonin 10 mg Tablet 10 mg PO HS PRN (Reason: Insomnia) donepezil 5 mg tablet 10 mg PO DAILY calcium carbonate [Oyster Shell Calcium 500] 500 mg calcium (1,250 mg) Tablet 1,000 mg PO 1000,1400,1800 Qty: 30 0RF ergocalciferol (vitamin D2) [Vitamin D2] 1,250 mcg (50,000 unit) Capsule 1,250 mcg PO WEEKLY Qty: 7 0RF guaifenesin [Mucus Relief ER] 600 mg Tablet Extended Release 12hr 600 mg PO Q12HR Qty: 30 0RF losartan 50 mg tablet 50 mg PO QHS atorvastatin 20 mg tablet 20 mg PO QPM loperamide 2 mg Capsule 2 mg PO PRN PRN (Reason: Diarrhea) Qty: 14 0RF cholestyramine (with sugar) 4 gram Powder In Packet 1 ea PO DAILY@1000 Qty: 14 0RF pantoprazole 40 mg tablet,delayed release (DR/EC) 40 mg PO BID 30 Days Qty: 180 3RF Changed magnesium oxide 400 mg (241.3 mg magnesium) Tablet 400 mg PO DAILY Qty: 30 0RF Discontinued levothyroxine 150 mcg tablet 150 mcg PO DAILY Rx Instructions: Take 1 tablet by mouth once daily tramadol 50 mg Tablet 50 mg PO Q4H PRN (Reason: Pain Rated 6 Or Greater) Qty: 10 0RF Other Ambulatory Orders: CA cardiac event monitor (Routine) Timeframe: 1 Month Location: [facility] Cardiology Ordered By: Leann Thornton Magnesium (Routine) Timeframe: 20250106 Location: Determined by Patient Ordered By: Robles Paige Renal Function Panel (Routine) Timeframe: 20250106 Location: Determined by Patient Ordered By: Robles Paige Thyroid Stimulating Hormone Reflex (Routine) Timeframe: 1 Month Location: Determined by Patient Ordered By: Robles Paige Date of admission: 12/28/24 18:28 Primary Care Provider: Henry Hinojosa Admitting Provider: Aden Mandel Attending physician on admission: Aden Mandel Condition: Stable Hospitalist MIPS Heart Failure (Exclusion) Patient has history of Heart Transplant or Left Ventricular Assistive Device?: No IF YES, STOP HERE Heart Failure (Qualifier) Patient has current or prior documentation of LVEF less than or equal to 40%, or mod/servere depressed LVSF?: No IF NO, STOP HERE
[2025-01-03 17:23] LABS: Mycoplasma IgM Antibody Titer 28 U/mL
== END 2025-01-02 17:30 | DRG 299 ==
LOC: ANHED 15:21 → ANHIMU 19:14 → ANH2MED 12-29 20:52
PROVIDERS: Internal Medicine; Internal Medicine Cardiovascular Disease; Physician Assistant; Admitting Provider Internal Medicine; Emergency Provider Student in an Organized Health Care Education/Training Program; PCP Emergency Medicine; Visit Provider Internal Medicine
DX: I82.452 Acute embolism and thrombosis of left peroneal vein (principal); E43 Unspecified severe protein-calorie malnutrition; J18.9 Pneumonia, unspecified organism; I50.33 Acute on chronic diastolic (congestive) heart failure; N17.9 Acute kidney failure, unspecified; I13.0 Hypertensive heart and chronic kidney disease with heart failure and stage 1 through stage 4 chronic kidney disease, or unspecified chronic kidney disease; N18.30 Chronic kidney disease, stage 3 unspecified; E87.6 Hypokalemia; E83.42 Hypomagnesemia; D64.9 Anemia, unspecified; E03.9 Hypothyroidism, unspecified; I49.8 Other specified cardiac arrhythmias; J44.9 Chronic obstructive pulmonary disease, unspecified; I73.9 Peripheral vascular disease, unspecified; F41.8 Other specified anxiety disorders; K21.9 Gastro-esophageal reflux disease without esophagitis; E83.51 Hypocalcemia; M06.9 Rheumatoid arthritis, unspecified; Z66 Do not resuscitate; Z68.23 Body mass index [BMI] 23.0-23.9, adult; Z90.49 Acquired absence of other specified parts of digestive tract; Z98.49 Cataract extraction status, unspecified eye; Z87.891 Personal history of nicotine dependence
CPT/HCPCS: 36415; 71045; 71046; 71275; 76775; 80048; 80053; 80069; 82728; 83540; 83550; 83605; 83735; 83880; 84439; 84443; 84484; 85025; 85027; 85055; 85380; 85610; 85730; 86738; 87040; 87449; 87493; 87636; 87637; 87641; 87899; 92610; 93005; 93306; 93970; 94667; 96365; 96368; 97110; 97162; 97166; 97530; 97535; 99285; A9270; J0692; J0696; J1836; J3370; J3475; J3480; J7030; J7040; P9047; Q9967

== ENCOUNTER 2025-02-22 14:19 | Emergency (ER) | payer MEDICARE, MEDICAID, SELFPAY ==
[2025-02-22] VITALS (9 sets, daily range): BP systolic 118–156; BP diastolic 62–84; PULSE 56–85; RESP 14–16; TEMP 36.6; O2SAT 96–100
--- NOTE | ~2025-02-22 | CT_ITS ---
Procedure: CTA LE RT Ordering provider: Neetu Kumar PA-C History: . near circumferential hematoma R lower leg . Comparison: None Technique: CT angiogram abdomen and pelvis was performed following timed intravenous injection of con trast. Thin slice axial images and reformatted coronal images were obtained. Three dimensional reform atted images were also obtained using a [employer] workstation. Radiation reduction technique utilized.The dose-length product was 631.98 mGy-cm. 100 mL Omnipaque 35 0 was given IV. FINDINGS: UPPER ABDOMINAL ORGANS: Liver: Normal visualized portion . Adrenals: Normal. Kidneys: Patchy hypodensities opacification seen in the kidneys which may represent bilateral calcifi cation of the kidney. Possibility of pyelonephritis cannot be excluded. PELVIC ORGANS: The bladder shows thickened wall. The uterus shows fluid index in the uterine cavity. Further evaluation to exclude a mass in the uteri ne cavity or in the cervix is advised. BOWEL AND MESENTERY: Colon: Visualized large bowel is unremarkable. Visualized Small Bowel: Normal. No obstruction. Peritoneum/mesentery: No free air or free fluid. No mesenteric lymphadenopathy. RETROPERITONEUM: No retroperitoneal lymphadenopathy. ABDOMINAL AORTA: Atherosclerotic changes. Normal in caliber. No dissection. ILIAC ARTERIES AND BRANCHING VESSELS: Atherosclerotic changes. Normal in caliber. RENAL ARTERIES: Normal caliber. OTHER BRANCHING VESSELS OF THE ABDOMINAL AORTA AND THE MESENTERIC ARTERIES: Normal. The superficial soft tissues of the abdomen and pelvis are normal. Age appropriate degenerative reed es of the spine. LOWER EXTREMITIES: COMMON FEMORAL ARTERIES: Atherosclerotic changes Slight narrowing of the left common femoral artery. FEMORAL ARTERIES: Atherosclerotic changes with mild to moderate narrowing of the right and left femor al artery. BILATERAL PROFUNDA FEMORA: Atherosclerotic changes. POPLITEAL ARTERIES: Atherosclerotic changes. TRIFURCATION AND THE POSTERIOR/ANTERIOR TIBIAL AND PERONEAL ARTERIES: Seen bilaterally with improper visualization of the left distal anterior and posterior tibial arteries. FLOW TO THE FOOT: Patent dorsalis pedis on the right. The left is not demonstrated.. Flow demonstrate d within the right anterior and posterior tibial arteries below the ankle.The left arteries are not demonstrated. BONES AND SOFT TISSUES: . Soft tissue mass is seen posteriorly in the right lower leg which measures 5.8 x 3 cm. Edema in the right leg also seen anteriorly and medially and posteriorly extending to the level of the ankle joint. Hematoma is not excluded. Bilateral hip osteoarthritic changes. Degenerati ve changes of the spine. IMPRESSION: A mass seen in the area of the mid right calf with edema extending more inferiorly to the level of th e ankle. Hematoma is highly suggestive. Further evaluation advised. Nonvisualization of the distal left anterior and posterior tibial arteries. Further evaluation is adv ised. Multiple areas of narrowing in the right and left superficial femoral arteries. Further evaluation ad vised. Patchy areas of increased density in the kidneys which may indicate pyelonephritis versus nephrocalci nosis. Further evaluation is advised Fluid in the uterine cavity with soft tissue density inferiorly. Clinical and further evaluation is a dvised to exclude endometrial carcinoma.. Reviewed, dictated and finalized at location A. IMPRESSION: A mass seen in the area of the mid right calf with edema extending more inferio rly to the level of the ankle. Hematoma is highly suggestive. Further evaluatio n advised. Nonvisualization of the distal left anterior and posterior tibial arteries. Fur ther evaluation is advised. Multiple areas of narrowing in the right and left superficial femoral arteries. Further evaluation advised. Patchy areas of increased density in the kidneys which may indicate pyelonephri tis versus nephrocalcinosis. Further evaluation is advised Fluid in the uterine cavity with soft tissue density inferiorly. Clinical and f urther evaluation is advised to exclude endometrial carcinoma..
--- NOTE | ~2025-02-22 | XR_ITS ---
XR tibia fibula RT 2V Ordering provider: Neetu Kumar PA-C History: . large hematoma/fall? . Comparison: None. FINDINGS: BONES: No acute fracture or dislocation. JOINT SPACES: Normal. SOFT TISSUES: Large soft tissue swelling is seen medially and laterally opposite the distal one third junction with the proximal two thirds of the right tibia and fibula which may be a hematoma. Soft ti ssue Mass cannot be excluded. Clinical correlation and follow-up advised. Calcified area in the soft tissue is also noted Calcaneus spur and ossification of the insertion of the tendo Achilles. IMPRESSION: No acute osseous abnormality right leg. Soft tissue swelling opposite the medial and lateral midshaft which may be posttraumatic hematoma but a mass cannot be excluded. Clinical correlation and follow-up advised. Reviewed, dictated and finalized at location A. IMPRESSION: No acute osseous abnormality right leg. Soft tissue swelling opposite the medial and lateral midshaft which may be post traumatic hematoma but a mass cannot be excluded. Clinical correlation and foll ow-up advised.
--- NOTE | ~2025-02-22 | US_ITS ---
RIGHT LOWER EXTREMITY VENOUS ULTRASOUND Ordering provider: Neetu Kumar PA-C History: . large hematoma, R calf pain/swelling/redness . Comparison: None. FINDINGS: --COMMON FEMORAL: Patent and free of thrombus. Normal compressibility, phasic flow and augmentation. --PROXIMAL SUPERFICIAL FEMORAL: Patent and free of thrombus. Normal compressibility, phasic flow and augmentation. --DISTAL SUPERFICIAL FEMORAL: Patent and free of thrombus. Normal compressibility, phasic flow and au gmentation. --POPLITEAL: Patent and free of thrombus. Normal compressibility, phasic flow and augmentation. --POSTERIOR TIBIAL: Patent and free of thrombus. Normal compressibility, phasic flow and augmentation . IMPRESSION: Negative right lower extremity venous US. No deep vein thrombosis. Reviewed, dictated and finalized at location A.
--- OUTSIDE RECORDS SUMMARY | 2025-02-22 14:54 | XMS_ITS | Referral Summary ---
Author Organization [facility] [address] Address [address] [place] [address] Care Team Providers Care Leather Skinner Name Role Phone Patel Adrian MD Primary Care Provider [phone] Encounters Date Type Department Care Team Description 01/07/2025 Orders Only [facility] Cardiology [address] [place] [address] Ge Amanda MD from Last 3 Months Allergies Active Allergy Reactions Criticality Noted Date Comments Alverto Inhibitors Rash Medium 03/23/2020 Penicillins Anaphylaxis Reaction: ANAPHYLAXIS Medications potassium chloride 10 mEq/100 mL Active fluticasone propionate (FLOVENT DISKUS) 50 mcg/actuation diskus inhaler Inhale 1 puff 2 (two) times a day Rinse mouth with water after use. Do not swallow. 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 nystatin 100,000 unit/mL suspension [...] on file Legal Sex Female 10:55 AM HUMANITIES COORDINATOR Gender Identity Not on file Sexual Orientation [...] CDT Plan of Treatment Not on file Procedures Procedure Name Priority Date/Time Associated Diagnosis Comments CARDIOLOGY DOCUMENT SCAN Routine 12/31/2024 1:11 PM HUMANITIES COORDINATOR CARDIOLOGY DOCUMENT SCAN Routine 12/29/2024 1:08 PM HUMANITIES COORDINATOR from Last 3 Months Results * Cardiology Document Scan (12/31/2024 1:11 PM HUMANITIES COORDINATOR) Anatomical Region Laterality Modality Other Leann Thornton NP CV CARDIAC SERVICES PROCEDUR ES Final Result * Cardiology Document Scan (12/29/2024 1:08 PM HUMANITIES COORDINATOR) Anatomical Region Laterality Modality Other Ge Amanda MD CV CARDIAC SERVICES PROCEDURES F inal Result from Last 3 Months Insurance [facility] AETNA MEDICARE MEDICARE MEDICARE [facility] Address: [address] [address] [place] [address] [facility] AETNA MEDICARE GOLD Care Teams Leather Skinner Relationship Specialty Start Date End Date Patel Adrian MD [address] [place] [address] PCP - General 07/30/20
--- OUTSIDE RECORDS SUMMARY | 2025-02-22 14:54 | XMS_ITS | Clinical Summary ---
Author Organization [facility] Address [address] [facility] [address] [place] [address] Phone Care Team Providers Care Board Of Directors Name Role Phone Henry Hinojosa MD Primary Care Provider [phone] Medications polyethylene glycol (MIRALAX) Powder Use entire [...] age to complete this topic Care Teams Board Of Directors Relationship Specialty Start Date End Date Henry Hinojosa MD [address] [facility] [address] [place] [address] (work) PCP - General Internal Medicine 01/26/17
--- OUTSIDE RECORDS SUMMARY | 2025-02-22 14:54 | XMS_ITS | Clinical Summary ---
Author Organization [facility] [address] Address [address] [place] [address] Care Team Providers Care Shared Services Manager Name Role Phone Patel Adrian MD Primary Care Provider [phone] Allergies Active Allergy Reactions Criticality Noted Date Comments Alverto Inhibitors Rash Medium 03/23/2020 Penicillins Anaphylaxis Reaction: ANAPHYLAXIS Medications potassium chloride 10 mEq/100 mL Active fluticasone propionate (FLOVENT DISKUS) 50 mcg/actuation diskus inhaler Inhale 1 puff 2 (two) times a day Rinse mouth with water after use. Do not swallow. 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 Active nystatin 100,000 unit/mL [...] ulcers of both lower extremities 1 11/28/2014 Encounters Date Type Department Care Team Description 01/07/2025 Orders Only [facility] Cardiology [address] [place] [address] Ge Amanda MD from Last 3 Months Immunizations Immunization Administration Dates Next Due Influenza, [...] on file Legal Sex Female 10:55 AM KEY PERSON Gender Identity Not on file Sexual Orientation [...] 1958 Well Visit 65+ 2005 Influenza Vaccine (Season Ended) 2025 08/09/2019, 07/10/2018, 07/14/2017, Additional history exists Pneumococcal vaccine 65+ Completed 07/14/2017, 08/06 Zoster Vaccine Completed 12/09/2019, 08/09/2019 Procedures Procedure Name Priority Date/Time Associated Diagnosis Comments CARDIOLOGY DOCUMENT SCAN Routine 12/31/2024 1:11 PM KEY PERSON CARDIOLOGY DOCUMENT SCAN Routine 12/29/2024 1:08 PM KEY PERSON from Last 3 Months Results * Cardiology Document Scan (12/31/2024 1:11 PM KEY PERSON) Anatomical Region Laterality Modality Other us Leann Thornton NP CV CARDIAC SERVICES PROCEDUR ES Final Result * Cardiology Document Scan (12/29/2024 1:08 PM KEY PERSON) Anatomical Region Laterality Modality Other us Ge Amanda MD CV CARDIAC SERVICES PROCEDURES F inal Result from Last 3 Months Insurance [facility] MEDICARE MEDICARE MEDICARE [facility] AETNA MEDICARE GOLD Care Teams Shared Services Manager Relationship Specialty Start Date End Date Patel Adrian MD [address] [place] [address] PCP - General 07/30/20
--- OUTSIDE RECORDS SUMMARY | 2025-02-22 14:54 | XMS_ITS | Encounter Summary ---
Author Organization [facility] Address [address] [place] [address] Care Team Providers Care Content Development Manager Name Role Phone Robert Zuniga MD Primary Care Provider [phone] Karthik Benjamin MD Primary Care Provider [phone] Henry Hinojosa MD Primary Care Provider [phone] Encounter Details Date Type Department Care Team (Late st Contact Info) Description 09/28/2015 [facility] Outpatient Visit [facility] [address] [place] [address] [place] [address] [address] Social History Tobacco Use Types Packs/Day Years Used Date Smoking Tobacco: Every Day Smokeless Tobacco: Never Alcohol Use Standard Drinks/Week Comments No 0 (1 standard drink = 0.6 oz pur e alcohol) Comments No Sex and Gender Information Value Date Recorded Sex Assigned at Not on file Legal Sex Female 9:29 AM INTERNATIONAL EDITORIAL PRODUCER Gender Identity Not on file Sexual Orientation Not on file documented as of this encounter Plan of Treatment Not on file documented as of this encounter Visit Diagnoses Not on filedocumented in this encounter Care Teams Content Development Manager Relationship Specialty Start Date End Date Robert Zuniga MD [address] [place], [place] [id number] PCP - General Family Medicine 09/18/15 11/13/19 Karthik Benjamin MD [address] [place] [address] PCP - General 11/14/19 09/20/22 Henry Hinojosa MD [address] [address] PCP - General 09/21/22 documented as of this encounter
--- OUTSIDE RECORDS SUMMARY | 2025-02-22 14:54 | XMS_ITS | Clinical Summary ---
Author Organization [facility] [employer] Address [address] [place] [address] Care Team Providers Care [employer] Name Role Phone Henry Hinojosa MD Primary Care Provider [phone] Source Comments [facility] [employer],non-owned Affiliates and Associated Physician Practices is amultiple site organization consisting of ambulatory clinics and hospital sitesin [place], [place], [place] and [place]. This disclosure is being madepursuant to the Care Everywhere program and may not contain all informatio navailable regarding this patient. Last updated 18.[facility] [employer] Allergies Active Allergy Reactions Criticality Noted Date Comments Penicillins Swelling 09/28/2015 Medications * Be aware that medications may not be up to date on this document. Alwaysverify current medications with the patient. FLUoxetine (PROZAC) 20 MG capsule Take 20 [...] 40 mg by mouth every evening Active budesonide-form oterol (SYMBICORT) 160-4.5 MCG/ACT inhaler Inhale 2 Puffs [...] (ROBAXIN) 500 MG tablet 4 times daily 5 Active hydrocodone-arleen taminophen (NORCO) 5-325 MG tablet Take 1 Tab by mouth every 6 hours as needed for Pain 40 Tab 0 6 Active aspirin (ASPIRIN) 81 MG tablet Take 81 mg by mouth once daily Active Cholecalciferol (VITAMIN D3) 3000 UNITSIndication s:takes two tablets Take 1,000 Units by mouth once daily Reasons: takes two tablets Active multivitamin daily (THERAGRAN) tablet Take 1 Tab by mouth daily with food Active hydrocodone-arleen taminophen (NORCO) 5-325 MG tablet Take 1 Tab by mouth every 4 hours as needed for Pain 30 Tab 0 6 Active Active Problems Problem Noted Date Diagnosed [...] on file Legal Sex Female 9:29 AM ASSEMBLER KNIFE Gender Identity Not on file Sexual Orientation Not on file Last Filed Vital Signs Vital Sign Reading Time Taken Comments Blood Pressure 125/65 12/05/2015 3:20 PM ASSEMBLER KNIFE Pulse 72 12/05/2015 3:20 PM ASSEMBLER KNIFE Temperature 36.9 C (98.4 F) 12/05/2015 3:20 PM ASSEMBLER KNIFE Respiratory Rate 20 12/05/2015 3:20 PM ASSEMBLER KNIFE Oxygen Saturation 95% 12/05/2015 3:20 PM ASSEMBLER KNIFE Inhaled Oxygen Concentration 21% 09/29/2015 9 :38 AM ASSEMBLER KNIFE Weight 126.6 kg (279 lb) 12/03/2015 7:24 AM ASSEMBLER KNIFE Height 160 cm (5' 3 ) 12/03/2015 7:24 AM ASSEMBLER KNIFE Body Mass Index 49.42 12/03/2015 7:24 AM ASSEMBLER KNIFE Plan of Treatment Health Maintenance Due Date Last Done Comments BONE DENSITY TESTING 1940 DTAP/TDAP/TD VACCINES (1 - Tdap) 1959 PNEUMOCOCCAL VACCINE 50+ (1 of 2 - PCV) 1959 ZOSTER VACCINE (1 of 2) 1990 Respiratory Syncytial Virus (RSV) Vaccine Pt: or over 60 yrs (1 - 1-dose 75+ series) 2015 COVID-19 VACCINE (1 - 2023-2 5 season) 2024 DEPRESSION SCREENING 11/06/2024 MEDICARE AWV CALENDAR YEAR 2024 INFLUENZA VACCINE (Season Ended) 2025 HEPATITIS B VACCINE Aged Out No longe r eligible based on patient's age to complete this topic HIB VACCINE Aged Out No longer eligi ble based on patient's age to complete this topic HPV VACCINE Aged Out No longer eligi ble based on patient's age to complete this topic MENINGOCOCCAL (Group B) VACC INE SHARED DECISION-MAKING Aged Out No longer eligibl e based on patient's age to complete this topic MENINGOCOCCAL GROUPS A/C/Y/W VACCINE Aged Out No longer eligible b ased on patient's age to complete this topic Insurance COVENTRY MEDICARE [facility] Care Address: [address] [address] COMMERCIAL GENERIC AETNA MEDICARE ADV MEDICAID [place] SELF PAY NO INSURANCE Member Subscriber Plan / Payer (Ef fective for All Dates) Name:Stephon Hernandez Member ID:Not on file Relation to Subscriber:Not on file Name:STEPHON HERNANDEZ Subscriber ID:Not on file (Home) Address: [address] [place] [id number] Payer ID:Not on file Group ID:Not on file Type:Self Pay Address: [place], [place] AETNA MEDICAID - OUT OF STATE Advance Directives * Full Code (Latest Code Status on File) Date Activated Date Inactivated Comments 12/03/2015 1:10 PM 12/05/2015 8:14 PM Care Teams [employer] Relationship Specialty Start Date End Date Henry Hinojosa MD [address] [place] [address] PCP - General 09/21/22
--- OUTSIDE RECORDS SUMMARY | 2025-02-22 14:54 | XMS_ITS | Continuity of Care Document ---
Author Organization [facility] Address [address] [address] Insurance Providers Payer Plan Claims Address Claims Phone Policy Number Group Number Relation Employer Guarantor Name Guarantor Guarantor Address Guarantor Phone Aena [facility] [id number] Self Arielle Pittman [address] [place] [id number] Coven try [facility] [id number] Mele Pittman [address] [place] [address] Comme ial 1 [id number] Self Arielle Pittman [address] [place], [place] [id number] Problems Condition ICD9 code ICD10 code SNOMED code Start Date End Date S tatus Acute cystitis with hematuria N30.01 Results No Results Allergies, adverse reactions, alerts No known allergies and adverse reactions Medications No administered medications reported Vital Signs No vital signs reported Social History No smoking Hx information available
--- NOTE | 2025-02-22 15:27 | ED.EXTPRO ---
HPI - Extremity Problem General Chief complaint: Extremity Problem,Nontraumatic <DANIEL Castro Last Filed: 02/23/25 00:58> Stated complaint: large hematoma to leg <DANIEL Castro Last Filed: 02/23/25 00:58> Time Seen by Provider: 02/22/25 14:40 <DANIEL Castro Last Filed: 02/23/25 00:58> Source: patient and RN notes reviewed <DANIEL Castro Last Filed: 02/23/25 00:58> Mode of arrival: EMS <DANIEL Castro Last Filed: 02/23/25 00:58> Limitations: dementia <DANIEL Castro Last Filed: 02/23/25 00:58> History of Present Illness HPI Narrative: Patient is an 84-year-old female, past medical history of dementia, hypothyroidism, CHF, PVD, RA, history of blood clots on Eliquis, who presents to the ED via EMS with report of hematoma to right lower extremity. Patient is a resident of [facility]. Per assisted report, patient had a skin tear to her R lower extremity. They were changing the bandage today and reportedly noticed a large hematoma. Sent here for further evaluation. Unsure when the original injury occurred. Patient states it has been like that for several days. She c/o pain to her R lower leg. Patient is on eliquis. Denies numbness. <DANIEL Castro Last Filed: 02/23/25 00:58> Related Data Home medications: Home Medications ?Medication ?Instructions ?Recorded ?Confirmed ?Last Taken ?Type meclizine 25 mg tablet 25 mg PO Q8H PRN Dizziness 08/31/23 12/28/24 Unknown History melatonin 10 mg tablet 10 mg PO HS PRN Insomnia 08/31/23 12/28/24 Unknown History donepezil 5 mg tablet 10 mg PO DAILY 03/01/24 12/28/24 Unknown History atorvastatin 20 mg tablet 20 mg PO QPM 11/07/24 12/28/24 Unknown History losartan 50 mg tablet 50 mg PO QHS 11/07/24 12/28/24 Unknown History <Neetu Kumar PA-C - Last Filed: 02/23/25 00:58> Allergies/Adverse reactions: Allergies Allergy/AdvReac Type Severity Reaction Status Date / Time Penicillins Allergy Severe Hives Verified 12/09/24 10:28 <Neetu Kumar PA-C - Last Filed: 02/23/25 00:58> Review of Systems Review of Systems: All systems reviewed & are unremarkable except as noted in HPI. <Neetu Kumar PA-C - Last Filed: 02/23/25 00:58> All systems reviewed & are unremarkable except as noted in HPI and below <Neetu Kumar PA-C - Last Filed: 02/23/25 00:58> [facility] Past Medical History Medical History: Medical History Kidney stones Diastolic dysfunction Vitamin D deficiency Chronic kidney disease, stage 3 Deep venous thrombosis COPD mixed type Peripheral vascular disease Pancreatitis Right kidney mass Chronic diarrhea Umbilical hernia Anxiety and depression Gastroesophageal reflux disease Hypertension Small bowel obstruction Rheumatoid arthritis Chronic venous stasis dermatitis Closed fracture of greater tuberosity of humerus Fracture of neck of humerus Hypothyroidism (acquired) Depression <Neetu Kumar PA-C - Last Filed: 02/23/25 00:58> Surgical History Surgical History: Surgical History History of cataract extraction with lens replacement (2003) History of evacuation of hematoma (2013) lateral thigh History of section X1 History of cholecystectomy <Neetu Kumar PA-C - Last Filed: 02/23/25 00:58> Family History Family History: Family History Sibling Patient's sister is in good health Mother Diabetes mellitus, Onset Age: 41 Father Heart attack Cardiovascular disease <Neetu Kumar PA-C - Last Filed: 02/23/25 00:58> Social History Social History: Social History Social History: Emergency contact: Karuna Stone, casting molder ([phone]). Code status: Do not resuscitate. Smoking packs per day: 2 Smoking cigarettes per day: 40.0 Years smoked: 50 Smoking pack-years: 100.00 Smoking status: Former smoker Second hand tobacco smoke exposure: No Alcohol intake: never Substance use: never Substance use type: does not use Do You Feel Safe in your Home?: Yes Lack of Transportation: No Lack of Food: Never True Current Housing: I Have Housing Concerned About Future Housing: No Difficulty Paying Gas/Electric Bills: No Difficulty Paying for Meds: No Currently Unemployed: No Education: Decline to Answer Difficulty w/ Childcare or Family Care: No Living arrangements: with friend(s) Additional living arrangements comments: Lives with casting molder/friend, Karuna. 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 Spiritual care concerns: No <Neetu Kumar PA-C - Last Filed: 02/23/25 00:58> Exam Narrative: GENERAL: Elderly, non-toxic, in no acute distress. HEAD: Normocephalic, atraumatic. RESPIRATORY: Airway patent, respirations nonlabored. Clear to auscultation bilaterally, no rales, rhonchi, wheezing. CARDIOVASCULAR: Regular rate and rhythm. Pedal pulses intact, slightly difficult to palpate d/t swelling but ultimately able to palpate and very easily doppler. MUSCULOSKELETAL: Moves all extremities. R lower extremity with diffuse swelling, bruising from mid martinez/calf, extending into ankle and dorsal foot. Large irregular shaped hematoma formation to right lower leg, nearly circumferential around lower calf. Diffuse TTP. Sensation intact. Able to actively flex/extend at R ankle w/o severe pain. Sensation intact throughout toes. Capillary refill intact in toes. SKIN: Warm, dry, normal color. NEURO: A&O X2, some confusion. Speech clear. No ataxic movements. PSYCHIATRIC: Appropriate mood and affect. Normal interaction. <Neetu Kumar PA-C - Last Filed: 02/23/25 00:58> Course PRIMARY MILL ROLLER/PA Physician Supervision For this patient encounter, I reviewed the PRIMARY MILL ROLLER or PA documentation, treatment plan, and medical decision making; and I had [id number] time with this patient. <Raul Arnett MD - Last Filed: 02/23/25 10:44> Vital Signs Vital signs: Vital Signs Temperature 97.9 F 02/22/25 14:12 Pulse Rate 77 02/22/25 14:12 Respiratory Rate 16 02/22/25 14:12 Blood Pressure 156/65 H 02/22/25 14:12 Pulse Oximetry 98 02/22/25 14:12 Oxygen Delivery Room Air 02/22/25 14:12 Temperature 97.9 F 02/22/25 14:12 Pulse Rate 60 02/22/25 21:30 Respiratory Rate 16 02/22/25 21:30 Blood Pressure 118/75 02/22/25 21:30 Pulse Oximetry 99 02/22/25 21:30 Oxygen Delivery Room Air 02/22/25 14:12 <Neetu Kumar PA-C - Last Filed: 02/23/25 00:58> Vital Signs Temperature 97.9 F 02/22/25 14:12 Pulse Rate 77 02/22/25 14:12 Respiratory Rate 16 02/22/25 14:12 Blood Pressure 156/65 H 02/22/25 14:12 Pulse Oximetry 98 02/22/25 14:12 Oxygen Delivery Room Air 02/22/25 14:12 Temperature 97.9 F 02/22/25 14:12 Pulse Rate 60 02/22/25 21:30 Respiratory Rate 16 02/22/25 21:30 Blood Pressure 118/75 02/22/25 21:30 Pulse Oximetry 99 02/22/25 21:30 Oxygen Delivery Room Air 02/22/25 14:12 <Raul Arnett MD - Last Filed: 02/23/25 10:44> MDM - Extremity (Nontraumatic) MDM Narrative Medical decision making narrative: Patient presented to ED from local [place] facility with report of hematoma to R lower extremity. Vital signs are stable. Patient has history of dementia and frequently calling out to nurse's station, but appears in no acute distress. She has pain with palpation anywhere on her body, however does complain of persistent pain throughout right lower leg where hematoma formation is present. Unknown when the original injury occurred. Given pain medication. Patient is on Eliquis. Laboratory studies with white blood cell count of 11.7. H&H is stable. Consistent with previous records. Coags within normal range. Xray R tib/fib negative for osseous abnormality. Venous doppler negative for DVT. CTA RLE w/ evidence of hematoma, no active extravasation. Does show other incidental findings, possibility of vascular issues of left lower extremity, which is not the extremity of concern. Patient has good peripheral pulses, good temperature/color legs, good capillary refill. I have no concern for arterial occlusion at this time. Discussed case with Dr. Whalen, orthopedics, in ED to see patient. Advised no indication for drainage. Recommended wrapping leg with xeroform dressing, frequent dressing changes, abx to cover for potential cellulitis, f/u as outpatient. Patient will be started on Keflex. Given first dose in the ED. Dressing placed in the ED with QIANA bandage for compression. She is safe for D/C back to assisted at this time. Return precautions discussed on paperwork. Advised to follow-up with orthopedics. D/C in stable condition. <Neetu Kumar PA-C - Last Filed: 02/23/25 00:58> Medical Records Attestation: I reviewed the patient's medical records. <Neetu Kumar PA-C - Last Filed: 02/23/25 00:58> Lab Data Attestation: I reviewed the patient's lab results. <Neetu Kumar PA-C - Last Filed: 02/23/25 00:58> Result diagrams: 02/22/25 16:04 02/22/25 16:04 <Neetu Kumar PA-C - Last Filed: 02/23/25 00:58> Labs: Lab Results 02/22/25 02/22/25 Range/Units 16:04 16:04 WBC 11.7 H (4.5-10.0) K/mm3 RBC 3.56 L (4.2-5.4) M/mm3 Hgb 10.8 L (12.0-15.0) g/dL Hct 33.4 L (37.0-47.0) % MCV 93.8 (80-100) fl MCH 30.3 (26-34) pg MCHC 32.3 (32-36) g/dl RDW 15.1 H (11.5-14.5) % Plt Count 343 (150-375) k/mm3 MPV 10.9 H (7.4-10.4) fl Immature Gran % (Auto) 0.4 (0-0.5) % Neut % (Auto) 82.5 H (45.5-73.1) % Lymph % (Auto) 12.9 L (18.3-44.2) % [place] % (Auto) 3.7 (2.6-8.5) % Eos % (Auto) 0.1 (0-4.4) % Baso % (Auto) 0.4 (0.2-1.2) % Lymph # (Auto) 1.51 (0.9-3.2) K/mm3 [place] # (Auto) 0.4 (0.1-0.6) K/mm3 Eos # (Auto) 0.0 (0-0.3) K/mm3 Baso # (Auto) 0.1 (0.0-0.1) K/mm3 Abs Immat Gran (auto) 0.05 H (0.00-0.031) K/mm3 Absolute Neuts (auto) 9.6 H (1.3-6.7) K/mm3 Absolute Nucleated RBC 0.000 (0.0-0.012) K/mm3 Nucleated RBC % 0.0 (0.0-0.2) % PT 14.3 (11.1-14.7) Seconds INR 1.1 APTT 29.2 (22.3-36.8) Seconds Sodium 134 L (137-145) mmol/L Potassium 4.7 (3.4-5.0) mmol/L Chloride 101 (98-107) mmol/L Carbon Dioxide 29 (22-30) mmol/L Anion Gap 4 (4-12) mmol/L BUN 22 H (7-17) mg/dL Creatinine 1.00 (0.7-1.0) mg/dL Estim Creat Clear Calc 32 ml/min Estimated GFR 53 L (59 - ) Glucose 115 H (65-110) mg/dL Calcium 8.1 L (8.4-10.2) mg/dL NT-Pro-B Natriuret Pep 2950 H Cancelled (19.9-100) pg/mL <Neetu Kumar PA-C - Last Filed: 02/23/25 00:58> Lab Results 02/22/25 02/22/25 Range/Units 16:04 16:04 WBC 11.7 H (4.5-10.0) K/mm3 RBC 3.56 L (4.2-5.4) M/mm3 Hgb 10.8 L (12.0-15.0) g/dL Hct 33.4 L (37.0-47.0) % MCV 93.8 (80-100) fl MCH 30.3 (26-34) pg MCHC 32.3 (32-36) g/dl RDW 15.1 H (11.5-14.5) % Plt Count 343 (150-375) k/mm3 MPV 10.9 H (7.4-10.4) fl Immature Gran % (Auto) 0.4 (0-0.5) % Neut % (Auto) 82.5 H (45.5-73.1) % Lymph % (Auto) 12.9 L (18.3-44.2) % [place] % (Auto) 3.7 (2.6-8.5) % Eos % (Auto) 0.1 (0-4.4) % Baso % (Auto) 0.4 (0.2-1.2) % Lymph # (Auto) 1.51 (0.9-3.2) K/mm3 [place] # (Auto) 0.4 (0.1-0.6) K/mm3 Eos # (Auto) 0.0 (0-0.3) K/mm3 Baso # (Auto) 0.1 (0.0-0.1) K/mm3 Abs Immat Gran (auto) 0.05 H (0.00-0.031) K/mm3 Absolute Neuts (auto) 9.6 H (1.3-6.7) K/mm3 Absolute Nucleated RBC 0.000 (0.0-0.012) K/mm3 Nucleated RBC % 0.0 (0.0-0.2) % PT 14.3 (11.1-14.7) Seconds INR 1.1 APTT 29.2 (22.3-36.8) Seconds Sodium 134 L (137-145) mmol/L Potassium 4.7 (3.4-5.0) mmol/L Chloride 101 (98-107) mmol/L Carbon Dioxide 29 (22-30) mmol/L Anion Gap 4 (4-12) mmol/L BUN 22 H (7-17) mg/dL Creatinine 1.00 (0.7-1.0) mg/dL Estim Creat Clear Calc 32 ml/min Estimated GFR 53 L (59 - ) Glucose 115 H (65-110) mg/dL Calcium 8.1 L (8.4-10.2) mg/dL NT-Pro-B Natriuret Pep 2950 H Cancelled (19.9-100) pg/mL <Raul Arnett MD - Last Filed: 02/23/25 10:44> Imaging Data Attestation: I personally reviewed and interpreted this imaging study as follows: <Neetu Kumar PA-C - Last Filed: 02/23/25 00:58> Radiologist's impression: ITS Impressions Tibia/Fibula X-Ray 02/22/25 15:06 IMPRESSION: No acute osseous abnormality right leg. Soft tissue swelling opposite the medial and lateral midshaft which may be posttraumatic hematoma but a mass cannot be excluded. Clinical correlation and follow-up advised. Venous Doppler Study 02/22/25 15:43 IMPRESSION: Negative right lower extremity venous US. No deep vein thrombosis. Lower Extremity CTA 02/22/25 18:12 IMPRESSION: A mass seen in the area of the mid right calf with edema extending more inferiorly to the level of the ankle. Hematoma is highly suggestive. Further evaluation advised. Nonvisualization of the distal left anterior and posterior tibial arteries. Further evaluation is advised. Multiple areas of narrowing in the right and left superficial femoral arteries. Further evaluation advised. Patchy areas of increased density in the kidneys which may indicate pyelonephritis versus nephrocalcinosis. Further evaluation is advised Fluid in the uterine cavity with soft tissue density inferiorly. Clinical and further evaluation is advised to exclude endometrial carcinoma.. <Neetu Kumar PA-C - Last Filed: 02/23/25 00:58> Discharge Plan Discharge Clinical Impression: Hematoma of right lower leg, Cellulitis of right lower leg Dementia Qualifiers: Dementia type: unspecified type Dementia severity: unspecified severity Dementia behavioral or psychological symptom: unspecified whether behavioral, psychotic, or mood disturbance or anxiety Qualified Code(s): F03.90 - Unspecified dementia, unspecified severity, without behavioral disturbance, psychotic disturbance, mood disturbance, and anxiety <DANIEL Castro Last Filed: 02/23/25 00:58> Patient Disposition: NH [facility]/Asst Living <DANIEL Castro Last Filed: 02/23/25 00:58> Condition: Stable <DANIEL Castro Last Filed: 02/23/25 00:58> Instructions: Antibiotic Form, Cellulitis (ED), Hematoma (ED) <DANIEL Castro Last Filed: 02/23/25 00:58> Additional Instructions: Recommend daily dressing changes to right lower extremity. Keep wound clean and dry. Re-wrap with QIANA bandage to provide compression. Elevated leg whenever patient is able. Take antibiotics as prescribed for cellulitis. Patient will need to follow-up with Orthopedics for further evaluation. Return if patient experiences worsening or severe pain, recurrent injury or bleeding, passing out, persistent fevers, or any other symptoms of concern. <Neetu Kumar PA-C - Last Filed: 02/23/25 00:58> Patient Language: Armenian <DANIEL Castro Last Filed: 02/23/25 00:58> Prescriptions: New cephalexin 500 mg capsule 500 mg PO Q6H 7 Days Qty: 28 0RF No Action meclizine 25 mg tablet 25 mg PO Q8H PRN (Reason: Dizziness) Rx Instructions: TAKE 1 TABLET BY MOUTH THREE TIMES DAILY NEEDED FOR DIZZINESS melatonin 10 mg Tablet 10 mg PO HS PRN (Reason: Insomnia) donepezil 5 mg tablet 10 mg PO DAILY calcium carbonate [Oyster Shell Calcium 500] 500 mg calcium (1,250 mg) Tablet 1,000 mg PO 1000,1400,1800 Qty: 30 0RF ergocalciferol (vitamin D2) [Vitamin D2] 1,250 mcg (50,000 unit) Capsule 1,250 mcg PO WEEKLY Qty: 7 0RF guaifenesin [Mucus Relief ER] 600 mg Tablet Extended Release 12hr 600 mg PO Q12HR Qty: 30 0RF losartan 50 mg tablet 50 mg PO QHS atorvastatin 20 mg tablet 20 mg PO QPM loperamide 2 mg Capsule 2 mg PO PRN PRN (Reason: Diarrhea) Qty: 14 0RF cholestyramine (with sugar) 4 gram Powder In Packet 1 ea PO DAILY@1000 Qty: 14 0RF acetaminophen 325 mg Tablet 650 mg PO Q4H PRN (Reason: Mild Pain (1-3) Or Fever) Qty: 10 0RF metronidazole 500 mg Tablet 500 mg PO Q8HR Qty: 7 0RF levothyroxine [Synthroid] 100 mcg Tablet 100 mcg PO DAILY@0630 Qty: 30 0RF cefdinir 300 mg Capsule 300 mg PO Q12HR Qty: 5 0RF Eliquis 5 mg Tablet 10 mg PO Q12HR Qty: 30 0RF Rx Instructions: Eliquis 10mg Q12hr through the morning of January 08 then decrease to 5mg Q12hr starting the evening of January 08 magnesium oxide 400 mg (241.3 mg magnesium) Tablet 400 mg PO DAILY Qty: 30 0RF pantoprazole 40 mg tablet,delayed release (DR/EC) 40 mg PO BID 30 Days Qty: 180 3RF <Neetu Kumar PA-C - Last Filed: 02/23/25 00:58> Follow-up/Referrals: Henry Hinojosa MD [Primary Care Provider] - Te Whalen MD [Physician] - (ORTHOPEDICS) <Neetu Kumar PA-C - Last Filed: 02/23/25 00:58> Time of Disposition: 18:48 <Neetu Kumar PA-C - Last Filed: 02/23/25 00:58> 18:48 <Raul Arnett MD - Last Filed: 02/23/25 10:44>
--- NOTE | 2025-02-22 15:32 | PC.NURSE ---
patient called out to go to the bathroom. called Lisbeth Amador RN to ask if it was appropriate to place patient on purewick. per Lisbeth Anderson RN, purewick is okay. patient linens changed, depend was dry. patient made aware that she can urinate and it will be caught by the purewick. patient states that her leg hurts when she moves it, advised patient to stop moving leg. patient continues to lift leg off bed and yell ow . RN Lisbeth andres.
[2025-02-22] MEDS: ACETAMINOPHEN 500 MG TABLET 1000 MG PO (16:16)
[2025-02-22 16:21] LABS: Anion Gap 4 mmol/L (4-12); Blood Urea Nitrogen 22 mg/dL (7-17); Calcium 8.1 mg/dL (8.4-10.2); Carbon Dioxide 29 mmol/L (22-30); Chloride 101 mmol/L (98-107); Estimated CRCL calculation 32 ml/min; Estimated Glomerular Filt Rate 53; Glucose 115 mg/dL (65-110); Potassium 4.7 mmol/L (3.4-5.0); Sodium 134 mmol/L (137-145)
[2025-02-22 16:23] LABS: Basophils Absolute Auto 0.1 K/mm3 (0.0-0.1); Basophils Percent Auto 0.4 % (0.2-1.2); Eosinophils Percent Auto 0.1 % (0-4.4); Hematocrit 33.4 % (37.0-47.0); Hemoglobin 10.8 g/dL (12.0-15.0); Immature Granulocyte Absolute 0.05 K/mm3 (0.00-0.031); Immature Granulocyte Percent A 0.4 % (0-0.5); Lymphocytes Absolute Auto 1.51 K/mm3 (0.9-3.2); Lymphocytes Percent Auto 12.9 % (18.3-44.2); Mean Corpuscular HGB Conc 32.3 g/dl (32-36); Mean Corpuscular Hemoglobin 30.3 pg (26-34); Mean Corpuscular Volume 93.8 fl (80-100); Mean Platelet Volume 10.9 fl (7.4-10.4); Monocytes Absolute Auto 0.4 K/mm3 (0.1-0.6); Monocytes Percent Auto 3.7 % (2.6-8.5); Neutrophils Absolute Auto 9.6 K/mm3 (1.3-6.7); Neutrophils Percent Auto 82.5 % (45.5-73.1); Platelet Count Result 343 k/mm3 (150-375); Red Blood Count 3.56 M/mm3 (4.2-5.4); Red Cell Distribution Width 15.1 % (11.5-14.5); White Blood Count 11.7 K/mm3 (4.5-10.0)
[2025-02-22 16:24] LABS: INR 1.1; Prothrombin Time 14.3 Seconds (11.1-14.7)
[2025-02-22 16:25] LABS: Partial Thromboplastin Time 29.2 Seconds (22.3-36.8)
--- NOTE | 2025-02-22 16:29 | P.PNOP_ITS ---
Progress Note: A&P Assessment and Plan (1) Ulcer of right leg: Code(s): L97.919 - Non-pressure chronic ulcer of unspecified part of right lower leg with unspecified severity Status: Acute Plan Recommend sterile dressing with Xeroform with daily dressing changes. Follow up with Dr Whalen [phone] next week No sign of compartment syndrome Time Spent With Patient Time with patient: less than 15 minutes Subjective Subjective Date/Time Seen: 02/22/25 16:29 Principal diagnosis: Right Leg DVT with Superficial Hematoma Exam Narrative: Right left with large hematoma bullous at mid leg with no sign of active infection or compartment syndrome Objective Data Vital Signs Vital Signs: Vital Signs - 24 hr 02/22/25 14:12 02/22/25 16:05 Temperature 36.6 C Pulse Rate 77 68 Respiratory Rate 16 16 Blood Pressure 156/65 H 126/62 Pulse Oximetry 98 100 Oxygen Delivery Room Air Meds/Results Radiology Results: ITS Impressions Tibia/Fibula X-Ray 02/22/25 15:06 IMPRESSION: No acute osseous abnormality right leg. Soft tissue swelling opposite the medial and lateral midshaft which may be posttraumatic hematoma but a mass cannot be excluded. Clinical correlation and follow-up advised. Venous Doppler Study 02/22/25 15:43 IMPRESSION: Negative right lower extremity venous US. No deep vein thrombosis. Labs Labs: Laboratory Results - last 24 hr 02/22/25 16:04 WBC 11.7 H RBC 3.56 L Hgb 10.8 L Hct 33.4 L MCV 93.8 MCH 30.3 MCHC 32.3 RDW 15.1 H Plt Count 343 MPV 10.9 H Immature Gran % (Auto) 0.4 Neut % (Auto) 82.5 H Lymph % (Auto) 12.9 L [place] % (Auto) 3.7 Eos % (Auto) 0.1 Baso % (Auto) 0.4 Lymph # (Auto) 1.51 [place] # (Auto) 0.4 Eos # (Auto) 0.0 Baso # (Auto) 0.1 Abs Immat Gran (auto) 0.05 H Absolute Neuts (auto) 9.6 H Absolute Nucleated RBC 0.000 Nucleated RBC % 0.0 PT 14.3 INR 1.1 APTT 29.2 Sodium 134 L Potassium 4.7 Chloride 101 Carbon Dioxide 29 Anion Gap 4 BUN 22 H Creatinine 1.00 Estim Creat Clear Calc 32 Estimated GFR 53 L Glucose 115 H Calcium 8.1 L NT-Pro-B Natriuret Pep Cancelled
[2025-02-22 16:31] LABS: NT Pro B Type Natriuretic Pept 2950 pg/mL (19.9-100)
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
[2025-02-22] MEDS: traMADol HCL (*CRX) 25 MG TABLET PO (18:35)
--- NOTE | 2025-02-22 19:00 | PC.NURSE ---
Report given to REBECA Paz at [facility]. All questions answered. ED nursing secretary to set up transport for pt. to return to [facility].
[2025-02-22] MEDS: CEPHALEXIN 500 MG CAPSULE PO (20:50)
== END 2025-02-22 21:41 ==
PROVIDERS: Emergency Provider Physician Assistant; PCP Emergency Medicine
DX: L03.115 Cellulitis of right lower limb (principal); L97.219 Non-pressure chronic ulcer of right calf with unspecified severity; S80.11XA Contusion of right lower leg, initial encounter; F03.90 Unspecified dementia, unspecified severity, without behavioral disturbance, psychotic disturbance, mood disturbance, and anxiety; I13.0 Hypertensive heart and chronic kidney disease with heart failure and stage 1 through stage 4 chronic kidney disease, or unspecified chronic kidney disease; N18.30 Chronic kidney disease, stage 3 unspecified; I50.9 Heart failure, unspecified; I73.9 Peripheral vascular disease, unspecified; I87.2 Venous insufficiency (chronic) (peripheral); J43.9 Emphysema, unspecified; E03.9 Hypothyroidism, unspecified; M06.9 Rheumatoid arthritis, unspecified; K21.9 Gastro-esophageal reflux disease without esophagitis; F41.9 Anxiety disorder, unspecified; F32.A Depression, unspecified; Z66 Do not resuscitate; Z86.718 Personal history of other venous thrombosis and embolism; Z87.891 Personal history of nicotine dependence; Z96.1 Presence of intraocular lens; Z98.49 Cataract extraction status, unspecified eye; Z90.49 Acquired absence of other specified parts of digestive tract; Z79.01 Long term (current) use of anticoagulants; Z79.899 Other long term (current) drug therapy; X58.XXXA Exposure to other specified factors, initial encounter
CPT/HCPCS: 36415; 73590; 73706; 80048; 83880; 85025; 85610; 85730; 93971; 99284; A9270; Q9967

== ENCOUNTER 2025-02-24 12:45 | Inpatient (IN) | payer MEDICARE, MEDICAID, SELFPAY ==
[2025-02-24] VITALS (26 sets, daily range): BP systolic 112–147; BP diastolic 43–69; PULSE 45–59; RESP 6–20; TEMP 36.4; O2SAT 97–100
--- NOTE | ~2025-02-24 | CT_ITS ---
CT OF right lower extremity EXAMINATION: CT LE RT w con DATE: 02/24/2025 21:16 INDICATION: Large hematoma TECHNIQUE: Computed tomography (CT) of the right lower extremity was performed with 100 mL Omnipaque 350 intravenous contrast. Automated exposure control and iterative reconstruction technique were empl oyed. The dose-length product was 1295.36 mGy-cm. COMPARISON: 02/22/2025 FINDINGS: Osteopenia. Moderate degenerative changes in the knee, ankle, and foot. No fracture or dislocation. N o erosion. No lytic or blastic lesion. Extensive subcutaneous edema of the lower leg. Large heterogeneous subcutaneous collection in the lower leg, nearly circumferential, mostly hyperden se and therefore likely comprised of acute clot. Proximal extent of the collection posteriorly at the level of the proximal/mid tibia, extending inferiorly and medially, wrapping around the lower leg a few centimeters above the level of the ankle, with a smaller component that wraps around anteriorly a nd laterally at the level of the mid martinez. No definite acute extravasation within the collection. Int erval compression or thrombosis of multiple lower leg veins were previously seen running inside the c ollection. There is mild flattening and lateral extension of the posterior and proximal portion of th e collection, but otherwise it is unchanged in size/morphology. IMPRESSION: Large right lower leg subcutaneous hematoma, grossly unchanged in size, without definite evidence of active extravasation. Reviewed, dictated and finalized at location K.
--- NOTE | ~2025-02-24 | XR_ITS ---
XR tibia fibula RT 2V Ordering provider: Fariba Last MD History: . swellling pain . Comparison: February 22, 2025 FINDINGS: BONES: No acute fracture or dislocation. JOINT SPACES: Normal. SOFT TISSUES: Soft tissue swelling seen in the midshaft area which is increased compared to previous examination. IMPRESSION: No acute osseous abnormality right leg. Soft tissue swelling which is increased compared to previous examination. Reviewed, dictated and finalized at location A.
[2025-02-24 16:22] LABS: Basophils Absolute Auto 0.1 K/mm3 (0.0-0.1); Basophils Percent Auto 0.4 % (0.2-1.2); Hematocrit 27.8 % (37.0-47.0); Immature Granulocyte Absolute 0.05 K/mm3 (0.00-0.031); Immature Granulocyte Percent A 0.4 % (0-0.5); Lymphocytes Absolute Auto 1.72 K/mm3 (0.9-3.2); Lymphocytes Percent Auto 13.1 % (18.3-44.2); Mean Corpuscular HGB Conc 32.4 g/dl (32-36); Mean Corpuscular Hemoglobin 30.9 pg (26-34); Mean Corpuscular Volume 95.5 fl (80-100); Mean Platelet Volume 11.1 fl (7.4-10.4); Monocytes Absolute Auto 0.5 K/mm3 (0.1-0.6); Monocytes Percent Auto 4.1 % (2.6-8.5); Neutrophils Absolute Auto 10.8 K/mm3 (1.3-6.7); Platelet Count Result 333 k/mm3 (150-375); Red Blood Count 2.91 M/mm3 (4.2-5.4); Red Cell Distribution Width 15.7 % (11.5-14.5); White Blood Count 13.2 K/mm3 (4.5-10.0)
[2025-02-24 16:31] LABS: Alanine Aminotransferase 30 U/L (6-35); Albumin Level 2.6 g/dL (3.5-5.1); Alkaline Phosphatase 102 U/L (38-126); Anion Gap 6 mmol/L (4-12); Aspartate Amino Transferase 36 U/L (14-36); Bilirubin,Total 0.3 mg/dL (0.2-1.3); Blood Urea Nitrogen 29 mg/dL (7-17); Calcium 7.8 mg/dL (8.4-10.2); Carbon Dioxide 24 mmol/L (22-30); Chloride 104 mmol/L (98-107); Estimated CRCL calculation 24 ml/min; Estimated Glomerular Filt Rate 45; Glucose 99 mg/dL (65-110); Potassium 4.6 mmol/L (3.4-5.0); Sodium 134 mmol/L (137-145)
[2025-02-24 16:36] LABS: INR 1.3; Partial Thromboplastin Time 26.8 Seconds (22.3-36.8); Prothrombin Time 16.7 Seconds (11.1-14.7)
--- NOTE | 2025-02-24 16:55 | ED.WOUNDLAC ---
HPI - Wound/Laceration General Chief Complaint: Wound/Laceration <Fariba Last MD - Last Filed: 02/24/25 21:43> Stated Complaint: b/l le pain <Fariba Last MD - Last Filed: 02/24/25 21:43> Time Seen by Provider: 02/24/25 15:38 <Fariba Last MD - Last Filed: 02/24/25 21:43> Source: patient, EMS, RN notes reviewed and old records reviewed <Fariba Last MD - Last Filed: 02/24/25 21:43> Mode of arrival: EMS <Fariba Last MD - Last Filed: 02/24/25 21:43> History of Present Illness HPI narrative: This is an 84 year old female on eliquis who presents for evaluation bilateral leg pain and right leg swelling. Patient was evaluated in ER 2 days ago for right leg hematoma. She had CT lower extremity, venous doppler and she was discharged with antibiotics to prevent infection. Patient is poor historian but she denies any injury. She states she suffered spontaneous right lower leg hematoma and left leg wound a few days ago. She has bandage to left leg with date 02/19/25. She reports minimal pain to left leg. She reports pain to right leg and right leg swelling. <Fariba Last MD - Last Filed: 02/24/25 21:43> Related Data Home Medications: Home Medications ?Medication ?Instructions ?Recorded ?Confirmed ?Last Taken ?Type meclizine 25 mg tablet 25 mg PO Q8H PRN Dizziness 08/31/23 12/28/24 Unknown History melatonin 10 mg tablet 10 mg PO HS PRN Insomnia 08/31/23 12/28/24 Unknown History donepezil 5 mg tablet 10 mg PO DAILY 03/01/24 12/28/24 Unknown History atorvastatin 20 mg tablet 20 mg PO QPM 11/07/24 12/28/24 Unknown History losartan 50 mg tablet 50 mg PO QHS 11/07/24 12/28/24 Unknown History <Fariba Last MD - Last Filed: 02/24/25 21:43> Allergies/Adverse Reactions: Allergies Allergy/AdvReac Type Severity Reaction Status Date / Time Penicillins Allergy Severe Hives Verified 02/24/25 18:05 <Fariba Last MD - Last Filed: 02/24/25 21:43> [facility] Past Medical History Medical History: Medical History Kidney stones Diastolic dysfunction Vitamin D deficiency Chronic kidney disease, stage 3 Deep venous thrombosis COPD mixed type Peripheral vascular disease Pancreatitis Right kidney mass Chronic diarrhea Umbilical hernia Anxiety and depression Gastroesophageal reflux disease Hypertension Small bowel obstruction Rheumatoid arthritis Chronic venous stasis dermatitis Closed fracture of greater tuberosity of humerus Fracture of neck of humerus Hypothyroidism (acquired) Depression <Fariba Last MD - Last Filed: 02/24/25 21:43> Surgical History Surgical History: Surgical History History of cataract extraction with lens replacement (2003) History of evacuation of hematoma (2013) lateral thigh History of section X1 History of cholecystectomy <Fariba Last MD - Last Filed: 02/24/25 21:43> Family History Family History: Family History Sibling Patient's sister is in good health Mother Diabetes mellitus, Onset Age: 41 Father Heart attack Cardiovascular disease <Fariba Last MD - Last Filed: 02/24/25 21:43> Social History Social History: Social History Social History: Emergency contact: Karuna Stone, asset protection representative ([phone]). Code status: Do not resuscitate. Smoking packs per day: 2 Smoking cigarettes per day: 40.0 Years smoked: 50 Smoking pack-years: 100.00 Smoking status: Former smoker Second hand tobacco smoke exposure: No Alcohol intake: never Substance use: never Substance use type: does not use Do You Feel Safe in your Home?: Yes Lack of Transportation: No Lack of Food: Never True Current Housing: I Have Housing Concerned About Future Housing: No Difficulty Paying Gas/Electric Bills: No Difficulty Paying for Meds: No Currently Unemployed: No Education: Decline to Answer Difficulty w/ Childcare or Family Care: No Living arrangements: with friend(s) Additional living arrangements comments: Lives with asset protection representative/friend, Karuna. 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 Spiritual care concerns: No <Fariba Last MD - Last Filed: 02/24/25 21:43> Exam Const: General: no acute distress <Fariba Last MD - Last Filed: 02/24/25 21:43> Nutritional Appearance: well nourished <Fariba Last MD - Last Filed: 02/24/25 21:43> HENMT: Head: normal to inspection <Fariba Last MD - Last Filed: 02/24/25 21:43> Eyes: EOM: EOMs intact bilaterally <Fariba Last MD - Last Filed: 02/24/25 21:43> Resp: Effort & Inspection: normal respiratory effort <Fariba Last MD - Last Filed: 02/24/25 21:43> Auscultation: clear to auscultation bilaterally <Fariba Last MD - Last Filed: 02/24/25 21:43> Cardio: Rate: regular rate <Fariba Last MD - Last Filed: 02/24/25 21:43> Rhythm: regular rhythm <Fariba Last MD - Last Filed: 02/24/25 21:43> Heart sounds: no murmurs <Fariba Last MD - Last Filed: 02/24/25 21:43> GI: GI Palp: Yes Soft to palpation, No Tenderness to palpation present (GI) and No Guarding due to palpation present (GI) <Fariba Last MD - Last Filed: 02/24/25 21:43> Auscultation: normal bowel sounds <Fariba Last MD - Last Filed: 02/24/25 21:43> Skin: Other: right lower extremity with large anterior and posterior hematoma with surrounding erythema. <Fariba Last MD - Last Filed: 02/24/25 21:43> Neuro: General: moves all extremities <Fariba Last MD - Last Filed: 02/24/25 21:43> Extrem: General: edema right <Fariba Last MD - Last Filed: 02/24/25 21:43> Other: right lower leg with large hematoma to martinez and calf, there is surrounding erythema, small amount of serouanguinous drainage <Fariba Last MD - Last Filed: 02/24/25 21:43> Psych: Mental Status: mental status grossly normal <Fariba Last MD - Last Filed: 02/24/25 21:43> Affect: normal affect <Fariba Last MD - Last Filed: 02/24/25 21:43> Attitude: cooperative <Fariba Last MD - Last Filed: 02/24/25 21:43> Course Reevaluation(s) Reevaluation #1: Patient presents with right leg pain with large hematoma. I suspect this hematoma is larger due patient on eliquis. She has anemia but does not require transfusion. she also has increase in her wbc. I have given ancef for infected hematoma. She also may have UTI due to discharge that may be from bladder. Pending hospitalist to discuss acceptance. Care turned over to sotero GUSTAFSON <Fariba Last MD - Last Filed: 02/24/25 21:43> Date: 02/24/25 <Fariba Last MD - Last Filed: 02/24/25 21:43> Time: 19:05 <Fariba Last MD - Last Filed: 02/24/25 21:43> Consultations Consultation #1: I spoke with Lia with hospitalist. She is coming to ER to assess patient. I discussed unable to get a hold of Dr. Reynoso who saw patient 2 days ago. Nursing is also reporting bloody purulent drainage vaginally. <Fariba Last MD - Last Filed: 02/24/25 21:43> Date: 02/24/25 <Fariba Last MD - Last Filed: 02/24/25 21:43> Time: 18:30 <Fariba Last MD - Last Filed: 02/24/25 21:43> Consultation #2: Lia down in ER. She is awaiting to hear back from her attending prior to admission. She also wants UA. <Fariba Last MD - Last Filed: 02/24/25 21:43> Date: 02/24/25 <Fariba Last MD - Last Filed: 02/24/25 21:43> Time: 19:00 <Fariba Last MD - Last Filed: 02/24/25 21:43> Time: 19:00 <Fariba Last MD - Last Filed: 02/24/25 21:43> Vital Signs Vital signs: Vital Signs Temperature 36.4 C 02/24/25 12:45 Pulse Rate 56 L 02/24/25 12:45 Respiratory Rate 12 02/24/25 12:45 Blood Pressure 117/58 L 02/24/25 12:45 Pulse Oximetry 99 02/24/25 12:45 Oxygen Delivery Room Air 02/24/25 12:45 Temperature 36.4 C 02/24/25 20:21 Pulse Rate 51 L 02/24/25 20:21 Respiratory Rate 17 02/24/25 20:21 Blood Pressure 134/51 L 02/24/25 20:21 Pulse Oximetry 100 02/24/25 20:21 Oxygen Delivery Room Air 02/24/25 12:45 <Fariba Last MD - Last Filed: 02/24/25 21:43> Vital Signs Temperature 36.4 C 02/24/25 12:45 Pulse Rate 56 L 02/24/25 12:45 Respiratory Rate 12 02/24/25 12:45 Blood Pressure 117/58 L 02/24/25 12:45 Pulse Oximetry 99 02/24/25 12:45 Oxygen Delivery Room Air 02/24/25 12:45 Temperature 36.4 C 02/24/25 20:21 Pulse Rate 51 L 02/24/25 20:21 Respiratory Rate 17 02/24/25 20:21 Blood Pressure 134/51 L 02/24/25 20:21 Pulse Oximetry 100 02/24/25 20:21 Oxygen Delivery Room Air 02/24/25 12:45 <Robles Purcell MD - Last Filed: 02/25/25 00:52> MDM - Wound/Laceration MDM Narrative Medical decision making narrative: Patient was signed out pending results of the CT scan which showed no significant change the case was discussed with the hospitalist patient was found have a UTI <Robles Purcell MD - Last Filed: 02/25/25 00:52> Lab Data Result diagrams: 02/24/25 16:15 02/24/25 16:15 <Fariba Last MD - Last Filed: 02/24/25 21:43> Labs: Lab Results 02/24/25 02/24/25 Range/Units 16:15 19:40 WBC 13.2 H (4.5-10.0) K/mm3 RBC 2.91 L (4.2-5.4) M/mm3 Hgb 9.0 L (12.0-15.0) g/dL Hct 27.8 L (37.0-47.0) % MCV 95.5 (80-100) fl MCH 30.9 (26-34) pg MCHC 32.4 (32-36) g/dl RDW 15.7 H (11.5-14.5) % Plt Count 333 (150-375) k/mm3 MPV 11.1 H (7.4-10.4) fl Immature Gran % (Auto) 0.4 (0-0.5) % Neut % (Auto) 82.0 H (45.5-73.1) % Lymph % (Auto) 13.1 L (18.3-44.2) % Gregg % (Auto) 4.1 (2.6-8.5) % Eos % (Auto) 0.0 (0-4.4) % Baso % (Auto) 0.4 (0.2-1.2) % Lymph # (Auto) 1.72 (0.9-3.2) K/mm3 Gregg # (Auto) 0.5 (0.1-0.6) K/mm3 Eos # (Auto) 0.0 (0-0.3) K/mm3 Baso # (Auto) 0.1 (0.0-0.1) K/mm3 Abs Immat Gran (auto) 0.05 H (0.00-0.031) K/mm3 Absolute Neuts (auto) 10.8 H (1.3-6.7) K/mm3 Absolute Nucleated RBC 0.000 (0.0-0.012) K/mm3 Nucleated RBC % 0.0 (0.0-0.2) % PT 16.7 H (11.1-14.7) Seconds INR 1.3 APTT 26.8 (22.3-36.8) Seconds Sodium 134 L (137-145) mmol/L Potassium 4.6 (3.4-5.0) mmol/L Chloride 104 (98-107) mmol/L Carbon Dioxide 24 (22-30) mmol/L Anion Gap 6 (4-12) mmol/L BUN 29 H (7-17) mg/dL Creatinine 1.16 H (0.7-1.0) mg/dL Estim Creat Clear Calc 24 ml/min Estimated GFR 45 L (59 - ) Glucose 99 (65-110) mg/dL Calcium 7.8 L (8.4-10.2) mg/dL Total Bilirubin 0.3 (0.2-1.3) mg/dL AST 36 (14-36) U/L ALT 30 (6-35) U/L Alkaline Phosphatase 102 (38-126) U/L Total Protein 7.0 (6.3-8.2) g/dL Albumin 2.6 L (3.5-5.1) g/dL Urine Color Dark yellow (Yellow) Urine Appearance Turbid H (Clear) Urine pH 5.0 (5.0-9.0) Ur Specific [place] 1.043 H (1.001-1.035) Urine Protein 2+ H (Negative) mg/dL Urine Glucose (UA) Negative (Negative) mg/dL Urine Ketones Trace H (Negative) mg/dL Ur Blood (Man) 3+ H (Negative) Urine Nitrate Negative (Negative) Urine Bilirubin Negative (Negative) Urine Urobilinogen 0.2 (<2.0) mg/dL Add Ur Microanalysis Reviewed Leukocyte Esterase Rfl 2+ H (Negative) ANNY/UL Urine RBC >100 H (0-2) /hpf Urine WBC >100 H (0-3) /hpf Ur Squamous Epith Cells None seen (Few) /hpf Urine Bacteria 1+ H /hpf Urine Casts 3-5 Urine Mucus Present /lpf <Fariba Last MD - Last Filed: 02/24/25 21:43> Lab Results 02/24/25 02/24/25 Range/Units 16:15 19:40 WBC 13.2 H (4.5-10.0) K/mm3 RBC 2.91 L (4.2-5.4) M/mm3 Hgb 9.0 L (12.0-15.0) g/dL Hct 27.8 L (37.0-47.0) % MCV 95.5 (80-100) fl MCH 30.9 (26-34) pg MCHC 32.4 (32-36) g/dl RDW 15.7 H (11.5-14.5) % Plt Count 333 (150-375) k/mm3 MPV 11.1 H (7.4-10.4) fl Immature Gran % (Auto) 0.4 (0-0.5) % Neut % (Auto) 82.0 H (45.5-73.1) % Lymph % (Auto) 13.1 L (18.3-44.2) % Gregg % (Auto) 4.1 (2.6-8.5) % Eos % (Auto) 0.0 (0-4.4) % Baso % (Auto) 0.4 (0.2-1.2) % Lymph # (Auto) 1.72 (0.9-3.2) K/mm3 Gregg # (Auto) 0.5 (0.1-0.6) K/mm3 Eos # (Auto) 0.0 (0-0.3) K/mm3 Baso # (Auto) 0.1 (0.0-0.1) K/mm3 Abs Immat Gran (auto) 0.05 H (0.00-0.031) K/mm3 Absolute Neuts (auto) 10.8 H (1.3-6.7) K/mm3 Absolute Nucleated RBC 0.000 (0.0-0.012) K/mm3 Nucleated RBC % 0.0 (0.0-0.2) % PT 16.7 H (11.1-14.7) Seconds INR 1.3 APTT 26.8 (22.3-36.8) Seconds Sodium 134 L (137-145) mmol/L Potassium 4.6 (3.4-5.0) mmol/L Chloride 104 (98-107) mmol/L Carbon Dioxide 24 (22-30) mmol/L Anion Gap 6 (4-12) mmol/L BUN 29 H (7-17) mg/dL Creatinine 1.16 H (0.7-1.0) mg/dL Estim Creat Clear Calc 24 ml/min Estimated GFR 45 L (59 - ) Glucose 99 (65-110) mg/dL Calcium 7.8 L (8.4-10.2) mg/dL Total Bilirubin 0.3 (0.2-1.3) mg/dL AST 36 (14-36) U/L ALT 30 (6-35) U/L Alkaline Phosphatase 102 (38-126) U/L Total Protein 7.0 (6.3-8.2) g/dL Albumin 2.6 L (3.5-5.1) g/dL Urine Color Dark yellow (Yellow) Urine Appearance Turbid H (Clear) Urine pH 5.0 (5.0-9.0) Ur Specific [place] 1.043 H (1.001-1.035) Urine Protein 2+ H (Negative) mg/dL Urine Glucose (UA) Negative (Negative) mg/dL Urine Ketones Trace H (Negative) mg/dL Ur Blood (Man) 3+ H (Negative) Urine Nitrate Negative (Negative) Urine Bilirubin Negative (Negative) Urine Urobilinogen 0.2 (<2.0) mg/dL Add Ur Microanalysis Reviewed Leukocyte Esterase Rfl 2+ H (Negative) ANNY/UL Urine RBC >100 H (0-2) /hpf Urine WBC >100 H (0-3) /hpf Ur Squamous Epith Cells None seen (Few) /hpf Urine Bacteria 1+ H /hpf Urine Casts 3-5 Urine Mucus Present /lpf <Robles Purcell MD - Last Filed: 02/25/25 00:52> Discharge Plan Discharge Clinical Impression: Hematoma of right lower leg, Leukocytosis, Acute UTI <Fariba Last MD - Last Filed: 02/24/25 21:43> Patient Disposition: Still a Patient <Fariba Last MD - Last Filed: 02/24/25 21:43> Condition: Stable <Fariba Last MD - Last Filed: 02/24/25 21:43> Patient Language: Senegalese <Fariba Last MD - Last Filed: 02/24/25 21:43> Prescriptions: No Action meclizine 25 mg tablet 25 mg PO Q8H PRN (Reason: Dizziness) Rx Instructions: TAKE 1 TABLET BY MOUTH THREE TIMES DAILY NEEDED FOR DIZZINESS melatonin 10 mg Tablet 10 mg PO HS PRN (Reason: Insomnia) donepezil 5 mg tablet 10 mg PO DAILY calcium carbonate [Oyster Shell Calcium 500] 500 mg calcium (1,250 mg) Tablet 1,000 mg PO 1000,1400,1800 Qty: 30 0RF ergocalciferol (vitamin D2) [Vitamin D2] 1,250 mcg (50,000 unit) Capsule 1,250 mcg PO WEEKLY Qty: 7 0RF guaifenesin [Mucus Relief ER] 600 mg Tablet Extended Release 12hr 600 mg PO Q12HR Qty: 30 0RF losartan 50 mg tablet 50 mg PO QHS atorvastatin 20 mg tablet 20 mg PO QPM loperamide 2 mg Capsule 2 mg PO PRN PRN (Reason: Diarrhea) Qty: 14 0RF cholestyramine (with sugar) 4 gram Powder In Packet 1 ea PO DAILY@1000 Qty: 14 0RF acetaminophen 325 mg Tablet 650 mg PO Q4H PRN (Reason: Mild Pain (1-3) Or Fever) Qty: 10 0RF metronidazole 500 mg Tablet 500 mg PO Q8HR Qty: 7 0RF levothyroxine [Synthroid] 100 mcg Tablet 100 mcg PO DAILY@0630 Qty: 30 0RF cefdinir 300 mg Capsule 300 mg PO Q12HR Qty: 5 0RF Eliquis 5 mg Tablet 10 mg PO Q12HR Qty: 30 0RF Rx Instructions: Eliquis 10mg Q12hr through the morning of January 08 then decrease to 5mg Q12hr starting the evening of January 08 magnesium oxide 400 mg (241.3 mg magnesium) Tablet 400 mg PO DAILY Qty: 30 0RF cephalexin 500 mg capsule 500 mg PO Q6H 7 Days Qty: 28 0RF pantoprazole 40 mg tablet,delayed release (DR/EC) 40 mg PO BID 30 Days Qty: 180 3RF <Fariba Last MD - Last Filed: 02/24/25 21:43> Follow-up/Referrals: Henry Hinojosa MD [Primary Care Provider] - <Fariba Last MD - Last Filed: 02/24/25 21:43> Time of Disposition: 00:52 <Fariba Last MD - Last Filed: 02/24/25 21:43> 00:52 <Robles Purcell MD - Last Filed: 02/25/25 00:52>
--- OUTSIDE RECORDS SUMMARY | 2025-02-24 17:39 | XMS_ITS | Clinical Summary ---
Author Organization [facility] Address [address] [facility] [address] [place] [address] Phone Care Team Providers Care Emergency Response Officer Name Role Phone Henry Hinojosa MD Primary Care Provider [phone] Medications polyethylene glycol (MIRALAX) Powder Use entire [...] age to complete this topic Care Teams Emergency Response Officer Relationship Specialty Start Date End Date Henry Hinojosa MD [address] [facility] [address] [place] [address] (work) PCP - General Internal Medicine 01/26/17
--- OUTSIDE RECORDS SUMMARY | 2025-02-24 17:39 | XMS_ITS | Clinical Summary ---
Author Organization [facility] [address] Address [address] [place] [address] Care Team Providers Care Electrician Wiring Name Role Phone Patel Adrian MD Primary Care Provider [phone] Allergies Active Allergy Reactions Criticality Noted Date Comments Alverto Inhibitors Rash Medium 03/23/2020 Penicillins Anaphylaxis Reaction: ANAPHYLAXIS Medications potassium chloride 10 mEq/100 mL Active fluticasone propionate (FLOVENT DISKUS) 50 mcg/actuation diskus inhaler Inhale 1 puff 2 (two) times a day Rinse mouth with water after use. Do not swallow. Active levothyroxine (SYNTHROID) 150 mcg tablet Take 150 mcg by mouth map compiler before breakfast Active nystatin 100,000 unit/mL suspension [...] Department Care Team Description 01/07/2025 Orders Only [facility] Cardiology [address] [place] [address] Ge Amanda MD from Last [...] on file Legal Sex Female 10:55 AM MICROFILM PROCESSOR Gender Identity Not on file Sexual Orientation [...] CARDIOLOGY DOCUMENT SCAN Routine 12/31/2024 1:11 PM MICROFILM PROCESSOR CARDIOLOGY DOCUMENT SCAN Routine 12/29/2024 1:08 PM MICROFILM PROCESSOR from Last 3 Months Results * Cardiology Document Scan (12/31/2024 1:11 PM MICROFILM PROCESSOR) Anatomical Region Laterality Modality Other us Leann Thornton NP CV CARDIAC SERVICES PROCEDUR ES Final Result * Cardiology Document Scan (12/29/2024 1:08 PM MICROFILM PROCESSOR) Anatomical Region Laterality Modality Other us Ge Amanda MD CV CARDIAC SERVICES PROCEDURES F inal Result from Last [address] [facility] MEDICARE MEDICARE MEDICARE [facility] AETNA MEDICARE GOLD Care Teams Electrician Wiring Relationship Specialty Start Date End Date Patel Adrian MD [address] [place] [address] PCP - General 07/30/20
--- OUTSIDE RECORDS SUMMARY | 2025-02-24 17:39 | XMS_ITS | Clinical Summary ---
Author Organization [facility] [employer] Address [address] [place] [address] Care Team Providers Care Human Intelligence Name Role Phone Henry Hinojosa MD Primary Care Provider [phone] Source Comments [facility] [employer],non-owned Affiliates and Associated Physician Practices is amultiple site organization consisting of ambulatory clinics and hospital sitesin [place], [place], [place] and [place]. This disclosure is being madepursuant to the Care Everywhere program and may not contain all informatio navailable regarding this patient. Last updated 18.[facility] [employer] Allergies Active Allergy Reactions Criticality Noted Date [...] on file Legal Sex Female 9:29 AM SALESPERSON MEATS Gender Identity Not on file Sexual Orientation Not on file Last Filed Vital Signs Vital Sign Reading Time Taken Comments Blood Pressure 125/65 12/05/2015 3:20 PM SALESPERSON MEATS Pulse 72 12/05/2015 3:20 PM SALESPERSON MEATS Temperature 36.9 C (98.4 F) 12/05/2015 3:20 PM SALESPERSON MEATS Respiratory Rate 20 12/05/2015 3:20 PM SALESPERSON MEATS Oxygen Saturation 95% 12/05/2015 3:20 PM SALESPERSON MEATS Inhaled Oxygen Concentration 21% 09/29/2015 9 :38 AM SALESPERSON MEATS Weight 126.6 kg (279 lb) 12/03/2015 7:24 AM SALESPERSON MEATS Height 160 cm (5' 3 ) 12/03/2015 7:24 AM SALESPERSON MEATS Body Mass Index 49.42 12/03/2015 7:24 AM SALESPERSON MEATS Plan of Treatment Health Maintenance Due Date [...] to complete this topic Insurance [place] MEDICARE [facility] Care Address: [address] [address] COMMERCIAL GENERIC AETNA MEDICARE ADV MEDICAID [place] SELF PAY NO INSURANCE Member Subscriber Plan / Payer (Ef fective for All Dates) Name:Stephon Hernandez Member ID:Not on file Relation to Subscriber:Not on file Name:STEPHON HERNANDEZ Subscriber ID:Not on file (Home) Address: [address] [place] [id number] Payer ID:Not on file Group ID:Not on file Type:Self Pay Address: [place], [place] AETNA MEDICAID - OUT OF STATE Advance Directives * Full Code (Latest Code Status on File) Date Activated Date Inactivated Comments 12/03/2015 1:10 PM 12/05/2015 8:14 PM Care Teams Human Intelligence Relationship Specialty Start Date End Date Henry Hinojosa MD [address] [place] [address] PCP - General 09/21/22
--- OUTSIDE RECORDS SUMMARY | 2025-02-24 17:39 | XMS_ITS | Referral Summary ---
Author Organization [facility] [address] Address [address] [place] [address] Care Team Providers Care Sr. Strategic Sourcing Manager Name Role Phone Patel Adrian MD Primary Care Provider [phone] Encounters Date Type Department Care Team Description 01/07/2025 Orders Only [facility] Cardiology [address] [place] [address] eG Amanda MD from Last 3 Months Allergies [...] mcg tablet Take 150 mcg by mouth explosive operator bomb before breakfast Active nystatin 100,000 unit/mL suspension [...] on file Legal Sex Female 10:55 AM CIVIL ENGINEERING DESIGN DRAFTSPERSON Gender Identity Not on file Sexual Orientation [...] CARDIOLOGY DOCUMENT SCAN Routine 12/31/2024 1:11 PM CIVIL ENGINEERING DESIGN DRAFTSPERSON CARDIOLOGY DOCUMENT SCAN Routine 12/29/2024 1:08 PM CIVIL ENGINEERING DESIGN DRAFTSPERSON from Last 3 Months Results * Cardiology Document Scan (12/31/2024 1:11 PM CIVIL ENGINEERING DESIGN DRAFTSPERSON) Anatomical Region Laterality Modality Other Leann Thornton NP CV CARDIAC SERVICES PROCEDUR ES Final Result * Cardiology Document Scan (12/29/2024 1:08 PM CIVIL ENGINEERING DESIGN DRAFTSPERSON) Anatomical Region Laterality Modality Other Ge Amanda MD CV CARDIAC SERVICES PROCEDURES F inal Result from Last 3 Months Insurance [facility] AETNA MEDICARE MEDICARE MEDICARE [facility] AETNA MEDICARE GOLD Care Teams Sr. Strategic Sourcing Manager Relationship Specialty Start Date End Date Patel Adrian MD [address] [place] [address] PCP - General 07/30/20
--- OUTSIDE RECORDS SUMMARY | 2025-02-24 17:39 | XMS_ITS | Encounter Summary ---
Author Organization [facility] Address [address] [place] [address] Care Team Providers Care Rug Dyer Helper Name Role Phone Robert Zuniga MD Primary Care Provider [phone] Karthik Benjamin MD Primary Care Provider [phone] Henry Hinojosa MD Primary Care Provider [phone] Encounter Details Date Type Department Care Team (Late st Contact Info) Description 09/28/2015 [facility] Outpatient Visit [facility] [address] [place] [address] [place] [id number] [address] Social History Tobacco Use Types Packs/Day Years Used Date Smoking Tobacco: Every Day Smokeless Tobacco: Never Alcohol Use Standard Drinks/Week Comments No 0 (1 standard drink = 0.6 oz pur e alcohol) Comments No Sex and Gender Information Value Date Recorded Sex Assigned at Not on file Legal Sex Female 9:29 AM HAND REAMER Gender Identity Not on file Sexual Orientation Not on file documented as of this encounter Plan of Treatment Not on file documented as of this encounter Visit Diagnoses Not on filedocumented in this encounter Care Teams Rug Dyer Helper Relationship Specialty Start Date End Date Robert Zuniga MD [address] [place], [place] [id number] PCP - General Family Medicine 09/18/15 11/13/19 Karthik Benjamin MD [address] [place] [address] PCP - General 11/14/19 09/20/22 Henry Hinojosa MD [address] [address] PCP - General 09/21/22 documented as of this encounter
--- NOTE | 2025-02-24 18:14 | PC.NURSE ---
Will start antibiotic after blood cultures obtained
[2025-02-24] MEDS: ceFAZolin 1 GM/NS 50 ML 1 GM/50 ML BAG IVPB (18:38)
--- NOTE | 2025-02-24 19:10 | PC.NURSE ---
Received report from REBECA Hooker for continuos of care. Pt AOX3 lying on stretcher, respirations even and unlabored. MD at bedside accessing R leg wound. Pt receiving Ancef IV, and on cont. satellite project site monitor.
[2025-02-24 20:16] LABS: Add Urine Microscopic? YES; Appearance Urine Turbid (Clear); Bacteria Urine 1+ /hpf; Bilirubin Urine Negative (Negative); Blood Urine 3+ (Negative); Color Urine Dark Yellow (Yellow); Glucose Urine UA Negative (Negative); Ketones Urine Trace mg/dL (Negative); Leukocyte Esterase Ur 2+ LEU/UL (Negative); Mucus Urine Present /lpf; Need Manual Microscopic Reviewed; Nitrate Urine Negative (Negative); Protein Urine 2+ mg/dL (Negative); RBC Urine >100 /hpf (0-2); Specific Grav Ur 1.043 (1.001-1.035); Squamous Epithelial Cell Urine None Seen /hpf (Few); Urobilinogen Urine 0.2 mg/dL (<2.0); WBC Urine >100 /hpf (0-3)
--- NOTE | 2025-02-24 21:02 | PC.NURSE ---
Pt taken to CT in stretcher.
[2025-02-25] VITALS (8 sets, daily range): BP systolic 119–152; BP diastolic 52–67; PULSE 47–59; RESP 14–20; TEMP 36.1–36.6; O2SAT 94–98; BMI 23.3
[2025-02-25] MEDS: HYDROcodone/acetaminophen (*CRX) 5-325 MG TABLET 1 TAB (01:10)
--- NOTE | 2025-02-25 02:05 | PC.NURSE ---
Pt repositioned in bed, and provided with pudding.
--- NOTE | 2025-02-25 05:46 | ADMGEN ---
This patient, Arielle Pittman, was admitted to 3 [facility] Surg Room 316-01. Patient/family oriented to hospital policies and general routines including ID bracelet, bed and alarms, visiting hours, pain management, procedures, bathroom and other care routines, personal items, smoking policy, room service/diet, and visiting hours. Information on how to activate the Rapid Response Team has been discussed. Patient/Family are encouraged to report perceived risks to care and to ask questions if they do not understand what they are told or what they should do.
[2025-02-25 05:50] LABS: Hemoglobin 8.6 g/dL (12.0-15.0); Mean Corpuscular HGB Conc 31.9 g/dl (32-36); Mean Corpuscular Hemoglobin 30.1 pg (26-34); Mean Corpuscular Volume 94.4 fl (80-100); Mean Platelet Volume 11.4 fl (7.4-10.4); Platelet Count Result 358 k/mm3 (150-375); Red Blood Count 2.86 M/mm3 (4.2-5.4); Red Cell Distribution Width 15.5 % (11.5-14.5); White Blood Count 9.8 K/mm3 (4.5-10.0)
[2025-02-25 06:00] LABS: Anion Gap 9 mmol/L (4-12); Blood Urea Nitrogen 27 mg/dL (7-17); Calcium 7.8 mg/dL (8.4-10.2); Carbon Dioxide 24 mmol/L (22-30); Chloride 103 mmol/L (98-107); Estimated CRCL calculation 27 ml/min; Estimated Glomerular Filt Rate 50; Glucose 65 mg/dL (65-110); Potassium 4.2 mmol/L (3.4-5.0); Sodium 136 mmol/L (137-145)
--- NOTE | 2025-02-25 08:27 | P.PNIM_ITS ---
Progress Note: A&P Assessment and Plan (1) Hematoma of right lower leg: Code(s): S80.11XA - Contusion of right lower leg, initial encounter Status: Acute Assessment and Plan: Denies trauma Wound care consulted recommending surgery consult of time due to size hematoma Surgery consulted pending recommendations Holding Enrike (2) Anemia: Code(s): D64.9 - Anemia, unspecified Status: Acute Assessment and Plan: Acute blood loss anemia and chronic anemia Trend hemoglobin Transfuse for hemoglobin less than 7 or symptomatic No need for transfusion at this time No signs of acute bleeding currently Anemia workup pending (3) UTI (urinary tract infection): Qualifiers: Hematuria presence: with hematuria Urinary tract infection type: acute cystitis Qualified Code(s): N30.01 - Acute cystitis with hematuria Code(s): N39.0 - Urinary tract infection, site not specified Status: Acute Assessment and Plan: IV Rocephin Culture and sensitivity pending (4) HTN (hypertension): Qualifiers: Hypertension type: essential hypertension Qualified Code(s): I10 - Essential (primary) hypertension Code(s): I10 - Essential (primary) hypertension Status: Acute Assessment and Plan: Continue losartan (5) Hypothyroidism (acquired): Code(s): E03.9 - Hypothyroidism, unspecified Status: Chronic Assessment and Plan: Continue Synthroid Time Spent With Patient Time with patient: Greater than 35 minutes Subjective Date/time seen: 02/25/25 08:27 Interval history: 84 year old female on eliquis who presents for evaluation bilateral leg pain and right leg swelling. Patient was evaluated in ER 2 days ago for right leg hematoma. Patient denies trauma to the leg. Patient seen by wound care this morning recommending surgical consult, pending recommendation Review of Systems Review of Systems: 12 systems were reviewed and are negativ e except for as per HPI. Exam Narrative: General: well appearing, appears stated age. HEENT: normocephalic, atraumatic. Mucous membranes moist. EOMI, PERRLA, bilateral sclera anicteric, no conjunctival injection. Neck supple without JVD, lymphadenopathy, or bruit. Respiratory: clear to ascultation bilaterally. No rales/rhonic/wheezes. Cardiovascular: Regular rate and rhythm, normal S1-S2 upon ascultation. No murmurs, rubs, or clicks. PMI is nondisplaced, capillary refill less than 3 second. Abdomen: Soft, round, no pulsatile masses, nondistended and nontender. No rebound, no guarding. No CVA tenderness, no hepatosplenomegaly. Bowel sounds present to all four quadrants. No high pitch or tinkling sounds, resonant to percussion. Extremities: No cyanosis, clubbing, or edema present. Pulses are palpable 2/2. Right lower extremity Large hematoma and edema Neuro: Alert and orientated x 4. PERRLA. Cranial nerves 2-12 intact without focal deficit. Skin: Warm, dry, and intact, without rash, erythema, or lesion. Psych: pleasant, cooperative, normal speech, normal affect, no hallucinations, no dysarthia Objective Data Vital Signs Vital Signs: Vital Signs - 24 hr 02/24/25 12:45 02/24/25 13:03 02/24/25 15:31 Temperature 97.6 F Pulse Rate 56 L 56 L 54 L Respiratory Rate 12 20 16 Blood Pressure 117/58 L 112/63 137/69 Pulse Oximetry 99 97 100 Oxygen Delivery Room Air 02/24/25 17:31 02/24/25 18:45 02/24/25 18:46 Temperature Pulse Rate 51 L 48 L 55 L Respiratory Rate 20 16 20 Blood Pressure 127/60 126/43 L Pulse Oximetry 100 Oxygen Delivery 02/24/25 19:01 02/24/25 19:16 02/24/25 19:30 Temperature Pulse Rate 50 L 53 L 51 L Respiratory Rate 16 17 10 L Blood Pressure 132/56 L 128/54 L Pulse Oximetry 100 98 100 Oxygen Delivery 02/24/25 19:31 02/24/25 19:45 02/24/25 19:46 Temperature Pulse Rate 51 L 48 L Respiratory Rate 14 20 16 Blood Pressure 138/55 L 130/57 L Pulse Oximetry 100 99 100 Oxygen Delivery 02/24/25 20:07 02/24/25 20:16 02/24/25 20:21 Temperature 97.6 F Pulse Rate 59 L 51 L 51 L Respiratory Rate 11 L 16 17 Blood Pressure 134/58 L 134/51 L 134/51 L Pulse Oximetry 100 Oxygen Delivery 02/24/25 20:31 02/24/25 20:46 02/24/25 21:18 Temperature Pulse Rate 53 L 51 L Respiratory Rate 17 16 6 L Blood Pressure 131/57 L 134/54 L 147/54 H Pulse Oximetry Oxygen Delivery 02/24/25 21:31 02/24/25 21:46 02/24/25 22:00 Temperature Pulse Rate 53 L 49 L 48 L Respiratory Rate 14 15 14 Blood Pressure 140/53 L 140/55 L Pulse Oximetry Oxygen Delivery 02/24/25 22:01 02/24/25 22:46 02/24/25 23:00 Temperature Pulse Rate 53 L 47 L 47 L Respiratory Rate 14 16 16 Blood Pressure 140/57 L 128/52 L Pulse Oximetry Oxygen Delivery 02/24/25 23:16 02/24/25 23:46 02/25/25 00:01 Temperature Pulse Rate 48 L 45 L 49 L Respiratory Rate 16 14 16 Blood Pressure 132/55 L 129/50 L 119/52 L Pulse Oximetry Oxygen Delivery 02/25/25 00:16 02/25/25 02:01 02/25/25 03:30 Temperature Pulse Rate 51 L 47 L Respiratory Rate 14 18 Blood Pressure 134/64 152/64 H Pulse Oximetry Oxygen Delivery Room Air 02/25/25 05:55 Temperature 96.9 F L Pulse Rate 49 L Respiratory Rate 16 Blood Pressure 144/67 H Pulse Oximetry 98 Oxygen Delivery Intake/Output Intake/Output: Intake & Output 02/22/25 02/23/25 02/24/25 02/25/25 23:59 23:59 23:59 23:59 Intake Total 50 50 Balance 50 50 Meds/Results Medications: Active Medications Generic Name Dose Route Start Last Admin Trade Name Freq PRN Reason Stop Dose Admin Acetaminophen 500 mg 02/25/25 01:23 Acetaminophen 500 Mg Tablet PO Q6H PRN Mild Pain (1-3) or Fever Hydrocodone Bitart/Acetaminophen 1 tab 02/25/25 01:24 Hydrocodone/Acetaminophen (*Crx) 5-325 Mg Tablet PO Q4H PRN Pain Rated 4-6 Ceftriaxone Sodium 1 gm in 50 mls @ 100 mls/hr 02/25/25 22:00 Rocephin 1 Gm/Ns 50 Ml IVPB Q24H SALMA Morphine Sulfate 2 mg 02/25/25 01:25 Morphine Sulfate (*Crx) 2 Mg/Ml Inj IV PUSH Q4H PRN Pain Rated 7-10 Radiology Results: ITS Impressions Tibia/Fibula X-Ray 02/24/25 16:39 IMPRESSION: No acute osseous abnormality right leg. Soft tissue swelling which is increased compared to previous examination. Lower Extremity CT 02/24/25 21:29 IMPRESSION: Large right lower leg subcutaneous hematoma, grossly unchanged in size, without definite evidence of active extravasation. Labs Labs: Laboratory Results - last 24 hr 02/24/25 02/24/25 02/25/25 16:15 19:40 05:14 WBC 13.2 H 9.8 RBC 2.91 L 2.86 L Hgb 9.0 L 8.6 L Hct 27.8 L 27.0 L MCV 95.5 94.4 MCH 30.9 30.1 MCHC 32.4 31.9 L RDW 15.7 H 15.5 H Plt Count 333 358 MPV 11.1 H 11.4 H Immature Gran % (Auto) 0.4 Neut % (Auto) 82.0 H Lymph % (Auto) 13.1 L Sumter % (Auto) 4.1 Eos % (Auto) 0.0 Baso % (Auto) 0.4 Lymph # (Auto) 1.72 Sumter # (Auto) 0.5 Eos # (Auto) 0.0 Baso # (Auto) 0.1 Abs Immat Gran (auto) 0.05 H Absolute Neuts (auto) 10.8 H Absolute Nucleated RBC 0.000 Nucleated RBC % 0.0 PT 16.7 H INR 1.3 APTT 26.8 Sodium 134 L 136 L Potassium 4.6 4.2 Chloride 104 103 Carbon Dioxide 24 24 Anion Gap 6 9 BUN 29 H 27 H Creatinine 1.16 H 1.04 H Estim Creat Clear Calc 24 27 Estimated GFR 45 L 50 L Glucose 99 65 Calcium 7.8 L 7.8 L Total Bilirubin 0.3 AST 36 ALT 30 Alkaline Phosphatase 102 Total Protein 7.0 Albumin 2.6 L Urine Color Dark yellow Urine Appearance Turbid H Urine pH 5.0 Ur Specific Carson 1.043 H Urine Protein 2+ H Urine Glucose (UA) Negative Urine Ketones Trace H Ur Blood (Man) 3+ H Urine Nitrate Negative Urine Bilirubin Negative Urine Urobilinogen 0.2 Add Ur Microanalysis Reviewed Leukocyte Esterase Rfl 2+ H Urine RBC >100 H Urine WBC >100 H Ur Squamous Epith Cells None seen Urine Bacteria 1+ H Urine Casts 3-5 Urine Mucus Present Quality VTE Prophylaxis VTE prophylaxis: mechanical ordered Hospitalist MIPS Advance Care Plan I have confirmed that the patient's Advanced Care Plan is present, code status is documented, or surrogate decision maker is listed in patient medical record.: Yes Medication Reconciliation I have utilized all available resources to obtain, update and review the patients current medications (includes all prescriptions, OTC, herbals, cannabis, and nutritional supplements).: Yes
[2025-02-25] MEDS: PANTOPRAZOLE 40 MG TABLET PO ×2 (08:51→20:18)
[2025-02-25] MEDS: busPIRone HCL 10 MG TABLET PO ×3 (08:52→16:57)
[2025-02-25] MEDS: LEVOTHYROXINE SODIUM 100 MCG TABLET PO (08:52)
[2025-02-25] MEDS: ESCITALOPRAM OXALATE 5 MG TABLET PO (08:52)
[2025-02-25] MEDS: ACETAMINOPHEN 500 MG TABLET PO ×2 (08:52→16:56)
[2025-02-25] MEDS: IPRATROPIUM 0.5 MG/ALBUTEROL SULFATE 2.5 MG AMPUL.NEB 3 ML INHALATION (09:24)
--- OUTSIDE RECORDS SUMMARY | 2025-02-25 11:41 | XMS_ITS | Referral Summary ---
Author Organization [facility] [place] [address] Address [address] [place] [address] Care Team Providers Care Tabber Name Role Phone Patel Adrian MD Primary Care Provider [phone] Encounters Date Type Department Care Team Description 01/07/2025 Orders Only [facility] Medical [facility] Cardiology [address] [place] [address] Ge Amanda MD from Last [...] on file Legal Sex Female 10:55 AM CROP PEST CONTROL SPECIALIST Gender Identity Not on file Sexual [...] CARDIOLOGY DOCUMENT SCAN Routine 12/31/2024 1:11 PM CROP PEST CONTROL SPECIALIST CARDIOLOGY DOCUMENT SCAN Routine 12/29/2024 1:08 PM CROP PEST CONTROL SPECIALIST from Last 3 Months Results * Cardiology Document Scan (12/31/2024 1:11 PM CROP PEST CONTROL SPECIALIST) Anatomical Region Laterality Modality Other Leann Thornton NP CV CARDIAC SERVICES PROCEDUR ES Final Result * Cardiology Document Scan (12/29/2024 1:08 PM CROP PEST CONTROL SPECIALIST) Anatomical Region Laterality Modality Other Ge Amanda MD CV CARDIAC SERVICES PROCEDURES F inal Result from Last 3 Months Insurance [facility] AETNA MEDICARE MEDICARE MEDICARE [facility] AETNA MEDICARE GOLD Care Teams Tabber Relationship Specialty Start Date End Date Patel Adrian MD [address] [place] [address] PCP - General 07/30/20
--- OUTSIDE RECORDS SUMMARY | 2025-02-25 11:41 | XMS_ITS | Clinical Summary ---
Author Organization [facility] Address [address] [place] [address] Care Team Providers Care Brazing Furnace Feeder Name Role Phone Henry Hinojosa MD Primary Care Provider [phone] Source Comments [facility],non-owned Affiliates and Associated Physician Practices is amultiple site organization consisting of ambulatory clinics and hospital sitesin [place], [place], [place] and [place]. This disclosure is being madepursuant to the Care Everywhere program and may not contain all informatio navailable regarding this patient. Last updated 18.[facility] Allergies Active Allergy Reactions Criticality Noted Date [...] on file Legal Sex Female 9:29 AM BUSINESS DEVELOPMENT SALES EXECUTIVE Gender Identity Not on file Sexual Orientation Not on file Last Filed Vital Signs Vital Sign Reading Time Taken Comments Blood Pressure 125/65 12/05/2015 3:20 PM BUSINESS DEVELOPMENT SALES EXECUTIVE Pulse 72 12/05/2015 3:20 PM BUSINESS DEVELOPMENT SALES EXECUTIVE Temperature 36.9 C (98.4 F) 12/05/2015 3:20 PM BUSINESS DEVELOPMENT SALES EXECUTIVE Respiratory Rate 20 12/05/2015 3:20 PM BUSINESS DEVELOPMENT SALES EXECUTIVE Oxygen Saturation 95% 12/05/2015 3:20 PM BUSINESS DEVELOPMENT SALES EXECUTIVE Inhaled Oxygen Concentration 21% 09/29/2015 9 :38 AM BUSINESS DEVELOPMENT SALES EXECUTIVE Weight 126.6 kg (279 lb) 12/03/2015 7:24 AM BUSINESS DEVELOPMENT SALES EXECUTIVE Height 160 cm (5' 3 ) 12/03/2015 7:24 AM BUSINESS DEVELOPMENT SALES EXECUTIVE Body Mass Index 49.42 12/03/2015 7:24 AM BUSINESS DEVELOPMENT SALES EXECUTIVE Plan of Treatment Health Maintenance Due Date [...] to complete this topic Insurance COVENTRY MEDICARE [facility] Care Address: [address] [address] COMMERCIAL GENERIC AETNA MEDICARE ADV MEDICAID [place] SELF PAY NO INSURANCE Member Subscriber Plan / Payer (Ef fective for All Dates) Name:Stephon Hernandez Member ID:Not on file Relation to Subscriber:Not on file Name:STEPHON HERNANDEZ Subscriber ID:Not on file (Home) Address: [address] [place] [address] Payer ID:Not on file Group ID:Not on file Type:Self Pay Address: [place], [place] AETNA MEDICAID - OUT OF STATE Advance Directives * Full Code (Latest Code Status on File) Date Activated Date Inactivated Comments 12/03/2015 1:10 PM 12/05/2015 8:14 PM Care Teams Brazing Furnace Feeder Relationship Specialty Start Date End Date Henry Hinojosa MD [address] [place] [id number] PCP - General 09/21/22
--- OUTSIDE RECORDS SUMMARY | 2025-02-25 11:41 | XMS_ITS | Encounter Summary ---
Author Organization [facility] Health Address [address] [place] [address] Care Team Providers Care Marine Radio Installer And Servicer Name Role Phone Robert Zuniga MD Primary Care Provider [phone] Karthik Benjamin MD Primary Care Provider [phone] Henry Hinojosa MD Primary Care Provider [phone] Encounter Details Date Type Department Care Team (Late st Contact Info) Description 09/28/2015 [facility] Outpatient Visit [facility] [address] [place] [address] [place] [address] [address] Social History Tobacco Use Types Packs/Day Years Used Date Smoking Tobacco: Every Day Smokeless Tobacco: Never Alcohol Use Standard Drinks/Week Comments No 0 (1 standard drink = 0.6 oz pur e alcohol) Comments No Sex and Gender Information Value Date Recorded Sex Assigned at Not on file Legal Sex Female 9:29 AM SUPERVISOR ANODIZING Gender Identity Not on file Sexual Orientation Not on file documented as of this encounter Plan of Treatment Not on file documented as of this encounter Visit Diagnoses Not on filedocumented in this encounter Care Teams Marine Radio Installer And Servicer Relationship Specialty Start Date End Date Robert Zuniga MD [address] [place], [place] [id number] PCP - General Family Medicine 09/18/15 11/13/19 Karthik Benjamin MD [address] [place] [address] PCP - General 11/14/19 09/20/22 Henry Hinojosa MD [address] [address] PCP - General 09/21/22 documented as of this encounter
--- OUTSIDE RECORDS SUMMARY | 2025-02-25 11:41 | XMS_ITS | Clinical Summary ---
Author Organization [facility] [address] Address [address] [place] [address] Care Team Providers Care Compass Operator Name Role Phone Patel Adrian MD Primary Care Provider [phone] Allergies Active Allergy Reactions Criticality Noted Date Comments Alverto Inhibitors Rash Medium 03/23/2020 Penicillins Anaphylaxis Reaction: ANAPHYLAXIS Medications potassium chloride 10 mEq/100 mL Active fluticasone propionate (FLOVENT DISKUS) 50 mcg/actuation diskus inhaler Inhale 1 puff 2 (two) times a day Rinse mouth with water after use. Do not swallow. Active levothyroxine (SYNTHROID) 150 mcg tablet Take 150 mcg by mouth dish stacker before breakfast Active nystatin 100,000 unit/mL suspension [...] Department Care Team Description 01/07/2025 Orders Only [facility] Medical Group Cardiology [address] [place] [address] Ge Amanda MD from Last [...] on file Legal Sex Female 10:55 AM HYDROMETEOROLOGY TEACHER Gender Identity Not on file Sexual Orientation [...] CARDIOLOGY DOCUMENT SCAN Routine 12/31/2024 1:11 PM HYDROMETEOROLOGY TEACHER CARDIOLOGY DOCUMENT SCAN Routine 12/29/2024 1:08 PM HYDROMETEOROLOGY TEACHER from Last 3 Months Results * Cardiology Document Scan (12/31/2024 1:11 PM HYDROMETEOROLOGY TEACHER) Anatomical Region Laterality Modality Other us Leann Thornton NP CV CARDIAC SERVICES PROCEDUR ES Final Result * Cardiology Document Scan (12/29/2024 1:08 PM HYDROMETEOROLOGY TEACHER) Anatomical Region Laterality Modality Other us Ge Amanda MD CV CARDIAC SERVICES PROCEDURES F inal Result from Last [address] [facility] MEDICARE MEDICARE MEDICARE [employer] AETNA MEDICARE GOLD Care Teams Compass Operator Relationship Specialty Start Date End Date Patel Adrian MD [address] [place] [address] PCP - General 07/30/20
--- OUTSIDE RECORDS SUMMARY | 2025-02-25 11:41 | XMS_ITS | Clinical Summary ---
Author Organization [facility] Address [address] [facility] [address] [place] [address] Phone Care Team Providers Care Building Carpenter Name Role Phone Henry Hinojosa MD Primary Care Provider [phone] Medications polyethylene glycol (MIRALAX) Powder Use entire [...] age to complete this topic Care Teams Building Carpenter Relationship Specialty Start Date End Date Henry Hinojosa MD [address] [facility] [address] [place] [address] (work) PCP - General Internal Medicine 01/26/17
--- NOTE | 2025-02-25 15:29 | P.CONGS_ITS ---
Assessment and Plan Assessment and plan (1) Hematoma of right lower leg: Code(s): S80.11XA - Contusion of right lower leg, initial encounter Status: Acute Assessment and Plan: I have reviewed the CT and discussed the findings with the patient. She has a large circumferential hematoma to her right lower leg. This does not appear to be involving full thickness skin, but there is a possibility of skin necrosis. There are also some surrounding skin changes that could reflect early cellulitis. I have recommended debridement and evacuation of right leg hematoma under anesthesia in the OR. This will allow adequate wound care and prevent infection. Will plan to proceed with surgery morning. (2) Diastolic CHF, acute on chronic: Code(s): I50.33 - Acute on chronic diastolic (congestive) heart failure Status: Acute (3) Chronic obstructive pulmonary disease with hypoxia: Code(s): J44.9 - Chronic obstructive pulmonary disease, unspecified; R09.02 - Hypoxemia Status: Acute (4) Chronic kidney disease, stage 3: Code(s): N18.30 - Chronic kidney disease, stage 3 unspecified Status: Chronic History of Present Illness Consult details Consult date: 02/25/25 Reason for consult: other (leg hematoma) Requesting physician: Madelyn Orr, SUGAR Narrative: This is an 84 yo woman who presented with a right leg hematoma. She is unsure how she got this. Does not recall and injury to the area. She was on blood thinners and bruises very easily. Hx is somewhat difficult to obtain from patient. She was in the ED on 02/22 with c/o the hematoma. Orthopedics saw patient in the ED and she was able to be discharged back to SNF. She is now experiencing more swelling and has some weeping at the hematoma. She has some pain in the area and mild surrounding redness. Review of Systems 2 Review of Systems: All systems reviewed & are unremarkable except as noted in HPI and below Constitutional: Constitutional: Denies chills and Denies fever(s) Cardiovascular: Cardiovascular: Denies chest pain and Denies dyspnea Respiratory: Respiratory: Denies dyspnea Gastrointestinal: Gastrointestinal: Denies abdominal pain and Denies nausea Integumentary/Breasts: Skin/Breast: Reports as per HPI Hematologic/Lymphatic: Hematologic/Lymphatic: Reports as per HPI [facility] Past Medical History Medical History Kidney stones Diastolic dysfunction Vitamin D deficiency Chronic kidney disease, stage 3 Deep venous thrombosis COPD mixed type Peripheral vascular disease Pancreatitis Right kidney mass Chronic diarrhea Umbilical hernia Anxiety and depression Gastroesophageal reflux disease Hypertension Small bowel obstruction Rheumatoid arthritis Chronic venous stasis dermatitis Closed fracture of greater tuberosity of humerus Fracture of neck of humerus Hypothyroidism (acquired) Depression Surgical History Surgical History History of cataract extraction with lens replacement (2003) History of evacuation of hematoma (2013) lateral thigh History of section X1 History of cholecystectomy Family History Family History Sibling Patient's sister is in good health Mother Diabetes mellitus, Onset Age: 41 Father Heart attack Cardiovascular disease Social History Social History Social History: Emergency contact: Karuna Stone, tunnel elastic operator chainstitch ([phone]). Code status: Do not resuscitate. Smoking packs per day: 2 Smoking cigarettes per day: 40.0 Years smoked: 50 Smoking pack-years: 100.00 Smoking status: Former smoker Second hand tobacco smoke exposure: No Alcohol intake: never Substance use: never Substance use type: does not use Do You Feel Safe in your Home?: Yes Lack of Transportation: No Lack of Food: Never True Current Housing: I Have Housing Concerned About Future Housing: No Difficulty Paying Gas/Electric Bills: No Difficulty Paying for Meds: No Currently Unemployed: No Education: Decline to Answer Difficulty w/ Childcare or Family Care: No Living arrangements: with friend(s) Additional living arrangements comments: Lives with tunnel elastic operator chainstitch/friend, Karuna. 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 Spiritual care concerns: No Meds Home Medications and Allergies Home Medications ?Medication ?Instructions ?Recorded ?Confirmed ?Type pantoprazole 40 mg tablet,delayed 40 mg PO BID 30 days #180 tabs 04/12/23 02/25/25 Rx release meclizine 25 mg tablet 25 mg PO Q8H PRN Dizziness 08/31/23 02/25/25 History melatonin 10 mg tablet 10 mg PO HS PRN Insomnia 08/31/23 02/25/25 History donepezil 5 mg tablet 10 mg PO DAILY 03/01/24 02/25/25 History atorvastatin 20 mg tablet 20 mg PO QPM 11/07/24 02/25/25 History losartan 50 mg tablet 50 mg PO QHS 11/07/24 02/25/25 History cholestyramine (with sugar) 4 gram 1 ea PO DAILY@1000 #14 ea 11/19/24 02/25/25 Rx powder for susp in a packet calcium carbonate (Oyster Shell 1,000 mg (2 x 500 mg calcium 12/15/24 02/25/25 Rx Calcium 500) (1,250 mg)) PO 1000,1400,1800 #30 tabs guaifenesin 600 mg tablet, 600 mg PO Q12HR #30 tabs 12/15/24 02/25/25 Rx extended release 12 hr (Mucus Relief ER) acetaminophen 325 mg tablet 650 mg (2 x 325 mg) PO Q4H PRN 01/02/25 02/25/25 Rx Mild Pain (1-3) Or Fever #10 tabs cefdinir 300 mg capsule 300 mg PO Q12HR #5 caps 01/02/25 02/25/25 Rx levothyroxine 100 mcg tablet 100 mcg PO DAILY@0630 #30 tabs 01/02/25 02/25/25 Rx (Synthroid) magnesium oxide 400 mg (241.3 mg 400 mg PO DAILY #30 tabs 01/02/25 02/25/25 Rx magnesium) tablet metronidazole 500 mg tablet 500 mg PO Q8HR #7 tabs 01/02/25 02/25/25 Rx cephalexin 500 mg capsule 500 mg PO Q6H 7 days #28 caps 02/22/25 02/25/25 Rx apixaban 5 mg tablet (Eliquis) 10 mg PO Q12HR 02/25/25 02/25/25 History bisacodyl 10 mg rectal suppository 10 mg RECTAL DAILY PRN constipation 02/25/25 02/25/25 History buspirone 10 mg tablet 10 mg PO TID 02/25/25 02/25/25 History donepezil 10 mg tablet 10 mg PO HS 02/25/25 02/25/25 History ergocalciferol (vitamin D2) 1,250 1,250 mcg PO WEEKLY 02/25/25 02/25/25 History mcg (50,000 unit) capsule (Vitamin D2) escitalopram oxalate 10 mg tablet 5 mg PO DAILY 02/25/25 02/25/25 History ipratropium 0.5 mg-albuterol 3 mg 3 ml inhalation TID 02/25/25 02/25/25 History (2.5 mg base)/3 mL nebulization soln levothyroxine 150 mcg tablet 100 mcg PO DAILY@0630 02/25/25 02/25/25 History loperamide 2 mg capsule 2 mg PO Q6H PRN Diarrhea 02/25/25 02/25/25 History losartan 25 mg tablet 50 mg PO DAILY 02/25/25 02/25/25 History magnesium hydroxide 400 mg/5 mL 400 mg PO HS PRN constipation 02/25/25 02/25/25 History oral suspension silver sulfadiazine 1 % topical 1 applic topical PRN 02/25/25 02/25/25 History cream (Silvadene) Allergies Allergy/AdvReac Type Severity Reaction Status Date / Time Penicillins Allergy Severe Hives Verified 02/25/25 05:55 av nodle blockers Allergy Severe Anaphylaxis Uncoded 02/25/25 05:55 Vital Signs Vital Signs - 24 hr 02/24/25 15:31 02/24/25 17:31 02/24/25 18:45 Temperature Pulse Rate 54 L 51 L 48 L Respiratory Rate 16 20 16 Blood Pressure 137/69 127/60 Pulse Oximetry 100 100 Oxygen Delivery 02/24/25 18:46 02/24/25 19:01 02/24/25 19:16 Temperature Pulse Rate 55 L 50 L 53 L Respiratory Rate 20 16 17 Blood Pressure 126/43 L 132/56 L 128/54 L Pulse Oximetry 100 98 Oxygen Delivery 02/24/25 19:30 02/24/25 19:31 02/24/25 19:45 Temperature Pulse Rate 51 L 51 L Respiratory Rate 10 L 14 20 Blood Pressure 138/55 L Pulse Oximetry 100 100 99 Oxygen Delivery 02/24/25 19:46 02/24/25 20:07 02/24/25 20:16 Temperature Pulse Rate 48 L 59 L 51 L Respiratory Rate 16 11 L 16 Blood Pressure 130/57 L 134/58 L 134/51 L Pulse Oximetry 100 Oxygen Delivery 02/24/25 20:21 02/24/25 20:31 02/24/25 20:46 Temperature 97.6 F Pulse Rate 51 L 53 L 51 L Respiratory Rate 17 17 16 Blood Pressure 134/51 L 131/57 L 134/54 L Pulse Oximetry 100 Oxygen Delivery 02/24/25 21:18 02/24/25 21:31 02/24/25 21:46 Temperature Pulse Rate 53 L 49 L Respiratory Rate 6 L 14 15 Blood Pressure 147/54 H 140/53 L 140/55 L Pulse Oximetry Oxygen Delivery 02/24/25 22:00 02/24/25 22:01 02/24/25 22:46 Temperature Pulse Rate 48 L 53 L 47 L Respiratory Rate 14 14 16 Blood Pressure 140/57 L 128/52 L Pulse Oximetry Oxygen Delivery 02/24/25 23:00 02/24/25 23:16 02/24/25 23:46 Temperature Pulse Rate 47 L 48 L 45 L Respiratory Rate 16 16 14 Blood Pressure 132/55 L 129/50 L Pulse Oximetry Oxygen Delivery 02/25/25 00:01 02/25/25 00:16 02/25/25 02:01 Temperature Pulse Rate 49 L 51 L 47 L Respiratory Rate 16 14 18 Blood Pressure 119/52 L 134/64 152/64 H Pulse Oximetry Oxygen Delivery 02/25/25 03:30 02/25/25 05:55 02/25/25 08:50 Temperature 96.9 F L Pulse Rate 49 L Respiratory Rate 16 Blood Pressure 144/67 H Pulse Oximetry 98 Oxygen Delivery Room Air Room Air 02/25/25 09:25 02/25/25 09:25 02/25/25 09:41 Temperature Pulse Rate 59 L 55 L Respiratory Rate 16 16 Blood Pressure Pulse Oximetry 94 Oxygen Delivery Room Air Exam 2 Const: General: cooperative, no acute distress and average body habitus N utritional Appearance: average body habitus Orientation/consciousness: p atient oriented x3 HENMT: Head: normal to inspection Ears: hearing grossly normal bilaterally Mouth: Yes Normal oral and palatal mucosa present Eyes: General: appearance normal, both eyes and all related structures S clera: sclerae normal EOM: EOMs intact bilaterally Neck: Neck: normal visual inspection and full ROM Resp: Effort & Inspection: normal respiratory effort and able to speak in complete sentences Cardio: Jugular venous distension: no JVD Rate: regular rate Rhythm: r egular rhythm Heart sounds: S1 normal heart sound present and S2 normal heart sound present Back/Spine/Pelvis: Cervical Spine: normal cervical lordosis and cervical ROM normal Skin: General skin exam: normal color and no rashes or lesions noted Other: Large right lower leg hematoma involving the skin. It does not appear to go full thickness through the skin, but there is a possibility of full thickness skin necrosis. Hematoma is predominantly on the posterior calf region but also extends circumferentially to the anterior lower leg. Surrounding erythema and edema. Distal pulses intact. Neuro: General: patient oriented x3, moves all extremities, no focal motor deficits and CN's II-XI intact bilaterally Speech: normal speech Extrem: General: normal to inspection, full ROM and no clubbing, cyanosis or edema Psych: Appearance: grossly normal Mental Status: mental status grossly normal Speech and movement: Normal speech and movement present Affect: n ormal affect Attitude: cooperative Thought process: Normal thought process present Results Labs 02/25/25 05:14 02/25/25 05:14 Labs: Abnormal lab results 02/24/25 02/24/25 02/25/25 Range/Units 16:15 19:40 05:14 WBC 13.2 H (4.5-10.0) K/mm3 RBC 2.91 L 2.86 L (4.2-5.4) M/mm3 Hgb 9.0 L 8.6 L (12.0-15.0) g/dL Hct 27.8 L 27.0 L (37.0-47.0) % MCHC 31.9 L (32-36) g/dl RDW 15.7 H 15.5 H (11.5-14.5) % MPV 11.1 H 11.4 H (7.4-10.4) fl Neut % (Auto) 82.0 H (45.5-73.1) % Lymph % (Auto) 13.1 L (18.3-44.2) % Abs Immat Gran (auto) 0.05 H (0.00-0.031) K/mm3 Absolute Neuts (auto) 10.8 H (1.3-6.7) K/mm3 PT 16.7 H (11.1-14.7) Seconds Sodium 134 L 136 L (137-145) mmol/L BUN 29 H 27 H (7-17) mg/dL Creatinine 1.16 H 1.04 H (0.7-1.0) mg/dL Estimated GFR 45 L 50 L (59 - ) Calcium 7.8 L 7.8 L (8.4-10.2) mg/dL Albumin 2.6 L (3.5-5.1) g/dL Urine Appearance Turbid H (Clear) Ur Specific [place] 1.043 H (1.001-1.035) Urine Protein 2+ H (Negative) mg/dL Urine Ketones Trace H (Negative) mg/dL Ur Blood (Man) 3+ H (Negative) Leukocyte Esterase Rfl 2+ H (Negative) ANNY/UL Urine RBC >100 H (0-2) /hpf Urine WBC >100 H (0-3) /hpf Urine Bacteria 1+ H /hpf Diabetes panel 02/24/25 02/25/25 Range/Units 16:15 05:14 Sodium 134 L 136 L (137-145) mmol/L Potassium 4.6 4.2 (3.4-5.0) mmol/L Chloride 104 103 (98-107) mmol/L Carbon Dioxide 24 24 (22-30) mmol/L BUN 29 H 27 H (7-17) mg/dL Creatinine 1.16 H 1.04 H (0.7-1.0) mg/dL Glucose 99 65 (65-110) mg/dL Calcium 7.8 L 7.8 L (8.4-10.2) mg/dL AST 36 (14-36) U/L ALT 30 (6-35) U/L Alkaline Phosphatase 102 (38-126) U/L Total Protein 7.0 (6.3-8.2) g/dL Albumin 2.6 L (3.5-5.1) g/dL Calcium panel 02/24/25 02/25/25 Range/Units 16:15 05:14 Calcium 7.8 L 7.8 L (8.4-10.2) mg/dL Albumin 2.6 L (3.5-5.1) g/dL Pituitary panel 02/24/25 02/25/25 Range/Units 16:15 05:14 Sodium 134 L 136 L (137-145) mmol/L Potassium 4.6 4.2 (3.4-5.0) mmol/L Chloride 104 103 (98-107) mmol/L Carbon Dioxide 24 24 (22-30) mmol/L BUN 29 H 27 H (7-17) mg/dL Creatinine 1.16 H 1.04 H (0.7-1.0) mg/dL Glucose 99 65 (65-110) mg/dL Calcium 7.8 L 7.8 L (8.4-10.2) mg/dL Adrenal panel 02/24/25 02/25/25 Range/Units 16:15 05:14 Sodium 134 L 136 L (137-145) mmol/L Potassium 4.6 4.2 (3.4-5.0) mmol/L Chloride 104 103 (98-107) mmol/L Carbon Dioxide 24 24 (22-30) mmol/L BUN 29 H 27 H (7-17) mg/dL Creatinine 1.16 H 1.04 H (0.7-1.0) mg/dL Glucose 99 65 (65-110) mg/dL Calcium 7.8 L 7.8 L (8.4-10.2) mg/dL Total Bilirubin 0.3 (0.2-1.3) mg/dL AST 36 (14-36) U/L ALT 30 (6-35) U/L Alkaline Phosphatase 102 (38-126) U/L Total Protein 7.0 (6.3-8.2) g/dL Albumin 2.6 L (3.5-5.1) g/dL All other labs normal. Imaging Additional studies: ITS Impressions Tibia/Fibula X-Ray 02/24/25 16:39 IMPRESSION: No acute osseous abnormality right leg. Soft tissue swelling which is increased compared to previous examination. Lower Extremity CT 02/24/25 21:29 IMPRESSION: Large right lower leg subcutaneous hematoma, grossly unchanged in size, without definite evidence of active extravasation.
[2025-02-25 15:52] LABS: Toxigenic C. Diff NEGATIVE (NEGATIVE)
[2025-02-25] MEDS: LOPERAMIDE HCL 2 MG CAPSULE 4 MG PO (16:56)
[2025-02-25] MEDS: ATORVASTATIN 20 MG TABLET PO (16:57)
[2025-02-25] MEDS: MELATONIN 5 MG TABLET 10 MG PO (20:17)
[2025-02-25] MEDS: LOPERAMIDE HCL 2 MG CAPSULE PO (20:18)
[2025-02-25] MEDS: DONEPEZIL HCL 10 MG TABLET PO (20:18)
[2025-02-25] MEDS: LOSARTAN POTASSIUM 50 MG TABLET PO (20:18)
[2025-02-26] MEDS: LEVOTHYROXINE SODIUM 100 MCG TABLET PO (05:32)
[2025-02-26 06:00] VITALS: BP 130/52; PULSE 53; RESP 16; TEMP 36.5; O2SAT 97
[2025-02-26 07:03] LABS: Iron 32 ug/dL (37-170)
[2025-02-26 07:12] LABS: Percent Iron Saturation 18 % (20-50)
--- NOTE | 2025-02-26 07:58 | P.PNIM_ITS ---
Progress Note: A&P Assessment and Plan (1) Hematoma of right lower leg: Code(s): S80.11XA - Contusion of right lower leg, initial encounter Status: Acute Assessment and Plan: * Denies trauma * Wound care consulted recommending surgery consult of time due to size hematoma * Surgery consulted, plan for OR to debridement of wound * Holding Eliquis (2) Anemia: Code(s): D64.9 - Anemia, unspecified Status: Acute Assessment and Plan: Acute blood loss anemia and chronic anemia Trend hemoglobin Transfuse for hemoglobin less than 7 or symptomatic No need for transfusion at this time No signs of acute bleeding currently Anemia workup pending (3) Bacteremia: Code(s): R78.81 - Bacteremia Status: Acute Assessment and Plan: - suspected source: UTI, cellulitis, hematoma - blood cultures drawn on 02/24, gram + bacilli - Increase Rocephin to 2gm - Monitor WBC, vitals - Monitor final BC results (4) UTI (urinary tract infection): Qualifiers: Hematuria presence: with hematuria Urinary tract infection type: acute cystitis Qualified Code(s): N30.01 - Acute cystitis with hematuria Code(s): N39.0 - Urinary tract infection, site not specified Status: Acute Assessment and Plan: IV Rocephin, increased to 2gm Culture and sensitivity pending (5) HTN (hypertension): Qualifiers: Hypertension type: essential hypertension Qualified Code(s): I10 - Essential (primary) hypertension Code(s): I10 - Essential (primary) hypertension Status: Acute Assessment and Plan: Continue losartan (6) Hypothyroidism (acquired): Code(s): E03.9 - Hypothyroidism, unspecified Status: Chronic Assessment and Plan: Continue Synthroid Time Spent With Patient Time: Subjective Date/time seen: 02/26/25 07:58 Interval history: 84 year old female on eliquis who presents for evaluation bilateral leg pain and right leg swelling. Patient was evaluated in ER 2 days ago for right leg hematoma. Patient denies trauma to the leg. 02/26/2025 Patient sitting comfortably in bed at time of examination. Denies any CP, SOB, n/v, or abdominal pain at this time. Still endorsing right lower extremity pain. Gen Surgery following and recommend debridement of tissue, will plan for this tomorrow. Blood cultures prelim positive for gram + bacilli, will increase Ceftriaxone to 2gm. Review of Systems Review of Systems: 12 systems were reviewed and are negativ e except for as per HPI. Exam Narrative: General: well appearing, appears stated age. HEENT: normocephalic, atraumatic. Mucous membranes moist. EOMI, PERRLA, bilateral sclera anicteric, no conjunctival injection. Neck supple without JVD, lymphadenopathy, or bruit. Respiratory: clear to ascultation bilaterally. No rales/rhonic/wheezes. Cardiovascular: Regular rate and rhythm, normal S1-S2 upon ascultation. No murmurs, rubs, or clicks. PMI is nondisplaced, capillary refill less than 3 second. Abdomen: Soft, round, no pulsatile masses, nondistended and nontender. No rebound, no guarding. No CVA tenderness, no hepatosplenomegaly. Bowel sounds present to all four quadrants. No high pitch or tinkling sounds, resonant to percussion. Extremities: No cyanosis, clubbing, or edema present. Pulses are palpable 2/2. Right lower extremity Large hematoma and edema Neuro: Alert and orientated x 4. PERRLA. Cranial nerves 2-12 intact without focal deficit. Skin: Warm, dry, and intact, without rash, erythema, or lesion. Psych: pleasant, cooperative, normal speech, normal affect, no hallucinations, no dysarthia Objective Data Vital Signs Vital Signs: Vital Signs - 24 hr 02/25/25 08:50 02/25/25 09:25 02/25/25 09:25 Temperature Pulse Rate 59 L Respiratory Rate 16 Blood Pressure Pulse Oximetry 94 Oxygen Delivery Room Air Room Air 02/25/25 09:41 02/25/25 14:00 02/25/25 20:17 Temperature 97.8 F Pulse Rate 55 L 58 L Respiratory Rate 16 16 Blood Pressure 128/67 Pulse Oximetry 98 Oxygen Delivery Room Air 02/25/25 21:35 02/26/25 06:00 Temperature 97.9 F 97.7 F Pulse Rate 58 L 53 L Respiratory Rate 20 16 Blood Pressure 140/63 130/52 L Pulse Oximetry 98 97 Oxygen Delivery Intake/Output Intake/Output: Intake & Output 02/23/25 02/24/25 02/25/25 02/26/25 23:59 23:59 23:59 23:59 Intake Total 50 1577 340 Balance 50 1577 340 Meds/Results Medications: Active Medications Generic Name Dose Route Start Last Admin Trade Name Freq PRN Reason Stop Dose Admin Acetaminophen 500 mg 02/25/25 01:23 02/25/25 16:56 Acetaminophen 500 Mg Tablet PO 500 mg Q6H PRN Administration Mild Pain (1-3) or Fever Hydrocodone Bitart/Acetaminophen 1 tab 02/25/25 01:24 Hydrocodone/Acetaminophen (*Crx) 5-325 Mg Tablet PO Q4H PRN Pain Rated 4-6 Albuterol/Ipratropium 3 ml 02/25/25 09:49 Ipratropium 0.5 Mg/Albuterol Sulfate 2.5 Mg Ampul.Neb 3 Ml INHALATION TIDRT PRN Wheezing Atorvastatin Calcium 20 mg 02/25/25 18:00 02/25/25 16:57 Atorvastatin 20 Mg Tablet PO 20 mg QPM SALMA Administration Bisacodyl 10 mg 02/25/25 08:41 Bisacodyl 10 Mg Suppository RECTAL DAILY PRN constipation Buspirone HCl 10 mg 02/25/25 09:00 02/25/25 16:57 Buspirone Hcl 10 Mg Tablet PO 10 mg TID SALMA Administration Donepezil HCl 10 mg 02/25/25 21:00 02/25/25 20:18 Donepezil Hcl 10 Mg Tablet PO 10 mg HS SALMA Administration Escitalopram Oxalate 5 mg 02/25/25 09:00 02/25/25 08:52 Escitalopram Oxalate 5 Mg Tablet PO 5 mg DAILY SALMA Administration Ceftriaxone Sodium 1 gm in 50 mls @ 100 mls/hr 02/25/25 22:00 02/25/25 22:07 Rocephin 1 Gm/Ns 50 Ml IVPB Infused Q24H SALMA Infusion Levothyroxine Sodium 100 mcg 02/25/25 08:50 02/26/25 05:32 Levothyroxine Sodium 100 Mcg Tablet PO 100 mcg DAILY@0630 SALMA Administration Loperamide HCl 2 mg 02/25/25 15:58 02/25/25 20:18 Loperamide Hcl 2 Mg Capsule PO 2 mg PRN PRN Administration Diarrhea Losartan Potassium 50 mg 02/25/25 21:00 02/25/25 20:18 Losartan Potassium 50 Mg Tablet PO 50 mg QHS SALMA Administration Melatonin 10 mg 02/25/25 08:41 02/25/25 20:17 Melatonin 5 Mg Tablet PO 10 mg HS PRN Administration Insomnia Morphine Sulfate 2 mg 02/25/25 01:25 Morphine Sulfate (*Crx) 2 Mg/Ml Inj IV PUSH Q4H PRN Pain Rated 7-10 Pantoprazole Sodium 40 mg 02/25/25 09:00 02/25/25 20:18 Pantoprazole 40 Mg Tablet PO 40 mg Q12HR SALMA Administration Radiology Results: ITS Impressions Tibia/Fibula X-Ray 02/24/25 16:39 IMPRESSION: No acute osseous abnormality right leg. Soft tissue swelling which is increased compared to previous examination. Lower Extremity CT 02/24/25 21:29 IMPRESSION: Large right lower leg subcutaneous hematoma, grossly unchanged in size, without definite evidence of active extravasation. Labs Labs: Laboratory Results - last 24 hr 02/25/25 02/26/25 14:47 06:23 Iron 32 L TIBC 178 L Vitamin B12 961.0 H Folate 4.0 TSH (Reflex) 6.190 H C. difficile (PCR) Negative Quality VTE Prophylaxis VTE prophylaxis: mechanical ordered
[2025-02-26 08:09] LABS: Basophils Absolute Auto 0.1 K/mm3 (0.0-0.1); Basophils Percent Auto 0.4 % (0.2-1.2); Eosinophils Percent Auto 0.4 % (0-4.4); Hematocrit 26.2 % (37.0-47.0); Immature Granulocyte Absolute 0.04 K/mm3 (0.00-0.031); Immature Granulocyte Percent A 0.4 % (0-0.5); Lymphocytes Absolute Auto 2.47 K/mm3 (0.9-3.2); Lymphocytes Percent Auto 21.7 % (18.3-44.2); Mean Corpuscular HGB Conc 30.5 g/dl (32-36); Mean Corpuscular Hemoglobin 30.1 pg (26-34); Mean Corpuscular Volume 98.5 fl (80-100); Mean Platelet Volume 11.5 fl (7.4-10.4); Monocytes Absolute Auto 0.4 K/mm3 (0.1-0.6); Monocytes Percent Auto 3.6 % (2.6-8.5); Neutrophils Absolute Auto 8.4 K/mm3 (1.3-6.7); Neutrophils Percent Auto 73.5 % (45.5-73.1); Platelet Count Result 356 k/mm3 (150-375); Red Blood Count 2.66 M/mm3 (4.2-5.4); Red Cell Distribution Width 15.9 % (11.5-14.5); White Blood Count 11.4 K/mm3 (4.5-10.0)
[2025-02-26] MEDS: busPIRone HCL 10 MG TABLET PO ×3 (08:51→16:50)
[2025-02-26] MEDS: ESCITALOPRAM OXALATE 5 MG TABLET PO (08:51)
[2025-02-26] MEDS: HYDROcodone/acetaminophen (*CRX) 5-325 MG TABLET 1 TAB PO ×2 (08:51→21:19)
[2025-02-26] MEDS: PANTOPRAZOLE 40 MG TABLET PO ×2 (08:52→21:20)
[2025-02-26] MEDS: LOPERAMIDE HCL 2 MG CAPSULE PO (09:03)
[2025-02-26 14:00] VITALS: BP 126/58; PULSE 74; RESP 16; TEMP 36.3; O2SAT 100
[2025-02-26] MEDS: cefTRIAXone 2 GM/NS 100 ML 2 GM/100 ML BAG IVPB (14:06)
[2025-02-26 14:27] LABS: Alanine Aminotransferase 26 U/L (6-35); Albumin Level 2.5 g/dL (3.5-5.1); Alkaline Phosphatase 90 U/L (38-126); Anion Gap 12 mmol/L (4-12); Aspartate Amino Transferase 33 U/L (14-36); Bilirubin,Total 0.1 mg/dL (0.2-1.3); Blood Urea Nitrogen 23 mg/dL (7-17); Calcium 8.2 mg/dL (8.4-10.2); Carbon Dioxide 17 mmol/L (22-30); Chloride 111 mmol/L (98-107); Estimated CRCL calculation 26 ml/min; Estimated Glomerular Filt Rate 49; Glucose 80 mg/dL (65-110); Potassium 4.5 mmol/L (3.4-5.0); Sodium 140 mmol/L (137-145)
[2025-02-26 14:46] LABS: Free T4 Free Thyroxine Reflex 1.55 ng/dL (0.78-2.19)
--- NOTE | 2025-02-26 15:22 | P.PNGS_ITS ---
Progress Note: A&P Assessment and Plan (1) Hematoma of right lower leg: Code(s): S80.11XA - Contusion of right lower leg, initial encounter Status: Acute Assessment and Plan: * Will plan to proceed with debridement and evacuation of right leg hematoma by Dr. Hernandez in the OR tomorrow. She has been made NPO after midnight. * Continue local wound care. Subjective Subjective Date/Time Seen: 02/26/25 15:22 Patient reports: no new complaints Interval history: No acute changes Exam Narrative: Right lower leg dressing dry and intact Objective Data Vital Signs Vital Signs: Vital Signs - 24 hr 02/25/25 20:17 02/25/25 21:35 02/26/25 06:00 Temperature 97.9 F 97.7 F Pulse Rate 58 L 53 L Respiratory Rate 20 16 Blood Pressure 140/63 130/52 L Pulse Oximetry 98 97 Oxygen Delivery Room Air 02/26/25 08:50 Temperature Pulse Rate Respiratory Rate Blood Pressure Pulse Oximetry Oxygen Delivery Room Air Intake/Output Intake/Output: Intake & Output 02/23/25 02/24/25 02/25/25 02/26/25 23:59 23:59 23:59 23:59 Intake Total 50 1577 912 Balance 50 1577 912 Meds/Results Medications: Active Medications Generic Name Dose Route Start Last Admin Trade Name Freq PRN Reason Stop Dose Admin Acetaminophen 500 mg 02/25/25 01:23 02/25/25 16:56 Acetaminophen 500 Mg Tablet PO 500 mg Q6H PRN Administration Mild Pain (1-3) or Fever Hydrocodone Bitart/Acetaminophen 1 tab 02/25/25 01:24 02/26/25 08:51 Hydrocodone/Acetaminophen (*Crx) 5-325 Mg Tablet PO 1 tab Q4H PRN Administration Pain Rated 4-6 Albuterol/Ipratropium 3 ml 02/25/25 09:49 Ipratropium 0.5 Mg/Albuterol Sulfate 2.5 Mg Ampul.Neb 3 Ml INHALATION TIDRT PRN Wheezing Atorvastatin Calcium 20 mg 02/25/25 18:00 02/25/25 16:57 Atorvastatin 20 Mg Tablet PO 20 mg QPM SALMA Administration Bisacodyl 10 mg 02/25/25 08:41 Bisacodyl 10 Mg Suppository RECTAL DAILY PRN constipation Buspirone HCl 10 mg 02/25/25 09:00 02/26/25 14:06 Buspirone Hcl 10 Mg Tablet PO 10 mg TID SALMA Administration Donepezil HCl 10 mg 02/25/25 21:00 02/25/25 20:18 Donepezil Hcl 10 Mg Tablet PO 10 mg HS SALMA Administration Escitalopram Oxalate 5 mg 02/25/25 09:00 02/26/25 08:51 Escitalopram Oxalate 5 Mg Tablet PO 5 mg DAILY SALMA Administration Ceftriaxone Sodium 2 gm in 100 mls @ 200 mls/hr 02/26/25 12:00 02/26/25 14:36 Rocephin 2 Gm/Ns 100 Ml IVPB Infused DAILY SALMA Infusion Levothyroxine Sodium 100 mcg 02/25/25 08:50 02/26/25 05:32 Levothyroxine Sodium 100 Mcg Tablet PO 100 mcg DAILY@0630 SALMA Administration Loperamide HCl 2 mg 02/25/25 15:58 02/26/25 09:03 Loperamide Hcl 2 Mg Capsule PO 2 mg PRN PRN Administration Diarrhea Losartan Potassium 50 mg 02/25/25 21:00 02/25/25 20:18 Losartan Potassium 50 Mg Tablet PO 50 mg QHS SALMA Administration Melatonin 10 mg 02/25/25 08:41 02/25/25 20:17 Melatonin 5 Mg Tablet PO 10 mg HS PRN Administration Insomnia Morphine Sulfate 2 mg 02/25/25 01:25 Morphine Sulfate (*Crx) 2 Mg/Ml Inj IV PUSH Q4H PRN Pain Rated 7-10 Pantoprazole Sodium 40 mg 02/25/25 09:00 02/26/25 08:52 Pantoprazole 40 Mg Tablet PO 40 mg Q12HR SALMA Administration Radiology Results: ITS Impressions Tibia/Fibula X-Ray 02/24/25 16:39 IMPRESSION: No acute osseous abnormality right leg. Soft tissue swelling which is increased compared to previous examination. Lower Extremity CT 02/24/25 21:29 IMPRESSION: Large right lower leg subcutaneous hematoma, grossly unchanged in size, without definite evidence of active extravasation. Labs Labs: Laboratory Results - last 24 hr 02/25/25 02/26/25 14:47 06:23 WBC 11.4 H RBC 2.66 L Hgb 8.0 L Hct 26.2 L MCV 98.5 MCH 30.1 MCHC 30.5 L RDW 15.9 H Plt Count 356 MPV 11.5 H Immature Gran % (Auto) 0.4 Neut % (Auto) 73.5 H Lymph % (Auto) 21.7 [place] % (Auto) 3.6 Eos % (Auto) 0.4 Baso % (Auto) 0.4 Lymph # (Auto) 2.47 [place] # (Auto) 0.4 Eos # (Auto) 0.0 Baso # (Auto) 0.1 Abs Immat Gran (auto) 0.04 H Absolute Neuts (auto) 8.4 H Absolute Nucleated RBC 0.000 Nucleated RBC % 0.0 Sodium 140 Potassium 4.5 Chloride 111 H Carbon Dioxide 17 L Anion Gap 12 BUN 23 H Creatinine 1.07 H Estim Creat Clear Calc 26 Estimated GFR 49 L Glucose 80 Calcium 8.2 L Iron 32 L TIBC 178 L % Saturation 18 L Total Bilirubin 0.1 L AST 33 ALT 26 Alkaline Phosphatase 90 Total Protein 7.0 Albumin 2.5 L Vitamin B12 961.0 H Folate 4.0 TSH (Reflex) 6.190 H Free T4 1.55 C. difficile (PCR) Negative
[2025-02-26] MEDS: ATORVASTATIN 20 MG TABLET PO (16:50)
[2025-02-26 20:55] VITALS: BP 146/59; PULSE 51; RESP 18; TEMP 36.4; O2SAT 99
[2025-02-26] MEDS: DONEPEZIL HCL 10 MG TABLET PO (21:19)
[2025-02-26] MEDS: MELATONIN 5 MG TABLET 10 MG PO (21:20)
[2025-02-26] MEDS: LOSARTAN POTASSIUM 50 MG TABLET PO (21:20)
[2025-02-27] VITALS (16 sets, daily range): BP systolic 115–159; BP diastolic 50–71; PULSE 48–68; RESP 12–16; TEMP 36–36.4; O2SAT 96–100
[2025-02-27] MEDS: ACETAMINOPHEN 500 MG TABLET PO (00:47)
--- NOTE | 2025-02-27 01:11 | ECG_ITS ---
Test Date: 2025-02-27 01:25:41 Measurements Intervals [place] Rate: 73 P: 0 CO: 0 QRS: -16 QRSD: 149 T: 38 QT: 443 QTc: 489 Interpretive Statements ATRIAL FIBRILLATION RIGHT BUNDLE BRANCH BLOCK BASELINE ARTIFACT- I, II, III, AVR, AVL, V6 ABNORMAL ECG Compared to ECG 12/28/2024 22:56:31 Sinus bradycardia no longer present Electronically Signed On 02-27-2025 08:00:35 CDT by Alphonso Nicole D.O.
[2025-02-27] MEDS: ONDANSETRON INJ 4 MG/2 ML VIAL IV PUSH (01:51)
--- NOTE | 2025-02-27 03:51 | P.PNCROSS_ITS ---
Event Note Event Note Event Note: Patient had nausea, noting give Zofran an EKG was checked. Demonstrates AFib c ontrolled rate. Placed on telemetry. Restart Eliquis when appropriate. Potassium 4.5. Magnesium level last checked in December 2024 low at 1.5. We will check that now.
[2025-02-27 04:05] LABS: Basophils Percent Auto 0.3 % (0.2-1.2); Hematocrit 24.7 % (37.0-47.0); Hemoglobin 7.7 g/dL (12.0-15.0); Immature Granulocyte Absolute 0.07 K/mm3 (0.00-0.031); Immature Granulocyte Percent A 0.5 % (0-0.5); Lymphocytes Absolute Auto 1.18 K/mm3 (0.9-3.2); Lymphocytes Percent Auto 8.4 % (18.3-44.2); Mean Corpuscular HGB Conc 31.2 g/dl (32-36); Mean Corpuscular Volume 96.1 fl (80-100); Mean Platelet Volume 10.8 fl (7.4-10.4); Monocytes Absolute Auto 0.3 K/mm3 (0.1-0.6); Monocytes Percent Auto 1.9 % (2.6-8.5); Neutrophils Absolute Auto 12.4 K/mm3 (1.3-6.7); Neutrophils Percent Auto 88.9 % (45.5-73.1); Platelet Count Result 362 k/mm3 (150-375); Red Blood Count 2.57 M/mm3 (4.2-5.4); Red Cell Distribution Width 15.9 % (11.5-14.5)
[2025-02-27 04:15] LABS: Alanine Aminotransferase 25 U/L (6-35); Albumin Level 2.5 g/dL (3.5-5.1); Alkaline Phosphatase 99 U/L (38-126); Anion Gap 5 mmol/L (4-12); Aspartate Amino Transferase 35 U/L (14-36); Bilirubin,Total 0.2 mg/dL (0.2-1.3); Blood Urea Nitrogen 19 mg/dL (7-17); Carbon Dioxide 24 mmol/L (22-30); Chloride 109 mmol/L (98-107); Estimated CRCL calculation 25 ml/min; Estimated Glomerular Filt Rate 47; Glucose 112 mg/dL (65-110); Magnesium 1.6 mg/dL (1.6-2.3); Potassium 4.3 mmol/L (3.4-5.0); Sodium 138 mmol/L (137-145)
--- NOTE | 2025-02-27 07:00 | ECG_ITS ---
Test Date: 2025-02-27 15:34:48 Measurements Intervals [place] Rate: 51 P: 81 GA: 170 QRS: -9 QRSD: 149 T: 31 QT: 506 QTc: 468 Interpretive Statements SINUS BRADYCARDIA RIGHT BUNDLE BRANCH BLOCK BASELINE ARTIFACT- II, III, AVR, AVL, AVF, V1-V6 ABNORMAL ECG Compared to ECG 02/27/2025 01:25:41 Atrial fibrillation no longer present Electronically Signed On 02-27-2025 15:36:15 CDT by Alphonso Nicole D.O.
--- NOTE | 2025-02-27 07:22 | P.PNIM_ITS ---
Progress Note: A&P Assessment and Plan (1) Hematoma of right lower leg: Code(s): S80.11XA - Contusion of right lower leg, initial encounter Status: Acute Assessment and Plan: * Denies trauma * Wound care consulted recommending surgery consult of time due to size hematoma * Surgery consulted, plan for OR to debridement of wound AM * Holding Eliquis * Excisional debridement of necrotic skin from hematoma of RLL and evacuation of RLE subQ hematoma today * RLE hematoma appeared to involve the subcutaneous space of the anterior and posterior lower leg.The anterior portion measured about 12 cm x 10 cm and the posterior portion measured about 7 cm x 17 cm. (2) Cellulitis of right lower extremity: Code(s): L03.115 - Cellulitis of right lower limb Status: Acute Assessment and Plan: * See above * Monitor vital signs, I&Os, neuro status and patient is a fall risk * Monitor serum electrolytes, CBC, cultures, WBC and temp curve * Gen surg following, debridement today * Rocephin 2gm * Gentle IV fluids resuscitation (3) Anemia: Code(s): D64.9 - Anemia, unspecified Status: Acute Assessment and Plan: * Acute blood loss anemia and chronic anemia * Trend hemoglobin * Transfuse for hemoglobin less than 7 or symptomatic * No need for transfusion at this time * No signs of acute bleeding currently * Fe 32, TIBC 178, 18% Saturation (4) Bacteremia: Code(s): R78.81 - Bacteremia Status: Acute Assessment and Plan: - suspected source: UTI, cellulitis, hematoma - blood cultures drawn on 02/24, Clostridium R. - Increase Rocephin to 2gm, add Flagyl - Monitor WBC, vitals - Monitor final BC results (5) UTI (urinary tract infection): Qualifiers: Hematuria presence: with hematuria Urinary tract infection type: acute cystitis Qualified Code(s): N30.01 - Acute cystitis with hematuria Code(s): N39.0 - Urinary tract infection, site not specified Status: Acute Assessment and Plan: IV Rocephin, increased to 2gm Culture negative for growth (6) HTN (hypertension): Qualifiers: Hypertension type: essential hypertension Qualified Code(s): I10 - Essential (primary) hypertension Code(s): I10 - Essential (primary) hypertension Status: Acute Assessment and Plan: Continue losartan (7) Hypothyroidism (acquired): Code(s): E03.9 - Hypothyroidism, unspecified Status: Chronic Assessment and Plan: Continue Synthroid Time Spent With Patient Time: Subjective Date/time seen: 02/27/25 07:22 Interval history: 84 year old female on Eliquis who presents for evaluation bilateral leg pain and right leg swelling. Patient was evaluated in ER 2 days ago for right leg hematoma. Patient denies trauma to the leg. 02/27/2025 The patient is sitting comfortably at bedside at time of examination. Denies any chest pain, shortness a breath, nausea/vomiting, or abdominal pain. Still continues to have right lower extremity pain, plan for sharp excisional debridement of necrotic skin from hematoma and evacuation of right lower extremity subcutaneous hematoma today. Cultures + for Clostridium R. Continuing Rocephin and will add Flagyl. Review of Systems Review of Systems: 12 systems were reviewed and are negativ e except for as per HPI. Exam Narrative: General: well appearing, appears stated age. HEENT: normocephalic, atraumatic. Mucous membranes moist. EOMI, PERRLA, bilateral sclera anicteric, no conjunctival injection. Neck supple without JVD, lymphadenopathy, or bruit. Respiratory: clear to ascultation bilaterally. No rales/rhonic/wheezes. Cardiovascular: Regular rate and rhythm, normal S1-S2 upon ascultation. No murmurs, rubs, or clicks. PMI is nondisplaced, capillary refill less than 3 second. Abdomen: Soft, round, no pulsatile masses, nondistended and nontender. No rebound, no guarding. No CVA tenderness, no hepatosplenomegaly. Bowel sounds present to all four quadrants. No high pitch or tinkling sounds, resonant to percussion. Extremities: No cyanosis, clubbing, or edema present. Pulses are palpable 2/2. Right lower extremity Large hematoma and edema Neuro: Alert and orientated x 4. PERRLA. Cranial nerves 2-12 intact without focal deficit. Skin: Warm, dry, and intact, without rash, erythema, or lesion. Psych: pleasant, cooperative, normal speech, normal affect, no hallucinations, no dysarthia Objective Data Vital Signs Vital Signs: Vital Signs - 24 hr 02/26/25 08:50 02/26/25 14:00 02/26/25 20:00 Temperature 97.3 F L Pulse Rate 74 Respiratory Rate 16 Blood Pressure 126/58 L Pulse Oximetry 100 Oxygen Delivery Room Air Room Air 02/26/25 20:55 02/27/25 06:00 Temperature 97.6 F 97.5 F L Pulse Rate 51 L 52 L Respiratory Rate 18 14 Blood Pressure 146/59 H 115/50 L Pulse Oximetry 99 99 Oxygen Delivery Intake/Output Intake/Output: Intake & Output 02/24/25 02/25/25 02/26/25 02/27/25 23:59 23:59 23:59 23:59 Intake Total 50 1577 1030 200 Output Total 50 250 Balance 50 1577 980 -50 Meds/Results Medications: Active Medications Generic Name Dose Route Start Last Admin Trade Name Freq PRN Reason Stop Dose Admin Acetaminophen 500 mg 02/25/25 01:23 02/27/25 00:47 Acetaminophen 500 Mg Tablet PO 500 mg Q6H PRN Administration Mild Pain (1-3) or Fever Hydrocodone Bitart/Acetaminophen 1 tab 02/25/25 01:24 02/26/25 21:19 Hydrocodone/Acetaminophen (*Crx) 5-325 Mg Tablet PO 1 tab Q4H PRN Administration Pain Rated 4-6 Albuterol/Ipratropium 3 ml 02/25/25 09:49 Ipratropium 0.5 Mg/Albuterol Sulfate 2.5 Mg Ampul.Neb 3 Ml INHALATION TIDRT PRN Wheezing Atorvastatin Calcium 20 mg 02/25/25 18:00 02/26/25 16:50 Atorvastatin 20 Mg Tablet PO 20 mg QPM SALMA Administration Bisacodyl 10 mg 02/25/25 08:41 Bisacodyl 10 Mg Suppository RECTAL DAILY PRN constipation Buspirone HCl 10 mg 02/25/25 09:00 02/26/25 16:50 Buspirone Hcl 10 Mg Tablet PO 10 mg TID SALMA Administration Donepezil HCl 10 mg 02/25/25 21:00 02/26/25 21:19 Donepezil Hcl 10 Mg Tablet PO 10 mg HS SALMA Administration Escitalopram Oxalate 5 mg 02/25/25 09:00 02/26/25 08:51 Escitalopram Oxalate 5 Mg Tablet PO 5 mg DAILY SALMA Administration Ceftriaxone Sodium 2 gm in 100 mls @ 200 mls/hr 02/26/25 12:00 02/26/25 14:36 Rocephin 2 Gm/Ns 100 Ml IVPB Infused DAILY SALMA Infusion Levothyroxine Sodium 100 mcg 02/25/25 08:50 02/27/25 02:45 Levothyroxine Sodium 100 Mcg Tablet PO Not Given DAILY@0630 SALMA Loperamide HCl 2 mg 02/25/25 15:58 02/26/25 09:03 Loperamide Hcl 2 Mg Capsule PO 2 mg PRN PRN Administration Diarrhea Losartan Potassium 50 mg 02/25/25 21:00 02/26/25 21:20 Losartan Potassium 50 Mg Tablet PO 50 mg QHS SALMA Administration Melatonin 10 mg 02/25/25 08:41 02/26/25 21:20 Melatonin 5 Mg Tablet PO 10 mg HS PRN Administration Insomnia Morphine Sulfate 2 mg 02/25/25 01:25 Morphine Sulfate (*Crx) 2 Mg/Ml Inj IV PUSH Q4H PRN Pain Rated 7-10 Ondansetron HCl 4 mg 02/27/25 01:46 02/27/25 01:51 Ondansetron Inj 4 Mg/2 Ml Vial IV PUSH 4 mg Q6H PRN Administration Nausea And Vomiting Pantoprazole Sodium 40 mg 02/25/25 09:00 02/26/25 21:20 Pantoprazole 40 Mg Tablet PO 40 mg Q12HR SALMA Administration Radiology Results: ITS Impressions Tibia/Fibula X-Ray 02/24/25 16:39 IMPRESSION: No acute osseous abnormality right leg. Soft tissue swelling which is increased compared to previous examination. Lower Extremity CT 02/24/25 21:29 IMPRESSION: Large right lower leg subcutaneous hematoma, grossly unchanged in size, without definite evidence of active extravasation. Labs Labs: Laboratory Results - last 24 hr 02/26/25 02/27/25 06:23 03:54 WBC 11.4 H 14.0 H RBC 2.66 L 2.57 L Hgb 8.0 L 7.7 L Hct 26.2 L 24.7 L MCV 98.5 96.1 MCH 30.1 30.0 MCHC 30.5 L 31.2 L RDW 15.9 H 15.9 H Plt Count 356 362 MPV 11.5 H 10.8 H Immature Gran % (Auto) 0.4 0.5 Neut % (Auto) 73.5 H 88.9 H Lymph % (Auto) 21.7 8.4 L [place] % (Auto) 3.6 1.9 L Eos % (Auto) 0.4 0.0 Baso % (Auto) 0.4 0.3 Lymph # (Auto) 2.47 1.18 [place] # (Auto) 0.4 0.3 Eos # (Auto) 0.0 0.0 Baso # (Auto) 0.1 0.0 Abs Immat Gran (auto) 0.04 H 0.07 H Absolute Neuts (auto) 8.4 H 12.4 H Absolute Nucleated RBC 0.000 0.000 Nucleated RBC % 0.0 0.0 Sodium 140 138 Potassium 4.5 4.3 Chloride 111 H 109 H Carbon Dioxide 17 L 24 Anion Gap 12 5 BUN 23 H 19 H Creatinine 1.07 H 1.11 H Estim Creat Clear Calc 26 25 Estimated GFR 49 L 47 L Glucose 80 112 H Calcium 8.2 L 8.0 L Magnesium 1.6 % Saturation 18 L Total Bilirubin 0.1 L 0.2 AST 33 35 ALT 26 25 Alkaline Phosphatase 90 99 Total Protein 7.0 7.0 Albumin 2.5 L 2.5 L Vitamin B12 961.0 H Folate 4.0 TSH (Reflex) 6.190 H Free T4 1.55 Total T3 0.60 L Quality VTE Prophylaxis VTE prophylaxis: mechanical ordered
[2025-02-27] MEDS: cefTRIAXone 2 GM/NS 100 ML 2 GM/100 ML BAG IVPB (09:00)
--- NOTE | 2025-02-27 09:19 | P.PNAN_ITS ---
Anes - Initial Pre Proc Eval Procedure: Operation Date: 02/27/25 09:30 Proposed Procedures p Debridement Right Calf Hematoma - Luis M Hernandez DO Date/Time: 02/27/25 09:19 Surgeon: Sundar Richter PA-C Pre Op Diagnosis: Lower extremity hematoma, UTI Patient Data Age: 84 Gender: F Height: 1.55 m Weight: 56.1 kg Last Vital Signs Temp 97.5 F L 02/27/25 08:41 Pulse 51 L 02/27/25 08:41 Resp 16 02/27/25 08:41 BP 128/53 L 02/27/25 08:41 Pulse Ox 98 02/27/25 08:41 O2 Del Method Room Air 02/27/25 08:41 Allergies Allergy/AdvReac Type Severity Reaction Status Date / Time Penicillins Allergy Severe Hives Verified 02/27/25 09:04 av nodle blockers Allergy Severe Anaphylaxis Uncoded 02/25/25 05:55 Home Medications ?Medication ?Instructions ?Recorded ?Confirmed ?Type pantoprazole 40 mg tablet,delayed 40 mg PO BID 30 days #180 tabs 04/12/23 02/25/25 Rx release meclizine 25 mg tablet 25 mg PO Q8H PRN Dizziness 08/31/23 02/25/25 History melatonin 10 mg tablet 10 mg PO HS PRN Insomnia 08/31/23 02/25/25 History donepezil 5 mg tablet 10 mg PO DAILY 03/01/24 02/25/25 History atorvastatin 20 mg tablet 20 mg PO QPM 11/07/24 02/25/25 History losartan 50 mg tablet 50 mg PO QHS 11/07/24 02/25/25 History cholestyramine (with sugar) 4 gram 1 ea PO DAILY@1000 #14 ea 11/19/24 02/25/25 Rx powder for susp in a packet calcium carbonate (Oyster Shell 1,000 mg (2 x 500 mg calcium 12/15/24 02/25/25 Rx Calcium 500) (1,250 mg)) PO 1000,1400,1800 #30 tabs guaifenesin 600 mg tablet, 600 mg PO Q12HR #30 tabs 12/15/24 02/25/25 Rx extended release 12 hr (Mucus Relief ER) acetaminophen 325 mg tablet 650 mg (2 x 325 mg) PO Q4H PRN 01/02/25 02/25/25 Rx Mild Pain (1-3) Or Fever #10 tabs cefdinir 300 mg capsule 300 mg PO Q12HR #5 caps 01/02/25 02/25/25 Rx levothyroxine 100 mcg tablet 100 mcg PO DAILY@0630 #30 tabs 01/02/25 02/25/25 Rx (Synthroid) magnesium oxide 400 mg (241.3 mg 400 mg PO DAILY #30 tabs 01/02/25 02/25/25 Rx magnesium) tablet metronidazole 500 mg tablet 500 mg PO Q8HR #7 tabs 01/02/25 02/25/25 Rx cephalexin 500 mg capsule 500 mg PO Q6H 7 days #28 caps 02/22/25 02/25/25 Rx apixaban 5 mg tablet (Eliquis) 10 mg PO Q12HR 02/25/25 02/25/25 History bisacodyl 10 mg rectal suppository 10 mg RECTAL DAILY PRN constipation 02/25/25 02/25/25 History buspirone 10 mg tablet 10 mg PO TID 02/25/25 02/25/25 History donepezil 10 mg tablet 10 mg PO HS 02/25/25 02/25/25 History ergocalciferol (vitamin D2) 1,250 1,250 mcg PO WEEKLY 02/25/25 02/25/25 History mcg (50,000 unit) capsule (Vitamin D2) escitalopram oxalate 10 mg tablet 5 mg PO DAILY 02/25/25 02/25/25 History ipratropium 0.5 mg-albuterol 3 mg 3 ml inhalation TID 02/25/25 02/25/25 History (2.5 mg base)/3 mL nebulization soln levothyroxine 150 mcg tablet 100 mcg PO DAILY@0630 02/25/25 02/25/25 History loperamide 2 mg capsule 2 mg PO Q6H PRN Diarrhea 02/25/25 02/25/25 History losartan 25 mg tablet 50 mg PO DAILY 02/25/25 02/25/25 History magnesium hydroxide 400 mg/5 mL 400 mg PO HS PRN constipation 02/25/25 02/25/25 History oral suspension silver sulfadiazine 1 % topical 1 applic topical PRN 02/25/25 02/25/25 History cream (Silvadene) Laboratory Tests 02/26/25 02/27/25 06:23 03:54 WBC 14.0 H K/mm3 (4.5-10.0) RBC 2.57 L M/mm3 (4.2-5.4) Hgb 7.7 L g/dL (12.0-15.0) Hct 24.7 L % (37.0-47.0) MCV 96.1 fl (80-100) MCH 30.0 pg (26-34) MCHC 31.2 L g/dl (32-36) RDW 15.9 H % (11.5-14.5) Plt Count 362 k/mm3 (150-375) MPV 10.8 H fl (7.4-10.4) Immature Gran % (Auto) 0.5 % (0-0.5) Neut % (Auto) 88.9 H % (45.5-73.1) Lymph % (Auto) 8.4 L % (18.3-44.2) [place] % (Auto) 1.9 L % (2.6-8.5) Eos % (Auto) 0.0 % (0-4.4) Baso % (Auto) 0.3 % (0.2-1.2) Lymph # (Auto) 1.18 K/mm3 (0.9-3.2) [place] # (Auto) 0.3 K/mm3 (0.1-0.6) Eos # (Auto) 0.0 K/mm3 (0-0.3) Baso # (Auto) 0.0 K/mm3 (0.0-0.1) Abs Immat Gran (auto) 0.07 H K/mm3 (0.00-0.031) Absolute Neuts (auto) 12.4 H K/mm3 (1.3-6.7) Absolute Nucleated RBC 0.000 K/mm3 (0.0-0.012) Nucleated RBC % 0.0 % (0.0-0.2) Sodium 140 mmol/L 138 mmol/L (137-145) (137-145) Potassium 4.5 mmol/L 4.3 mmol/L (3.4-5.0) (3.4-5.0) Chloride 111 H mmol/L 109 H mmol/L (98-107) (98-107) Carbon Dioxide 17 L mmol/L 24 mmol/L (22-30) (22-30) Anion Gap 12 mmol/L 5 mmol/L (4-12) (4-12) BUN 23 H mg/dL 19 H mg/dL (7-17) (7-17) Creatinine 1.07 H mg/dL 1.11 H mg/dL (0.7-1.0) (0.7-1.0) Estim Creat Clear Calc 26 ml/min 25 ml/min Estimated GFR 49 L 47 L (59 - ) (59 - ) Glucose 80 mg/dL 112 H mg/dL (65-110) (65-110) Calcium 8.2 L mg/dL 8.0 L mg/dL (8.4-10.2) (8.4-10.2) Magnesium 1.6 mg/dL (1.6-2.3) % Saturation 18 L % (20-50) Total Bilirubin 0.1 L mg/dL 0.2 mg/dL (0.2-1.3) (0.2-1.3) AST 33 U/L 35 U/L (14-36) (14-36) ALT 26 U/L 25 U/L (6-35) (6-35) Alkaline Phosphatase 90 U/L 99 U/L (38-126) (38-126) Total Protein 7.0 g/dL 7.0 g/dL (6.3-8.2) (6.3-8.2) Albumin 2.5 L g/dL 2.5 L g/dL (3.5-5.1) (3.5-5.1) Free T4 1.55 ng/dL (0.78-2.19) Total T3 0.60 L NG/ML (0.97-1.69) Patient hx anesthesia problems: none Family hx anesthesia problems: none Results Review: All pre-operative results and documents have been reviewed as part of the pre- operative evaluation. [facility] Past Medical History Medical History Kidney stones Diastolic dysfunction Vitamin D deficiency Chronic kidney disease, stage 3 Deep venous thrombosis COPD mixed type Peripheral vascular disease Pancreatitis Right kidney mass Chronic diarrhea Umbilical hernia Anxiety and depression Gastroesophageal reflux disease Hypertension Small bowel obstruction Rheumatoid arthritis Chronic venous stasis dermatitis Closed fracture of greater tuberosity of humerus Fracture of neck of humerus Hypothyroidism (acquired) Depression Surgical History Surgical History History of cataract extraction with lens replacement (2003) History of evacuation of hematoma (2013) lateral thigh History of section X1 History of cholecystectomy Family History Family History Sibling Patient's sister is in good health Mother Diabetes mellitus, Onset Age: 41 Father Heart attack Cardiovascular disease Social History Social History Social History: Emergency contact: Karuna Stone, artist's manager ([phone]). Code status: Do not resuscitate. Smoking packs per day: 2 Smoking cigarettes per day: 40.0 Years smoked: 50 Smoking pack-years: 100.00 Smoking status: Former smoker Second hand tobacco smoke exposure: No Alcohol intake: never Substance use: never Substance use type: does not use Do You Feel Safe in your Home?: Yes Lack of Transportation: No Lack of Food: Never True Current Housing: I Have Housing Concerned About Future Housing: No Difficulty Paying Gas/Electric Bills: No Difficulty Paying for Meds: No Currently Unemployed: No Education: Decline to Answer Difficulty w/ Childcare or Family Care: No Living arrangements: with friend(s) Additional living arrangements comments: Lives with artist's manager/friend, Karuna. 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 Spiritual care concerns: No Anes - Eval Final PreProcedure Day of Procedure 02/27/25 09:19 Patient weight: normal Heart: regular rate and rhythm Lungs: clear to auscultation Airway: Mallampati scale class II Neurological: alert and oriented Last oral intake: >/= 8 hours ASA classification: IV Emergent: no Anesthetic plan: proceed Anesthesia type and monitoring: general LMA and standard monitoring Results Review: All pre-operative results and documents have been reviewed as part of the pre- operative evaluation. Informed Consent: The patient's anesthetic plan and its attendant risks and benefits were discussed with the patient/family/POA. Questions were solicited and answers provided to the satisfaction of the patient/family/POA.
[2025-02-27] MEDS: LACTATED RINGERS 1,000 ML 30 ML IV CONT (09:41)
--- NOTE | 2025-02-27 10:04 | WPDHPUPDATE1 ---
History and Physical Update Update Date/Time: 02/27/25 10:04 History and Physical has been reviewed, including an updated exam of the patient. There are NO changes in the patient's condition. Risks, benefits, and alternatives have been discussed and questions answered. Patient agrees to proceed with procedure.
[2025-02-27] MEDS: BACITRACIN OINTMENT 15 GM TUBE 1 APPLIC TOPICAL (10:36)
--- NOTE | 2025-02-27 10:54 | P.OP_ITS ---
Procedure Note - Detailed Date of Procedure 02/27/25 Pre-op Diagnosis Lower extremity hematoma, UTI Post-op Diagnosis Same Procedure Performed 1. Sharp excisional debridement of necrotic skin from hematoma of right lower leg measuring 12 cm x 10 cm anteriorly and 7 cm x 17 cm posteriorly 2. Evacuation of right lower extremity subcutaneous hematoma Surgeon Luis M Hernandez DO Anesthesia General Indications This is an 84-year-old woman who presented with a large right lower extremity hematoma. She has dementia and is a resident of a retirement and does not recall any injury to the leg. She was on Eliquis. The skin overlying the hematoma is now appeared necrotic and has some area of ulceration and weeping on the anterior side. Decision was made to proceed with debridement and evacuation of right lower extremity hematoma. Findings The right lower extremity hematoma appeared to involve the subcutaneous space of the anterior and posterior lower leg. There did appear to be a strip of healthy appearing skin the lateral aspect. The anterior portion measured about 12 cm x 10 cm and the posterior portion measured about 7 cm x 17 cm. The skin overlying the entire hematoma appeared necrotic and was sharply excised using a 15 blade scalpel. There was likely about 200 mL of old clotted blood underneath the skin. There did not appear to be any evidence of infection. The underlying subcutaneous tissue all appeared healthy and viable. Description of Procedure Procedure as well as risks, benefits, and alternatives were discussed with the patient. Written consent was obtained and placed in chart prior to procedure. Patient was brought back to surgical suite. She was placed supine on operating table. Time-out was done to confirm patient and procedure. She was then intubated by the anesthesia department. Her right lower extremity was prepped and draped in sterile fashion using chlorhexidine prep. There was some necrotic skin with ulceration on the anterior surface that was initially excised using a 15 blade scalpel. I then was able to evacuate the hematoma by suctioning out all of the old blood from within the subcutaneous space. I then carefully inspected the skin overlying the hematoma and all of the skin appeared necrotic. I then began sharply excising the skin using a 15 blade scalpel. The skin was excised back to the margins of the hematoma where the surrounding skin appeared healthy and viable. The anterior portion appeared to be about 12 cm x 10 cm and the posterior portion was 7 cm x 17 cm. After exposing the entire hematoma I was then able to completely evacuate any further blood and wash out the area with sterile saline. The underlying tissue appeared healthy and viable. Bacitracin ointment was then applied followed by Xeroform gauze, fluff gauze, and Kerlix wrap. The patient was then awakened from anesthesia, extubated, and transferred to recovery. Estimated Blood Loss 5 Complications No immediate complications Condition Stable Disposition Floor [facility] Billing Surgery - Charge Forward: Surgery Billing
[2025-02-27] MEDS: fentaNYL CITRATE INJ (*CRX) 100 MCG/2 ML VIAL 25 MCG IV PUSH (11:11)
[2025-02-27] MEDS: metroNIDAZOLE 500 MG/ISO 100ML 500 MG/100 ML BAG 100 MG IVPB ×3 (11:59→23:46)
[2025-02-27] MEDS: PANTOPRAZOLE 40 MG TABLET PO ×2 (12:03→21:23)
[2025-02-27] MEDS: ESCITALOPRAM OXALATE 5 MG TABLET PO (12:04)
[2025-02-27] MEDS: busPIRone HCL 10 MG TABLET PO ×2 (12:04→16:54)
--- NOTE | 2025-02-27 15:04 | PC.NURSE ---
PRASHANT SUTTON ASSISTANT DISTRIBUTION MANAGER ON FLOOR AND NOTIFIED THAT [facility] DRESSING HAD YELLOW DRAINAGE ON KERLEX. DRESSING REINFORCED DRESSING WITH ABD AND ADDITIONAL KERLEX.
[2025-02-27] MEDS: ATORVASTATIN 20 MG TABLET PO (16:54)
[2025-02-27] MEDS: HYDROcodone/acetaminophen (*CRX) 5-325 MG TABLET 1 TAB PO ×2 (16:59→21:22)
[2025-02-27] MEDS: MELATONIN 5 MG TABLET 10 MG PO (21:22)
[2025-02-27] MEDS: DONEPEZIL HCL 10 MG TABLET PO (21:23)
[2025-02-27] MEDS: LOSARTAN POTASSIUM 50 MG TABLET PO (21:23)
[2025-02-27] MEDS: MORPHINE SULFATE (*CRX) 2 MG/ML INJ IV PUSH (23:52)
[2025-02-28] VITALS (10 sets, daily range): BP systolic 131–136; BP diastolic 55–59; PULSE 46–63; RESP 14–16; TEMP 36–36.5; O2SAT 99–100; BMI 23.3
[2025-02-28] MEDS: LEVOTHYROXINE SODIUM 100 MCG TABLET PO (06:15)
[2025-02-28 06:21] LABS: Basophils Percent Auto 0.3 % (0.2-1.2); Eosinophils Percent Auto 0.3 % (0-4.4); Hematocrit 23.9 % (37.0-47.0); Hemoglobin 7.5 g/dL (12.0-15.0); Immature Granulocyte Absolute 0.08 K/mm3 (0.00-0.031); Immature Granulocyte Percent A 0.7 % (0-0.5); Lymphocytes Absolute Auto 3.15 K/mm3 (0.9-3.2); Mean Corpuscular HGB Conc 31.4 g/dl (32-36); Mean Corpuscular Hemoglobin 30.1 pg (26-34); Mean Platelet Volume 10.2 fl (7.4-10.4); Monocytes Absolute Auto 0.5 K/mm3 (0.1-0.6); Monocytes Percent Auto 4.2 % (2.6-8.5); Neutrophils Absolute Auto 7.1 K/mm3 (1.3-6.7); Neutrophils Percent Auto 65.5 % (45.5-73.1); Platelet Count Result 375 k/mm3 (150-375); Red Blood Count 2.49 M/mm3 (4.2-5.4); Red Cell Distribution Width 15.9 % (11.5-14.5); White Blood Count 10.9 K/mm3 (4.5-10.0)
[2025-02-28 06:34] LABS: Alanine Aminotransferase 27 U/L (6-35); Albumin Level 2.4 g/dL (3.5-5.1); Alkaline Phosphatase 88 U/L (38-126); Anion Gap 6 mmol/L (4-12); Aspartate Amino Transferase 33 U/L (14-36); Bilirubin,Total 0.2 mg/dL (0.2-1.3); Blood Urea Nitrogen 18 mg/dL (7-17); Calcium 8.1 mg/dL (8.4-10.2); Carbon Dioxide 26 mmol/L (22-30); Chloride 106 mmol/L (98-107); Estimated CRCL calculation 28 ml/min; Estimated Glomerular Filt Rate 52; Glucose 76 mg/dL (65-110); Potassium 4.4 mmol/L (3.4-5.0); Sodium 138 mmol/L (137-145)
[2025-02-28] MEDS: metroNIDAZOLE 500 MG/ISO 100ML 500 MG/100 ML BAG 100 MG IVPB ×4 (07:12→23:38)
--- NOTE | 2025-02-28 07:49 | P.PNIM_ITS ---
Progress Note: A&P Assessment and Plan (1) Hematoma of right lower leg: Code(s): S80.11XA - Contusion of right lower leg, initial encounter Status: Acute Assessment and Plan: * Denies trauma * Wound care consulted recommending surgery consult of time due to size hematoma * Surgery consulted, plan for OR to debridement of wound AM * Holding Eliquis * Excisional debridement of necrotic skin from hematoma of RLL and evacuation of RLE subQ hematoma today * RLE hematoma appeared to involve the subcutaneous space of the anterior and posterior lower leg.The anterior portion measured about 12 cm x 10 cm and the posterior portion measured about 7 cm x 17 cm. * POD 1 Excisional debridement of necrotic skin from hematoma of right lower leg (2) Cellulitis of right lower extremity: Code(s): L03.115 - Cellulitis of right lower limb Status: Acute Assessment and Plan: * See above * Monitor vital signs, I&Os, neuro status and patient is a fall risk * Monitor serum electrolytes, CBC, cultures, WBC and temp curve * Gen surg following, debridement today * Rocephin 2gm * Gentle IV fluids resuscitation (3) Anemia: Code(s): D64.9 - Anemia, unspecified Status: Acute Assessment and Plan: * Acute blood loss anemia and chronic anemia * Trend hemoglobin * Transfuse for hemoglobin less than 7 or symptomatic * No need for transfusion at this time * No signs of acute bleeding currently * Fe 32, TIBC 178, 18% Saturation (4) Bacteremia: Code(s): R78.81 - Bacteremia Status: Acute Assessment and Plan: - suspected source: UTI, cellulitis, hematoma - blood cultures drawn on 02/24, Clostridium R. - Increase Rocephin to 2gm, add Flagyl - Monitor WBC, vitals - Monitor final BC results (5) UTI (urinary tract infection): Qualifiers: Hematuria presence: with hematuria Urinary tract infection type: acute cystitis Qualified Code(s): N30.01 - Acute cystitis with hematuria Code(s): N39.0 - Urinary tract infection, site not specified Status: Acute Assessment and Plan: IV Rocephin, increased to 2gm Culture negative for growth (6) HTN (hypertension): Qualifiers: Hypertension type: essential hypertension Qualified Code(s): I10 - Essential (primary) hypertension Code(s): I10 - Essential (primary) hypertension Status: Acute Assessment and Plan: Continue losartan (7) Hypothyroidism (acquired): Code(s): E03.9 - Hypothyroidism, unspecified Status: Chronic Assessment and Plan: Continue Synthroid Time Spent With Patient Time: Subjective Date/time seen: 02/28/25 07:49 Interval history: 84 year old female on Eliquis who presents for evaluation bilateral leg pain and right leg swelling. Patient was evaluated in ER 2 days ago for right leg hematoma. Patient denies trauma to the leg. 02/28/2025 Patient sitting comfortably in bed at time of exam. Denies any chest pain, SOB, n/v, or abdominal pain at time of exam. POD 1 of excisional debridement of necrotic skin from hematoma of right lower leg. Has no complaints at this time. Review of Systems Review of Systems: 12 systems were reviewed and are negativ e except for as per HPI. Exam Narrative: General: well appearing, appears stated age. HEENT: normocephalic, atraumatic. Mucous membranes moist. EOMI, PERRLA, bilateral sclera anicteric, no conjunctival injection. Neck supple without JVD, lymphadenopathy, or bruit. Respiratory: clear to ascultation bilaterally. No rales/rhonic/wheezes. Cardiovascular: Regular rate and rhythm, normal S1-S2 upon ascultation. No murmurs, rubs, or clicks. Abdomen: Soft, round, no pulsatile masses, nondistended and nontender. No rebound, no guarding. No CVA tenderness, no hepatosplenomegaly. Bowel sounds present to all four quadrants. No high pitch or tinkling sounds, resonant to percussion. Extremities: No cyanosis, clubbing, or edema present. Pulses are palpable 2/2. Right lower extremity Large hematoma and edema Neuro: Alert and orientated x 4. PERRLA. Cranial nerves 2-12 intact without focal deficit. Skin: Right lower leg dressing intact and drain. Warm, dry, and intact, without rash, or lesion. Psych: pleasant, cooperative, normal speech, normal affect, no hallucinations, no dysarthia Objective Data Vital Signs Vital Signs: Vital Signs - 24 hr 02/27/25 08:00 02/27/25 08:41 02/27/25 10:44 Temperature 97.5 F L 97.1 F L Pulse Rate 51 L 68 Respiratory Rate 16 16 Blood Pressure 128/53 L 156/71 H Pulse Oximetry 98 98 100 Oxygen Delivery Room Air Room Air Oxymizer Oxygen Flow Rate 8 Fraction of Inspired Oxygen 02/27/25 10:55 02/27/25 11:10 02/27/25 11:25 Temperature Pulse Rate 64 65 61 Respiratory Rate 14 16 12 Blood Pressure 159/71 H 138/69 141/67 H Pulse Oximetry 99 100 99 Oxygen Delivery Room Air Room Air Nasal Cannula Oxygen Flow Rate 2 Fraction of Inspired Oxygen 02/27/25 11:40 02/27/25 12:00 02/27/25 12:01 Temperature 96.8 F L Pulse Rate 63 60 62 Respiratory Rate 15 14 Blood Pressure 137/66 137/65 Pulse Oximetry 96 100 Oxygen Delivery Nasal Cannula Oxygen Flow Rate 2 Fraction of Inspired Oxygen 02/27/25 13:31 02/27/25 15:52 02/27/25 16:00 Temperature 97.4 F L Pulse Rate 66 48 L Respiratory Rate 15 Blood Pressure 128/68 Pulse Oximetry 100 99 Oxygen Delivery Nasal Cannula Oxygen Flow Rate 2 Fraction of Inspired Oxygen 28 02/27/25 20:00 02/27/25 20:00 02/27/25 20:56 Temperature Pulse Rate 59 L Respiratory Rate Blood Pressure Pulse Oximetry 100 96 Oxygen Delivery Nasal Cannula Nasal Cannula Oxygen Flow Rate 2 2 Fraction of Inspired Oxygen 02/27/25 21:25 02/28/25 00:00 02/28/25 04:00 Temperature 97.5 F L Pulse Rate 56 L 47 L 46 L Respiratory Rate 16 Blood Pressure 132/61 Pulse Oximetry 100 Oxygen Delivery Oxygen Flow Rate Fraction of Inspired Oxygen 02/28/25 06:00 Temperature 97.7 F Pulse Rate 50 L Respiratory Rate 16 Blood Pressure 136/55 L Pulse Oximetry 100 Oxygen Delivery Oxygen Flow Rate Fraction of Inspired Oxygen Intake/Output Intake/Output: Intake & Output 02/25/25 02/26/25 02/27/25 02/28/25 23:59 23:59 23:59 23:59 Intake Total 1577 1030 1771.5 100 Output Total 50 250 0 Balance 2526 313 8628.5 100 Meds/Results Medications: Active Medications Generic Name Dose Route Start Last Admin Trade Name Freq PRN Reason Stop Dose Admin Acetaminophen 500 mg 02/25/25 01:23 02/27/25 00:47 Acetaminophen 500 Mg Tablet PO 500 mg Q6H PRN Administration Mild Pain (1-3) or Fever Hydrocodone Bitart/Acetaminophen 1 tab 02/25/25 01:24 02/27/25 21:22 Hydrocodone/Acetaminophen (*Crx) 5-325 Mg Tablet PO 1 tab Q4H PRN Administration Pain Rated 4-6 Albuterol/Ipratropium 3 ml 02/25/25 09:49 Ipratropium 0.5 Mg/Albuterol Sulfate 2.5 Mg Ampul.Neb 3 Ml INHALATION TIDRT PRN Wheezing Atorvastatin Calcium 20 mg 02/25/25 18:00 02/27/25 16:54 Atorvastatin 20 Mg Tablet PO 20 mg QPM SALMA Administration Bisacodyl 10 mg 02/25/25 08:41 Bisacodyl 10 Mg Suppository RECTAL DAILY PRN constipation Buspirone HCl 10 mg 02/25/25 09:00 02/27/25 16:54 Buspirone Hcl 10 Mg Tablet PO 10 mg TID SALMA Administration Donepezil HCl 10 mg 02/25/25 21:00 02/27/25 21:23 Donepezil Hcl 10 Mg Tablet PO 10 mg HS SALMA Administration Escitalopram Oxalate 5 mg 02/25/25 09:00 02/27/25 12:04 Escitalopram Oxalate 5 Mg Tablet PO 5 mg DAILY SALMA Administration Ceftriaxone Sodium 2 gm in 100 mls @ 200 mls/hr 02/26/25 12:00 02/27/25 09:00 Rocephin 2 Gm/Ns 100 Ml IVPB 200 mls/hr DAILY SALMA Administration Metronidazole 500 mg in 100 mls @ 100 mls/hr 02/27/25 11:00 02/28/25 07:12 Flagyl 500 Mg/Iso Soln 100 Ml IVPB 100 mls/hr Q6HR SALMA Administration Levothyroxine Sodium 100 mcg 02/25/25 08:50 02/28/25 06:15 Levothyroxine Sodium 100 Mcg Tablet PO 100 mcg DAILY@0630 SALMA Administration Loperamide HCl 2 mg 02/25/25 15:58 02/26/25 09:03 Loperamide Hcl 2 Mg Capsule PO 2 mg PRN PRN Administration Diarrhea Losartan Potassium 50 mg 02/25/25 21:00 02/27/25 21:23 Losartan Potassium 50 Mg Tablet PO 50 mg QHS SALMA Administration Melatonin 10 mg 02/25/25 08:41 02/27/25 21:22 Melatonin 5 Mg Tablet PO 10 mg HS PRN Administration Insomnia Morphine Sulfate 2 mg 02/27/25 11:46 02/27/25 23:52 Morphine Sulfate (*Crx) 2 Mg/Ml Inj IV PUSH 2 mg Q2H PRN Administration Breakthrough Pain Rated 4-6 or NPO Morphine Sulfate 4 mg 02/27/25 11:46 Morphine Sulfate (*Crx) 4 Mg/Ml Inj IV PUSH Q2H PRN Breakthrough Pain Rated 7-10 or NPO Naloxone HCl 0.1 mg 02/27/25 11:46 Naloxone Hcl 0.4 Mg/Ml Vial IV PUSH Q2M PRN Opiate Reversal Ondansetron HCl 4 mg 02/27/25 01:46 02/27/25 01:51 Ondansetron Inj 4 Mg/2 Ml Vial IV PUSH 4 mg Q6H PRN Administration Nausea And Vomiting Pantoprazole Sodium 40 mg 02/25/25 09:00 02/27/25 21:23 Pantoprazole 40 Mg Tablet PO 40 mg Q12HR SALMA Administration Radiology Results: ITS Impressions Tibia/Fibula X-Ray 02/24/25 16:39 IMPRESSION: No acute osseous abnormality right leg. Soft tissue swelling which is increased compared to previous examination. Lower Extremity CT 02/24/25 21:29 IMPRESSION: Large right lower leg subcutaneous hematoma, grossly unchanged in size, without definite evidence of active extravasation. Labs Labs: Laboratory Results - last 24 hr 02/28/25 06:12 WBC 10.9 H RBC 2.49 L Hgb 7.5 L Hct 23.9 L MCV 96.0 MCH 30.1 MCHC 31.4 L RDW 15.9 H Plt Count 375 MPV 10.2 Immature Gran % (Auto) 0.7 H Neut % (Auto) 65.5 Lymph % (Auto) 29.0 [place] % (Auto) 4.2 Eos % (Auto) 0.3 Baso % (Auto) 0.3 Lymph # (Auto) 3.15 [place] # (Auto) 0.5 Eos # (Auto) 0.0 Baso # (Auto) 0.0 Abs Immat Gran (auto) 0.08 H Absolute Neuts (auto) 7.1 H Absolute Nucleated RBC 0.000 Nucleated RBC % 0.0 Sodium 138 Potassium 4.4 Chloride 106 Carbon Dioxide 26 Anion Gap 6 BUN 18 H Creatinine 1.01 H Estim Creat Clear Calc 28 Estimated GFR 52 L Glucose 76 Calcium 8.1 L Total Bilirubin 0.2 AST 33 ALT 27 Alkaline Phosphatase 88 Total Protein 6.0 L Albumin 2.4 L Quality VTE Prophylaxis VTE prophylaxis: mechanical ordered
--- NOTE | 2025-02-28 08:52 | PCPTNOTE ---
Attempted PT evaluation, pt refused stating she wanted to sleep at this time. Nurse aware. Will follow.
[2025-02-28] MEDS: busPIRone HCL 10 MG TABLET PO ×3 (09:10→18:30)
[2025-02-28] MEDS: HYDROcodone/acetaminophen (*CRX) 5-325 MG TABLET 1 TAB PO ×2 (09:12→14:01)
[2025-02-28] MEDS: cefTRIAXone 2 GM/NS 100 ML 2 GM/100 ML BAG IVPB (09:13)
[2025-02-28] MEDS: ESCITALOPRAM OXALATE 5 MG TABLET PO (09:13)
--- NOTE | 2025-02-28 14:09 | WPDANESPN ---
Anes - Prog Note Post-Op Date/Time: 02/28/25 14:09 Cardiovascular status: normal Respiratory status: normal Airway patency: baseline Mental status: baseline Post-Op hydration status: normal Vital Signs: Last Vital Signs Temp 36.5 C 02/28/25 06:00 Pulse 50 L 02/28/25 06:00 Resp 16 02/28/25 06:00 BP 136/55 L 02/28/25 06:00 Pulse Ox 100 02/28/25 06:00 O2 Del Method Nasal Cannula 02/28/25 12:05 O2 Flow Rate 2 02/28/25 12:05 FiO2 28 02/27/25 15:52 Pain Score (VAS): 1 I/O: Intake & Output 02/27/25 02/28/25 02/28/25 23:59 07:59 15:59 Intake Total 960 100 340 Output Total 0 Balance 960 100 340 Laboratory Tests 02/28/25 06:12 02/28/25 06:12 02/28/25 06:12 WBC 10.9 H RBC 2.49 L Hgb 7.5 L Hct 23.9 L MCV 96.0 MCH 30.1 MCHC 31.4 L RDW 15.9 H Plt Count 375 MPV 10.2 Immature Gran % (Auto) 0.7 H Neut % (Auto) 65.5 Lymph % (Auto) 29.0 [place] % (Auto) 4.2 Eos % (Auto) 0.3 Baso % (Auto) 0.3 Lymph # (Auto) 3.15 [place] # (Auto) 0.5 Eos # (Auto) 0.0 Baso # (Auto) 0.0 Abs Immat Gran (auto) 0.08 H Absolute Neuts (auto) 7.1 H Absolute Nucleated RBC 0.000 Nucleated RBC % 0.0 Sodium 138 Potassium 4.4 Chloride 106 Carbon Dioxide 26 Anion Gap 6 BUN 18 H Creatinine 1.01 H Estim Creat Clear Calc 28 Estimated GFR 52 L Glucose 76 Calcium 8.1 L Total Bilirubin 0.2 AST 33 ALT 27 Alkaline Phosphatase 88 Total Protein 6.0 L Albumin 2.4 L Microbiology 02/24/25 18:30 Blood Blood Culture - Preliminary Clostridium ramosum 02/24/25 18:30 Blood Blood Culture - Preliminary Clostridium ramosum Post-procedural complaints: none Patient Feedback: Patient satisfied with anesthetic care.
[2025-02-28] MEDS: ATORVASTATIN 20 MG TABLET PO (18:30)
[2025-02-28] MEDS: MELATONIN 5 MG TABLET 10 MG PO (21:06)
[2025-02-28] MEDS: LOSARTAN POTASSIUM 50 MG TABLET PO (21:06)
[2025-02-28] MEDS: DONEPEZIL HCL 10 MG TABLET PO (21:06)
[2025-03-01] VITALS (8 sets, daily range): BP systolic 136–168; BP diastolic 56–68; PULSE 50–54; RESP 16; TEMP 36.1–36.4; O2SAT 100
[2025-03-01 05:35] LABS: Basophils Percent Auto 0.3 % (0.2-1.2); Eosinophils Percent Auto 0.2 % (0-4.4); Hematocrit 23.9 % (37.0-47.0); Hemoglobin 7.5 g/dL (12.0-15.0); Immature Granulocyte Absolute 0.08 K/mm3 (0.00-0.031); Immature Granulocyte Percent A 0.8 % (0-0.5); Lymphocytes Absolute Auto 2.77 K/mm3 (0.9-3.2); Lymphocytes Percent Auto 26.8 % (18.3-44.2); Mean Corpuscular HGB Conc 31.4 g/dl (32-36); Mean Corpuscular Hemoglobin 30.5 pg (26-34); Mean Corpuscular Volume 97.2 fl (80-100); Mean Platelet Volume 10.8 fl (7.4-10.4); Monocytes Absolute Auto 0.5 K/mm3 (0.1-0.6); Monocytes Percent Auto 4.5 % (2.6-8.5); Neutrophils Percent Auto 67.4 % (45.5-73.1); Platelet Count Result 373 k/mm3 (150-375); Red Blood Count 2.46 M/mm3 (4.2-5.4); Red Cell Distribution Width 15.9 % (11.5-14.5); White Blood Count 10.3 K/mm3 (4.5-10.0)
[2025-03-01 05:47] LABS: Alanine Aminotransferase 30 U/L (6-35); Albumin Level 2.3 g/dL (3.5-5.1); Alkaline Phosphatase 89 U/L (38-126); Anion Gap 5 mmol/L (4-12); Aspartate Amino Transferase 34 U/L (14-36); Bilirubin,Total < 0.1 mg/dL (0.2-1.3); Blood Urea Nitrogen 16 mg/dL (7-17); Calcium 7.8 mg/dL (8.4-10.2); Carbon Dioxide 27 mmol/L (22-30); Chloride 105 mmol/L (98-107); Estimated CRCL calculation 28 ml/min; Estimated Glomerular Filt Rate 52; Glucose 79 mg/dL (65-110); Potassium 4.3 mmol/L (3.4-5.0); Sodium 137 mmol/L (137-145)
[2025-03-01] MEDS: LEVOTHYROXINE SODIUM 100 MCG TABLET PO (06:01)
[2025-03-01] MEDS: metroNIDAZOLE 500 MG/ISO 100ML 500 MG/100 ML BAG 100 MG IVPB ×2 (06:01→11:09)
--- NOTE | 2025-03-01 07:32 | P.PNIM_ITS ---
Progress Note: A&P Assessment and Plan (1) Hematoma of right lower leg: Code(s): S80.11XA - Contusion of right lower leg, initial encounter Status: Acute Assessment and Plan: * Denies trauma * Wound care consulted recommending surgery consult of time due to size hematoma * Surgery consulted, plan for OR to debridement of wound AM * Holding Eliquis * Excisional debridement of necrotic skin from hematoma of RLL and evacuation of RLE subQ hematoma today * RLE hematoma appeared to involve the subcutaneous space of the anterior and posterior lower leg.The anterior portion measured about 12 cm x 10 cm and the posterior portion measured about 7 cm x 17 cm. * POD 2 Excisional debridement of necrotic skin from hematoma of right lower leg (2) Cellulitis of right lower extremity: Code(s): L03.115 - Cellulitis of right lower limb Status: Acute Assessment and Plan: * See above * Monitor vital signs, I&Os, neuro status and patient is a fall risk * Monitor serum electrolytes, CBC, cultures, WBC and temp curve * Gen surg following, debridement today * Rocephin 2gm * Gentle IV fluids resuscitation (3) Anemia: Code(s): D64.9 - Anemia, unspecified Status: Acute Assessment and Plan: * Acute blood loss anemia and chronic anemia * Trend hemoglobin * Transfuse for hemoglobin less than 7 or symptomatic * No need for transfusion at this time * No signs of acute bleeding currently * Fe 32, TIBC 178, 18% Saturation (4) Bacteremia: Code(s): R78.81 - Bacteremia Status: Acute Assessment and Plan: - suspected source: UTI, cellulitis, hematoma - blood cultures drawn on 02/24, Clostridium R. - Increase Rocephin to 2gm, add Flagyl - Monitor WBC, vitals - Monitor final BC results (5) UTI (urinary tract infection): Qualifiers: Hematuria presence: with hematuria Urinary tract infection type: acute cystitis Qualified Code(s): N30.01 - Acute cystitis with hematuria Code(s): N39.0 - Urinary tract infection, site not specified Status: Acute Assessment and Plan: IV Rocephin, increased to 2gm Culture negative for growth (6) HTN (hypertension): Qualifiers: Hypertension type: essential hypertension Qualified Code(s): I10 - Essential (primary) hypertension Code(s): I10 - Essential (primary) hypertension Status: Acute Assessment and Plan: Continue losartan (7) Hypothyroidism (acquired): Code(s): E03.9 - Hypothyroidism, unspecified Status: Chronic Assessment and Plan: Continue Synthroid Subjective Date/time seen: 03/01/25 07:32 Interval history: 84 year old female on Eliquis who presents for evaluation bilateral leg pain and right leg swelling. Patient was evaluated in ER 2 days ago for right leg hematoma. Patient denies trauma to the leg. 03/01/2025 POD 2 Hematoma debridement/excavation. Patient sitting comfortably in bed at time of exam. She still endorses some right lower extremity pain at the sight of the surgical procedure. Difficult to ascertain if pain is better or worse as patient seems to display some confusion but she remains A&Ox3. Review of Systems Review of Systems: 12 systems were reviewed and are negativ e except for as per HPI. Exam Narrative: General: well appearing, appears stated age. HEENT: normocephalic, atraumatic. Mucous membranes moist. EOMI, PERRLA Respiratory: clear to ascultation bilaterally. No rales/rhonic/wheezes. Cardiovascular: Regular rate and rhythm, normal S1-S2 upon ascultation. No murmurs, rubs, or clicks. Abdomen: Soft, round, no pulsatile masses, nondistended and nontender. No rebound, no guarding. No CVA tenderness, no hepatosplenomegaly. Bowel sounds present to all four quadrants. No high pitch or tinkling sounds, resonant to percussion. Extremities: No cyanosis, clubbing, or edema present. Pulses are palpable 2/2. Right lower extremity Large hematoma post-op debridement/excavation Neuro: Alert and orientated x 4. PERRLA. Skin: Right lower leg dressing intact and drain. Warm, dry, and intact, without rash, or lesion. Psych: pleasant, cooperative, normal speech, normal affect, no hallucinations, no dysarthia Objective Data Vital Signs Vital Signs: Vital Signs - 24 hr 02/28/25 08:06 02/28/25 11:08 02/28/25 12:03 Temperature Pulse Rate 63 54 L Respiratory Rate Blood Pressure Pulse Oximetry Oxygen Delivery Nasal Cannula Oxygen Flow Rate 2 Fraction of Inspired Oxygen 02/28/25 12:05 02/28/25 13:52 02/28/25 16:02 Temperature 96.8 F L Pulse Rate 54 L 53 L Respiratory Rate 16 Blood Pressure 134/59 L Pulse Oximetry 100 Oxygen Delivery Nasal Cannula Oxygen Flow Rate 2 Fraction of Inspired Oxygen 02/28/25 20:02 02/28/25 20:30 02/28/25 21:00 Temperature 97.5 F L Pulse Rate 58 L 58 L 58 L Respiratory Rate 14 14 Blood Pressure 131/56 L Pulse Oximetry 99 99 Oxygen Delivery Nasal Cannula Oxygen Flow Rate 1 Fraction of Inspired Oxygen 03/01/25 00:02 03/01/25 04:03 03/01/25 05:14 Temperature 97.5 F L Pulse Rate 54 L 50 L 53 L Respiratory Rate 16 Blood Pressure 168/68 H Pulse Oximetry 100 Oxygen Delivery Oxygen Flow Rate Fraction of Inspired Oxygen Intake/Output Intake/Output: Intake & Output 02/26/25 02/27/25 02/28/25 03/01/25 23:59 23:59 23:59 23:59 Intake Total 1030 1871.5 1940 200 Output Total 50 250 400 400 Balance 980 1621.5 1540 -200 Meds/Results Medications: Active Medications Generic Name Dose Route Start Last Admin Trade Name Freq PRN Reason Stop Dose Admin Acetaminophen 500 mg 02/25/25 01:23 02/27/25 00:47 Acetaminophen 500 Mg Tablet PO 500 mg Q6H PRN Administration Mild Pain (1-3) or Fever Hydrocodone Bitart/Acetaminophen 1 tab 02/25/25 01:24 02/28/25 14:01 Hydrocodone/Acetaminophen (*Crx) 5-325 Mg Tablet PO 1 tab Q4H PRN Administration Pain Rated 4-6 Albuterol/Ipratropium 3 ml 02/25/25 09:49 Ipratropium 0.5 Mg/Albuterol Sulfate 2.5 Mg Ampul.Neb 3 Ml INHALATION TIDRT PRN Wheezing Atorvastatin Calcium 20 mg 02/25/25 18:00 02/28/25 18:30 Atorvastatin 20 Mg Tablet PO 20 mg QPM SALMA Administration Bisacodyl 10 mg 02/25/25 08:41 Bisacodyl 10 Mg Suppository RECTAL DAILY PRN constipation Buspirone HCl 10 mg 02/25/25 09:00 02/28/25 18:30 Buspirone Hcl 10 Mg Tablet PO 10 mg TID SALMA Administration Donepezil HCl 10 mg 02/25/25 21:00 02/28/25 21:06 Donepezil Hcl 10 Mg Tablet PO 10 mg HS SALMA Administration Escitalopram Oxalate 5 mg 02/25/25 09:00 02/28/25 09:13 Escitalopram Oxalate 5 Mg Tablet PO 5 mg DAILY SALMA Administration Ceftriaxone Sodium 2 gm in 100 mls @ 200 mls/hr 02/26/25 12:00 02/28/25 09:43 Rocephin 2 Gm/Ns 100 Ml IVPB Infused DAILY [facility] Infusion Metronidazole 500 mg in 100 mls @ 100 mls/hr 02/27/25 11:00 03/01/25 06:01 Flagyl 500 Mg/Iso Soln 100 Ml IVPB 100 mls/hr Q6HR SALMA Administration Levothyroxine Sodium 100 mcg 02/25/25 08:50 03/01/25 06:01 Levothyroxine Sodium 100 Mcg Tablet PO 100 mcg DAILY@0630 SALMA Administration Loperamide HCl 2 mg 02/25/25 15:58 02/26/25 09:03 Loperamide Hcl 2 Mg Capsule PO 2 mg PRN PRN Administration Diarrhea Losartan Potassium 50 mg 02/25/25 21:00 02/28/25 21:06 Losartan Potassium 50 Mg Tablet PO 50 mg QHS SALMA Administration Melatonin 10 mg 02/25/25 08:41 02/28/25 21:06 Melatonin 5 Mg Tablet PO 10 mg HS PRN Administration Insomnia Morphine Sulfate 2 mg 02/27/25 11:46 02/27/25 23:52 Morphine Sulfate (*Crx) 2 Mg/Ml Inj IV PUSH 2 mg Q2H PRN Administration Breakthrough Pain Rated 4-6 or NPO Morphine Sulfate 4 mg 02/27/25 11:46 Morphine Sulfate (*Crx) 4 Mg/Ml Inj IV PUSH Q2H PRN Breakthrough Pain Rated 7-10 or NPO Naloxone HCl 0.1 mg 02/27/25 11:46 Naloxone Hcl 0.4 Mg/Ml Vial IV PUSH Q2M PRN Opiate Reversal Ondansetron HCl 4 mg 02/27/25 01:46 02/27/25 01:51 Ondansetron Inj 4 Mg/2 Ml Vial IV PUSH 4 mg Q6H PRN Administration Nausea And Vomiting Pantoprazole Sodium 40 mg 02/25/25 09:00 02/28/25 21:06 Pantoprazole 40 Mg Tablet PO Not Given Q12HR [facility] Radiology Results: ITS Impressions Tibia/Fibula X-Ray 02/24/25 16:39 IMPRESSION: No acute osseous abnormality right leg. Soft tissue swelling which is increased compared to previous examination. Lower Extremity CT 02/24/25 21:29 IMPRESSION: Large right lower leg subcutaneous hematoma, grossly unchanged in size, without definite evidence of active extravasation. Labs Labs: Laboratory Results - last 24 hr 03/01/25 05:13 WBC 10.3 H RBC 2.46 L Hgb 7.5 L Hct 23.9 L MCV 97.2 MCH 30.5 MCHC 31.4 L RDW 15.9 H Plt Count 373 MPV 10.8 H Immature Gran % (Auto) 0.8 H Neut % (Auto) 67.4 Lymph % (Auto) 26.8 [place] % (Auto) 4.5 Eos % (Auto) 0.2 Baso % (Auto) 0.3 Lymph # (Auto) 2.77 [place] # (Auto) 0.5 Eos # (Auto) 0.0 Baso # (Auto) 0.0 Abs Immat Gran (auto) 0.08 H Absolute Neuts (auto) 7.0 H Absolute Nucleated RBC 0.000 Nucleated RBC % 0.0 Sodium 137 Potassium 4.3 Chloride 105 Carbon Dioxide 27 Anion Gap 5 BUN 16 Creatinine 1.01 H Estim Creat Clear Calc 28 Estimated GFR 52 L Glucose 79 Calcium 7.8 L Total Bilirubin < 0.1 L AST 34 ALT 30 Alkaline Phosphatase 89 Total Protein 6.0 L Albumin 2.3 L Quality VTE Prophylaxis VTE prophylaxis: mechanical ordered
[2025-03-01] MEDS: ESCITALOPRAM OXALATE 5 MG TABLET PO (08:45)
[2025-03-01] MEDS: busPIRone HCL 10 MG TABLET PO ×2 (08:45→13:49)
[2025-03-01] MEDS: cefTRIAXone 2 GM/NS 100 ML 2 GM/100 ML BAG IVPB (08:46)
[2025-03-01] MEDS: HYDROcodone/acetaminophen (*CRX) 5-325 MG TABLET 1 TAB PO (10:26)
[2025-03-01] MEDS: LOPERAMIDE HCL 2 MG CAPSULE PO (13:49)
--- NOTE | 2025-03-01 15:13 | P.DS_ITS ---
DS: Admitting Diagnosis Discharge Date 03/01/2025 Admitting Diagnosis Hematoma DS: Discharge Diagnosis Discharge Diagnosis (1) Hematoma of right lower leg: Code(s): S80.11XA - Contusion of right lower leg, initial encounter Status: Acute (2) Cellulitis of right lower extremity: Code(s): L03.115 - Cellulitis of right lower limb Status: Acute (3) Anemia: Code(s): D64.9 - Anemia, unspecified Status: Acute (4) Bacteremia: Code(s): R78.81 - Bacteremia Status: Acute (5) UTI (urinary tract infection): Qualifiers: Hematuria presence: with hematuria Urinary tract infection type: acute cystitis Qualified Code(s): N30.01 - Acute cystitis with hematuria Code(s): N39.0 - Urinary tract infection, site not specified Status: Acute (6) HTN (hypertension): Qualifiers: Hypertension type: essential hypertension Qualified Code(s): I10 - Essential (primary) hypertension Code(s): I10 - Essential (primary) hypertension Status: Acute (7) Hypothyroidism (acquired): Code(s): E03.9 - Hypothyroidism, unspecified Status: Chronic DS: Summary Hospital Course Reason for hospitalization: Bilateral leg pain, right lower extremity hematoma Hospital Course: The patient is an 84-year-old female who presents to the emergency department for evaluation of bilateral leg pain and right lower extremity swelling. She was recently evaluated to address prior to admission and GI for right leg hematoma. She denies any known injury to the lower extremities that she knows of. Patient is a poor history but is A&O x3 consistently. She is a resident of [facility] and according to their report, patient had a skin tear to right lower extremity and on when they were changing her bandage they noticed a large hematoma in the subsequently sent to the ER. She was then subsequently discharged with a hematoma of the right lower leg with cellulitis. She came back to the hospital on the 24 of February for similar issue. She reported minimal pain to the left like but continued pain to the right leg and right leg swelling. At this time patient had a CT of the lower extremity which showed a large right lower leg subcutaneous hematoma, unchanged in size from the 22 of February. Right tibia/fibula x-ray showed no acute osseous abnormality, soft tissue swelling which is increased when compared to previous examination. In ED: WBC 13.2, RBC 2.91, Hgb 9.0, 27.8, Plt 333, MCV 95.5, PT 16.7, INR 1.3, APTT 26.8, Na 134, K 4.6, Cl 104, CO 24, BUN 29, Cr 1.16 ,eGFR 45, Ca 7.8, normal LFTs. UA: 2+ protein, trace ketones, 2+ leukocyte esterase, 3+ blood, > 100 RBC, >100 WBC, + 1 bacteria. C diff negative. Vitamin B12 961, TSH 6.1 free T4 1.55 total T3 0.60. General surgery was consulted for hematoma right leg. In examination and noted marked circumferential hematoma to the right lower leg which did not appear to be involving full-thickness skin but possibly a skin necrosis with early cellulitis. He recommended debridement with excavation of the hematoma. This was performed on 02/27. After this was performed, for wound remains cl shaikr and without signs of infection. Dressing was updated daily and remained intact without excessive bleeding or drainage. Patient continued to complain of nonspecific bilateral lower extremity pain, likely a chronic issue but difficult to ascertain as patient displays some confusion, but she has remained a and O x3 throughout her visit. Vital signs also remained stable throughout visit. She r emained afebrile with improving leukocytosis that decreased from 14 to 10.3 at time of discharge. CMP largely unremarkable. General surgery remained on board and were okay with discharge from their standpoint with close follow-up in the outpatient office in 1-2 weeks. She is to remain on antibiotic coverage for bacteremia and cellulitis of the lower extremity. Urine culture resulted negative, UTI ruled out but will remain on antibiotic coverage for previously stated issues. She will be given a prescription for Augmentin and Flagyl. Patient is otherwise stable and requires no further workup in hospital. Plan for discharge back to [facility] at this time. Status at Discharge Overall status at discharge: patient is back to baseline Time Spent with Patient Time attestation: Total time spent providing and/or coordinating discharge services: 35 Exam Narrative: General: well appearing, appears stated age. HEENT: normocephalic, atraumatic. Mucous membranes moist. EOMI, PERRLA Respiratory: clear to ascultation bilaterally. No rales/rhonic/wheezes. Cardiovascular: Regular rate and rhythm, normal S1-S2 upon ascultation. No murmurs, rubs, or clicks. Abdomen: Soft, round, no pulsatile masses, nondistended and nontender. No rebound, no guarding. No CVA tenderness, no hepatosplenomegaly. Bowel sounds present to all four quadrants. No high pitch or tinkling sounds, resonant to percussion. Extremities: No cyanosis, clubbing, or edema present. Pulses are palpable 2/2. Right lower extremity Large hematoma post-op debridement/excavation, dressing with minimal bleeding/drainage Neuro: Alert and orientated x 3. . Skin: Right lower leg dressing intact and draining . Warm, dry, and intact, without rash, or lesion. Psych: pleasant, cooperative, normal speech, normal affect, no hallucinations, no dysarthia DS: Data Data Completed and Pending Labs on day of discharge: Labs from last 24 hours 03/01/25 05:13 WBC 10.3 H RBC 2.46 L Hgb 7.5 L Hct 23.9 L MCV 97.2 MCH 30.5 MCHC 31.4 L RDW 15.9 H Plt Count 373 MPV 10.8 H Immature Gran % (Auto) 0.8 H Neut % (Auto) 67.4 Lymph % (Auto) 26.8 [place] % (Auto) 4.5 Eos % (Auto) 0.2 Baso % (Auto) 0.3 Lymph # (Auto) 2.77 [place] # (Auto) 0.5 Eos # (Auto) 0.0 Baso # (Auto) 0.0 Abs Immat Gran (auto) 0.08 H Absolute Neuts (auto) 7.0 H Absolute Nucleated RBC 0.000 Nucleated RBC % 0.0 Sodium 137 Potassium 4.3 Chloride 105 Carbon Dioxide 27 Anion Gap 5 BUN 16 Creatinine 1.01 H Estim Creat Clear Calc 28 Estimated GFR 52 L Glucose 79 Calcium 7.8 L Total Bilirubin < 0.1 L AST 34 ALT 30 Alkaline Phosphatase 89 Total Protein 6.0 L Albumin 2.3 L Preliminary micro results at discharge 02/24/25 18:30 Blood Culture - Preliminary Blood Clostridium ramosum 02/24/25 18:30 Blood Culture - Preliminary Blood Clostridium ramosum Discharge Plan Discharge Attending physician on discharge: Sundar Richter Consulting providers: Luis M Hernandez Discharging Clinician: Sundar Richter Anticipated Discharge Date/Time: 03/01/25 14:56 Patient Disposition: SNF Activity: as tolerated Diet: as tolerated Wound Care Instructions: follow printed instructions and keep dressing dry Discharge Instructions: Take medications as prescribed. You will be prescribed 5 days of Augmentin and Flagyl. Remain active, full weight-bearing status Continue with physical therapy and occupational therapy to improve strength and endurance and returned back to baseline strength Continue with fall precautions, remove rugs within the home, use hand rails when climbing stairs and use assistive devices when needed to ambulate Follow-up with primary care provider within 1 weeks Follow up with Dr. Hernandez of General Surgery in 1-2 weeks regarding further outpatient management of your wound. Thank you for choosing [facility] for your healthcare needs Patient Instructions: Apixaban (By mouth), Debridement (DC) Patient Language: Indonesian Stand Alone Forms: General Discharge Information Follow-up/Referrals: Henry Hinojosa MD [Primary Care Provider] - Luis M Hernandez, [Physician] - Discharge Medications: New amoxicillin-pot clavulanate 875-125 mg tablet 1 tablet PO Q12H 5 Days Qty: 10 0RF metronidazole 500 mg tablet 500 mg PO Q8H 5 Days Qty: 15 0RF Continued meclizine 25 mg tablet 25 mg PO Q8H PRN (Reason: Dizziness) Rx Instructions: TAKE 1 TABLET BY MOUTH THREE TIMES DAILY NEEDED FOR DIZZINESS melatonin 10 mg Tablet 10 mg PO HS PRN (Reason: Insomnia) donepezil 5 mg tablet 10 mg PO DAILY calcium carbonate [Oyster Shell Calcium 500] 500 mg calcium (1,250 mg) Tablet 1,000 mg PO 1000,1400,1800 Qty: 30 0RF guaifenesin [Mucus Relief ER] 600 mg Tablet Extended Release 12hr 600 mg PO Q12HR Qty: 30 0RF losartan 50 mg tablet 50 mg PO QHS atorvastatin 20 mg tablet 20 mg PO QPM cholestyramine (with sugar) 4 gram Powder In Packet 1 ea PO DAILY@1000 Qty: 14 0RF acetaminophen 325 mg Tablet 650 mg PO Q4H PRN (Reason: Mild Pain (1-3) Or Fever) Qty: 10 0RF levothyroxine [Synthroid] 100 mcg Tablet 100 mcg PO DAILY@0630 Qty: 30 0RF magnesium oxide 400 mg (241.3 mg magnesium) Tablet 400 mg PO DAILY Qty: 30 0RF cephalexin 500 mg capsule 500 mg PO Q6H 7 Days Qty: 28 0RF donepezil 10 mg tablet 10 mg PO HS bisacodyl 10 mg suppository 10 mg RECTAL DAILY PRN (Reason: constipation) buspirone 10 mg tablet 10 mg PO TID escitalopram oxalate 10 mg tablet 5 mg PO DAILY ipratropium-albuterol 0.5 mg-3 mg(2.5 mg base)/3 mL solution for nebulization 3 ml inhalation TID magnesium hydroxide 400 mg/5 mL suspension 400 mg PO HS PRN (Reason: constipation) silver sulfadiazine [Silvadene] 1 % cream 1 applic topical PRN Rx Instructions: apply a 1.5 mm thickness to left lateral leg loperamide 2 mg Capsule 2 mg PO Q6H PRN (Reason: Diarrhea) ergocalciferol (vitamin D2) [Vitamin D2] 1,250 mcg (50,000 unit) Capsule 1,250 mcg PO WEEKLY Rx Instructions: Take weekly on Wednesdays Eliquis 5 mg Tablet 10 mg PO Q12HR pantoprazole 40 mg tablet,delayed release (DR/EC) 40 mg PO BID 30 Days Qty: 180 3RF Discontinued metronidazole 500 mg Tablet 500 mg PO Q8HR Qty: 7 0RF cefdinir 300 mg Capsule 300 mg PO Q12HR Qty: 5 0RF levothyroxine 150 mcg tablet 100 mcg PO DAILY@0630 losartan 25 mg tablet 50 mg PO DAILY Date of admission: 02/25/25 18:17 Primary Care Provider: Henry Hinojosa Admitting Provider: Carmen Art Attending physician on admission: Sundar Richter Condition: Stable Quality VTE Prophylaxis VTE prophylaxis: mechanical ordered
--- NOTE | 2025-03-01 17:50 | PC.NURSE ---
On 03/01/25, the REGIONAL DIRECTOR OF FINANCE, Apryl Reynaga, provided care and completed [employer] documentation on this patient. I have reviewed the REGIONAL DIRECTOR OF FINANCE's documentation and agree with the findings.
== END 2025-03-01 17:50 | DRG 570 ==
LOC: ANHED 21:43 → ANH3MEDSUR 02-25 07:19
PROVIDERS: Nurse Practitioner Gerontology; Student in an Organized Health Care Education/Training Program; Surgery; Admitting Provider General Practice; Emergency Provider General Practice; PCP Emergency Medicine; Visit Provider Physician Assistant
PROC: 0JBN0ZZ Excision of Right Lower Leg Subcutaneous Tissue and Fascia, Open Approach (ICD-10-PCS; principal; 2025-02-27 09:30)
DX: S80.11XA Contusion of right lower leg, initial encounter (principal); I50.33 Acute on chronic diastolic (congestive) heart failure; R78.81 Bacteremia; N39.0 Urinary tract infection, site not specified; L03.115 Cellulitis of right lower limb; D62 Acute posthemorrhagic anemia; I13.0 Hypertensive heart and chronic kidney disease with heart failure and stage 1 through stage 4 chronic kidney disease, or unspecified chronic kidney disease; N18.30 Chronic kidney disease, stage 3 unspecified; I48.91 Unspecified atrial fibrillation; I73.9 Peripheral vascular disease, unspecified; I87.2 Venous insufficiency (chronic) (peripheral); J44.9 Chronic obstructive pulmonary disease, unspecified; E55.9 Vitamin D deficiency, unspecified; E03.9 Hypothyroidism, unspecified; K21.9 Gastro-esophageal reflux disease without esophagitis; K52.9 Noninfective gastroenteritis and colitis, unspecified; B96.89 Other specified bacterial agents as the cause of diseases classified elsewhere; M06.9 Rheumatoid arthritis, unspecified; F32.A Depression, unspecified; F41.9 Anxiety disorder, unspecified; Z87.442 Personal history of urinary calculi; Z79.01 Long term (current) use of anticoagulants; Z86.718 Personal history of other venous thrombosis and embolism; Z87.891 Personal history of nicotine dependence
CPT/HCPCS: 36415; 73590; 73701; 80048; 80053; 81001; 82607; 82746; 83540; 83550; 83735; 84439; 84443; 84480; 85025; 85027; 85610; 85730; 87040; 87086; 87493; 93005; 94640; 96365; 96367; 97162; 97166; 99213; 99285; A9270; G0378; G0463; J0690; J0696; J1836; J2003; J2270; J2371; J2405; J2704; J3010; J7120; Q9967